=== PATIENT | male | born 1950 | race Two or more races ===

== ENCOUNTER 2024-03-27 16:28 | Inpatient (IN) | payer MEDICARE, MEDICAID, SELFPAY ==
--- NOTE | 2024-03-27 14:25 | XR_ITS ---
Examination: AP chest single view Technique one AP portable semiupright chest single view Exam date and time: March 27, 2024 1719 hrs. Comparison February 10, 2021 Indications: Status post tracheostomy tube placement Findings: Tracheostomy tube tip 5.8 cm above delmy Opacity right base consistent with pneumonia Reduced inspiratory effort Normal heart size Impression: Tracheostomy tube tip 5.8 cm above delmy Right base pneumonia, consider aspiration pneumonia
[2024-03-27 17:45] VITALS: PULSE 96; RESP 19; O2SAT 99
[2024-03-27 17:45] LABS: Basophils # (Auto) 0.1 Thou/mm3 (0.0-0.2); Basophils % (Auto) 1 % (0-2.5); Eosinophils # (Auto) 0.3 Thou/mm3 (0.0-0.5); Eosinophils % (Auto) 3 % (0-10); Hematocrit 31.6 % (41.0-53.0); Immature Granulocytes % (Auto) 0 % (0-0); Immature Granulocytes Auto 0.04 Thou/mm3 (0.00-0.00); Lymphocytes # (Auto) 1.8 Thou/mm3 (1.0-4.8); Lymphocytes % (Auto) 20 % (10-50); Mean Corpuscular HGB Conc 31.6 g/dl (31.0-37.0); Mean Corpuscular Hemoglobin 30.7 pg (25.0-35.0); Mean Corpuscular Volume 97 fL (80-100); Monocytes # (Auto) 0.7 Thou/mm3 (0.0-0.8); Monocytes % (Auto) 8 % (0-12); Neutrophils # (Auto) 6.2 Thou/mm3 (1.8-7.7); Neutrophils % (Auto) 68 % (37-80); Nucleated Red Blood Cell % 0 /100 WBC (0); Platelet Count 248 Thou/mm3 (140-440); RDW Standard Deviation 51.3 fL (35.1-43.9); Red Blood Count 3.26 Miln/mm3 (4.50-5.90)
--- NOTE | 2024-03-27 17:49 | PC.RT ---
per Dr Rolle the ABG should be drawn when the patient settles.
[2024-03-27 18:00] VITALS: BP 106/59; PULSE 88; RESP 20; TEMP 36.1; O2SAT 99
[2024-03-27 18:06] LABS: Alanine Aminotransferase 80 U/L (10-49); Albumin/Globulin Ratio 1.3 (1.2-2.2); Alkaline Phosphatase 214 U/L (46-116); Anion Gap 11 (7-16); Aspartate Amino Transferase 35 U/L (0-34); BUN/Creatinine Ratio 23 Ratio (12-20); Bilirubin,Total 0.3 mg/dL (0.3-1.2); Blood Urea Nitrogen 14 mg/dL (9-23); Calcium 9.6 mg/dL (8.3-10.6); Calcium (Corrected) 9.6 mg/dL (8.5-10.1); Carbon Dioxide 26.7 mMol/L (20.0-31.0); Chloride 102 mMol/L (98-107); Creatinine (Component) 0.6 mg/dL (0.6-1.3); Estimated Creatinine Clearance 80.9 mL/min (>60); Globulin 3.2 gm/dL (2.3-3.5); Glucose 100 mg/dL (74-106); Osmolality,Calculated 279 (275-295); Sodium 140 mMol/L (136-145); Total Protein 7.2 gm/dL (5.7-8.2); eGFR > 60 See Note
[2024-03-27 18:28] VITALS: PULSE 69; RESP 10; O2SAT 100
--- NOTE | 2024-03-27 18:34 | PC.NURSE ---
73 y/o male admit from [facility] at 1613. Arrived on gurney accompanied by 2 cardiovascular operating room nurse. Placed on Vent by RT with settings as follows :AC 10, PC 16, FIO2 99%. V/S 97.0, 88, 20, 106/59. GCS 10. Vietnamese speaking. Oriented to unit, room and admit procedures. Hx of CVA, Dementia, PNA. Recent trach insertion, reddened but no discharge noted. Scabs/abrasions noted to right ear, left and right neck. Rhonchi noted to lungs. Active bowel sounds. GT site noted to have Hypergranulation and drainage. Bruise to right hand. No dermatitis noted. No redness noted to heels or bony prominences. Combative when attempting to reposition resident. Tube feeding started, Jevity 1.2 @ 55ml/hr.
--- NOTE | 2024-03-27 19:25 | PC.NURSE ---
Received resident from [facility] at around 1630. Resident awake and agitated. striking at nursing staff, pulling at life sustaining tubes. resident unable to follow commands. (HX Dementia). assisted resident to bed. on mechanical ventilator, no respiratory distress noted upon arrival vital signs within normal limits. Complete assessment done. No major skin issues noted. Notified MD. order to place mitten to rt hand. carried out most orders. hand off report given to Susannah AMES NOC. family at bedside able to sign consents for medication (seroquel) and application of restrain as needed.
--- NOTE | 2024-03-27 22:11 | ESHP_ITS ---
Physical exam Physical Exam Vital signs: Temp Pulse Resp BP Pulse Ox O2 Del Method FiO2 97.0 F 88 20 106/59 L 99 Mechanical Ventilation 30 03/27/24 18:00 03/27/24 18:00 03/27/24 18:00 03/27/24 18:00 03/27/24 18:00 03/27/24 18:00 03/27/24 17:53 Narrative: VSS Constitutional Comments: VSS HEENT Exam Head: Present normocephalic Eye: Present PERRL ENT: Present mucous membranes moist Neck Exam Neck: Present supple Chest/Breast/Axilla Exam Comments: NAD Respiratory Exam Respiratory: Present chest non-tender, lungs clear, normal breath sounds, no resp distress and patient mechanically ventilated Comments: pr very stable on Ventilator AC mode pressure control of 16 cms H2O generating a minute ventilation of 6L a minute maintaining saturations greater than 95% and in no distress. Cardiovascular Exam Cardiovascular: Present RRR, S1 and S2 Comments: occasional multifocal atrial tachycardia responding well to Ca++ channel blocke rs Abdominal Exam Abdominal: Present soft, normoactive bowel sounds and ostomy Rectal Exam Comments: deferred Exam Comments: NAD Extremities Exam Comments: no edema Back/Spine/Pelvis Exam Comments: NAD Neurological Exam Comments: mostly sleepy, occasionally agitated but controlled on Seroquil. Overtly having Dementia and hence dioriented in person and overtly forgetful Rehabilitation potential Diagnosis (1) CVA, old, aphasia: Status: Chronic (2) Jejunostomy tube present: Status: Chronic (3) Chronic respiratory failure: Status: Chronic (4) Tracheostomy in place: Status: Chronic (5) Ventilator dependent: Status: Chronic (6) Diabetes mellitus type 2 in nonobese: Status: Chronic (7) Dementia: Status: Chronic (8) Hyperlipidemia associated with type 2 diabetes mellitus: Status: Chronic Assessment & Plan Assessment: Pt has multiple organ compromise and remains ventilator dependent for now with G tube feeding and severely handicapped with progressive Dementia and reddering him dependent for all care and bed bound and occasionally in some restraints resultant of agitated behavioral episodes Plan: Current treatment reviewed and continued Prognosis Prognosis: poor for any independent living Goals Nutrional and nursing support to achieve objective of comfort HPI History of Present Illness HPI: pt is a 73 yrs of age male being 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 Pt is on active treatment for DM-II, and on Seroquil for significant agitation with good effect.
[2024-03-28] VITALS (8 sets, daily range): BP systolic 122–155; BP diastolic 62–88; PULSE 84–103; RESP 10–20; TEMP 36.1–36.5; O2SAT 98–100
--- NOTE | 2024-03-28 02:50 | PC.NURSE ---
Resident noted to swing both arms and legs, 5 staff were needed to reposition and change brief, seraquel was not available in the cubix, resident made a hole in the mitten on the mesh side and cause self inflicted scratches to left kulkarni and lateral thigh, new order placed and carried out, resident in room resting with eyes open, HOB elevated, no s/s of distress noted.
--- NOTE | 2024-03-28 04:52 | PC.RT ---
Pt would not allow trach care to be performed, pt is combative and pushed me away and tried to hit me multiple times.
[2024-03-28] MEDS: IPRATROPIUM/ALBUTEROL 3 ML AMPUL.NEB INH ×3 (06:45→19:18)
[2024-03-28] MEDS: QUETIAPINE FUMARATE 100 MG TABLET GT ×2 (10:00→20:49)
[2024-03-28] MEDS: CALCIUM GT (10:00)
[2024-03-28] MEDS: VIT D3 GT (10:00)
[2024-03-28] MEDS: ASPIRIN 81 MG TAB.CHEW GT (10:00)
[2024-03-28] MEDS: PIOGLITAZONE 15 MG TABLET GT (10:00)
--- NOTE | 2024-03-28 10:56 | PC.PT ---
PT eval completed. No RNA/SLAGGER program due to patient is combative and is uncooperative.
[2024-03-28 11:09] LABS: Base Excess 5 (-3-3); HCO3 30 mEq/L (20-26); Inspired Oxygen, FIO2 21 %; O2 Saturation 80 % (91-98); PCO2 47 mmHg (32.0-48.0); pH, Arterial 7.41 (7.35-7.45)
[2024-03-28 11:12] LABS: PO2 46 mmHg (83-108)
[2024-03-28 11:13] LABS: Allen Test Performed/OK; Puncture Site Site Not Noted
--- NOTE | 2024-03-28 12:21 | PC.SS ---
Resident admitted from [facility] for subacute care on ventilator and GT in place for medication and nutrition. Resident is samaritan bahai, no speech unable to make needs known or make any decisions for self. RP is his Meli. Resident does not have POA in place, services offered to RP for Advance Directive resident unable to participate due to diagnosis of dementia. RP does not feel it is necessary and has declined services of POA and conservatorship. Resident currently taking medication for behaviors of being combative to staff related to kicking, biting and hitting. SSD will make daily contact with resident and monitor for changes in mood and behavior, and transitioning to new environment. Resident will have optometry, dental and podiatry consultations.
[2024-03-28] MEDS: DEX/HYPRO/GLY ARTIFICAL TEARS 225 DROP/15 ML BTL BOTH EYES ×2 (13:30→20:50)
--- NOTE | 2024-03-28 13:53 | PC.NURSE ---
Blood gas drawn this morning with critical value, RT mad aware of it.
--- NOTE | 2024-03-28 16:20 | PC.SS ---
This SSD faxed urology consult order and history to urology clinic, clerk Looney called this SSD and said Dr. Acevedo would be here on Sunday or Sunday for bedside consult. Charge nurse made aware.
--- NOTE | 2024-03-28 16:53 | PC.NURSE ---
Resident on tube feeding to run for 24 hours and requiring to hold tube feeding when doing the ADLS to prevent aspiration. Called Cristofer GRECO, tube feeding to run x 22 hours and Gale will evaluate it on Sunday.
[2024-03-29] VITALS (8 sets, daily range): BP systolic 119–141; BP diastolic 56–72; PULSE 73–93; RESP 10–18; TEMP 36.1–36.5; O2SAT 97–100
[2024-03-29] MEDS: DEX/HYPRO/GLY ARTIFICAL TEARS 225 DROP/15 ML BTL BOTH EYES ×3 (05:45→21:53)
[2024-03-29] MEDS: IPRATROPIUM/ALBUTEROL 3 ML AMPUL.NEB INH ×3 (06:30→19:29)
[2024-03-29] MEDS: PIOGLITAZONE 15 MG TABLET GT (08:39)
[2024-03-29] MEDS: ASPIRIN 81 MG TAB.CHEW GT (08:39)
[2024-03-29] MEDS: QUETIAPINE FUMARATE 100 MG TABLET GT ×2 (08:39→20:55)
[2024-03-29] MEDS: CALCIUM GT (08:39)
[2024-03-29] MEDS: VIT D3 GT (08:39)
--- NOTE | 2024-03-29 11:15 | PD.SAPROG ---
Progress Note - SubAcute DIAGNOSIS (1) CVA, old, aphasia: Status: Chronic (2) Jejunostomy tube present: Status: Chronic (3) Chronic respiratory failure: Status: Chronic (4) Tracheostomy in place: Status: Chronic (5) Ventilator dependent: Status: Chronic (6) Diabetes mellitus type 2 in nonobese: Status: Chronic (7) Dementia: Status: Chronic (8) Hyperlipidemia associated with type 2 diabetes mellitus: Status: Chronic OBJECTIVE Most recent vital signs: Last Vital Signs Temp 97.3 F 03/30/24 06:00 Pulse 94 03/30/24 06:30 Resp 14 03/30/24 06:30 BP 129/61 03/30/24 06:00 Pulse Ox 100 03/30/24 06:30 O2 Del Method Mechanical Ventilation 03/29/24 17:43 FiO2 21 03/30/24 06:30 Neurological:: semi-alert (very forgetful because of Dementia, disoriented mostly in place and person and time and resultant agitation well managed on meds) Speech:: grunts Answers questions:: sometimes ( by gesture) Respiratory:: shallow breathing (ventilator dependent) Cardiovascular: RRR Abdomen: soft and nontender Tracheostomy:: to ventilator Feeding per:: G tube Complaints:: none Reviewed Medical Record:: reviewed labs ASSESSMENT & PLAN Assessment: Pt has multiple organ compromise and remains ventilator dependent for now with G tube feeding and severely handicapped with progressive Dementia and rendering him dependent for all care and bed bound and occasionally in some restraints resultant of agitated behavioral episodes Plan: Current treatment reviewed and continued
[2024-03-30] VITALS (8 sets, daily range): BP systolic 122–164; BP diastolic 60–81; PULSE 76–102; RESP 10–18; TEMP 36.2–36.6; O2SAT 97–100
[2024-03-30] MEDS: IPRATROPIUM/ALBUTEROL 3 ML AMPUL.NEB INH ×4 (00:05→18:20)
[2024-03-30] MEDS: DEX/HYPRO/GLY ARTIFICAL TEARS 225 DROP/15 ML BTL BOTH EYES ×3 (05:30→21:11)
[2024-03-30] MEDS: VIT D3 GT (09:42)
[2024-03-30] MEDS: ASPIRIN 81 MG TAB.CHEW GT (09:42)
[2024-03-30] MEDS: CALCIUM GT (09:42)
[2024-03-30] MEDS: QUETIAPINE FUMARATE 100 MG TABLET GT ×2 (09:44→20:20)
[2024-03-30] MEDS: PIOGLITAZONE 15 MG TABLET GT (09:44)
[2024-03-31] VITALS (7 sets, daily range): BP systolic 128–140; BP diastolic 73–77; PULSE 82–97; RESP 11–19; TEMP 36.1; O2SAT 98–100
[2024-03-31] MEDS: IPRATROPIUM/ALBUTEROL 3 ML AMPUL.NEB INH ×4 (00:35→19:48)
[2024-03-31] MEDS: DEX/HYPRO/GLY ARTIFICAL TEARS 225 DROP/15 ML BTL BOTH EYES ×2 (05:59→21:18)
[2024-03-31] MEDS: QUETIAPINE FUMARATE 100 MG TABLET GT ×2 (08:33→20:39)
[2024-03-31] MEDS: ASPIRIN 81 MG TAB.CHEW GT (08:34)
[2024-03-31] MEDS: PIOGLITAZONE 15 MG TABLET GT (08:34)
[2024-03-31] MEDS: CALCIUM GT (08:34)
[2024-03-31] MEDS: VIT D3 GT (08:34)
--- NOTE | 2024-03-31 10:30 | PC.NURSE ---
Band Reamer Machine Operator came in and accidentally elda right great toe. No active bleeding noted at this time.
[2024-04-01] VITALS (9 sets, daily range): BP systolic 108–141; BP diastolic 74–88; PULSE 96–116; RESP 13–31; TEMP 36.5–37.2; O2SAT 95–100
[2024-04-01] MEDS: IPRATROPIUM/ALBUTEROL 3 ML AMPUL.NEB INH ×3 (01:13→11:55)
[2024-04-01] MEDS: DEX/HYPRO/GLY ARTIFICAL TEARS 225 DROP/15 ML BTL BOTH EYES ×2 (06:00→21:04)
[2024-04-01] MEDS: ASPIRIN 81 MG TAB.CHEW GT (08:58)
[2024-04-01] MEDS: PIOGLITAZONE 15 MG TABLET GT (09:03)
[2024-04-01] MEDS: CALCIUM GT (09:03)
[2024-04-01] MEDS: VIT D3 GT (09:03)
[2024-04-01] MEDS: MAGNESIUM HYDROXIDE 30 ML ORAL SUSP ML GT (09:50)
--- NOTE | 2024-04-01 13:58 | PC.NURSE ---
Dr. Acevedo came to check the resident for his bulbar urethral stricture, . said as long as resident dont have any problem from voiding everything is ok, no new recommendation at this time.
--- NOTE | 2024-04-01 15:35 | PC.RT ---
per idt meeting svn changed to prn
[2024-04-01] MEDS: ACETAMINOPHEN 325 MG TABLET 650 MG GT (22:05)
[2024-04-02] VITALS (8 sets, daily range): BP systolic 108–149; BP diastolic 65–86; PULSE 81–98; RESP 11–19; TEMP 36.1–36.7; O2SAT 96–98
[2024-04-02] MEDS: DEX/HYPRO/GLY ARTIFICAL TEARS 225 DROP/15 ML BTL BOTH EYES ×2 (05:45→21:13)
--- NOTE | 2024-04-02 08:52 | URONOTEN_ITS ---
RE: MARTHA ANDUJAR : 1950 DATE: 04/01/2024 The patient is seen, chart is reviewed. Consult is dictated. I was unable to get any information from the patient all the information I obtained is by reviewing the patient's chart ESTABLISHED DIAGNOSES: 1. Dementia. 2. Status post cerebrovascular accident, status post G-tube dependent. 3. Multiple organ compromise remains ventilator dependent. HISTORY OF PRESENT ILLNESS: This is a 73-year-old gentleman. He is admitted to [facility] for long-term care with the issue of chronic respiratory failure, on ventilator support with a tracheostomy and feeding GI tube, with a progressively worsening advanced dementia, status post CVA in 2012. The patient was admitted in the hospital in [place] and had a placement of catheter. The patient was found to have a stricture of bulbous urethra and it was dilated. Subsequently, catheter has been removed and the patient is urinating without a catheter. Past medical history, family history, review of systems, personal history, please refer to patient's history form dated, 03/27/2024, it is in HPI, in EMR. PHYSICAL EXAMINATION: The patient is lying comfortably, not in acute distress. He is on ventilator. The patient has body contractures. RECOMMENDATIONS: From urology point of view, assessment is from the history I reviewed from the patient's chart that he had a stricture of bulbous urethra. He had dilation and placement of catheter, which was subsequently removed. At this time, the patient is urinating without any problem for his bulbous urethra. If he gets recurrence of the stricture, then, he may need to have a dilation and placement of Godinez catheter. I discussed my finding with the RN who is taking care of this patient. DT: 16:44:03 TT: 21:09:00 Ref: [id number] - TID: [id number] JESSY
[2024-04-02] MEDS: PIOGLITAZONE 15 MG TABLET GT (09:01)
[2024-04-02] MEDS: QUETIAPINE FUMARATE 100 MG TABLET GT ×2 (09:01→20:45)
[2024-04-02] MEDS: CALCIUM GT (09:01)
[2024-04-02] MEDS: ASPIRIN 81 MG TAB.CHEW GT (09:01)
[2024-04-02] MEDS: VIT D3 GT (09:01)
[2024-04-02] MEDS: ACETAMINOPHEN 325 MG TABLET 650 MG GT (10:00)
--- NOTE | 2024-04-02 12:01 | PC.NURSE ---
Per spouse resident has received current influenza vaccine; no notations in case record; no [facility] report. Has received Covid MRNA on 10/22/23 amd 04/18/23; this per medical record. Will offer Pneumococcal vaccine and seek consent from daughter, Kim.
--- NOTE | 2024-04-02 22:24 | PD.SAPROG ---
Progress Note - SubAcute DIAGNOSIS (1) CVA, old, aphasia: Status: Chronic (2) Jejunostomy tube present: Status: Chronic (3) Chronic respiratory failure: Status: Chronic (4) Tracheostomy in place: Status: Chronic (5) Ventilator dependent: Status: Chronic (6) Diabetes mellitus type 2 in nonobese: Status: Chronic (7) Dementia: Status: Chronic (8) Hyperlipidemia associated with type 2 diabetes mellitus: Status: Chronic OBJECTIVE Most recent vital signs: Last Vital Signs Temp 97 F 04/02/24 17:33 Pulse 89 04/02/24 17:33 Resp 14 04/02/24 17:33 BP 135/86 H 04/02/24 17:33 Pulse Ox 97 04/02/24 17:33 O2 Del Method Mechanical Ventilation 04/02/24 17:33 FiO2 21 04/02/24 12:05 Neurological:: semi-alert (very forgetful because of Dementia, disoriented mostly in place and person and time and resultant agitation well managed on meds) Speech:: grunts Answers questions:: sometimes ( by gesture) Respiratory:: shallow breathing (ventilator dependent) Cardiovascular: RRR Abdomen: soft and nontender Tracheostomy:: to ventilator Feeding per:: G tube Complaints:: none Reviewed Medical Record:: reviewed labs ASSESSMENT & PLAN Assessment: Pt has multiple organ compromise and remains ventilator dependent for now with G tube feeding and severely handicapped with progressive Dementia and rendering him dependent for all care and bed bound and occasionally in some restraints resultant of agitated behavioral episodes Plan: Current treatment reviewed and continued
[2024-04-03] VITALS (9 sets, daily range): BP systolic 120–127; BP diastolic 46–78; PULSE 77–96; RESP 11–20; TEMP 36.1–36.4; O2SAT 96–98
--- NOTE | 2024-04-03 07:46 | PC.SS ---
Resident is seen laying in bed with head of the bed elevated with call light properly placed with no signs of distress. Resident mood and behavior is adequate, he appears to be adjusting well to new environment. Resident is not showing any signs of target behavior, this SSD followed up with staff who stated he is informed of all task being performed he settles and relaxes allowing staff to complete ADL care on him. Resident will continue medication regimen as ordered by MD, this SSD will continue to make contact with resident and monitor for changes in mood and behavior.
[2024-04-03] MEDS: ASPIRIN 81 MG TAB.CHEW GT (08:42)
[2024-04-03] MEDS: VIT D3 GT (08:43)
[2024-04-03] MEDS: QUETIAPINE FUMARATE 100 MG TABLET GT ×2 (08:43→20:40)
[2024-04-03] MEDS: PIOGLITAZONE 15 MG TABLET GT (08:43)
[2024-04-03] MEDS: CALCIUM GT (08:43)
--- NOTE | 2024-04-03 09:56 | PC.IP ---
IP note: Call to daughter regarding resident's possible current Influenza vaccine and offered pneumonia vaccine. Voice mail message left with request for return call to consent or decline. Spouse declares consent was signed for current Influenza vaccine at another facility; no notation in chart received from [facility] with exception to Covid vaccine received. No CAIR registry report shown in Summary of EMR when entering Covid vaccine notation.
--- NOTE | 2024-04-03 13:38 | PC.NURSE ---
Second call to daughter, Kim regarding vaccine status. Voice mail message to please return call to clarify current vaccine for Influenza and to offer Pneumococcal 20 vaccine. No record in [facility]IR registry.
[2024-04-03] MEDS: DEX/HYPRO/GLY ARTIFICAL TEARS 225 DROP/15 ML BTL BOTH EYES ×2 (14:16→21:26)
[2024-04-03] MEDS: FLU VACC TS 2024-25 (6 MOS UP) 45 MCG/0.5 ML VIAL IMi (15:45)
--- NOTE | 2024-04-03 15:49 | PC.IP ---
After consent received from Kim Rivera RP, administered 0.5ml Afluria 24-25 Trivalent vaccine to left deltoid. Resident tolerated well and was calm, awake. Nakita VEGA informed for VS to be taken every 4 hours.
[2024-04-03] MEDS: ACETAMINOPHEN 325 MG TABLET 650 MG GT (20:40)
[2024-04-04] VITALS (8 sets, daily range): BP systolic 129–140; BP diastolic 60–83; PULSE 62–98; RESP 10–21; TEMP 36.2–36.6; O2SAT 96–100
[2024-04-04] MEDS: DEX/HYPRO/GLY ARTIFICAL TEARS 225 DROP/15 ML BTL BOTH EYES ×3 (05:33→21:19)
[2024-04-04] MEDS: QUETIAPINE FUMARATE 100 MG TABLET GT ×2 (08:38→20:23)
[2024-04-04] MEDS: CALCIUM GT (08:38)
[2024-04-04] MEDS: VIT D3 GT (08:38)
[2024-04-04] MEDS: ASPIRIN 81 MG TAB.CHEW GT (08:38)
[2024-04-04] MEDS: PIOGLITAZONE 15 MG TABLET GT (08:38)
--- NOTE | 2024-04-04 15:43 | PC.SS ---
Room visit: Resident is laying in bed with head of the bed elevated with call light properly placed with no signs of distress. Resident remains on ventilator with trach in place and GT for medication and nutrition. Resident is unable to make needs known his daughter is his decision maker. He will remain in current care as he has no changes in care or condition. This SSD will continue to make contact with resident and monitor for changes in mood and behavior.
[2024-04-04] MEDS: MAGNESIUM HYDROXIDE 30 ML ORAL SUSP ML GT (21:30)
[2024-04-05] VITALS (8 sets, daily range): BP systolic 119–155; BP diastolic 62–81; PULSE 69–111; RESP 12–20; TEMP 36.3–36.4; O2SAT 98–100
[2024-04-05] MEDS: DEX/HYPRO/GLY ARTIFICAL TEARS 225 DROP/15 ML BTL BOTH EYES ×3 (05:30→20:40)
[2024-04-05] MEDS: ASPIRIN 81 MG TAB.CHEW GT (08:56)
[2024-04-05] MEDS: CALCIUM GT (08:57)
[2024-04-05] MEDS: VIT D3 GT (08:57)
[2024-04-05] MEDS: PIOGLITAZONE 15 MG TABLET GT (08:57)
[2024-04-05] MEDS: QUETIAPINE FUMARATE 100 MG TABLET GT ×2 (08:57→20:40)
[2024-04-05] MEDS: BISACODYL 10 MG SUPP.RECT PR (14:00)
[2024-04-05] MEDS: ACETAMINOPHEN 325 MG TABLET 650 MG GT (20:40)
[2024-04-06] VITALS: BP 113/76; PULSE 102; RESP 13; TEMP 36.3
[2024-04-06 00:06] VITALS: PULSE 71; RESP 18; O2SAT 99
[2024-04-06] MEDS: DEX/HYPRO/GLY ARTIFICAL TEARS 225 DROP/15 ML BTL BOTH EYES ×3 (05:18→22:00)
[2024-04-06 05:31] VITALS: BP 122/78; PULSE 99; RESP 15; TEMP 36.3; O2SAT 100
[2024-04-06 06:20] VITALS: PULSE 83; RESP 18; O2SAT 99
[2024-04-06] MEDS: CALCIUM GT (08:25)
[2024-04-06] MEDS: VIT D3 GT (08:25)
[2024-04-06] MEDS: PIOGLITAZONE 15 MG TABLET GT (08:25)
[2024-04-06] MEDS: ASPIRIN 81 MG TAB.CHEW GT (08:25)
[2024-04-06] MEDS: QUETIAPINE FUMARATE 100 MG TABLET GT ×2 (08:28→20:41)
[2024-04-06 12:05] VITALS: PULSE 87; RESP 20; O2SAT 99
--- NOTE | 2024-04-06 16:10 | PD.SAPROG ---
Progress Note - SubAcute DIAGNOSIS (1) CVA, old, aphasia: Status: Chronic (2) Jejunostomy tube present: Status: Chronic (3) Chronic respiratory failure: Status: Chronic (4) Tracheostomy in place: Status: Chronic (5) Ventilator dependent: Status: Chronic (6) Diabetes mellitus type 2 in nonobese: Status: Chronic (7) Dementia: Status: Chronic (8) Hyperlipidemia associated with type 2 diabetes mellitus: Status: Chronic OBJECTIVE Most recent vital signs: Last Vital Signs Temp 97.3 F 04/06/24 05:31 Pulse 87 04/06/24 12:05 Resp 18 04/06/24 06:20 BP 122/78 04/06/24 05:31 Pulse Ox 99 04/06/24 12:05 O2 Del Method Mechanical Ventilation 04/04/24 17:37 FiO2 21 04/06/24 12:05 Neurological:: semi-alert (very forgetful because of Dementia, disoriented mostly in place and person and time and resultant agitation well managed on meds) Speech:: grunts Answers questions:: sometimes ( by gesture) Respiratory:: shallow breathing (ventilator dependent) Cardiovascular: RRR Abdomen: soft and nontender Tracheostomy:: to ventilator Feeding per:: G tube Complaints:: none Reviewed Medical Record:: reviewed labs ASSESSMENT & PLAN Assessment: Pt has multiple organ compromise and remains ventilator dependent for now with G tube feeding and severely handicapped with progressive Dementia and rendering him dependent for all care and bed bound and occasionally in some restraints resultant of agitated behavioral episodes. Hemodynamically stable. Prognosis poor. Plan: Current treatment reviewed and continued
[2024-04-06 18:12] VITALS: PULSE 88; RESP 20; O2SAT 99
[2024-04-06] MEDS: ACETAMINOPHEN 325 MG TABLET 650 MG GT (22:30)
[2024-04-07] VITALS (8 sets, daily range): BP systolic 131–160; BP diastolic 66–84; PULSE 74–100; RESP 12–26; TEMP 36.1–36.3; O2SAT 98–100
[2024-04-07] MEDS: DEX/HYPRO/GLY ARTIFICAL TEARS 225 DROP/15 ML BTL BOTH EYES ×2 (06:44→14:20)
[2024-04-07] MEDS: CALCIUM GT (08:49)
[2024-04-07] MEDS: PIOGLITAZONE 15 MG TABLET GT (08:49)
[2024-04-07] MEDS: QUETIAPINE FUMARATE 100 MG TABLET GT ×2 (08:49→20:44)
[2024-04-07] MEDS: VIT D3 GT (08:49)
[2024-04-07] MEDS: ASPIRIN 81 MG TAB.CHEW GT (08:49)
[2024-04-07] MEDS: ACETAMINOPHEN 325 MG TABLET 650 MG GT ×2 (08:50→20:44)
--- NOTE | 2024-04-07 15:36 | PC.SS ---
Resident seen by engagement liaison/Dr. He for routine toe nail trim, no new orders or recommendation to continue current care.
[2024-04-08] VITALS (9 sets, daily range): BP systolic 112–134; BP diastolic 66–76; PULSE 72–94; RESP 11–20; TEMP 36.1–36.2; O2SAT 97–99
[2024-04-08] MEDS: DEX/HYPRO/GLY ARTIFICAL TEARS 225 DROP/15 ML BTL BOTH EYES ×3 (05:17→21:12)
[2024-04-08] MEDS: PIOGLITAZONE 15 MG TABLET GT (08:50)
[2024-04-08] MEDS: ASPIRIN 81 MG TAB.CHEW GT (08:50)
[2024-04-08] MEDS: CALCIUM GT (08:50)
[2024-04-08] MEDS: VIT D3 GT (08:50)
[2024-04-08] MEDS: QUETIAPINE FUMARATE 100 MG TABLET GT ×2 (08:51→20:50)
[2024-04-09] VITALS (8 sets, daily range): BP systolic 121–142; BP diastolic 57–78; PULSE 79–95; RESP 10–25; TEMP 36–36.4; O2SAT 94–99
[2024-04-09] MEDS: DEX/HYPRO/GLY ARTIFICAL TEARS 225 DROP/15 ML BTL BOTH EYES ×3 (06:04→21:02)
[2024-04-09] MEDS: ASPIRIN 81 MG TAB.CHEW GT (09:06)
[2024-04-09] MEDS: VIT D3 GT (09:07)
[2024-04-09] MEDS: PIOGLITAZONE 15 MG TABLET GT (09:07)
[2024-04-09] MEDS: CALCIUM GT (09:07)
[2024-04-09] MEDS: QUETIAPINE FUMARATE 100 MG TABLET GT ×2 (09:07→20:55)
[2024-04-09] MEDS: MAGNESIUM HYDROXIDE 30 ML ORAL SUSP ML GT (09:12)
[2024-04-10] VITALS (7 sets, daily range): BP systolic 113–153; BP diastolic 67–91; PULSE 73–106; RESP 12–18; TEMP 36.3–36.9; O2SAT 98–99
[2024-04-10] MEDS: VIT D3 GT (09:54)
[2024-04-10] MEDS: PIOGLITAZONE 15 MG TABLET GT (09:54)
[2024-04-10] MEDS: QUETIAPINE FUMARATE 100 MG TABLET GT ×2 (09:54→20:34)
[2024-04-10] MEDS: ASPIRIN 81 MG TAB.CHEW GT (09:54)
[2024-04-10] MEDS: CALCIUM GT (09:54)
[2024-04-10] MEDS: DEX/HYPRO/GLY ARTIFICAL TEARS 225 DROP/15 ML BTL BOTH EYES (13:04)
[2024-04-10 15:52] LABS: Alanine Aminotransferase 48 U/L (10-49); Albumin, Serum 3.9 gm/dL (3.4-4.8); Alkaline Phosphatase 191 U/L (46-116); Aspartate Amino Transferase 24 U/L (0-34); Bilirubin,Direct < 0.1 mg/dL (0.0-0.3); Bilirubin,Total 0.2 mg/dL (0.3-1.2); Total Protein 7.5 gm/dL (5.7-8.2)
--- NOTE | 2024-04-10 17:21 | PD.SAPROG ---
Progress Note - SubAcute DIAGNOSIS (1) CVA, old, aphasia: Status: Chronic (2) Jejunostomy tube present: Status: Chronic (3) Chronic respiratory failure: Status: Chronic (4) Tracheostomy in place: Status: Chronic (5) Ventilator dependent: Status: Chronic (6) Diabetes mellitus type 2 in nonobese: Status: Chronic (7) Dementia: Status: Chronic (8) Hyperlipidemia associated with type 2 diabetes mellitus: Status: Chronic OBJECTIVE Most recent vital signs: Last Vital Signs Temp 98 F 04/10/24 12:00 Pulse 81 04/10/24 13:06 Resp 18 04/10/24 12:00 BP 114/73 04/10/24 12:00 Pulse Ox 98 04/10/24 13:06 O2 Del Method Mechanical Ventilation 04/10/24 06:00 FiO2 21 04/10/24 13:06 Neurological:: semi-alert (very forgetful because of Dementia, disoriented mostly in place and person and time and resultant agitation well managed on meds) Speech:: grunts Answers questions:: sometimes ( by gesture) Respiratory:: shallow breathing (ventilator dependent) Cardiovascular: RRR Abdomen: soft and nontender Tracheostomy:: to ventilator Feeding per:: G tube Complaints:: none Reviewed Medical Record:: reviewed labs ASSESSMENT & PLAN Assessment: Pt has multiple organ compromise and remains ventilator dependent for now with G tube feeding and severely handicapped with progressive Dementia and rendering him dependent for all care and bed bound and occasionally in some restraints resultant of agitated behavioral episodes. Hemodynamically stable. Prognosis poor. Pt on Seroquil and closely monitored with intent to titrate to least effective dose Plan: Current treatment reviewed and continued
[2024-04-11] VITALS (7 sets, daily range): BP systolic 112–118; BP diastolic 74–76; PULSE 68–88; RESP 11–23; TEMP 36.2–36.4; O2SAT 97–98
[2024-04-11] MEDS: CALCIUM GT (09:02)
[2024-04-11] MEDS: ASPIRIN 81 MG TAB.CHEW GT (09:02)
[2024-04-11] MEDS: VIT D3 GT (09:02)
[2024-04-11] MEDS: PIOGLITAZONE 15 MG TABLET GT (09:03)
[2024-04-11] MEDS: QUETIAPINE FUMARATE 100 MG TABLET GT ×2 (09:03→20:52)
[2024-04-12] VITALS (9 sets, daily range): BP systolic 126–132; BP diastolic 64–82; PULSE 74–97; RESP 13–24; TEMP 36.1–36.6; O2SAT 98–99
[2024-04-12] MEDS: ASPIRIN 81 MG TAB.CHEW GT (08:47)
[2024-04-12] MEDS: QUETIAPINE FUMARATE 100 MG TABLET GT ×2 (08:47→21:21)
[2024-04-12] MEDS: PIOGLITAZONE 15 MG TABLET GT (08:47)
[2024-04-12] MEDS: CALCIUM GT (08:47)
[2024-04-12] MEDS: VIT D3 GT (08:47)
[2024-04-12] MEDS: ACETAMINOPHEN 325 MG TABLET 650 MG GT (08:48)
--- NOTE | 2024-04-12 17:26 | PC.NURSE ---
Resident's GT site leaks with coffee ground . GTube needs 7-10 ml of balloon but noted with 12 ml. No coffee ground noted in the residual. No s/s of pain or discomfort. Called Dr Rolle and made aware, with new orders received
--- NOTE | 2024-04-12 17:58 | PC.NURSE ---
Unable to fax new order of Omeprazole due to line is down . Phone in new order of Omeprazole to [facility], spoke with the pharmacist Ella.
--- NOTE | 2024-04-12 18:35 | PC.NURSE ---
During dressing change treatment resident noted to have coffee ground fluid noted to gtube site and on gtube dressing. No coffee ground color found during residual check. Catheter balloon to gtube found to have 12cc while it meant for 7cc-10cc. 5cc was removed and it is now 7cc. Charge nurse was made aware and Dr Rolle was notified. H/H to be drawn as well as new order for omeprazole to start 04/13/24 day shift. Gtube site was cleaned and new dressing placed. Resident resting comfortably.
[2024-04-12 18:39] LABS: Hematocrit 35.5 % (41.0-53.0); Hemoglobin 11.1 g/dL (13.5-16.0)
--- NOTE | 2024-04-12 21:33 | PC.NURSE ---
Resident aggressive towards staff kicking and hitting . 3 staff members present during care.
[2024-04-13] VITALS (8 sets, daily range): BP systolic 131–158; BP diastolic 76–92; PULSE 79–97; RESP 18–26; TEMP 36.1–36.5; O2SAT 98–99
[2024-04-13] MEDS: DEX/HYPRO/GLY ARTIFICAL TEARS 225 DROP/15 ML BTL BOTH EYES ×3 (05:56→21:33)
[2024-04-13] MEDS: CALCIUM GT (08:54)
[2024-04-13] MEDS: VIT D3 GT (08:54)
[2024-04-13] MEDS: PIOGLITAZONE 15 MG TABLET GT (08:56)
[2024-04-13] MEDS: QUETIAPINE FUMARATE 100 MG TABLET GT ×2 (08:57→21:33)
[2024-04-13] MEDS: NON-FORMULARY *SEE COMMENTS* 1 EA EA GT (08:58)
--- NOTE | 2024-04-13 09:12 | PC.NURSE ---
Resident's hemoglobin 11.1 and hematocrit 35.5, GT site leaks leaks with minimal coffee ground, nothing noted in the residual. Called Dr Rolle and made aware of it, order received to hold the ASA for one week and update MD as needed.
[2024-04-14] VITALS (7 sets, daily range): BP systolic 122–154; BP diastolic 76–91; PULSE 62–98; RESP 20–28; TEMP 36–36.7; O2SAT 92–99
[2024-04-14] MEDS: DEX/HYPRO/GLY ARTIFICAL TEARS 225 DROP/15 ML BTL BOTH EYES ×2 (05:50→21:12)
[2024-04-14] MEDS: CALCIUM GT (08:37)
[2024-04-14] MEDS: VIT D3 GT (08:37)
[2024-04-14] MEDS: NON-FORMULARY *SEE COMMENTS* 1 EA EA GT (08:39)
[2024-04-14] MEDS: PIOGLITAZONE 15 MG TABLET GT (08:39)
[2024-04-14] MEDS: QUETIAPINE FUMARATE 100 MG TABLET GT ×2 (08:39→21:06)
--- NOTE | 2024-04-14 21:41 | PD.SAPROG ---
Progress Note - SubAcute DIAGNOSIS (1) CVA, old, aphasia: Status: Chronic (2) Jejunostomy tube present: Status: Chronic (3) Chronic respiratory failure: Status: Chronic (4) Tracheostomy in place: Status: Chronic (5) Ventilator dependent: Status: Chronic (6) Diabetes mellitus type 2 in nonobese: Status: Chronic (7) Dementia: Status: Chronic (8) Hyperlipidemia associated with type 2 diabetes mellitus: Status: Chronic OBJECTIVE Most recent vital signs: Last Vital Signs Temp 96.8 F 04/14/24 17:27 Pulse 62 04/14/24 18:23 Resp 26 H 04/14/24 18:23 BP 122/91 H 04/14/24 17:27 Pulse Ox 98 04/14/24 18:23 O2 Del Method Mechanical Ventilation 04/14/24 17:27 FiO2 21 04/14/24 18:23 Neurological:: semi-alert (very forgetful because of Dementia, disoriented mostly in place and person and time and resultant agitation well managed on meds) Speech:: grunts Answers questions:: sometimes ( by gesture) Respiratory:: shallow breathing (ventilator dependent) Cardiovascular: RRR Abdomen: soft and nontender Tracheostomy:: to ventilator Feeding per:: G tube Complaints:: none Reviewed Medical Record:: reviewed labs ASSESSMENT & PLAN Assessment: Pt has multiple organ compromise and remains ventilator dependent for now with G tube feeding and severely handicapped with progressive Dementia and rendering him dependent for all care and bed bound and occasionally in some restraints resultant of agitated behavioral episodes. Hemodynamically stable. Prognosis poor. Pt on Seroquil and closely monitored with intent to titrate to least effective dose. So far well tolerated. Plan: Current treatment reviewed and continued
[2024-04-15] VITALS (8 sets, daily range): BP systolic 104–139; BP diastolic 65–82; PULSE 74–98; RESP 19–27; TEMP 36.1–36.6; O2SAT 95–98
[2024-04-15] MEDS: PIOGLITAZONE 15 MG TABLET GT (08:53)
[2024-04-15] MEDS: VIT D3 GT (08:53)
[2024-04-15] MEDS: QUETIAPINE FUMARATE 100 MG TABLET GT ×2 (08:53→20:21)
[2024-04-15] MEDS: NON-FORMULARY *SEE COMMENTS* 1 EA EA GT (08:53)
[2024-04-15] MEDS: CALCIUM GT (08:53)
[2024-04-15] MEDS: DEX/HYPRO/GLY ARTIFICAL TEARS 225 DROP/15 ML BTL BOTH EYES ×2 (13:02→21:15)
[2024-04-15] MEDS: MAGNESIUM HYDROXIDE 30 ML ORAL SUSP ML GT (21:15)
[2024-04-16] VITALS: BP 135/69; PULSE 95; RESP 24; TEMP 36.2
[2024-04-16 01:25] VITALS: PULSE 85; RESP 22; O2SAT 98
[2024-04-16 06:00] VITALS: BP 114/65; PULSE 91; RESP 23; TEMP 36.5; O2SAT 98
[2024-04-16 07:15] VITALS: PULSE 79; RESP 24; O2SAT 98
[2024-04-16] MEDS: VIT D3 GT (08:48)
[2024-04-16] MEDS: PIOGLITAZONE 15 MG TABLET GT (08:48)
[2024-04-16] MEDS: NON-FORMULARY *SEE COMMENTS* 1 EA EA GT (08:48)
[2024-04-16] MEDS: CALCIUM GT (08:48)
[2024-04-16] MEDS: QUETIAPINE FUMARATE 100 MG TABLET GT ×2 (08:49→20:34)
--- NOTE | 2024-04-16 12:25 | PD.SAPROG ---
Progress Note - SubAcute DIAGNOSIS (1) CVA, old, aphasia: Status: Chronic (2) Jejunostomy tube present: Status: Chronic (3) Chronic respiratory failure: Status: Chronic (4) Tracheostomy in place: Status: Chronic (5) Ventilator dependent: Status: Chronic (6) Diabetes mellitus type 2 in nonobese: Status: Chronic (7) Dementia: Status: Chronic (8) Hyperlipidemia associated with type 2 diabetes mellitus: Status: Chronic OBJECTIVE Most recent vital signs: Last Vital Signs Temp 97.1 F 04/19/24 06:00 Pulse 78 04/19/24 18:55 Resp 21 H 04/19/24 18:55 BP 155/81 H 04/19/24 06:00 Pulse Ox 96 04/19/24 18:55 O2 Del Method Mechanical Ventilation 04/18/24 18:00 FiO2 21 04/19/24 22:00 Neurological:: semi-alert (very forgetful because of Dementia, disoriented mostly in place and person and time and resultant agitation well managed on meds) Speech:: grunts Answers questions:: sometimes ( by gesture) Respiratory:: shallow breathing (ventilator dependent) Cardiovascular: RRR Abdomen: soft and nontender Tracheostomy:: to ventilator Feeding per:: G tube Complaints:: none Reviewed Medical Record:: reviewed labs ASSESSMENT & PLAN Assessment: Pt has multiple organ compromise and remains ventilator dependent for now with G tube feeding and severely handicapped with progressive Dementia and rendering him dependent for all care and bed bound and occasionally in some restraints resultant of agitated behavioral episodes. Hemodynamically stable. Prognosis poor. Pt on Seroquil and closely monitored with intent to titrate to least effective dose. So far well tolerated with infrequent agitation. Plan: Current treatment reviewed and continued
[2024-04-16 12:53] VITALS: PULSE 73; RESP 24; O2SAT 98
[2024-04-16] MEDS: BISACODYL 10 MG SUPP.RECT PR (14:03)
[2024-04-16] MEDS: DEX/HYPRO/GLY ARTIFICAL TEARS 225 DROP/15 ML BTL BOTH EYES ×2 (14:12→21:30)
[2024-04-16 18:56] VITALS: PULSE 84; RESP 22; O2SAT 99
[2024-04-17] VITALS: BP 134/77; PULSE 87; RESP 21; TEMP 36.1
[2024-04-17 01:11] VITALS: PULSE 71; RESP 26; O2SAT 98
[2024-04-17 05:44] VITALS: BP 145/84; PULSE 80; RESP 23; TEMP 36.1; O2SAT 96
[2024-04-17 07:19] VITALS: PULSE 74; RESP 22; O2SAT 98
[2024-04-17] MEDS: QUETIAPINE FUMARATE 100 MG TABLET GT ×2 (08:48→21:04)
[2024-04-17] MEDS: VIT D3 GT (08:49)
[2024-04-17] MEDS: NON-FORMULARY *SEE COMMENTS* 1 EA EA GT (08:49)
[2024-04-17] MEDS: PIOGLITAZONE 15 MG TABLET GT (08:49)
[2024-04-17] MEDS: CALCIUM GT (08:49)
[2024-04-17 12:28] VITALS: PULSE 77; RESP 19; O2SAT 98
[2024-04-17] MEDS: DEX/HYPRO/GLY ARTIFICAL TEARS 225 DROP/15 ML BTL BOTH EYES ×2 (14:25→21:05)
--- NOTE | 2024-04-17 15:59 | PC.SS ---
Resident was seen in activity room via Ana chair, his mood is stable and adequate. Resident remains on blow by with trach in place and GT for medication and nutrition. He will remain in current care and will continue to have all subacute care needs met by staff. This SSD will continue to make daily contact with resident and monitor for changes in mood and behavior.
[2024-04-17 16:45] VITALS: PULSE 76; RESP 29; O2SAT 98
[2024-04-18] VITALS (8 sets, daily range): BP systolic 123–150; BP diastolic 66–80; PULSE 60–90; RESP 20–26; TEMP 36.1–36.6; O2SAT 94–99
[2024-04-18] MEDS: DEX/HYPRO/GLY ARTIFICAL TEARS 225 DROP/15 ML BTL BOTH EYES (05:17)
[2024-04-18 07:04] LABS: Basophils % (Auto) 1 % (0-2.5); Eosinophils # (Auto) 0.2 Thou/mm3 (0.0-0.5); Eosinophils % (Auto) 3 % (0-10); Hematocrit 35.5 % (41.0-53.0); Hemoglobin 11.3 g/dL (13.5-16.0); Immature Granulocytes % (Auto) 0 % (0-0); Immature Granulocytes Auto 0.02 Thou/mm3 (0.00-0.00); Lymphocytes # (Auto) 1.2 Thou/mm3 (1.0-4.8); Lymphocytes % (Auto) 20 % (10-50); Mean Corpuscular HGB Conc 31.8 g/dl (31.0-37.0); Mean Corpuscular Volume 94 fL (80-100); Monocytes # (Auto) 0.5 Thou/mm3 (0.0-0.8); Monocytes % (Auto) 9 % (0-12); Neutrophils # (Auto) 4.1 Thou/mm3 (1.8-7.7); Neutrophils % (Auto) 68 % (37-80); Nucleated Red Blood Cell % 0 /100 WBC (0); Platelet Count 145 Thou/mm3 (140-440); RDW Standard Deviation 51.6 fL (35.1-43.9); Red Blood Count 3.77 Miln/mm3 (4.50-5.90)
[2024-04-18 07:18] LABS: Glucose Estimated Average 111 mg/dL (80-131); Hemoglobin A1C 5.5 % Hgb (4.8-6.0)
[2024-04-18 07:22] LABS: Alanine Aminotransferase 48 U/L (10-49); Albumin, Serum 4.3 gm/dL (3.4-4.8); Albumin/Globulin Ratio 1.4 (1.2-2.2); Alkaline Phosphatase 175 U/L (46-116); Anion Gap 4 (7-16); Aspartate Amino Transferase 44 U/L (0-34); BUN/Creatinine Ratio 43 Ratio (12-20); Bilirubin,Total 0.3 mg/dL (0.3-1.2); Blood Urea Nitrogen 17 mg/dL (9-23); Calcium 9.6 mg/dL (8.3-10.6); Calcium (Corrected) 9.6 mg/dL (8.5-10.1); Carbon Dioxide 32.5 mMol/L (20.0-31.0); Chloride 99 mMol/L (98-107); Creatinine (Component) 0.4 mg/dL (0.6-1.3); Estimated Creatinine Clearance 121.5 mL/min (>60); Globulin 3.1 gm/dL (2.3-3.5); Glucose 76 mg/dL (74-106); Glucose,Fasting 76 mg/dL (74-106); Osmolality,Calculated 270 (275-295); Potassium 4.1 mMol/L (3.4-5.1); Sodium 135 mMol/L (136-145); Total Protein 7.4 gm/dL (5.7-8.2); eGFR > 60 See Note
[2024-04-18] MEDS: QUETIAPINE FUMARATE 100 MG TABLET GT ×2 (08:35→21:36)
[2024-04-18] MEDS: VIT D3 GT (08:36)
[2024-04-18] MEDS: NON-FORMULARY *SEE COMMENTS* 1 EA EA GT (08:36)
[2024-04-18] MEDS: PIOGLITAZONE 15 MG TABLET GT (08:36)
[2024-04-18] MEDS: CALCIUM GT (08:36)
--- NOTE | 2024-04-18 17:20 | PC.NURSE ---
Routine lab draw done today, called Dr Rolle and verbally reported results, no new orders made
--- NOTE | 2024-04-18 22:20 | PC.NURSE ---
Psychosocial monitoring ongoing. Resident in good spirits, conversing with staff with excitement regarding upcoming discharge to home.
--- NOTE | 2024-04-18 22:31 | PC.NURSE ---
Psychosocial monitoring ongoing. No change in resident noted. Continues to be resistive to care at times with staff providing reassurance.
[2024-04-19] VITALS: BP 142/77; PULSE 78; RESP 20; TEMP 36.1
[2024-04-19 00:43] VITALS: PULSE 86; RESP 21; O2SAT 95
[2024-04-19 06:00] VITALS: BP 155/81; PULSE 85; RESP 20; TEMP 36.2; O2SAT 99
[2024-04-19 07:36] VITALS: PULSE 80; RESP 22; O2SAT 100
[2024-04-19] MEDS: QUETIAPINE FUMARATE 100 MG TABLET GT ×2 (08:44→20:47)
[2024-04-19] MEDS: NON-FORMULARY *SEE COMMENTS* 1 EA EA GT (08:45)
[2024-04-19] MEDS: PIOGLITAZONE 15 MG TABLET GT (08:45)
[2024-04-19] MEDS: CALCIUM GT (08:45)
[2024-04-19] MEDS: VIT D3 GT (08:45)
[2024-04-19 11:44] VITALS: PULSE 72; RESP 14; O2SAT 97
--- NOTE | 2024-04-19 15:31 | PC.NURSE ---
Psychosocial monitoring ongoing with resident in good spirits.
[2024-04-19 18:55] VITALS: PULSE 78; RESP 21; O2SAT 96
[2024-04-20] VITALS (7 sets, daily range): BP systolic 143–185; BP diastolic 64–84; PULSE 65–98; RESP 19–26; TEMP 35.8–36.4; O2SAT 96–98
[2024-04-20] MEDS: CALCIUM GT (08:34)
[2024-04-20] MEDS: VIT D3 GT (08:34)
[2024-04-20] MEDS: NON-FORMULARY *SEE COMMENTS* 1 EA EA GT (08:37)
[2024-04-20] MEDS: PIOGLITAZONE 15 MG TABLET GT (08:37)
[2024-04-20] MEDS: ASPIRIN 81 MG TAB.CHEW GT (08:48)
[2024-04-20] MEDS: QUETIAPINE FUMARATE 100 MG TABLET GT ×2 (08:48→20:22)
[2024-04-20] MEDS: DEX/HYPRO/GLY ARTIFICAL TEARS 225 DROP/15 ML BTL BOTH EYES ×2 (14:02→21:00)
[2024-04-21] VITALS (9 sets, daily range): BP systolic 121–154; BP diastolic 78–85; PULSE 70–108; RESP 10–25; TEMP 35.7–36.3; O2SAT 95–98
--- NOTE | 2024-04-21 06:30 | PC.NURSE ---
RESIDENT ATTEMPTS TO HIT STAFF WHEN PROVIDING CARE. RESIDENT DID NOT PULL ON TUBES TONIGHT.
[2024-04-21] MEDS: VIT D3 GT (08:24)
[2024-04-21] MEDS: CALCIUM GT (08:24)
[2024-04-21] MEDS: ASPIRIN 81 MG TAB.CHEW GT (08:24)
[2024-04-21] MEDS: NON-FORMULARY *SEE COMMENTS* 1 EA EA GT (08:25)
[2024-04-21] MEDS: QUETIAPINE FUMARATE 100 MG TABLET GT ×2 (08:25→20:25)
[2024-04-21] MEDS: PIOGLITAZONE 15 MG TABLET GT (08:25)
--- NOTE | 2024-04-21 12:20 | PD.SAPROG ---
Progress Note - SubAcute DIAGNOSIS (1) CVA, old, aphasia: Status: Chronic (2) Jejunostomy tube present: Status: Chronic (3) Chronic respiratory failure: Status: Chronic (4) Tracheostomy in place: Status: Chronic (5) Ventilator dependent: Status: Chronic (6) Diabetes mellitus type 2 in nonobese: Status: Chronic (7) Dementia: Status: Chronic (8) Hyperlipidemia associated with type 2 diabetes mellitus: Status: Chronic OBJECTIVE Most recent vital signs: Last Vital Signs Temp 97.7 F 04/25/24 18:00 Pulse 81 04/25/24 18:42 Resp 19 04/25/24 18:42 BP 134/75 H 04/25/24 18:00 Pulse Ox 97 04/25/24 18:42 O2 Del Method Mechanical Ventilation 04/25/24 18:00 FiO2 21 04/25/24 18:42 Neurological:: semi-alert (very forgetful because of Dementia, disoriented mostly in place and person and time and resultant agitation well managed on meds) Speech:: grunts Answers questions:: sometimes ( by gesture) Respiratory:: shallow breathing (ventilator dependent) Cardiovascular: RRR Abdomen: soft and nontender Tracheostomy:: to ventilator Feeding per:: G tube Complaints:: none Reviewed Medical Record:: reviewed labs ASSESSMENT & PLAN Assessment: Pt has multiple organ compromise and remains ventilator dependent for now with G tube feeding and severely handicapped with progressive Dementia and rendering him dependent for all care and bed bound and occasionally in some restraints resultant of agitated behavioral episodes. Hemodynamically stable. Prognosis poor. Pt on Seroquil and closely monitored with intent to titrate to least effective dose. So far well tolerated with infrequent agitation. Tolerating feedings Plan: Current treatment reviewed and continued
--- NOTE | 2024-04-21 13:14 | PC.NURSE ---
Resident received bed bath today. Tolerated well. All treatments were done. Resident resting comfortably in bed.
[2024-04-21] MEDS: DEX/HYPRO/GLY ARTIFICAL TEARS 225 DROP/15 ML BTL BOTH EYES ×2 (14:00→21:55)
--- NOTE | 2024-04-21 18:34 | PC.NURSE ---
Resident was stable, combative at times, bed bath was done, and then resident went to sleep and calm down.
[2024-04-22] VITALS (9 sets, daily range): BP systolic 137–146; BP diastolic 73–87; PULSE 71–101; RESP 17–22; TEMP 36.2–36.3; O2SAT 98–100
[2024-04-22] MEDS: DEX/HYPRO/GLY ARTIFICAL TEARS 225 DROP/15 ML BTL BOTH EYES ×2 (05:39→13:50)
--- NOTE | 2024-04-22 06:44 | PC.NURSE ---
Resident was stable, was calm and slept most of the night, no behaviors noted. will continue to monitor.
[2024-04-22] MEDS: ASPIRIN 81 MG TAB.CHEW GT (08:38)
[2024-04-22] MEDS: CALCIUM GT (08:38)
[2024-04-22] MEDS: VIT D3 GT (08:38)
[2024-04-22] MEDS: NON-FORMULARY *SEE COMMENTS* 1 EA EA GT (08:39)
[2024-04-22] MEDS: PIOGLITAZONE 15 MG TABLET GT (08:40)
[2024-04-22] MEDS: QUETIAPINE FUMARATE 100 MG TABLET GT ×2 (08:41→20:51)
[2024-04-23] VITALS (8 sets, daily range): BP systolic 102–150; BP diastolic 62–90; PULSE 71–84; RESP 16–27; TEMP 36.1–36.2; O2SAT 95–99
[2024-04-23] MEDS: DEX/HYPRO/GLY ARTIFICAL TEARS 225 DROP/15 ML BTL BOTH EYES ×3 (05:30→21:15)
[2024-04-23] MEDS: CALCIUM GT (08:31)
[2024-04-23] MEDS: VIT D3 GT (08:31)
[2024-04-23] MEDS: ASPIRIN 81 MG TAB.CHEW GT (08:31)
[2024-04-23] MEDS: QUETIAPINE FUMARATE 100 MG TABLET GT ×2 (08:34→20:32)
[2024-04-23] MEDS: NON-FORMULARY *SEE COMMENTS* 1 EA EA GT (08:34)
[2024-04-23] MEDS: PIOGLITAZONE 15 MG TABLET GT (08:34)
[2024-04-24] VITALS (8 sets, daily range): BP systolic 106–158; BP diastolic 54–84; PULSE 72–86; RESP 19–27; TEMP 36.2–36.4; O2SAT 95–98
[2024-04-24] MEDS: DEX/HYPRO/GLY ARTIFICAL TEARS 225 DROP/15 ML BTL BOTH EYES ×3 (05:10→22:28)
[2024-04-24] MEDS: ASPIRIN 81 MG TAB.CHEW GT (08:50)
[2024-04-24] MEDS: VIT D3 GT (08:51)
[2024-04-24] MEDS: QUETIAPINE FUMARATE 100 MG TABLET GT ×2 (08:51→20:20)
[2024-04-24] MEDS: PIOGLITAZONE 15 MG TABLET GT (08:51)
[2024-04-24] MEDS: CALCIUM GT (08:51)
[2024-04-24] MEDS: NON-FORMULARY *SEE COMMENTS* 1 EA EA GT (08:52)
[2024-04-24] MEDS: MAGNESIUM HYDROXIDE 30 ML ORAL SUSP ML GT (08:53)
[2024-04-24] MEDS: BISACODYL 10 MG SUPP.RECT PR (22:08)
[2024-04-25] VITALS (8 sets, daily range): BP systolic 113–152; BP diastolic 68–83; PULSE 79–97; RESP 19–27; TEMP 36.1–36.6; O2SAT 95–98
[2024-04-25] MEDS: DEX/HYPRO/GLY ARTIFICAL TEARS 225 DROP/15 ML BTL BOTH EYES ×3 (05:50→21:43)
[2024-04-25] MEDS: ASPIRIN 81 MG TAB.CHEW GT (08:19)
[2024-04-25] MEDS: NON-FORMULARY *SEE COMMENTS* 1 EA EA GT (08:19)
[2024-04-25] MEDS: VIT D3 GT (08:19)
[2024-04-25] MEDS: CALCIUM GT (08:19)
[2024-04-25] MEDS: QUETIAPINE FUMARATE 100 MG TABLET GT ×2 (08:20→20:10)
[2024-04-25] MEDS: PIOGLITAZONE 15 MG TABLET GT (08:20)
[2024-04-25] MEDS: ACETAMINOPHEN 325 MG TABLET 650 MG GT (22:30)
[2024-04-26] VITALS (8 sets, daily range): BP systolic 109–133; BP diastolic 57–72; PULSE 71–99; RESP 15–29; TEMP 36.2–36.6; O2SAT 97–98
[2024-04-26] MEDS: DEX/HYPRO/GLY ARTIFICAL TEARS 225 DROP/15 ML BTL BOTH EYES ×3 (05:26→21:10)
[2024-04-26] MEDS: CALCIUM GT (08:35)
[2024-04-26] MEDS: ASPIRIN 81 MG TAB.CHEW GT (08:35)
[2024-04-26] MEDS: VIT D3 GT (08:35)
[2024-04-26] MEDS: QUETIAPINE FUMARATE 100 MG TABLET GT ×2 (08:36→20:25)
[2024-04-26] MEDS: PIOGLITAZONE 15 MG TABLET GT (08:36)
[2024-04-26] MEDS: ACETAMINOPHEN 325 MG TABLET 650 MG GT ×2 (08:37→17:54)
[2024-04-26] MEDS: NON-FORMULARY *SEE COMMENTS* 1 EA EA GT (08:42)
[2024-04-27] VITALS (8 sets, daily range): BP systolic 118–145; BP diastolic 64–83; PULSE 84–99; RESP 16–24; TEMP 36.3–36.7; O2SAT 95–98
[2024-04-27] MEDS: DEX/HYPRO/GLY ARTIFICAL TEARS 225 DROP/15 ML BTL BOTH EYES ×3 (05:10→21:31)
[2024-04-27] MEDS: ASPIRIN 81 MG TAB.CHEW GT (08:21)
[2024-04-27] MEDS: CALCIUM GT (08:22)
[2024-04-27] MEDS: VIT D3 GT (08:22)
[2024-04-27] MEDS: NON-FORMULARY *SEE COMMENTS* 1 EA EA GT (08:24)
[2024-04-27] MEDS: PIOGLITAZONE 15 MG TABLET GT (08:40)
[2024-04-27] MEDS: QUETIAPINE FUMARATE 100 MG TABLET GT ×2 (08:40→20:37)
[2024-04-28] VITALS (8 sets, daily range): BP systolic 135–146; BP diastolic 80–89; PULSE 72–91; RESP 18–26; TEMP 36.2–36.7; O2SAT 96–100
[2024-04-28] MEDS: DEX/HYPRO/GLY ARTIFICAL TEARS 225 DROP/15 ML BTL BOTH EYES ×3 (05:38→22:05)
[2024-04-28] MEDS: VIT D3 GT (08:59)
[2024-04-28] MEDS: NON-FORMULARY *SEE COMMENTS* 1 EA EA GT (08:59)
[2024-04-28] MEDS: CALCIUM GT (08:59)
[2024-04-28] MEDS: ASPIRIN 81 MG TAB.CHEW GT (08:59)
[2024-04-28] MEDS: PIOGLITAZONE 15 MG TABLET GT (08:59)
[2024-04-28] MEDS: QUETIAPINE FUMARATE 100 MG TABLET GT ×2 (09:00→21:05)
[2024-04-29] VITALS (8 sets, daily range): BP systolic 124–142; BP diastolic 68–70; PULSE 78–90; RESP 21–31; TEMP 36.1–36.6; O2SAT 97–99
[2024-04-29] MEDS: DEX/HYPRO/GLY ARTIFICAL TEARS 225 DROP/15 ML BTL BOTH EYES ×3 (05:20→21:02)
[2024-04-29] MEDS: QUETIAPINE FUMARATE 100 MG TABLET GT ×2 (08:47→21:02)
[2024-04-29] MEDS: ASPIRIN 81 MG TAB.CHEW GT (08:56)
[2024-04-29] MEDS: VIT D3 GT (08:56)
[2024-04-29] MEDS: CALCIUM GT (08:56)
[2024-04-29] MEDS: PIOGLITAZONE 15 MG TABLET GT (08:56)
[2024-04-29] MEDS: NON-FORMULARY *SEE COMMENTS* 1 EA EA GT (08:57)
[2024-04-29] MEDS: ACETAMINOPHEN 325 MG TABLET 650 MG GT (21:04)
--- NOTE | 2024-04-29 21:28 | PD.SAPROG ---
Progress Note - SubAcute DIAGNOSIS (1) CVA, old, aphasia: Status: Chronic (2) Jejunostomy tube present: Status: Chronic (3) Chronic respiratory failure: Status: Chronic (4) Tracheostomy in place: Status: Chronic (5) Ventilator dependent: Status: Chronic (6) Diabetes mellitus type 2 in nonobese: Status: Chronic (7) Dementia: Status: Chronic (8) Hyperlipidemia associated with type 2 diabetes mellitus: Status: Chronic OBJECTIVE Most recent vital signs: Last Vital Signs Temp 97.4 F 04/29/24 17:47 Pulse 84 04/29/24 17:47 Resp 24 H 04/29/24 17:47 BP 142/68 H 04/29/24 17:47 Pulse Ox 98 04/29/24 17:47 O2 Del Method Mechanical Ventilation 04/29/24 17:47 FiO2 21 04/29/24 12:58 Neurological:: semi-alert (very forgetful because of Dementia, disoriented mostly in place and person and time and resultant agitation well managed on meds) Speech:: grunts Answers questions:: sometimes ( by gesture) Respiratory:: shallow breathing (ventilator dependent) Cardiovascular: RRR Abdomen: soft and nontender Tracheostomy:: to ventilator Feeding per:: G tube Complaints:: none Reviewed Medical Record:: reviewed labs ASSESSMENT & PLAN Assessment: Pt has multiple organ compromise and remains ventilator dependent for now with G tube feeding and severely handicapped with progressive Dementia and rendering him dependent for all care and bed bound and occasionally in some restraints resultant of agitated behavioral episodes. Hemodynamically stable. Prognosis poor. Pt on Seroquil and closely monitored with intent to titrate to least effective dose. So far well tolerated with infrequent agitation. Tolerating feedings. no pain Plan: Current treatment reviewed and continued
[2024-04-30] VITALS (8 sets, daily range): BP systolic 112–158; BP diastolic 51–76; PULSE 65–90; RESP 24–31; TEMP 36.2–36.6; O2SAT 97–99
[2024-04-30] MEDS: ASPIRIN 81 MG TAB.CHEW GT (08:48)
[2024-04-30] MEDS: CALCIUM GT (08:50)
[2024-04-30] MEDS: VIT D3 GT (08:50)
[2024-04-30] MEDS: PIOGLITAZONE 15 MG TABLET GT (08:51)
[2024-04-30] MEDS: NON-FORMULARY *SEE COMMENTS* 1 EA EA GT (08:51)
[2024-04-30] MEDS: QUETIAPINE FUMARATE 100 MG TABLET GT ×2 (08:52→21:03)
--- NOTE | 2024-04-30 12:55 | PC.NURSE ---
Seen by Dr Rolle, no new orders made.
[2024-04-30] MEDS: DEX/HYPRO/GLY ARTIFICAL TEARS 225 DROP/15 ML BTL BOTH EYES (14:20)
[2024-05-01] VITALS (8 sets, daily range): BP systolic 116–158; BP diastolic 59–85; PULSE 72–97; RESP 21–28; TEMP 36.2–36.5; O2SAT 95–99
[2024-05-01] MEDS: QUETIAPINE FUMARATE 100 MG TABLET GT ×2 (09:00→20:32)
[2024-05-01] MEDS: VIT D3 GT (09:00)
[2024-05-01] MEDS: CALCIUM GT (09:00)
[2024-05-01] MEDS: NON-FORMULARY *SEE COMMENTS* 1 EA EA GT (09:00)
[2024-05-01] MEDS: ASPIRIN 81 MG TAB.CHEW GT (09:00)
[2024-05-01] MEDS: PIOGLITAZONE 15 MG TABLET GT (09:00)
[2024-05-01] MEDS: DEX/HYPRO/GLY ARTIFICAL TEARS 225 DROP/15 ML BTL BOTH EYES ×2 (14:00→21:50)
[2024-05-02] VITALS (8 sets, daily range): BP systolic 114–131; BP diastolic 66–72; PULSE 76–88; RESP 16–22; TEMP 36.1–36.7; O2SAT 97–98
[2024-05-02] MEDS: DEX/HYPRO/GLY ARTIFICAL TEARS 225 DROP/15 ML BTL BOTH EYES ×3 (06:00→21:55)
[2024-05-02] MEDS: ASPIRIN 81 MG TAB.CHEW GT (08:24)
[2024-05-02] MEDS: CALCIUM GT (08:24)
[2024-05-02] MEDS: VIT D3 GT (08:24)
[2024-05-02] MEDS: PIOGLITAZONE 15 MG TABLET GT (08:25)
[2024-05-02] MEDS: QUETIAPINE FUMARATE 100 MG TABLET GT ×2 (08:25→20:26)
[2024-05-02] MEDS: NON-FORMULARY *SEE COMMENTS* 1 EA EA GT (08:25)
[2024-05-03] VITALS (8 sets, daily range): BP systolic 129–140; BP diastolic 59–68; PULSE 73–88; RESP 17–27; TEMP 36.3–37; O2SAT 97–99
[2024-05-03] MEDS: DEX/HYPRO/GLY ARTIFICAL TEARS 225 DROP/15 ML BTL BOTH EYES ×3 (05:32→21:50)
[2024-05-03] MEDS: QUETIAPINE FUMARATE 100 MG TABLET GT ×2 (08:28→20:51)
[2024-05-03] MEDS: NON-FORMULARY *SEE COMMENTS* 1 EA EA GT (08:29)
[2024-05-03] MEDS: VIT D3 GT (08:29)
[2024-05-03] MEDS: CALCIUM GT (08:29)
[2024-05-03] MEDS: PIOGLITAZONE 15 MG TABLET GT (08:29)
[2024-05-03] MEDS: ASPIRIN 81 MG TAB.CHEW GT (08:29)
[2024-05-04] VITALS (9 sets, daily range): BP systolic 113–140; BP diastolic 62–75; PULSE 72–99; RESP 10–32; TEMP 36.8–38.3; O2SAT 96–99
[2024-05-04] MEDS: DEX/HYPRO/GLY ARTIFICAL TEARS 225 DROP/15 ML BTL BOTH EYES ×3 (05:15→22:00)
[2024-05-04] MEDS: ASPIRIN 81 MG TAB.CHEW GT (08:25)
[2024-05-04] MEDS: VIT D3 GT (08:26)
[2024-05-04] MEDS: CALCIUM GT (08:26)
[2024-05-04] MEDS: NON-FORMULARY *SEE COMMENTS* 1 EA EA GT (08:27)
[2024-05-04] MEDS: QUETIAPINE FUMARATE 100 MG TABLET GT ×2 (08:27→20:33)
[2024-05-04] MEDS: PIOGLITAZONE 15 MG TABLET GT (08:27)
--- NOTE | 2024-05-04 11:24 | PD.SAPROG ---
Progress Note - SubAcute DIAGNOSIS (1) CVA, old, aphasia: Status: Chronic (2) Jejunostomy tube present: Status: Chronic (3) Chronic respiratory failure: Status: Chronic (4) Tracheostomy in place: Status: Chronic (5) Ventilator dependent: Status: Chronic (6) Diabetes mellitus type 2 in nonobese: Status: Chronic (7) Dementia: Status: Chronic (8) Hyperlipidemia associated with type 2 diabetes mellitus: Status: Chronic OBJECTIVE Most recent vital signs: Last Vital Signs Temp 98.5 F 05/04/24 06:00 Pulse 91 05/04/24 06:20 Resp 28 H 05/04/24 06:20 BP 134/75 H 05/04/24 06:00 Pulse Ox 97 05/04/24 06:20 O2 Del Method Mechanical Ventilation 05/03/24 17:20 FiO2 21 05/04/24 06:20 Neurological:: semi-alert (very forgetful because of Dementia, disoriented mostly in place and person and time and resultant agitation well managed on meds) Speech:: grunts Answers questions:: sometimes ( by gesture) Respiratory:: shallow breathing (ventilator dependent) Cardiovascular: RRR Abdomen: soft and nontender Tracheostomy:: to ventilator Feeding per:: G tube Complaints:: none Reviewed Medical Record:: reviewed labs ASSESSMENT & PLAN Assessment: Pt has multiple organ compromise and remains ventilator dependent for now with G tube feeding and severely handicapped with progressive Dementia and rendering him dependent for all care and bed bound and occasionally in some restraints resultant of agitated behavioral episodes. Hemodynamically stable. Prognosis poor. Pt on Seroquil and closely monitored with intent to titrate to least effective dose. So far well tolerated with infrequent agitation. Tolerating feedings. no pain . Prognostic outlook very limited. Plan: Current treatment reviewed and continued
[2024-05-04] MEDS: ACETAMINOPHEN 325 MG TABLET 650 MG GT (17:00)
[2024-05-05] VITALS (8 sets, daily range): BP systolic 106–132; BP diastolic 63–68; PULSE 77–97; RESP 21–29; TEMP 36.3–36.6; O2SAT 97–99
[2024-05-05] MEDS: DEX/HYPRO/GLY ARTIFICAL TEARS 225 DROP/15 ML BTL BOTH EYES ×3 (05:26→21:55)
[2024-05-05] MEDS: ASPIRIN 81 MG TAB.CHEW GT (09:40)
[2024-05-05] MEDS: VIT D3 GT (09:40)
[2024-05-05] MEDS: QUETIAPINE FUMARATE 100 MG TABLET GT ×2 (09:40→20:54)
[2024-05-05] MEDS: PIOGLITAZONE 15 MG TABLET GT (09:40)
[2024-05-05] MEDS: NON-FORMULARY *SEE COMMENTS* 1 EA EA GT (09:40)
[2024-05-05] MEDS: CALCIUM GT (09:40)
[2024-05-06] VITALS (8 sets, daily range): BP systolic 124–144; BP diastolic 52–85; PULSE 74–93; RESP 20–32; TEMP 36.6–36.7; O2SAT 96–99
[2024-05-06] MEDS: DEX/HYPRO/GLY ARTIFICAL TEARS 225 DROP/15 ML BTL BOTH EYES ×3 (05:15→22:40)
[2024-05-06] MEDS: ASPIRIN 81 MG TAB.CHEW GT (08:42)
[2024-05-06] MEDS: CALCIUM GT (08:42)
[2024-05-06] MEDS: VIT D3 GT (08:42)
[2024-05-06] MEDS: NON-FORMULARY *SEE COMMENTS* 1 EA EA GT (08:43)
[2024-05-06] MEDS: PIOGLITAZONE 15 MG TABLET GT (08:43)
[2024-05-06] MEDS: QUETIAPINE FUMARATE 100 MG TABLET GT ×2 (08:44→20:25)
[2024-05-07] VITALS (8 sets, daily range): BP systolic 134–140; BP diastolic 69–83; PULSE 69–97; RESP 20–28; TEMP 36.6–36.8; O2SAT 96–98; BMI 21.5
[2024-05-07] MEDS: DEX/HYPRO/GLY ARTIFICAL TEARS 225 DROP/15 ML BTL BOTH EYES ×3 (06:03→21:03)
--- NOTE | 2024-05-07 07:45 | PD.SAPROG ---
Progress Note - SubAcute DIAGNOSIS (1) CVA, old, aphasia: Status: Chronic (2) Jejunostomy tube present: Status: Chronic (3) Chronic respiratory failure: Status: Chronic (4) Tracheostomy in place: Status: Chronic (5) Ventilator dependent: Status: Chronic (6) Diabetes mellitus type 2 in nonobese: Status: Chronic (7) Dementia: Status: Chronic (8) Hyperlipidemia associated with type 2 diabetes mellitus: Status: Chronic OBJECTIVE Most recent vital signs: Last Vital Signs Temp 97.8 F 05/07/24 05:54 Pulse 97 05/07/24 05:54 Resp 27 H 05/07/24 05:54 BP 140/83 H 05/07/24 05:54 Pulse Ox 97 05/07/24 05:54 O2 Del Method Mechanical Ventilation 05/07/24 05:54 FiO2 21 05/07/24 00:52 Neurological:: semi-alert (very forgetful because of Dementia, disoriented mostly in place and person and time and resultant agitation well managed on meds) Speech:: grunts Answers questions:: sometimes ( by gesture) Respiratory:: shallow breathing (ventilator dependent) Cardiovascular: RRR Abdomen: soft and nontender Tracheostomy:: to ventilator Feeding per:: G tube Complaints:: none Reviewed Medical Record:: reviewed labs ASSESSMENT & PLAN Assessment: Pt has multiple organ compromise and remains ventilator dependent for now with G tube feeding and severely handicapped with progressive Dementia and rendering him dependent for all care and bed bound and occasionally in some restraints resultant of agitated behavioral episodes. Hemodynamically stable. Prognosis poor. Pt on Seroquil and closely monitored with intent to titrate to least effective dose. So far well tolerated with infrequent agitation. Tolerating feedings. no pain . Prognostic outlook very limited. Plan: Current treatment reviewed and continued
[2024-05-07] MEDS: ASPIRIN 81 MG TAB.CHEW GT (08:34)
[2024-05-07] MEDS: VIT D3 GT (08:35)
[2024-05-07] MEDS: CALCIUM GT (08:35)
[2024-05-07] MEDS: CARBAMIDE PEROXIDE OTIC SOL 15 ML BTL 5 DROP BOTH EARS ×2 (08:36→21:03)
[2024-05-07] MEDS: NON-FORMULARY *SEE COMMENTS* 1 EA EA GT (08:37)
[2024-05-07] MEDS: QUETIAPINE FUMARATE 100 MG TABLET GT ×2 (08:37→20:57)
[2024-05-07] MEDS: PIOGLITAZONE 15 MG TABLET GT (08:37)
--- NOTE | 2024-05-07 11:22 | PC.SS ---
Resident seen by Dr. Scott/JEMIMA for oral exam. Resident tolerated treatment will with no new recommendations. Resident to continue current care and will be seen by YURIYS annually and PRN.
[2024-05-08] VITALS (8 sets, daily range): BP systolic 116–150; BP diastolic 67–76; PULSE 70–93; RESP 10–28; TEMP 36.5–37; O2SAT 98–99
[2024-05-08] MEDS: DEX/HYPRO/GLY ARTIFICAL TEARS 225 DROP/15 ML BTL BOTH EYES ×2 (05:35→13:51)
[2024-05-08] MEDS: VIT D3 GT (08:29)
[2024-05-08] MEDS: CALCIUM GT (08:29)
[2024-05-08] MEDS: ASPIRIN 81 MG TAB.CHEW GT (08:29)
[2024-05-08] MEDS: CARBAMIDE PEROXIDE OTIC SOL 15 ML BTL 5 DROP BOTH EARS (08:30)
[2024-05-08] MEDS: NON-FORMULARY *SEE COMMENTS* 1 EA EA GT (08:31)
[2024-05-08] MEDS: QUETIAPINE FUMARATE 100 MG TABLET GT ×2 (08:31→21:08)
[2024-05-08] MEDS: PIOGLITAZONE 15 MG TABLET GT (08:31)
[2024-05-09] VITALS (8 sets, daily range): BP systolic 127–145; BP diastolic 57–78; PULSE 70–99; RESP 10–24; TEMP 36.4–36.7; O2SAT 97–99
[2024-05-09] MEDS: CALCIUM GT (08:36)
[2024-05-09] MEDS: NON-FORMULARY *SEE COMMENTS* 1 EA EA GT (08:36)
[2024-05-09] MEDS: VIT D3 GT (08:36)
[2024-05-09] MEDS: ASPIRIN 81 MG TAB.CHEW GT (08:36)
[2024-05-09] MEDS: QUETIAPINE FUMARATE 100 MG TABLET GT ×2 (08:37→20:57)
[2024-05-09] MEDS: PIOGLITAZONE 15 MG TABLET GT (08:37)
[2024-05-09] MEDS: DEX/HYPRO/GLY ARTIFICAL TEARS 225 DROP/15 ML BTL BOTH EYES ×2 (13:41→21:55)
--- NOTE | 2024-05-09 14:11 | PC.SS ---
Room visit: resident is laying in bed with head of the bed elevated with call light properly placed with no signs of distress. Resident is unable to make needs known, due to absence of speech. His daughter Kim is his decision maker. Resident remains on ventilator with trach in place and GT for medication and nutrition. Resident will remain in current care and will have all subacute care needs met by staff. This SSD will continue to make daily contact with resident and monitor for changes in mood and behavior.
[2024-05-09] MEDS: CARBAMIDE PEROXIDE OTIC SOL 15 ML BTL 5 DROP BOTH EARS (20:38)
[2024-05-10] VITALS (8 sets, daily range): BP systolic 117–140; BP diastolic 52–83; PULSE 82–102; RESP 16–26; TEMP 36.4–36.6; O2SAT 92–98
[2024-05-10] MEDS: DEX/HYPRO/GLY ARTIFICAL TEARS 225 DROP/15 ML BTL BOTH EYES ×3 (06:00→21:40)
[2024-05-10] MEDS: ASPIRIN 81 MG TAB.CHEW GT (08:42)
[2024-05-10] MEDS: CALCIUM GT (08:42)
[2024-05-10] MEDS: VIT D3 GT (08:42)
[2024-05-10] MEDS: NON-FORMULARY *SEE COMMENTS* 1 EA EA GT (08:43)
[2024-05-10] MEDS: PIOGLITAZONE 15 MG TABLET GT (08:43)
[2024-05-10] MEDS: QUETIAPINE FUMARATE 100 MG TABLET GT ×2 (08:43→20:56)
[2024-05-10] MEDS: ACETAMINOPHEN 325 MG TABLET 650 MG GT (11:44)
[2024-05-10] MEDS: CARBAMIDE PEROXIDE OTIC SOL 15 ML BTL 5 DROP BOTH EARS (20:55)
[2024-05-11] VITALS (7 sets, daily range): BP systolic 129–154; BP diastolic 68–82; PULSE 85–105; RESP 24–29; TEMP 36.6–36.8; O2SAT 97–98
[2024-05-11] MEDS: DEX/HYPRO/GLY ARTIFICAL TEARS 225 DROP/15 ML BTL BOTH EYES ×3 (05:30→21:23)
[2024-05-11] MEDS: VIT D3 GT (08:51)
[2024-05-11] MEDS: NON-FORMULARY *SEE COMMENTS* 1 EA EA GT (08:51)
[2024-05-11] MEDS: CALCIUM GT (08:51)
[2024-05-11] MEDS: ASPIRIN 81 MG TAB.CHEW GT (08:51)
[2024-05-11] MEDS: PIOGLITAZONE 15 MG TABLET GT (08:51)
[2024-05-11] MEDS: QUETIAPINE FUMARATE 100 MG TABLET GT ×2 (08:51→20:52)
--- NOTE | 2024-05-11 21:29 | PD.SAPROG ---
Progress Note - SubAcute DIAGNOSIS (1) CVA, old, aphasia: Status: Chronic (2) Jejunostomy tube present: Status: Chronic (3) Chronic respiratory failure: Status: Chronic (4) Tracheostomy in place: Status: Chronic (5) Ventilator dependent: Status: Chronic (6) Diabetes mellitus type 2 in nonobese: Status: Chronic (7) Dementia: Status: Chronic (8) Hyperlipidemia associated with type 2 diabetes mellitus: Status: Chronic OBJECTIVE Most recent vital signs: Last Vital Signs Temp 97.8 F 05/11/24 17:13 Pulse 99 05/11/24 17:13 Resp 29 H 05/11/24 17:13 BP 154/71 H 05/11/24 17:13 Pulse Ox 98 05/11/24 17:13 O2 Del Method Mechanical Ventilation 05/11/24 17:13 FiO2 21 05/11/24 11:00 Neurological:: semi-alert (very forgetful because of Dementia, disoriented mostly in place and person and time and resultant agitation well managed on meds) Speech:: grunts Answers questions:: sometimes ( by gesture) Respiratory:: shallow breathing (ventilator dependent) Cardiovascular: RRR Abdomen: soft and nontender Tracheostomy:: to ventilator Feeding per:: G tube Complaints:: none Reviewed Medical Record:: reviewed labs ASSESSMENT & PLAN Assessment: Pt has multiple organ compromise and remains ventilator dependent for now with G tube feeding and severely handicapped with progressive Dementia and rendering him dependent for all care and bed bound and occasionally in some restraints resultant of agitated behavioral episodes. Hemodynamically stable. Prognosis poor. Pt on Seroquil and closely monitored with intent to titrate to least effective dose. So far well tolerated with infrequent agitation. Tolerating feedings. no pain . Prognostic outlook very limited. Plan: Current treatment reviewed and continued
[2024-05-12] VITALS (8 sets, daily range): BP systolic 122–136; BP diastolic 70–87; PULSE 79–103; RESP 10–26; TEMP 36.4–36.7; O2SAT 96–99
[2024-05-12] MEDS: DEX/HYPRO/GLY ARTIFICAL TEARS 225 DROP/15 ML BTL BOTH EYES ×3 (05:27→21:21)
[2024-05-12] MEDS: ASPIRIN 81 MG TAB.CHEW GT (08:27)
[2024-05-12] MEDS: VIT D3 GT (08:27)
[2024-05-12] MEDS: CALCIUM GT (08:27)
[2024-05-12] MEDS: QUETIAPINE FUMARATE 100 MG TABLET GT ×2 (08:27→21:06)
[2024-05-12] MEDS: NON-FORMULARY *SEE COMMENTS* 1 EA EA GT (08:27)
[2024-05-12] MEDS: PIOGLITAZONE 15 MG TABLET GT (08:27)
[2024-05-13] VITALS (8 sets, daily range): BP systolic 119–140; BP diastolic 54–80; PULSE 78–98; RESP 20–27; TEMP 36.4–36.7; O2SAT 25–98
[2024-05-13] MEDS: DEX/HYPRO/GLY ARTIFICAL TEARS 225 DROP/15 ML BTL BOTH EYES ×2 (05:17→21:02)
[2024-05-13] MEDS: ASPIRIN 81 MG TAB.CHEW GT (08:38)
[2024-05-13] MEDS: PIOGLITAZONE 15 MG TABLET GT (08:39)
[2024-05-13] MEDS: VIT D3 GT (08:39)
[2024-05-13] MEDS: QUETIAPINE FUMARATE 100 MG TABLET GT ×2 (08:39→21:01)
[2024-05-13] MEDS: NON-FORMULARY *SEE COMMENTS* 1 EA EA GT (08:39)
[2024-05-13] MEDS: CALCIUM GT (08:39)
[2024-05-14] VITALS (8 sets, daily range): BP systolic 137–155; BP diastolic 58–91; PULSE 64–91; RESP 18–30; TEMP 35.9–36.7; O2SAT 20–99
[2024-05-14] MEDS: DEX/HYPRO/GLY ARTIFICAL TEARS 225 DROP/15 ML BTL BOTH EYES ×3 (06:08→21:22)
[2024-05-14] MEDS: QUETIAPINE FUMARATE 100 MG TABLET GT ×2 (08:36→21:22)
[2024-05-14] MEDS: CALCIUM GT (08:37)
[2024-05-14] MEDS: NON-FORMULARY *SEE COMMENTS* 1 EA EA GT (08:37)
[2024-05-14] MEDS: VIT D3 GT (08:37)
[2024-05-14] MEDS: ASPIRIN 81 MG TAB.CHEW GT (08:37)
[2024-05-14] MEDS: PIOGLITAZONE 15 MG TABLET GT (08:38)
--- NOTE | 2024-05-14 13:41 | PC.SS ---
Room visit: Resident is laying in bed with head of the bed elevated with call ight properply placed with no signs of distress. Resident remains on ventilator with trach in place and GT for medication and nutrition. Resident is non verbal unable to make needs known, his decision maker is his daughter Kim Sosa. Resident will remain in current care and will continue to have all subacute care needs met by staff. This SSD will continue to make daily room visits.
[2024-05-15] VITALS (8 sets, daily range): BP systolic 124–130; BP diastolic 69–80; PULSE 81–109; RESP 14–29; TEMP 36.4–36.7; O2SAT 97–98
[2024-05-15] MEDS: DEX/HYPRO/GLY ARTIFICAL TEARS 225 DROP/15 ML BTL BOTH EYES ×3 (05:19→21:06)
[2024-05-15] MEDS: ASPIRIN 81 MG TAB.CHEW GT (08:08)
[2024-05-15] MEDS: CALCIUM GT (08:08)
[2024-05-15] MEDS: VIT D3 GT (08:08)
[2024-05-15] MEDS: NON-FORMULARY *SEE COMMENTS* 1 EA EA GT (08:09)
[2024-05-15] MEDS: QUETIAPINE FUMARATE 100 MG TABLET GT ×2 (08:09→21:06)
[2024-05-15] MEDS: PIOGLITAZONE 15 MG TABLET GT (08:09)
[2024-05-15] MEDS: ACETAMINOPHEN 325 MG TABLET 650 MG GT (21:07)
--- NOTE | 2024-05-15 22:04 | PD.SAPROG ---
Progress Note - SubAcute DIAGNOSIS (1) CVA, old, aphasia: Status: Chronic (2) Jejunostomy tube present: Status: Chronic (3) Chronic respiratory failure: Status: Chronic (4) Tracheostomy in place: Status: Chronic (5) Ventilator dependent: Status: Chronic (6) Diabetes mellitus type 2 in nonobese: Status: Chronic (7) Dementia: Status: Chronic (8) Hyperlipidemia associated with type 2 diabetes mellitus: Status: Chronic OBJECTIVE Most recent vital signs: Last Vital Signs Temp 98.0 F 05/15/24 17:39 Pulse 90 05/15/24 17:39 Resp 14 05/15/24 17:39 BP 124/69 05/15/24 17:39 Pulse Ox 98 05/15/24 17:39 O2 Del Method Mechanical Ventilation 05/15/24 17:39 FiO2 21 05/15/24 13:12 Neurological:: semi-alert (very forgetful because of Dementia, disoriented mostly in place and person and time and resultant agitation well managed on meds) Speech:: grunts Answers questions:: sometimes ( by gesture) Respiratory:: shallow breathing (ventilator dependent) Cardiovascular: RRR Abdomen: soft and nontender Tracheostomy:: to ventilator Feeding per:: G tube Complaints:: none Reviewed Medical Record:: reviewed labs ASSESSMENT & PLAN Assessment: Pt has multiple organ compromise and remains ventilator dependent for now with G tube feeding and severely handicapped with progressive Dementia and rendering him dependent for all care and bed bound and occasionally in some restraints resultant of agitated behavioral episodes. Hemodynamically stable. Prognosis poor. Pt on Seroquil and closely monitored with intent to titrate to least effective dose. So far well tolerated with infrequent agitation. Tolerating feedings. no pain . Prognostic outlook very limited. Plan: Current treatment reviewed and continued
[2024-05-16] VITALS (8 sets, daily range): BP systolic 121–134; BP diastolic 54–78; PULSE 79–97; RESP 10–25; TEMP 36.1–36.4; O2SAT 95–100
[2024-05-16] MEDS: DEX/HYPRO/GLY ARTIFICAL TEARS 225 DROP/15 ML BTL BOTH EYES ×3 (05:27→22:26)
[2024-05-16] MEDS: QUETIAPINE FUMARATE 100 MG TABLET GT ×2 (08:59→20:35)
[2024-05-16] MEDS: NON-FORMULARY *SEE COMMENTS* 1 EA EA GT (09:00)
[2024-05-16] MEDS: VIT D3 GT (09:00)
[2024-05-16] MEDS: CALCIUM GT (09:00)
[2024-05-16] MEDS: ASPIRIN 81 MG TAB.CHEW GT (09:00)
[2024-05-16] MEDS: PIOGLITAZONE 15 MG TABLET GT (09:04)
[2024-05-16] MEDS: ACETAMINOPHEN 325 MG TABLET 650 MG GT (20:35)
[2024-05-17] VITALS (9 sets, daily range): BP systolic 115–151; BP diastolic 67–82; PULSE 78–94; RESP 20–33; TEMP 36.2–36.7; O2SAT 96–99
[2024-05-17] MEDS: DEX/HYPRO/GLY ARTIFICAL TEARS 225 DROP/15 ML BTL BOTH EYES ×2 (05:39→21:15)
--- NOTE | 2024-05-17 08:27 | PC.NURSE ---
When HOUSEKEEPING ASSOCIATE doing morning care, resident noted with discoloration to right forearm and skin tear below left knee. No bleeding noted. With treatment order received from .
[2024-05-17] MEDS: QUETIAPINE FUMARATE 100 MG TABLET GT ×2 (09:22→21:15)
[2024-05-17] MEDS: NON-FORMULARY *SEE COMMENTS* 1 EA EA GT (09:22)
[2024-05-17] MEDS: CALCIUM GT (09:22)
[2024-05-17] MEDS: VIT D3 GT (09:22)
[2024-05-17] MEDS: ASPIRIN 81 MG TAB.CHEW GT (09:22)
[2024-05-17] MEDS: ACETAMINOPHEN 325 MG TABLET 650 MG GT (09:23)
[2024-05-17] MEDS: PIOGLITAZONE 15 MG TABLET GT (09:23)
--- NOTE | 2024-05-17 18:31 | PD.SAPROG ---
Progress Note - SubAcute DIAGNOSIS (1) CVA, old, aphasia: Status: Chronic (2) Jejunostomy tube present: Status: Chronic (3) Chronic respiratory failure: Status: Chronic (4) Tracheostomy in place: Status: Chronic (5) Ventilator dependent: Status: Chronic (6) Diabetes mellitus type 2 in nonobese: Status: Chronic (7) Dementia: Status: Chronic (8) Hyperlipidemia associated with type 2 diabetes mellitus: Status: Chronic OBJECTIVE Most recent vital signs: Last Vital Signs Temp 97.2 F 05/17/24 17:35 Pulse 85 05/17/24 17:35 Resp 26 H 05/17/24 17:35 BP 151/82 H 05/17/24 17:35 Pulse Ox 99 05/17/24 17:35 O2 Del Method Mechanical Ventilation 05/17/24 17:35 FiO2 21 05/17/24 12:26 Neurological:: semi-alert (very forgetful because of Dementia, disoriented mostly in place and person and time and resultant agitation well managed on meds) Speech:: grunts Answers questions:: sometimes ( by gesture) Respiratory:: shallow breathing (ventilator dependent) Cardiovascular: RRR Abdomen: soft and nontender Tracheostomy:: to ventilator Feeding per:: G tube Complaints:: none Reviewed Medical Record:: reviewed labs ASSESSMENT & PLAN Assessment: Pt has multiple organ compromise and remains ventilator dependent for now with G tube feeding and severely handicapped with progressive Dementia and rendering him dependent for all care and bed bound and occasionally in some restraints resultant of agitated behavioral episodes. Hemodynamically stable. Prognosis poor. Pt on Seroquil and closely monitored with intent to titrate to least effective dose. So far well tolerated with infrequent agitation. Tolerating feedings. no pain . Prognostic outlook very limited. Plan: Current treatment reviewed and continued
[2024-05-17] MEDS: MAGNESIUM HYDROXIDE 30 ML ORAL SUSP ML GT (21:15)
[2024-05-18] VITALS (7 sets, daily range): BP systolic 121–142; BP diastolic 72–80; PULSE 81–100; RESP 20–29; TEMP 36.7–37.1; O2SAT 98–99
[2024-05-18] MEDS: DEX/HYPRO/GLY ARTIFICAL TEARS 225 DROP/15 ML BTL BOTH EYES ×2 (05:17→21:21)
[2024-05-18 07:51] LABS: Basophils % (Auto) 0 % (0-2.5); Eosinophils # (Auto) 0.3 Thou/mm3 (0.0-0.5); Eosinophils % (Auto) 4 % (0-10); Hematocrit 34.5 % (41.0-53.0); Immature Granulocytes % (Auto) 0 % (0-0); Immature Granulocytes Auto 0.02 Thou/mm3 (0.00-0.00); Lymphocytes # (Auto) 1.2 Thou/mm3 (1.0-4.8); Lymphocytes % (Auto) 15 % (10-50); Mean Corpuscular HGB Conc 31.9 g/dl (31.0-37.0); Mean Corpuscular Volume 91 fL (80-100); Monocytes # (Auto) 0.7 Thou/mm3 (0.0-0.8); Monocytes % (Auto) 9 % (0-12); Neutrophils # (Auto) 5.6 Thou/mm3 (1.8-7.7); Neutrophils % (Auto) 72 % (37-80); Nucleated Red Blood Cell % 0 /100 WBC (0); Platelet Count 235 Thou/mm3 (140-440); RDW Standard Deviation 51.8 fL (35.1-43.9); Red Blood Count 3.79 Miln/mm3 (4.50-5.90); White Blood Count 7.7 Thou/mm3 (3.8-10.6)
[2024-05-18] MEDS: NON-FORMULARY *SEE COMMENTS* 1 EA EA GT (08:11)
[2024-05-18] MEDS: ASPIRIN 81 MG TAB.CHEW GT (08:11)
[2024-05-18] MEDS: PIOGLITAZONE 15 MG TABLET GT (08:11)
[2024-05-18] MEDS: QUETIAPINE FUMARATE 100 MG TABLET GT ×2 (08:11→20:37)
[2024-05-18] MEDS: VIT D3 GT (08:11)
[2024-05-18] MEDS: CALCIUM GT (08:11)
[2024-05-18] MEDS: ACETAMINOPHEN 325 MG TABLET 650 MG GT ×2 (08:12→20:37)
[2024-05-18 08:16] LABS: Alanine Aminotransferase 40 U/L (10-49); Albumin, Serum 4.1 gm/dL (3.4-4.8); Albumin/Globulin Ratio 1.5 (1.2-2.2); Alkaline Phosphatase 179 U/L (46-116); Anion Gap 7 (7-16); Aspartate Amino Transferase 39 U/L (0-34); BUN/Creatinine Ratio 30 Ratio (12-20); Bilirubin,Total 0.3 mg/dL (0.3-1.2); Blood Urea Nitrogen 18 mg/dL (9-23); Calcium 9.2 mg/dL (8.3-10.6); Calcium (Corrected) 9.2 mg/dL (8.5-10.1); Carbon Dioxide 31.6 mMol/L (20.0-31.0); Chloride 99 mMol/L (98-107); Creatinine (Component) 0.6 mg/dL (0.6-1.3); Estimated Creatinine Clearance 81.1 mL/min (>60); Globulin 2.7 gm/dL (2.3-3.5); Glucose 78 mg/dL (74-106); Glucose,Fasting 78 mg/dL (74-106); Osmolality,Calculated 276 (275-295); Potassium 4.4 mMol/L (3.4-5.1); Sodium 138 mMol/L (136-145); Total Protein 6.8 gm/dL (5.7-8.2); eGFR > 60 See Note
[2024-05-19] VITALS (8 sets, daily range): BP systolic 126–151; BP diastolic 82–89; PULSE 81–97; RESP 20–28; TEMP 35.9–36.3; O2SAT 97–98
[2024-05-19] MEDS: DEX/HYPRO/GLY ARTIFICAL TEARS 225 DROP/15 ML BTL BOTH EYES ×3 (05:32→22:00)
[2024-05-19] MEDS: ASPIRIN 81 MG TAB.CHEW GT (08:24)
[2024-05-19] MEDS: CALCIUM GT (08:24)
[2024-05-19] MEDS: VIT D3 GT (08:24)
[2024-05-19] MEDS: NON-FORMULARY *SEE COMMENTS* 1 EA EA GT (08:25)
[2024-05-19] MEDS: PIOGLITAZONE 15 MG TABLET GT (08:25)
[2024-05-19] MEDS: ACETAMINOPHEN 325 MG TABLET 650 MG GT (08:25)
[2024-05-19] MEDS: QUETIAPINE FUMARATE 100 MG TABLET GT ×2 (08:25→20:40)
[2024-05-20] VITALS (8 sets, daily range): BP systolic 137–152; BP diastolic 74–91; PULSE 78–96; RESP 20–28; TEMP 36.3–36.6; O2SAT 98–99
[2024-05-20] MEDS: DEX/HYPRO/GLY ARTIFICAL TEARS 225 DROP/15 ML BTL BOTH EYES ×3 (06:07→21:16)
[2024-05-20] MEDS: ASPIRIN 81 MG TAB.CHEW GT (08:39)
[2024-05-20] MEDS: VIT D3 GT (08:39)
[2024-05-20] MEDS: CALCIUM GT (08:39)
[2024-05-20] MEDS: NON-FORMULARY *SEE COMMENTS* 1 EA EA GT (08:40)
[2024-05-20] MEDS: QUETIAPINE FUMARATE 100 MG TABLET GT ×2 (08:41→21:16)
[2024-05-20] MEDS: PIOGLITAZONE 15 MG TABLET GT (08:41)
[2024-05-20] MEDS: BISACODYL 10 MG SUPP.RECT PR (21:16)
[2024-05-20] MEDS: ACETAMINOPHEN 325 MG TABLET 650 MG GT (21:16)
[2024-05-21] VITALS (8 sets, daily range): BP systolic 136–159; BP diastolic 72–80; PULSE 65–97; RESP 18–30; TEMP 36.4–37; O2SAT 98–99
[2024-05-21] MEDS: DEX/HYPRO/GLY ARTIFICAL TEARS 225 DROP/15 ML BTL BOTH EYES ×2 (05:31→21:14)
[2024-05-21] MEDS: ASPIRIN 81 MG TAB.CHEW GT (08:22)
[2024-05-21] MEDS: CALCIUM GT (08:23)
[2024-05-21] MEDS: VIT D3 GT (08:23)
[2024-05-21] MEDS: PIOGLITAZONE 15 MG TABLET GT (08:23)
[2024-05-21] MEDS: QUETIAPINE FUMARATE 100 MG TABLET GT ×2 (08:23→20:37)
[2024-05-21] MEDS: NON-FORMULARY *SEE COMMENTS* 1 EA EA GT (08:23)
--- NOTE | 2024-05-21 12:25 | PD.SAPROG ---
Progress Note - SubAcute DIAGNOSIS (1) CVA, old, aphasia: Status: Chronic (2) Jejunostomy tube present: Status: Chronic (3) Chronic respiratory failure: Status: Chronic (4) Tracheostomy in place: Status: Chronic (5) Ventilator dependent: Status: Chronic (6) Diabetes mellitus type 2 in nonobese: Status: Chronic (7) Dementia: Status: Chronic (8) Hyperlipidemia associated with type 2 diabetes mellitus: Status: Chronic OBJECTIVE Most recent vital signs: Last Vital Signs Temp 98.6 F 05/23/24 17:20 Pulse 102 H 05/23/24 18:25 Resp 24 H 05/23/24 18:25 BP 142/60 H 05/23/24 17:20 Pulse Ox 95 05/23/24 18:25 O2 Del Method Mechanical Ventilation 05/23/24 17:20 FiO2 21 05/23/24 18:25 Neurological:: semi-alert (very forgetful because of Dementia, disoriented mostly in place and person and time and resultant agitation well managed on meds) Speech:: grunts Answers questions:: sometimes ( by gesture) Respiratory:: shallow breathing (ventilator dependent) Cardiovascular: RRR Abdomen: soft and nontender Tracheostomy:: to ventilator Feeding per:: G tube Complaints:: none Reviewed Medical Record:: reviewed labs ASSESSMENT & PLAN Assessment: Pt has multiple organ compromise and remains ventilator dependent for now with G tube feeding and severely handicapped with progressive Dementia and rendering him dependent for all care and bed bound and occasionally in some restraints resultant of agitated behavioral episodes. Hemodynamically stable. Prognosis poor. Pt on Seroquil and closely monitored with intent to titrate to least effective dose. So far well tolerated with infrequent agitation. Tolerating feedings. no pain . Prognostic outlook very limited. Having constipation issues which are being addressed Plan: Current treatment reviewed and continued
[2024-05-21] MEDS: ACETAMINOPHEN 325 MG TABLET 650 MG GT (20:38)
[2024-05-21] MEDS: SENNOSIDES 8.6 MG TABLET GT (22:30)
[2024-05-22] VITALS (8 sets, daily range): BP systolic 125–139; BP diastolic 72–82; PULSE 86–95; RESP 18–27; TEMP 36.5–36.7; O2SAT 96–100
[2024-05-22] MEDS: DEX/HYPRO/GLY ARTIFICAL TEARS 225 DROP/15 ML BTL BOTH EYES ×3 (05:26→21:10)
--- NOTE | 2024-05-22 05:59 | XR_ITS ---
Examination: Abdomen AP single view Technique: AP portable supine abdomen, single view Exam date and time: May 22, 2024 at 0650 hrs. Comparison 02/17/2021 Indications: Abdominal pain and constipation today Findings: Large amounts of stool throughout the entire colon No free air Surgical clips upper right abdomen Gastrostomy tube left abdomen Impression: Very large amounts of stool throughout the entire colon
--- NOTE | 2024-05-22 06:00 | PC.NURSE ---
SNOUT PULLER summoned this nurse to resident room, maroon color blood noted on resident brief, no blood clots noted, abd. soft non-distended, resident has been passing gas, active bowel sounds auscultated to all 4 abd. quad, VS:125/75,97.7,87,22, resident had a medium soft bowel movement earlier in the shift, resident received an enema in day shift for bowel management due to no bowel movement in 3 days, made aware, new order for occult stool test, CBC stat, and abd. x-ray stat to rule out constipation/bowel obstruction, resident in room resting with eyes open, respirations even and unlabored, HOB elevated, no s/s of distress at this time.
[2024-05-22 06:22] LABS: Basophils % (Auto) 1 % (0-2.5); Eosinophils # (Auto) 0.3 Thou/mm3 (0.0-0.5); Eosinophils % (Auto) 4 % (0-10); Hematocrit 32.1 % (41.0-53.0); Hemoglobin 10.2 g/dL (13.5-16.0); Immature Granulocytes % (Auto) 0 % (0-0); Immature Granulocytes Auto 0.02 Thou/mm3 (0.00-0.00); Lymphocytes # (Auto) 1.1 Thou/mm3 (1.0-4.8); Lymphocytes % (Auto) 20 % (10-50); Mean Corpuscular HGB Conc 31.8 g/dl (31.0-37.0); Mean Corpuscular Hemoglobin 29.3 pg (25.0-35.0); Mean Corpuscular Volume 92 fL (80-100); Monocytes # (Auto) 0.6 Thou/mm3 (0.0-0.8); Monocytes % (Auto) 10 % (0-12); Neutrophils # (Auto) 3.7 Thou/mm3 (1.8-7.7); Neutrophils % (Auto) 65 % (37-80); Nucleated Red Blood Cell % 0 /100 WBC (0); Platelet Count 227 Thou/mm3 (140-440); RDW Standard Deviation 51.2 fL (35.1-43.9); Red Blood Count 3.48 Miln/mm3 (4.50-5.90); White Blood Count 5.7 Thou/mm3 (3.8-10.6)
[2024-05-22] MEDS: ASPIRIN 81 MG TAB.CHEW GT (08:10)
[2024-05-22] MEDS: CALCIUM GT (08:11)
[2024-05-22] MEDS: NON-FORMULARY *SEE COMMENTS* 1 EA EA GT (08:11)
[2024-05-22] MEDS: VIT D3 GT (08:11)
[2024-05-22] MEDS: PIOGLITAZONE 15 MG TABLET GT (08:14)
[2024-05-22] MEDS: QUETIAPINE FUMARATE 100 MG TABLET GT ×2 (08:14→20:10)
[2024-05-22] MEDS: SENNOSIDES 8.6 MG TABLET GT ×2 (08:15→20:10)
[2024-05-22] MEDS: BISACODYL 10 MG SUPP.RECT PR ×2 (10:45→20:00)
--- NOTE | 2024-05-22 19:49 | PC.NURSE ---
Report received from charge nurse, order lactulose BID x3 days, re-eval and Bicasodyl supp. Qshift for AM and NOC, RP made aware, resident in room resting with eyes open respirations even and unlabored, call light within reach, HOB elevated no s/s of distress noted at this time.
[2024-05-22] MEDS: LACTULOSE 10 GM/15 ML SOLUTION GT (21:10)
[2024-05-23] VITALS (8 sets, daily range): BP systolic 124–152; BP diastolic 60–82; PULSE 84–102; RESP 10–28; TEMP 36.4–37; O2SAT 95–100
[2024-05-23] MEDS: DEX/HYPRO/GLY ARTIFICAL TEARS 225 DROP/15 ML BTL BOTH EYES ×2 (05:22→21:27)
[2024-05-23] MEDS: QUETIAPINE FUMARATE 100 MG TABLET GT ×2 (08:44→20:41)
[2024-05-23] MEDS: VIT D3 GT (08:45)
[2024-05-23] MEDS: LACTULOSE 10 GM/15 ML SOLUTION GT ×2 (08:45→20:58)
[2024-05-23] MEDS: SENNOSIDES 8.6 MG TABLET GT ×2 (08:45→20:42)
[2024-05-23] MEDS: CALCIUM GT (08:45)
[2024-05-23] MEDS: ASPIRIN 81 MG TAB.CHEW GT (08:45)
[2024-05-23] MEDS: PIOGLITAZONE 15 MG TABLET GT (08:45)
[2024-05-23] MEDS: NON-FORMULARY *SEE COMMENTS* 1 EA EA GT (08:45)
--- NOTE | 2024-05-23 10:36 | PC.SS ---
Room visit: During morning room visit this SSD greeted resident at which time resident raised his right arm. This SSD was talking to resident attempting to relax him, resident continued to throw around his arm like he wanted to strike. Resident finally seemed to settle and relaxed his arm. This SSD spoke with BLACKJACK SUPERVISOR caring for him, she stated she was unable to dress him due to him being combative towards staff during care. This SSD will continue to make contact with resident and will monitor for changes in mood and behavior.
[2024-05-24] VITALS: BP 130/71; PULSE 87; PULSE 88; RESP 20; RESP 24; TEMP 36.9; O2SAT 96
[2024-05-24] MEDS: DEX/HYPRO/GLY ARTIFICAL TEARS 225 DROP/15 ML BTL BOTH EYES (05:04)
[2024-05-24 05:44] VITALS: BP 131/83; PULSE 90; RESP 28; TEMP 37.3; O2SAT 95
[2024-05-24 06:30] VITALS: PULSE 77; RESP 26; O2SAT 99
[2024-05-24] MEDS: ASPIRIN 81 MG TAB.CHEW GT (08:19)
[2024-05-24] MEDS: VIT D3 GT (08:19)
[2024-05-24] MEDS: CALCIUM GT (08:19)
[2024-05-24] MEDS: LACTULOSE 10 GM/15 ML SOLUTION GT (08:20)
[2024-05-24] MEDS: NON-FORMULARY *SEE COMMENTS* 1 EA EA GT (08:20)
[2024-05-24] MEDS: SENNOSIDES 8.6 MG TABLET GT (08:21)
[2024-05-24] MEDS: PIOGLITAZONE 15 MG TABLET GT (08:21)
[2024-05-24] MEDS: QUETIAPINE FUMARATE 100 MG TABLET GT (08:22)
--- NOTE | 2024-05-24 09:28 | PC.NURSE ---
DR MANJARREZ CALLED AND INFORMED PATIENT HAS NOT HAD A BM SINCE 05/21. ABD IS DISTENDED AND FIRM. PATIENT NODS TO BE IN PAIN. REQUESTED LEATHA LIU, GRANTED. IF NOT EFFECTIVE SEND TO ER.
[2024-05-24 12:00] VITALS: BP 154/85; PULSE 76; PULSE 95; RESP 23; RESP 30; TEMP 36.3; O2SAT 99
--- NOTE | 2024-05-24 14:24 | PC.NURSE ---
NO CHANGE IN PATIENTS CONDITION. NO BM. ABD REMAINS DISTENTED AND FIRM. PATIENT GRIMACES IF ABD TOUCHED. PATIENT WILL BE TRANSFERRED TO ER PER DR MANJARREZ'S ORDER.
[2024-05-25] VITALS (8 sets, daily range): BP systolic 127–161; BP diastolic 53–80; PULSE 78–94; RESP 1–26; TEMP 36.2–36.9; O2SAT 95–99
--- NOTE | 2024-05-25 04:31 | PC.NURSE ---
Resident back from ER at 0100 via rodolforcecilia, Vancomycin and Zosyn IV given in ER, with no side effects noted. Resident was given fleets enema in ER with positive results. New order for Augmentin PGT for UTI, orders faxed to [facility]. Transferred to bed, no signs of distress noted, IV to left hand was dc'd, resident denies pain at this time, vitals WNL, call light is within reach.
[2024-05-25] MEDS: DEX/HYPRO/GLY ARTIFICAL TEARS 225 DROP/15 ML BTL BOTH EYES ×3 (06:06→21:23)
--- NOTE | 2024-05-25 06:08 | PC.NURSE ---
Resident back from ER at 0100 via gurney. Resident was given fleets enema in ER with positive results. no c/o pain at this time. vitals within normal limit, call light is within reach.
[2024-05-25] MEDS: ASPIRIN 81 MG TAB.CHEW GT (08:47)
[2024-05-25] MEDS: QUETIAPINE FUMARATE 100 MG TABLET GT ×2 (08:47→21:23)
[2024-05-25] MEDS: SODIUM PHOSPHATE,MONO-DIBASIC 133 ML ENEMA PR (08:48)
[2024-05-25] MEDS: LACTULOSE 10 GM/15 ML SOLUTION GT (08:48)
[2024-05-25] MEDS: CALCIUM GT (08:48)
[2024-05-25] MEDS: VIT D3 GT (08:48)
[2024-05-25] MEDS: SENNOSIDES 8.6 MG TABLET GT ×2 (08:49→21:25)
[2024-05-25] MEDS: NON-FORMULARY *SEE COMMENTS* 1 EA EA GT (08:49)
[2024-05-25] MEDS: PIOGLITAZONE 15 MG TABLET GT (08:49)
--- NOTE | 2024-05-25 13:01 | PC.NURSE ---
Called pharmacy to follow up on resident's antibiotic, medicine will be delivered today at 13:00 run and will be delivered as the priority per [facility].
[2024-05-25] MEDS: polyethylene glycoL PKT 17 GM POWD.PACK GT ×2 (13:39→21:25)
--- NOTE | 2024-05-25 15:45 | PC.NURSE ---
Addendum entered by Millie Mares RN 05/25/24 17:40: Resident's son was here earlier and made aware of the new order. Original Note: Resident's abdomen noted to be more distended compared this morning. Abdominal percussion noted to have full of air. No bowel movement at this time after fleet and miralax were given. No s/s of pain or discomfort noted. Called Dr Rolle and made aware, aware the discharge orders from ER. As per MD , the ER doctor called him around 02:00 this morning and resident had a BM after enema was given. With order received from MD to insert rectal tube and leave it on for 4 hours . [facility]OP COOPER in charge made aware.
[2024-05-25] MEDS: POTASSIUM CLAV GT (15:49)
[2024-05-25] MEDS: AMOXICILLIN GT (15:49)
--- NOTE | 2024-05-25 17:45 | PD.SAPROG ---
Progress Note - SubAcute DIAGNOSIS (1) CVA, old, aphasia: Status: Chronic (2) Jejunostomy tube present: Status: Chronic (3) Chronic respiratory failure: Status: Chronic (4) Tracheostomy in place: Status: Chronic (5) Ventilator dependent: Status: Chronic (6) Diabetes mellitus type 2 in nonobese: Status: Chronic (7) Dementia: Status: Chronic (8) Hyperlipidemia associated with type 2 diabetes mellitus: Status: Chronic OBJECTIVE Most recent vital signs: Last Vital Signs Temp 97.1 F 05/25/24 17:29 Pulse 89 05/25/24 17:29 Resp 24 H 05/25/24 17:29 BP 138/80 H 05/25/24 17:29 Pulse Ox 99 05/25/24 12:50 O2 Del Method Mechanical Ventilation 05/25/24 17:29 FiO2 21 05/25/24 12:50 Neurological:: semi-alert (very forgetful because of Dementia, disoriented mostly in place and person and time and resultant agitation well managed on meds) Speech:: grunts Answers questions:: sometimes ( by gesture) Respiratory:: shallow breathing (ventilator dependent) Cardiovascular: RRR Abdomen: soft and nontender Tracheostomy:: to ventilator Feeding per:: G tube Complaints:: none Reviewed Medical Record:: reviewed labs ASSESSMENT & PLAN Assessment: Pt has multiple organ compromise and remains ventilator dependent for now with G tube feeding and severely handicapped with progressive Dementia and rendering him dependent for all care and bed bound and occasionally in some restraints resultant of agitated behavioral episodes. Hemodynamically stable. Prognosis poor. Pt on Seroquil and closely monitored with intent to titrate to least effective dose. So far well tolerated with infrequent agitation. Tolerating feedings. no pain . Prognostic outlook very limited. Having constipation issues which are being addressed. Sent to ER for abdominal distension from loaded colon. In ER given enema with better results and had a bowel movement and workup also revealed UTI and started on antibiotics and returned back to [facility] and monitored. Plan: Current treatment reviewed and continued
--- NOTE | 2024-05-25 19:09 | PC.NURSE ---
Resident passed gas just once after rectal tube was inserted and didn't help him with the distention.Called Dr hill and made aware with order received to give golytely 200 ml BID x 3 days. Endorse to update MD once golytely received and if bowel movement noted to continue the fleet and miralax
[2024-05-26] VITALS (8 sets, daily range): BP systolic 118–149; BP diastolic 55–86; PULSE 74–113; RESP 23–31; TEMP 36.6–36.9; O2SAT 97–99
[2024-05-26] MEDS: GOLYTELY 200 ML GT ×2 (03:30→08:52)
[2024-05-26] MEDS: AMOXICILLIN GT ×2 (04:35→16:14)
[2024-05-26] MEDS: POTASSIUM CLAV GT ×2 (04:35→16:14)
[2024-05-26] MEDS: DEX/HYPRO/GLY ARTIFICAL TEARS 225 DROP/15 ML BTL BOTH EYES ×3 (05:13→21:01)
[2024-05-26] MEDS: QUETIAPINE FUMARATE 100 MG TABLET GT ×2 (08:51→20:59)
[2024-05-26] MEDS: ASPIRIN 81 MG TAB.CHEW GT (08:52)
[2024-05-26] MEDS: PIOGLITAZONE 15 MG TABLET GT (08:52)
[2024-05-26] MEDS: polyethylene glycoL PKT 17 GM POWD.PACK GT ×2 (08:52→21:00)
[2024-05-26] MEDS: NON-FORMULARY *SEE COMMENTS* 1 EA EA GT (08:52)
[2024-05-26] MEDS: SENNOSIDES 8.6 MG TABLET GT ×2 (08:52→21:00)
[2024-05-26] MEDS: VIT D3 GT (08:52)
[2024-05-26] MEDS: CALCIUM GT (08:52)
[2024-05-26] MEDS: SODIUM PHOSPHATE,MONO-DIBASIC 133 ML ENEMA PR (09:00)
[2024-05-26] MEDS: ACETAMINOPHEN 325 MG TABLET 650 MG GT (17:07)
--- NOTE | 2024-05-26 17:41 | PC.NURSE ---
Called MD regarding resident's abd distention and unable to pass stool. new orders have been followed. Checked resident for impaction none noted. Auscultated bowel sounds all 3 quadrants noted active bowel sound. lleft lower quadrant diminished bowel sounf. zno further orders given MD stated to continue monitoring.
[2024-05-27] VITALS (8 sets, daily range): BP systolic 132–142; BP diastolic 77–89; PULSE 75–108; RESP 23–29; TEMP 36.7–38.2; O2SAT 96–99
[2024-05-27] MEDS: POTASSIUM CLAV GT ×2 (04:00→15:40)
[2024-05-27] MEDS: AMOXICILLIN GT ×2 (04:00→15:40)
[2024-05-27] MEDS: ACETAMINOPHEN 325 MG TABLET 650 MG GT (05:54)
[2024-05-27] MEDS: VIT D3 GT (08:53)
[2024-05-27] MEDS: CALCIUM GT (08:53)
[2024-05-27] MEDS: ASPIRIN 81 MG TAB.CHEW GT (08:53)
[2024-05-27] MEDS: GOLYTELY 200 ML GT ×2 (08:54→21:14)
[2024-05-27] MEDS: SODIUM PHOSPHATE,MONO-DIBASIC 133 ML ENEMA PR (08:54)
[2024-05-27] MEDS: NON-FORMULARY *SEE COMMENTS* 1 EA EA GT (08:55)
[2024-05-27] MEDS: polyethylene glycoL PKT 17 GM POWD.PACK GT ×2 (08:55→21:19)
[2024-05-27] MEDS: PIOGLITAZONE 15 MG TABLET GT (08:55)
[2024-05-27] MEDS: SENNOSIDES 8.6 MG TABLET GT ×2 (08:56→21:20)
[2024-05-27] MEDS: QUETIAPINE FUMARATE 100 MG TABLET GT ×2 (08:56→21:20)
[2024-05-27] MEDS: DEX/HYPRO/GLY ARTIFICAL TEARS 225 DROP/15 ML BTL BOTH EYES ×2 (14:32→21:09)
--- NOTE | 2024-05-27 16:43 | PC.NURSE ---
order to consult Dr. isaac order was carried out, and Dr. isaac made aware and he will come tonight.
--- NOTE | 2024-05-27 21:02 | PD.IMCONS ---
HPI Data of Consult Requesting Physician: Juan Rolle MD Primary Care Provider: Juan Rolle MD Consult Narrative Reason for consult: Abdominal distention, abnormal CTAP History of present illness: 73 years old male who has chronic respiratory failure status post tracheostomy and ventilator dependent who is also status postplacement of a PEG tube/jejunostomy tube I been consulted for abdominal distention CT scan of the chest abdomen pelvis done in the emergency room on 05/24/2024 showed moderate stool burden throughout the colon Patient had been getting 200 cc of GoLytely every shift He did have a large bowel movement in the ER I been consulted He has a history of dementia essential hypertension cc:: cc: Juan Rolle MD Review of Systems Review of Systems ROS Unobtainable: unobtainable due to medical condition Past Medical History Surgical History OTHER SURGICAL HX: As in the history of present illness Meds Home Medications and Allergies Home Medications ?Medication ?Instructions ?Recorded ?Confirmed ?Type labetalol 100 mg tablet 100 mg feeding tube BID 11/06/19 02/22/21 History Allergies Allergy/AdvReac Type Severity Reaction Status Date / Time No Known Allergies Allergy Verified 02/05/20 14:36 Exam Vital Signs Temp Pulse Resp BP Pulse Ox O2 Del Method FiO2 98.6 F 98 23 H 140/83 H 97 Mechanical Ventilation 05/27/24 17:13 05/27/24 17:13 05/27/24 17:13 05/27/24 17:13 05/27/24 17:13 05/27/24 17:13 05/27/24 13:02 Constitutional Comments: Chronically ill-appearing Routine Respiratory Exam Comments: Ventilator through tracheostomy Routine Abdominal Exam Comments: Distended abdomen with positive bowel sounds Results Labs 05/22/24 06:11 05/18/24 06:35 ABG Interpretation ABG results: 03/28/24 10:58 ABG pH 7.41 ABG pCO2 47 ABG pO2 46 L* ABG HCO3 30 H ABG O2 Saturation 80 L ABG Base Excess 5 H Assessment and Plan Additional Assessment & Plan Additional Plan: # Stool impaction leading to abdominal distention Suggestions Hold the PEG feeding GoLytely at 200 cc an hour If the abdominal distention gets too much hold of the GoLytely at that time and then started back again Continue Fleet enemas Will follow the patient Thank you very much for the opportunity to participate in the care of this patient Other medical problems include # Chronic respiratory failure status post tracheostomy and ventilator dependent # Essential hypertension # Dementia
--- NOTE | 2024-05-27 21:37 | PC.NURSE ---
Dr Durant here to see resident regarding resident being constipated. New order to hold tube feeding until resident has BM, may restart once BM has returned to normal or if resident's abdomen becomes distended. New order to change Golytely to 200ml every hour until resident has BM.
[2024-05-28] VITALS (8 sets, daily range): BP systolic 117–143; BP diastolic 60–92; PULSE 82–101; RESP 21–32; TEMP 36.4–36.9; O2SAT 97–99
[2024-05-28] MEDS: POTASSIUM CLAV GT ×2 (04:12→16:30)
[2024-05-28] MEDS: AMOXICILLIN GT ×2 (04:12→16:30)
[2024-05-28] MEDS: DEX/HYPRO/GLY ARTIFICAL TEARS 225 DROP/15 ML BTL BOTH EYES ×3 (05:18→21:13)
[2024-05-28] MEDS: CALCIUM GT (08:18)
[2024-05-28] MEDS: VIT D3 GT (08:18)
[2024-05-28] MEDS: ASPIRIN 81 MG TAB.CHEW GT (08:18)
[2024-05-28] MEDS: NON-FORMULARY *SEE COMMENTS* 1 EA EA GT (08:19)
[2024-05-28] MEDS: polyethylene glycoL PKT 17 GM POWD.PACK GT ×2 (08:19→20:49)
[2024-05-28] MEDS: SENNOSIDES 8.6 MG TABLET GT ×2 (08:20→20:49)
[2024-05-28] MEDS: PIOGLITAZONE 15 MG TABLET GT (08:20)
[2024-05-28] MEDS: QUETIAPINE FUMARATE 100 MG TABLET GT ×2 (08:20→20:49)
[2024-05-28] MEDS: SODIUM PHOSPHATE,MONO-DIBASIC 133 ML ENEMA PR (10:30)
--- NOTE | 2024-05-28 17:42 | PC.NURSE ---
Around 9am called Dr. Isaac noticed resident abdomen was more distended, and swelling to the lower extremities was noted and scrotum, Dr. isaac order to hold the golytely and give fleet enema x1, then called Dr. isaac after 4 hrs resident didnt have BM yet, and Dr. Isaac order to resume the golytely 100ml every hr x 6 hrs, around 4;30 pm, called Dr. Isaac and made aware resident still didnt go, and Dr. isaac said just continue to hold the feeding continue the golytely and he will come tonight to check the resident, resident v/s stable we will continue to monitor.
[2024-05-29] VITALS: BP 147/72; PULSE 102; RESP 31; TEMP 37
[2024-05-29 00:18] VITALS: PULSE 79; RESP 30; O2SAT 99
--- NOTE | 2024-05-29 02:50 | PC.NURSE ---
Dr Durant here to see resident, rectal exam performed with digital stimulation, orders to continue with Golytely 200 ml every hour and continue holding tube feeding at this time, update MD in the morning if no BM.
[2024-05-29] MEDS: POTASSIUM CLAV GT (04:15)
[2024-05-29] MEDS: AMOXICILLIN GT (04:15)
--- NOTE | 2024-05-29 05:23 | PC.NURSE ---
Resident sent to ER at 0450 via bed accompanied by RT, charge nurse and [employer]. Resident seen by Dr Durant last night with instructions to continue Golytely 200ml every hour for constipation. Resident's abdomen continued to increase in distention, firm to touch, unable to remove air from GT or aspirate contents, minimal bowel sounds noted, during turning resident's face purple, difficulty breathing noted, returned to sitting position, maintains adequate ventilation and saturation on ventilator. Scrotum and penis edema has increased throughout the night, edema noted to bilateral upper thighs, mottling noted to bilateral lower extremities. BP 137/68, HR 107, T 98.7, 96% on ventilator and BS 130. Resident nods head yes when asked if he was in pain. Attempted to call Dr Durant for further instructions with no answer, decision to send resident to ER for further evaluation.
--- NOTE | 2024-05-29 09:14 | PD.SAPROG ---
Progress Note - SubAcute DIAGNOSIS (1) CVA, old, aphasia: Status: Chronic (2) Jejunostomy tube present: Status: Chronic (3) Chronic respiratory failure: Status: Chronic (4) Tracheostomy in place: Status: Chronic (5) Ventilator dependent: Status: Chronic (6) Diabetes mellitus type 2 in nonobese: Status: Chronic (7) Dementia: Status: Chronic (8) Hyperlipidemia associated with type 2 diabetes mellitus: Status: Chronic OBJECTIVE Most recent vital signs: Last Vital Signs Temp 98.6 F 05/29/24 00:00 Pulse 79 05/29/24 00:18 Resp 31 H 05/29/24 00:00 BP 147/72 H 05/29/24 00:00 Pulse Ox 99 05/29/24 00:18 O2 Del Method Mechanical Ventilation 05/28/24 17:46 FiO2 21 05/29/24 00:18 Neurological:: semi-alert (very forgetful because of Dementia, disoriented mostly in place and person and time and resultant agitation well managed on meds) Speech:: grunts Answers questions:: sometimes ( by gesture) Respiratory:: shallow breathing (ventilator dependent) Cardiovascular: RRR Abdomen: soft and nontender Tracheostomy:: to ventilator Feeding per:: G tube Complaints:: none Reviewed Medical Record:: reviewed labs ASSESSMENT & PLAN Assessment: Pt has multiple organ compromise and remains ventilator dependent for now with G tube feeding and severely handicapped with progressive Dementia and rendering him dependent for all care and bed bound and occasionally in some restraints resultant of agitated behavioral episodes. Hemodynamically stable. Prognosis poor. Pt on Seroquil and closely monitored with intent to titrate to least effective dose. So far well tolerated with infrequent agitation. Tolerating feedings. no pain . Prognostic outlook very limited. Having constipation issues which are being addressed. Sent to ER for abdominal distension from loaded colon. In ER given enema with better results and had a bowel movement and workup also revealed UTI and started on antibiotics and returned back to [facility] and monitored. Constipation issues persist and G I consult addressing the issue . Plan: Current treatment reviewed and continued
--- NOTE | 2024-06-02 20:02 | PD.IMPROG ---
Documentation for date of: 06/02/24 Subjective Subjective Interval history: Colon is quite clear from the stool burden Patient in atrial fibrillation with RVR Internal medicine team is managing it No need for any invasive GI workup Exam Vital Signs Temp Pulse Resp BP Pulse Ox O2 Del Method FiO2 98.6 F 79 31 H 147/72 H 99 Mechanical Ventilation 21 05/29/24 00:00 05/29/24 00:18 05/29/24 00:00 05/29/24 00:00 05/29/24 00:18 05/28/24 17:46 05/29/24 00:18 Objective Labs 05/22/24 06:11 05/18/24 06:35 Impressions Impression: # Stool impaction Patient has done very well with GoLytely through the PEG tube No need for any colonoscopy ABG Interpretation ABG results: 03/28/24 10:58 ABG pH 7.41 ABG pCO2 47 ABG pO2 46 L* ABG HCO3 30 H ABG O2 Saturation 80 L ABG Base Excess 5 H Assessment & Plan A&P Narrative # Stool impaction leading to abdominal distention Suggestions Hold the PEG feeding GoLytely at 200 cc an hour If the abdominal distention gets too much hold of the GoLytely at that time and then started back again Continue Fleet enemas Will follow the patient Thank you very much for the opportunity to participate in the care of this patient Other medical problems include # Chronic respiratory failure status post tracheostomy and ventilator dependent # Essential hypertension # Dementia Time Spent With Patient Time: Total time spent is greater than 50% in coordination of care (as documented) at patient's floor/unit and/or counseling patient:
--- NOTE | 2024-06-03 21:36 | PD.IMPROG ---
Documentation for date of: 06/03/24 Subjective Subjective Interval history: Patient on vasopressors Long meeting by the internal medicine team with the family and then agreed for comfort care pending some family members resting the patient Exam Vital Signs Temp Pulse Resp BP Pulse Ox O2 Del Method FiO2 98.6 F 79 31 H 147/72 H 99 Mechanical Ventilation 21 05/29/24 00:00 05/29/24 00:18 05/29/24 00:00 05/29/24 00:00 05/29/24 00:18 05/28/24 17:46 05/29/24 00:18 Objective Labs 05/22/24 06:11 05/18/24 06:35 Impressions Impression: # Resolved stool impaction and colonic obstruction # Multiple critical other medical problems with new onset atrial fibrillation # Hypotension on pressors Continue supportive care ABG Interpretation ABG results: 03/28/24 10:58 ABG pH 7.41 ABG pCO2 47 ABG pO2 46 L* ABG HCO3 30 H ABG O2 Saturation 80 L ABG Base Excess 5 H Assessment & Plan A&P Narrative # Stool impaction leading to abdominal distention Suggestions Hold the PEG feeding GoLytely at 200 cc an hour If the abdominal distention gets too much hold of the GoLytely at that time and then started back again Continue Fleet enemas Will follow the patient Thank you very much for the opportunity to participate in the care of this patient Other medical problems include # Chronic respiratory failure status post tracheostomy and ventilator dependent # Essential hypertension # Dementia Time Spent With Patient Time: Total time spent is greater than 50% in coordination of care (as documented) at patient's floor/unit and/or counseling patient:
--- NOTE | 2024-06-04 15:21 | PC.SS ---
Patient came in to speak to this SSD and YURIY, she was seen shaking and emotional. She stated patient has been upstairs and was asked to stay the night with him last night because he was not expected to make it through the night. She stated she has not had good rest as she has been nervous and sad to be told he is not getting any better. She stated she and her children are feeling pressured to make a decision for end of life. She was tearful saying she could not allow anyone to take him off the ventilator, she feels his heart will stop when god is ready to take him She is asking to be given more time with her and not be bothered to make decisions she and her children do not agree with. YURIY spoke with her about the possibility of bringing resident down on comfort measures, she said she would agree to it as he has his room here and might be more comfortable for them to be with him. She was informed about comfort care and being only treated in [facility] and not being transferred out. She was told there would be no CPR if his heart stops as she agreed yes to no CPR if he comes back to [facility]. She asked if he would still be seen by a doctor, she was told yes. She said she would agree with that plan, she asked if she could bring her grown children in to speak more about this plan. YURIY informed her her children could come in if they wanted more information. YURIY stated she would call patient experience to inform of technical service representative coming down and her current feelings.
== END 2024-06-05 00:01 | disposition admitted as inpatient to this hospital (09) | DRG 207 ==
PROVIDERS: Admitting Provider Specialist; PCP Specialist; Visit Provider Specialist
DX: J96.10 Chronic respiratory failure, unspecified whether with hypoxia or hypercapnia (principal); Z99.11 Dependence on respirator [ventilator] status; F03.911 Unspecified dementia, unspecified severity, with agitation; N39.0 Urinary tract infection, site not specified; I69.320 Aphasia following cerebral infarction; E11.69 Type 2 diabetes mellitus with other specified complication; E78.5 Hyperlipidemia, unspecified; Z86.718 Personal history of other venous thrombosis and embolism; Z93.0 Tracheostomy status; Z93.4 Other artificial openings of gastrointestinal tract status; Z78.1 Physical restraint status; I48.91 Unspecified atrial fibrillation; K56.41 Fecal impaction
CPT/HCPCS: 36415; 36600; 74018; 80053; 80076; 82803; 82947; 83036; 85014; 85018; 85025; 87077; 87186; 87205; 92523; 94002; 94004; 94640; 94762

== ENCOUNTER 2024-05-24 15:07 | Emergency (ER) | payer MEDICARE, MEDICAID, SELFPAY ==
[2024-05-24] VITALS (9 sets, daily range): BP systolic 122–147; BP diastolic 66–91; PULSE 89–110; RESP 15–99; TEMP 37–38.1; O2SAT 9–100
[2024-05-24 16:10] LABS: Basophils % (Auto) 0 % (0-2.5); Eosinophils % (Auto) 0 % (0-10); Hematocrit 36.1 % (41.0-53.0); Hemoglobin 11.5 g/dL (13.5-16.0); Immature Granulocytes % (Auto) 0 % (0-0); Immature Granulocytes Auto 0.05 Thou/mm3 (0.00-0.00); Lymphocytes # (Auto) 1.2 Thou/mm3 (1.0-4.8); Lymphocytes % (Auto) 10 % (10-50); Mean Corpuscular HGB Conc 31.9 g/dl (31.0-37.0); Mean Corpuscular Hemoglobin 29.2 pg (25.0-35.0); Mean Corpuscular Volume 92 fL (80-100); Monocytes # (Auto) 1.2 Thou/mm3 (0.0-0.8); Monocytes % (Auto) 10 % (0-12); Neutrophils # (Auto) 9.5 Thou/mm3 (1.8-7.7); Neutrophils % (Auto) 79 % (37-80); Nucleated Red Blood Cell % 0 /100 WBC (0); Platelet Count 241 Thou/mm3 (140-440); RDW Standard Deviation 53.4 fL (35.1-43.9); Red Blood Count 3.94 Miln/mm3 (4.50-5.90); White Blood Count 12.1 Thou/mm3 (3.8-10.6)
--- NOTE | 2024-05-24 16:14 | EDNOTE_ITS ---
ED Abdominal Pain RME/HPI General Chief Complaint: Abdominal Pain Stated complaint: ABDOMINAL PAIN Time seen by provider: 05/24/24 15:16 Arrival date/time: 05/24/24 15:07 Limitations: no limitations RME / HPI RME / HPI narrative: 73 year old male with history of CVA, dementia, chronic respiratory failure, s/p tracheostomy with ventilator dependance, s/p G-tube placement, diabetes, hyperlipidemia presents to the ED brought in from the subacute unit within this facility for concerns of abdominal distention and rigidity. Reportedly nursing staff at subacute report patient last had a bowel movement ~ 4 days ago and concerned there may be an obstruction. No further history obtainable due to medical condition. Related Data Home Medications ?Medication ?Instructions ?Recorded ?Confirmed labetalol 100 mg tablet 100 mg feeding tube BID 11/06/19 02/22/21 Previous Rx's ?Medication ?Instructions ?Recorded acetaminophen 325 mg/10.15 mL oral 650 mg (20.3 mL) PO Q6HR PRN Fever 03/09/21 solution >101 #0 mL albuterol sulfate 2.5 mg/0.5 mL 2.5 mg (0.5 mL) INH Q4HRRT PRN 03/09/21 solution for nebulization Wheezing #0 ea apixaban 2.5 mg tablet (Eliquis) 5 mg (2 x 2.5 mg) PO BID #0 tabs 03/09/21 diltiazem HCl 120 mg 120 mg PO QDAY #0 caps 03/09/21 capsule,extended release 24 hr guaifenesin 100 mg/5 mL oral liquid 200 mg (10 mL) G-tube QID PRN 03/09/21 Cough #0 mL hydralazine 10 mg tablet 10 mg G-tube Q6HR PRN HYPERTENSION 03/09/21 #0 tabs insulin glargine 100 unit/mL 6 unit (0.06 mL) subcut BID #0 mL 03/09/21 subcutaneous solution (Lantus U-100 Insulin) insulin lispro 100 unit/mL 0 unit (0 mL) subcut Q6HR #0 mL 03/09/21 subcutaneous solution (Humalog U-100 Insulin) lansoprazole 30 mg delayed 30 mg PO QDAY #0 tabs 03/09/21 release,disintegrating tablet (Prevacid SoluTab) quetiapine 25 mg tablet 50 mg (2 x 25 mg) PO BID #0 tabs 03/09/21 amoxicillin 400 mg-potassium 10 ml feeding tube BID 10 days 05/25/24 clavulanate 57 mg/5 mL oral #200 mL suspension Allergies Allergy/AdvReac Type Severity Reaction Status Date / Time No Known Allergies Allergy Verified 02/05/20 14:36 Review of Systems Review of Systems ROS Unobtainable: unobtainable due to medical condition Past Medical History Past Medical History NEUROLOGIC: Positive Neurological Disorders, Cerebrovascular Accident and D ementia CARDIAC: Positive Hypercholesterolemia and Hypertension RESPIRATORY: Positive Pneumonia GENITOURINARY: Positive Benign Prostatic Hyperplasia MUSCULOSKELETAL: Positive Musculoskeletal Disorders ENDOCRINE: Positive Endocrine Disorders PSYCHO/SOCIAL: Positive Behavior Problems Surgical History SURGICAL: Positive Abdominal Surgery and Gastrostomy Social History SMOKING STATUS: Unknown if ever smoked SECOND HAND EXPOSURE: No SUBSTANCE USE: does not use ED Exam General Limitations: Present no limitations General appearance: Present other (Contracted, nonverbal ) Head Head exam: Present atraumatic Eye Eye exam: Present other (Left eye damon out ) ENT ENT exam: Present normal exam and normal oropharynx Neck Neck exam: Present trachea midline and other (tracheostomy noted) Chest Chest inspection: Present normal inspection and symmetric chest wall rise Respiratory Respiratory exam: Present other (Rales and rhonchi in bilateral lung ansari ) Cardiovascular Cardiovascular exam: Present tachycardia and normal heart sounds Abdominal Exam Abdominal exam: Present other (Abdominal distention with abdominal tympany in all quadrants) Extremities Exam Extremities exam: Present other (Left hemiparalysis, contracted ) Neurological Exam Neurological exam: Present other (Responds to touch only with random purposeless movements) Psychiatric Psychiatric exam: Present normal affect and normal mood Skin Skin exam: Present warm, dry, intact and normal color Course Course Course Narrative: 1800: Care signed out to Dr. Grigsby. Results and treatment plan discussed. They will assume the care of the patient at this time, pending UA and final disposition. Quality Measures Current suspected stage: sepsis Possible source: unknown Blood cultures ordered: completed in ED Antibiotic ordered: Yes Pertinent labs: 05/24/24 05/24/24 16:00 17:10 Lactic Acid 0.7 mMol/L (0.4-2.0) Procalcitonin 0.09 ng/ml (0.0-0.49) sepsis Orders Category Date Time Status Bladder Scan NEEDED Care 05/24/24 19:[address] Screening NOW Care 05/24/24 18:14 Completed Flatwork Washer STAT Care 05/24/24 15:36 Completed Continuous Pulse Oximetry STAT Care 05/24/24 15:37 Completed EKG (ED ONLY) *Do not use* NOW Care 05/24/24 16:42 Completed Enema Administration NOW Care 05/24/24 15:36 Completed Fleet [Enema Administration] NOW Care 05/24/24 15:38 Completed Insert IV STAT Care 05/24/24 15:36 Completed NPO STAT Care 05/24/24 15:36 Completed Strict Intake and Output Routine Care 05/24/24 16:[address] chest abdomen pelvis w Stat Exams 05/24/24 18:13 Completed EKG (ED Only) Stat Exams 05/24/24 16:42 Draft XR chest 1V portable Stat Exams 05/24/24 16:45 Completed Blood Culture (Lab) Stat Lab 05/24/24 17:10 Received CBC Stat Lab 05/24/24 16:00 Completed Comprehensive Metabolic Panel Stat Lab 05/24/24 16:00 Completed LDH (Lactate Dehydrogenase) Stat Lab 05/24/24 16:00 Completed Lactate (Lactic Acid) Stat Lab 05/24/24 17:10 Completed Magnesium Stat Lab 05/24/24 16:00 Completed Phosphorous Stat Lab 05/24/24 16:00 Completed Procalcitonin Stat Lab 05/24/24 16:00 Completed Urinalysis Stat Lab 05/24/24 21:23 Completed Urine Culture Stat Lab 05/24/24 21:23 Received Piper/Tazo Inj [Zosyn Inj] 3.375 gm Med 05/24/24 16:46 Discontinued Sodium Chloride 0.9% (P) [Ns 0.9% (P)] 50 ml IV X1 Sodium Chloride 0.9% 1000 ml [Ns] 1,000 ml Med 05/24/24 15:35 Discontinued IV 999 mls/hr Vancomycin Pharmacy to Dose Med 05/24/24 17:00 Discontinued 1 each IV QDAY PRN Vancomycin/Ns 1 gm Ivpb 200 ml Med 05/24/24 17:00 Discontinued IV X1 Oxygen Delivery NOW RT 05/24/24 16:42 Completed Vital Signs Vital signs: Vital Signs Temperature 98.7 F 05/24/24 15:09 Pulse Rate 95 05/24/24 15:09 Respiratory Rate 26 H 05/24/24 15:09 Blood Pressure 133/76 H 05/24/24 15:09 Pulse Oximetry (%) 97 05/24/24 15:09 Oxygen Delivery Method Mechanical Ventilation 05/24/24 15:09 Pulse ox is 97% on mechanical ventillator which is adequate. Abdominal Pain MDM MDM Narrative MDM Narrative:: Piper Haas am scribing for and in the presence of Dr. Nicholas. Patient data External records reviewed:: [facility] previous records (I reviewed Dr. Rolle's progress note from 05/21/2024) Clinical information provided by:: other (specify) (RN ) Social determinants that could affect healthcare access:: housing (Subacute resident ) Patient has the following chronic illnesses:: CVA, dementia, chronic respiratory failure, s/p tracheostomy with ventilator dependance, s/p G-tube placement, diabetes, hyperlipidemia How is presenting disease/condition affected by chronic disease/condition?: exacerbated by Evaluation data The following diagnostics were reviewed and interpreted by me:: lab results and EKG tracing(s) (Sinus tachycardia, rate 105, left axis deviation ) Lab and/or radiology exams considered but not ordered:: None Interpretation Summary: Ordering Physician: Jose Nicholas MD Date of Service: 05/24/24 Procedure(s): XR chest 1V portable Accession Number(s): [id number] cc: Roberth Banks MD; Jose Nicholas MD~ Examination: AP chest Technique: AP portable semiupright chest single view Exam date and time: May 24, 2024 1727 hrs. Comparison 02/24/2021 Indications: Onset shortness of breath today. Findings: Normal heart size Mild to moderate right hemidiaphragm Subsegmental atelectasis right base Tracheostomy tube tip 6.4 cm above delmy Mild vascular congestion No lobar pneumonia Impression: Mild vascular congestion No lobar pneumonia Dictated By: Roberth Banks MD Signed By: <Electronically signed by Roberth Banks MD in OV> 05/24/24 1756 Medications / Prescriptions Medications or Prescriptions considered but not ordered:: None Medication administrations:: Medication Administration History Discontinued Medications Sodium Chloride (Ns) 1,000 mls @ 999 mls/hr IV .Q1H1M ONE Stop: 05/24/24 16:35 Last Infusion: 05/24/24 18:21 Dose: Infused Documented By: Admin: 05/24/24 16:36 Dose: 999 mls/hr Documented By: TM Piperacillin Sod/Tazobactam (Sod 3.375 gm/ Sodium Chloride) 50 mls @ 100 mls/hr IV X1 ONE Stop: 05/24/24 17:15 Last Infusion: 05/24/24 18:21 Dose: Infused Documented By: Admin: 05/24/24 17:45 Dose: 100 mls/hr Documented By: ED Vancomycin/Sodium Chloride (Vancomycin/Ns 1 Gm Ivpb) 200 mls @ 120 mls/hr IV X1 ONE Stop: 05/24/24 18:39 Last Infusion: 05/24/24 23:04 Dose: Infused Documented By: Admin: 05/24/24 21:06 Dose: 120 mls/hr Documented By: TC Pharmacy Consult (Vancomycin Pharmacy To Dose 1 Each Each) 1 each IV QDAY PRN PRN Reason: PROTOCOL Stop: 06/23/24 16:59 See above Consultations Consultation(s) initiated? (list below): No Diagnosis Differential diagnosis abdominal pain: abdominal pain, constipation, diverticulitis, gastroenteritis and small bowel obstruction Most likely diagnosis given after review of the tests above:: Abdominal distention Admission Indicated Admission indicated?: not indicated Explain why admission is indicated or not indicated:: Patient signed out pending remainder of labs and final disposition. Admission Request Was there a request for admission?: No Disposition Plan Disposition Plan: other (specify) (Signed out to Dr. Grigsby ) Discharge Plan Plan Patient Disposition: Xfer [facility] Acute w/in Hosp Patient condition on transfer: Stable Prescriptions/Referrals Prescriptions/Med Rec: New amoxicillin-pot clavulanate 400-57 mg/5 mL suspension for reconstitution 10 ml feeding tube BID 10 Days Qty: 200 0RF No Action labetalol 100 mg Tablet 100 mg feeding tube BID Rx Instructions: hold if SBP <120 or DBP <60 or pulse <60 Eliquis 2.5 mg Tablet 5 mg PO BID Qty: 0 0RF Lantus U-100 Insulin 100 unit/mL Solution 6 unit subcut BID Qty: 0 0RF diltiazem HCl 120 mg Capsule,Extended Release 24hr 120 mg PO QDAY Qty: 0 0RF hydralazine 10 mg Tablet 10 mg G-tube Q6HR PRN (Reason: HYPERTENSION) Qty: 0 0RF guaifenesin 100 mg/5 mL Liquid 200 mg G-tube QID PRN (Reason: Cough) Qty: 0 0RF lansoprazole [Prevacid SoluTab] 30 mg Tablet,Disintegrat, Delay Rel 30 mg PO QDAY Qty: 0 0RF insulin lispro [Humalog U-100 Insulin] 100 unit/mL Solution 0 unit subcut Q6HR Qty: 0 0RF quetiapine 25 mg Tablet 50 mg PO BID Qty: 0 0RF albuterol sulfate 2.5 mg/0.5 mL Solution For Nebulization 2.5 mg INH Q4HRRT PRN (Reason: Wheezing) Qty: 0 0RF acetaminophen 325 mg/10.15 mL Solution 650 mg PO Q6HR PRN (Reason: Fever >101) Qty: 0 0RF Referrals: No Primary/Family,Physician [Primary Care Provider] - In 1 week Problem List Clinical Impression: Acute UTI, Constipation Patient/Caregiver Discharge Instructions Education Materials: Urinary Tract Infections in Men, ED Constipation (Adult) Additional Instructions: The patient had a large bowel movement here after he had a fleets enema. Please continue the Fleet enema once a day for the next 2 to 3 days to help with his bowel movement. Start MiraLAX 17 g in 8 ounces of water via G-tube twice a day for the next 1 week and then once a day for 1 week to help with bowel movements. Print Language: Czech
[2024-05-24 16:28] LABS: Alanine Aminotransferase 30 U/L (10-49); Albumin, Serum 4.8 gm/dL (3.4-4.8); Albumin/Globulin Ratio 1.4 (1.2-2.2); Alkaline Phosphatase 186 U/L (46-116); Anion Gap 8 (7-16); Aspartate Amino Transferase 35 U/L (0-34); BUN/Creatinine Ratio 24 Ratio (12-20); Bilirubin,Total 0.3 mg/dL (0.3-1.2); Blood Urea Nitrogen 19 mg/dL (9-23); Calcium 10.2 mg/dL (8.3-10.6); Calcium (Corrected) 10.2 mg/dL (8.5-10.1); Carbon Dioxide 34.6 mMol/L (20.0-31.0); Chloride 94 mMol/L (98-107); Creatinine (Component) 0.8 mg/dL (0.6-1.3); Globulin 3.4 gm/dL (2.3-3.5); Glucose 112 mg/dL (74-106); Magnesium 2.3 mg/dL (1.6-2.6); Osmolality,Calculated 277 (275-295); Potassium 3.8 mMol/L (3.4-5.1); Sodium 137 mMol/L (136-145); Total Protein 8.2 gm/dL (5.7-8.2); eGFR > 60 See Note
[2024-05-24] MEDS: SODIUM CHLORIDE 0.9% 1000 ML 1,000 ML 999 ML IV (16:36)
--- NOTE | 2024-05-24 16:39 | PC.NURSE ---
small amount of soft stool in brief when rolled over for enema. sepsis alert called due to pts temp, HR and BP at this time
--- NOTE | 2024-05-24 16:42 | EKG_ITS ---
[facility] Test Date: 2024-05-24 Pat Name: MARTHA ANDUJAR Department: Room: - Gender: Male [employer]: : 1950 Requested By: Jose Summers Order Number: [id number] Reading MD: Jose Summers Measurements Intervals [place] Rate: 105 P: 21 AK: 160 QRS: -23 QRSD: 89 T: 32 QT: 317 QTc: 420 Interpretive Statements SINUS TACHYCARDIA BORDERLINE LEFT AXIS DEVIATION [QRS AXIS < -20] NONSPECIFIC T-WAVE ABNORMALITY ABNORMAL RHYTHM ECG No previous ECG available for comparison /[id number]/[email or web address]/[id number].pdf
--- NOTE | 2024-05-24 16:45 | XR_ITS ---
Examination: AP chest Technique: AP portable semiupright chest single view Exam date and time: May 24, 2024 1727 hrs. Comparison 02/24/2021 Indications: Onset shortness of breath today. Findings: Normal heart size Mild to moderate right hemidiaphragm Subsegmental atelectasis right base Tracheostomy tube tip 6.4 cm above delmy Mild vascular congestion No lobar pneumonia Impression: Mild vascular congestion No lobar pneumonia
[2024-05-24 17:15] LABS: Lactate (Lactic Acid) 0.7 mMol/L (0.4-2.0)
[2024-05-24 17:22] LABS: LDH (Lactate Dehydrogenase) 182 U/L (120-246); Phosphorous 3.1 mg/dL (2.4-5.1); Procalcitonin 0.09 ng/ml (0.0-0.49)
[2024-05-24] MEDS: PIPER/TAZO INJ 3.375 GM in SODIUM CHLORIDE 0.9% (P) 50 ML IV (17:45)
--- NOTE | 2024-05-24 18:13 | XR_ITS ---
Examination: CT chest with intravenous contrast CT abdomen with intravenous contrast CT pelvis with intravenous contrast 2-D coronal and sagittal reconstructions Time of exam: June 03, 2024 1916 hrs. Indications: Sepsis abdominal distention abdominal pain today CTDI: vol (mGy) : 17.2 DLP: (mGycm): 1301 Technique: Multiple axial images of the chest, abdomen and pelvis with intravenous contrast, 3.0 mm slice thickness. Images obtained post intravenous injection Isovue 370 60 cc. 2-D sagittal and coronal reconstructions. Low dose protocols were performed. One or more of the following dose reduction techniques were used; automated exposure control, adjustment of the mA and/or KV according to patient size, use of iterative reconstruction technique. Findings: Tracheal tube tip 6 cm above delmy No thoracic aortic aneurysm dilatation Pulmonary artery segments are not enlarged Mild right hilar lymphadenopathy Mild vascular congestion Pneumonia right base Mild bilateral pleural fluid No visualized liver or splenic lesion Absent gallbladder Atrophic pancreas Normal adrenal glands Mild right hydronephrosis Aorta normal size Very large amounts of stool in the descending colon and rectosigmoid with thickening of the rectal wall Right inguinal hernia containing a portion of the bladder Fat-containing left inguinal hernia Prominent osteopenia Impression: Right base pneumonia Mild right hydronephrosis, no ureteral calculi Very large amounts of stool in the descending colon and rectosigmoid with proctitis pattern Right inguinal hernia containing a portion of the urinary bladder
--- NOTE | 2024-05-24 18:17 | PC.NURSE ---
pt does not have iv access, previous line infiltrated.
--- NOTE | 2024-05-24 18:29 | PD.EDADDENDU ---
Emergency Room Addendum <Naz Arreola - Last Filed: 05/24/24 22:16> Addendum Narrative: 1800: Care assumed from Dr. Nicholas, the previous shift emergency physician. Past medical, surgical, social and family history reviewed. Vitals and home medications reviewed. I will assume the care of the patient at this time, pending remainder of diagnostic tests and final disposition. Please refer to the emergency department record for history and examination from initial visit.? Physical exam by me shows patient under no acute distress at this time. Patient resting comfortably, O2 sat is 98% on trach. Abdomen is soft and mildly distended. Per the nurse the patient was given an enema here and had a very soft stool. No rectal impaction at this time. CT scan is pending but suspect the patient may be in urinary retention secondary to the amount of abdominal stool. Bladder scan is pending. RADIOLOGY Procedure(s): CT chest abdomen pelvis w Accession Number(s): [id number] cc: Roberth Banks MD; NO PRIMARY/FAMILY,PHYSICIAN; Meli Grigsby MD~ Examination: CT chest with intravenous contrast CT abdomen with intravenous contrast CT pelvis with intravenous contrast 2-D coronal and sagittal reconstructions Time of exam: June 03, 2024 1916 hrs. Indications: Sepsis abdominal distention abdominal pain today CTDI: vol (mGy) : 17.2 DLP: (mGycm): 1301 Technique: Multiple axial images of the chest, abdomen and pelvis with intravenous contrast, 3.0 mm slice thickness. Images obtained post intravenous injection Isovue 370 60 cc. 2-D sagittal and coronal reconstructions. Low dose protocols were performed. One or more of the following dose reduction techniques were used; automated exposure control, adjustment of the mA and/or KV according to patient size, use of iterative reconstruction technique. Findings: Tracheal tube tip 6 cm above delmy No thoracic aortic aneurysm dilatation Pulmonary artery segments are not enlarged Mild right hilar lymphadenopathy Mild vascular congestion Pneumonia right base Mild bilateral pleural fluid No visualized liver or splenic lesion Absent gallbladder Atrophic pancreas Normal adrenal glands Mild right hydronephrosis Aorta normal size Very large amounts of stool in the descending colon and rectosigmoid with thickening of the rectal wall Right inguinal hernia containing a portion of the bladder Fat-containing left inguinal hernia Prominent osteopenia Impression: Right base pneumonia Mild right hydronephrosis, no ureteral calculi Very large amounts of stool in the descending colon and rectosigmoid with proctitis pattern Right inguinal hernia containing a portion of the urinary bladder Dictated By: Roberth Banks MD <Meli Grigsby MD - Last Filed: 05/24/24 19:10> Addendum Narrative: 1800: Care assumed from Dr. Nicholas, the previous shift emergency physician. Past medical, surgical, social and family history reviewed. Vitals and home medications reviewed. I will assume the care of the patient at this time, pending remainder of diagnostic tests and final disposition. Please refer to the emergency department record for history and examination from initial visit.? Physical exam by me shows patient under no acute distress at this time. Patient resting comfortably, O2 sat is 98% on trach. Abdomen is soft and mildly distended. Per the nurse the patient was given an enema here and had a very soft stool. No rectal impaction at this time. CT scan is pending but suspect the patient may be in urinary retention secondary to the amount of abdominal stool. Bladder scan is pending. <Alesia Pelaez - Last Filed: 05/25/24 00:06> Addendum Narrative: 1800: Care assumed from Dr. Nicholas, the previous shift emergency physician. Past medical, surgical, social and family history reviewed. Vitals and home medications reviewed. I will assume the care of the patient at this time, pending remainder of diagnostic tests and final disposition. Please refer to the emergency department record for history and examination from initial visit.? Physical exam by me shows patient under no acute distress at this time. Patient resting comfortably, O2 sat is 98% on trach. Abdomen is soft and mildly distended. Per the nurse the patient was given an enema here and had a very soft stool. No rectal impaction at this time. CT scan is pending but suspect the patient may be in urinary retention secondary to the amount of abdominal stool. Bladder scan is pending. 0000: Discussed results with Dr. Rolle, who states he feels comfortable accepting the patient back to subacute. RADIOLOGY Procedure(s): CT chest abdomen pelvis w Accession Number(s): [id number] cc: Roberth Banks MD; NO PRIMARY/FAMILY,PHYSICIAN; Meli Grigsby MD~ Examination: CT chest with intravenous contrast CT abdomen with intravenous contrast CT pelvis with intravenous contrast 2-D coronal and sagittal reconstructions Time of exam: June 03, 2024 1916 hrs. Indications: Sepsis abdominal distention abdominal pain today CTDI: vol (mGy) : 17.2 DLP: (mGycm): 1301 Technique: Multiple axial images of the chest, abdomen and pelvis with intravenous contrast, 3.0 mm slice thickness. Images obtained post intravenous injection Isovue 370 60 cc. 2-D sagittal and coronal reconstructions. Low dose protocols were performed. One or more of the following dose reduction techniques were used; automated exposure control, adjustment of the mA and/or KV according to patient size, use of iterative reconstruction technique. Findings: Tracheal tube tip 6 cm above delmy No thoracic aortic aneurysm dilatation Pulmonary artery segments are not enlarged Mild right hilar lymphadenopathy Mild vascular congestion Pneumonia right base Mild bilateral pleural fluid No visualized liver or splenic lesion Absent gallbladder Atrophic pancreas Normal adrenal glands Mild right hydronephrosis Aorta normal size Very large amounts of stool in the descending colon and rectosigmoid with thickening of the rectal wall Right inguinal hernia containing a portion of the bladder Fat-containing left inguinal hernia Prominent osteopenia Impression: Right base pneumonia Mild right hydronephrosis, no ureteral calculi Very large amounts of stool in the descending colon and rectosigmoid with proctitis pattern Right inguinal hernia containing a portion of the urinary bladder Dictated By: Roberth Banks MD
[2024-05-24] MEDS: VANCOMYCIN/NS 1 GM IVPB 200 ML IV (21:06)
[2024-05-24 21:30] LABS: Collection Type, Urine Catheter
[2024-05-24 21:55] LABS: Bilirubin,Urine Negative (Negative); Blood,Urine 3+ (Negative); Clarity,Urine Clear (Clear/Hazy); Glucose, Urine Negative (Negative); Ketones,Urine Negative (Negative); Leukocyte Esterase,Urine Positive (Negative); Nitrite,Urine Negative (Negative); PH,Urine 6.5 (5.0-7.0); Protein,Urine 1+ (Neg - Trace); RBC,Urine 418 /hpf (0-3); Squamous Epithelial Cell,Urine 1 /hpf (0-5); Urobilinogen,Urine Negative mg/dL (0.0-1.0); WBC,Urine 271 /hpf (0-5)
[2024-05-24 21:56] LABS: Color,Urine Yellow (Lt Yel-Yel); Specific Gravity,Urine 1.035 (1.001-1.035)
[2024-05-25 00:50] VITALS: BP 131/75; PULSE 87; RESP 20; O2SAT 99
== END 2024-05-25 01:02 | disposition skilled nursing facility (03) ==
PROVIDERS: Emergency Medicine; Emergency Provider Emergency Medicine
DX: N39.0 Urinary tract infection, site not specified (principal); K59.00 Constipation, unspecified; J18.9 Pneumonia, unspecified organism; N13.30 Unspecified hydronephrosis; K40.90 Unilateral inguinal hernia, without obstruction or gangrene, not specified as recurrent
CPT/HCPCS: 36415; 71045; 71260; 74177; 80053; 81001; 83605; 83615; 83735; 84100; 84145; 85025; 87040; 87086; 93005; 96365; 96366; 99285; A4649; J2543; J3370; J7030; J7050; Q9967

== ENCOUNTER 2024-05-29 04:52 | Inpatient (IN) | payer MEDICARE, MEDICAID, SELFPAY ==
[2024-05-29] VITALS (17 sets, daily range): BP systolic 115–143; BP diastolic 72–116; PULSE 93–116; RESP 10–31; TEMP 36.5–37.8; O2SAT 87–100
--- NOTE | 2024-05-29 04:55 | PC.NURSE ---
PT FROM [facility] PRESENTS TO ER WITH C/O CONSTIPATION AND ABD DISTENTION. PER [facility] HUI BRANTLEY STATES PT HAS NOT HAD BM FOR 5 DAYS. HUI BRANTLEY STATES PT HAD SMUG OF STOOL IN BRIEF BUT THAT ABD DISTENTION SEEMS TO BE WORSENING. [facility] RN DENIES ANY N/V. PT IS NONVERBAL, TRACH AND MECHANICALLY VENTILATED. PT PLACED ON [facility] AND [facility]. IV STARTED, DR NGUYEN AT BEDSIDE. NEW ORDERS GIVEN.
--- NOTE | 2024-05-29 04:58 | PD.EDABDPN ---
ED Abdominal Pain RME/HPI General Chief Complaint: Abdominal Pain Stated complaint: ABD DISTENTION Time seen by provider: 05/29/24 04:58 Arrival date/time: 05/29/24 04:52 RME / HPI RME / HPI narrative: Dr. Streeter?s Main ED Evaluation: 73yo male brought in from subacute presents to the ED for a chief complaint of abdominal distention. Per subacute nursing staff, patient has not had a bowel movement for the last 5 days. Nursing staff state that Dr. Durant tried to digitally disimpact him today without any success. Nursing staff notes the patient passed one [id number] sized bowel movement, but has had severe abdominal distention, so he was sent over for evaluation. Denies any vomiting. Full ROS is unobtainable due to the patient being nonverbal. PMHx: CVA, dementia, chronic respiratory failure, s/p tracheostomy with ventilator dependance, s/p G-tube placement, diabetes, hyperlipidemia Related Data Home Medications ?Medication ?Instructions ?Recorded ?Confirmed acetaminophen 325 mg/10.15 mL oral 650 mg feeding tube Q6HR PRN Fever 05/30/24 05/30/24 solution >101 amoxicillin 400 mg-potassium 5 ml feeding tube BID 05/30/24 05/30/24 clavulanate 57 mg/5 mL oral suspension aspirin 81 mg tablet,delayed 81 mg feeding tube QDAY 05/30/24 05/30/24 release calcium 500 mg (as 1 tab feeding tube QDAY 05/30/24 05/30/24 carbonate)-vitamin D3 5 mcg (200 unit) tablet ipratropium 0.5 mg-albuterol 3 mg 3 ml inhalation Q6H PRN Shortness 05/30/24 05/30/24 (2.5 mg base)/3 mL nebulization Of Breath Or Wheezing soln magnesium hydroxide 400 mg/5 mL 30 ml feeding tube Q72H PRN 05/30/24 05/30/24 oral suspension (Milk of Magnesia) Constipation polyethylene glycol 3350 17 gram 17 g feeding tube QDAY PRN 05/30/24 05/30/24 oral powder packet (Miralax) Constipation quetiapine 25 mg tablet 100 mg feeding tube BID 05/30/24 05/30/24 sennosides 8.6 mg tablet (senna) 8.6 mg feeding tube BID 05/30/24 05/30/24 Allergies Allergy/AdvReac Type Severity Reaction Status Date / Time No Known Allergies Allergy Verified 02/05/20 14:36 Review of Systems Review of Systems ROS Unobtainable: other (unobtainable due to the patient being nonverbal) ED Exam Narrative Physical exam: GENERAL APPEARANCE: alert and oriented x 4, well-developed, well-nourished, appears uncomfortable, no acute distress HEENT: Normocephalic, atraumatic; pupils equal, round, reactive to light; EOMI; mucous membranes pink, dry; oropharynx clear NECK: Supple; trach in place LUNGS: CTABL; no wheezes, no rales, no rhonchi HEART: Regular rate, regular rhythm; normal S1, S2; no murmurs ABDOMEN: very distended; normal BS; soft, no tenderness, no guarding, no rebound; no masses, no organomegaly, no hernia BACK: no CVA tenderness EXTREMITIES: atraumatic; no edema NEUROLOGIC: awake; alert and oriented x4; cranial nerves II-XII grossly intact; no focal sensory or motor deficits PSYCHIATRIC: appropriate mood and affect SKIN: warm, dry, normal color; no rashes Course Course Course Narrative: CXR is ordered to confirm NG tube placement. 0600: Care signed out to Dr. Gallegos (emergency physician). Past medical, surgical, social and family history reviewed. Vitals and home medications reviewed. Results and treatment plan discussed. They will assume the care of the patient at this time and will follow the patient, pending CT, remainder of labs, and final disposition. Quality Measures none Orders Category Date Time Status Bedside COVID-19 Antigen Test NOW Care 05/29/24 06:55 Completed Bedside Influenza A&B Antigen Test NOW Care 05/29/24 06:55 Completed COVID-19 Screening Questionnaire NOW Care 05/29/24 07:[address] Screening NOW Care 05/29/24 04:59 Completed Decision to Admit X1 Care 05/29/24 07:22 Completed Saline [Insert IV] NOW Care 05/29/24 06:56 Completed Consult to General Surgery Stat Cons 05/29/24 07:[address] abdomen pelvis w con Stat Exams 05/29/24 04:59 Completed KUB [XR abdomen 1V] Stat Exams 05/29/24 05:08 Completed XR chest 1V post procedure Stat Exams 05/29/24 05:01 Completed Blood Culture (Lab) Stat Lab 05/29/24 05:00 Completed CBC Stat Lab 05/29/24 05:00 Completed Comprehensive Metabolic Panel Stat Lab 05/29/24 05:00 Completed Lactate (Lactic Acid) Stat Lab 05/29/24 05:00 Completed Lactic Acid, 3 HR Stat Lab 05/29/24 08:34 Completed Lipase Stat Lab 05/29/24 05:00 Completed Magnesium Stat Lab 05/29/24 05:00 Completed Procalcitonin Stat Lab 05/29/24 05:00 Completed Acetaminophen Ivpb [Ofirmev Inj] Med 05/29/24 06:56 Discontinued 1,000 mg in 100 ml IV NOW Cefepime Inj [Maxipime Inj] 2 gm Med 05/29/24 06:56 Discontinued Sodium Chloride 0.9% (P) [Ns 0.9% (P)] 50 ml IV X1 POTASSIUM CHL 10 mEq IVPB [Kcl Ivpb] Med 05/29/24 06:19 Discontinued 10 meq in 100 ml IV X1 Sodium Chloride 0.9% 1000 ml [Ns] 1,000 ml Med 05/29/24 06:56 Discontinued IV 999 mls/hr Vancomycin Inj 2,000 mg Med 05/29/24 06:57 Discontinued Sodium Chloride 0.9% 500 ml [Ns] 500 ml IV X1 Vital Signs Vital signs: Vital Signs Pulse Rate 101 H 05/29/24 04:55 Blood Pressure 140/84 H 05/29/24 04:55 Pulse Oximetry (%) 98 05/29/24 04:55 Fraction of Inspired Oxygen 21 05/29/24 04:55 Abdominal Pain MDM MDM Narrative MDM Narrative:: Scribe Attestation: 05/29/24 Alesia Arizmendi am scribing for and in the presence of Dr. Streeter. 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 Social determinants that could affect healthcare access:: housing (Pt resides in subacute.) Patient has the following chronic illnesses:: CVA, dementia, chronic respiratory failure, s/p tracheostomy with ventilator dependance, s/p G-tube placement, diabetes, hyperlipidemia How is presenting disease/condition affected by chronic disease/condition?: uneffected by Evaluation data The following diagnostics were reviewed and interpreted by me:: lab results and radiology exam(s) Lab and/or radiology exams considered but not ordered:: none Interpretation Summary: WBC count is normal, HnH is stable, Lactate is slightly elevated at 2.1, according to my interpretation. KUB shows greatly distended bowel and large fecal burden, according to my interpretation. CXR shows an elevated right hemidiaphragm, distended bowel, and mild vascular markings, according to my interpretation. Medications / Prescriptions Medications or Prescriptions considered but not ordered:: none Medication administrations:: Medication Administration History Acetaminophen (Acetaminophen Lindsey 325 Mg/10 Ml Udc) 650 mg GT Q6HR PRN PRN Reason: Pain Or Fever > 100.4 Stop: 07/04/24 15:08 Last Admin: 06/04/24 16:40 Dose: 650 mg Documented By: MGSarah Albuterol/Ipratropium (Albuterol/Ipratropium (Duoneb) Rt Lindsey 3 Ml Nebu) 3 ml INH Q2HR PRN PRN Reason: SHORTNESS OF BREATH OR WHEEZE Stop: 07/04/24 15:32 Amiodarone HCl (Amiodarone Hcl 200 Mg Tablet) 200 mg GT BID XOCHITL Stop: 07/05/24 20:59 Last Admin: 06/11/24 08:30 Dose: 200 mg Documented By: Admin: 06/10/24 21:50 Dose: 200 mg Documented By: Admin: 06/10/24 08:33 Dose: 200 mg Documented By: Admin: 06/09/24 20:58 Dose: 200 mg Documented By: Admin: 06/09/24 08:55 Dose: 200 mg Documented By: Admin: 06/08/24 20:25 Dose: 200 mg Documented By: Admin: 06/08/24 08:24 Dose: 200 mg Documented By: Admin: 06/07/24 21:12 Dose: 200 mg Documented By: Admin: 06/07/24 08:34 Dose: 200 mg Documented By: Admin: 06/06/24 20:56 Dose: 200 mg Documented By: Admin: 06/06/24 08:23 Dose: 200 mg Documented By: Admin: 06/05/24 21:46 Dose: 200 mg Documented By: RH Artificial Tears (Artificial Tears 225 Drop/15 Ml Btl) 0 drop BOTH EYES PRN PRN PRN Reason: TO KEEP EYES MOIST Stop: 07/08/24 19:43 Last Admin: 06/08/24 20:14 Dose: 1 drop Documented By: SHAHBAZ Calcium Acetate (Calcium Acetate 667 Mg Tablet) 667 mg GT TIDWM [facility]1983 Stop: 07/04/24 18:44 Last Admin: 06/11/24 13:01 Dose: 667 mg Documented By: MGSarah Admin: 06/11/24 08:30 Dose: 667 mg Documented By: MGSarah Admin: 06/10/24 17:50 Dose: 667 mg Documented By: Admin: 06/10/24 12:05 Dose: 667 mg Documented By: Admin: 06/10/24 08:33 Dose: 667 mg Documented By: JRNicole Admin: 06/09/24 19:08 Dose: 667 mg Documented By: MGSarah Admin: 06/09/24 12:48 Dose: 667 mg Documented By: MGSarah Admin: 06/09/24 08:55 Dose: 667 mg Documented By: MGSarah Admin: 06/08/24 18:06 Dose: 667 mg Documented By: Admin: 06/08/24 11:25 Dose: 667 mg Documented By: Admin: 06/08/24 08:38 Dose: 667 mg Documented By: KENNY Dextrose (Dextrose 50%-Water Inj 50 Ml Syringe) 25 ml IV Q15MIN PRN PRN Reason: BG 50-70 responsive npo pt Stop: 07/04/24 15:31 Dextrose (Dextrose 50%-Water Inj 50 Ml Syringe) 50 ml IV Q15MIN PRN PRN Reason: BG <50 OR BG <70 & pt unresponsive Stop: 07/04/24 15:31 Heparin Sodium (Porcine) (Heparin Sod Inj 5000 Unit/Ml Vial) 5,000 unit SC Q8HR [facility] Stop: 06/18/24 21:59 Last Admin: 06/06/24 06:18 Dose: 5,000 unit Documented By: ELIF Co-signed By: ZP Admin: 06/05/24 21:47 Dose: 5,000 unit Documented By: ELIF Co-signed By: CLT Admin: 06/05/24 15:55 Dose: Not Given Documented By: ER Non-Admin Reason: Contraindicated Admin: 06/05/24 06:09 Dose: Not Given Documented By: CMN Non-Admin Reason: Contraindicated Admin: 06/04/24 21:23 Dose: 5,000 unit Documented By: CMN Co-signed By: Heparin Sodium (Porcine) (Heparin Sod Inj 1000 Unit/Ml Vial 10 Ml) 2,200 unit INDWELLCAT PRN PRN PRN Reason: DIALYSIS Stop: 06/19/24 17:02 Last Admin: 06/07/24 08:55 Dose: 2,200 unit Documented By: CR Co-signed By: AT Admin: 06/06/24 11:19 Dose: 2,200 unit Documented By: ED Co-signed By: MGD(2) Norepinephrine/Dextrose (Levophed In D5w 8mg/250ml) 8 mg in 250 mls @ 6.572 mls/hr IV .Q24H PRN; Protocol PRN Reason: PER PROTOCOL Stop: 07/03/24 11:36 Last Titration: 06/11/24 10:19 Dose: 0.15 mcg/kg/min, 19.716 mls/hr Documented By: Titration: 06/11/24 10:00 Dose: 0.17 mcg/kg/min, 22.344 mls/hr Documented By: Titration: 06/11/24 09:00 Dose: 0.17 mcg/kg/min, 22.344 mls/hr Documented By: Titration: 06/11/24 08:53 Dose: 0.17 mcg/kg/min, 22.344 mls/hr Documented By: Titration: 06/11/24 08:34 Dose: 0.19 mcg/kg/min, 24.973 mls/hr Documented By: Titration: 06/11/24 08:14 Dose: 0.21 mcg/kg/min, 27.602 mls/hr Documented By: Titration: 06/11/24 08:00 Dose: 0.23 mcg/kg/min, 30.231 mls/hr Documented By: Titration: 06/11/24 07:00 Dose: 0.23 mcg/kg/min, 30.231 mls/hr Documented By: Titration: 06/11/24 06:00 Dose: 0.23 mcg/kg/min, 30.231 mls/hr Documented By: Titration: 06/11/24 05:00 Dose: 0.23 mcg/kg/min, 30.231 mls/hr Documented By: Admin: 06/11/24 04:07 Dose: 0.23 mcg/kg/min, 30.231 mls/hr Documented By: Titration: 06/11/24 04:07 Dose: Infused Documented By: Titration: 06/11/24 03:00 Dose: 0.23 mcg/kg/min, 30.231 mls/hr Documented By: Titration: 06/11/24 02:00 Dose: 0.23 mcg/kg/min, 30.231 mls/hr Documented By: Titration: 06/11/24 01:00 Dose: 0.23 mcg/kg/min, 30.231 mls/hr Documented By: Titration: 06/11/24 00:00 Dose: 0.23 mcg/kg/min, 30.231 mls/hr Documented By: Titration: 06/10/24 23:00 Dose: 0.23 mcg/kg/min, 30.231 mls/hr Documented By: Titration: 06/10/24 22:00 Dose: 0.23 mcg/kg/min, 30.231 mls/hr Documented By: Titration: 06/10/24 21:00 Dose: 0.23 mcg/kg/min, 30.231 mls/hr Documented By: Titration: 06/10/24 20:00 Dose: 0.23 mcg/kg/min, 30.231 mls/hr Documented By: Admin: 06/10/24 19:50 Dose: 0.23 mcg/kg/min, 30.231 mls/hr Documented By: Titration: 06/10/24 19:14 Dose: Infused Documented By: Titration: 06/10/24 19:00 Dose: Infused Documented By: Titration: 06/10/24 18:00 Dose: 0.23 mcg/kg/min, 30.231 mls/hr Documented By: Titration: 06/10/24 17:00 Dose: 0.21 mcg/kg/min, 27.602 mls/hr Documented By: Titration: 06/10/24 16:00 Dose: 0.21 mcg/kg/min, 27.602 mls/hr Documented By: Titration: 06/10/24 15:34 Dose: 0.21 mcg/kg/min, 27.602 mls/hr Documented By: Titration: 06/10/24 15:00 Dose: 0.21 mcg/kg/min, 27.602 mls/hr Documented By: Titration: 06/10/24 14:00 Dose: 0.21 mcg/kg/min, 27.602 mls/hr Documented By: Titration: 06/10/24 13:00 Dose: 0.21 mcg/kg/min, 27.602 mls/hr Documented By: Titration: 06/10/24 12:00 Dose: 0.21 mcg/kg/min, 27.602 mls/hr Documented By: Titration: 06/10/24 11:07 Dose: 0.21 mcg/kg/min, 27.602 mls/hr Documented By: Titration: 06/10/24 11:00 Dose: 0.21 mcg/kg/min, 27.602 mls/hr Documented By: Titration: 06/10/24 10:55 Dose: 0.19 mcg/kg/min, 24.973 mls/hr Documented By: Titration: 06/10/24 10:32 Dose: 0.19 mcg/kg/min, 24.973 mls/hr Documented By: Titration: 06/10/24 10:00 Dose: 0.17 mcg/kg/min, 22.344 mls/hr Documented By: Admin: 06/10/24 09:36 Dose: 0.17 mcg/kg/min, 22.344 mls/hr Documented By: Titration: 06/10/24 09:34 Dose: Infused Documented By: Titration: 06/10/24 09:00 Dose: Infused Documented By: Titration: 06/10/24 09:00 Dose: Infused Documented By: Titration: 06/10/24 08:00 Dose: 0.17 mcg/kg/min, 22.344 mls/hr Documented By: Titration: 06/10/24 07:00 Dose: 0.17 mcg/kg/min, 22.344 mls/hr Documented By: Titration: 06/10/24 06:00 Dose: 0.17 mcg/kg/min, 22.344 mls/hr Documented By: Titration: 06/10/24 05:00 Dose: 0.17 mcg/kg/min, 22.344 mls/hr Documented By: Titration: 06/10/24 04:00 Dose: 0.17 mcg/kg/min, 22.344 mls/hr Documented By: Titration: 06/10/24 03:00 Dose: 0.17 mcg/kg/min, 22.344 mls/hr Documented By: Titration: 06/10/24 02:00 Dose: 0.17 mcg/kg/min, 22.344 mls/hr Documented By: Titration: 06/10/24 01:00 Dose: 0.19 mcg/kg/min, 24.973 mls/hr Documented By: Titration: 06/10/24 00:00 Dose: 0.19 mcg/kg/min, 24.973 mls/hr Documented By: Titration: 06/09/24 23:00 Dose: 0.21 mcg/kg/min, 27.602 mls/hr Documented By: Titration: 06/09/24 22:00 Dose: 0.21 mcg/kg/min, 27.602 mls/hr Documented By: Admin: 06/09/24 21:47 Dose: 0.21 mcg/kg/min, 27.602 mls/hr Documented By: Titration: 06/09/24 21:47 Dose: Infused Documented By: Titration: 06/09/24 21:00 Dose: 0.21 mcg/kg/min, 27.602 mls/hr Documented By: Titration: 06/09/24 20:00 Dose: 0.23 mcg/kg/min, 30.231 mls/hr Documented By: Titration: 06/09/24 19:00 Dose: 0.25 mcg/kg/min, 32.859 mls/hr Documented By: Titration: 06/09/24 18:00 Dose: 0.27 mcg/kg/min, 35.488 mls/hr Documented By: Titration: 06/09/24 17:00 Dose: 0.27 mcg/kg/min, 35.488 mls/hr Documented By: Titration: 06/09/24 16:00 Dose: 0.29 mcg/kg/min, 38.117 mls/hr Documented By: Titration: 06/09/24 15:00 Dose: 0.29 mcg/kg/min, 38.117 mls/hr Documented By: Admin: 06/09/24 14:31 Dose: 0.29 mcg/kg/min, 38.117 mls/hr Documented By: Titration: 06/09/24 14:00 Dose: Infused Documented By: Titration: 06/09/24 13:00 Dose: 0.29 mcg/kg/min, 38.117 mls/hr Documented By: Titration: 06/09/24 12:09 Dose: 0.29 mcg/kg/min, 38.117 mls/hr Documented By: Titration: 06/09/24 11:24 Dose: 0.31 mcg/kg/min, 40.746 mls/hr Documented By: Titration: 06/09/24 11:05 Dose: 0.31 mcg/kg/min, 40.746 mls/hr Documented By: Titration: 06/09/24 09:41 Dose: 0.33 mcg/kg/min, 43.374 mls/hr Documented By: Titration: 06/09/24 09:21 Dose: 0.35 mcg/kg/min, 46.003 mls/hr Documented By: Titration: 06/09/24 09:00 Dose: 0.37 mcg/kg/min, 48.632 mls/hr Documented By: Titration: 06/09/24 08:00 Dose: 0.37 mcg/kg/min, 48.632 mls/hr Documented By: Admin: 06/09/24 07:24 Dose: 0.37 mcg/kg/min, 48.632 mls/hr Documented By: Titration: 06/09/24 07:24 Dose: Infused Documented By: Titration: 06/09/24 07:00 Dose: 0.37 mcg/kg/min, 48.632 mls/hr Documented By: Titration: 06/09/24 06:36 Dose: 0.37 mcg/kg/min, 48.632 mls/hr Documented By: Titration: 06/09/24 06:00 Dose: 0.39 mcg/kg/min, 51.261 mls/hr Documented By: Titration: 06/09/24 05:00 Dose: 0.39 mcg/kg/min, 51.261 mls/hr Documented By: Titration: 06/09/24 04:00 Dose: 0.39 mcg/kg/min, 51.261 mls/hr Documented By: Titration: 06/09/24 03:00 Dose: 0.39 mcg/kg/min, 51.261 mls/hr Documented By: Admin: 06/09/24 02:15 Dose: 0.39 mcg/kg/min, 51.261 mls/hr Documented By: Titration: 06/09/24 02:15 Dose: Infused Documented By: Titration: 06/09/24 02:00 Dose: 0.39 mcg/kg/min, 51.261 mls/hr Documented By: Titration: 06/09/24 01:00 Dose: 0.39 mcg/kg/min, 51.261 mls/hr Documented By: Titration: 06/09/24 00:00 Dose: 0.39 mcg/kg/min, 51.261 mls/hr Documented By: Titration: 06/08/24 23:00 Dose: 0.39 mcg/kg/min, 51.261 mls/hr Documented By: Titration: 06/08/24 22:00 Dose: 0.39 mcg/kg/min, 51.261 mls/hr Documented By: Titration: 06/08/24 21:41 Dose: 0.39 mcg/kg/min, 51.261 mls/hr Documented By: Admin: 06/08/24 21:07 Dose: 0.41 mcg/kg/min, 53.889 mls/hr Documented By: Titration: 06/08/24 21:00 Dose: Infused Documented By: Titration: 06/08/24 20:00 Dose: 0.41 mcg/kg/min, 53.889 mls/hr Documented By: Titration: 06/08/24 19:10 Dose: 0.41 mcg/kg/min, 53.889 mls/hr Documented By: Titration: 06/08/24 19:00 Dose: 0.39 mcg/kg/min, 51.261 mls/hr Documented By: Titration: 06/08/24 16:21 Dose: 0.39 mcg/kg/min, 51.261 mls/hr Documented By: Titration: 06/08/24 16:00 Dose: 0.39 mcg/kg/min, 51.261 mls/hr Documented By: Admin: 06/08/24 15:53 Dose: 0.39 mcg/kg/min, 51.261 mls/hr Documented By: Titration: 06/08/24 15:53 Dose: Infused Documented By: Titration: 06/08/24 14:46 Dose: 0.41 mcg/kg/min, 53.889 mls/hr Documented By: Titration: 06/08/24 14:41 Dose: 0.39 mcg/kg/min, 51.261 mls/hr Documented By: Titration: 06/08/24 14:32 Dose: 0.37 mcg/kg/min, 48.632 mls/hr Documented By: Titration: 06/08/24 14:21 Dose: 0.35 mcg/kg/min, 46.003 mls/hr Documented By: Titration: 06/08/24 14:16 Dose: 0.33 mcg/kg/min, 43.374 mls/hr Documented By: Titration: 06/08/24 14:00 Dose: 0.31 mcg/kg/min, 40.746 mls/hr Documented By: Titration: 06/08/24 13:30 Dose: 0.29 mcg/kg/min, 38.117 mls/hr Documented By: Titration: 06/08/24 13:00 Dose: 0.29 mcg/kg/min, 38.117 mls/hr Documented By: Titration: 06/08/24 12:15 Dose: 0.29 mcg/kg/min, 38.117 mls/hr Documented By: Titration: 06/08/24 12:00 Dose: 0.29 mcg/kg/min, 38.117 mls/hr Documented By: Titration: 06/08/24 11:00 Dose: 0.29 mcg/kg/min, 38.117 mls/hr Documented By: Titration: 06/08/24 10:00 Dose: 0.29 mcg/kg/min, 38.117 mls/hr Documented By: Admin: 06/08/24 09:55 Dose: 0.29 mcg/kg/min, 38.117 mls/hr Documented By: Titration: 06/08/24 09:34 Dose: Infused Documented By: Titration: 06/08/24 09:30 Dose: Infused Documented By: Titration: 06/08/24 09:15 Dose: Infused Documented By: Titration: 06/08/24 09:02 Dose: 0.23 mcg/kg/min, 30.231 mls/hr Documented By: Titration: 06/08/24 09:00 Dose: 0.23 mcg/kg/min, 30.231 mls/hr Documented By: Titration: 06/08/24 08:00 Dose: 0.23 mcg/kg/min, 30.231 mls/hr Documented By: Titration: 06/08/24 07:00 Dose: 0.23 mcg/kg/min, 30.231 mls/hr Documented By: Titration: 06/08/24 06:00 Dose: 0.23 mcg/kg/min, 30.231 mls/hr Documented By: Titration: 06/08/24 05:00 Dose: 0.23 mcg/kg/min, 30.231 mls/hr Documented By: Titration: 06/08/24 05:00 Dose: 0.21 mcg/kg/min, 27.602 mls/hr Documented By: Titration: 06/08/24 04:00 Dose: 0.21 mcg/kg/min, 27.602 mls/hr Documented By: Titration: 06/08/24 03:00 Dose: 0.21 mcg/kg/min, 27.602 mls/hr Documented By: Titration: 06/08/24 02:33 Dose: 0.21 mcg/kg/min, 27.602 mls/hr Documented By: Titration: 06/08/24 02:00 Dose: 0.19 mcg/kg/min, 24.973 mls/hr Documented By: Titration: 06/08/24 01:00 Dose: 0.19 mcg/kg/min, 24.973 mls/hr Documented By: Admin: 06/08/24 00:21 Dose: 0.19 mcg/kg/min, 24.973 mls/hr Documented By: Titration: 06/08/24 00:21 Dose: Infused Documented By: Titration: 06/08/24 00:00 Dose: Infused Documented By: Titration: 06/07/24 23:00 Dose: 0.19 mcg/kg/min, 24.973 mls/hr Documented By: Titration: 06/07/24 22:00 Dose: 0.19 mcg/kg/min, 24.973 mls/hr Documented By: Titration: 06/07/24 21:00 Dose: 0.19 mcg/kg/min, 24.973 mls/hr Documented By: Titration: 06/07/24 20:00 Dose: 0.19 mcg/kg/min, 24.973 mls/hr Documented By: Titration: 06/07/24 19:00 Dose: 0.19 mcg/kg/min, 24.973 mls/hr Documented By: Titration: 06/07/24 18:00 Dose: 0.17 mcg/kg/min, 22.344 mls/hr Documented By: Titration: 06/07/24 17:00 Dose: 0.17 mcg/kg/min, 22.344 mls/hr Documented By: Titration: 06/07/24 16:00 Dose: 0.17 mcg/kg/min, 22.344 mls/hr Documented By: Titration: 06/07/24 15:00 Dose: 0.17 mcg/kg/min, 22.344 mls/hr Documented By: Titration: 06/07/24 14:00 Dose: 0.17 mcg/kg/min, 22.344 mls/hr Documented By: Titration: 06/07/24 13:00 Dose: 0.17 mcg/kg/min, 22.344 mls/hr Documented By: Admin: 06/07/24 12:52 Dose: 0.17 mcg/kg/min, 22.344 mls/hr Documented By: Titration: 06/07/24 12:49 Dose: Infused Documented By: Titration: 06/07/24 12:00 Dose: 0.15 mcg/kg/min, 19.716 mls/hr Documented By: Titration: 06/07/24 11:00 Dose: 0.17 mcg/kg/min, 22.344 mls/hr Documented By: Titration: 06/07/24 10:18 Dose: 0.15 mcg/kg/min, 19.716 mls/hr Documented By: Titration: 06/07/24 10:00 Dose: 0.17 mcg/kg/min, 22.344 mls/hr Documented By: Titration: 06/07/24 09:00 Dose: 0.17 mcg/kg/min, 22.344 mls/hr Documented By: Titration: 06/07/24 08:45 Dose: 0.17 mcg/kg/min, 22.344 mls/hr Documented By: Titration: 06/07/24 08:17 Dose: 0.19 mcg/kg/min, 24.973 mls/hr Documented By: Titration: 06/07/24 08:00 Dose: 0.17 mcg/kg/min, 22.344 mls/hr Documented By: Titration: 06/07/24 07:59 Dose: 0.17 mcg/kg/min, 22.344 mls/hr Documented By: Titration: 06/07/24 07:33 Dose: 0.15 mcg/kg/min, 19.716 mls/hr Documented By: Titration: 06/07/24 07:00 Dose: 0.13 mcg/kg/min, 17.087 mls/hr Documented By: Titration: 06/07/24 06:00 Dose: 0.13 mcg/kg/min, 17.087 mls/hr Documented By: Titration: 06/07/24 05:00 Dose: 0.13 mcg/kg/min, 17.087 mls/hr Documented By: Titration: 06/07/24 04:00 Dose: 0.13 mcg/kg/min, 17.087 mls/hr Documented By: Titration: 06/07/24 03:00 Dose: 0.13 mcg/kg/min, 17.087 mls/hr Documented By: Titration: 06/07/24 02:00 Dose: 0.13 mcg/kg/min, 17.087 mls/hr Documented By: Titration: 06/07/24 01:00 Dose: 0.13 mcg/kg/min, 17.087 mls/hr Documented By: Titration: 06/07/24 00:00 Dose: 0.13 mcg/kg/min, 17.087 mls/hr Documented By: Titration: 06/06/24 23:00 Dose: 0.13 mcg/kg/min, 17.087 mls/hr Documented By: Admin: 06/06/24 22:52 Dose: 0.13 mcg/kg/min, 17.087 mls/hr Documented By: Titration: 06/06/24 22:52 Dose: Infused Documented By: Titration: 06/06/24 22:00 Dose: 0.13 mcg/kg/min, 17.087 mls/hr Documented By: Titration: 06/06/24 21:00 Dose: 0.13 mcg/kg/min, 17.087 mls/hr Documented By: Titration: 06/06/24 20:00 Dose: 0.13 mcg/kg/min, 17.087 mls/hr Documented By: Titration: 06/06/24 19:00 Dose: 0.13 mcg/kg/min, 17.087 mls/hr Documented By: Titration: 06/06/24 18:00 Dose: 0.13 mcg/kg/min, 17.087 mls/hr Documented By: Titration: 06/06/24 17:55 Dose: 0.13 mcg/kg/min, 17.087 mls/hr Documented By: Titration: 06/06/24 17:45 Dose: 0.11 mcg/kg/min, 14.458 mls/hr Documented By: Titration: 06/06/24 17:00 Dose: 0.09 mcg/kg/min, 11.829 mls/hr Documented By: Titration: 06/06/24 16:00 Dose: 0.09 mcg/kg/min, 11.829 mls/hr Documented By: Titration: 06/06/24 15:00 Dose: 0.09 mcg/kg/min, 11.829 mls/hr Documented By: Titration: 06/06/24 14:34 Dose: 0.09 mcg/kg/min, 11.829 mls/hr Documented By: Titration: 06/06/24 14:00 Dose: 0.11 mcg/kg/min, 14.458 mls/hr Documented By: Titration: 06/06/24 13:00 Dose: 0.13 mcg/kg/min, 17.087 mls/hr Documented By: Titration: 06/06/24 12:00 Dose: 0.13 mcg/kg/min, 17.087 mls/hr Documented By: Titration: 06/06/24 11:56 Dose: 0.13 mcg/kg/min, 17.087 mls/hr Documented By: Titration: 06/06/24 11:49 Dose: 0.15 mcg/kg/min, 19.716 mls/hr Documented By: Titration: 06/06/24 11:32 Dose: 0.17 mcg/kg/min, 22.344 mls/hr Documented By: Titration: 06/06/24 11:00 Dose: 0.19 mcg/kg/min, 24.973 mls/hr Documented By: Titration: 06/06/24 10:32 Dose: 0.19 mcg/kg/min, 24.973 mls/hr Documented By: Titration: 06/06/24 10:27 Dose: 0.17 mcg/kg/min, 22.344 mls/hr Documented By: Titration: 06/06/24 10:11 Dose: 0.15 mcg/kg/min, 19.716 mls/hr Documented By: Titration: 06/06/24 10:00 Dose: 0.13 mcg/kg/min, 17.087 mls/hr Documented By: Titration: 06/06/24 09:00 Dose: 0.13 mcg/kg/min, 17.087 mls/hr Documented By: Titration: 06/06/24 08:00 Dose: 0.11 mcg/kg/min, 14.458 mls/hr Documented By: Titration: 06/06/24 07:00 Dose: 0.11 mcg/kg/min, 14.458 mls/hr Documented By: Titration: 06/06/24 06:00 Dose: 0.11 mcg/kg/min, 14.458 mls/hr Documented By: Titration: 06/06/24 05:00 Dose: 0.11 mcg/kg/min, 14.458 mls/hr Documented By: Titration: 06/06/24 04:00 Dose: 0.11 mcg/kg/min, 14.458 mls/hr Documented By: Admin: 06/06/24 03:45 Dose: 0.11 mcg/kg/min, 14.458 mls/hr Documented By: Titration: 06/06/24 03:45 Dose: Infused Documented By: Titration: 06/06/24 03:00 Dose: 0.11 mcg/kg/min, 14.458 mls/hr Documented By: Titration: 06/06/24 02:00 Dose: 0.11 mcg/kg/min, 14.458 mls/hr Documented By: Titration: 06/06/24 01:00 Dose: 0.11 mcg/kg/min, 14.458 mls/hr Documented By: Titration: 06/06/24 00:00 Dose: 0.11 mcg/kg/min, 14.458 mls/hr Documented By: Titration: 06/05/24 23:00 Dose: 0.11 mcg/kg/min, 14.458 mls/hr Documented By: Titration: 06/05/24 22:00 Dose: 0.11 mcg/kg/min, 14.458 mls/hr Documented By: Titration: 06/05/24 21:00 Dose: 0.11 mcg/kg/min, 14.458 mls/hr Documented By: Titration: 06/05/24 20:00 Dose: 0.11 mcg/kg/min, 14.458 mls/hr Documented By: Titration: 06/05/24 19:00 Dose: 0.11 mcg/kg/min, 14.458 mls/hr Documented By: Titration: 06/05/24 18:00 Dose: 0.11 mcg/kg/min, 14.458 mls/hr Documented By: Titration: 06/05/24 17:00 Dose: 0.11 mcg/kg/min, 14.458 mls/hr Documented By: Titration: 06/05/24 16:00 Dose: 0.11 mcg/kg/min, 14.458 mls/hr Documented By: Titration: 06/05/24 15:00 Dose: 0.11 mcg/kg/min, 14.458 mls/hr Documented By: Titration: 06/05/24 14:00 Dose: 0.11 mcg/kg/min, 14.458 mls/hr Documented By: Titration: 06/05/24 13:00 Dose: 0.11 mcg/kg/min, 14.458 mls/hr Documented By: Titration: 06/05/24 12:00 Dose: 0.11 mcg/kg/min, 14.458 mls/hr Documented By: Titration: 06/05/24 10:16 Dose: 0.11 mcg/kg/min, 14.458 mls/hr Documented By: Titration: 06/05/24 09:00 Dose: 0.09 mcg/kg/min, 11.829 mls/hr Documented By: Titration: 06/05/24 08:00 Dose: 0.09 mcg/kg/min, 11.829 mls/hr Documented By: Titration: 06/05/24 07:45 Dose: 0.09 mcg/kg/min, 11.829 mls/hr Documented By: Admin: 06/05/24 07:23 Dose: 0.11 mcg/kg/min, 14.458 mls/hr Documented By: Titration: 06/05/24 06:45 Dose: Infused Documented By: Titration: 06/05/24 06:15 Dose: 0.09 mcg/kg/min, 11.829 mls/hr Documented By: Titration: 06/05/24 06:00 Dose: 0.11 mcg/kg/min, 14.458 mls/hr Documented By: Titration: 06/05/24 05:45 Dose: 0.11 mcg/kg/min, 14.458 mls/hr Documented By: Titration: 06/05/24 05:00 Dose: 0.13 mcg/kg/min, 17.087 mls/hr Documented By: Titration: 06/05/24 04:00 Dose: 0.13 mcg/kg/min, 17.087 mls/hr Documented By: Titration: 06/05/24 03:00 Dose: 0.13 mcg/kg/min, 17.087 mls/hr Documented By: Titration: 06/05/24 02:00 Dose: 0.13 mcg/kg/min, 17.087 mls/hr Documented By: Titration: 06/05/24 01:48 Dose: 0.13 mcg/kg/min, 17.087 mls/hr Documented By: Titration: 06/05/24 01:41 Dose: 0.15 mcg/kg/min, 19.716 mls/hr Documented By: Titration: 06/05/24 01:00 Dose: 0.17 mcg/kg/min, 23 mls/hr Documented By: Titration: 06/05/24 00:00 Dose: 0.17 mcg/kg/min, 23 mls/hr Documented By: Titration: 06/04/24 23:00 Dose: 0.17 mcg/kg/min, 23 mls/hr Documented By: Titration: 06/04/24 22:45 Dose: 0.18 mcg/kg/min, 24.3 mls/hr Documented By: Titration: 06/04/24 22:00 Dose: 0.19 mcg/kg/min, 25.6 mls/hr Documented By: Titration: 06/04/24 21:00 Dose: 0.2 mcg/kg/min, 26.288 mls/hr Documented By: Titration: 06/04/24 20:15 Dose: 0.2 mcg/kg/min, 26.288 mls/hr Documented By: Titration: 06/04/24 20:00 Dose: 0.2 mcg/kg/min, 26.9 mls/hr Documented By: Titration: 06/04/24 19:15 Dose: 0.22 mcg/kg/min, 28.916 mls/hr Documented By: Titration: 06/04/24 19:00 Dose: 0.22 mcg/kg/min, 28.3 mls/hr Documented By: Titration: 06/04/24 18:16 Dose: 0.43 mcg/kg/min, 56.518 mls/hr Documented By: Admin: 06/04/24 18:12 Dose: 0.43 mcg/kg/min, 56.518 mls/hr Documented By: Titration: 06/04/24 17:00 Dose: Infused Documented By: Titration: 06/04/24 16:00 Dose: Infused Documented By: Titration: 06/04/24 15:00 Dose: 0.43 mcg/kg/min, 56.518 mls/hr Documented By: Titration: 06/04/24 14:00 Dose: 0.43 mcg/kg/min, 56.518 mls/hr Documented By: Titration: 06/04/24 13:06 Dose: 0.43 mcg/kg/min, 56.518 mls/hr Documented By: Titration: 06/04/24 12:32 Dose: 0.41 mcg/kg/min, 53.889 mls/hr Documented By: Titration: 06/04/24 11:46 Dose: 0.39 mcg/kg/min, 51.261 mls/hr Documented By: Admin: 06/04/24 10:43 Dose: 0.39 mcg/kg/min, 51.261 mls/hr Documented By: Titration: 06/04/24 08:27 Dose: Infused Documented By: Titration: 06/04/24 08:00 Dose: Infused Documented By: Titration: 06/04/24 07:00 Dose: Infused Documented By: Titration: 06/04/24 05:51 Dose: Infused Documented By: Titration: 06/04/24 04:00 Dose: 0.37 mcg/kg/min, 48.632 mls/hr Documented By: Titration: 06/04/24 03:45 Dose: 0.35 mcg/kg/min, 46.003 mls/hr Documented By: Titration: 06/04/24 03:00 Dose: 0.33 mcg/kg/min, 43.374 mls/hr Documented By: Titration: 06/04/24 02:00 Dose: 0.33 mcg/kg/min, 43.374 mls/hr Documented By: Titration: 06/04/24 01:00 Dose: 0.33 mcg/kg/min, 43.374 mls/hr Documented By: Titration: 06/04/24 00:00 Dose: 0.31 mcg/kg/min, 40.746 mls/hr Documented By: Admin: 06/03/24 23:51 Dose: 0.29 mcg/kg/min, 38.117 mls/hr Documented By: Titration: 06/03/24 18:00 Dose: Infused Documented By: Titration: 06/03/24 17:00 Dose: 0.29 mcg/kg/min, 38.117 mls/hr Documented By: Titration: 06/03/24 16:00 Dose: 0.29 mcg/kg/min, 38.117 mls/hr Documented By: Titration: 06/03/24 15:00 Dose: 0.29 mcg/kg/min, 38.117 mls/hr Documented By: Titration: 06/03/24 14:00 Dose: 0.29 mcg/kg/min, 38.117 mls/hr Documented By: Titration: 06/03/24 13:25 Dose: 0.29 mcg/kg/min, 38.117 mls/hr Documented By: Titration: 06/03/24 13:00 Dose: 0.27 mcg/kg/min, 35.488 mls/hr Documented By: Titration: 06/03/24 12:55 Dose: 0.25 mcg/kg/min, 32.859 mls/hr Documented By: Titration: 06/03/24 12:25 Dose: 0.23 mcg/kg/min, 30.231 mls/hr Documented By: Titration: 06/03/24 12:20 Dose: 0.21 mcg/kg/min, 27.602 mls/hr Documented By: Titration: 06/03/24 12:00 Dose: 0.19 mcg/kg/min, 24.973 mls/hr Documented By: Titration: 06/03/24 11:00 Dose: 0.17 mcg/kg/min, 22.344 mls/hr Documented By: Titration: 06/03/24 10:40 Dose: 0.17 mcg/kg/min, 22.344 mls/hr Documented By: Titration: 06/03/24 10:30 Dose: 0.15 mcg/kg/min, 19.716 mls/hr Documented By: Titration: 06/03/24 10:15 Dose: 0.13 mcg/kg/min, 17.087 mls/hr Documented By: Titration: 06/03/24 10:00 Dose: 0.11 mcg/kg/min, 14.458 mls/hr Documented By: Titration: 06/03/24 09:55 Dose: 0.09 mcg/kg/min, 11.829 mls/hr Documented By: Titration: 06/03/24 09:45 Dose: 0.07 mcg/kg/min, 9.201 mls/hr Documented By: Admin: 06/03/24 09:40 Dose: 0.05 mcg/kg/min, 6.572 mls/hr Documented By: VL Levofloxacin/Dextrose (Levaquin Ivpb) 500 mg in 100 mls @ 100 mls/hr IV Q48H XOCHITL Stop: 06/13/24 18:29 Last Admin: 06/10/24 17:51 Dose: 100 mls/hr Documented By: Infusion: 06/08/24 20:00 Dose: Infused Documented By: Admin: 06/08/24 18:05 Dose: 100 mls/hr Documented By: Infusion: 06/06/24 19:17 Dose: Infused Documented By: Admin: 06/06/24 18:17 Dose: 100 mls/hr Documented By: RH Albumin Human (Albuminar-25 Ivpb) 25 gm in 100 mls @ 100 mls/min IV PRN PRN PRN Reason: DIALYSIS Last Infusion: 06/07/24 08:32 Dose: Infused Documented By: Admin: 06/07/24 08:27 Dose: 100 mls/min Documented By: Infusion: 06/06/24 10:14 Dose: Infused Documented By: Admin: 06/06/24 10:13 Dose: 100 mls/min Documented By: MGD(2) Propofol (Diprivan Ivpb) 1,000 mg in 100 mls @ 2.025 mls/hr IV .Q24H PRN; Protocol PRN Reason: PER PROTOCOL Stop: 07/06/24 08:54 Last Titration: 06/08/24 13:28 Dose: 0 mcg/kg/min, 0 mls/hr Documented By: Titration: 06/08/24 12:50 Dose: 0 mcg/kg/min, 0 mls/hr Documented By: Titration: 06/08/24 12:17 Dose: 25 mcg/kg/min, 10.125 mls/hr Documented By: Titration: 06/08/24 12:00 Dose: 25 mcg/kg/min, 10.125 mls/hr Documented By: Titration: 06/08/24 11:00 Dose: 25 mcg/kg/min, 10.125 mls/hr Documented By: Titration: 06/08/24 10:00 Dose: 25 mcg/kg/min, 10.125 mls/hr Documented By: Titration: 06/08/24 09:46 Dose: 25 mcg/kg/min, 10.125 mls/hr Documented By: Titration: 06/08/24 09:00 Dose: 25 mcg/kg/min, 10.125 mls/hr Documented By: Titration: 06/08/24 08:00 Dose: 25 mcg/kg/min, 10.125 mls/hr Documented By: Titration: 06/08/24 07:00 Dose: 25 mcg/kg/min, 10.125 mls/hr Documented By: Titration: 06/08/24 06:00 Dose: 25 mcg/kg/min, 10.125 mls/hr Documented By: Titration: 06/08/24 06:00 Dose: 25 mcg/kg/min, 10.125 mls/hr Documented By: Admin: 06/08/24 05:53 Dose: 25 mcg/kg/min, 10.125 mls/hr Documented By: RH Co-signed By: CMN Titration: 06/08/24 05:53 Dose: Infused Documented By: RH Co-signed By: CMN Titration: 06/08/24 05:00 Dose: 25 mcg/kg/min, 10.125 mls/hr Documented By: RH Co-signed By: CMN Titration: 06/08/24 04:00 Dose: 25 mcg/kg/min, 10.125 mls/hr Documented By: RH Co-signed By: CMN Titration: 06/08/24 03:00 Dose: 25 mcg/kg/min, 10.125 mls/hr Documented By: Titration: 06/08/24 02:00 Dose: 25 mcg/kg/min, 10.125 mls/hr Documented By: Titration: 06/08/24 01:00 Dose: 25 mcg/kg/min, 10.125 mls/hr Documented By: Titration: 06/08/24 00:00 Dose: 25 mcg/kg/min, 10.125 mls/hr Documented By: Titration: 06/07/24 23:00 Dose: 25 mcg/kg/min, 10.125 mls/hr Documented By: Titration: 06/07/24 22:00 Dose: 25 mcg/kg/min, 10.125 mls/hr Documented By: Titration: 06/07/24 21:00 Dose: 25 mcg/kg/min, 10.125 mls/hr Documented By: Admin: 06/07/24 20:09 Dose: 25 mcg/kg/min, 10.125 mls/hr Documented By: RH Co-signed By: ZP Titration: 06/07/24 20:09 Dose: Infused Documented By: RH Co-signed By: ZP Titration: 06/07/24 20:00 Dose: 25 mcg/kg/min, 10.125 mls/hr Documented By: RH Co-signed By: ZP Titration: 06/07/24 19:00 Dose: 25 mcg/kg/min, 10.125 mls/hr Documented By: Titration: 06/07/24 18:00 Dose: 25 mcg/kg/min, 10.125 mls/hr Documented By: Titration: 06/07/24 17:00 Dose: 25 mcg/kg/min, 10.125 mls/hr Documented By: Titration: 06/07/24 16:00 Dose: 25 mcg/kg/min, 10.125 mls/hr Documented By: Titration: 06/07/24 15:00 Dose: 25 mcg/kg/min, 10.125 mls/hr Documented By: Titration: 06/07/24 14:00 Dose: 25 mcg/kg/min, 10.125 mls/hr Documented By: Titration: 06/07/24 13:00 Dose: 25 mcg/kg/min, 10.125 mls/hr Documented By: Titration: 06/07/24 12:00 Dose: 25 mcg/kg/min, 10.125 mls/hr Documented By: Admin: 06/07/24 11:50 Dose: 25 mcg/kg/min, 10.125 mls/hr Documented By: AT Co-signed By: AG Titration: 06/07/24 11:50 Dose: Infused Documented By: AT Co-signed By: AG Titration: 06/07/24 11:00 Dose: 25 mcg/kg/min, 10.125 mls/hr Documented By: Titration: 06/07/24 10:00 Dose: 25 mcg/kg/min, 10.125 mls/hr Documented By: Titration: 06/07/24 09:00 Dose: 25 mcg/kg/min, 10.125 mls/hr Documented By: Titration: 06/07/24 08:00 Dose: 25 mcg/kg/min, 10.125 mls/hr Documented By: Titration: 06/07/24 07:00 Dose: 25 mcg/kg/min, 10.125 mls/hr Documented By: Titration: 06/07/24 06:00 Dose: 25 mcg/kg/min, 10.125 mls/hr Documented By: Titration: 06/07/24 05:00 Dose: 25 mcg/kg/min, 10.125 mls/hr Documented By: Admin: 06/07/24 04:25 Dose: 25 mcg/kg/min, 10.125 mls/hr Documented By: RH Co-signed By: HARTMANN Titration: 06/07/24 04:25 Dose: Infused Documented By: Titration: 06/07/24 04:00 Dose: 25 mcg/kg/min, 10.125 mls/hr Documented By: Titration: 06/07/24 03:00 Dose: 25 mcg/kg/min, 10.125 mls/hr Documented By: Titration: 06/07/24 02:00 Dose: 25 mcg/kg/min, 10.125 mls/hr Documented By: Titration: 06/07/24 01:00 Dose: 25 mcg/kg/min, 10.125 mls/hr Documented By: Titration: 06/07/24 00:00 Dose: 25 mcg/kg/min, 10.125 mls/hr Documented By: Titration: 06/06/24 23:00 Dose: 25 mcg/kg/min, 10.125 mls/hr Documented By: Titration: 06/06/24 22:00 Dose: 25 mcg/kg/min, 10.125 mls/hr Documented By: Titration: 06/06/24 21:00 Dose: 25 mcg/kg/min, 10.125 mls/hr Documented By: Titration: 06/06/24 20:00 Dose: 25 mcg/kg/min, 10.125 mls/hr Documented By: Titration: 06/06/24 19:00 Dose: 25 mcg/kg/min, 10.125 mls/hr Documented By: Admin: 06/06/24 18:18 Dose: 25 mcg/kg/min, 10.125 mls/hr Documented By: RH Co-signed By: GE Titration: 06/06/24 18:18 Dose: Infused Documented By: RH Co-signed By: GE Titration: 06/06/24 18:00 Dose: 25 mcg/kg/min, 10.125 mls/hr Documented By: RH Co-signed By: GE Titration: 06/06/24 17:00 Dose: 25 mcg/kg/min, 10.125 mls/hr Documented By: Titration: 06/06/24 16:00 Dose: 25 mcg/kg/min, 10.125 mls/hr Documented By: Titration: 06/06/24 15:00 Dose: 25 mcg/kg/min, 10.125 mls/hr Documented By: Titration: 06/06/24 14:00 Dose: 25 mcg/kg/min, 10.125 mls/hr Documented By: Titration: 06/06/24 13:00 Dose: 25 mcg/kg/min, 10.125 mls/hr Documented By: Titration: 06/06/24 12:00 Dose: 25 mcg/kg/min, 10.125 mls/hr Documented By: Titration: 06/06/24 11:00 Dose: 25 mcg/kg/min, 10.125 mls/hr Documented By: Titration: 06/06/24 10:11 Dose: 25 mcg/kg/min, 10.125 mls/hr Documented By: Titration: 06/06/24 10:00 Dose: 30 mcg/kg/min, 12.15 mls/hr Documented By: Titration: 06/06/24 09:25 Dose: 30 mcg/kg/min, 12.15 mls/hr Documented By: Titration: 06/06/24 09:20 Dose: 25 mcg/kg/min, 10.125 mls/hr Documented By: Titration: 06/06/24 09:15 Dose: 20 mcg/kg/min, 8.1 mls/hr Documented By: Titration: 06/06/24 09:10 Dose: 15 mcg/kg/min, 6.075 mls/hr Documented By: Titration: 06/06/24 09:05 Dose: 10 mcg/kg/min, 4.05 mls/hr Documented By: Admin: 06/06/24 09:00 Dose: 5 mcg/kg/min, 2.025 mls/hr Documented By: AT Co-signed By: Bumetanide 20 mg/ IV (Miscellaneous Supplies) 80 mls @ 4 mls/hr IV .Q20H XOCHITL Stop: 06/12/24 05:10 Insulin Human Regular (Insulin Hum Regular 1 Unit/0.01 Ml (Per Unit)) 0 unit SC Q6HR XOCHITL; Protocol Stop: 07/04/24 17:59 Last Admin: 06/11/24 13:01 Dose: 1 unit Documented By: YESENIA Co-signed By: HAO Admin: 06/11/24 07:00 Dose: Not Given Documented By: LEAH Non-Admin Reason: Glucose, LOW Admin: 06/11/24 00:00 Dose: Not Given Documented By: LEAH Non-Admin Reason: Glucose, LOW Admin: 06/10/24 17:47 Dose: Not Given Documented By: KENNY Non-Admin Reason: Per Protocol Admin: 06/10/24 12:05 Dose: Not Given Documented By: KENNY Non-Admin Reason: Per Protocol Admin: 06/10/24 05:54 Dose: 1 unit Documented By: ELLEN Co-signed By: ELIF Admin: 06/10/24 00:09 Dose: Not Given Documented By: ELLEN Non-Admin Reason: Per Protocol Comments: Okay to hold per 2/T no TF running at this time. Admin: 06/09/24 19:08 Dose: Not Given Documented By: MGD Non-Admin Reason: Per Protocol Admin: 06/09/24 12:39 Dose: Not Given Documented By: MGD Non-Admin Reason: Per Protocol Admin: 06/09/24 06:33 Dose: Not Given Documented By: HARTMANN Non-Admin Reason: Per Protocol Admin: 06/09/24 00:01 Dose: 1 unit Documented By: SHAHBAZ Co-signed By: VALERIE Admin: 06/08/24 18:03 Dose: Not Given Documented By: JRR Non-Admin Reason: Per Protocol Admin: 06/08/24 11:37 Dose: 1 unit Documented By: JRR Co-signed By: CRISTINA Admin: 06/08/24 05:49 Dose: 1 unit Documented By: RH Co-signed By: ELLEN Admin: 06/08/24 00:47 Dose: 1 unit Documented By: RH Co-signed By: ELLEN Admin: 06/07/24 18:16 Dose: 1 unit Documented By: RH Co-signed By: HAO Admin: 06/07/24 11:50 Dose: 1 unit Documented By: AT Co-signed By: HAO Admin: 06/07/24 06:30 Dose: 1 unit Documented By: RH Co-signed By: Admin: 06/07/24 05:09 Dose: Not Given Documented By: RH Non-Admin Reason: Per Protocol Admin: 06/06/24 18:34 Dose: Not Given Documented By: RH Non-Admin Reason: Per Protocol Admin: 06/06/24 11:08 Dose: Not Given Documented By: AT Non-Admin Reason: Per Protocol Admin: 06/06/24 06:18 Dose: Not Given Documented By: RH Non-Admin Reason: Per Protocol Admin: 06/06/24 03:56 Dose: Not Given Documented By: RH Non-Admin Reason: Per Protocol Admin: 06/05/24 18:46 Dose: Not Given Documented By: ER Non-Admin Reason: Contraindicated Admin: 06/05/24 13:48 Dose: Not Given Documented By: ER Non-Admin Reason: bs 115 Admin: 06/05/24 05:54 Dose: Not Given Documented By: CMN Non-Admin Reason: Per Protocol Admin: 06/05/24 00:35 Dose: Not Given Documented By: CMN Non-Admin Reason: NPO Admin: 06/04/24 18:20 Dose: Not Given Documented By: MGD Non-Admin Reason: Per Protocol Lactulose (Lactulose Syrup 20 Gm/30 Ml Udc) 20 gm GT QDAY [facility], 1928[facility]1983; Protocol Stop: 07/04/24 21:59 Last Admin: 06/09/24 08:54 Dose: Not Given Documented By: MGD Non-Admin Reason: diarrhea Admin: 06/08/24 11:20 Dose: Not Given Documented By: JRR Non-Admin Reason: Duplicate Medication on eMAR Midodrine (Midodrine 5 Mg Tablet) 5 mg GT TID [facility], [facility]1983 Stop: 07/09/24 13:59 Last Admin: 06/11/24 05:20 Dose: 5 mg Documented By: Admin: 06/10/24 21:50 Dose: 5 mg Documented By: Admin: 06/10/24 13:09 Dose: 5 mg Documented By: Admin: 06/10/24 05:43 Dose: 5 mg Documented By: Admin: 06/09/24 21:01 Dose: 5 mg Documented By: ELLEN Comments: Still given 2/T titrating down on Levo. Admin: 06/09/24 13:46 Dose: 5 mg Documented By: MGSarah Pantoprazole Sodium (Pantoprazole Inj 40 Mg Vial) 40 mg IVP QDAY [facility], 1928–1983 Stop: 07/04/24 15:29 Last Admin: 06/11/24 08:30 Dose: 40 mg Documented By: MGSarah Admin: 06/10/24 08:34 Dose: 40 mg Documented By: Admin: 06/09/24 08:54 Dose: 40 mg Documented By: Admin: 06/08/24 08:24 Dose: 40 mg Documented By: Admin: 06/07/24 08:34 Dose: 40 mg Documented By: Admin: 06/06/24 11:28 Dose: 40 mg Documented By: Admin: 06/05/24 08:58 Dose: 40 mg Documented By: Admin: 06/04/24 16:38 Dose: 40 mg Documented By: MGSarah Pharmacy Consult (Pharmacy Renal Dose Adjustment 1 Ea) 1 each XX PRN PRN PRN Reason: CONSULT Stop: 07/04/24 18:23 Sevelamer Carbonate (Sevelamer Carbonate 800 Mg Tablet) 800 mg PO TID [facility]1983 Stop: 07/10/24 07:44 Last Admin: 06/11/24 05:20 Dose: 800 mg Documented By: Admin: 06/10/24 21:50 Dose: 800 mg Documented By: Admin: 06/10/24 13:09 Dose: 800 mg Documented By: Admin: 06/10/24 08:33 Dose: 800 mg Documented By: JRNicole Discontinued Medications Acetaminophen (Acetaminophen 120 Mg Supp) 120 mg [place] Q6HR PRN; Protocol PRN Reason: PAIN OR FEVER > 101 Stop: 06/30/24 10:18 Last Admin: 05/31/24 10:49 Dose: 120 mg Documented By: MGD Acetaminophen (Acetaminophen 325 Mg Tablet) 650 mg PO Q6HR PRN PRN Reason: FEVER >101 Stop: 07/01/24 10:02 Acetaminophen (Acetaminophen Lindsey 325 Mg/10 Ml Udc) 650 mg GT Q6HR PRN PRN Reason: FEVER >101 Stop: 07/01/24 10:02 Last Admin: 06/01/24 10:46 Dose: 650 mg Documented By: MGD Acetylcysteine (Acetylcysteine Rt Lindsey 10% 4 Ml Nebu) 3 ml INH Q4HRRT [facility], 1928–1983 Stop: 07/02/24 10:59 Last Admin: 06/03/24 14:23 Dose: Not Given Documented By: KENDAL Non-Admin Reason: Discontinued Admin: 06/03/24 07:27 Dose: 3 ml Documented By: Admin: 06/03/24 02:41 Dose: Not Given Documented By: SRINI Non-Admin Reason: Medication Not Available Admin: 06/03/24 02:40 Dose: Not Given Documented By: SRINI Non-Admin Reason: Other, see note Admin: 06/02/24 22:22 Dose: 3 ml Documented By: Admin: 06/02/24 14:14 Dose: 3 ml Documented By: Admin: 06/02/24 11:24 Dose: 3 ml Documented By: GORDON Amiodarone HCl (Amiodarone Hcl 200 Mg Tablet) 200 mg PO BID [facility], [facility]1983 Stop: 07/03/24 14:59 Last Admin: 06/03/24 21:53 Dose: 200 mg Documented By: Admin: 06/03/24 16:36 Dose: 200 mg Documented By: LAKSHMI Amiodarone HCl (Amiodarone Hcl 200 Mg Tablet) 200 mg PO BID [facility], 1928[facility]1983 Stop: 07/05/24 20:59 Bisacodyl (Bisacodyl 10 Mg Supp) 10 mg [place] Q8H [facility], [facility]1983; Protocol Stop: 06/30/24 16:29 Last Admin: 06/02/24 07:56 Dose: Not Given Documented By: VL Non-Admin Reason: Discontinued Admin: 06/01/24 00:46 Dose: 10 mg Documented By: Admin: 05/31/24 18:02 Dose: 10 mg Documented By: RM Bisacodyl (Bisacodyl 10 Mg Supp) 10 mg KS QDAY [facility], [facility]1983; Protocol Stop: 07/02/24 08:59 Last Admin: 06/02/24 08:16 Dose: Not Given Documented By: VL Non-Admin Reason: Pt on GoLytely; x5 loose stools Bumetanide (Bumetanide Inj 0.25 Mg/Ml Vial 4 Ml) 3 mg IVP X1 ONE Stop: 06/07/24 14:03 Last Admin: 06/07/24 14:07 Dose: 3 mg Documented By: AT Bumetanide (Bumetanide Inj 0.25 Mg/Ml Vial 4 Ml) 3 mg IVP BID XOCHITL Stop: 07/09/24 13:14 Last Admin: 06/11/24 08:31 Dose: 3 mg Documented By: Admin: 06/10/24 21:50 Dose: 3 mg Documented By: Admin: 06/10/24 08:33 Dose: 3 mg Documented By: Admin: 06/09/24 20:59 Dose: 3 mg Documented By: Admin: 06/09/24 13:46 Dose: 3 mg Documented By: MGD Calcium Acetate (Calcium Acetate 667 Mg Tablet) 667 mg PO TIDWM [facility]–1983 Stop: 07/04/24 18:44 Last Admin: 06/09/24 19:38 Dose: Not Given Documented By: ZP Non-Admin Reason: Discontinued Admin: 06/07/24 18:00 Dose: 667 mg Documented By: Admin: 06/07/24 11:50 Dose: 667 mg Documented By: Admin: 06/07/24 08:34 Dose: 667 mg Documented By: Admin: 06/06/24 18:17 Dose: 667 mg Documented By: Admin: 06/06/24 11:28 Dose: 667 mg Documented By: Admin: 06/06/24 08:17 Dose: Not Given Documented By: AT Non-Admin Reason: not given pt on dialysis Admin: 06/05/24 18:45 Dose: 667 mg Documented By: Admin: 06/05/24 13:47 Dose: 667 mg Documented By: Admin: 06/05/24 08:58 Dose: 667 mg Documented By: Admin: 06/04/24 18:51 Dose: 667 mg Documented By: MGD Calcium Acetate (Calcium Acetate 667 Mg Tablet) 667 mg GT TIDWM XOCHITL Stop: 07/04/24 18:44 Citric Acid/Sodium Citrate (Citric Acid/Sodium Citr 15 Ml Udc (Bicitra)) 30 ml GT DAILY XOCHITL Stop: 07/05/24 08:59 Last Admin: 06/05/24 08:58 Dose: 30 ml Documented By: ER Alteplase, Recombinant 4 mg/ (Sterile Water 4.4 ml) 0 mg INDWELLCAT X1 ONE Stop: 06/05/24 17:49 Last Admin: 06/05/24 18:16 Dose: 4 mg Documented By: MM(2) Dextrose (Dextrose 50%-Water Inj 50 Ml Syringe) 25 ml IV Q15MIN PRN PRN Reason: BG 50-70 responsive npo pt Stop: 07/02/24 12:14 Last Admin: 06/02/24 23:41 Dose: 25 ml Documented By: Admin: 06/02/24 12:29 Dose: 25 ml Documented By: VL Dextrose (Dextrose 50%-Water Inj 50 Ml Syringe) 50 ml IV Q15MIN PRN PRN Reason: BG <50 OR BG <70 & pt unresponsive Stop: 07/02/24 12:14 Enoxaparin Sodium (Enoxaparin Sod Inj 40 Mg/0.4 Ml Syringe) 40 mg SC QDAY XOCHITL Stop: 06/15/24 08:59 Last Admin: 06/03/24 08:46 Dose: 40 mg Documented By: Admin: 06/02/24 08:13 Dose: 40 mg Documented By: Admin: 06/01/24 09:14 Dose: 40 mg Documented By: MGD Epoetin Baljinder (Epoetin Baljinder-Epbx 3,000 Unit/Ml Vial (Esrd)) 10,000 unit SC X1 ONE Stop: 06/05/24 18:01 Epoetin Baljinder (Epoetin Baljinder-Epbx Inj 10,000 Unit/Ml Vial (Esrd)) 10,000 unit SC X1 ONE Stop: 06/05/24 17:16 Last Admin: 06/05/24 18:16 Dose: 10,000 unit Documented By: MM(2) Epoetin Baljinder (Epoetin Baljinder-Epbx Inj 10,000 Unit/Ml Vial (Non-Esrd)) 10,000 unit SC X1 ONE Stop: 06/06/24 10:01 Last Admin: 06/06/24 10:51 Dose: 10,000 unit Documented By: MGD(2) Epoetin Baljinder (Epoetin Baljinder-Epbx Inj 10,000 Unit/Ml Vial (Esrd)) 10,000 unit SC X1 ONE Stop: 06/07/24 10:01 Last Admin: 06/07/24 09:29 Dose: 10,000 unit Documented By: AT Fentanyl Citrate (Fentanyl Cit Inj 50 Mcg/Ml Amp 2ml) 50 mcg IVP X1 ONE Stop: 06/06/24 08:55 Last Admin: 06/06/24 09:04 Dose: 50 mcg Documented By: AT Fentanyl Citrate (Fentanyl Cit Inj 50 Mcg/Ml Amp 2ml) Confirm Administered Dose 100 mcg .ROUTE .STK-MED ONE Stop: 06/06/24 08:58 Last Admin: 06/06/24 09:12 Dose: Not Given Documented By: AT Non-Admin Reason: Override Medication Glycerin (Glycerin, Adult 1 Ea Supp) 1 each KS X1 ONE Stop: 05/29/24 15:30 Last Admin: 05/29/24 23:24 Dose: 1 each Documented By: ELLEN Comments: Given late 2/T being ordered in ED during previous dayshift, and 2/T unavailability. Glycerin (Glycerin, Adult 1 Ea Supp) Confirm Administered Dose 1 each [place] .STK-MED ONE Stop: 05/29/24 23:08 Last Admin: 05/29/24 23:26 Dose: Not Given Documented By: ZP Non-Admin Reason: STOCK MED Heparin Sodium (Beef Lung) (Heparin Sod Lock Syr 100 Unit/Ml) 500 unit IV X1 ONE Stop: 06/05/24 15:35 Last Admin: 06/05/24 17:58 Dose: Not Given Documented By: ER Non-Admin Reason: HD in process Potassium Chloride (Kcl Ivpb) 10 meq in 100 mls @ 100 mls/hr IV X1 ONE Stop: 05/29/24 07:18 Last Infusion: 05/29/24 07:23 Dose: Infused Documented By: Admin: 05/29/24 06:23 Dose: 100 mls/hr Documented By: CB Sodium Chloride (Ns) 1,000 mls @ 999 mls/hr IV .Q1H1M ONE Stop: 05/29/24 07:56 Last Infusion: 05/29/24 08:30 Dose: Infused Documented By: Admin: 05/29/24 07:28 Dose: 999 mls/hr Documented By: EF Cefepime HCl 2 gm/ Sodium (Chloride) 50 mls @ 100 mls/hr IV X1 ONE Stop: 05/29/24 07:25 Last Infusion: 05/29/24 07:46 Dose: Infused Documented By: Admin: 05/29/24 07:16 Dose: 100 mls/hr Documented By: EF Acetaminophen (Ofirmev Inj) 1,000 mg in 100 mls @ 250 mls/hr IV NOW ONE Stop: 05/29/24 07:19 Last Infusion: 05/29/24 07:51 Dose: Infused Documented By: Admin: 05/29/24 07:27 Dose: 250 mls/hr Documented By: EF Vancomycin HCl 2,000 mg/ (Sodium Chloride) 500 mls @ 150 mls/hr IV X1 ONE Stop: 05/29/24 10:16 Last Infusion: 05/29/24 13:15 Dose: Infused Documented By: Admin: 05/29/24 09:55 Dose: 150 mls/hr Documented By: EF Sodium Chloride (Ns) 1,000 mls @ 75 mls/hr IV .[id number] XOCHITL Stop: 05/29/24 21:55 Last Admin: 05/29/24 09:24 Dose: 75 mls/hr Documented By: EF Piperacillin/Tazobactam/Dextrose (Zosyn) 50 mls @ 12.5 mls/hr IV Q8HR FORMERLY [facility], 1928–1983; Protocol Stop: 06/05/24 13:59 Last Infusion: 06/03/24 08:30 Dose: Infused Documented By: Admin: 06/02/24 05:30 Dose: 12.5 mls/hr Documented By: Infusion: 06/02/24 01:39 Dose: Infused Documented By: Admin: 06/01/24 21:39 Dose: 12.5 mls/hr Documented By: Infusion: 06/01/24 17:37 Dose: Infused Documented By: Admin: 06/01/24 13:37 Dose: 12.5 mls/hr Documented By: Infusion: 06/01/24 09:47 Dose: Infused Documented By: Admin: 06/01/24 05:47 Dose: 12.5 mls/hr Documented By: Infusion: 06/01/24 01:32 Dose: Infused Documented By: Admin: 05/31/24 21:32 Dose: 12.5 mls/hr Documented By: Infusion: 05/31/24 17:40 Dose: Infused Documented By: Admin: 05/31/24 13:40 Dose: 12.5 mls/hr Documented By: Infusion: 05/31/24 09:07 Dose: Infused Documented By: Admin: 05/31/24 05:07 Dose: 12.5 mls/hr Documented By: Infusion: 05/31/24 01:41 Dose: Infused Documented By: Admin: 05/30/24 21:20 Dose: 12.5 mls/hr Documented By: Infusion: 05/30/24 19:24 Dose: Infused Documented By: Admin: 05/30/24 14:52 Dose: 12.5 mls/hr Documented By: Infusion: 05/30/24 09:00 Dose: Infused Documented By: Admin: 05/30/24 05:00 Dose: 12.5 mls/hr Documented By: Infusion: 05/30/24 01:26 Dose: Infused Documented By: Admin: 05/29/24 21:26 Dose: 12.5 mls/hr Documented By: Infusion: 05/29/24 18:56 Dose: Infused Documented By: Admin: 05/29/24 14:56 Dose: 12.5 mls/hr Documented By: EF Piperacillin/Tazobactam/Dextrose (Zosyn) 50 mls @ 100 mls/hr IV X1 ONE Stop: 05/29/24 09:14 Last Infusion: 05/29/24 09:52 Dose: Infused Documented By: Admin: 05/29/24 09:11 Dose: 100 mls/hr Documented By: EF Potassium Chloride (Kcl Ivpb) 10 meq in 100 mls @ 100 mls/hr IV Q1H XOCHITL Stop: 05/29/24 10:37 Last Infusion: 05/29/24 11:38 Dose: Infused Documented By: Admin: 05/29/24 10:38 Dose: 100 mls/hr Documented By: Infusion: 05/29/24 10:30 Dose: Infused Documented By: Admin: 05/29/24 09:12 Dose: 100 mls/hr Documented By: EF Sodium Chloride (Ns) 1,000 mls @ 75 mls/hr IV .[id number] ONE Stop: 05/30/24 06:08 Last Infusion: 05/30/24 19:25 Dose: Infused Documented By: KAJoselo Admin: 05/29/24 20:40 Dose: 75 mls/hr Documented By: ELLEN Comments: Given late 2/T being ordered in the ED. Potassium Chloride (Kcl Ivpb) 10 meq in 100 mls @ 100 mls/hr IV Q1H XOCHITL Stop: 05/30/24 12:15 Last Admin: 05/30/24 18:17 Dose: Not Given Documented By: ER Non-Admin Reason: Cancelled by Provider Admin: 05/30/24 14:51 Dose: 50 mls/hr Documented By: Infusion: 05/30/24 14:51 Dose: Infused Documented By: Admin: 05/30/24 12:51 Dose: 50 mls/hr Documented By: Infusion: 05/30/24 10:36 Dose: Infused Documented By: Admin: 05/30/24 09:36 Dose: 100 mls/hr Documented By: ER Potassium Chloride 30 meq/ (Sodium Chloride) 1,015 mls @ 75 mls/hr IV .[id number] XOCHITL; Protocol Stop: 06/04/24 09:59 Last Admin: 05/31/24 19:46 Dose: Not Given Documented By: AD Non-Admin Reason: Discontinued Admin: 05/31/24 01:04 Dose: 75 mls/hr Documented By: Infusion: 05/31/24 00:02 Dose: Infused Documented By: Admin: 05/30/24 10:30 Dose: 75 mls/hr Documented By: ER Potassium Chloride (Kcl Ivpb) 10 meq in 100 mls @ 100 mls/hr IV Q1H XOCHITL Stop: 05/31/24 12:13 Last Admin: 05/31/24 11:39 Dose: 100 mls/hr Documented By: Infusion: 05/31/24 11:39 Dose: Infused Documented By: Admin: 05/31/24 10:41 Dose: 100 mls/hr Documented By: Infusion: 05/31/24 10:37 Dose: Infused Documented By: Admin: 05/31/24 09:37 Dose: 100 mls/hr Documented By: Infusion: 05/31/24 09:29 Dose: Infused Documented By: Admin: 05/31/24 08:29 Dose: 100 mls/hr Documented By: MGD Vancomycin/Sodium Chloride (Vancomycin/Ns 750 Mg Ivpb) 750 mg in 150 mls @ 120 mls/hr IV BID@1000,2200 XOCHITL; Protocol Stop: 06/07/24 12:14 Last Infusion: 06/02/24 09:30 Dose: Infused Documented By: Admin: 06/02/24 00:24 Dose: 120 mls/hr Documented By: WB Comments: Vanco trough 18.2. Dose is late due to just receiving the vanco trough. The machine to test the vanco trough was being maintainanced. Dr. Waller aware that medication is late due to waiting for the trough. OK to give now per physician. Infusion: 06/01/24 11:55 Dose: Infused Documented By: Admin: 06/01/24 10:40 Dose: 120 mls/hr Documented By: Infusion: 05/31/24 22:47 Dose: Infused Documented By: Admin: 05/31/24 21:32 Dose: 120 mls/hr Documented By: Infusion: 05/31/24 15:19 Dose: Infused Documented By: Admin: 05/31/24 14:04 Dose: 120 mls/hr Documented By: JOEL Sodium Chloride (Ns) 1,000 mls @ 999 mls/hr IV .Q1H1M ONE Stop: 05/31/24 13:08 Last Admin: 05/31/24 19:46 Dose: Not Given Documented By: AD Non-Admin Reason: Discontinued Sodium Chloride (Ns) 1,000 mls @ 999 mls/hr IV .Q1H1M ONE Stop: 05/31/24 13:08 Last Admin: 05/31/24 19:46 Dose: Not Given Documented By: AD Non-Admin Reason: Discontinued Lactated Ringer's (Lactated Ringers) 2,000 mls @ 999 mls/hr IV .Q2H1M ONE Stop: 05/31/24 14:56 Last Admin: 05/31/24 13:23 Dose: 999 mls/hr Documented By: RM Acetaminophen (Ofirmev Inj) 1,000 mg in 100 mls @ 250 mls/hr IV Q6HR XOCHITL Stop: 06/01/24 06:23 Acetaminophen (Ofirmev Inj) 1,000 mg in 100 mls @ 250 mls/hr IV X1 ONE Stop: 05/31/24 17:08 Last Admin: 05/31/24 16:53 Dose: 250 mls/hr Documented By: RM Potassium Phosphate (Pot Phos 15 Mmol In Ns 250 Ml) 15 mmol in 250 mls @ 62.5 mls/hr IV Q4H XOCHITL Stop: 06/01/24 15:09 Last Infusion: 06/02/24 07:56 Dose: Infused Documented By: Admin: 06/01/24 13:37 Dose: 62.5 mls/hr Documented By: Infusion: 06/01/24 11:35 Dose: Infused Documented By: Admin: 06/01/24 07:35 Dose: 62.5 mls/hr Documented By: MGD Potassium Chloride (Kcl Ivpb) 10 meq in 100 mls @ 100 mls/hr IV Q1H XOCHITL Stop: 06/01/24 12:53 Last Infusion: 06/02/24 07:56 Dose: Infused Documented By: Admin: 06/01/24 15:19 Dose: 100 mls/hr Documented By: Infusion: 06/01/24 14:39 Dose: Infused Documented By: Admin: 06/01/24 13:39 Dose: 100 mls/hr Documented By: MGD Magnesium Sulfate (Magnesium Sulfate Ivpb) 4 gm in 50 mls @ 12.5 mls/hr IV X1 ONE Stop: 06/02/24 06:20 Last Infusion: 06/02/24 07:55 Dose: Infused Documented By: Admin: 06/02/24 02:43 Dose: 12.5 mls/hr Documented By: WB Potassium Chloride (Kcl Ivpb) 10 meq in 100 mls @ 100 mls/hr IV Q1H XOCHITL Stop: 06/02/24 07:56 Last Infusion: 06/03/24 08:29 Dose: Infused Documented By: Admin: 06/02/24 09:15 Dose: 100 mls/hr Documented By: Infusion: 06/02/24 09:12 Dose: Infused Documented By: Admin: 06/02/24 08:12 Dose: 100 mls/hr Documented By: Infusion: 06/02/24 08:12 Dose: Infused Documented By: Admin: 06/02/24 06:25 Dose: 50 mls/hr Documented By: Infusion: 06/02/24 06:25 Dose: Infused Documented By: Admin: 06/02/24 04:17 Dose: 50 mls/hr Documented By: WB Potassium Phosphate (Pot Phos 15 Mmol In Ns 250 Ml) 15 mmol in 250 mls @ 62.5 mls/hr IV X1 ONE Stop: 06/02/24 08:14 Last Admin: 06/02/24 04:16 Dose: 62.5 mls/hr Documented By: WB Ampicillin Sodium/Sulbactam (Sodium 3 gm/ Sodium Chloride) 100 mls @ 200 mls/hr IV Q6HR XOCHITL Stop: 06/09/24 11:59 Last Admin: 06/03/24 05:18 Dose: 200 mls/hr Documented By: Infusion: 06/02/24 23:52 Dose: Infused Documented By: Admin: 06/02/24 23:22 Dose: 200 mls/hr Documented By: Infusion: 06/02/24 18:19 Dose: Infused Documented By: Admin: 06/02/24 17:49 Dose: 200 mls/hr Documented By: Infusion: 06/02/24 12:46 Dose: Infused Documented By: Admin: 06/02/24 12:16 Dose: 200 mls/hr Documented By: VL Potassium Phosphate (Pot Phos 15 Mmol In Ns 250 Ml) 15 mmol in 250 mls @ 62.5 mls/hr IV Q4H XOCHITL Stop: 06/02/24 17:48 Last Infusion: 06/03/24 08:30 Dose: Infused Documented By: Admin: 06/02/24 16:51 Dose: 62.5 mls/hr Documented By: Infusion: 06/02/24 14:11 Dose: Infused Documented By: Admin: 06/02/24 10:11 Dose: 62.5 mls/hr Documented By: LAKSHMI Amiodarone HCl/Dextrose (Nexterone Ivpb) 150 mg in 100 mls @ 600 mls/hr IV .Q10M ONE Stop: 06/02/24 12:24 Last Infusion: 06/03/24 08:30 Dose: Infused Documented By: Admin: 06/02/24 12:51 Dose: 600 mls/hr Documented By: LAKSHMI Amiodarone HCl/Dextrose (Nexterone Ivpb) 360 mg in 200 mls @ 33.333 mls/hr IV .Q6H ONE Stop: 06/02/24 18:24 Last Infusion: 06/03/24 08:30 Dose: Infused Documented By: Admin: 06/02/24 13:06 Dose: 33.333 mls/hr Documented By: LAKSHMI Amiodarone HCl/Dextrose (Nexterone Ivpb) 360 mg in 200 mls @ 16.667 mls/hr IV .Q12H XOCHITL Stop: 06/03/24 18:24 Last Admin: 06/02/24 19:48 Dose: Not Given Documented By: ELLEN Non-Admin Reason: Discontinued Potassium Acetate 40 meq/ (Dextrose) 520 mls @ 130 mls/hr IV X1 ONE Stop: 06/02/24 18:44 Last Infusion: 06/03/24 08:29 Dose: Infused Documented By: Admin: 06/02/24 17:35 Dose: 130 mls/hr Documented By: LAKSHMI Sodium Chloride (Ns) 1,000 mls @ 999 mls/hr IV .Q1H1M ONE Stop: 06/02/24 18:58 Last Infusion: 06/03/24 09:17 Dose: Infused Documented By: Admin: 06/02/24 18:10 Dose: 999 mls/hr Documented By: LAKSHMI Amiodarone HCl 200 mg/ (Dextrose) 104 mls @ 600 mls/hr IV X1 ONE Stop: 06/02/24 18:34 Last Admin: 06/02/24 19:47 Dose: Not Given Documented By: ZSocorro Non-Admin Reason: Duplicate order. Amio bolus given and scanned Comments: aware and okay to not give this dose. Amiodarone HCl/Dextrose (Nexterone Ivpb) 360 mg in 200 mls @ 33.333 mls/hr IV .Q6H XOCHITL Stop: 06/03/24 07:32 Last Infusion: 06/03/24 08:30 Dose: Infused Documented By: Admin: 06/03/24 02:17 Dose: 33.333 mls/hr Documented By: Infusion: 06/03/24 01:55 Dose: Infused Documented By: Admin: 06/02/24 19:54 Dose: 33.333 mls/hr Documented By: ZP Potassium Chloride (Kcl Ivpb) 10 meq in 100 mls @ 100 mls/hr IV Q1H XOCHITL Stop: 06/03/24 01:28 Last Infusion: 06/03/24 08:29 Dose: Infused Documented By: Admin: 06/03/24 00:55 Dose: 100 mls/hr Documented By: Infusion: 06/03/24 00:52 Dose: Infused Documented By: Admin: 06/02/24 23:52 Dose: 100 mls/hr Documented By: Infusion: 06/02/24 23:52 Dose: Infused Documented By: Admin: 06/02/24 22:56 Dose: 100 mls/hr Documented By: Infusion: 06/02/24 22:56 Dose: Infused Documented By: Admin: 06/02/24 21:56 Dose: 100 mls/hr Documented By: ZP Potassium Phosphate (Pot Phos 15 Mmol In Ns 250 Ml) 15 mmol in 250 mls @ 62.5 mls/hr IV X1 ONE Stop: 06/03/24 03:39 Last Infusion: 06/03/24 08:30 Dose: Infused Documented By: Admin: 06/03/24 00:32 Dose: 62.5 mls/hr Documented By: ZP Potassium Phosphate (Pot Phos 15 Mmol In Ns 250 Ml) 15 mmol in 250 mls @ 62.5 mls/hr IV Q4H XOCHITL Stop: 06/03/24 11:01 Last Admin: 06/03/24 08:43 Dose: 62.5 mls/hr Documented By: Infusion: 06/03/24 08:41 Dose: Infused Documented By: Admin: 06/03/24 04:41 Dose: 62.5 mls/hr Documented By: ELLEN Comments: Given late 2/T previous bag still running. Norepinephrine/Dextrose (Levophed In D5w 8mg/250ml) Confirm Administered Dose 8 mg in 250 mls @ ud IV .STK-MED ONE Stop: 06/03/24 09:29 Last Admin: 06/03/24 11:10 Dose: Not Given Documented By: LAKSHMI Non-Admin Reason: Override Medication Piperacillin/Tazobactam/Dextrose (Zosyn) 50 mls @ 100 mls/hr IV Q8HR XOCHITL Stop: 06/10/24 10:29 Last Admin: 06/03/24 11:41 Dose: Not Given Documented By: VL Non-Admin Reason: Discontinued Vancomycin/Sodium Chloride (Vancomycin/Ns 1 Gm Ivpb) 200 mls @ 120 mls/hr IV QDAY@1000 XOCHITL Stop: 06/10/24 10:44 Last Admin: 06/03/24 11:34 Dose: 120 mls/hr Documented By: LAKSHMI Piperacillin/Tazobactam/Dextrose (Zosyn) 50 mls @ 12.5 mls/hr IV Q8HR XOCHITL Stop: 06/10/24 10:29 Norepinephrine Bitartrate (Levophed In Ns 16mg/250ml) 16 mg in 250 mls @ 3.286 mls/hr IV .Q24H PRN; Protocol PRN Reason: PER protocol Stop: 07/03/24 11:12 Vasopressin/Sodium Chloride (Vasostrict/Ns Ivpb) 20 unit in 100 mls @ 9 mls/hr IV .Q11H7M PRN; Protocol PRN Reason: PER PROTOCOL Stop: 07/03/24 13:54 Amiodarone HCl/Dextrose (Nexterone Ivpb) 150 mg in 100 mls @ 600 mls/hr IV .Q10M ONE Stop: 06/04/24 12:46 Last Infusion: 06/04/24 20:50 Dose: Infused Documented By: Admin: 06/04/24 12:42 Dose: 600 mls/hr Documented By: YESENIA Amiodarone HCl/Dextrose (Nexterone Ivpb) 360 mg in 200 mls @ 33.333 mls/hr IV .Q6H ONE Stop: 06/04/24 18:36 Last Infusion: 06/04/24 20:50 Dose: Infused Documented By: Admin: 06/04/24 13:02 Dose: 33.333 mls/hr Documented By: MGD Amiodarone HCl/Dextrose (Nexterone Ivpb) 360 mg in 200 mls @ 16.667 mls/hr IV .Q12H XOCHITL Stop: 06/05/24 12:37 Last Admin: 06/05/24 09:00 Dose: 16.667 mls/hr Documented By: Infusion: 06/05/24 07:00 Dose: Infused Documented By: Admin: 06/04/24 19:00 Dose: 16.667 mls/hr Documented By: VALERIE Amiodarone HCl/Dextrose (Nexterone Ivpb) Confirm Administered Dose 150 mg in 100 mls @ ud IV .STK-MED ONE Stop: 06/04/24 12:36 Last Admin: 06/04/24 13:17 Dose: Not Given Documented By: MGD Non-Admin Reason: floor stock med Amiodarone HCl/Dextrose (Nexterone Ivpb) Confirm Administered Dose 360 mg in 200 mls @ ud IV .STK-MED ONE Stop: 06/04/24 12:36 Last Admin: 06/04/24 13:17 Dose: Not Given Documented By: MGD Non-Admin Reason: floor stock med Piperacillin/Tazobactam/Dextrose (Zosyn) 3.375 gm in 50 mls @ 12.5 mls/hr IV Q8HR XOCHITL; Protocol Stop: 06/11/24 15:11 Piperacillin/Tazobactam/Dextrose (Zosyn) 3.375 gm in 50 mls @ 100 mls/hr IV X1 ONE Stop: 06/04/24 15:59 Last Infusion: 06/04/24 20:49 Dose: Infused Documented By: Admin: 06/04/24 16:52 Dose: 100 mls/hr Documented By: MGD Vancomycin/Sodium Chloride (Vancomycin/Ns 1 Gm Ivpb) 200 mls @ 120 mls/hr IV QDAY@1000 XOCHITL; Protocol Stop: 06/11/24 15:44 Last Infusion: 06/04/24 20:49 Dose: Infused Documented By: Admin: 06/04/24 16:29 Dose: 120 mls/hr Documented By: MGD Potassium Chloride (Kcl Ivpb) 10 meq in 100 mls @ 100 mls/hr IV Q1H XOCHITL Stop: 06/04/24 21:06 Last Infusion: 06/04/24 20:49 Dose: Infused Documented By: Admin: 06/04/24 17:31 Dose: 100 mls/hr Documented By: MGD Levofloxacin/Dextrose (Levaquin Ivpb) 750 mg in 150 mls @ 100 mls/hr IV X1 ONE Stop: 06/04/24 19:52 Last Infusion: 06/04/24 20:50 Dose: Infused Documented By: Admin: 06/04/24 18:51 Dose: 100 mls/hr Documented By: MGD Potassium Chloride (Kcl Ivpb) 10 meq in 100 mls @ 100 mls/hr IV Q1H XOCHITL Stop: 06/05/24 12:39 Last Infusion: 06/06/24 11:00 Dose: Infused Documented By: Admin: 06/05/24 13:13 Dose: Not Given Documented By: ER Non-Admin Reason: Cancelled by Provider Admin: 06/05/24 13:13 Dose: Not Given Documented By: ER Non-Admin Reason: Cancelled by Provider Admin: 06/05/24 10:18 Dose: 100 mls/hr Documented By: Infusion: 06/05/24 09:59 Dose: Infused Documented By: Admin: 06/05/24 08:59 Dose: 100 mls/hr Documented By: ER Albumin Human (Albuminar-25 Ivpb) 25 gm in 100 mls @ 100 mls/hr IV QDAY XOCHITL Stop: 06/08/24 08:59 Albumin Human (Albuminar-25 Ivpb) 25 gm in 100 mls @ 100 mls/hr IV QDAY XOCHITL Stop: 06/08/24 08:59 Last Admin: 06/05/24 09:05 Dose: Not Given Documented By: ER Non-Admin Reason: Discontinued Albumin Human (Albuminar-25 Ivpb) 25 gm in 100 mls @ 100 mls/hr IV Q1H XOCHITL Stop: 06/05/24 11:14 Last Admin: 06/05/24 10:18 Dose: 100 mls/hr Documented By: Infusion: 06/05/24 10:05 Dose: Infused Documented By: Admin: 06/05/24 09:05 Dose: 100 mls/hr Documented By: ER Potassium Chloride (Kcl Ivpb) 10 meq in 100 mls @ 100 mls/hr IV Q1H XOCHITL Stop: 06/06/24 11:04 Last Infusion: 06/06/24 11:00 Dose: Infused Documented By: Admin: 06/06/24 10:45 Dose: Not Given Documented By: AT Non-Admin Reason: Discontinued Admin: 06/06/24 10:45 Dose: Not Given Documented By: AT Non-Admin Reason: Discontinued Admin: 06/06/24 08:19 Dose: 100 mls/hr Documented By: Infusion: 06/06/24 08:19 Dose: Infused Documented By: Admin: 06/06/24 07:27 Dose: 100 mls/hr Documented By: AT Amiodarone HCl/Dextrose (Nexterone Ivpb) 150 mg in 100 mls @ 582.524 mls/hr IV X1 ONE Stop: 06/06/24 08:58 Last Admin: 06/06/24 09:12 Dose: 582.524 mls/hr Documented By: AT Fentanyl Citrate (Sublimaze Inj 2,500 Mcg/250 Ml Bag) 2,500 mcg in 250 mls @ 2.5 mls/hr IV .Q24H PRN; Protocol PRN Reason: PER PROTOCOL Stop: 06/11/24 08:53 Last Titration: 06/08/24 16:13 Dose: 0 mcg/hr, 0 mls/hr Documented By: Titration: 06/08/24 15:35 Dose: 0 mcg/hr, 0 mls/hr Documented By: Titration: 06/08/24 15:14 Dose: 25 mcg/hr, 2.5 mls/hr Documented By: Titration: 06/08/24 15:00 Dose: 25 mcg/hr, 2.5 mls/hr Documented By: Titration: 06/08/24 14:00 Dose: 25 mcg/hr, 2.5 mls/hr Documented By: Titration: 06/08/24 13:32 Dose: 25 mcg/hr, 2.5 mls/hr Documented By: Titration: 06/08/24 13:00 Dose: 25 mcg/hr, 2.5 mls/hr Documented By: Titration: 06/08/24 12:13 Dose: 25 mcg/hr, 2.5 mls/hr Documented By: Titration: 06/08/24 12:00 Dose: 25 mcg/hr, 2.5 mls/hr Documented By: Titration: 06/08/24 11:00 Dose: 25 mcg/hr, 2.5 mls/hr Documented By: Titration: 06/08/24 10:00 Dose: 25 mcg/hr, 2.5 mls/hr Documented By: Titration: 06/08/24 09:00 Dose: 25 mcg/hr, 2.5 mls/hr Documented By: Titration: 06/08/24 08:58 Dose: 25 mcg/hr, 2.5 mls/hr Documented By: Titration: 06/08/24 08:00 Dose: 25 mcg/hr, 2.5 mls/hr Documented By: Titration: 06/08/24 07:00 Dose: 25 mcg/hr, 2.5 mls/hr Documented By: Titration: 06/08/24 06:00 Dose: 25 mcg/hr, 2.5 mls/hr Documented By: Titration: 06/08/24 05:00 Dose: 25 mcg/hr, 2.5 mls/hr Documented By: Titration: 06/08/24 04:00 Dose: 25 mcg/hr, 2.5 mls/hr Documented By: Titration: 06/08/24 03:00 Dose: 25 mcg/hr, 2.5 mls/hr Documented By: Titration: 06/08/24 02:00 Dose: 25 mcg/hr, 2.5 mls/hr Documented By: Titration: 06/08/24 01:00 Dose: 25 mcg/hr, 2.5 mls/hr Documented By: Titration: 06/08/24 00:00 Dose: 25 mcg/hr, 2.5 mls/hr Documented By: Titration: 06/07/24 23:00 Dose: 25 mcg/hr, 2.5 mls/hr Documented By: Titration: 06/07/24 22:00 Dose: 25 mcg/hr, 2.5 mls/hr Documented By: Titration: 06/07/24 21:00 Dose: 25 mcg/hr, 2.5 mls/hr Documented By: Titration: 06/07/24 20:00 Dose: 25 mcg/hr, 2.5 mls/hr Documented By: Titration: 06/07/24 19:00 Dose: 25 mcg/hr, 2.5 mls/hr Documented By: Titration: 06/07/24 18:00 Dose: 25 mcg/hr, 2.5 mls/hr Documented By: Titration: 06/07/24 17:00 Dose: 25 mcg/hr, 2.5 mls/hr Documented By: Titration: 06/07/24 16:00 Dose: 25 mcg/hr, 2.5 mls/hr Documented By: Titration: 06/07/24 15:00 Dose: 25 mcg/hr, 2.5 mls/hr Documented By: Titration: 06/07/24 14:00 Dose: 25 mcg/hr, 2.5 mls/hr Documented By: Titration: 06/07/24 13:00 Dose: 25 mcg/hr, 2.5 mls/hr Documented By: Titration: 06/07/24 12:00 Dose: 25 mcg/hr, 2.5 mls/hr Documented By: Titration: 06/07/24 11:00 Dose: 25 mcg/hr, 2.5 mls/hr Documented By: Titration: 06/07/24 10:00 Dose: 25 mcg/hr, 2.5 mls/hr Documented By: Titration: 06/07/24 09:00 Dose: 25 mcg/hr, 2.5 mls/hr Documented By: Titration: 06/07/24 08:00 Dose: 25 mcg/hr, 2.5 mls/hr Documented By: Titration: 06/07/24 07:00 Dose: 25 mcg/hr, 2.5 mls/hr Documented By: Titration: 06/07/24 06:00 Dose: 25 mcg/hr, 2.5 mls/hr Documented By: Titration: 06/07/24 05:00 Dose: 25 mcg/hr, 2.5 mls/hr Documented By: Titration: 06/07/24 04:00 Dose: 25 mcg/hr, 2.5 mls/hr Documented By: Titration: 06/07/24 03:00 Dose: 25 mcg/hr, 2.5 mls/hr Documented By: Titration: 06/07/24 02:00 Dose: 25 mcg/hr, 2.5 mls/hr Documented By: Titration: 06/07/24 01:00 Dose: 25 mcg/hr, 2.5 mls/hr Documented By: Titration: 06/07/24 00:00 Dose: 25 mcg/hr, 2.5 mls/hr Documented By: Titration: 06/06/24 23:00 Dose: 25 mcg/hr, 2.5 mls/hr Documented By: Titration: 06/06/24 22:00 Dose: 25 mcg/hr, 2.5 mls/hr Documented By: Titration: 06/06/24 21:00 Dose: 25 mcg/hr, 2.5 mls/hr Documented By: Titration: 06/06/24 20:00 Dose: 25 mcg/hr, 2.5 mls/hr Documented By: Titration: 06/06/24 19:00 Dose: 25 mcg/hr, 2.5 mls/hr Documented By: Titration: 06/06/24 18:00 Dose: 25 mcg/hr, 2.5 mls/hr Documented By: Titration: 06/06/24 17:00 Dose: 25 mcg/hr, 2.5 mls/hr Documented By: Titration: 06/06/24 16:00 Dose: 25 mcg/hr, 2.5 mls/hr Documented By: Titration: 06/06/24 15:00 Dose: 25 mcg/hr, 2.5 mls/hr Documented By: Titration: 06/06/24 14:00 Dose: 25 mcg/hr, 2.5 mls/hr Documented By: Titration: 06/06/24 13:00 Dose: 25 mcg/hr, 2.5 mls/hr Documented By: Titration: 06/06/24 12:00 Dose: 25 mcg/hr, 2.5 mls/hr Documented By: Titration: 06/06/24 11:00 Dose: 25 mcg/hr, 2.5 mls/hr Documented By: Titration: 06/06/24 10:00 Dose: 25 mcg/hr, 2.5 mls/hr Documented By: Admin: 06/06/24 09:00 Dose: 25 mcg/hr, 2.5 mls/hr Documented By: AT Co-signed By: MR Propofol (Diprivan Ivpb) Confirm Administered Dose 1,000 mg in 100 mls @ ud IV .STK-MED ONE Stop: 06/06/24 08:50 Last Admin: 06/06/24 09:06 Dose: Not Given Documented By: AT Non-Admin Reason: Override Medication Fentanyl Citrate (Sublimaze Inj 2,500 Mcg/250 Ml Bag) Confirm Administered Dose 2,500 mcg in 250 mls @ ud IV .STK-MED ONE Stop: 06/06/24 08:51 Last Admin: 06/06/24 09:06 Dose: Not Given Documented By: AT Non-Admin Reason: Override Medication Potassium Chloride (Kcl Ivpb) 10 meq in 100 mls @ 100 mls/hr IV Q1H [facility]–1983 Stop: 06/06/24 15:45 Last Admin: 06/06/24 13:55 Dose: Not Given Documented By: AT Non-Admin Reason: Discontinued Clindamycin/Sodium Chloride (Cleocin/Ns Ivpb) 600 mg in 50 mls @ 100 mls/hr IV Q6HR XOCHITL Stop: 06/14/24 17:59 Last Admin: 06/11/24 05:20 Dose: Not Given Documented By: LEAH Non-Admin Reason: no access Admin: 06/11/24 05:16 Dose: Not Given Documented By: BB Non-Admin Reason: no iv access Admin: 06/10/24 17:51 Dose: 100 mls/hr Documented By: Infusion: 06/10/24 12:35 Dose: Infused Documented By: Admin: 06/10/24 12:05 Dose: 100 mls/hr Documented By: Infusion: 06/10/24 06:12 Dose: Infused Documented By: Admin: 06/10/24 05:42 Dose: 100 mls/hr Documented By: Infusion: 06/10/24 00:37 Dose: Infused Documented By: Admin: 06/10/24 00:07 Dose: 100 mls/hr Documented By: Infusion: 06/09/24 19:38 Dose: Infused Documented By: Admin: 06/09/24 19:08 Dose: 100 mls/hr Documented By: Infusion: 06/09/24 13:14 Dose: Infused Documented By: Admin: 06/09/24 12:44 Dose: 100 mls/hr Documented By: Infusion: 06/09/24 07:10 Dose: Infused Documented By: Admin: 06/09/24 06:40 Dose: 100 mls/hr Documented By: Infusion: 06/09/24 00:31 Dose: Infused Documented By: Admin: 06/09/24 00:01 Dose: 100 mls/hr Documented By: Infusion: 06/08/24 18:35 Dose: Infused Documented By: Admin: 06/08/24 18:05 Dose: 100 mls/hr Documented By: Infusion: 06/08/24 11:55 Dose: Infused Documented By: Admin: 06/08/24 11:25 Dose: 100 mls/hr Documented By: Infusion: 06/08/24 06:19 Dose: Infused Documented By: Admin: 06/08/24 05:49 Dose: 100 mls/hr Documented By: Infusion: 06/08/24 00:51 Dose: Infused Documented By: Admin: 06/08/24 00:21 Dose: 100 mls/hr Documented By: Infusion: 06/07/24 18:30 Dose: Infused Documented By: Admin: 06/07/24 18:00 Dose: 100 mls/hr Documented By: RH Potassium Chloride (Kcl Ivpb) 100 mls @ 100 mls/hr IV Q1H XOCHITL Stop: 06/08/24 09:29 Last Admin: 06/08/24 08:38 Dose: 100 mls/hr Documented By: Infusion: 06/08/24 08:24 Dose: Infused Documented By: Admin: 06/08/24 07:24 Dose: 100 mls/hr Documented By: JRNicole Insulin Human Lispro (Insulin Lispro (Admelog) 1 Unit/0.01 Ml Unit) 4 unit SC X1 ONE Stop: 05/31/24 18:06 Last Admin: 05/31/24 19:45 Dose: Not Given Documented By: AD Non-Admin Reason: Wrong Patient Ipratropium [place] (Ipratropium Rt 0.5 Mg/ 2.5 Ml Nebu) 0.5 mg INH X1 ONE Stop: 05/31/24 12:46 Last Admin: 05/31/24 13:58 Dose: 0.5 mg Documented By: AA Lactulose (Lactulose Syrup 20 Gm/30 Ml Udc) 30 gm PO X1 ONE; Protocol Stop: 05/29/24 11:54 Last Admin: 05/29/24 13:47 Dose: Not Given Documented By: EF Non-Admin Reason: Cancelled by Provider Lactulose (Lactulose Syrup 20 Gm/30 Ml Udc) 30 gm GT X1 ONE; Protocol Stop: 05/29/24 11:54 Last Admin: 05/29/24 13:18 Dose: 30 gm Documented By: EF Lactulose (Lactulose Syrup 20 Gm/30 Ml Udc) 20 gm GT BID XOCHITL; Protocol Stop: 06/30/24 08:59 Last Admin: 06/03/24 08:46 Dose: Not Given Documented By: VL Non-Admin Reason: Contraindicated Comments: x4 BM Admin: 06/02/24 21:56 Dose: 20 gm Documented By: Admin: 06/02/24 08:14 Dose: Not Given Documented By: VL Non-Admin Reason: Pt with x5 loose stools noc shift; on GoLytel Admin: 06/01/24 20:31 Dose: Not Given Documented By: WB Non-Admin Reason: Other, see note Comments: Ok to holds tonights dose per Dr. Middleton. Pt had loose stools today x 6 Admin: 06/01/24 09:14 Dose: Not Given Documented By: MGD Non-Admin Reason: NPO Admin: 06/01/24 06:05 Dose: Not Given Documented By: AD Non-Admin Reason: instructions to not use PEG tube Admin: 05/31/24 08:29 Dose: 20 gm Documented By: MGD Lactulose (Lactulose Syrup 20 Gm/30 Ml Udc) 20 gm PO TID XOCHITL; Protocol Stop: 07/04/24 21:59 Last Admin: 06/05/24 06:10 Dose: 20 gm Documented By: Admin: 06/04/24 21:20 Dose: Not Given Documented By: CMN Non-Admin Reason: Contraindicated Lactulose (Lactulose Syrup 20 Gm/30 Ml Udc) 20 gm PO QDAY XOCHITL; Protocol Stop: 07/06/24 08:59 Last Admin: 06/07/24 08:34 Dose: 20 gm Documented By: Admin: 06/06/24 11:28 Dose: 20 gm Documented By: AT Levalbuterol HCl (Levalbuterol Rt 0.63 Mg/3 Ml Nebu) 0.63 mg INH Q4HRRT XOCHITL Stop: 06/28/24 10:59 Last Admin: 06/03/24 11:14 Dose: 0.63 mg Documented By: Admin: 06/03/24 07:27 Dose: 0.63 mg Documented By: Admin: 06/03/24 02:41 Dose: 0.63 mg Documented By: Admin: 06/02/24 22:22 Dose: 0.63 mg Documented By: Admin: 06/02/24 17:50 Dose: 0.63 mg Documented By: Admin: 06/02/24 14:14 Dose: 0.63 mg Documented By: JCarlos Admin: 06/02/24 11:24 Dose: 0.63 mg Documented By: JCarlos Admin: 06/02/24 07:20 Dose: 0.63 mg Documented By: JCarlos Admin: 06/02/24 03:30 Dose: 0.63 mg Documented By: FYRoxane Admin: 06/01/24 22:34 Dose: 0.63 mg Documented By: Admin: 06/01/24 19:20 Dose: 0.63 mg Documented By: Admin: 06/01/24 15:29 Dose: 0.63 mg Documented By: Admin: 06/01/24 10:18 Dose: 0.63 mg Documented By: Admin: 06/01/24 06:02 Dose: 0.63 mg Documented By: Admin: 06/01/24 03:24 Dose: 0.63 mg Documented By: Admin: 06/01/24 03:00 Dose: 0.63 mg Documented By: Admin: 05/31/24 18:36 Dose: 0.63 mg Documented By: Admin: 05/31/24 13:58 Dose: 0.63 mg Documented By: Admin: 05/31/24 10:05 Dose: 0.63 mg Documented By: Admin: 05/31/24 07:07 Dose: 0.63 mg Documented By: Admin: 05/31/24 03:00 Dose: 0.63 mg Documented By: Admin: 05/30/24 23:21 Dose: 0.63 mg Documented By: Admin: 05/30/24 19:24 Dose: 0.63 mg Documented By: Admin: 05/30/24 15:12 Dose: 0.63 mg Documented By: Admin: 05/30/24 10:52 Dose: 0.63 mg Documented By: Admin: 05/30/24 07:22 Dose: 0.63 mg Documented By: Admin: 05/30/24 03:07 Dose: 0.63 mg Documented By: Admin: 05/29/24 22:34 Dose: 0.63 mg Documented By: Admin: 05/29/24 19:04 Dose: 0.63 mg Documented By: Admin: 05/29/24 15:24 Dose: 0.63 mg Documented By: Admin: 05/29/24 11:45 Dose: 0.63 mg Documented By: YARITZA Lorazepam (Lorazepam 2 Mg/Ml Vial) 2 mg IVP X1 ONE Stop: 06/05/24 06:27 Last Admin: 06/05/24 06:33 Dose: 2 mg Documented By: VALERIE Metoclopramide HCl (Metoclopramide Inj 5 Mg/Ml Vial 2 Ml) 10 mg IVP Q6HR XOCHITL; Protocol Stop: 06/28/24 14:59 Last Admin: 06/02/24 12:16 Dose: 10 mg Documented By: Admin: 06/02/24 05:30 Dose: 10 mg Documented By: Admin: 06/01/24 23:55 Dose: 10 mg Documented By: Admin: 06/01/24 17:02 Dose: 10 mg Documented By: Admin: 06/01/24 13:44 Dose: 10 mg Documented By: Admin: 06/01/24 05:45 Dose: 10 mg Documented By: Admin: 06/01/24 00:45 Dose: 10 mg Documented By: Admin: 05/31/24 18:03 Dose: 10 mg Documented By: Admin: 05/31/24 13:59 Dose: 10 mg Documented By: Admin: 05/31/24 05:07 Dose: 10 mg Documented By: Admin: 05/30/24 23:48 Dose: 10 mg Documented By: Admin: 05/30/24 18:18 Dose: 10 mg Documented By: Admin: 05/30/24 11:30 Dose: 10 mg Documented By: Admin: 05/30/24 05:00 Dose: 10 mg Documented By: Admin: 05/30/24 01:44 Dose: 10 mg Documented By: Admin: 05/29/24 20:33 Dose: Not Given Documented By: ZP Non-Admin Reason: Given in the ED @16:57. Order is to give q6hr Admin: 05/29/24 16:57 Dose: 10 mg Documented By: EF Midazolam HCl (Midazolam Inj 1 Mg/Ml Vial 2 Ml) 2 mg IV X1 ONE Stop: 06/02/24 19:02 Last Admin: 06/02/24 19:48 Dose: Not Given Documented By: ZP Non-Admin Reason: Hold per MD. Morphine Sulfate (Morphine Sulf Inj 10 Mg/Ml Vial) 2 mg IVP X1 ONE Stop: 06/02/24 18:50 Last Admin: 06/02/24 19:00 Dose: 2 mg Documented By: VL Morphine Sulfate (Morphine Sulf Inj 10 Mg/Ml Vial) 1 mg IVP X1 ONE Stop: 06/06/24 02:39 Last Admin: 06/06/24 06:19 Dose: Not Given Documented By: RH Non-Admin Reason: Change of Condition Ondansetron HCl (Ondansetron Inj 2 Mg/Ml Inj 2 Ml) 4 mg IV Q6H PRN; Protocol PRN Reason: NAUSEA OR VOMITING Stop: 06/28/24 08:21 Ondansetron HCl (Ondansetron Inj 2 Mg/Ml Inj 2 Ml) 4 mg IV Q6HR PRN; Protocol PRN Reason: NAUSEA OR VOMITING Stop: 07/02/24 13:28 Pantoprazole Sodium (Pantoprazole Inj 40 Mg Vial) 40 mg IVP QDAY XOCHITL Stop: 06/28/24 08:59 Last Admin: 06/03/24 08:46 Dose: 40 mg Documented By: Admin: 06/02/24 08:14 Dose: 40 mg Documented By: Admin: 06/01/24 09:14 Dose: 40 mg Documented By: Admin: 05/31/24 08:30 Dose: 40 mg Documented By: Admin: 05/30/24 09:36 Dose: 40 mg Documented By: Admin: 05/29/24 09:11 Dose: 40 mg Documented By: EF Pharmacy Consult (Vancomycin Pharmacy To Dose 1 Each Each) 1 each IV QDAY PRN PRN Reason: PROTOCOL Stop: 06/30/24 11:59 Pharmacy Consult (Vancomycin Pharmacy To Dose 1 Each Each) 1 each IV QDAY PRN PRN Reason: RX Stop: 07/03/24 10:29 Pharmacy Consult (Pharmacy Renal Dose Adjustment 1 Ea) 1 each XX PRN PRN PRN Reason: CONSULT Stop: 07/04/24 15:22 Pharmacy Consult (Vancomycin Pharmacy To Dose 1 Each Each) 1 each IV QDAY PRN PRN Reason: PROTOCOL Stop: 07/04/24 15:44 Polyethylene Glycol/Electrolytes ([place]/Nahco3/Ed/Peg (Golytely) 4,000 Ml Btl) 4,000 ml GT X1 ONE Stop: 06/01/24 15:36 Last Admin: 06/01/24 15:46 Dose: 4,000 ml Documented By: NQ Potassium Chloride (Potassium Chloride 10% 20 Meq/15 Ml Udc) 40 meq GT X1 ONE Stop: 05/31/24 08:16 Last Admin: 05/31/24 08:31 Dose: 40 meq Documented By: MGD Potassium Chloride (Potassium Chloride 10% 20 Meq/15 Ml Udc) 40 meq GT X1 ONE Stop: 06/01/24 10:55 Last Admin: 06/01/24 13:43 Dose: 40 meq Documented By: MGD Potassium Chloride (Potassium Chloride 10% 20 Meq/15 Ml Udc) 20 meq GT X1 ONE Stop: 06/01/24 14:01 Last Admin: 06/01/24 17:02 Dose: 20 meq Documented By: NQ Potassium Chloride (Potassium Chloride 10% 20 Meq/15 Ml Udc) 40 meq GT X1 ONE Stop: 06/02/24 21:28 Last Admin: 06/02/24 21:56 Dose: 40 meq Documented By: ZP Potassium Chloride (Potassium Chloride 10% 20 Meq/15 Ml Udc) 60 meq GT X1 ONE Stop: 06/03/24 02:54 Last Admin: 06/03/24 03:50 Dose: 60 meq Documented By: ZP Potassium Chloride (Potassium Chloride 10% 20 Meq/15 Ml Udc) 40 meq GT X1 ONE Stop: 06/03/24 07:43 Last Admin: 06/03/24 08:46 Dose: 40 meq Documented By: VL Potassium Chloride (Potassium Chloride 10% 20 Meq/15 Ml Udc) 20 meq GT X1 ONE Stop: 06/03/24 10:01 Last Admin: 06/03/24 11:30 Dose: 20 meq Documented By: VL Potassium Chloride (Potassium Chloride 10% 20 Meq/15 Ml Udc) 40 meq GT X1 ONE Stop: 06/04/24 17:05 Last Admin: 06/04/24 17:30 Dose: 40 meq Documented By: MGD Potassium Chloride (Potassium Chloride 10% 20 Meq/15 Ml Udc) 20 meq GT X1 ONE Stop: 06/04/24 17:05 Last Admin: 06/04/24 17:31 Dose: 20 meq Documented By: MGD Potassium Chloride (Potassium Chloride 10% 20 Meq/15 Ml Udc) 40 meq GT X1 ONE Stop: 06/05/24 00:09 Last Admin: 06/05/24 00:37 Dose: 40 meq Documented By: CMN Potassium Chloride (Potassium Chloride 10% 20 Meq/15 Ml Udc) 40 meq GT X1 ONE Stop: 06/05/24 08:48 Last Admin: 06/05/24 08:58 Dose: 40 meq Documented By: ER Potassium Chloride (Potassium Chloride 10% 20 Meq/15 Ml Udc) 40 meq GT X1 ONE Stop: 06/08/24 07:06 Last Admin: 06/08/24 07:24 Dose: 40 meq Documented By: JRR Potassium Chloride (Potassium Chloride 10% 20 Meq/15 Ml Udc) 20 meq GT X1 ONE Stop: 06/10/24 07:33 Last Admin: 06/10/24 08:52 Dose: 20 meq Documented By: JRR Sodium Chloride (Sodium Chloride Rt 10% 15 Ml Nebu) 5 ml INH X1 ONE Stop: 05/31/24 12:50 Last Admin: 05/31/24 16:50 Dose: Not Given Documented By: RM Non-Admin Reason: RT Sodium Chloride (Sodium Chloride Rt 10% 15 Ml Nebu) 5 ml INH X1 ONE Stop: 06/06/24 08:52 Last Admin: 06/09/24 19:39 Dose: Not Given Documented By: ZP Non-Admin Reason: Discontinued see above Consultations Consultation(s) initiated? (list below): No Diagnosis Differential diagnosis abdominal pain: small bowel obstruction and other (bowel perforation, ascites, fecal impaction, sushma-colon) Most likely diagnosis given after review of the tests above:: see below Admission Indicated Admission indicated?: not indicated Admission Request Was there a request for admission?: No Disposition Plan Disposition Plan: other (specify) (Signed out to Dr. Gallegos at [address], remainder of labs, and final disposition.) Discharge Plan Plan Patient Disposition: Admit Acute Care w/in Hospital Problem List Clinical Impression: Fecal impaction, Colon obstruction, Sepsis, Stercoral colitis, Hypokalemia
--- NOTE | 2024-05-29 04:59 | XR_ITS ---
Examination: CT abdomen with intravenous contrast CT pelvis with intravenous contrast 2-D coronal reconstructions 2-D sagittal reconstructions Date and time of exam:May 29, 2024 0541 hrs. Indications: Abdominal distention and pain today. CTDI: vol (mGy) 10.71 DLP: (mGycm) 718 Technique: Multiple axial sections of the abdomen and pelvis have been obtained. 64 slice high-resolution scanner used. 3 mm axial sections have been obtained, post intravenous injection E 2-D sagittal, coronal reconstructions obtained. Low dose protocols were performed. One or more of the following dose reduction techniques were used; automated exposure control, adjustment of the mA and/or KV according to patient size, use of iterative reconstruction technique. Findings: Atelectasis versus mild pneumonia at the lung bases No focal liver or splenic lesion Orogastric tube in the stomach Marked air and stool distended colon with massive amounts of stool in the rectosigmoid region with thickening of the rectal wall The appendix is not diagnostically visualized Absent gallbladder No extrahepatic biliary tract dilatation No pancreatic mass No hydronephrosis or renal calculi Abdominal aortic calcification no aneurysmal dilatation Again a portion of the urinary bladder is in a right inguinal hernia Large fat-containing left inguinal hernia Prominent osteopenia Impression: Marked colonic distention with massive stool in the rectosigmoid region, thickening of the rectal wall, differential for the rectal wall thickening would include proctitis Right inguinal hernia again containing a portion of the right urinary bladder
--- NOTE | 2024-05-29 05:01 | XR_ITS ---
Examination: AP chest single view Technique one AP portable semiupright chest single view Exam date and time: May 29, 2024 0510 hrs. Comparison May 27, 2024 Findings: Reduced inspiratory effort Mild prominence of ventricle Atelectasis and/or pneumonia right base Elevated right hemidiaphragm again depicted Tracheostomy tube tip 6.5 cm above delmy Orogastric tube in the stomach Impression: Atelectasis and/or pneumonia right base
--- NOTE | 2024-05-29 05:08 | XR_ITS ---
Examination: Abdomen AP single view Technique: AP portable supine abdomen, single view Exam date and time: May 29, 2024 0510 hrs. Comparison May 22, 2024 Indications: Abdominal distention today post orogastric tube placement Findings: Massive stool in the rectosigmoid with marked distended colon Orogastric tube in the stomach This film does not include the hemidiaphragms Impression: Marked colonic distention with massive stool in the rectosigmoid
[2024-05-29 05:16] LABS: Lactate (Lactic Acid) 2.1 mMol/L (0.4-2.0)
[2024-05-29 05:21] LABS: Basophils % (Auto) 0 % (0-2.5); Eosinophils # (Auto) 0.1 Thou/mm3 (0.0-0.5); Eosinophils % (Auto) 1 % (0-10); Hematocrit 37.4 % (41.0-53.0); Hemoglobin 11.8 g/dL (13.5-16.0); Immature Granulocytes % (Auto) 0 % (0-0); Immature Granulocytes Auto 0.03 Thou/mm3 (0.00-0.00); Lymphocytes # (Auto) 0.6 Thou/mm3 (1.0-4.8); Lymphocytes % (Auto) 6 % (10-50); Mean Corpuscular HGB Conc 31.6 g/dl (31.0-37.0); Mean Corpuscular Hemoglobin 28.9 pg (25.0-35.0); Mean Corpuscular Volume 91 fL (80-100); Monocytes # (Auto) 0.6 Thou/mm3 (0.0-0.8); Monocytes % (Auto) 6 % (0-12); Neutrophils # (Auto) 7.8 Thou/mm3 (1.8-7.7); Neutrophils % (Auto) 86 % (37-80); Nucleated Red Blood Cell % 0 /100 WBC (0); Platelet Count 241 Thou/mm3 (140-440); RDW Standard Deviation 54.3 fL (35.1-43.9); Red Blood Count 4.09 Miln/mm3 (4.50-5.90); White Blood Count 9.1 Thou/mm3 (3.8-10.6)
[2024-05-29 06:16] LABS: Alanine Aminotransferase 23 U/L (10-49); Albumin, Serum 4.7 gm/dL (3.4-4.8); Albumin/Globulin Ratio 1.3 (1.2-2.2); Alkaline Phosphatase 189 U/L (46-116); Anion Gap 11 (7-16); Aspartate Amino Transferase 41 U/L (0-34); BUN/Creatinine Ratio 29 Ratio (12-20); Bilirubin,Total 0.5 mg/dL (0.3-1.2); Blood Urea Nitrogen 20 mg/dL (9-23); Calcium 9.7 mg/dL (8.3-10.6); Calcium (Corrected) 9.7 mg/dL (8.5-10.1); Carbon Dioxide 37.1 mMol/L (20.0-31.0); Chloride 90 mMol/L (98-107); Creatinine (Component) 0.7 mg/dL (0.6-1.3); Globulin 3.5 gm/dL (2.3-3.5); Glucose 119 mg/dL (74-106); Lipase 21 U/L (12-53); Osmolality,Calculated 279 (275-295); Potassium 3.3 mMol/L (3.4-5.1); Procalcitonin 0.07 ng/ml (0.0-0.49); Sodium 138 mMol/L (136-145); Total Protein 8.2 gm/dL (5.7-8.2); eGFR > 60 See Note
[2024-05-29] MEDS: POTASSIUM CHL 10 mEq IVPB 10 MEQ/100 ML BAG 100 MEQ IV ×3 (06:23→10:38)
--- NOTE | 2024-05-29 07:01 | PRELIM_ITS ---
CT scan of the abdomen and pelvis with intravenous contrast (axial sections with sagittal and coronal reformats) May 29, 2024 0541 hoursClinical History: Abdominal distensionComparison: May 25, 2024Findings: Bibasilar streaky atelectasis is present. The gallbladder is surgically absent. The pa ncreas is atrophic. There is no evidence of right hydronephrosis in the current images. The liver, sp libby, kidneys and adrenals are unremarkable.Again seen is marked distension of the rectosigmoid colo n with mild wall thickening of the rectum and sigmoid colon and mild pericolonic fat stranding. Moder ate amount of fecal material is present in the moderately distended colon with scattered air fluid le vels, worsening since prior. Fluid filled small bowel loops are seen. The appendix is not definitivel y visualized; however, there is no evidence of inflammatory process in the right lower quadrant to gonzales ggest appendicitis. A percutaneous gastrostomy tube is noted in place. The urinary bladder is incompl etely distended with apparent wall thickening. There is a large right inguinal hernia containing fat and part of urinary bladder. There is moderate left inguinal hernia containing fat and small segment of urinary bladder. There are bilateral large hydroceles. There is no free fluid or free air. The aor ta and its branches demonstrate atheromatous calcification without evidence of aneurysm. Degenerative changes are identified in the spine. Left pars interarticularis defect is noted at L5. There is diff use subcutaneous edema. Impression:Worsening of the prior fecal impaction and stercoral proctitis wit h evolving large bowel obstruction. Recommend clinical correlation and follow-up. Other findings as d escribed above. Discussion Details: Results verbally communicated to : Dr. Gallegos at 06:59 AM 05/29/20 24 Report Electronically Signed By: Angelina Araiza 05/29/2024 7:01:06 AM [EST]
[2024-05-29] MEDS: CEFEPIME INJ 2 GM in SODIUM CHLORIDE 0.9% (P) 50 ML IV (07:16)
--- NOTE | 2024-05-29 07:24 | EDNOTE_ITS ---
Emergency Room Addendum Addendum Narrative: I took over the care from Dr. Streeter at 6 AM on 05/29/2024, see her notes for complete H&P and ED course. Fever and tachycardia noted. I reviewed all diagnostic test results. My interpretation of the chest x-ray is equivocal infiltrates, official radi ology report is pending. My review of the abdominal CT report is fecal impaction and stercoral proctitis and large bowel obstruction. Blood tests remarkable for K 3.3 and lactic acid 2.1. At this point, diagnoses include fecal impaction and stercoral proctitis and large bowel obstruction and sepsis and hypokalemia. Treatment here included IV fluid and vancomycin and cefepime and KCl and Tylenol. No significant improvement noted subjectively and objectively. I discussed the case with our GI and our surgeon and our hospitalist. About the presentation and exam and diagnostics and treatments here. And need of further care in the hospital. Will accept the patient. Shlomo Gallegos MD
[2024-05-29] MEDS: ACETAMINOPHEN IVPB 1,000 MG/100 ML VIAL 250 MG IV (07:27)
[2024-05-29] MEDS: SODIUM CHLORIDE 0.9% 1000 ML 1,000 ML 999 ML IV (07:28)
[2024-05-29 08:14] LABS: Reflex Lactate? Y
[2024-05-29 08:41] LABS: Lactic Acid, 3 HR 1.2 mMol/L (0.4-2.0)
[2024-05-29] MEDS: PIPER/TAZO 3.375 GM 50 ML IV ×3 (09:11→21:26)
[2024-05-29] MEDS: PANTOPRAZOLE INJ 40 MG VIAL IVP (09:11)
[2024-05-29] MEDS: SODIUM CHLORIDE 0.9% 1000 ML 1,000 ML 75 ML IV ×2 (09:24→20:40)
[2024-05-29] MEDS: Vancomycin Inj 2,000 MG in SODIUM CHLORIDE 0.9% 500 ML 500 ML 150 MG IV (09:55)
--- NOTE | 2024-05-29 10:12 | PC.CC ---
Patient is a 73 year-old male who presents to the hospital for large bowle obstruction. Patient is not alert and oriented to self, location, and sitaution. ASW made telephone contact with patient's next of kin on demographics Kim Pretty; however there was no answer. ASW then made telephone contact with patient's son Flavio Pretty to complete initial assessment. Patient's son reports the patient lives at [facility] and has been there for approximately a month and a half. Patient's is Meli Sutton . Per son, the patient is not ambulatory and is not able to complete own ADLs he is max assist. Patients primary care provider is Juan Rolle. Upon discharge patient will be returning to [facility]. commissioner of relocation services to follow up with any discharge needs.
[2024-05-29] MEDS: LEVALBUTEROL RT 0.63 MG/3 ML NEBU INH ×4 (11:45→22:34)
--- NOTE | 2024-05-29 11:55 | PD.RESHP ---
Documentation for date of: 05/29/24 HPI History of Present Illness Chief complaint: constipation History of present illness: Patient is on chronic tracheostomy and chronic PEG tube, referred from subacute facility in view of constipation since 10 days. 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 Patient recently came to the ED on 05/24/2024 with similar complaints and received enema following which patient had a bowel movement and transferred back to the facility. Later patient was still found to have constipation for which Dr. Durant was consulted and patient received different bowel regimens and GoLytely with no much effect on constipation. As the patient is having progressive severe abdominal distention with constipation despite bowel regimens and GoLytely he was brought to the hospital today. No history of fever, vomitings. Dr. Durant was consulted and he tried to manually disimpact the stools but unsuccessful. Later Dr Cramer was consulted. ED Course: -Initial vitals were blood pressure 140/84 mmHg, pulse rate 101 bpm, respiratory rate 22/min, SpO2 98% on mechanical ventilator on AC/VC mode. -Labs significant for WBC 9.1, Hb 11.8, platelets 241, sodium 138, potassium 3.3, chloride 90, bicarb 37.1, lactate 1.2, AST 41, ALT 23, procalcitonin 0.07 -CT abdomen/pelvis showed markedly distended large bowel with rectal thickening, massive stool impaction in the rectosigmoid colon and right inguinal hernia with urinary bladder as content -In the ED, patient was given potassium, cefepime. -Patient was admitted for Past medical history: CVA, hypertension, hyperlipidemia, diabetes mellitus, chronic PEG, COPD Past surgical history: PEG tube placement Social history: Unknown Review of Systems Review of Systems ROS Unobtainable: unobtainable due to mental status Exam Vital Signs Temp Pulse Resp BP Pulse Ox O2 Del Method FiO2 98.9 F 101 H 20 136/79 H 96 Mechanical Ventilation 25 05/29/24 09:44 05/29/24 11:46 05/29/24 11:46 05/29/24 11:46 05/29/24 11:46 05/29/24 09:44 05/29/24 11:46 Narrative Exam General: Awake. Tracheostomy in situ and PEG tube in situ HEENT: Normocephalic, atraumatic, mucous membranes moist. Heart: Tachycardia. No murmurs noted Lungs: Transmitted breath sounds heard with occasional wheezing Abdomen: Severely distended, tense, no bowel sounds heard. Tender to touch Neurologic: patient able to move all 4 extremities. Noticed decreased movements on left side Extremities: Bilateral lower extremity pedal edema 2+ noted Skin: No rash or ecchymoses. Results: Labs 05/29/24 05:00 05/29/24 05:00 Labs: Short CBC 05/29/24 Range/Units 05:00 WBC 9.1 (3.8-10.6) Thou/mm3 Hgb 11.8 L (13.5-16.0) g/dL Hct 37.4 L (41.0-53.0) % Plt Count 241 (140-440) Thou/mm3 [facility] 05/29/24 05:00 Sodium 138 Potassium 3.3 L Chloride 90 L Carbon Dioxide 37.1 H BUN 20 Creatinine 0.7 Glucose 119 H Calcium 9.7 Liver Function 05/29/24 Range/Units 05:00 Total Bilirubin 0.5 (0.3-1.2) mg/dL AST 41 H (0-34) U/L ALT 23 (10-49) U/L Alkaline Phosphatase 189 H (46-116) U/L Albumin 4.7 (3.4-4.8) gm/dL Quality Measures Quality Measures none Advance care planning discussed with:: spouse Medications Home Medications and Allergies Home Medications ?Medication ?Instructions ?Recorded ?Confirmed ?Type labetalol 100 mg tablet 100 mg feeding tube BID 11/06/19 02/22/21 History Allergies Allergy/AdvReac Type Severity Reaction Status Date / Time No Known Allergies Allergy Verified 02/05/20 14:36 Visit Medications Sodium Chloride (Ns) 1,000 mls @ 75 mls/hr IV .[id number] XOCHITL Stop: 05/29/24 21:55 Last Admin: 05/29/24 09:24 Dose: 75 mls/hr Piperacillin/Tazobactam/Dextrose (Zosyn) 50 mls @ 12.5 mls/hr IV Q8HR XOCHITL; Protocol Stop: 06/05/24 13:59 Levalbuterol HCl (Levalbuterol Rt 0.63 Mg/3 Ml Nebu) 0.63 mg INH Q4HRRT XOCHITL Stop: 06/28/24 10:59 Last Admin: 05/29/24 11:45 Dose: 0.63 mg Ondansetron HCl (Ondansetron Inj 2 Mg/Ml Inj 2 Ml) 4 mg IV Q6H PRN; Protocol PRN Reason: NAUSEA OR VOMITING Stop: 06/28/24 08:21 Pantoprazole Sodium (Pantoprazole Inj 40 Mg Vial) 40 mg IVP QDAY [facility] Stop: 06/28/24 08:59 Last Admin: 05/29/24 09:11 Dose: 40 mg Discontinued Medications Potassium Chloride (Kcl Ivpb) 10 meq in 100 mls @ 100 mls/hr IV X1 ONE Stop: 05/29/24 07:18 Last Infusion: 05/29/24 07:23 Dose: Infused Sodium Chloride (Ns) 1,000 mls @ 999 mls/hr IV .Q1H1M ONE Stop: 05/29/24 07:56 Last Infusion: 05/29/24 08:30 Dose: Infused Cefepime HCl 2 gm/ Sodium (Chloride) 50 mls @ 100 mls/hr IV X1 ONE Stop: 05/29/24 07:25 Last Infusion: 05/29/24 07:46 Dose: Infused Acetaminophen (Ofirmev Inj) 1,000 mg in 100 mls @ 250 mls/hr IV NOW ONE Stop: 05/29/24 07:19 Last Infusion: 05/29/24 07:51 Dose: Infused Vancomycin HCl 2,000 mg/ (Sodium Chloride) 500 mls @ 150 mls/hr IV X1 ONE Stop: 05/29/24 10:16 Last Admin: 05/29/24 09:55 Dose: 150 mls/hr Piperacillin/Tazobactam/Dextrose (Zosyn) 50 mls @ 100 mls/hr IV X1 ONE Stop: 05/29/24 09:14 Last Infusion: 05/29/24 09:52 Dose: Infused Potassium Chloride (Kcl Ivpb) 10 meq in 100 mls @ 100 mls/hr IV Q1H XOCHITL Stop: 05/29/24 10:37 Last Admin: 05/29/24 10:38 Dose: 100 mls/hr Lactulose (Lactulose Syrup 20 Gm/30 Ml Udc) 30 gm PO X1 ONE; Protocol Stop: 05/29/24 11:54 Assessment & Plan Plan A 73-year-old male with past medical history of 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 Durant was following the patient and tried edema, GoLytely but patient still did not have any bowel movement since 5 days before the day of admission -On examination, patient was found to have very distended abdomen which is tense and noted absent bowel sounds -CT abdomen showed severely dilated large bowel with massive amount of stool in the rectosigmoid junction with rectal thickening. -Dr. Durant was consulted and he recommended surgical consult with no active interventions from his side -CBC showed mildly elevated WBC count 13.3, mild anemia. Potassium is 3.3 Plan -Patient is kept n.p.o. -NG tube was inserted for decompression -Started on IV fluids NS 75 mL/h -Dr Cramer was consulted and recommended soapsuds enema, lactulose through PEG tube -Started on IV Zosyn [05/29 to present] -Started on rectal suppositories, Fleet enema, metoclopramide -Dr Cramer recommended no surgery as of now -Will continue to monitor patient for bowel movements. # Hypokalemia -Patient was found to have potassium of 3.3 at the time of admission -Repleted with 30 mEq of IV potassium -Will continue to monitor electrolytes and replete accordingly # Chronic hypoxic respiratory failure, s/p tracheostomy -Patient was on mechanical ventilator -Saturations are maintained well and there is no tachypnea -Will continue mechanical ventilation # History of CVA with residual deficit # History of hyperlipidemia -Held antiplatelets for now in view of current medical condition. # History of diabetes mellitus -Patient is on insulin at the facility -HbA1c on 04/2024 is within normal limits -Glucose checks every 6 hourly as patient is kept on n.p.o. Hospital Maintenance: Dispo: Telemetry DVT ppx: Held in view of risk of perforation in the setting of large bowel obstruction GI ppx: Protonix Diet: N.p.o. IV lines: Peripheral Code status: Full code Patient plan of care was discussed with the attending physician, Dr. Deras and senior resident Dr. Jimi Shaikh, PGY1 Attending Provider Attestation/Addendum I reviewed labs, imaging, EKG, home medications and prior available records. Face to face evaluation was performed by me. I have personally examined the patient and discussed assessment and plan with the IM team. I reviewed the resident note and agree with the plan with exceptions as below. 73-year-old male with history of CVA complicated with aphasia, status post PEG tube, dementia, type 2 diabetes mellitus, insulin-dependent diabetes mellitus, who presented with a chief complaint of fecal impaction. Severe constipation with abdominal distention: GI was consulted 2 days prior to admission and tried manual disimpaction. Gave lactulose after which she had a bowel movement. Contacted GI: Recommended medical management and surgical consultation. Consulted surgery: Recommended to continue management of constipation. No indication for surgery at this time. Possible sepsis secondary to colitis: Started IV Zosyn. Continue IV fluids. Trend WBC. Tylenol as needed for fever. Follow-up blood culture.
[2024-05-29] MEDS: LACTULOSE SYRUP 20 GM/30 ML UDC 30 GM GT (13:18)
--- NOTE | 2024-05-29 14:12 | PC.NURSE ---
CALLED AND SPOKE WITH DR JOHNSON. INFORMED HER THAT THE SOAP SUDS ENEMA WAS DONE AND LACTULOSE WAS GIVEN PER DOCTORS ORDERS. INFORMED HER THAT PT'S ABD IS FIRM AND DISTENDED AND ONLY THE LIQUID FROM ENEMA IS COMING OUT. PT IS NOTED TO BE GRIMACING IN DISTRESS. PER DR JOHNSON SHE WILL CONTACT DR JAIMES AND COME DOWN TO SEE PT
--- NOTE | 2024-05-29 14:25 | PC.NURSE ---
DR JOHNSON AT BEDSIDE TO SPEAK WITH
--- NOTE | 2024-05-29 14:30 | PC.NURSE ---
DR JAIMES AT BEDSIDE TO SEE PT
--- NOTE | 2024-05-29 14:38 | XR_ITS ---
Examination: Testicular sonography complete TECHNIQUE: By resolution grayscale sonographic images testes, assessment arterial inflow venous outflow Doppler spectral analysis carful analysis Exam date and time: May 29, 2024 1553 hours INDICATIONS: Onset scrotal swelling today FINDINGS: Right testis 3.3 x 2.2 x 2.0 cm Epididymis 21 mm 12 mm right epididymal cyst Arterial flow to the testicle. No testicular mass Minimal hydrocele Scrotal wall thickness 2.8 cm Left testis 3.5 x 2.3 x 1.9 cm Epididymis 11 mm Arterial flow testicle. No testicular mass Thickened scrotal wall 3 cm IMPRESSION: No testicular torsion or testicular mass Marked infectious versus inflammatory thickening of the scrotal luna bilaterally, no scrotal abscess however
[2024-05-29] MEDS: METOCLOPRAMIDE INJ 5 MG/ML VIAL 2 ML 10 MG IVP (16:57)
--- NOTE | 2024-05-29 20:03 | PD.IMCONS ---
HPI Data of Consult Requesting Physician: Leonid Deras MD Primary Care Provider: Juan Rolle MD Consult Narrative Reason for consult: Abdominal distention History of present illness: Please refer to my previous notes from the SNF Patient was transferred from the SNF to ER because of the increasing abdominal distention I did see him yesterday under stool impaction by our previous examination in the SNF unit Patient has been on GoLytely without much results Imaging studies have shown stool impaction and colonic obstruction GoLytely is not working and the patient is not tolerating it very well The ER physician had called me I told him that at this point he might need colonoscopy recommended a surgical consultation cc:: cc: Leonid Deras MD Review of Systems Review of Systems ROS Unobtainable: unobtainable due to medical condition Past Medical History Surgical History OTHER SURGICAL HX: Well-documented previously Meds Home Medications and Allergies Home Medications ?Medication ?Instructions ?Recorded ?Confirmed ?Type labetalol 100 mg tablet 100 mg feeding tube BID 11/06/19 02/22/21 History Allergies Allergy/AdvReac Type Severity Reaction Status Date / Time No Known Allergies Allergy Verified 02/05/20 14:36 Exam Vital Signs Temp Pulse Resp BP Pulse Ox O2 Del Method FiO2 98.8 F 104 H 23 H 129/90 H 99 Trach Collar 28 05/29/24 17:02 05/29/24 19:04 05/29/24 19:04 05/29/24 17:02 05/29/24 19:04 05/29/24 17:02 05/29/24 19:04 Constitutional Comments: Chronically ill-appearing Routine Respiratory Exam Comments: Tracheostomy in place and ventilated via mechanical ventilation Routine Abdominal Exam Comments: Distended hypoactive bowel sounds Results Labs 05/29/24 05:00 05/29/24 05:00 Labs: Short CBC 05/29/24 Range/Units 05:00 WBC 9.1 (3.8-10.6) Thou/mm3 Hgb 11.8 L (13.5-16.0) g/dL Hct 37.4 L (41.0-53.0) % Plt Count 241 (140-440) Thou/mm3 BMP 05/29/24 05:00 Sodium 138 Potassium 3.3 L Chloride 90 L Carbon Dioxide 37.1 H BUN 20 Creatinine 0.7 Glucose 119 H Calcium 9.7 Liver Function 05/29/24 Range/Units 05:00 Total Bilirubin 0.5 (0.3-1.2) mg/dL AST 41 H (0-34) U/L ALT 23 (10-49) U/L Alkaline Phosphatase 189 H (46-116) U/L Albumin 4.7 (3.4-4.8) gm/dL Assessment and Plan Additional Assessment & Plan Additional Plan: # Distended abdomen due to colonic obstruction due to stool impaction GoLytely is not helpful Manual disimpaction as well as multiple Fleet enemas have not been helpful Recommend surgical consultation for a possible diverting colostomy Will follow the patient
[2024-05-29] MEDS: GLYCERIN, ADULT 1 EA SUPP 1 EACH PR (23:24)
--- NOTE | 2024-05-29 23:42 | EKG_ITS ---
[facility] Test Date: 2024-05-29 Pat Name: MARTHA ANDUJAR [facility] Gender: Male Mac Developer: RADHA : 1950 Requested By: Dominic Lawrence Order Number: [id number] Reading MD: Dominic Lawrence Measurements Intervals [place] Rate: 116 P: 107 [place]: 179 QRS: -20 QRSD: 86 T: 3 QT: 298 QTc: 414 Interpretive Statements SINUS TACHYCARDIA WITH OCCASIONAL SUPRAVENTRICULAR PREMATURE COMPLEXES INFERIOR MYOCARDIAL INFARCTION , OF INDETERMINATE AGE Compared to ECG 05/24/2024 17:04:12 Myocardial infarct finding now present T-wave abnormality no longer present /store/S0/[id number]/[id number].pdf
[2024-05-30] VITALS (12 sets, daily range): BP systolic 110–130; BP diastolic 77–86; PULSE 98–118; RESP 15–24; TEMP 36.8–37.8; O2SAT 92–100; BMI 24.6
[2024-05-30] MEDS: METOCLOPRAMIDE INJ 5 MG/ML VIAL 2 ML 10 MG IVP ×5 (01:44→23:48)
[2024-05-30] MEDS: LEVALBUTEROL RT 0.63 MG/3 ML NEBU INH ×6 (03:07→23:21)
[2024-05-30] MEDS: PIPER/TAZO 3.375 GM 50 ML IV ×3 (05:00→21:20)
[2024-05-30 05:43] LABS: Basophils % (Auto) 0 % (0-2.5); Eosinophils % (Auto) 0 % (0-10); Hematocrit 32.4 % (41.0-53.0); Hemoglobin 10.4 g/dL (13.5-16.0); Immature Granulocytes % (Auto) 0 % (0-0); Immature Granulocytes Auto 0.07 Thou/mm3 (0.00-0.00); Lymphocytes # (Auto) 0.4 Thou/mm3 (1.0-4.8); Lymphocytes % (Auto) 2 % (10-50); Mean Corpuscular HGB Conc 32.1 g/dl (31.0-37.0); Mean Corpuscular Hemoglobin 29.1 pg (25.0-35.0); Mean Corpuscular Volume 91 fL (80-100); Monocytes # (Auto) 1.4 Thou/mm3 (0.0-0.8); Monocytes % (Auto) 8 % (0-12); Neutrophils # (Auto) 15.4 Thou/mm3 (1.8-7.7); Neutrophils % (Auto) 89 % (37-80); Nucleated Red Blood Cell % 0 /100 WBC (0); Platelet Count 266 Thou/mm3 (140-440); RDW Standard Deviation 55.4 fL (35.1-43.9); Red Blood Count 3.57 Miln/mm3 (4.50-5.90); White Blood Count 17.3 Thou/mm3 (3.8-10.6)
[2024-05-30 06:49] LABS: Alanine Aminotransferase 17 U/L (10-49); Albumin, Serum 4.2 gm/dL (3.4-4.8); Albumin/Globulin Ratio 1.4 (1.2-2.2); Alkaline Phosphatase 152 U/L (46-116); Anion Gap 16 (7-16); Aspartate Amino Transferase 43 U/L (0-34); BUN/Creatinine Ratio 29 Ratio (12-20); Bilirubin,Total 0.4 mg/dL (0.3-1.2); Blood Urea Nitrogen 26 mg/dL (9-23); Calcium 8.8 mg/dL (8.3-10.6); Calcium (Corrected) 8.8 mg/dL (8.5-10.1); Carbon Dioxide 27.9 mMol/L (20.0-31.0); Chloride 98 mMol/L (98-107); Creatinine (Component) 0.9 mg/dL (0.6-1.3); Globulin 2.9 gm/dL (2.3-3.5); Glucose 105 mg/dL (74-106); Magnesium 2.1 mg/dL (1.6-2.6); Osmolality,Calculated 287 (275-295); Sodium 142 mMol/L (136-145); Total Protein 7.1 gm/dL (5.7-8.2); eGFR > 60 See Note
[2024-05-30 07:33] LABS: Potassium 2.2 mMol/L (3.4-5.1)
--- NOTE | 2024-05-30 08:22 | PD.HHPROG ---
Documentation for date of: 05/30/24 Subjective - Hospitalist Subjective Interval history: Patient was seen and examined at the bedside. 24-hour events, labs, imaging studies, and reports reviewed in details. Patient had 2 bowel movements. Potassium was 2.2 this morning. IV potassium was ordered. He has worsening leukocytosis. He is already on broad-spectrum antibiotics. Cultures are pending. He had ultrasound of the scrotum that showed significant thickening that might represent an infection versus inflammation without abscess. Patient was seen and examined at the bedside. 24-hour events, labs, imaging studies, and reports reviewed in details. Patient is unable to verbalize any complaints. He looks uncomfortable likely due to continuous constipation. Review of Systems Review of Systems Narrative Review of Systems: Review of systems: 12 point of system reviewed. All negative except as mentioned above. Exam Vital Signs Temp Pulse Resp BP Pulse Ox O2 Del Method FiO2 99.8 F 113 H 20 130/85 H 96 Trach Collar 28 05/30/24 04:00 05/30/24 07:24 05/30/24 07:24 05/30/24 04:00 05/30/24 07:24 05/30/24 04:00 05/30/24 07:24 Narrative General: Ill-appearing elderly male who is bedbound. Appears uncomfortable. Eyes: Pupils are equal and reactive to light bilaterally. HEENT: Atraumatic, normocephalic. No JVD noted. Trach in place. Cardiovascular: Normal S1 and S2. Mildly tachycardic but regular rhythm. No murmurs appreciated. No peripheral pitting edema noted. No JVD noted. Respiratory: No respiratory distress. Lungs are clear to auscultation bilaterally. No wheezing or crackles heard. Abdomen: Severely distended with decreased bowel sounds. PEG tube in place. Skin: No rash. Warm to touch. Musculoskeletal: No gross injuries. Able to move all 4 extremities. Neuro: He opens his eyes spontaneously. Left-sided deficits noted likely chronic from previous CVA. He is nonverbal. Psych: Normal affect and mood. Objective - Hospitalist Labs Diagram: 05/30/24 04:52 05/30/24 04:52 Labs: Laboratory Results - last 24 hr 05/29/24 05/30/24 08:34 04:52 WBC 17.3 H D RBC 3.57 L Hgb 10.4 L Hct 32.4 L MCV 91 MCH 29.1 MCHC 32.1 RDW Std Deviation 55.4 H Plt Count 266 Neut % (Auto) 89 H Lymph % (Auto) 2 L [place] % (Auto) 8 Eos % (Auto) 0 Baso % (Auto) 0 Neut # (Auto) 15.4 H Lymph # (Auto) 0.4 L [place] # (Auto) 1.4 H Eos # (Auto) 0.0 Baso # (Auto) 0.0 Immature Gran # (Auto) 0.07 H Absolute Nucleated RBC 0.00 Immature Gran % 0 Nucleated RBC % 0 Sodium 142 Potassium 2.2 L* D Chloride 98 Carbon Dioxide 27.9 Anion Gap 16 BUN 26 H Creatinine 0.9 Estim Creat Clear Calc Not Performed. 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 Durant was following the patient and tried edema, GoLytely but patient still did not have any bowel movement since 5 days before the day of admission -On examination, patient was found to have very distended abdomen which is tense and noted absent bowel sounds -CT abdomen showed severely dilated large bowel with massive amount of stool in the rectosigmoid junction with rectal thickening. -Dr. Durant was consulted and he recommended surgical consult with no active interventions from his side -CBC showed mildly elevated WBC count 13.3, mild anemia. Potassium is 3.3 Plan -Patient is kept n.p.o. -NG tube was inserted for decompression -Started on IV fluids NS 75 mL/h -Dr Cramer was consulted and recommended soapsuds enema, lactulose through PEG tube. Discussed with Dr. Wolf on 05/30: Recommended to continue enemas. No concern for rectal mass at this time. No indication for surgery at this time. -Started on IV Zosyn [05/29 to present] -Started on rectal suppositories, Fleet enema, metoclopramide -Will continue to monitor patient for bowel movements. # Hypokalemia -He is still hypokalemic. -Potassium was repleted. Follow-up BMP. -Will continue to monitor electrolytes and replete accordingly # Scrotal swelling Ordered testicular ultrasound that showed no torsion but significant swelling which could be consistent with inflammatory versus infectious process. No abscess found. Likely dependent edema and venous stasis. He is already on broad-spectrum antibiotics IV Zosyn. Discussed with nurse: Elevation of scrotum. # Chronic hypoxic respiratory failure, s/p tracheostomy -Patient was on mechanical ventilator -Saturations are maintained well and there is no tachypnea -Will continue mechanical ventilation # History of CVA with residual deficit # History of hyperlipidemia -Held antiplatelets for now as he is n.p.o. # History of diabetes mellitus -Patient is on insulin at the facility -HbA1c on 04/2024 is within normal limits -Glucose checks every 6 hourly as patient is kept on n.p.o. Hospital Maintenance: Dispo: Telemetry DVT ppx: Held in view of risk of perforation in the setting of large bowel obstruction GI ppx: Protonix Diet: N.p.o. IV lines: Peripheral Code status: Full code Time Spent with Patient Time: Total time spent is greater than 50% in coordination of care (as documented) at patient's floor/unit and/or counseling patient: Time with patient: 25 - 35 minutes Reason for Continued Stay Reason for continued stay: further monitoring Quality Measures Quality Measures none Advance care planning discussed with:: other
[2024-05-30] MEDS: POTASSIUM CHL 10 mEq IVPB 10 MEQ/100 ML BAG 100 MEQ IV (09:36)
[2024-05-30] MEDS: PANTOPRAZOLE INJ 40 MG VIAL IVP (09:36)
[2024-05-30] MEDS: POT CHL ADDITIVE 30 MEQ in SODIUM CHLORIDE 0.9% 1000 ML 1,000 ML 75 MEQ IV (10:30)
[2024-05-30] MEDS: POTASSIUM CHL 10 mEq IVPB 10 MEQ/100 ML BAG 50 MEQ IV ×2 (12:51→14:51)
[2024-05-30 13:34] LABS: Carcinoembryonic Antigen 4.6 ng/mL (0.0-5.0)
--- NOTE | 2024-05-30 13:46 | PD.SURCONS ---
HPI Consult details Consult date: 05/30/24 Reason for consultation narrative: Stool impaction and abdominal distention History of present illness: 73-year-old male with history of CVA resents of subacute facility status post tracheostomy and PEG tube placement. He has been noted to have abdominal distention with stool impaction. He presented to the emergency department a week ago with similar symptoms, GoLytely was given patient had multiple bowel movement and he was sent back to the group home. He was brought back yesterday with abdominal distention and constipation. I evaluated him in the emergency department yesterday after administration of enema and lactulose. During my exam patient noted to have abdominal distention however he was having bowel movements. Since then he has had 2 additional bowel movements, however he continues to have abdominal distention. Review of Systems Review of Systems ROS Unobtainable: unobtainable due to mental status Past Medical History Surgical History OTHER SURGICAL HX: Tracheostomy, PEG tube placement, cholecystectomy Meds Home Medications and Allergies Home Medications ?Medication ?Instructions ?Recorded ?Confirmed ?Type labetalol 100 mg tablet 100 mg feeding tube BID 11/06/19 02/22/21 History Allergies Allergy/AdvReac Type Severity Reaction Status Date / Time No Known Allergies Allergy Verified 02/05/20 14:36 Exam Vital Signs Temp Pulse Resp BP Pulse Ox O2 Del Method FiO2 99.3 F 110 H 20 128/77 100 Mechanical Ventilation 28 05/30/24 08:00 05/30/24 12:00 05/30/24 10:53 05/30/24 08:00 05/30/24 10:53 05/30/24 08:00 05/30/24 10:53 Constitutional Constitutional: no acute distress Routine Abdominal Exam Comments: Abdomen is soft and distended. PEG tube in place and intact Assessment & Plan Problem List (1) Fecal impaction: Status: Acute Additional Assessment Additional comments: He has significant fecal impaction and hypokalemia. Underlying problem of electrolyte imbalance and fecal impaction will not be cured with diverting colostomy Plan Manual disimpaction at bedside was performed and copious amount of soft stool was evacuated. Recommend aggressive correction of electrolytes, enema administration and lactulose to evacuate abundant amount of stool from his rectosigmoid area. Surgical intervention is not indicated at this time
--- NOTE | 2024-05-30 19:49 | PD.IMPROG ---
Documentation for date of: 05/30/24 Subjective Subjective Interval history: Surgical consult appreciated Conservative management Exam Vital Signs Temp Pulse Resp BP Pulse Ox O2 Del Method FiO2 98.5 F 102 H 20 130/85 H 99 Mechanical Ventilation 28 05/30/24 16:00 05/30/24 19:27 05/30/24 19:27 05/30/24 16:00 05/30/24 19:27 05/30/24 16:00 05/30/24 19:27 Constitutional Comments: Chronically ill Routine Abdominal Exam Comments: Distended abdomen positive bowel sounds Objective Labs 05/30/24 04:52 05/30/24 04:52 Labs: Laboratory Results - last 24 hr 05/30/24 05/30/24 04:52 12:41 WBC 17.3 H D RBC 3.57 L Hgb 10.4 L Hct 32.4 L MCV 91 MCH 29.1 MCHC 32.1 RDW Std Deviation 55.4 H Plt Count 266 Neut % (Auto) 89 H Lymph % (Auto) 2 L [place] % (Auto) 8 Eos % (Auto) 0 Baso % (Auto) 0 Neut # (Auto) 15.4 H Lymph # (Auto) 0.4 L [place] # (Auto) 1.4 H Eos # (Auto) 0.0 Baso # (Auto) 0.0 Immature Gran # (Auto) 0.07 H Absolute Nucleated RBC 0.00 Immature Gran % 0 Nucleated RBC % 0 Sodium 142 Potassium 2.2 L* D Chloride 98 Carbon Dioxide 27.9 Anion Gap 16 BUN 26 H Creatinine 0.9 Estim Creat Clear Calc Not Performed. eGFR > 60 BUN/Creatinine Ratio 29 H Glucose 105 Calculated Osmolality 287 Calcium 8.8 Corrected Calcium 8.8 Magnesium 2.1 Total Bilirubin 0.4 AST 43 H ALT 17 Alkaline Phosphatase 152 H D Total Protein 7.1 Albumin 4.2 D Globulin 2.9 Albumin/Globulin Ratio 1.4 Carcinoembryonic Ag 4.6 Impressions Impression: # Stool impaction leading to colonic obstruction Continue stool softeners and laxatives and see if the infection can be dislodged I have done a stool [facility]impaction at the [facility] So far this has not been helpful Assessment & Plan A&P Narrative # Distended abdomen due to colonic obstruction due to stool impaction GoLytely is not helpful Manual disimpaction as well as multiple Fleet enemas have not been helpful Recommend surgical consultation for a possible diverting colostomy Will follow the patient Time Spent With Patient Time: Total time spent is greater than 50% in coordination of care (as documented) at patient's floor/unit and/or counseling patient:
[2024-05-31] VITALS (35 sets, daily range): BP systolic 96–144; BP diastolic 60–98; PULSE 76–110; RESP 17–33; TEMP 37.1–39.7; O2SAT 89–100; BMI 24.6
[2024-05-31] MEDS: POT CHL ADDITIVE 30 MEQ in SODIUM CHLORIDE 0.9% 1000 ML 1,000 ML 75 MEQ IV (01:04)
[2024-05-31] MEDS: LEVALBUTEROL RT 0.63 MG/3 ML NEBU INH ×5 (03:00→18:36)
[2024-05-31] MEDS: PIPER/TAZO 3.375 GM 50 ML IV ×3 (05:07→21:32)
[2024-05-31] MEDS: METOCLOPRAMIDE INJ 5 MG/ML VIAL 2 ML 10 MG IVP ×3 (05:07→18:03)
[2024-05-31 06:47] LABS: Basophils # (Auto) 0.1 Thou/mm3 (0.0-0.2); Basophils % (Auto) 0 % (0-2.5); Eosinophils % (Auto) 0 % (0-10); Hematocrit 32.4 % (41.0-53.0); Immature Granulocytes % (Auto) 1 % (0-0); Immature Granulocytes Auto 0.19 Thou/mm3 (0.00-0.00); Lymphocytes # (Auto) 0.7 Thou/mm3 (1.0-4.8); Lymphocytes % (Auto) 3 % (10-50); Mean Corpuscular HGB Conc 30.9 g/dl (31.0-37.0); Mean Corpuscular Hemoglobin 29.1 pg (25.0-35.0); Mean Corpuscular Volume 94 fL (80-100); Monocytes # (Auto) 1.6 Thou/mm3 (0.0-0.8); Monocytes % (Auto) 7 % (0-12); Neutrophils # (Auto) 20.5 Thou/mm3 (1.8-7.7); Neutrophils % (Auto) 89 % (37-80); Nucleated Red Blood Cell % 0 /100 WBC (0); Platelet Count 247 Thou/mm3 (140-440); RDW Standard Deviation 56.8 fL (35.1-43.9); Red Blood Count 3.44 Miln/mm3 (4.50-5.90)
[2024-05-31 07:15] LABS: Magnesium 2.2 mg/dL (1.6-2.6)
[2024-05-31 08:12] LABS: Alanine Aminotransferase 19 U/L (10-49); Albumin, Serum 3.9 gm/dL (3.4-4.8); Albumin/Globulin Ratio 1.3 (1.2-2.2); Alkaline Phosphatase 133 U/L (46-116); Anion Gap 13 (7-16); Aspartate Amino Transferase 52 U/L (0-34); BUN/Creatinine Ratio 30 Ratio (12-20); Bilirubin,Total 0.4 mg/dL (0.3-1.2); Blood Urea Nitrogen 27 mg/dL (9-23); Calcium (Corrected) 9.1 mg/dL (8.5-10.1); Carbon Dioxide 27.3 mMol/L (20.0-31.0); Chloride 103 mMol/L (98-107); Creatinine (Component) 0.9 mg/dL (0.6-1.3); Estimated Creatinine Clearance 61.2 mL/min (>60); Glucose 95 mg/dL (74-106); Osmolality,Calculated 290 (275-295); Sodium 143 mMol/L (136-145); Total Protein 6.9 gm/dL (5.7-8.2); eGFR > 60 See Note
[2024-05-31 08:13] LABS: Potassium 2.3 mMol/L (3.4-5.1)
[2024-05-31] MEDS: POTASSIUM CHL 10 mEq IVPB 10 MEQ/100 ML BAG 100 MEQ IV ×4 (08:29→11:39)
[2024-05-31] MEDS: LACTULOSE SYRUP 20 GM/30 ML UDC GT (08:29)
[2024-05-31] MEDS: PANTOPRAZOLE INJ 40 MG VIAL IVP (08:30)
[2024-05-31] MEDS: POTASSIUM CHLORIDE 10% 20 MEQ/15 ML UDC 40 MEQ GT (08:31)
--- NOTE | 2024-05-31 09:13 | XR_ITS ---
Examination: AP chest single view Technique: Semiupright AP portable chest single view Exam date and time: 12/30/2023 0939 hrs. Comparison May 24, 2024 Indications: Low O2 saturation Findings: Interval extensive bilateral pneumonia, severe and diffuse in the left lung Tracheostomy tube tip 6 cm above delmy Air distended colon Impression: Interval extensive bilateral pneumonia
[2024-05-31 09:36] LABS: Base Excess 2 (-3-3); HCO3 30 mEq/L (20-26); Inspired Oxygen, FIO2 60 %; O2 Saturation 96 % (91-98); PCO2 68 mmHg (32.0-48.0); PO2 88 mmHg (83-108); pH, Arterial 7.25 (7.35-7.45)
[2024-05-31 09:37] LABS: Allen Test Performed/OK; Puncture Site Right Brachial
[2024-05-31 09:45] LABS: Lactate (Lactic Acid) 2.7 mMol/L (0.4-2.0)
--- NOTE | 2024-05-31 10:27 | EKG_ITS ---
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
[2024-05-31] MEDS: ACETAMINOPHEN 120 MG SUPP PR (10:49)
--- NOTE | 2024-05-31 11:04 | PD.ADDPROG ---
Addendum Progress Note Addendum Date of report being addended: 05/31/24 Narrative: Attending's attestation: I reviewed labs, imaging, EKG, home medications and prior available records. Face to face evaluation was performed by me. I have personally examined the patient and discussed assessment and plan with the IM team. I reviewed the resident note and agree with the plan with exceptions as below. History of CVA with left-sided deficits and aphasia Status post trach and PEG Chronic hypoxic respiratory failure Large bowel obstruction secondary to severe constipation Severe hypokalemia Leukocytosis, nonspecific Rapid response was called on 05/31 morning for worsening hypoxia. Patient was suctioned. FiO2 was increased. ABG and chest x-ray were ordered. Status post manual disimpaction by general surgery with large amount of stool. Will repeat manual disimpaction. Continue lactulose and enemas. Surgery and GI are following. Continue aggressive potassium repletion and monitor BMP. Trend WBC: Uptrending. Continue IV Zosyn. Follow-up cultures. Update: PEG tube was dislodged. Patient is already NPO. Will follow-up with GI. Medications to IV. Discussed with GI: Recommended to try to insert Godinez catheter at the PEG tube site. Chest x-ray showed worsening infiltrates on both lungs more on the left. Started IV vancomycin. Sent MRSA screening test. Continue IV Zosyn. A second rapid response was called for acute hypotension and respiratory distress. He had agonal breathing. Started bagging. Upgraded to ICU. Started IV fluids and IV vasopressors. Will discuss prognosis and goals of care with the family. He remains full code.
--- NOTE | 2024-05-31 12:41 | PC.NURSE ---
patient oxygen saturation 70, patient mottled , rapid response was called at this time.
[2024-05-31 12:42] LABS: Reflex Lactate? Y
--- NOTE | 2024-05-31 12:43 | PC.NURSE ---
1202- patient's blood pressure 58/33, patient still mottled ,agonal respiration, dry kiln burner called , dr. betancur and dr. dowling here order to transfer patient to icu .
[2024-05-31 12:48] LABS: Lactate (Lactic Acid) 1.4 mMol/L (0.4-2.0)
--- NOTE | 2024-05-31 12:48 | XR_ITS ---
Examination: AP chest single view Technique: AP portable supine chest single view Exam date and time: May 31, 2024 1326 hrs. Comparison May 31, 2024 Indications: Shortness of breath this week Findings: Again noted significant bilateral pneumonia Air distended colon Normal heart size Tracheostomy tube tip 6.2 cm above delmy Impression: Again noted extensive bilateral pneumonia
--- NOTE | 2024-05-31 12:49 | PC.NURSE ---
1130- patient has bloody secretion coming out from his mouth, dr. hawkins is aware.
[2024-05-31 12:51] LABS: Basophils # (Auto) 0.1 Thou/mm3 (0.0-0.2); Basophils % (Auto) 0 % (0-2.5); Eosinophils % (Auto) 0 % (0-10); Hematocrit 31.2 % (41.0-53.0); Hemoglobin 9.5 g/dL (13.5-16.0); Immature Granulocytes % (Auto) 1 % (0-0); Immature Granulocytes Auto 0.28 Thou/mm3 (0.00-0.00); Lymphocytes # (Auto) 0.7 Thou/mm3 (1.0-4.8); Lymphocytes % (Auto) 3 % (10-50); Mean Corpuscular HGB Conc 30.4 g/dl (31.0-37.0); Mean Corpuscular Hemoglobin 29.5 pg (25.0-35.0); Mean Corpuscular Volume 97 fL (80-100); Monocytes # (Auto) 1.1 Thou/mm3 (0.0-0.8); Monocytes % (Auto) 5 % (0-12); Neutrophils # (Auto) 20.1 Thou/mm3 (1.8-7.7); Neutrophils % (Auto) 90 % (37-80); Nucleated Red Blood Cell # 0.02 Thou/mm3 (0.00-0.00); Nucleated Red Blood Cell % 0 /100 WBC (0); Platelet Count 251 Thou/mm3 (140-440); RDW Standard Deviation 57.7 fL (35.1-43.9); Red Blood Count 3.22 Miln/mm3 (4.50-5.90); White Blood Count 22.3 Thou/mm3 (3.8-10.6)
[2024-05-31 13:16] LABS: Alanine Aminotransferase 15 U/L (10-49); Albumin, Serum 3.6 gm/dL (3.4-4.8); Albumin/Globulin Ratio 1.3 (1.2-2.2); Alkaline Phosphatase 131 U/L (46-116); Anion Gap 5 (7-16); Aspartate Amino Transferase 57 U/L (0-34); BUN/Creatinine Ratio 24 Ratio (12-20); Bilirubin,Total 0.2 mg/dL (0.3-1.2); Blood Urea Nitrogen 31 mg/dL (9-23); Calcium 8.4 mg/dL (8.3-10.6); Calcium (Corrected) 8.7 mg/dL (8.5-10.1); Carbon Dioxide 33.8 mMol/L (20.0-31.0); Chloride 106 mMol/L (98-107); Creatinine (Component) 1.3 mg/dL (0.6-1.3); Estimated Creatinine Clearance 42.4 mL/min (>60); Globulin 2.7 gm/dL (2.3-3.5); Glucose 101 mg/dL (74-106); Magnesium 2.4 mg/dL (1.6-2.6); Osmolality,Calculated 295 (275-295); Phosphorous 3.9 mg/dL (2.4-5.1); Potassium 3.5 mMol/L (3.4-5.1); Procalcitonin 0.34 ng/ml (0.0-0.49); Sodium 145 mMol/L (136-145); Total Protein 6.3 gm/dL (5.7-8.2); eGFR 58 See Note
[2024-05-31] MEDS: RINGERS LACTATED 1000 ML 2,000 ML 999 ML IV (13:23)
[2024-05-31] MEDS: IPRATROPIUM RT 0.5 MG/ 2.5 ML NEBU INH (13:58)
--- NOTE | 2024-05-31 14:00 | PD.RESEVENT ---
Documentation for date of: 05/31/24 Event Note Event Note: There was a rapid response this morning around 8 AM as patient is noted to have low saturations and breathing abnormally. Patient was found to have a temperature of 101 ?F, blood pressure 158/73 mmHg, pulse rate 98/min. FiO2 is increased to 100%. Stat ABG, chest x-ray, lactate was ordered. Chest x-ray showed severe bilateral pneumonia, lactate was 2.7, ABG showed mild respiratory acidosis for which respiratory rate was increased. Vancomycin was ordered in view of worsening bilateral pneumonia. Tylenol was given. Around 9 AM patient was noted to have peg tube displacement. Dr. Durant was called on phone and inserted Godinez catheter in the G-tube stoma as recommended by him. Family [son] was called and informed about patient current condition. Agreed to have goals of care discussion at 12 PM There was another rapid response around 12:30 PM, as patient is having low blood pressures with MAP 42 mmHg and abnormal breathing pattern on ventilator. Blood sugar was within normal limits. Dr. Stokes was consulted and patient was given 2 L of NS bolus following which patient was upgraded to ICU for further care. Family was informed about the condition and had a goals of care discussion with the entire family later. Patient plan of care was discussed with the attending physician, Dr. Deras
[2024-05-31] MEDS: VANCOMYCIN/NS 750 MG IVPB 750 MG/150 ML BAG 120 MG IV ×2 (14:04→21:32)
--- NOTE | 2024-05-31 14:14 | PD.RESPRO ---
Documentation for date of: 05/31/24 Subjective Subjective Interval history: Patient was seen and examined bedside. Per chart review, patient was noted to have 2 bowel movements since yesterday 1 PM. Abdomen was still tense and grossly distended. Patient was found to have hypokalemia and started on IV potassium replacement. There was a rapid response this morning around 8 AM as patient is noted to have low saturations and breathing abnormally. Patient was found to have a temperature of 101 ?F, blood pressure 158/73 mmHg, pulse rate 98/min. FiO2 is increased to 100%. Stat ABG, chest x-ray, lactate was ordered. Chest x-ray showed severe bilateral pneumonia, lactate was 2.7, ABG showed mild respiratory acidosis for which respiratory rate was increased. Vancomycin was ordered in view of worsening bilateral pneumonia. Tylenol was given. Around 9 AM patient was noted to have peg tube displacement. Dr. Durant was called on phone and inserted Godinez catheter in the G-tube stoma as recommended by him. Family [son] was called and informed about patient current condition. Agreed to have goals of care discussion at 12 PM There was another rapid response around 12:30 PM, as patient is having low blood pressures with MAP 42 mmHg and abnormal breathing pattern on ventilator. Blood sugar was within normal limits. Dr. Stokes was consulted and patient was given 2 L of NS bolus following which patient was upgraded to ICU for further care. Exam Vital Signs Temp Pulse Resp BP Pulse Ox O2 Del Method FiO2 99.9 F 101 H 31 H 110/66 100 Mechanical Ventilation 90 05/31/24 11:49 05/31/24 14:05 05/31/24 14:05 05/31/24 14:05 05/31/24 14:05 05/31/24 08:00 05/31/24 14:05 Narrative Exam General: Awake. Tracheostomy in situ HEENT: Normocephalic, atraumatic, mucous membranes moist. Heart: Tachycardia. No murmurs noted Lungs: Transmitted breath sounds heard with occasional wheezing Abdomen: Severely distended, tense, no bowel sounds heard. Tender to touch. Godinez catheter in the G-tube site. Neurologic: patient able to move all 4 extremities. Noticed decreased movements on left side Extremities: Bilateral lower extremity pedal edema 2+ noted. Mottling is noted Skin: No rash or ecchymoses. Objective Labs 06/02/24 02:40 06/02/24 02:40 Labs: Laboratory Results - last 24 hr 05/31/24 05/31/24 05/31/24 06:13 09:33 09:38 WBC 23.0 H D RBC 3.44 L Hgb 10.0 L Hct 32.4 L MCV 94 MCH 29.1 MCHC 30.9 L RDW Std Deviation 56.8 H Plt Count 247 Neut % (Auto) 89 H Lymph % (Auto) 3 L [place] % (Auto) 7 Eos % (Auto) 0 Baso % (Auto) 0 Neut # (Auto) 20.5 H Lymph # (Auto) 0.7 L [place] # (Auto) 1.6 H Eos # (Auto) 0.0 Baso # (Auto) 0.1 Immature Gran # (Auto) 0.19 H Absolute Nucleated RBC 0.00 Immature Gran % 1 H Nucleated RBC % 0 Puncture Site Right Brachial ABG pH 7.25 L ABG pCO2 68 H ABG pO2 88 ABG HCO3 30 H ABG O2 Saturation 96 ABG Base Excess 2 FiO2 60 Sodium 143 Potassium 2.3 L* Chloride 103 Carbon Dioxide 27.3 Anion Gap 13 BUN 27 H Creatinine 0.9 Estim Creat Clear Calc 61.2 eGFR > 60 BUN/Creatinine Ratio 30 H Glucose 95 Calculated Osmolality 290 Lactic Acid 2.7 H Calcium 9.0 Corrected Calcium 9.1 Phosphorus Magnesium 2.2 Total Bilirubin 0.4 AST 52 H ALT 19 Alkaline Phosphatase 133 H Total Protein 6.9 Albumin 3.9 Globulin 3.0 Albumin/Globulin Ratio 1.3 Procalcitonin 05/31/24 12:30 WBC 22.3 H RBC 3.22 L Hgb 9.5 L Hct 31.2 L MCV 97 MCH 29.5 MCHC 30.4 L RDW Std Deviation 57.7 H Plt Count 251 Neut % (Auto) 90 H Lymph % (Auto) 3 L [place] % (Auto) 5 Eos % (Auto) 0 Baso % (Auto) 0 Neut # (Auto) 20.1 H Lymph # (Auto) 0.7 L [place] # (Auto) 1.1 H Eos # (Auto) 0.0 Baso # (Auto) 0.1 Immature Gran # (Auto) 0.28 H Absolute Nucleated RBC 0.02 H Immature Gran % 1 H Nucleated RBC % 0 Puncture Site ABG pH ABG pCO2 ABG pO2 ABG HCO3 ABG O2 Saturation ABG Base Excess FiO2 Sodium 145 Potassium 3.5 D Chloride 106 Carbon Dioxide 33.8 H Anion Gap 5 L BUN 31 H Creatinine 1.3 Estim Creat Clear Calc 42.4 L eGFR 58 L BUN/Creatinine Ratio 24 H Glucose 101 Calculated Osmolality 295 Lactic Acid 1.4 Calcium 8.4 Corrected Calcium 8.7 Phosphorus 3.9 Magnesium 2.4 Total Bilirubin 0.2 L AST 57 H ALT 15 Alkaline Phosphatase 131 H Total Protein 6.3 Albumin 3.6 Globulin 2.7 Albumin/Globulin Ratio 1.3 Procalcitonin 0.34 ABG Interpretation ABG results: 05/31/24 09:33 ABG pH 7.25 L ABG pCO2 68 H ABG pO2 88 ABG HCO3 30 H ABG O2 Saturation 96 ABG Base Excess 2 Quality Measures Quality Measures none Advance care planning discussed with:: spouse and child Assessment & Plan Assessment Current Active Medications: Generic Name Dose Route Start Last Admin Trade Name Freq PRN Reason Stop Dose Admin Acetaminophen 120 mg 05/31/24 10:19 05/31/24 10:49 Acetaminophen 120 Mg Supp [place] 06/30/24 10:18 120 mg Q6HR PRN Administration PAIN OR FEVER > 101 Piperacillin/Tazobactam/Dextrose 50 mls @ 12.5 mls/hr 05/29/24 14:00 05/31/24 13:40 Zosyn IV 06/05/24 13:59 12.5 mls/hr Q8HR XOCHITL Administration Protocol Potassium Chloride 30 meq/ 1,015 mls @ 75 mls/hr 05/30/24 10:00 05/31/24 01:04 Sodium Chloride IV 06/04/24 09:59 75 mls/hr .[id number] XOCHITL Administration Protocol Vancomycin/Sodium Chloride 750 mg in 150 mls @ 120 mls/hr 05/31/24 12:15 05/31/24 14:04 Vancomycin/Ns 750 Mg Ivpb IV 06/07/24 12:14 120 mls/hr BID@1000,2200 XOCHITL Administration Protocol Lactated Ringer's 2,000 mls @ 999 mls/hr 05/31/24 12:56 05/31/24 13:23 Lactated Ringers IV 05/31/24 14:56 999 mls/hr .Q2H1M ONE Administration Lactulose 20 gm 05/31/24 09:00 05/31/24 08:29 Lactulose Syrup 20 Gm/30 Ml Udc GT 06/30/24 08:59 20 gm BID XOCHITL Administration Protocol Levalbuterol HCl 0.63 mg 05/29/24 11:00 05/31/24 13:58 Levalbuterol Rt 0.63 Mg/3 Ml Nebu INH 06/28/24 10:59 0.63 mg Q4HRRT XOCHITL Administration Metoclopramide HCl 10 mg 05/29/24 15:00 05/31/24 13:59 Metoclopramide Inj 5 Mg/Ml Vial 2 Ml IVP 06/28/24 14:59 10 mg Q6HR XOCHITL Administration Protocol Pantoprazole Sodium 40 mg 05/29/24 09:00 05/31/24 08:30 Pantoprazole Inj 40 Mg Vial IVP 06/28/24 08:59 40 mg QDAY XOCHITL Administration Pharmacy Consult 1 each 05/31/24 12:00 Vancomycin Pharmacy To Dose 1 Each Each IV 06/30/24 11:59 QDAY PRN PROTOCOL Plan A 73-year-old male with past medical history of CVA [nonverbal at baseline], chronic peg tube, chronic tracheostomy, hyperlipidemia, diabetes mellitus, recurrent UTIs with resistant organisms, depression, anxiety, history of upper extremity bilateral DVT was brought to the hospital from subacute facility with the complaints of constipation and abdominal distention since 5 days and diagnosed to have large bowel obstruction # Large bowel obstruction # Likely due to fecal impaction # S/p PEG tube # Right inguinal hernia, urine bladder as content -Patient is having constipation for almost 10 days from now -Patient had a bowel movement on 05/25/2024 following enema -Dr. Durant was following the patient and tried edema, GoLytely but patient still did not have any bowel movement since 5 days before the day of admission -On examination, patient was found to have very distended abdomen which is tense and noted absent bowel sounds -CT abdomen showed severely dilated large bowel with massive amount of stool in the rectosigmoid junction with rectal thickening. -Dr. Durant was consulted and he recommended surgical consult with no active interventions from his side -CBC at the time of admission showed mildly elevated WBC count 13.3, mild anemia. Potassium is 3.3 Plan -Patient is kept n.p.o. -Dr Cramer was consulted and recommended soapsuds enema, lactulose through PEG tube on the day of admission -Started on IV Zosyn [05/29 to present] -Started on metoclopramide -Dr Cramer recommended no surgery as of now and as per chart review, Dr. Cramer did manual disimpaction and extracted large amounts of stool on 05/30/2024 -Will continue to monitor patient for bowel movements. # Bilateral pneumonia Likely due to aspiration versus ventilator associated pneumonia -Chest x-ray done this morning secondary to worsening shortness of breath showed bilateral new onset infiltrates -Started vancomycin -Will continue mechanical ventilation. # Hypokalemia, resolved -Patient was found to have potassium of 3.3 at the time of admission -Potassium on 05/31/2024 is 2.3 for which 40 mEq of IV potassium is given. -Repeat potassium at 12:30 is 3.5 -Will continue to monitor electrolytes and replete accordingly # Chronic hypoxic respiratory failure, s/p tracheostomy -Patient was on mechanical ventilator -Saturations are maintained well and there is no tachypnea -Will continue mechanical ventilation # History of CVA with residual deficit # History of hyperlipidemia -Held antiplatelets for now in view of current medical condition. # History of diabetes mellitus -Patient is on insulin at the facility -HbA1c on 04/2024 is within normal limits -Glucose checks every 6 hourly as patient is kept on n.p.o. Hospital Maintenance: Dispo: Telemetry DVT ppx: SCD GI ppx: Protonix Diet: N.p.o. IV lines: Peripheral Code status: Full code Patient plan of care was discussed with the attending physician, Dr. Braeden Shaikh, PGY1 Attending Provider Attestation/Addendum I reviewed labs, imaging, EKG, home medications and prior available records. Face to face evaluation was performed by me. I have personally examined the patient and discussed assessment and plan with the IM team. I reviewed the resident note and agree with the plan with exceptions as below. See my addendum in a separate note for the same date.
[2024-05-31 14:46] LABS: Base Excess -1 (-3-3); HCO3 29 mEq/L (20-26); O2 Saturation 99 % (91-98); PCO2 78 mmHg (32.0-48.0); PO2 124 mmHg (83-108)
[2024-05-31 14:52] LABS: pH, Arterial 7.18 (7.35-7.45)
[2024-05-31 14:53] LABS: Allen Test Not Performed; Inspired Oxygen, FIO2 90 %; Puncture Site Right Brachial
--- NOTE | 2024-05-31 15:28 | PC.NURSE ---
1330- patient,s peg tube came out, water balloon was deflated , called uriel solo and made aware. dr. trevino called dr. isaac who order to replace gt with rodríguez catheter, dr. trevino reinserted rodríguez cath to peg.
--- NOTE | 2024-05-31 16:23 | PD.RESPRO ---
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 Patient recently came to the ED on 05/24/2024 with similar complaints and received enema following which patient had a bowel movement and transferred back to the facility. Later patient was still found to have constipation for which Dr. Durant was consulted and patient received different bowel regimens and GoLytely with no much effect on constipation. As the patient is having progressive severe abdominal distention with constipation despite bowel regimens and GoLytely he was brought to the hospital today. No history of fever, vomitings. Dr. Durant was consulted and he tried to manually disimpact the stools but unsuccessful. Later Dr Cramer was consulted. ED Course: -Initial vitals were blood pressure 140/84 mmHg, pulse rate 101 bpm, respiratory rate 22/min, SpO2 98% on mechanical ventilator on AC/VC mode. -Labs significant for WBC 9.1, Hb 11.8, platelets 241, sodium 138, potassium 3.3, chloride 90, bicarb 37.1, lactate 1.2, AST 41, ALT 23, procalcitonin 0.07 -CT abdomen/pelvis showed markedly distended large bowel with rectal thickening, massive stool impaction in the rectosigmoid colon and right inguinal hernia with urinary bladder as content -In the ED, patient was given potassium, cefepime. -Patient was admitted for Past medical history: CVA, hypertension, hyperlipidemia, diabetes mellitus, chronic PEG, COPD Past surgical history: PEG tube placement Social history: Unknown Patient developed worsening labs, respiratory distress with hypoxia, fever, and hypotension on the floors prompting rapid response. At bedside patient had MAP 41, with weak and slow peripheral pulse. Patient had clear mottling of feet, knees, hands. Chest x-ray showed worsening infiltrates of both lungs, especially prominent in left lung. Patient upgraded to ICU for worsening acute hypoxic respiratory failure, hypotension with weak peripheral pulses. Patient did not require pressors, received 2 L bolus lactated Ringer's with significant improvement in blood pressure. Peripheral pulse improved as well, heart rate WNL. Goals of care discussion held with family, who wishes to continue pursuing full treatment at this time. Exam Vital Signs Temp Pulse Resp BP Pulse Ox O2 Del Method FiO2 99.5 F 97 28 H 104/64 100 Mechanical Ventilation 90 05/31/24 12:30 05/31/24 14:45 05/31/24 14:45 05/31/24 14:45 05/31/24 14:45 05/31/24 14:45 05/31/24 14:58 Narrative Exam PE: Gen: Alert, poorly responsive. Tracheostomy. HEENT: NCAT, PERRLA, EOMI, anicteric conjunctivae. Dry mucous membranes. CVS: normal S1 and S2. RRR. No M/R/G. Resp: Poor lung sounds. Abd: Abdomen tense, severely distended. PEG tube displaced, Godinez cath in ostomy site temporarily, with suction. MSK: Good ROM in BUE & BLE. Bilateral lower extremity edema. Edematous scrotum. Mottling of hands, knees, feet. Neuro: CN II-XII grossly intact. Baseline nonverbal. Minimally responsive. Objective Labs 05/31/24 12:30 05/31/24 12:30 Labs: Laboratory Results - last 24 hr 05/31/24 05/31/24 05/31/24 06:13 09:33 09:38 WBC 23.0 H D RBC 3.44 L Hgb 10.0 L Hct 32.4 L MCV 94 MCH 29.1 MCHC 30.9 L RDW Std Deviation 56.8 H Plt Count 247 Neut % (Auto) 89 H Lymph % (Auto) 3 L Prentiss % (Auto) 7 Eos % (Auto) 0 Baso % (Auto) 0 Neut # (Auto) 20.5 H Lymph # (Auto) 0.7 L Prentiss # (Auto) 1.6 H Eos # (Auto) 0.0 Baso # (Auto) 0.1 Immature Gran # (Auto) 0.19 H Absolute Nucleated RBC 0.00 Immature Gran % 1 H Nucleated RBC % 0 Puncture Site Right Brachial ABG pH 7.25 L ABG pCO2 68 H ABG pO2 88 ABG HCO3 30 H ABG O2 Saturation 96 ABG Base Excess 2 FiO2 60 Sodium 143 Potassium 2.3 L* Chloride 103 Carbon Dioxide 27.3 Anion Gap 13 BUN 27 H Creatinine 0.9 Estim Creat Clear Calc 61.2 eGFR > 60 BUN/Creatinine Ratio 30 H Glucose 95 Calculated Osmolality 290 Lactic Acid 2.7 H Calcium 9.0 Corrected Calcium 9.1 Phosphorus Magnesium 2.2 Total Bilirubin 0.4 AST 52 H ALT 19 Alkaline Phosphatase 133 H Total Protein 6.9 Albumin 3.9 Globulin 3.0 Albumin/Globulin Ratio 1.3 Procalcitonin 05/31/24 05/31/24 12:30 14:33 WBC 22.3 H RBC 3.22 L Hgb 9.5 L Hct 31.2 L MCV 97 MCH 29.5 MCHC 30.4 L RDW Std Deviation 57.7 H Plt Count 251 Neut % (Auto) 90 H Lymph % (Auto) 3 L Prentiss % (Auto) 5 Eos % (Auto) 0 Baso % (Auto) 0 Neut # (Auto) 20.1 H Lymph # (Auto) 0.7 L Prentiss # (Auto) 1.1 H Eos # (Auto) 0.0 Baso # (Auto) 0.1 Immature Gran # (Auto) 0.28 H Absolute Nucleated RBC 0.02 H Immature Gran % 1 H Nucleated RBC % 0 Puncture Site Right Brachial ABG pH 7.18 L* ABG pCO2 78 H* D ABG pO2 124 H D ABG HCO3 29 H ABG O2 Saturation 99 H ABG Base Excess -1 FiO2 90 Sodium 145 Potassium 3.5 D Chloride 106 Carbon Dioxide 33.8 H Anion Gap 5 L BUN 31 H Creatinine 1.3 Estim Creat Clear Calc 42.4 L eGFR 58 L BUN/Creatinine Ratio 24 H Glucose 101 Calculated Osmolality 295 Lactic Acid 1.4 Calcium 8.4 Corrected Calcium 8.7 Phosphorus 3.9 Magnesium 2.4 Total Bilirubin 0.2 L AST 57 H ALT 15 Alkaline Phosphatase 131 H Total Protein 6.3 Albumin 3.6 Globulin 2.7 Albumin/Globulin Ratio 1.3 Procalcitonin 0.34 ABG Interpretation ABG results: 05/31/24 05/31/24 09:33 14:33 ABG pH 7.25 L 7.18 L* ABG pCO2 68 H 78 H* D ABG pO2 88 124 H D ABG HCO3 30 H 29 H ABG O2 Saturation 96 99 H ABG Base Excess 2 -1 Quality Measures Quality Measures VTE prophylaxis Advance care planning discussed with:: spouse and child Assessment & Plan Assessment Current Active Medications: Generic Name Dose Route Start Last Admin Trade Name Freq PRN Reason Stop Dose Admin Acetaminophen 120 mg 05/31/24 10:19 05/31/24 10:49 Acetaminophen 120 Mg Supp AL 06/30/24 10:18 120 mg Q6HR PRN Administration PAIN OR FEVER > 101 Piperacillin/Tazobactam/Dextrose 50 mls @ 12.5 mls/hr 05/29/24 14:00 05/31/24 13:40 Zosyn IV 06/05/24 13:59 12.5 mls/hr Q8HR XOCHITL Administration Protocol Potassium Chloride 30 meq/ 1,015 mls @ 75 mls/hr 05/30/24 10:00 05/31/24 01:04 Sodium Chloride IV 06/04/24 09:59 75 mls/hr .[id number] XOCHITL Administration Protocol Vancomycin/Sodium Chloride 750 mg in 150 mls @ 120 mls/hr 05/31/24 12:15 05/31/24 14:04 Vancomycin/Ns 750 Mg Ivpb IV 06/07/24 12:14 120 mls/hr BID@1000,2200 XOCHITL Administration Protocol Lactulose 20 gm 05/31/24 09:00 05/31/24 08:29 Lactulose Syrup 20 Gm/30 Ml Udc GT 06/30/24 08:59 20 gm BID XOCHITL Administration Protocol Levalbuterol HCl 0.63 mg 05/29/24 11:00 05/31/24 13:58 Levalbuterol Rt 0.63 Mg/3 Ml Nebu INH 06/28/24 10:59 0.63 mg Q4HRRT XOCHITL Administration Metoclopramide HCl 10 mg 05/29/24 15:00 05/31/24 13:59 Metoclopramide Inj 5 Mg/Ml Vial 2 Ml IVP 06/28/24 14:59 10 mg Q6HR XOCHITL Administration Protocol Pantoprazole Sodium 40 mg 05/29/24 09:00 05/31/24 08:30 Pantoprazole Inj 40 Mg Vial IVP 06/28/24 08:59 40 mg QDAY XOCHITL Administration Pharmacy Consult 1 each 05/31/24 12:00 Vancomycin Pharmacy To Dose 1 Each Each IV 06/30/24 11:59 QDAY PRN PROTOCOL Plan 73-year-old male with 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 Neuro: #Acute encephalopathy #CVA with residual deficits Metabolic encephalopathy due to severe constipation, hypoxia, metabolic disturbances. Patient is nonverbal at baseline, per family at bedside he is normally somewhat interactive. Currently patient is responsive only to pain, does not open eyes or track sounds. -Treat underlying conditions -Monitor Cardio: #Septic shock-improving Patient developed severe hypotension causing rapid response to be called, MAP 41. Patient had notable mottling of hands, knees, feet. Patient has had fevers, leukocytosis. Patient showed significant improvement after 2 L bolus lactated Ringer's, hypotension resolved. Patient remains mottled. -Close monitoring -Continue antibiotics: Vancomycin and Zosyn -Follow-up blood and sputum cultures Pulm: #Acute hypoxic respiratory failure #Pneumonia Patient developed worsening hypoxia despite increasing FiO2 on the floors. Chest x-ray shows significant bilateral pneumonia, more severe on the left side. Patient has significantly distended abdomen, present on lungs. ABG showed pH 7.18, pCO2 70, pO2 124. Vent settings changed to increase tidal volume and respiratory rate, repeat ABG showed pH 7.3, pCO2 57, pO2 69. -Maintain vent settings, wean down FiO2 as tolerated -Levalbuterol as needed -Antibiotics as above GI: #Large bowel obstruction DDx: [place] versus fecal impaction Patient has significant stool burden confirmed by CT imaging. Patient has had significant constipation for 15 days despite receiving multiple rounds of laxatives, enemas, GoLytely, digital disimpaction. Abdomen is significantly distended, tense. Surgery is on board. -Dulcolax suppository every 8 hours as needed -Lactulose syrup twice daily -Reglan every 6 hours -PEG tube to suction -Correct underlying metabolic abnormalities -Surgery consulted, appreciate recommendations #Displaced PEG tube PEG tube was displaced, unclear how. Godinez cath inserted into stoma temporarily, hooked up to suction. -PEG tube replacement tonight by Dr. Durant Renal: #Hypokalemia Patient has had severely low potassium, down to 2.2. Patient was given multiple doses of potassium chloride, potassium improved to 3.5. -Monitor -Replete as needed Endo: #No active issues Heme: #Leukocytosis Likely due to infection and reactive to severe abdominal distention. -Monitor #Normocytic anemia Patient has chronic normocytic anemia, slightly worse than normal currently. -Monitor ID: #Pneumonia Patient has severe bilateral pneumonia, worsened by abdominal distention compressing lungs. -Vancomycin pharmacy dosing (started 03/31) -Zosyn 3.375 g IV every 8 hour (started 03/29) -Tylenol as needed for fevers Skin/MSK: #No active issues ICU Health maintenance: Mechanical ventilation: Yes Sedation: No Diet: None DVT ppx: Lovenox GI ppx: Protonix Godinez: Yes IV lines: Peripheral IV Central line: No Arterial line: No Code status: Full code Plan of care discussed with attending Dr. Stokes. Jayjay Malagon MD PGY-1
[2024-05-31 16:30] LABS: Base Excess 1 (-3-3); HCO3 28 mEq/L (20-26); O2 Saturation 94 % (91-98); PCO2 57 mmHg (32.0-48.0); PO2 69 mmHg (83-108)
[2024-05-31 16:31] LABS: Allen Test Performed/OK; Inspired Oxygen, FIO2 50 %; Puncture Site Right Radial
--- NOTE | 2024-05-31 16:46 | PC.RT ---
Dr Stokes aware of ABG-no changes at this time.
[2024-05-31] MEDS: ACETAMINOPHEN IVPB 1,000 MG/100 ML VIAL 250 MG IV (16:53)
--- NOTE | 2024-05-31 17:15 | ESPR_ITS ---
Documentation for date of: 05/31/24 Subjective Subjective Interval history: This is a 73-year-old male who was admitted to the hospital on 29 May for large bowel obstruction. The bowel obstruction was secondary to fecal impaction with stercoral colitis. The patient has been seen by GI with multiple enemas, suppositories, stool softeners and laxatives given. Per records it appears the patient has not had a bowel movement in over 2 weeks. He has a very distended abdomen. On the floor a rapid response was called for hypotension and hypoxia. Of note the patient is status post trach and PEG secondary to a CVA. During the rapid obtaining a peripheral line was extremely difficult and the patient was quite hypertensive with a systolic blood pressure in the 50s therefore the decision was made to bring patient to the ICU. In the ICU additional IV access was obtained and the patient was given total of 2 L of IV fluids with improvement in his blood pressure. During the rapid the patient was also noted to be mottled. He had a fever of 101 and currently he has a temperature of 103. Family is currently at bedside with multiple questions. During the rapid the patient was also quite hypoxic. Repeat labs and chest x-ray were performed. Several vent changes were made and patient was also switched from pressure control to volume control. It was noted during the rapid that the patient was pulling tidal volumes of 100-150. Critical Care Note Critical care time (min.): 80 Exam Vital Signs Temp Pulse Resp BP Pulse Ox O2 Del Method FiO2 99.5 F 97 28 H 104/64 100 Mechanical Ventilation 90 05/31/24 12:30 05/31/24 14:45 05/31/24 14:45 05/31/24 14:45 05/31/24 14:45 05/31/24 14:45 05/31/24 14:58 Narrative Exam [id number], frail, elderly, nonverbal, the patient's eyes are open however he does not respond to questions HEENT-oral mucosa is dry, poor dentition, sclera icteric, temporal muscle wasting, tracheostomy is in place with some secretions from the trach site Chest-coarse breath sounds bilaterally, no active wheezing, no crackles heard at this time, tachypneic Abdomen-very distended, tense, hard, absent bowel sounds Extremities-edema throughout, pulses weak, mottling of bilateral feet as well as knees, mottling of bilateral hands, hands and lower extremities are contracted Vent AC/VC Physical Exam Completion Physical Exam Complete?: Yes Objective - Equipment Tech Labs 06/01/24 05:15 06/01/24 05:15 Labs: Laboratory Results - last 24 hr 05/31/24 05/31/24 05/31/24 06:13 09:33 09:38 WBC 23.0 H D RBC 3.44 L Hgb 10.0 L Hct 32.4 L MCV 94 MCH 29.1 MCHC 30.9 L RDW Std Deviation 56.8 H Plt Count 247 Neut % (Auto) 89 H Lymph % (Auto) 3 L Bertie % (Auto) 7 Eos % (Auto) 0 Baso % (Auto) 0 Neut # (Auto) 20.5 H Lymph # (Auto) 0.7 L Bertie # (Auto) 1.6 H Eos # (Auto) 0.0 Baso # (Auto) 0.1 Immature Gran # (Auto) 0.19 H Absolute Nucleated RBC 0.00 Immature Gran % 1 H Nucleated RBC % 0 Puncture Site Right Brachial ABG pH 7.25 L ABG pCO2 68 H ABG pO2 88 ABG HCO3 30 H ABG O2 Saturation 96 ABG Base Excess 2 FiO2 60 Sodium 143 Potassium 2.3 L* Chloride 103 Carbon Dioxide 27.3 Anion Gap 13 BUN 27 H Creatinine 0.9 Estim Creat Clear Calc 61.2 eGFR > 60 BUN/Creatinine Ratio 30 H Glucose 95 Calculated Osmolality 290 Lactic Acid 2.7 H Calcium 9.0 Corrected Calcium 9.1 Phosphorus Magnesium 2.2 Total Bilirubin 0.4 AST 52 H ALT 19 Alkaline Phosphatase 133 H Total Protein 6.9 Albumin 3.9 Globulin 3.0 Albumin/Globulin Ratio 1.3 Procalcitonin 05/31/24 05/31/24 05/31/24 12:30 14:33 16:21 WBC 22.3 H RBC 3.22 L Hgb 9.5 L Hct 31.2 L MCV 97 MCH 29.5 MCHC 30.4 L RDW Std Deviation 57.7 H Plt Count 251 Neut % (Auto) 90 H Lymph % (Auto) 3 L Bertie % (Auto) 5 Eos % (Auto) 0 Baso % (Auto) 0 Neut # (Auto) 20.1 H Lymph # (Auto) 0.7 L Bertie # (Auto) 1.1 H Eos # (Auto) 0.0 Baso # (Auto) 0.1 Immature Gran # (Auto) 0.28 H Absolute Nucleated RBC 0.02 H Immature Gran % 1 H Nucleated RBC % 0 Puncture Site Right Brachial Right Radial ABG pH 7.18 L* 7.30 L D ABG pCO2 78 H* D 57 H D ABG pO2 124 H D 69 L D ABG HCO3 29 H 28 H ABG O2 Saturation 99 H 94 ABG Base Excess -1 1 FiO2 90 50 Sodium 145 Potassium 3.5 D Chloride 106 Carbon Dioxide 33.8 H Anion Gap 5 L BUN 31 H Creatinine 1.3 Estim Creat Clear Calc 42.4 L eGFR 58 L BUN/Creatinine Ratio 24 H Glucose 101 Calculated Osmolality 295 Lactic Acid 1.4 Calcium 8.4 Corrected Calcium 8.7 Phosphorus 3.9 Magnesium 2.4 Total Bilirubin 0.2 L AST 57 H ALT 15 Alkaline Phosphatase 131 H Total Protein 6.3 Albumin 3.6 Globulin 2.7 Albumin/Globulin Ratio 1.3 Procalcitonin 0.34 Assessment & Plan Problem List (1) Fecal impaction: Status: Acute Additional Assessment Additional Assessment: In summary this is a 73-year-old male admitted to the ICU with acute on chronic hypoxic respiratory failure and hypotension a/p [employer] h/o Dementia h/o CVA CV Hypotension- resolved after 2 lts of IVF, his mottling is improved from prior however still present Resp Acute on chronic respiratory failure-patient status post tracheostomy, and ABG obtained at the [facility] earlier today showed a pH 7.25 with pCO2 68. The patient has been on pressure control with very small tidal volumes of 100 150 therefore he was switched to volume control. Several adjustments were made in the most recent ABG showed pH 7.3 with a pCO2 57. The patient's respiratory status is compromised due to his immense abdominal distention. Pneumonia-on antibiotics, follow-up with cultures Renal Hypokalemia-repleted IV Acute kidney injury-patient's creatinine bumped from 0.9-1.3 today. His ZACH is due to his hypotension during [facility]. Will monitor I's and O's, avoid nephrotoxins as able Lactic acidosis-currently resolved ID Severe Sepsis -blood cultures have been obtained, patient is on broad-spectrum antibiotics. Sources are either lungs or pneumonia or gut translocation GI Large bowel obstruction-secondary to fecal impaction Stercoral colitis-has had manual disimpaction along with several enemas and laxatives with minimal results as far. Will schedule suppository laxative and patient to be given an enema at this moment in time. Surgery was already consulted and is following. Endo Stable Heme Leukocytosis-secondary to sepsis Anemia-mild to near baseline continue to monitor DVT prophylaxis-Lovenox Case discussed with ICU team Discussed with family bedside Labs, imaging and records reviewed Approximately 80 critical care minutes required for evaluation, exam, review, intervention, discussion and formulation of plan of care for this critically ill patient with acute on chronic hypoxic respiratory failure and severe sepsis Provider Notation Provider Notation: Although this document has been carefully reviewed, there may still be some phonetic and other typographical errors. These errors are purely grammatical due to imperfections in the software program and should not be construed in any way to compromise the substance of the patient's medical care during this visit. Thank you for the opportunity and privilege in assisting you with this patient's care and management.
[2024-05-31] MEDS: bisacodyL 10 MG SUPP PR (18:02)
--- NOTE | 2024-05-31 19:00 | PD.IMOPNOTE ---
Date of Procedure 05/31/24 Pre Op Diagnosis Malfunctioning PEG tube Post Op Diagnosis Replacement of the PEG tube Procedure Replacement of the PEG tube with MIS Welsh 22 Findings As above Procedure Description Patient evaluated in the ICU The existing tube which was a Godinez catheter was deflated and pulled out In its place Welsh 20 MIS gastrostomy tube was placed in position and the balloon was inflated with a 10 cc sterile water And the tube secured in position Anesthesia none Pathology / specimen None Pathology comment: None Estimated Blood Loss 0 Surgeon Krishna Durant MD Diagnosis Problem List Completed Was Problem List Reviewed/Reconciled?: Yes
--- NOTE | 2024-05-31 20:52 | EVENTNT_ITS ---
Documentation for date of: 05/31/24 Event Note Event Note: Had a goals of care discussion with patient's and son, as patient had 2 rapid responses today and was transferred to ICU for severe hypotension during second rapid response. Discussed current bowel obstruction with minimal improvement with laxatives, enemas and manual disimpaction. Discussed conservative management as recommended by general surgery and GI. Discussed possible complications related to bowel obstruction, including but not limited to arrhythmias associated with electrolyte abnormalities (potassium 2.3 this morning, 2.5 after 80 mEq replaced); hypoxia from restrictive nature secondary to constipation; aspiration events/pneumonia; barotrauma due to peak pressures in 50s on MV; decreased perfusion to vital organs/BLE (patient with no urine output noted, and legs mottled with absent pulses in BLE). At this time, family wished for records to be obtained from OSH ([facility] as patient was previously treated there for similar complaints. As for CODE STATUS, son stated that they would need to discuss with other family members. translator interpreter was present at bedside. Family had the opportunity to ask questions, which were answered to their satisfaction. Patient seen and care discussed with my attending Dr. Deras. Yahaira Coombs MD PGY-3
[2024-06-01] VITALS (39 sets, daily range): BP systolic 96–148; BP diastolic 45–73; PULSE 88–118; RESP 20–39; TEMP 36.7–38.6; O2SAT 86–100; BMI 25.7
[2024-06-01] MEDS: METOCLOPRAMIDE INJ 5 MG/ML VIAL 2 ML 10 MG IVP ×5 (00:45→23:55)
[2024-06-01] MEDS: bisacodyL 10 MG SUPP PR (00:46)
[2024-06-01] MEDS: LEVALBUTEROL RT 0.63 MG/3 ML NEBU INH ×7 (03:00→22:34)
[2024-06-01] MEDS: PIPER/TAZO 3.375 GM 50 ML IV ×3 (05:47→21:39)
[2024-06-01 06:15] LABS: Basophils % (Auto) 0 % (0-2.5); Eosinophils % (Auto) 0 % (0-10); Hematocrit 33.2 % (41.0-53.0); Hemoglobin 10.3 g/dL (13.5-16.0); Immature Granulocytes % (Auto) 1 % (0-0); Immature Granulocytes Auto 0.08 Thou/mm3 (0.00-0.00); Lymphocytes # (Auto) 0.5 Thou/mm3 (1.0-4.8); Lymphocytes % (Auto) 3 % (10-50); Mean Corpuscular Hemoglobin 29.1 pg (25.0-35.0); Mean Corpuscular Volume 94 fL (80-100); Monocytes # (Auto) 0.7 Thou/mm3 (0.0-0.8); Monocytes % (Auto) 4 % (0-12); Neutrophils # (Auto) 14.6 Thou/mm3 (1.8-7.7); Neutrophils % (Auto) 92 % (37-80); Nucleated Red Blood Cell % 0 /100 WBC (0); Platelet Count 186 Thou/mm3 (140-440); RDW Standard Deviation 57.4 fL (35.1-43.9); Red Blood Count 3.54 Miln/mm3 (4.50-5.90); White Blood Count 15.8 Thou/mm3 (3.8-10.6)
--- NOTE | 2024-06-01 06:46 | XR_ITS ---
Examination: AP chest single view Technique one AP portable semiupright chest single view Exam date and time: June 01, 2024 0717 hrs. Comparison May 31, 2024 Indications: Extensive pneumonia on chest imaging this week Findings: Bilateral extensive pneumonia Tracheostomy tube tip 6.2 cm above delmy Mild enlargement cardiac contour ectatic thoracic aorta Impression: No improvement in extensive bilateral pneumonia
[2024-06-01 06:53] LABS: Alanine Aminotransferase 55 U/L (10-49); Albumin, Serum 3.6 gm/dL (3.4-4.8); Albumin/Globulin Ratio 1.4 (1.2-2.2); Alkaline Phosphatase 112 U/L (46-116); Anion Gap 17 (7-16); Aspartate Amino Transferase 225 U/L (0-34); BUN/Creatinine Ratio 29 Ratio (12-20); Bilirubin,Total 0.5 mg/dL (0.3-1.2); Blood Urea Nitrogen 35 mg/dL (9-23); Calcium 9.1 mg/dL (8.3-10.6); Calcium (Corrected) 9.4 mg/dL (8.5-10.1); Carbon Dioxide 26.2 mMol/L (20.0-31.0); Chloride 104 mMol/L (98-107); Creatinine (Component) 1.2 mg/dL (0.6-1.3); Estimated Creatinine Clearance 45.9 mL/min (>60); Globulin 2.6 gm/dL (2.3-3.5); Glucose 98 mg/dL (74-106); Magnesium 2.5 mg/dL (1.6-2.6); Osmolality,Calculated 300 (275-295); Sodium 147 mMol/L (136-145); Total Protein 6.2 gm/dL (5.7-8.2); eGFR > 60 See Note
[2024-06-01 07:03] LABS: Phosphorous 0.9 mg/dL (2.4-5.1); Potassium 2.7 mMol/L (3.4-5.1)
[2024-06-01] MEDS: POT PHOS 15 mMol in NS 250 ML 15 MMOL/250 ML BAG 62.5 MMOL IV ×2 (07:35→13:37)
[2024-06-01 07:59] LABS: Base Excess 5 (-3-3); HCO3 28 mEq/L (20-26); Inspired Oxygen, FIO2 21 %; O2 Saturation 89 % (91-98); PCO2 37 mmHg (32.0-48.0); pH, Arterial 7.49 (7.35-7.45)
[2024-06-01 08:04] LABS: Allen Test Performed/OK; PO2 49 mmHg (83-108); Puncture Site Right Brachial
[2024-06-01] MEDS: PANTOPRAZOLE INJ 40 MG VIAL IVP (09:14)
[2024-06-01] MEDS: ENOXAPARIN SOD INJ 40 MG/0.4 ML SYRINGE SC (09:14)
[2024-06-01] MEDS: VANCOMYCIN/NS 750 MG IVPB 750 MG/150 ML BAG 120 MG IV (10:40)
[2024-06-01] MEDS: ACETAMINOPHEN SOL 325 MG/10 ML UDC 650 MG GT (10:46)
--- NOTE | 2024-06-01 11:30 | PD.RESPRO ---
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 Patient recently came to the ED on 05/24/2024 with similar complaints and received enema following which patient had a bowel movement and transferred back to the facility. Later patient was still found to have constipation for which Dr. Durant was consulted and patient received different bowel regimens and GoLytely with no much effect on constipation. As the patient is having progressive severe abdominal distention with constipation despite bowel regimens and GoLytely he was brought to the hospital today. No history of fever, vomitings. Dr. Durant was consulted and he tried to manually disimpact the stools but unsuccessful. Later Dr Cramer was consulted. ED Course: -Initial vitals were blood pressure 140/84 mmHg, pulse rate 101 bpm, respiratory rate 22/min, SpO2 98% on mechanical ventilator on AC/VC mode. -Labs significant for WBC 9.1, Hb 11.8, platelets 241, sodium 138, potassium 3.3, chloride 90, bicarb 37.1, lactate 1.2, AST 41, ALT 23, procalcitonin 0.07 -CT abdomen/pelvis showed markedly distended large bowel with rectal thickening, massive stool impaction in the rectosigmoid colon and right inguinal hernia with urinary bladder as content -In the ED, patient was given potassium, cefepime. -Patient was admitted for Past medical history: CVA, hypertension, hyperlipidemia, diabetes mellitus, chronic PEG, COPD Past surgical history: PEG tube placement Social history: Unknown Patient developed worsening labs, respiratory distress with hypoxia, fever, and hypotension on the floors prompting rapid response. At bedside patient had MAP 41, with weak and slow peripheral pulse. Patient had clear mottling of feet, knees, hands. Chest x-ray showed worsening infiltrates of both lungs, especially prominent in left lung. Patient upgraded to ICU for worsening acute hypoxic respiratory failure, hypotension with weak peripheral pulses. Patient did not require pressors, received 2 L bolus lactated Ringer's with significant improvement in blood pressure. Peripheral pulse improved as well, heart rate WNL. Goals of care discussion held with family, who wishes to continue pursuing full treatment at this time. 06/01/2024: Patient seen and examined at bedside. Patient alert, occasionally tracked sounds, poorly responsive. Abdomen distended, significantly improved from yesterday. Multiple large bowel movements. Patient had PEG tube replaced overnight without issues. Patient had low potassium and phosphate, repleated. Patient stable for downgrade to telemetry. Exam Vital Signs Temp Pulse Resp BP Pulse Ox O2 Del Method FiO2 101.5 F H 103 H 22 H 112/53 L 94 L Mechanical Ventilation 35 06/01/24 10:46 06/01/24 10:19 06/01/24 10:19 06/01/24 10:16 06/01/24 10:19 06/01/24 06:00 06/01/24 10:19 Narrative Exam PE: Gen: Alert, poorly responsive. Tracheostomy. HEENT: NCAT, PERRLA, EOMI, anicteric conjunctivae. Dry mucous membranes. CVS: normal S1 and S2. Regular rhythm. No M/R/G. Tachycardia. Resp: Coarse lung sounds. Abd: Abdomen distended, improved. PEG tube with suction. MSK: Good ROM in BUE & BLE. Bilateral lower and upper extremity edema. Edematous scrotum. Neuro: CN II-XII grossly intact. Baseline nonverbal. Sometimes tracks sounds. Objective Labs 06/01/24 05:15 06/01/24 05:15 Labs: Laboratory Results - last 24 hr 05/31/24 05/31/24 05/31/24 12:30 14:33 16:21 WBC 22.3 H RBC 3.22 L Hgb 9.5 L Hct 31.2 L MCV 97 MCH 29.5 MCHC 30.4 L RDW Std Deviation 57.7 H Plt Count 251 Neut % (Auto) 90 H Lymph % (Auto) 3 L [place] % (Auto) 5 Eos % (Auto) 0 Baso % (Auto) 0 Neut # (Auto) 20.1 H Lymph # (Auto) 0.7 L [place] # (Auto) 1.1 H Eos # (Auto) 0.0 Baso # (Auto) 0.1 Immature Gran # (Auto) 0.28 H Absolute Nucleated RBC 0.02 H Immature Gran % 1 H Nucleated RBC % 0 Puncture Site Right Brachial Right Radial ABG pH 7.18 L* 7.30 L D ABG pCO2 78 H* D 57 H D ABG pO2 124 H D 69 L D ABG HCO3 29 H 28 H ABG O2 Saturation 99 H 94 ABG Base Excess -1 1 FiO2 90 50 Sodium 145 Potassium 3.5 D Chloride 106 Carbon Dioxide 33.8 H Anion Gap 5 L BUN 31 H Creatinine 1.3 Estim Creat Clear Calc 42.4 L eGFR 58 L BUN/Creatinine Ratio 24 H Glucose 101 Calculated Osmolality 295 Lactic Acid 1.4 Calcium 8.4 Corrected Calcium 8.7 Phosphorus 3.9 Magnesium 2.4 Total Bilirubin 0.2 L AST 57 H ALT 15 Alkaline Phosphatase 131 H Total Protein 6.3 Albumin 3.6 Globulin 2.7 Albumin/Globulin Ratio 1.3 Procalcitonin 0.34 06/01/24 06/01/24 05:15 07:51 WBC 15.8 H D RBC 3.54 L Hgb 10.3 L Hct 33.2 L MCV 94 MCH 29.1 MCHC 31.0 RDW Std Deviation 57.4 H Plt Count 186 D Neut % (Auto) 92 H Lymph % (Auto) 3 L [place] % (Auto) 4 Eos % (Auto) 0 Baso % (Auto) 0 Neut # (Auto) 14.6 H Lymph # (Auto) 0.5 L [place] # (Auto) 0.7 Eos # (Auto) 0.0 Baso # (Auto) 0.0 Immature Gran # (Auto) 0.08 H Absolute Nucleated RBC 0.00 Immature Gran % 1 H Nucleated RBC % 0 Puncture Site Right Brachial ABG pH 7.49 H D ABG pCO2 37 D ABG pO2 49 L* D ABG HCO3 28 H ABG O2 Saturation 89 L ABG Base Excess 5 H FiO2 21 Sodium 147 H Potassium 2.7 L* D Chloride 104 Carbon Dioxide 26.2 Anion Gap 17 H BUN 35 H Creatinine 1.2 Estim Creat Clear Calc 45.9 L eGFR > 60 BUN/Creatinine Ratio 29 H Glucose 98 Calculated Osmolality 300 H Lactic Acid Calcium 9.1 Corrected Calcium 9.4 Phosphorus 0.9 L* Magnesium 2.5 Total Bilirubin 0.5 AST 225 H ALT 55 H Alkaline Phosphatase 112 Total Protein 6.2 Albumin 3.6 Globulin 2.6 Albumin/Globulin Ratio 1.4 Procalcitonin ABG Interpretation ABG results: 12/05/31/24 05/31/24 09:33 14:33 16:21 ABG pH 7.25 L 7.18 L* 7.30 L D ABG pCO2 68 H 78 H* D 57 H D ABG pO2 88 124 H D 69 L D ABG HCO3 30 H 29 H 28 H ABG O2 Saturation 96 99 H 94 ABG Base Excess 2 -1 1 06/01/24 07:51 ABG pH 7.49 H D ABG pCO2 37 D ABG pO2 49 L* D ABG HCO3 28 H ABG O2 Saturation 89 L ABG Base Excess 5 H Quality Measures Quality Measures VTE prophylaxis Advance care planning discussed with:: spouse and child Assessment & Plan Assessment Current Active Medications: Generic Name Dose Route Start Last Admin Trade Name Freq PRN Reason Stop Dose Admin Acetaminophen 120 mg 05/31/24 10:19 05/31/24 10:49 Acetaminophen [address] 06/30/24 10:18 120 mg Q6HR PRN Administration PAIN OR FEVER > 101 Acetaminophen 650 mg 06/01/24 10:44 06/01/24 10:46 Acetaminophen Lindsey 325 Mg/10 Ml Udc GT 07/01/24 10:02 650 mg Q6HR PRN Administration FEVER >101 Bisacodyl 10 mg 06/02/24 09:00 Bisacod[address] 07/02/24 08:59 QDAY [facility] Protocol Enoxaparin Sodium 40 mg 06/01/24 09:00 06/01/24 09:14 Enoxaparin Sod Inj 40 Mg/0.4 Ml Syringe SC 06/15/24 08:59 40 mg QDAY XOCHITL Administration Piperacillin/Tazobactam/Dextrose 50 mls @ 12.5 mls/hr 05/29/24 14:00 06/01/24 05:47 Zosyn IV 06/05/24 13:59 12.5 mls/hr Q8HR XOCHITL Administration Protocol Vancomycin/Sodium Chloride 750 mg in 150 mls @ 120 mls/hr 05/31/24 12:15 06/01/24 10:40 Vancomycin/Ns 750 Mg Ivpb IV 06/07/24 12:14 120 mls/hr BID@1000,2200 XOCHITL Administration Protocol Potassium Phosphate 15 mmol in 250 mls @ 62.5 mls/hr 06/01/24 07:10 06/01/24 07:35 Pot Phos 15 Mmol In Ns 250 Ml IV 06/01/24 15:09 62.5 mls/hr Q4H XOCHITL Administration Potassium Chloride 10 meq in 100 mls @ 100 mls/hr 06/01/24 10:54 Kcl Ivpb IV 06/01/24 12:53 Q1H XOCHITL Lactulose 20 gm 05/31/24 09:00 06/01/24 09:14 Lactulose Syrup 20 Gm/30 Ml Udc GT 06/30/24 08:59 Not Given BID XOCHITL Protocol Levalbuterol HCl 0.63 mg 05/29/24 11:00 06/01/24 10:18 Levalbuterol Rt 0.63 Mg/3 Ml Nebu INH 06/28/24 10:59 0.63 mg Q4HRRT XOCHITL Administration Metoclopramide HCl 10 mg 05/29/24 15:00 06/01/24 05:45 Metoclopramide Inj 5 Mg/Ml Vial 2 Ml IVP 06/28/24 14:59 10 mg Q6HR XOCHITL Administration Protocol Pantoprazole Sodium 40 mg 05/29/24 09:00 06/01/24 09:14 Pantoprazole Inj 40 Mg Vial IVP 06/28/24 08:59 40 mg QDAY XOCHITL Administration Pharmacy Consult 1 each 05/31/24 12:00 Vancomycin Pharmacy To Dose 1 Each Each IV 06/30/24 11:59 QDAY PRN PROTOCOL Potassium Chloride 20 meq 06/01/24 14:00 Potassium Chloride 10% 20 Meq/15 Ml Udc GT 06/01/24 14:01 X1 ONE Plan 73-year-old male with 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 Neuro: #Acute encephalopathy-improving #CVA with residual deficits Metabolic encephalopathy due to severe constipation, hypoxia, metabolic disturbances. Patient is nonverbal at baseline, per family at bedside he is normally somewhat interactive. Currently patient is responsive only to pain, does not open eyes or track sounds. -Treat underlying conditions -Monitor Cardio: #Septic shock-resolved Patient developed severe hypotension causing rapid response to be called, MAP 41. Patient had notable mottling of hands, knees, feet. Patient has had fevers, leukocytosis. Patient showed significant improvement after 2 L bolus lactated Ringer's, hypotension resolved. Patient mottling improved, BP stable. -Close monitoring -Continue antibiotics: Vancomycin and Zosyn -Follow-up blood and sputum cultures Pulm: #Acute on chronic hypoxic respiratory failure #Pneumonia Patient developed worsening hypoxia despite increasing FiO2 on the floors. Chest x-ray shows significant bilateral pneumonia, more severe on the left side. Patient has significantly distended abdomen, present on lungs. ABG showed pH 7.18, pCO2 70, pO2 124. Vent settings changed to increase tidal volume and respiratory rate, repeat ABG showed pH 7.3, pCO2 57, pO2 69. Patient continues to improve, ABG shows pH 7.43, pCO2 58, pO2 100. -Maintain vent settings, wean down FiO2 as tolerated -Levalbuterol as needed -Antibiotics as above -Treat underlying bowel condition GI: #Large bowel obstruction DDx: [place]'s versus fecal impaction with stercoral colitis Patient has significant stool burden confirmed by CT imaging. Patient has had significant constipation for 15 days despite receiving multiple rounds of laxatives, enemas, GoLytely, digital disimpaction. Abdomen is significantly distended, tense. Surgery is on board. Patient showed significant improvement in abdominal distention after multiple bowel movements. -Dulcolax suppository daily -Lactulose syrup twice daily -Reglan every 6 hours -Correct underlying metabolic abnormalities -Surgery consulted, appreciate recommendations #Displaced PEG tube-resolved PEG tube was displaced, unclear how. Godinez cath inserted into stoma temporarily, hooked up to suction. PEG tube replacement by Dr. Durant without incident. Renal: #Hypokalemia Patient has had severely low potassium, down to 2.2. Patient was given multiple doses of potassium chloride, potassium improved to 3.5. -Monitor -Replete as needed Endo: #No active issues Heme: #Leukocytosis Likely due to infection and reactive to severe abdominal distention. -Monitor #Normocytic anemia Patient has chronic normocytic anemia, slightly worse than normal currently. -Monitor ID: #Pneumonia Patient has severe bilateral pneumonia, worsened by abdominal distention compressing lungs. -Vancomycin pharmacy dosing (started 03/31) -Zosyn 3.375 g IV every 8 hour (started 03/29) -Tylenol as needed for fevers Skin/MSK: #No active issues ICU Health maintenance: Mechanical ventilation: Yes Sedation: No Diet: None DVT ppx: Lovenox GI ppx: Protonix Godinez: Yes IV lines: Peripheral IV Central line: No Arterial line: No Code status: Full code Plan of care discussed with attending Dr. Stokes. Jayjay Malagon MD PGY-1 Attending Provider Attestation/Addendum Patient seen and examined residents agree with above. In brief this is a 73-year-old male who was admitted to the ICU with acute on chronic hypoxic respiratory failure along with large bowel obstruction. Yesterday the patient was hypotensive however responded well to 2 L of IV fluid. He was hypoxic and vent changes were made. It is felt that the majority of his respiratory distress came from the increase in his intra-abdominal pressures from the abdominal distention from his bowel obstruction. His PEG had been to low intermittent suction. He was noted to have fecal impaction. On physical exam today his overall condition is much improved. He does have coarse breath sounds bilaterally with some expiratory wheeze. His abdomen is much less distended than yesterday and no longer hard and firm. PEG tube is in place. Patient does have edema throughout. Today the patient is stable to return to telemetry. He has had several large bowel movements on the regimen in the ICU. His abdominal distention is relieved as this is bowel obstruction. His respiratory status has improved. He is on antibiotics for his pneumonia. His potassium was noted to be low at 2.7 this morning and replacement has been ordered. Will continue him on an aggressive bowel regimen. The mottling that he presented with initially has completely resolved. He continues to spike a fever however not as high as yesterday evening which was 103. He did meet criteria for severe sepsis and was treated as such. Discussion was held with his family at bedside. Again his overall condition is much improved and he would return to telemetry. Case discussed with ICU team Labs, imaging and records reviewed Approximately 38 minutes required for evaluation, exam, review, intervention, discussion formulation of plan of care for this unfortunate gentleman.
[2024-06-01] MEDS: POTASSIUM CHL 10 mEq IVPB 10 MEQ/100 ML BAG 100 MEQ IV ×2 (13:39→15:19)
[2024-06-01] MEDS: POTASSIUM CHLORIDE 10% 20 MEQ/15 ML UDC 40 MEQ GT (13:43)
--- NOTE | 2024-06-01 14:29 | EVENTNT_ITS ---
Documentation for date of: 06/01/24 Event Note Event Note: Mr. Rivera is a 73-year-old male who was recently admitted to medical floors for acute abdomen in the setting of severe constipation. Imaging confirmed stool impaction at the rectosigmoid area. General surgery Dr. Cramer was consulted, GI Dr. Durant was consulted, despite attempts at manual disimpaction, patient had unsuccessful output. He was transferred to ICU for close monitoring given the acute abdomen. Patient had successful stool output in the ICU with rectal Dulcolax and scheduled Reglan. Patient to be downgraded back to medical floors on 06/02/2024 for continued management. Severe hypokalemia was also no jian on lab work today, potassium 2.7, ICU team repleted with 95 mmol of potassium. NG suction discontinued at this time. We will continue to monitor closely and replete electrolytes as needed. Plan of care discussed with attending Juancho Bose MD, PGY 2
[2024-06-01] MEDS: NA SU/NAHCO3/KC/PEG (Golytely) 4,000 ML BTL 4000 ML GT (15:46)
--- NOTE | 2024-06-01 15:59 | PD.IMPROG ---
Documentation for date of: 06/01/24 Subjective Subjective Interval history: 3 large bowel movements Additional GoLytely through the newly placed PEG tube at 20 cc an hour so the rest of the stool can come out of the medical start feeding him through the PEG tube Exam Vital Signs Temp Pulse Resp BP Pulse Ox O2 Del Method FiO2 100.3 F 112 H 21 H 127/61 96 Mechanical Ventilation 50 06/01/24 13:56 06/01/24 15:29 06/01/24 15:29 06/01/24 14:28 06/01/24 15:29 06/01/24 06:00 06/01/24 15:29 Routine Respiratory Exam Comments: Scattered rhonchi Routine Abdominal Exam Comments: Positive bowel sounds and less distended nontender Objective Labs 06/01/24 05:15 06/01/24 05:15 Labs: Laboratory Results - last 24 hr 05/31/24 06/01/24 06/01/24 16:21 05:15 07:51 WBC 15.8 H D RBC 3.54 L Hgb 10.3 L Hct 33.2 L MCV 94 MCH 29.1 MCHC 31.0 RDW Std Deviation 57.4 H Plt Count 186 D Neut % (Auto) 92 H Lymph % (Auto) 3 L [place] % (Auto) 4 Eos % (Auto) 0 Baso % (Auto) 0 Neut # (Auto) 14.6 H Lymph # (Auto) 0.5 L [place] # (Auto) 0.7 Eos # (Auto) 0.0 Baso # (Auto) 0.0 Immature Gran # (Auto) 0.08 H Absolute Nucleated RBC 0.00 Immature Gran % 1 H Nucleated RBC % 0 Puncture Site Right Radial Right Brachial ABG pH 7.30 L D 7.49 H D ABG pCO2 57 H D 37 D ABG pO2 69 L D 49 L* D ABG HCO3 28 H 28 H ABG O2 Saturation 94 89 L ABG Base Excess 1 5 H FiO2 50 21 Sodium 147 H Potassium 2.7 L* D Chloride 104 Carbon Dioxide 26.2 Anion Gap 17 H BUN 35 H Creatinine 1.2 Estim Creat Clear Calc 45.9 L eGFR > 60 BUN/Creatinine Ratio 29 H Glucose 98 Calculated Osmolality 300 H Calcium 9.1 Corrected Calcium 9.4 Phosphorus 0.9 L* Magnesium 2.5 Total Bilirubin 0.5 AST 225 H ALT 55 H Alkaline Phosphatase 112 Total Protein 6.2 Albumin 3.6 Globulin 2.6 Albumin/Globulin Ratio 1.4 Impressions Impression: # Stool impaction More GoLytely via the PEG tube at 200 cc an hour Good results so far with 3 large bowel movements GoLytely to be given at 200 cc an hour ABG Interpretation ABG results: 05/31/24 05/31/24 05/31/24 09:33 14:33 16:21 ABG pH 7.25 L 7.18 L* 7.30 L D ABG pCO2 68 H 78 H* D 57 H D ABG pO2 88 124 H D 69 L D ABG HCO3 30 H 29 H 28 H ABG O2 Saturation 96 99 H 94 ABG Base Excess 2 -1 1 06/01/24 07:51 ABG pH 7.49 H D ABG pCO2 37 D ABG pO2 49 L* D ABG HCO3 28 H ABG O2 Saturation 89 L ABG Base Excess 5 H Assessment & Plan A&P Narrative # Distended abdomen due to colonic obstruction due to stool impaction GoLytely is not helpful Manual disimpaction as well as multiple Fleet enemas have not been helpful Recommend surgical consultation for a possible diverting colostomy Will follow the patient Time Spent With Patient Time: Total time spent is greater than 50% in coordination of care (as documented) at patient's floor/unit and/or counseling patient:
[2024-06-01] MEDS: POTASSIUM CHLORIDE 10% 20 MEQ/15 ML UDC GT (17:02)
[2024-06-02] VITALS (35 sets, daily range): BP systolic 95–132; BP diastolic 48–83; PULSE 94–174; RESP 2–34; TEMP 36.4–37.7; O2SAT 80–100; BMI 25.7
[2024-06-02 00:21] LABS: Vancomycin,Trough 18.2 mcg/mL (5.0-10.0)
[2024-06-02] MEDS: VANCOMYCIN/NS 750 MG IVPB 750 MG/150 ML BAG 120 MG IV (00:24)
[2024-06-02] MEDS: Magnesium Sulfate 4 GM Ivpb 4 GM/50 ML BAG IV (02:43)
[2024-06-02 02:48] LABS: Basophils % (Auto) 0 % (0-2.5); Eosinophils % (Auto) 0 % (0-10); Hematocrit 29.5 % (41.0-53.0); Hemoglobin 9.5 g/dL (13.5-16.0); Immature Granulocytes % (Auto) 1 % (0-0); Immature Granulocytes Auto 0.06 Thou/mm3 (0.00-0.00); Lymphocytes # (Auto) 0.4 Thou/mm3 (1.0-4.8); Lymphocytes % (Auto) 4 % (10-50); Mean Corpuscular HGB Conc 32.2 g/dl (31.0-37.0); Mean Corpuscular Hemoglobin 29.1 pg (25.0-35.0); Mean Corpuscular Volume 91 fL (80-100); Monocytes # (Auto) 0.4 Thou/mm3 (0.0-0.8); Monocytes % (Auto) 3 % (0-12); Neutrophils # (Auto) 10.9 Thou/mm3 (1.8-7.7); Neutrophils % (Auto) 92 % (37-80); Nucleated Red Blood Cell % 0 /100 WBC (0); Platelet Count 176 Thou/mm3 (140-440); RDW Standard Deviation 54.6 fL (35.1-43.9); Red Blood Count 3.26 Miln/mm3 (4.50-5.90); White Blood Count 11.7 Thou/mm3 (3.8-10.6)
[2024-06-02] MEDS: LEVALBUTEROL RT 0.63 MG/3 ML NEBU INH ×6 (03:30→22:22)
[2024-06-02 03:42] LABS: Alanine Aminotransferase 50 U/L (10-49); Albumin, Serum 2.7 gm/dL (3.4-4.8); Albumin/Globulin Ratio 1.1 (1.2-2.2); Alkaline Phosphatase 73 U/L (46-116); Anion Gap 12 (7-16); Aspartate Amino Transferase 159 U/L (0-34); BUN/Creatinine Ratio 30 Ratio (12-20); Bilirubin,Total 0.4 mg/dL (0.3-1.2); Blood Urea Nitrogen 24 mg/dL (9-23); Calcium 8.6 mg/dL (8.3-10.6); Calcium (Corrected) 9.6 mg/dL (8.5-10.1); Carbon Dioxide 30.3 mMol/L (20.0-31.0); Chloride 111 mMol/L (98-107); Creatinine (Component) 0.8 mg/dL (0.6-1.3); Estimated Creatinine Clearance 68.9 mL/min (>60); Globulin 2.4 gm/dL (2.3-3.5); Glucose 70 mg/dL (74-106); Magnesium 2.2 mg/dL (1.6-2.6); Osmolality,Calculated 305 (275-295); Phosphorous 1.7 mg/dL (2.4-5.1); Sodium 153 mMol/L (136-145); Total Protein 5.1 gm/dL (5.7-8.2); eGFR > 60 See Note
[2024-06-02 03:46] LABS: Potassium 2.1 mMol/L (3.4-5.1)
--- NOTE | 2024-06-02 03:47 | PD.DPN ---
Documentation for date of: 06/02/24 Pronouncement Note Date and Time of Date of : 06/02/24 Time of : 03:23 PCOD Preliminary cause of : Cardiopulmonary arrest Contributing Factors (1) Fecal impaction: Additional Data Attending physician: Ady Martínez MD Was code activated?: No
[2024-06-02] MEDS: POT PHOS 15 mMol in NS 250 ML 15 MMOL/250 ML BAG 62.5 MMOL IV ×3 (04:16→16:51)
[2024-06-02] MEDS: POTASSIUM CHL 10 mEq IVPB 10 MEQ/100 ML BAG 50 MEQ IV ×2 (04:17→06:25)
[2024-06-02] MEDS: PIPER/TAZO 3.375 GM 50 ML IV (05:30)
[2024-06-02] MEDS: METOCLOPRAMIDE INJ 5 MG/ML VIAL 2 ML 10 MG IVP ×2 (05:30→12:16)
--- NOTE | 2024-06-02 06:30 | PD.RESEVENT ---
Documentation for date of: 06/03/24 Event Note Event Note: Rapid response was called around 6 PM in view of low saturation despite being on mechanical ventilator on tracheostomy. Immediately went to see the patient. Patient is awake, unresponsive to commands which is his normal baseline since the time of admission. Respiratory therapy was present at the bedside and started doing bag mask ventilation in view of low saturations around 80s and breathing treatment is also given. On examination, there are bilateral decreased breath sounds. Also noted low blood pressure of 66-86/45 to 55 mmHg, heart rate around 150s, atrial fibrillation. Immediately ordered chest x-ray, ABG, CBC CMP, lactate. As patient blood pressure is as low as 60/45 mmHg patient was given a bolus of 500 mL NS. ICU doctor, Dr. Avila was consulted in view of atrial fibrillation with rapid ventricular rate, hypotension and low saturations despite being on bag mask ventilation. Cardiology Dr. Ho was consulted for further recommendations and he suggested no cardioversion in view of current condition. Patient was given a 200 Mg bolus of amiodarone. Later after doing bag and mask ventilation for almost 30 to 45 minutes, saturations are maintained at 90% and patient was reconnected to mechanical ventilator on VC/AC mode with FiO2 100%, PEEP 8. Blood pressures also stabilized to 100-110/60-70 mmHg. Goals of care discussion done with the family and explained about the prognosis of the patient's condition and answered their questions appropriately. Later the family opted for DNR. Patient plan of care was discussed with the attending physician, Dr. Braeden Shaikh, PGY1
[2024-06-02] MEDS: POTASSIUM CHL 10 mEq IVPB 10 MEQ/100 ML BAG 100 MEQ IV ×5 (08:12→23:52)
[2024-06-02] MEDS: ENOXAPARIN SOD INJ 40 MG/0.4 ML SYRINGE SC (08:13)
[2024-06-02] MEDS: PANTOPRAZOLE INJ 40 MG VIAL IVP (08:14)
--- NOTE | 2024-06-02 08:17 | PD.SURPROG ---
Documentation for date of: 06/02/24 Subjective Subjective Narrative: Patient is seen and examined. He has had multiple bowel movements Exam Vital Signs Temp Pulse Resp BP Pulse Ox O2 Del Method FiO2 97.6 F 117 H 20 110/61 92 L Mechanical Ventilation 50 06/02/24 04:00 06/02/24 07:20 06/02/24 07:20 06/02/24 04:00 06/02/24 07:20 06/02/24 04:00 06/02/24 07:20 Constitutional Constitutional: no acute distress Routine Abdominal Exam Comments: Abdomen is soft significantly less distended Assessment & Plan Assessment Additional comments: Stool impaction improving. Patient has still hypokalemia and significant bilateral pneumonia that are the underlying causes of his stool impaction. Unless treated he will have recurrent impaction of the stool Plan He is on antibiotic for pneumonia and his hypokalemia is being corrected. There are no surgical issues. I will be away for a week until 06/11, if there are any questions please call the on-call surgeon Procedures Procedures Replacement of the PEG tube with MIS Syriac 22
--- NOTE | 2024-06-02 08:31 | PC.SS ---
Addendum entered by ELTON Hudson 06/02/24 15:11: Rounding note: GI has recommended tube feeding for the patient. Original Note: Per email from Yeni mancilla at [facility], the patient is on a 7-day bed hold. Patient's bed hold is up on SundayJune 04 at midnight. PASRR will be needed if he does not return before then.
--- NOTE | 2024-06-02 10:00 | EKG_ITS ---
[facility] Test Date: 2024-06-02 Pat Name: MARTHA ANDUJAR [facility] Station Manager: RTSTUDENTCMH : 1950 Requested By: Eddie Shaikh Order Number: [id number] Reading MD: Eddie Shaikh Measurements Intervals [place] Rate: 80 P: [place]: QRS: 8 QRSD: 98 T: -36 QT: 371 QTc: 430 Interpretive Statements ATRIAL FIBRILLATION MODERATE ST DEPRESSION WARNING: DATA QUALITY MAY AFFECT INTERPRETATION Compared to ECG 05/31/2024 11:03:15 ST (T wave) deviation now present Sinus rhythm no longer present Myocardial infarct finding no longer present /store/S0/[id number].pdf
--- NOTE | 2024-06-02 11:00 | PC.NURSE ---
made aware of HR elevation 150-170 bpm; new order for EKG STAT
--- NOTE | 2024-06-02 11:17 | PC.NURSE ---
Pt with HR 150-170 bpm and sustaining this range. Dr. Deras made aware and NEW order for x1 EKG STAT. [place] YEN at bedside made aware.
[2024-06-02] MEDS: ACETYLCYSTEINE RT SOL 10% 4 ML NEBU 3 ML INH ×3 (11:24→22:22)
--- NOTE | 2024-06-02 12:00 | PC.NURSE ---
Pt all AM with intermittent HR accelerations of 150-170 bpm, would not sustain. At this time pt HR sustaining 150-170 bpm. Pt continues to be on GoLytely; x3 loose stools with K+ replacement in progress. Pt not tolerating Q2HR turns, oxygen drops to 70's. FiO2 requirements have increased with each turn and is currently on 80% FiO2. made aware; New order for Amiodarone gtt.
[2024-06-02 12:02] LABS: Anion Gap 15 (7-16); BUN/Creatinine Ratio 24 Ratio (12-20); Blood Urea Nitrogen 19 mg/dL (9-23); Calcium 8.7 mg/dL (8.3-10.6); Carbon Dioxide 26.8 mMol/L (20.0-31.0); Chloride 112 mMol/L (98-107); Creatinine (Component) 0.8 mg/dL (0.6-1.3); Estimated Creatinine Clearance 68.9 mL/min (>60); Glucose 63 mg/dL (74-106); Osmolality,Calculated 305 (275-295); Sodium 154 mMol/L (136-145); eGFR > 60 See Note
[2024-06-02 12:05] LABS: Potassium 2.2 mMol/L (3.4-5.1)
[2024-06-02] MEDS: AMPICILLIN/SULBAC INJ 3 GM in SODIUM CHLORIDE 0.9% (P) 100 ML IV ×3 (12:16→23:22)
[2024-06-02] MEDS: DEXTROSE 50%-WATER INJ 50 ML SYRINGE 25 ML IV ×2 (12:29→23:41)
[2024-06-02] MEDS: AMIODARONE 150 MG IVPB 150 MG/100 ML BAG 600 MG IV (12:51)
[2024-06-02] MEDS: AMIODARONE 360 MG IVPB 360 MG/200 ML BAG 33.333 MG IV ×2 (13:06→19:54)
--- NOTE | 2024-06-02 13:56 | ESPR_ITS ---
<Statement entered by Yahaira Coombs MD - 06/02/24 20:03> Patient was seen and examined by me personally. I agree with most of the assessment and plan as discussed with the qa intern physician, and my attending, Dr. Deras. Patient with multiple BMs and improvement of abd distention. Started on free water flushes for hypernatremia. Repleting potassium and monitor renal panel. Found to be in AFRVR, started on amiodarone drip. Updated at bedside with interpretive services. Yahaira Coombs MD, PGY-3 Documentation for date of: 06/02/24 Subjective Subjective Interval history: Patient is seen and examined bedside. PEG tube was reinserted by Dr. Durant. Patient had multiple bowel movements overnight. Abdomen became soft but mill tender warm up to touch. Patient found to be having tachycardia with heart rate around 150s for which EKG was done and showed atrial fibrillation with rapid ventricular rate and started on amiodarone drip. Labs this morning showed hypernatremia, hypokalemia. IV potassium replacement was done. Calculated free water deficit is 3.2 L and patient was started on 125 mL free water flushes every hourly. Will check sodium levels and renal functions every fourth hourly and correct accordingly. Exam Vital Signs Temp Pulse Resp BP Pulse Ox O2 Del Method FiO2 98.8 F 135 H 27 H 95/61 91 L Mechanical Ventilation 50 06/02/24 12:00 06/02/24 13:06 06/02/24 12:00 06/02/24 13:06 06/02/24 12:00 06/02/24 12:00 06/02/24 12:00 Narrative Exam General: Awake. Tachypneic and audible secretions are heard from the lungs. HEENT: Normocephalic, atraumatic, mucous membranes moist. Heart: Regular rate and rhythm, no murmurs. Lungs: Clear to auscultation with no wheezing or crackles. Abdomen: Soft, nondistended, tender to touch, positive bowel sounds. ?No guarding or rebound tenderness. Neurologic: Patient had history of CVA and decreased movements on left side are noted, and patient able to move all 4 extremities. Extremities: No edema. Contractures are noted in hands Skin: No rash. Multiple ecchymotic patches are noted secondary to IV catheterization Objective Labs 06/02/24 18:59 06/03/24 05:46 Labs: Laboratory Results - last 24 hr 06/01/24 06/02/24 06/02/24 21:08 02:40 10:31 WBC 11.7 H RBC 3.26 L Hgb 9.5 L Hct 29.5 L MCV 91 MCH 29.1 MCHC 32.2 RDW Std Deviation 54.6 H Plt Count 176 Neut % (Auto) 92 H Lymph % (Auto) [address] [place] % (Auto) 3 Eos % (Auto) 0 Baso % (Auto) 0 Neut # (Auto) 10.9 H Lymph # (Auto) 0.[address] [place] # (Auto) 0.4 Eos # (Auto) 0.0 Baso # (Auto) 0.0 Immature Gran # (Auto) 0.06 H Absolute Nucleated RBC 0.00 Immature Gran % 1 H Nucleated RBC % 0 Sodium 153 H 154 H Potassium 2.1 L* D 2.2 L* Chloride 111 H 112 H Carbon Dioxide 30.3 26.8 Anion Gap 12 15 BUN 24 H 19 Creatinine 0.8 0.8 Estim Creat Clear Calc 68.9 68.9 eGFR > 60 > 60 BUN/Creatinine Ratio 30 H 24 H Glucose 70 L 63 L Calculated Osmolality 305 H 305 H Calcium 8.6 8.7 Corrected Calcium 9.6 Phosphorus 1.7 L Magnesium 2.2 Total Bilirubin 0.4 AST 159 H ALT 50 H Alkaline Phosphatase 73 D Total Protein 5.1 L Albumin 2.7 L D Globulin 2.4 Albumin/Globulin Ratio 1.1 L Vancomycin Trough 18.2 H ABG Interpretation ABG results: 05/31/24 05/31/24 05/31/24 09:33 14:33 16:21 ABG pH 7.25 L 7.18 L* 7.30 L D ABG pCO2 68 H 78 H* D 57 H D ABG pO2 88 124 H D 69 L D ABG HCO3 30 H 29 H 28 H ABG O2 Saturation 96 99 H 94 ABG Base Excess 2 -1 1 06/01/24 07:51 ABG pH 7.49 H D ABG pCO2 37 D ABG pO2 49 L* D ABG HCO3 28 H ABG O2 Saturation 89 L ABG Base Excess 5 H Quality Measures Quality Measures VTE prophylaxis Advance care planning discussed with:: significant other Assessment & Plan Assessment Current Active Medications: Generic Name Dose Route Start Last Admin Trade Name Freq PRN Reason Stop Dose Admin Acetaminophen 120 mg 05/31/24 10:19 05/31/24 10:49 Acetaminophen 120 Mg Supp ME 06/30/24 10:18 120 mg Q6HR PRN Administration PAIN OR FEVER > 101 Acetaminophen 650 mg 06/01/24 10:44 06/01/24 10:46 Acetaminophen Lindsey 325 Mg/10 Ml Udc GT 07/01/24 10:02 650 mg Q6HR PRN Administration FEVER >101 Acetylcysteine 3 ml 06/02/24 11:00 06/02/24 11:24 Acetylcysteine Rt Lindsey 10% 4 Ml Nebu INH 07/02/24 10:59 3 ml Q4HRRT XOCHITL Administration Bisacodyl 10 mg 06/02/24 09:00 06/02/24 08:16 Bisacodyl 10 Mg Supp ME 07/02/24 08:59 Not Given QDAY XOCHITL Protocol Dextrose 25 ml 06/02/24 12:15 06/02/24 12:29 Dextrose 50%-Water Inj 50 Ml Syringe IV 07/02/24 12:14 25 ml Q15MIN PRN Administration BG 50-70 responsive npo pt Dextrose 50 ml 06/02/24 12:15 Dextrose 50%-Water Inj 50 Ml Syringe IV 07/02/24 12:14 Q15MIN PRN BG <50 OR BG <70 & pt unresponsive Enoxaparin Sodium 40 mg 06/01/24 09:00 06/02/24 08:13 Enoxaparin Sod Inj 40 Mg/0.4 Ml Syringe SC 06/15/24 08:59 40 mg QDAY XOCHITL Administration Ampicillin Sodium/Sulbactam 100 mls @ 200 mls/hr 06/02/24 12:00 06/02/24 12:16 Sodium 3 gm/ Sodium Chloride IV 06/09/24 11:59 200 mls/hr Q6HR XOCHITL Administration Potassium Phosphate 15 mmol in 250 mls @ 62.5 mls/hr 06/02/24 09:49 06/02/24 10:11 Pot Phos 15 Mmol In Ns 250 Ml IV 06/02/24 17:48 62.5 mls/hr Q4H XOCHITL Administration Amiodarone HCl/Dextrose 360 mg in 200 mls @ 33.333 mls/hr 06/02/24 12:25 06/02/24 13:06 Nexterone Ivpb IV 06/02/24 18:24 33.333 mls/hr .Q6H ONE Administration Amiodarone HCl/Dextrose 360 mg in 200 mls @ 16.667 mls/hr 06/02/24 18:25 Nexterone Ivpb IV 06/03/24 18:24 .Q12H XOCHITL Lactulose 20 gm 05/31/24 09:00 06/02/24 08:14 Lactulose Syrup 20 Gm/30 Ml Udc GT 06/30/24 08:59 Not Given BID XOCHITL Protocol Levalbuterol HCl 0.63 mg 05/29/24 11:00 06/02/24 11:24 Levalbuterol Rt 0.63 Mg/3 Ml Nebu INH 06/28/24 10:59 0.63 mg Q4HRRT XOCHITL Administration Ondansetron HCl 4 mg 06/02/24 13:29 Ondansetron Inj 2 Mg/Ml Inj 2 Ml IV 07/02/24 13:28 Q6HR PRN NAUSEA OR VOMITING Protocol Pantoprazole Sodium 40 mg 05/29/24 09:00 06/02/24 08:14 Pantoprazole Inj 40 Mg Vial IVP 06/28/24 08:59 40 mg QDAY XOCHITL Administration Plan A 73-year-old male with past medical history of CVA [nonverbal at baseline], chronic peg tube, chronic tracheostomy, hyperlipidemia, diabetes mellitus, recurrent UTIs with resistant organisms, depression, anxiety, history of upper extremity bilateral DVT was brought to the hospital from subacute facility with the complaints of constipation and abdominal distention since 5 days and diagnosed to have large bowel obstruction # Hypernatremia #Hyperchloremia likely from dehydration due to decreased intake combined with GI water losses secondary to diarrhea from laxatives. -Sodium on 06/02/2024 is noted to be 153 and repeat sodium at 10:31 is 154. Chloride is 112 -Calculated free water deficit is 3.2 L -Started on free water flushes 125 mL every hourly Plan -Will continue to monitor sodium levels every fourth hourly and correct accordingly # Hypokalemia Likely due to poor oral intake and from GI losses -Potassium is 2.2 as of 06/02/2024 -Supplemented with IV potassium phosphate and potassium acetate Plan -Will continue to monitor potassium levels every fourth hourly and correct accordingly. -Resumed G tube feeds # New onset atrial fibrillation with rapid ventricular rate Likely due to underlying acute on chronic illness -Patient is found to have tachycardia with heart rate around 150s on 06/02/2024 -EKG ordered this morning showed atrial fibrillation with rapid ventricular rate -[id number] score is 3, age, male sex, previous history of stroke Plan -Started on amiodarone drip # Large bowel obstruction, resolving # Likely due to fecal impaction # S/p PEG tube # Right inguinal hernia, urine bladder as content -Patient is having constipation for almost 10 days from now -Patient had a bowel movement on 05/25/2024 following enema -Dr. Durant was following the patient and tried edema, GoLytely but patient still did not have any bowel movement since 5 days before the day of admission -On examination, patient was found to have very distended abdomen which is tense and noted absent bowel sounds -CT abdomen showed severely dilated large bowel with massive amount of stool in the rectosigmoid junction with rectal thickening. -Dr. Durant was consulted and he recommended surgical consult with no active interventions from his side -CBC at the time of admission showed mildly elevated WBC count 13.3, mild anemia. Potassium is 3.3 Plan -Dr Cramer recommended no surgery as of now and as per chart review, Dr. Cramer did manual disimpaction and extracted large amounts of stool on 05/30/2024 -Started on IV Zosyn and changed to Unasyn (06/02- -as patient is having multiple bowel movements and abdomen is soft, restarted his G-tube feeds # Acute on chronic hypoxic respiratory failure, s/p tracheostomy # Bilateral pneumonia -Patient was on mechanical ventilator Likely due to aspiration versus ventilator associated pneumonia -Chest x-ray done on 05/31 due to worsening shortness of breath showed bilateral new onset infiltrates -Started on Unasyn(06/02 - -Will continue mechanical ventilation. # History of CVA with residual deficit # History of hyperlipidemia -Held antiplatelets for now in view of current medical condition. # History of diabetes mellitus -Patient is on insulin at the facility -HbA1c on 04/2024 is within normal limits -Glucose checks every 6 hourly # Anemia Hemoglobin at the admission is 10.2, likely due to anemia of chronic illness Will continue to monitor CBC and transfuse if needed Hospital Maintenance: Dispo: Telemetry DVT ppx: SCD GI ppx: Protonix Diet: G tube feeds IV lines: Peripheral Code status: Full code Patient plan of care was discussed with the attending physician, Dr. Deras and senior resident Dr. Corin Shaikh, PGY1 Attending Provider Attestation/Addendum I reviewed labs, imaging, EKG, home medications and prior available records. Face to face evaluation was performed by me. I have personally examined the patient and discussed assessment and plan with the IM team. I reviewed the resident note and agree with the plan with exceptions as below. New onset A-fib with RVR Shock Aspiration pneumonia Hypokalemia Hypernatremia Large bowel obstruction Severe constipation Chronic hypoxic respiratory failure History of CVA S/p tracheostomy and PEG tube placement New complication of A-fib with RVR. Started amiodarone drip. BP is stable. He is now downgraded from ICU Aspiration precautions IV Unasyn Aggressive repletion of potassium, monitor potassium level Started water flushes for the hypernatremia, monitor sodium level Status post 2 manual disimpaction's. Had several bowel movements after
--- NOTE | 2024-06-02 15:54 | PC.DIETICIAN ---
Nutrition prescription Jevity 1.2 at 30 ml/hr via PEG tube by pump. Advance 10 ml every 8 hrs to goal rate of 50 ml/hr x 24 hrs. If no IV fluids, water flushes of 125 ml/hr (per MD).
[2024-06-02 15:56] LABS: Anion Gap 15 (7-16); BUN/Creatinine Ratio 18 Ratio (12-20); Blood Urea Nitrogen 16 mg/dL (9-23); Calcium 8.5 mg/dL (8.3-10.6); Calcium (Corrected) 9.3 mg/dL (8.5-10.1); Carbon Dioxide 25.9 mMol/L (20.0-31.0); Chloride 113 mMol/L (98-107); Creatinine (Component) 0.9 mg/dL (0.6-1.3); Estimated Creatinine Clearance 61.2 mL/min (>60); Glucose 118 mg/dL (74-106); Osmolality,Calculated 307 (275-295); Phosphorous 2.5 mg/dL (2.4-5.1); Potassium 2.9 mMol/L (3.4-5.1); Sodium 154 mMol/L (136-145); eGFR > 60 See Note
[2024-06-02] MEDS: DEXTROSE 5% IV (17:35)
[2024-06-02] MEDS: POTASSIUM ACET IV (17:35)
[2024-06-02] MEDS: WATER IV (17:35)
--- NOTE | 2024-06-02 17:50 | PC.RT ---
RT called to room due to desaturations in spo2 while being mechanically ventilated. Fio2 increased from 80% to 100% without improvement. Pt was removed from ventilator and manually ventilated using bag. Pt suctioned without improvement. SOFTWARE CONFIGURATION SPECIALIST called by RN. Bilateral auscultation of lung ansari revealed very little air movement. Levalbuterol breathing treatment given without improvement. Pt was bagged until spo2 increased to 90%, pt was placed back on ventilator. ABG and EKG obtained.
--- NOTE | 2024-06-02 17:54 | XR_ITS ---
Examination: AP chest single view Technique: AP portable supine chest single view Exam date and time: June 02, 2024 1801 hrs. Comparison June 01, 2024 Indications: Low O2 saturation today hypoxia Findings: Marked worsening of the patient's bilateral pneumonia Tracheostomy tube tip 7.3 cm above delmy Normal heart size The osseous structures are intact Impression: Marked worsening of the patient's bilateral pneumonia
[2024-06-02] MEDS: SODIUM CHLORIDE 0.9% 1000 ML 1,000 ML 999 ML IV (18:10)
[2024-06-02 18:28] LABS: Inspired Oxygen, FIO2 21 %
[2024-06-02 18:29] LABS: Base Excess 7 (-3-3); HCO3 32 mEq/L (20-26); O2 Saturation 86 % (91-98); PCO2 44 mmHg (32.0-48.0); pH, Arterial 7.47 (7.35-7.45)
[2024-06-02 18:30] LABS: Allen Test Performed/OK; Puncture Site Right Radial
[2024-06-02 18:33] LABS: PO2 48 mmHg (83-108)
[2024-06-02] MEDS: MORPHINE SULF INJ 10 MG/ML VIAL 2 MG IVP (19:00)
--- NOTE | 2024-06-02 19:00 | PC.NURSE ---
@1750- ELECTRIC LOCOMOTIVE CRANE OPERATOR initiated. Pt soiled and after being cleaned and repositioned O2 dropped to 76% and in respiratory distress. After suctioning pt with minimal secretions, oxygen was sustaining 82%. RT notified and performed a lavage x2 with no ET secretions and oxygen only coming up to 82-85%. RT began bagging pt and ELECTRIC LOCOMOTIVE CRANE OPERATOR was called. MD ordered: updgrade to ICU; Labs (ABG, CMP, CBC, Lactate, Mag, K+); CXR; 1L NS bolus, 2 mg Morphine Pt O2 sats with intermittent drops 79% with FiO2 @100%; intermittent bagging. MD talking with family regarding goals of care and current code status. Current O2 sats 85% Ongoing care at bedside; care endorsed to Vinayak AMES of ICU
[2024-06-02 19:08] LABS: Lactate (Lactic Acid) 3.9 mMol/L (0.4-2.0)
[2024-06-02 19:12] LABS: Basophils % (Auto) 0 % (0-2.5); Eosinophils % (Auto) 0 % (0-10); Hematocrit 36.3 % (41.0-53.0); Hemoglobin 11.7 g/dL (13.5-16.0); Immature Granulocytes % (Auto) 0 % (0-0); Immature Granulocytes Auto 0.03 Thou/mm3 (0.00-0.00); Lymphocytes # (Auto) 0.4 Thou/mm3 (1.0-4.8); Lymphocytes % (Auto) 5 % (10-50); Mean Corpuscular HGB Conc 32.2 g/dl (31.0-37.0); Mean Corpuscular Volume 90 fL (80-100); Monocytes # (Auto) 0.2 Thou/mm3 (0.0-0.8); Monocytes % (Auto) 3 % (0-12); Neutrophils # (Auto) 6.4 Thou/mm3 (1.8-7.7); Neutrophils % (Auto) 92 % (37-80); Nucleated Red Blood Cell # 0.02 Thou/mm3 (0.00-0.00); Nucleated Red Blood Cell % 0 /100 WBC (0); Platelet Count 160 Thou/mm3 (140-440); RDW Standard Deviation 55.5 fL (35.1-43.9); Red Blood Count 4.03 Miln/mm3 (4.50-5.90)
--- NOTE | 2024-06-02 19:46 | PD.RESEVENT ---
Documentation for date of: 06/02/24 Event Note Event Note: Primary team and ICU to had goals of care discussion with patient family members son and daughter and decision-maker patient . We spoke about overall prognosis and patient critical condition family member understood, and they stated that they want to make the patient DNR, we spoke as well about possibility of cardioversion in the setting of A-fib and family member decide they do not want to cardiovert the patient or shocks. Will respect family wishes and POLST was signed. Patient discussed with my attending Dr Tanya Mark MD PGY-3 Disclaimer: Despite multiple revisions, due to the dictation software being used, the document bellow may not be free of grammatical errors including phonetic/typographic errors. However, this does not deter from our commitment to providing health care in the patient's best interest in mind.
--- NOTE | 2024-06-02 20:30 | PD.RESCONSUL ---
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 Today rapid response was called new onset of A-fib with RVR, cardiology was consulted who recommended start amiodarone gtt. and replete electrolytes as necessary keep K+ above >4 and Mg+2 initially, as well another rapid response was called for hypoxia to the low 70s with an FiO2 of 100% for which patient was need to be bagged and ICU team was consulted. We spoke with the family about possibility of cardioversion if patient became unstable about risks of cardioversion including, embolic stroke and even . Primary team and ICU team had a goals of care discussion with patient and family member daughter, son and patient decision maker about patient overall prognosis and current clinical condition and they understood patient overall condition for which they decide to switch CODE STATUS to DNR. cc:: cc: Betty Stokes MD Review of Systems Review of Systems ROS Unobtainable: unobtainable due to mental status and unobtainable due to medical condition Past Medical History Past Medical History NEUROLOGIC: Positive Neurological Disorders, Cerebrovascular Accident and Dementia CARDIAC: Positive Hypercholesterolemia and Hypertension RESPIRATORY: Positive Pneumonia GENITOURINARY: Positive Benign Prostatic Hyperplasia MUSCULOSKELETAL: Positive Musculoskeletal Disorders ENDOCRINE: Positive Endocrine Disorders PSYCHO/SOCIAL: Positive Behavior Problems Surgical History SURGICAL: Positive Abdominal Surgery and Gastrostomy Social History SMOKING STATUS: Unknown if ever smoked SECOND HAND EXPOSURE: No SUBSTANCE USE: does not use Exam Vital Signs Temp Pulse Resp BP Pulse Ox O2 Del Method FiO2 99.9 F 127 H 34 H 96/56 L 95 Mechanical Ventilation 80 06/02/24 16:00 06/02/24 19:54 06/02/24 16:00 06/02/24 19:54 06/02/24 16:00 06/02/24 16:00 06/02/24 16:00 Narrative Exam General: In acute distress, anxious, frail, SpO2 76% on Ambu bag FiO2 100% HEENT: NC/AT, PERRL, EOMI, dry mucous membranes, oropharynx clear. Neck: Supple, No masses, No adenopathy, carotid pulse 2+ bilaterally without bruits, No JVD, normal range of motion. Chest: Symmetrical, atraumatic and with equal expansion , Nontender on palpation no deformity and no crepitus. CVS: Irregular, tachycardic, no murmurs, rubs or gallops perceived during auscultation. Lungs: Increased work of breathing tachypneic, distant breath sounds on bilateral lung ansari Abdomen : Soft, no tenderness to palpation, no guarding ,no rebound, decreased bowel sounds Extremities: No edema, warm well perfused, cap refill less than 2, +2 dp equal bilaterally Skin: Multiple skin ecchymosis Neuro: Difficult to assess due to patient is nonverbal at baseline Psych: Difficult to assess due to patient nonverbal at baseline Results Labs 06/02/24 18:59 06/03/24 02:09 Labs: Short CBC 06/02/24 06/02/24 Range/Units 02:40 18:59 WBC 11.7 H 7.0 D (3.8-10.6) Thou/mm3 Hgb 9.5 L 11.7 L D (13.5-16.0) g/dL Hct 29.5 L 36.3 L (41.0-53.0) % Plt Count 176 160 (140-440) Thou/mm3 [facility] 06/02/24 06/02/24 06/02/24 02:40 10:31 15:30 Sodium 153 H 154 H 154 H Potassium 2.1 L* D 2.2 L* 2.9 L D Chloride 111 H 112 H 113 H Carbon Dioxide 30.3 26.8 25.9 BUN 24 H 19 16 Creatinine 0.8 0.8 0.9 Glucose 70 L 63 L 118 H D Calcium 8.6 8.7 8.5 Liver Function 06/02/24 06/02/24 Range/Units 02:40 15:30 Total Bilirubin 0.4 (0.3-1.2) mg/dL AST 159 H (0-34) U/L ALT 50 H (10-49) U/L Alkaline Phosphatase 73 D (46-116) U/L Albumin 2.7 L D 3.0 L (3.4-4.8) gm/dL ABG Interpretation ABG results: 05/31/24 05/31/24 05/31/24 09:33 14:33 16:21 ABG pH 7.25 L 7.18 L* 7.30 L D ABG pCO2 68 H 78 H* D 57 H D ABG pO2 88 124 H D 69 L D ABG HCO3 30 H 29 H 28 H ABG O2 Saturation 96 99 H 94 ABG Base Excess 2 -1 1 06/01/24 06/02/24 07:51 18:15 ABG pH 7.49 H D 7.47 H ABG pCO2 37 D 44 ABG pO2 49 L* D 48 L* ABG HCO3 28 H 32 H ABG O2 Saturation 89 L 86 L ABG Base Excess 5 H 7 H Quality Measures Quality Measures VTE prophylaxis Advance care planning discussed with:: spouse and child Medications Home Medications and Allergies Home Medications ?Medication ?Instructions ?Recorded ?Confirmed ?Type acetaminophen 325 mg/10.15 mL oral 650 mg feeding tube Q6HR PRN Fever 05/30/24 05/30/24 History solution >101 amoxicillin 400 mg-potassium 5 ml feeding tube BID 05/30/24 05/30/24 History clavulanate 57 mg/5 mL oral suspension aspirin 81 mg tablet,delayed 81 mg feeding tube QDAY 05/30/24 05/30/24 History release calcium 500 mg (as 1 tab feeding tube QDAY 05/30/24 05/30/24 History carbonate)-vitamin D3 5 mcg (200 unit) tablet ipratropium 0.5 mg-albuterol 3 mg 3 ml inhalation Q6H PRN Shortness 05/30/24 05/30/24 History (2.5 mg base)/3 mL nebulization Of Breath Or Wheezing soln magnesium hydroxide 400 mg/5 mL 30 ml feeding tube Q72H PRN 05/30/24 05/30/24 History oral suspension (Milk of Magnesia) Constipation polyethylene glycol 3350 17 gram 17 g feeding tube QDAY PRN 05/30/24 05/30/24 History oral powder packet (Miralax) Constipation quetiapine 25 mg tablet 100 mg feeding tube BID 05/30/24 05/30/24 History sennosides 8.6 mg tablet (senna) 8.6 mg feeding tube BID 05/30/24 05/30/24 History Allergies Allergy/AdvReac Type Severity Reaction Status Date / Time No Known Allergies Allergy Verified 02/05/20 14:36 Visit Medications Acetaminophen (Acetaminophen 120 Mg Supp) 120 mg IN Q6HR PRN PRN Reason: PAIN OR FEVER > 101 Stop: 06/30/24 10:18 Last Admin: 05/31/24 10:49 Dose: 120 mg Acetaminophen (Acetaminophen Lindsey 325 Mg/10 Ml Udc) 650 mg GT Q6HR PRN PRN Reason: FEVER >101 Stop: 07/01/24 10:02 Last Admin: 06/01/24 10:46 Dose: 650 mg Acetylcysteine (Acetylcysteine Rt Lindsey 10% 4 Ml Nebu) 3 ml INH Q4HRRT [facility] Stop: 07/02/24 10:59 Last Admin: 06/02/24 14:14 Dose: 3 ml Dextrose (Dextrose 50%-Water Inj 50 Ml Syringe) 25 ml IV Q15MIN PRN PRN Reason: BG 50-70 responsive npo pt Stop: 07/02/24 12:14 Last Admin: 06/02/24 12:29 Dose: 25 ml Dextrose (Dextrose 50%-Water Inj 50 Ml Syringe) 50 ml IV Q15MIN PRN PRN Reason: BG <50 OR BG <70 & pt unresponsive Stop: 07/02/24 12:14 Enoxaparin Sodium (Enoxaparin Sod Inj 40 Mg/0.4 Ml Syringe) 40 mg SC QDAY [facility] Stop: 06/15/24 08:59 Last Admin: 06/02/24 08:13 Dose: 40 mg Ampicillin Sodium/Sulbactam (Sodium 3 gm/ Sodium Chloride) 100 mls @ 200 mls/hr IV Q6HR [facility] Stop: 06/09/24 11:59 Last Admin: 06/02/24 17:49 Dose: 200 mls/hr Amiodarone HCl/Dextrose (Nexterone Ivpb) 360 mg in 200 mls @ 33.333 mls/hr IV .Q6H [facility] Stop: 06/03/24 07:32 Last Admin: 06/02/24 19:54 Dose: 33.333 mls/hr Lactulose (Lactulose Syrup 20 Gm/30 Ml Udc) 20 gm GT BID [facility]; Protocol Stop: 06/30/24 08:59 Last Admin: 06/02/24 08:14 Dose: Not Given Levalbuterol HCl (Levalbuterol Rt 0.63 Mg/3 Ml Nebu) 0.63 mg INH Q4HRRT [facility] Stop: 06/28/24 10:59 Last Admin: 06/02/24 14:14 Dose: 0.63 mg Ondansetron HCl (Ondansetron Inj 2 Mg/Ml Inj 2 Ml) 4 mg IV Q6HR PRN; Protocol PRN Reason: NAUSEA OR VOMITING Stop: 07/02/24 13:28 Pantoprazole Sodium (Pantoprazole Inj 40 Mg Vial) 40 mg IVP QDAY [facility] Stop: 06/28/24 08:59 Last Admin: 06/02/24 08:14 Dose: 40 mg Discontinued Medications Acetaminophen (Acetaminophen 325 Mg Tablet) 650 mg PO Q6HR PRN PRN Reason: FEVER >101 Stop: 07/01/24 10:02 Bisacodyl (Bisacodyl 10 Mg Supp) 10 mg IN Q8H [facility]; Protocol Stop: 06/30/24 16:29 Last Admin: 06/02/24 07:56 Dose: Not Given Bisacodyl (Bisacodyl 10 Mg Supp) 10 mg IN QDAY [facility]; Protocol Stop: 07/02/24 08:59 Last Admin: 06/02/24 08:16 Dose: Not Given Glycerin (Glycerin, Adult 1 Ea Supp) 1 each IN X1 ONE Stop: 05/29/24 15:30 Last Admin: 05/29/24 23:24 Dose: 1 each Potassium Chloride (Kcl Ivpb) 10 meq in 100 mls @ 100 mls/hr IV X1 ONE Stop: 05/29/24 07:18 Last Infusion: 05/29/24 07:23 Dose: Infused Sodium Chloride (Ns) 1,000 mls @ 999 mls/hr IV .Q1H1M ONE Stop: 05/29/24 07:56 Last Infusion: 05/29/24 08:30 Dose: Infused Cefepime HCl 2 gm/ Sodium (Chloride) 50 mls @ 100 mls/hr IV X1 ONE Stop: 05/29/24 07:25 Last Infusion: 05/29/24 07:46 Dose: Infused Acetaminophen (Ofirmev Inj) 1,000 mg in 100 mls @ 250 mls/hr IV NOW ONE Stop: 05/29/24 07:19 Last Infusion: 05/29/24 07:51 Dose: Infused Vancomycin HCl 2,000 mg/ (Sodium Chloride) 500 mls @ 150 mls/hr IV X1 ONE Stop: 05/29/24 10:16 Last Infusion: 05/29/24 13:15 Dose: Infused Sodium Chloride (Ns) 1,000 mls @ 75 mls/hr IV .[id number] [facility] Stop: 05/29/24 21:55 Last Admin: 05/29/24 09:24 Dose: 75 mls/hr Piperacillin/Tazobactam/Dextrose (Zosyn) 50 mls @ 12.5 mls/hr IV Q8HR [facility]; Protocol Stop: 06/05/24 13:59 Last Admin: 06/02/24 05:30 Dose: 12.5 mls/hr Piperacillin/Tazobactam/Dextrose (Zosyn) 50 mls @ 100 mls/hr IV X1 ONE Stop: 05/29/24 09:14 Last Infusion: 05/29/24 09:52 Dose: Infused Potassium Chloride (Kcl Ivpb) 10 meq in 100 mls @ 100 mls/hr IV Q1H [facility] Stop: 05/29/24 10:37 Last Infusion: 05/29/24 11:38 Dose: Infused Sodium Chloride (Ns) 1,000 mls @ 75 mls/hr IV .[id number] ONE Stop: 05/30/24 06:08 Last Infusion: 05/30/24 19:25 Dose: Infused Potassium Chloride (Kcl Ivpb) 10 meq in 100 mls @ 100 mls/hr IV Q1H [facility] Stop: 05/30/24 12:15 Last Admin: 05/30/24 18:17 Dose: Not Given Potassium Chloride 30 meq/ (Sodium Chloride) 1,015 mls @ 75 mls/hr IV .[id number] [facility]; Protocol Stop: 06/04/24 09:59 Last Admin: 05/31/24 19:46 Dose: Not Given Potassium Chloride (Kcl Ivpb) 10 meq in 100 mls @ 100 mls/hr IV Q1H [facility] Stop: 05/31/24 12:13 Last Admin: 05/31/24 11:39 Dose: 100 mls/hr Vancomycin/Sodium Chloride (Vancomycin/Ns 750 Mg Ivpb) 750 mg in 150 mls @ 120 mls/hr IV BID@1000,2200 [facility]; Protocol Stop: 06/07/24 12:14 Last Infusion: 06/02/24 09:30 Dose: Infused Sodium Chloride (Ns) 1,000 mls @ 999 mls/hr IV .Q1H1M ONE Stop: 05/31/24 13:08 Last Admin: 05/31/24 19:46 Dose: Not Given Sodium Chloride (Ns) 1,000 mls @ 999 mls/hr IV .Q1H1M ONE Stop: 05/31/24 13:08 Last Admin: 05/31/24 19:46 Dose: Not Given Lactated Ringer's (Lactated Ringers) 2,000 mls @ 999 mls/hr IV .Q2H1M ONE Stop: 05/31/24 14:56 Last Admin: 05/31/24 13:23 Dose: 999 mls/hr Acetaminophen (Ofirmev Inj) 1,000 mg in 100 mls @ 250 mls/hr IV Q6HR [facility] Stop: 06/01/24 06:23 Acetaminophen (Ofirmev Inj) 1,000 mg in 100 mls @ 250 mls/hr IV X1 ONE Stop: 05/31/24 17:08 Last Admin: 05/31/24 16:53 Dose: 250 mls/hr Potassium Phosphate (Pot Phos 15 Mmol In Ns 250 Ml) 15 mmol in 250 mls @ 62.5 mls/hr IV Q4H [facility] Stop: 06/01/24 15:09 Last Infusion: 06/02/24 07:56 Dose: Infused Potassium Chloride (Kcl Ivpb) 10 meq in 100 mls @ 100 mls/hr IV Q1H [facility] Stop: 06/01/24 12:53 Last Infusion: 06/02/24 07:56 Dose: Infused Magnesium Sulfate (Magnesium Sulfate Ivpb) 4 gm in 50 mls @ 12.5 mls/hr IV X1 ONE Stop: 06/02/24 06:20 Last Infusion: 06/02/24 07:55 Dose: Infused Potassium Chloride (Kcl Ivpb) 10 meq in 100 mls @ 100 mls/hr IV Q1H [facility] Stop: 06/02/24 07:56 Last Admin: 06/02/24 09:15 Dose: 100 mls/hr Potassium Phosphate (Pot Phos 15 Mmol In Ns 250 Ml) 15 mmol in 250 mls @ 62.5 mls/hr IV X1 ONE Stop: 06/02/24 08:14 Last Admin: 06/02/24 04:16 Dose: 62.5 mls/hr Potassium Phosphate (Pot Phos 15 Mmol In Ns 250 Ml) 15 mmol in 250 mls @ 62.5 mls/hr IV Q4H [facility] Stop: 06/02/24 17:48 Last Admin: 06/02/24 16:51 Dose: 62.5 mls/hr Amiodarone HCl/Dextrose (Nexterone Ivpb) 150 mg in 100 mls @ 600 mls/hr IV .Q10M ONE Stop: 06/02/24 12:24 Last Admin: 06/02/24 12:51 Dose: 600 mls/hr Amiodarone HCl/Dextrose (Nexterone Ivpb) 360 mg in 200 mls @ 33.333 mls/hr IV .Q6H ONE Stop: 06/02/24 18:24 Last Admin: 06/02/24 13:06 Dose: 33.333 mls/hr Amiodarone HCl/Dextrose (Nexterone Ivpb) 360 mg in 200 mls @ 16.667 mls/hr IV .Q12H [facility] Stop: 06/03/24 18:24 Last Admin: 06/02/24 19:48 Dose: Not Given Potassium Acetate 40 meq/ (Dextrose) 520 mls @ 130 mls/hr IV X1 ONE Stop: 06/02/24 18:44 Last Admin: 06/02/24 17:35 Dose: 130 mls/hr Sodium Chloride (Ns) 1,000 mls @ 999 mls/hr IV .Q1H1M ONE Stop: 06/02/24 18:58 Last Admin: 06/02/24 18:10 Dose: 999 mls/hr Amiodarone HCl 200 mg/ (Dextrose) 104 mls @ 600 mls/hr IV X1 ONE Stop: 06/02/24 18:34 Last Admin: 06/02/24 19:47 Dose: Not Given Insulin Human Lispro (Insulin Lispro (Admelog) 1 Unit/0.01 Ml Unit) 4 unit SC X1 ONE Stop: 05/31/24 18:06 Last Admin: 05/31/24 19:45 Dose: Not Given Ipratropium [place] (Ipratropium Rt 0.5 Mg/ 2.5 Ml Nebu) 0.5 mg INH X1 ONE Stop: 05/31/24 12:46 Last Admin: 05/31/24 13:58 Dose: 0.5 mg Lactulose (Lactulose Syrup 20 Gm/30 Ml Udc) 30 gm PO X1 ONE; Protocol Stop: 05/29/24 11:54 Last Admin: 05/29/24 13:47 Dose: Not Given Lactulose (Lactulose Syrup 20 Gm/30 Ml Udc) 30 gm GT X1 ONE; Protocol Stop: 05/29/24 11:54 Last Admin: 05/29/24 13:18 Dose: 30 gm Metoclopramide HCl (Metoclopramide Inj 5 Mg/Ml Vial 2 Ml) 10 mg IVP Q6HR [facility]; Protocol Stop: 06/28/24 14:59 Last Admin: 06/02/24 12:16 Dose: 10 mg Midazolam HCl (Midazolam Inj 1 Mg/Ml Vial 2 Ml) 2 mg IV X1 ONE Stop: 06/02/24 19:02 Last Admin: 06/02/24 19:48 Dose: Not Given Morphine Sulfate (Morphine Sulf Inj 10 Mg/Ml Vial) 2 mg IVP X1 ONE Stop: 06/02/24 18:50 Last Admin: 06/02/24 19:00 Dose: 2 mg Ondansetron HCl (Ondansetron Inj 2 Mg/Ml Inj 2 Ml) 4 mg IV Q6H PRN; Protocol PRN Reason: NAUSEA OR VOMITING Stop: 06/28/24 08:21 Pharmacy Consult (Vancomycin Pharmacy To Dose 1 Each Each) 1 each IV QDAY PRN PRN Reason: PROTOCOL Stop: 06/30/24 11:59 Polyethylene Glycol/Electrolytes ([place]/Nahco3/Ed/Peg (Golytely) 4,000 Ml Btl) 4,000 ml GT X1 ONE Stop: 06/01/24 15:36 Last Admin: 06/01/24 15:46 Dose: 4,000 ml Potassium Chloride (Potassium Chloride 10% 20 Meq/15 Ml Udc) 40 meq GT X1 ONE Stop: 05/31/24 08:16 Last Admin: 05/31/24 08:31 Dose: 40 meq Potassium Chloride (Potassium Chloride 10% 20 Meq/15 Ml Udc) 40 meq GT X1 ONE Stop: 06/01/24 10:55 Last Admin: 06/01/24 13:43 Dose: 40 meq Potassium Chloride (Potassium Chloride 10% 20 Meq/15 Ml Udc) 20 meq GT X1 ONE Stop: 06/01/24 14:01 Last Admin: 06/01/24 17:02 Dose: 20 meq Sodium Chloride (Sodium Chloride Rt 10% 15 Ml Nebu) 5 ml INH X1 ONE Stop: 05/31/24 12:50 Last Admin: 05/31/24 16:50 Dose: Not Given Assessment & Plan Plan 73-year-old male with past medical history of CVA [nonverbal at baseline], chronic peg tube, chronic tracheostomy, hyperlipidemia, diabetes mellitus, recurrent UTIs with resistant organisms, depression, anxiety, history of upper extremity bilateral DVT was brought who was transfer from telemetry floors to ICU due to A-fib with RVR and hypoxia. Neuro: #Acute encephalopathy #CVA with residual deficits Metabolic encephalopathy due to severe constipation, hypoxia, metabolic disturbances. Patient is nonverbal at baseline, per family at bedside he is normally somewhat interactive. Currently patient is responsive only to pain, does not open eyes or track sounds. Cardio: #New onset of A-fib In the setting of acute on chronic hypoxic respiratory failure Patient is found to have tachycardia with heart rate around 150s on 06/02/2024 EKG ordered this morning showed atrial fibrillation with rapid ventricular rate, [id number] score is 3 Cardiology was consulted who recommended to start amiodarone drip ? Amiodarone gtt. per protocol ? Keep potassium above 4 and magnesium above 2 Pulm: #Acute on chronic hypoxic respiratory failure #ARDS #Severe bilateral pneumonia Patient developed worsening hypoxia despite increasing FiO2 on the floors, SpO2 was in the low 70s ,RT start to back the patient with the sats went up to 80% Chest x-ray shows significant worsening bilateral pneumonia -Follow-up ABGs GI: #Large bowel obstruction improving DDx: Nahid's versus fecal impaction with stercoral colitis Patient is having constipation for almost 10 days from now Patient had a bowel movement on 05/25/2024 following enema Gastroenterology was following the patient and tried edema, GoLytely but patient still did not have any bowel movement since 5 days before the day of admission -CT abdomen showed severely dilated large bowel with massive amount of stool in the rectosigmoid junction with rectal thickening. -Dr. Durant was consulted and he recommended surgical consult with no active interventions from his side -Dr Cramer recommended no surgery as of now and as per chart review, Dr. Cramer did manual disimpaction and extracted large amounts of stool on 05/30/2024 -Started on IV Zosyn and changed to Unasyn (06/02- -continue G-tube feeds Renal: #Hypokalemia ? Follow-up electrolytes and replete as necessary Endo: Stable Heme: #Leukocytosis Likely due to infection and reactive to severe abdominal distention. -Follow-up CBC #Normocytic anemia Patient has chronic normocytic anemia, slightly worse than normal currently. -Follow-up CBC ID: #Bacterial pneumonia Patient has severe bilateral pneumonia, worsened by abdominal distention compressing lungs -Vancomycin pharmacy dosing (started 03/31) -Zosyn 3.375 g IV every 8 hour (started 03/29) -Tylenol as needed ? Follow-up CBC Skin/MSK: #Muscle atrophy Secondary to CVA with residual deficit Diet: N.p.o. DVT ppx: Lovenox GI ppx: Protonix Godinez: Yes IV lines: Peripheral IV Code status: DNR Patient discussed with my attending Dr Tanya Mark MD PGY-3 Disclaimer: Despite multiple revisions, due to the dictation software being used, the document bellow may not be free of grammatical errors including phonetic/typographic errors. However, this does not deter from our commitment to providing health care in the patient's best interest in mind. Attending Provider Attestation/Addendum I discussed with and supervised the resident physician who took care of this patient. I agree with the assessment and plan as above. This is a 73-year-old male patient with history of CVA, bedbound, on MV trach FiO2 100%. Patient has a PEG tube. He is on Jevity. The patient had a rapid response secondary to A-fib with RVR currently on amiodarone drip. He is receiving phosphorus replacement IV.
[2024-06-02 21:22] LABS: Alanine Aminotransferase 43 U/L (10-49); Albumin, Serum 2.5 gm/dL (3.4-4.8); Albumin/Globulin Ratio 1.2 (1.2-2.2); Alkaline Phosphatase 67 U/L (46-116); Anion Gap 12 (7-16); Aspartate Amino Transferase 101 U/L (0-34); BUN/Creatinine Ratio 22 Ratio (12-20); Bilirubin,Total 0.2 mg/dL (0.3-1.2); Blood Urea Nitrogen 22 mg/dL (9-23); Calcium 7.3 mg/dL (8.3-10.6); Calcium (Corrected) 8.5 mg/dL (8.5-10.1); Carbon Dioxide 28.9 mMol/L (20.0-31.0); Chloride 113 mMol/L (98-107); Estimated Creatinine Clearance 55.1 mL/min (>60); Globulin 2.1 gm/dL (2.3-3.5); Glucose 76 mg/dL (74-106); Magnesium 2.1 mg/dL (1.6-2.6); Osmolality,Calculated 307 (275-295); Phosphorous 1.3 mg/dL (2.4-5.1); Sodium 154 mMol/L (136-145); Total Protein 4.6 gm/dL (5.7-8.2); eGFR > 60 See Note
[2024-06-02 21:25] LABS: Potassium 1.7 mMol/L (3.4-5.1)
[2024-06-02] MEDS: POTASSIUM CHLORIDE 10% 20 MEQ/15 ML UDC 40 MEQ GT (21:56)
[2024-06-02] MEDS: LACTULOSE SYRUP 20 GM/30 ML UDC GT (21:56)
[2024-06-02 22:06] LABS: Reflex Lactate? Y
[2024-06-02 23:12] LABS: Lactic Acid, 3 HR 3.8 mMol/L (0.4-2.0)
[2024-06-03] VITALS (78 sets, daily range): BP systolic 72–114; BP diastolic 39–82; PULSE 81–122; RESP 20–321; TEMP 36.1–37.8; O2SAT 9–102
[2024-06-03] MEDS: POT PHOS 15 mMol in NS 250 ML 15 MMOL/250 ML BAG 62.5 MMOL IV ×3 (00:32→08:43)
[2024-06-03] MEDS: POTASSIUM CHL 10 mEq IVPB 10 MEQ/100 ML BAG 100 MEQ IV (00:55)
[2024-06-03] MEDS: AMIODARONE 360 MG IVPB 360 MG/200 ML BAG 33.333 MG IV (02:17)
[2024-06-03] MEDS: LEVALBUTEROL RT 0.63 MG/3 ML NEBU INH ×3 (02:41→11:14)
[2024-06-03 02:43] LABS: Alanine Aminotransferase 42 U/L (10-49); Albumin, Serum 2.4 gm/dL (3.4-4.8); Albumin/Globulin Ratio 1.1 (1.2-2.2); Alkaline Phosphatase 59 U/L (46-116); Anion Gap 15 (7-16); Aspartate Amino Transferase 112 U/L (0-34); BUN/Creatinine Ratio 16 Ratio (12-20); Bilirubin,Total 0.2 mg/dL (0.3-1.2); Blood Urea Nitrogen 23 mg/dL (9-23); Calcium 7.9 mg/dL (8.3-10.6); Calcium (Corrected) 9.2 mg/dL (8.5-10.1); Carbon Dioxide 26.4 mMol/L (20.0-31.0); Chloride 115 mMol/L (98-107); Creatinine (Component) 1.4 mg/dL (0.6-1.3); Estimated Creatinine Clearance 39.3 mL/min (>60); Globulin 2.1 gm/dL (2.3-3.5); Glucose 106 mg/dL (74-106); Osmolality,Calculated 312 (275-295); Sodium 156 mMol/L (136-145); Total Protein 4.5 gm/dL (5.7-8.2); eGFR 53 See Note
[2024-06-03 02:46] LABS: Phosphorous 0.9 mg/dL (2.4-5.1); Potassium 1.9 mMol/L (3.4-5.1)
[2024-06-03] MEDS: POTASSIUM CHLORIDE 10% 20 MEQ/15 ML UDC 60 MEQ GT (03:50)
[2024-06-03] MEDS: AMPICILLIN/SULBAC INJ 3 GM in SODIUM CHLORIDE 0.9% (P) 100 ML IV (05:18)
[2024-06-03 07:26] LABS: Albumin, Serum 2.7 gm/dL (3.4-4.8); Anion Gap 14 (7-16); BUN/Creatinine Ratio 16 Ratio (12-20); Blood Urea Nitrogen 27 mg/dL (9-23); Calcium 7.5 mg/dL (8.3-10.6); Calcium (Corrected) 8.5 mg/dL (8.5-10.1); Carbon Dioxide 26.1 mMol/L (20.0-31.0); Chloride 114 mMol/L (98-107); Creatinine (Component) 1.7 mg/dL (0.6-1.3); Estimated Creatinine Clearance 32.4 mL/min (>60); Glucose 113 mg/dL (74-106); Magnesium 2.2 mg/dL (1.6-2.6); Osmolality,Calculated 311 (275-295); Phosphorous 1.6 mg/dL (2.4-5.1); Sodium 154 mMol/L (136-145); eGFR 42 See Note
[2024-06-03] MEDS: ACETYLCYSTEINE RT SOL 10% 4 ML NEBU 3 ML INH (07:27)
[2024-06-03 07:37] LABS: Basophils % (Auto) 1 % (0-2.5); Eosinophils % (Auto) 0 % (0-10); Hematocrit 29.1 % (41.0-53.0); Hemoglobin 9.4 g/dL (13.5-16.0); Immature Granulocytes % (Auto) 1 % (0-0); Immature Granulocytes Auto 0.05 Thou/mm3 (0.00-0.00); Lymphocytes # (Auto) 0.5 Thou/mm3 (1.0-4.8); Lymphocytes % (Auto) 6 % (10-50); Mean Corpuscular HGB Conc 32.3 g/dl (31.0-37.0); Mean Corpuscular Hemoglobin 28.8 pg (25.0-35.0); Mean Corpuscular Volume 89 fL (80-100); Monocytes # (Auto) 0.4 Thou/mm3 (0.0-0.8); Monocytes % (Auto) 5 % (0-12); Neutrophils # (Auto) 7.2 Thou/mm3 (1.8-7.7); Neutrophils % (Auto) 88 % (37-80); Nucleated Red Blood Cell # 0.02 Thou/mm3 (0.00-0.00); Nucleated Red Blood Cell % 0 /100 WBC (0); Platelet Count 125 Thou/mm3 (140-440); RDW Standard Deviation 54.4 fL (35.1-43.9); Red Blood Count 3.26 Miln/mm3 (4.50-5.90); White Blood Count 8.3 Thou/mm3 (3.8-10.6)
[2024-06-03] MEDS: POTASSIUM CHLORIDE 10% 20 MEQ/15 ML UDC 40 MEQ GT (08:46)
[2024-06-03] MEDS: PANTOPRAZOLE INJ 40 MG VIAL IVP (08:46)
[2024-06-03] MEDS: ENOXAPARIN SOD INJ 40 MG/0.4 ML SYRINGE SC (08:46)
--- NOTE | 2024-06-03 09:16 | PC.SS ---
Update: Patient has been upgraded to ICU. Code status is DNR.
[2024-06-03] MEDS: Norepinephrine/D5W 8mg/250ml 8 MG/250 ML BAG 6.572 MG IV (09:40)
--- NOTE | 2024-06-03 09:41 | XR_ITS ---
Examination: AP chest single view TECHNIQUE: AP portable semiupright chest single view Exam date and time: June 03, 2024 0954 hours Comparison June 02, 2024 INDICATIONS: Hypoxic respiratory failure this week FINDINGS: Severe bilateral lung opacity Tracheostomy tube tip 7.5 cm above delmy Normal heart size IMPRESSION: Severe bilateral pneumonia ARDS
--- NOTE | 2024-06-03 09:58 | ESCONSULT_ITS ---
HPI Data of Consult Requesting Physician: Ady Martínez MD Admitting Provider: Leonid Deras MD Attending Provider: Ady Martínez MD Primary Care Provider: Juan Rolle MD Consult Narrative Reason for consult: A-Fib RVR History of present illness: 73-year-old male with past medical history of 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 In the ED patient came in from subacute due to abdominal distention and constipation for the last 5 days prior to admission with no bowel movement in these days. Initially patient was tachycardic, tachypneic, hypertensive, and afebrile. Initial labs showed WBC 17.3, Hgb 10.4, sodium 142, potassium 2.2, bicarb 27.9, BUN 26, creatinine 0.9, magnesium 2.1, AST 43, and alkaline phosphatase 152. Initial imaging included abdomen/pelvis CT which showed thickening of the rectal wall as well as stool in the rectosigmoid region, chest x-ray which showed some pneumonia of right base, abdomen x-ray which showed colonic distention, scrotal ultrasound shows some thickening of the scrotal luna bilaterally, but no mass. Initial EKG shows sinus tachycardia. Repeat EKG on 05/31/2024 that showed sinus rhythm EKG on 06/02/2024 showed A-fib with RVR and at this time patient's potassium was 2.9. Most of the history was taken per chart review as patient is nonverbal at baseline and there was no family at bedside during my assessment. Throughout the hospital course patient had GI consulted due to constipation and abdominal distention, but Fleet enemas as well as manual disimpaction were unsuccessful. Patient then had general surgery consulted due to this, but recommended no surgery at this time. Throughout the hospital stay patient had a rapid response on 05/31/2024 called due to desaturation and abnormal breathing. During this rapid it was found that the patient had a temperature of 101, chest x-ray showed bilateral pneumonia, and. ABG showed mild respiratory acidosis. On the same day patient had another rapid response called later in the afternoon due to hypotension and he was given 2 L of normal saline boluses and patient was upgraded to the ICU shortly. Patient had multiple bowel movements throughout his hospital stay. He was upgraded again to the medical floors on 06/02/2024. Patient went into A-fib with RVR on 06/02/2024, but at this time family decided to switch patient from full code to DNR/DNI and they did not want to proceed with cardioversion at this time. Patient was again upgraded to the ICU and placed on amiodarone drip. Cardiology was consulted due to A-fib with RVR. PMH:CVA (nonverbal at baseline), hyperlipidemia, DM 2, depression, anxiety, chronic PEG tube and tracheostomy, recurrent UTIs, and bilateral upper extremity DVT cc:: cc: Ady Martínez MD Review of Systems Review of Systems ROS Unobtainable: unobtainable due to medical condition Past Medical History Past Medical History Comments PMH COMMENT: PMH:CVA (nonverbal at baseline), hyperlipidemia, DM 2, depression, anxiety, chronic PEG tube and tracheostomy, recurrent UTIs, and bilateral upper extremity DVT Exam Vital Signs Temp Pulse Resp BP Pulse Ox O2 Del Method O2 Flow Rate 100.0 F 88 28 H 113/82 96 Trach Collar 15 06/03/24 04:00 06/03/24 07:27 06/03/24 07:27 06/03/24 07:00 06/03/24 07:27 06/02/24 20:00 06/02/24 17:50 FiO2 100 06/03/24 07:27 Narrative Exam General: Nonverbal and unresponsive. Eyes: Pupils were difficult to assess due to cataracts Ears: No visible ear discharge Nose: No visible nasal discharge. Mouth/Throat: Dry mucous membranes, no redness, no lesions. Neck: Neck supple, no cervical lymphadenopathy. Lungs: Bronchial breath sounds bilateral Cardio: Normal S1/S2, irregular rhythm, no murmurs, no JVD Abdomen: Soft no palpable masses, peristalsis present, no guarding or rebound, PEG tube in place, 2 small 1 to 2 cm dry near the umbilicus wounds Extremities: Symmetrical, no significant deformities, 2+ peripheral edema and 1+ bilateral upper extremity swelling peripheral pulses presents. Skin: No rashes, no lesions, warm to touch. Neuro: Cannot be assessed due to patient's medical condition Psych: Flat affect Results Labs 06/03/24 05:46 06/03/24 05:46 Labs: Short CBC 06/02/24 06/03/24 Range/Units 18:59 05:46 WBC 7.0 D 8.3 (3.8-10.6) Thou/mm3 Hgb 11.7 L D 9.4 L D (13.5-16.0) g/dL Hct 36.3 L 29.1 L (41.0-53.0) % Plt Count 160 125 L D (140-440) Thou/mm3 BMP 06/02/24 06/02/24 06/02/24 10:31 15:30 20:37 Sodium 154 H 154 H 154 H Potassium 2.2 L* 2.9 L D 1.7 L* D Chloride 112 H 113 H 113 H Carbon Dioxide 26.8 25.9 28.9 BUN 19 16 22 Creatinine 0.8 0.9 1.0 Glucose 63 L 118 H D 76 Calcium 8.7 8.5 7.3 L 06/03/24 06/03/24 02:09 05:46 Sodium 156 H 154 H Potassium 1.9 L* 2.0 L* Chloride 115 H 114 H Carbon Dioxide 26.4 26.1 BUN 23 27 H Creatinine 1.4 H 1.7 H Glucose 106 113 H Calcium 7.9 L 7.5 L Liver Function 06/02/24 06/02/24 06/03/24 Range/Units 15:30 20:37 02:09 Total Bilirubin 0.2 L 0.2 L (0.3-1.2) mg/dL AST 101 H 112 H (0-34) U/L ALT 43 42 (10-49) U/L Alkaline Phosphatase 67 59 (46-116) U/L Albumin 3.0 L 2.5 L D 2.4 L (3.4-4.8) gm/dL 06/03/24 Range/Units 05:46 Total Bilirubin (0.3-1.2) mg/dL AST (0-34) U/L ALT (10-49) U/L Alkaline Phosphatase (46-116) U/L Albumin 2.7 L (3.4-4.8) gm/dL ABG Interpretation ABG results: 05/31/24 05/31/24 05/31/24 09:33 14:33 16:21 ABG pH 7.25 L 7.18 L* 7.30 L D ABG pCO2 68 H 78 H* D 57 H D ABG pO2 88 124 H D 69 L D ABG HCO3 30 H 29 H 28 H ABG O2 Saturation 96 99 H 94 ABG Base Excess 2 -1 1 06/01/24 06/02/24 07:51 18:15 ABG pH 7.49 H D 7.47 H ABG pCO2 37 D 44 ABG pO2 49 L* D 48 L* ABG HCO3 28 H 32 H ABG O2 Saturation 89 L 86 L ABG Base Excess 5 H 7 H Quality Measures Quality Measures VTE prophylaxis Advance care planning discussed with:: patient Medications Home Medications and Allergies Home Medications ?Medication ?Instructions ?Recorded ?Confirmed ?Type acetaminophen 325 mg/10.15 mL oral 650 mg feeding tube Q6HR PRN Fever 05/30/24 05/30/24 History solution >101 amoxicillin 400 mg-potassium 5 ml feeding tube BID 05/30/24 05/30/24 History clavulanate 57 mg/5 mL oral suspension aspirin 81 mg tablet,delayed 81 mg feeding tube QDAY 05/30/24 05/30/24 History release calcium 500 mg (as 1 tab feeding tube QDAY 05/30/24 05/30/24 History carbonate)-vitamin D3 5 mcg (200 unit) tablet ipratropium 0.5 mg-albuterol 3 mg 3 ml inhalation Q6H PRN Shortness 05/30/24 05/30/24 History (2.5 mg base)/3 mL nebulization Of Breath Or Wheezing soln magnesium hydroxide 400 mg/5 mL 30 ml feeding tube Q72H PRN 05/30/24 05/30/24 History oral suspension (Milk of Magnesia) Constipation polyethylene glycol 3350 17 gram 17 g feeding tube QDAY PRN 05/30/24 05/30/24 History oral powder packet (Miralax) Constipation quetiapine 25 mg tablet 100 mg feeding tube BID 05/30/24 05/30/24 History sennosides 8.6 mg tablet (senna) 8.6 mg feeding tube BID 05/30/24 05/30/24 History Allergies Allergy/AdvReac Type Severity Reaction Status Date / Time No Known Allergies Allergy Verified 08/20/20 14:36 Visit Medications Acetaminophen (Acetaminophen 120 Mg Supp) 120 mg NC Q6HR PRN; Protocol PRN Reason: PAIN OR FEVER > 101 Stop: 06/30/24 10:18 Last Admin: 05/31/24 10:49 Dose: 120 mg Acetaminophen (Acetaminophen Lindsey 325 Mg/10 Ml Udc) 650 mg GT Q6HR PRN PRN Reason: FEVER >101 Stop: 07/01/24 10:02 Last Admin: 06/01/24 10:46 Dose: 650 mg Acetylcysteine (Acetylcysteine Rt Lindsey 10% 4 Ml Nebu) 3 ml INH Q4HRRT [facility] Stop: 07/02/24 10:59 Last Admin: 06/03/24 07:27 Dose: 3 ml Dextrose (Dextrose 50%-Water Inj 50 Ml Syringe) 25 ml IV Q15MIN PRN PRN Reason: BG 50-70 responsive npo pt Stop: 07/02/24 12:14 Last Admin: 06/02/24 23:41 Dose: 25 ml Dextrose (Dextrose 50%-Water Inj 50 Ml Syringe) 50 ml IV Q15MIN PRN PRN Reason: BG <50 OR BG <70 & pt unresponsive Stop: 07/02/24 12:14 Enoxaparin Sodium (Enoxaparin Sod Inj 40 Mg/0.4 Ml Syringe) 40 mg SC QDAY [facility] Stop: 06/15/24 08:59 Last Admin: 06/03/24 08:46 Dose: 40 mg Ampicillin Sodium/Sulbactam (Sodium 3 gm/ Sodium Chloride) 100 mls @ 200 mls/hr IV Q6HR [facility] Stop: 06/09/24 11:59 Last Admin: 06/03/24 05:18 Dose: 200 mls/hr Potassium Phosphate (Pot Phos 15 Mmol In Ns 250 Ml) 15 mmol in 250 mls @ 62.5 mls/hr IV Q4H [facility] Stop: 06/03/24 11:01 Last Admin: 06/03/24 08:43 Dose: 62.5 mls/hr Lactulose (Lactulose Syrup 20 Gm/30 Ml Udc) 20 gm GT BID [facility]; Protocol Stop: 06/30/24 08:59 Last Admin: 06/03/24 08:46 Dose: Not Given Levalbuterol HCl (Levalbuterol Rt 0.63 Mg/3 Ml Nebu) 0.63 mg INH Q4HRRT [facility] Stop: 06/28/24 10:59 Last Admin: 06/03/24 07:27 Dose: 0.63 mg Ondansetron HCl (Ondansetron Inj 2 Mg/Ml Inj 2 Ml) 4 mg IV Q6HR PRN; Protocol PRN Reason: NAUSEA OR VOMITING Stop: 07/02/24 13:28 Pantoprazole Sodium (Pantoprazole Inj 40 Mg Vial) 40 mg IVP QDAY [facility] Stop: 06/28/24 08:59 Last Admin: 06/03/24 08:46 Dose: 40 mg Potassium Chloride (Potassium Chloride 10% 20 Meq/15 Ml Udc) 20 meq GT X1 ONE Stop: 06/03/24 10:01 Discontinued Medications Acetaminophen (Acetaminophen 325 Mg Tablet) 650 mg PO Q6HR PRN PRN Reason: FEVER >101 Stop: 07/01/24 10:02 Bisacodyl (Bisacodyl 10 Mg Supp) 10 mg NC Q8H [facility]; Protocol Stop: 06/30/24 16:29 Last Admin: 06/02/24 07:56 Dose: Not Given Bisacodyl (Bisacodyl 10 Mg Supp) 10 mg NC QDAY [facility]; Protocol Stop: 07/02/24 08:59 Last Admin: 06/02/24 08:16 Dose: Not Given Glycerin (Glycerin, Adult 1 Ea Supp) 1 each NC X1 ONE Stop: 05/29/24 15:30 Last Admin: 05/29/24 23:24 Dose: 1 each Potassium Chloride (Kcl Ivpb) 10 meq in 100 mls @ 100 mls/hr IV X1 ONE Stop: 05/29/24 07:18 Last Infusion: 05/29/24 07:23 Dose: Infused Sodium Chloride (Ns) 1,000 mls @ 999 mls/hr IV .Q1H1M ONE Stop: 05/29/24 07:56 Last Infusion: 05/29/24 08:30 Dose: Infused Cefepime HCl 2 gm/ Sodium (Chloride) 50 mls @ 100 mls/hr IV X1 ONE Stop: 05/29/24 07:25 Last Infusion: 05/29/24 07:46 Dose: Infused Acetaminophen (Ofirmev Inj) 1,000 mg in 100 mls @ 250 mls/hr IV NOW ONE Stop: 05/29/24 07:19 Last Infusion: 05/29/24 07:51 Dose: Infused Vancomycin HCl 2,000 mg/ (Sodium Chloride) 500 mls @ 150 mls/hr IV X1 ONE Stop: 05/29/24 10:16 Last Infusion: 05/29/24 13:15 Dose: Infused Sodium Chloride (Ns) 1,000 mls @ 75 mls/hr IV .[id number] [facility] Stop: 05/29/24 21:55 Last Admin: 05/29/24 09:24 Dose: 75 mls/hr Piperacillin/Tazobactam/Dextrose (Zosyn) 50 mls @ 12.5 mls/hr IV Q8HR [facility]; Protocol Stop: 06/05/24 13:59 Last Infusion: 06/03/24 08:30 Dose: Infused Piperacillin/Tazobactam/Dextrose (Zosyn) 50 mls @ 100 mls/hr IV X1 ONE Stop: 05/29/24 09:14 Last Infusion: 05/29/24 09:52 Dose: Infused Potassium Chloride (Kcl Ivpb) 10 meq in 100 mls @ 100 mls/hr IV Q1H [facility] Stop: 05/29/24 10:37 Last Infusion: 05/29/24 11:38 Dose: Infused Sodium Chloride (Ns) 1,000 mls @ 75 mls/hr IV .[id number] ONE Stop: 05/30/24 06:08 Last Infusion: 05/30/24 19:25 Dose: Infused Potassium Chloride (Kcl Ivpb) 10 meq in 100 mls @ 100 mls/hr IV Q1H [facility] Stop: 05/30/24 12:15 Last Admin: 05/30/24 18:17 Dose: Not Given Potassium Chloride 30 meq/ (Sodium Chloride) 1,015 mls @ 75 mls/hr IV .[id number] [facility]; Protocol Stop: 06/04/24 09:59 Last Admin: 05/31/24 19:46 Dose: Not Given Potassium Chloride (Kcl Ivpb) 10 meq in 100 mls @ 100 mls/hr IV Q1H [facility] Stop: 05/31/24 12:13 Last Admin: 05/31/24 11:39 Dose: 100 mls/hr Vancomycin/Sodium Chloride (Vancomycin/Ns 750 Mg Ivpb) 750 mg in 150 mls @ 120 mls/hr IV BID@1000,2200 [facility]; Protocol Stop: 06/07/24 12:14 Last Infusion: 06/02/24 09:30 Dose: Infused Sodium Chloride (Ns) 1,000 mls @ 999 mls/hr IV .Q1H1M ONE Stop: 05/31/24 13:08 Last Admin: 05/31/24 19:46 Dose: Not Given Sodium Chloride (Ns) 1,000 mls @ 999 mls/hr IV .Q1H1M ONE Stop: 05/31/24 13:08 Last Admin: 05/31/24 19:46 Dose: Not Given Lactated Ringer's (Lactated Ringers) 2,000 mls @ 999 mls/hr IV .Q2H1M ONE Stop: 05/31/24 14:56 Last Admin: 05/31/24 13:23 Dose: 999 mls/hr Acetaminophen (Ofirmev Inj) 1,000 mg in 100 mls @ 250 mls/hr IV Q6HR [facility] Stop: 06/01/24 06:23 Acetaminophen (Ofirmev Inj) 1,000 mg in 100 mls @ 250 mls/hr IV X1 ONE Stop: 05/31/24 17:08 Last Admin: 05/31/24 16:53 Dose: 250 mls/hr Potassium Phosphate (Pot Phos 15 Mmol In Ns 250 Ml) 15 mmol in 250 mls @ 62.5 mls/hr IV Q4H [facility] Stop: 06/01/24 15:09 Last Infusion: 06/02/24 07:56 Dose: Infused Potassium Chloride (Kcl Ivpb) 10 meq in 100 mls @ 100 mls/hr IV Q1H [facility] Stop: 06/01/24 12:53 Last Infusion: 06/02/24 07:56 Dose: Infused Magnesium Sulfate (Magnesium Sulfate Ivpb) 4 gm in 50 mls @ 12.5 mls/hr IV X1 ONE Stop: 06/02/24 06:20 Last Infusion: 06/02/24 07:55 Dose: Infused Potassium Chloride (Kcl Ivpb) 10 meq in 100 mls @ 100 mls/hr IV Q1H [facility] Stop: 06/02/24 07:56 Last Infusion: 06/03/24 08:29 Dose: Infused Potassium Phosphate (Pot Phos 15 Mmol In Ns 250 Ml) 15 mmol in 250 mls @ 62.5 mls/hr IV X1 ONE Stop: 06/02/24 08:14 Last Admin: 06/02/24 04:16 Dose: 62.5 mls/hr Potassium Phosphate (Pot Phos 15 Mmol In Ns 250 Ml) 15 mmol in 250 mls @ 62.5 mls/hr IV Q4H [facility] Stop: 06/02/24 17:48 Last Infusion: 06/03/24 08:30 Dose: Infused Amiodarone HCl/Dextrose (Nexterone Ivpb) 150 mg in 100 mls @ 600 mls/hr IV .Q10M ONE Stop: 06/02/24 12:24 Last Infusion: 06/03/24 08:30 Dose: Infused Amiodarone HCl/Dextrose (Nexterone Ivpb) 360 mg in 200 mls @ 33.333 mls/hr IV .Q6H ONE Stop: 06/02/24 18:24 Last Infusion: 06/03/24 08:30 Dose: Infused Amiodarone HCl/Dextrose (Nexterone Ivpb) 360 mg in 200 mls @ 16.667 mls/hr IV .Q12H [facility] Stop: 06/03/24 18:24 Last Admin: 06/02/24 19:48 Dose: Not Given Potassium Acetate 40 meq/ (Dextrose) 520 mls @ 130 mls/hr IV X1 ONE Stop: 06/02/24 18:44 Last Infusion: 06/03/24 08:29 Dose: Infused Sodium Chloride (Ns) 1,000 mls @ 999 mls/hr IV .Q1H1M ONE Stop: 06/02/24 18:58 Last Infusion: 06/03/24 09:17 Dose: Infused Amiodarone HCl 200 mg/ (Dextrose) 104 mls @ 600 mls/hr IV X1 ONE Stop: 06/02/24 18:34 Last Admin: 06/02/24 19:47 Dose: Not Given Amiodarone HCl/Dextrose (Nexterone Ivpb) 360 mg in 200 mls @ 33.333 mls/hr IV .Q6H [facility] Stop: 06/03/24 07:32 Last Infusion: 06/03/24 08:30 Dose: Infused Potassium Chloride (Kcl Ivpb) 10 meq in 100 mls @ 100 mls/hr IV Q1H [facility] Stop: 06/03/24 01:28 Last Infusion: 06/03/24 08:29 Dose: Infused Potassium Phosphate (Pot Phos 15 Mmol In Ns 250 Ml) 15 mmol in 250 mls @ 62.5 mls/hr IV X1 ONE Stop: 06/03/24 03:39 Last Infusion: 06/03/24 08:30 Dose: Infused Insulin Human Lispro (Insulin Lispro (Admelog) 1 Unit/0.01 Ml Unit) 4 unit SC X1 ONE Stop: 05/31/24 18:06 Last Admin: 05/31/24 19:45 Dose: Not Given Ipratropium [place] (Ipratropium Rt 0.5 Mg/ 2.5 Ml Nebu) 0.5 mg INH X1 ONE Stop: 05/31/24 12:46 Last Admin: 05/31/24 13:58 Dose: 0.5 mg Lactulose (Lactulose Syrup 20 Gm/30 Ml Udc) 30 gm PO X1 ONE; Protocol Stop: 05/29/24 11:54 Last Admin: 05/29/24 13:47 Dose: Not Given Lactulose (Lactulose Syrup 20 Gm/30 Ml Udc) 30 gm GT X1 ONE; Protocol Stop: 05/29/24 11:54 Last Admin: 05/29/24 13:18 Dose: 30 gm Metoclopramide HCl (Metoclopramide Inj 5 Mg/Ml Vial 2 Ml) 10 mg IVP Q6HR [facility]; Protocol Stop: 06/28/24 14:59 Last Admin: 06/02/24 12:16 Dose: 10 mg Midazolam HCl (Midazolam Inj 1 Mg/Ml Vial 2 Ml) 2 mg IV X1 ONE Stop: 06/02/24 19:02 Last Admin: 06/02/24 19:48 Dose: Not Given Morphine Sulfate (Morphine Sulf Inj 10 Mg/Ml Vial) 2 mg IVP X1 ONE Stop: 06/02/24 18:50 Last Admin: 06/02/24 19:00 Dose: 2 mg Ondansetron HCl (Ondansetron Inj 2 Mg/Ml Inj 2 Ml) 4 mg IV Q6H PRN; Protocol PRN Reason: NAUSEA OR VOMITING Stop: 06/28/24 08:21 Pharmacy Consult (Vancomycin Pharmacy To Dose 1 Each Each) 1 each IV QDAY PRN PRN Reason: PROTOCOL Stop: 06/30/24 11:59 Polyethylene Glycol/Electrolytes ([place]/Nahco3/Ed/Peg (Golytely) 4,000 Ml Btl) 4,000 ml GT X1 ONE Stop: 06/01/24 15:36 Last Admin: 06/01/24 15:46 Dose: 4,000 ml Potassium Chloride (Potassium Chloride 10% 20 Meq/15 Ml Udc) 40 meq GT X1 ONE Stop: 05/31/24 08:16 Last Admin: 05/31/24 08:31 Dose: 40 meq Potassium Chloride (Potassium Chloride 10% 20 Meq/15 Ml Udc) 40 meq GT X1 ONE Stop: 06/01/24 10:55 Last Admin: 06/01/24 13:43 Dose: 40 meq Potassium Chloride (Potassium Chloride 10% 20 Meq/15 Ml Udc) 20 meq GT X1 ONE Stop: 06/01/24 14:01 Last Admin: 06/01/24 17:02 Dose: 20 meq Potassium Chloride (Potassium Chloride 10% 20 Meq/15 Ml Udc) 40 meq GT X1 ONE Stop: 06/02/24 21:28 Last Admin: 06/02/24 21:56 Dose: 40 meq Potassium Chloride (Potassium Chloride 10% 20 Meq/15 Ml Udc) 60 meq GT X1 ONE Stop: 06/03/24 02:54 Last Admin: 06/03/24 03:50 Dose: 60 meq Potassium Chloride (Potassium Chloride 10% 20 Meq/15 Ml Udc) 40 meq GT X1 ONE Stop: 06/03/24 07:43 Last Admin: 06/03/24 08:46 Dose: 40 meq Sodium Chloride (Sodium Chloride Rt 10% 15 Ml Nebu) 5 ml INH X1 ONE Stop: 05/31/24 12:50 Last Admin: 05/31/24 16:50 Dose: Not Given Assessment & Plan Plan 73-year-old male with past medical history of 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 1. A-fib with RVR, new onset 2. Hypokalemia ?Patient developed A-fib with RVR on 06/02/2024 ?Initial EKG showed on admission sinus tachycardia. ?Repeat EKG on 05/31/2024 that showed sinus rhythm ?EKG on 06/02/2024 showed A-fib with RVR and at this time patient's potassium was 2.9. ?Patient is currently DNR/DNI as per family's wishes ? Patient' family did not want any cardioversion at this time. Plan: ?Continue amiodarone drip for now and add amiodarone 200 p.o BID ?Recommend start patient on Eliquis 5 mg twice daily ? Recommend to keep potassium magnesium above 4 and 2 respectively to avoid any further arrhythmias ?Recommend primary care team to have goals of care discussion 3. Acute on chronic hypoxic respiratory failure 4. Bilateral community-acquired pneumonia versus hospital-acquired pneumonia ? Continue management as per primary care team 5. Large bowel obstruction ?Continue management as per primary care team 6. CVA with residual deficits 7. Chronic PEG tube and tracheostomy ?Continue current management per primary care team 8. DM2 ? Continue current management as per primary care team 9. Bilateral upper extremity DVTs ? Continue current management as per primary care team 10. Anxiety 11. Depression ? Continue current management as per primary care team 12. Recurrent UTIs ? Continue current management as per primary care team Continue rest of management as per primary team. We are grateful to be able to participate in Mr. Sosa' care. Thank you for the consult Plan of care discussed with attending Perfect Binder Feeder Offbearer, Dr. Georgia Mcmahan MD PGY-1 Attending Provider Attestation/Addendum I have personally seen and examined the patient separately on the yesterday and discussed the plan of care with the resident. I reviewed the resident Dr. Allen consultation progress note and agree with the resident findings and plan in the note above and have also edited the documentation to reflect my findings and plan. A 73-year-old male with multiple comorbidities including CVA nonverbal at baseline, tracheostomy as well as PEG tube for feeding along with this is a function of diabetes mellitus, depression, anxiety, recurrent UTIs, bilateral upper extremity DVT and CVA was admitted to the hospital for a large bowel obstruction secondary to fecal impaction. Cardiology was consulted for the atrial fibrillation with RVR and uncontrolled heart rate and patient was hypotensive. Requested further evaluation for cardioversion for the patient. Patient was already on amiodarone drip but rate appeared to be uncontrolled and patient was severely hypokalemic secondary to?severe diarrhea. Evaluated the patient at the bedside and patient appeared to be in some respiratory distress but his heart rate has been well-controlled around 110-130 bpm and blood pressure is on the lower side with systolics of around the in the 80 mmHg range. Primary team and ICU team already spoke to the family about the cardioversion and family had multiple questions regarding the same. Answered the questions in detail with the family including all the risk benefits and alternatives. Family was considering CODE STATUS change and speaking to each other for now. They did not want to do cardioversion at the present point of time and recommend to continue medical management for now. Recommended to start the patient on amiodarone 400 mg twice daily for tonight orally as outpatient QTc appeared to be normal and recommend to check the EKG tomorrow morning. Recommended to continue amiodarone drip at 1 Mg per for now as this may need higher doses to load the amiodarone. Currently digoxin now given the severe hypokalemia. Recommend to aggressively replace the potassium and chloride every 2 hours with the G-tube and check BMP every 4-6 hours and the patient can be given additional dose of digoxin if needed. Diltiazem and beta- blockers are contraindicated because of the low blood pressure and can be started at a later date when patient is Continue heparin drip for now for anticoagulation and can change to Eliquis 5 mg twice daily. Keep potassium greater than 4 magnesium greater than 2.0 at all times. If the patient was DNR/DNI but family did not want the cardioversion and recommended to continue medical treatment for now. There is a high probability of sudden, clinically significant or life threatening deterioration in the patient condition which required the highest level of physician preparedness to intervene urgently. I have personally spent total of 65 minutes of critical care time yesterday, exclusive of time spent on any procedures, in evaluation and management of this critically ill patient. Kit Ho M.D. Interventional Cardiology
[2024-06-03] MEDS: POTASSIUM CHLORIDE 10% 20 MEQ/15 ML UDC GT (11:30)
[2024-06-03] MEDS: VANCOMYCIN/NS 1 GM IVPB 200 ML IV (11:34)
--- NOTE | 2024-06-03 12:41 | EVENTNT_ITS ---
Documentation for date of: 06/03/24 Event Note Event Note: GOC discussion was held this morning with patient's and son, after his blood pressure dropped with MAP <65, requiring the use of IV levophed. Imaging Engineer, hospitalist team, and RN were at bedside. Interpretive services we re utilized. and son were updated with the critical nature of patient's condition, including shock, severe respiratory distress with hypoxia while on 100% FiO2, severe hypokalemia, hypernatremia, atrial fibrillation with rapid ventricular response, organ dysfunction/lactic acidosis (worsening ZACH without urine output, likely secondary to shock) in addition to chronic conditions (h/o CVA leaving patient bedbound and fully dependent, chronic respiratory failure, chronic PEG). Family understood the poor prognosis for the patient, and requested to speak with patient's other children. Later, family made a decision and would like to initiate comfort measures once the youngest son is at bedside, likely early childhood education coordinator on 06/04. Plan is to discontinue all medications and lab draws at this time, other than levophed via peripheral IV, until patient's son arrives on 06/04. Once son arrives, hospitalist team will discontinue levophed and start comfort measures. Family is aware that PIV may fail, and patient may possibly pass overnight. Patient seen and care discussed with my attending Dr. Deras. Yahaira Coombs MD PGY-3
--- NOTE | 2024-06-03 12:42 | PC.SS ---
Update: FLOOR FINISHER HELPER confirmed with resident plan is to transition patient to comfort care tomorrow (1218-24) following the arrival of the patient's son.
--- NOTE | 2024-06-03 13:06 | CHAP ---
09:30 AM Visited by spiritual care volunteer Provided prayer for Patient.
--- NOTE | 2024-06-03 14:58 | PC.SS ---
Rounding Note: Patient remains on pressors. Plan remains for patient to transition to comfort care on 06-04-24.
--- NOTE | 2024-06-03 15:26 | ESCONSULT_ITS ---
<Statement entered by Sai Avila MD - 06/04/24 08:36> TOTAL CC TIME: 60 MIN I saw and evaluated the patient. I reviewed the resident?s note and agree with findings and plan as documented in the resident?s note. Upon my evaluation, this patient had a high probability of imminent or life- threatening deterioration due to severe acute on chronic hypoxic respiratory failure with ARDS and septic shock which required my direct attention, intervention, and personal management. This time is exclusive of time spent on procedures, which are documented separately if performed. Acute hypoxic respiratory failure septic shock likely secondary to massive aspiration due to severe constipation and dilated bowel loops. I met with the family to discuss the patient's intensive care requirements. They are aware the patient has severe acute hypoxic respiratory failure. Imaging was reviewed further benefit. There is very severe bilateral infiltrates identified on chest x-ray that are progressively worsened over the last few days. Mean arterial pressure has been declining despite vasopressor support and IV fluids. The patient is chronically bedbound after a CVA. We discussed additional support including transfer to the intensive care unit, central line placement, and possibly hemodialysis requirements. The family met together and collectively decided it was in the patient's best interest to pursue comfort care starting tomorrow morning when they are son would be present. In the meantime they have elected to not escalate care and CODE STATUS is DNR/DNI. 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 Patient recently came to the ED on 05/24/2024 with similar complaints and received enema following which patient had a bowel movement and transferred back to the facility. Later patient was still found to have constipation for which Dr. Durant was consulted and patient received different bowel regimens and GoLytely with no much effect on constipation. As the patient is having progressive severe abdominal distention with constipation despite bowel regimens and GoLytely he was brought to the hospital today. No history of fever, vomiting. Dr. Durant was consulted and he tried to manually disimpact the stools but unsuccessful. Later Dr Cramer was consulted. ED Course: -Initial vitals were blood pressure 140/84 mmHg, pulse rate 101 bpm, respiratory rate 22/min, SpO2 98% on mechanical ventilator on AC/VC mode. -Labs significant for WBC 9.1, Hb 11.8, platelets 241, sodium 138, potassium 3.3, chloride 90, bicarb 37.1, lactate 1.2, AST 41, ALT 23, procalcitonin 0.07 -CT abdomen/pelvis showed markedly distended large bowel with rectal thickening, massive stool impaction in the rectosigmoid colon and right inguinal hernia with urinary bladder as content -In the ED, patient was given potassium, cefepime. -Patient was admitted for Past medical history: CVA, hypertension, hyperlipidemia, diabetes mellitus, chronic PEG, COPD Past surgical history: PEG tube placement Social history: Unknown Patient developed worsening labs, respiratory distress with hypoxia, fever, and hypotension on the floors prompting rapid response. At bedside patient had MAP 41, with weak and slow peripheral pulse. Patient had clear mottling of feet, knees, hands. Chest x-ray showed worsening infiltrates of both lungs, especially prominent in left lung. Patient upgraded to ICU for worsening acute hypoxic respiratory failure, hypotension with weak peripheral pulses. Patient did not require pressors, received 2 L bolus lactated Ringer's with significant improvement in blood pressure. Peripheral pulse improved as well, heart rate WNL. Patient had multiple bowel movements with stabilizing of respiratory function, downgraded to telemetry. ICU consulted due to afib with RVR, worsening hypotension, requiring pressers to maintain MAP >65, and worsening respiratory distress requiring bagging for 1 hour. GOC discussion was held this morning with patient's and son. Auto Repair Technician, hospitalist team, and RN were at bedside. Interpretive services were utilized. and son were updated with the critical nature of patient's condition, including shock, severe respiratory distress with hypoxia while on 100% FiO2, severe hypokalemia, hypernatremia, atrial fibrillation with rapid ventricular response, organ dysfunction/lactic acidosis (worsening ZACH without urine output, likely secondary to shock) in addition to chronic conditions (h/o CVA leaving patient bedbound and fully dependent, chronic respiratory failure, chronic PEG). Family understood the poor prognosis for the patient, and requested to speak with patient's other children. Later, family made a decision and would like to initiate comfort measures once the youngest son is at bedside, likely web communications specialist on 06/04. Plan is to discontinue all medications and lab draws at this time, other than levophed via peripheral IV, until patient's son arrives on 06/04. Once son arrives, hospitalist team will discontinue levophed and start comfort measures. Family is aware that PIV may fail, and patient may possibly pass overnight. cc:: cc: Ady Martínez MD Review of Systems Review of Systems ROS Unobtainable: unobtainable due to medical condition Exam Vital Signs Temp Pulse Resp BP Pulse Ox O2 Del Method O2 Flow Rate 99.7 F 88 28 H 86/49 L 87 L Mechanical Ventilation 15 06/03/24 08:50 06/03/24 12:02 06/03/24 11:14 06/03/24 10:40 06/03/24 12:02 06/03/24 09:20 06/02/24 17:50 FiO2 100 06/03/24 12:02 Narrative Exam PE: Gen: Alert, poorly responsive. Tracheostomy. HEENT: NCAT, PERRLA, EOMI, anicteric conjunctivae. Dry mucous membranes. CVS: normal S1 and S2. Regular rhythm. No M/R/G. Resp: Coarse lung sounds. Rhonchi and wheezing all lung ansari. Abd: Abdomen distended, soft. PEG tube. MSK: Good ROM in BUE & BLE. Bilateral lower and upper extremity edema. Edematous scrotum. Mottling of lower extremities, worse on RLE. Neuro: CN II-XII grossly intact. Baseline nonverbal. Sometimes tracks sounds. Results Labs 06/03/24 05:46 06/03/24 05:46 Labs: Short CBC 06/02/24 06/03/24 Range/Units 18:59 05:46 WBC 7.0 D 8.3 (3.8-10.6) Thou/mm3 Hgb 11.7 L D 9.4 L D (13.5-16.0) g/dL Hct 36.3 L 29.1 L (41.0-53.0) % Plt Count 160 125 L D (140-440) Thou/mm3 BMP 06/02/24 06/02/24 06/03/24 15:30 20:37 02:09 Sodium 154 H 154 H 156 H Potassium 2.9 L D 1.7 L* D 1.9 L* Chloride 113 H 113 H 115 H Carbon Dioxide 25.9 28.9 26.4 BUN 16 22 23 Creatinine 0.9 1.0 1.4 H Glucose 118 H D 76 106 Calcium 8.5 7.3 L 7.9 L 06/03/24 05:46 Sodium 154 H Potassium 2.0 L* Chloride 114 H Carbon Dioxide 26.1 BUN 27 H Creatinine 1.7 H Glucose 113 H Calcium 7.5 L Liver Function 06/02/24 06/02/24 06/03/24 Range/Units 15:30 20:37 02:09 Total Bilirubin 0.2 L 0.2 L (0.3-1.2) mg/dL AST 101 H 112 H (0-34) U/L ALT 43 42 (10-49) U/L Alkaline Phosphatase 67 59 (46-116) U/L Albumin 3.0 L 2.5 L D 2.4 L (3.4-4.8) gm/dL 06/03/24 Range/Units 05:46 Total Bilirubin (0.3-1.2) mg/dL AST (0-34) U/L ALT (10-49) U/L Alkaline Phosphatase (46-116) U/L Albumin 2.7 L (3.4-4.8) gm/dL ABG Interpretation ABG results: 05/31/24 05/31/24 05/31/24 09:33 14:33 16:21 ABG pH 7.25 L 7.18 L* 7.30 L D ABG pCO2 68 H 78 H* D 57 H D ABG pO2 88 124 H D 69 L D ABG HCO3 30 H 29 H 28 H ABG O2 Saturation 96 99 H 94 ABG Base Excess 2 -1 1 06/01/24 06/02/24 07:51 18:15 ABG pH 7.49 H D 7.47 H ABG pCO2 37 D 44 ABG pO2 49 L* D 48 L* ABG HCO3 28 H 32 H ABG O2 Saturation 89 L 86 L ABG Base Excess 5 H 7 H Quality Measures Quality Measures VTE prophylaxis Advance care planning discussed with:: spouse and child Medications Home Medications and Allergies Home Medications ?Medication ?Instructions ?Recorded ?Confirmed ?Type acetaminophen 325 mg/10.15 mL oral 650 mg feeding tube Q6HR PRN Fever 05/30/24 05/30/24 History solution >101 amoxicillin 400 mg-potassium 5 ml feeding tube BID 05/30/24 05/30/24 History clavulanate 57 mg/5 mL oral suspension aspirin 81 mg tablet,delayed 81 mg feeding tube QDAY 05/30/24 05/30/24 History release calcium 500 mg (as 1 tab feeding tube QDAY 05/30/24 05/30/24 History carbonate)-vitamin D3 5 mcg (200 unit) tablet ipratropium 0.5 mg-albuterol 3 mg 3 ml inhalation Q6H PRN Shortness 05/30/24 05/30/24 History (2.5 mg base)/3 mL nebulization Of Breath Or Wheezing soln magnesium hydroxide 400 mg/5 mL 30 ml feeding tube Q72H PRN 05/30/24 05/30/24 History oral suspension (Milk of Magnesia) Constipation polyethylene glycol 3350 17 gram 17 g feeding tube QDAY PRN 05/30/24 05/30/24 History oral powder packet (Miralax) Constipation quetiapine 25 mg tablet 100 mg feeding tube BID 05/30/24 05/30/24 History sennosides 8.6 mg tablet (senna) 8.6 mg feeding tube BID 05/30/24 05/30/24 History Allergies Allergy/AdvReac Type Severity Reaction Status Date / Time No Known Allergies Allergy Verified 02/05/20 14:36 Visit Medications Amiodarone HCl (Amiodarone Hcl 200 Mg Tablet) 200 mg PO BID [facility] Stop: 07/03/24 14:59 Norepinephrine/Dextrose (Levophed In D5w 8mg/250ml) 8 mg in 250 mls @ 6.572 mls/hr IV .Q24H PRN; Protocol PRN Reason: PER PROTOCOL Stop: 07/03/24 11:36 Last Titration: 06/03/24 14:00 Dose: 0.29 mcg/kg/min, 38.117 mls/hr Discontinued Medications Acetaminophen (Acetaminophen 120 Mg Supp) 120 mg OH Q6HR PRN; Protocol PRN Reason: PAIN OR FEVER > 101 Stop: 06/30/24 10:18 Last Admin: 05/31/24 10:49 Dose: 120 mg Acetaminophen (Acetaminophen 325 Mg Tablet) 650 mg PO Q6HR PRN PRN Reason: FEVER >101 Stop: 07/01/24 10:02 Acetaminophen (Acetaminophen [place] 325 Mg/10 Ml Udc) 650 mg GT Q6HR PRN PRN Reason: FEVER >101 Stop: 07/01/24 10:02 Last Admin: 06/01/24 10:46 Dose: 650 mg Acetylcysteine (Acetylcysteine Rt [place] 10% 4 Ml Nebu) 3 ml INH Q4HRRT [facility] Stop: 07/02/24 10:59 Last Admin: 06/03/24 14:23 Dose: Not Given Bisacodyl (Bisacodyl 10 Mg Supp) 10 mg OH Q8H XOCHITL; Protocol Stop: 06/30/24 16:29 Last Admin: 06/02/24 07:56 Dose: Not Given Bisacodyl (Bisacodyl 10 Mg Supp) 10 mg OH QDAY XOCHITL; Protocol Stop: 07/02/24 08:59 Last Admin: 06/02/24 08:16 Dose: Not Given Dextrose (Dextrose 50%-Water Inj 50 Ml Syringe) 25 ml IV Q15MIN PRN PRN Reason: BG 50-70 responsive npo pt Stop: 07/02/24 12:14 Last Admin: 06/02/24 23:41 Dose: 25 ml Dextrose (Dextrose 50%-Water Inj 50 Ml Syringe) 50 ml IV Q15MIN PRN PRN Reason: BG <50 OR BG <70 & pt unresponsive Stop: 07/02/24 12:14 Enoxaparin Sodium (Enoxaparin Sod Inj 40 Mg/0.4 Ml Syringe) 40 mg SC QDAY [facility]L Stop: 06/15/24 08:59 Last Admin: 06/03/24 08:46 Dose: 40 mg Glycerin (Glycerin, Adult 1 Ea Supp) 1 each OH X1 ONE Stop: 05/29/24 15:30 Last Admin: 05/29/24 23:24 Dose: 1 each Potassium Chloride (Kcl Ivpb) 10 meq in 100 mls @ 100 mls/hr IV X1 ONE Stop: 05/29/24 07:18 Last Infusion: 05/29/24 07:23 Dose: Infused Sodium Chloride (Ns) 1,000 mls @ 999 mls/hr IV .Q1H1M ONE Stop: 05/29/24 07:56 Last Infusion: 05/29/24 08:30 Dose: Infused Cefepime HCl 2 gm/ Sodium (Chloride) 50 mls @ 100 mls/hr IV X1 ONE Stop: 05/29/24 07:25 Last Infusion: 05/29/24 07:46 Dose: Infused Acetaminophen (Ofirmev Inj) 1,000 mg in 100 mls @ 250 mls/hr IV NOW ONE Stop: 05/29/24 07:19 Last Infusion: 05/29/24 07:51 Dose: Infused Vancomycin HCl 2,000 mg/ (Sodium Chloride) 500 mls @ 150 mls/hr IV X1 ONE Stop: 05/29/24 10:16 Last Infusion: 05/29/24 13:15 Dose: Infused Sodium Chloride (Ns) 1,000 mls @ 75 mls/hr IV .[id number] [facility] Stop: 05/29/24 21:55 Last Admin: 05/29/24 09:24 Dose: 75 mls/hr Piperacillin/Tazobactam/Dextrose (Zosyn) 50 mls @ 12.5 mls/hr IV Q8HR XOCHITL; Protocol Stop: 06/05/24 13:59 Last Infusion: 06/03/24 08:30 Dose: Infused Piperacillin/Tazobactam/Dextrose (Zosyn) 50 mls @ 100 mls/hr IV X1 ONE Stop: 05/29/24 09:14 Last Infusion: 05/29/24 09:52 Dose: Infused Potassium Chloride (Kcl Ivpb) 10 meq in 100 mls @ 100 mls/hr IV Q1H [facility] Stop: 05/29/24 10:37 Last Infusion: 05/29/24 11:38 Dose: Infused Sodium Chloride (Ns) 1,000 mls @ 75 mls/hr IV .[id number] ONE Stop: 05/30/24 06:08 Last Infusion: 05/30/24 19:25 Dose: Infused Potassium Chloride (Kcl Ivpb) 10 meq in 100 mls @ 100 mls/hr IV Q1H [facility] Stop: 05/30/24 12:15 Last Admin: 05/30/24 18:17 Dose: Not Given Potassium Chloride 30 meq/ (Sodium Chloride) 1,015 mls @ 75 mls/hr IV .[id number] XOCHITL; Protocol Stop: 06/04/24 09:59 Last Admin: 05/31/24 19:46 Dose: Not Given Potassium Chloride (Kcl Ivpb) 10 meq in 100 mls @ 100 mls/hr IV Q1H [facility] Stop: 05/31/24 12:13 Last Admin: 05/31/24 11:39 Dose: 100 mls/hr Vancomycin/Sodium Chloride (Vancomycin/Ns 750 Mg Ivpb) 750 mg in 150 mls @ 120 mls/hr IV BID@1000,2200 XOCHITL; Protocol Stop: 06/07/24 12:14 Last Infusion: 06/02/24 09:30 Dose: Infused Sodium Chloride (Ns) 1,000 mls @ 999 mls/hr IV .Q1H1M ONE Stop: 05/31/24 13:08 Last Admin: 05/31/24 19:46 Dose: Not Given Sodium Chloride (Ns) 1,000 mls @ 999 mls/hr IV .Q1H1M ONE Stop: 05/31/24 13:08 Last Admin: 05/31/24 19:46 Dose: Not Given Lactated Ringer's (Lactated Ringers) 2,000 mls @ 999 mls/hr IV .Q2H1M ONE Stop: 05/31/24 14:56 Last Admin: 05/31/24 13:23 Dose: 999 mls/hr Acetaminophen (Ofirmev Inj) 1,000 mg in 100 mls @ 250 mls/hr IV Q6HR [facility] Stop: 06/01/24 06:23 Acetaminophen (Ofirmev Inj) 1,000 mg in 100 mls @ 250 mls/hr IV X1 ONE Stop: 05/31/24 17:08 Last Admin: 05/31/24 16:53 Dose: 250 mls/hr Potassium Phosphate (Pot Phos 15 Mmol In Ns 250 Ml) 15 mmol in 250 mls @ 62.5 mls/hr IV Q4H [facility] Stop: 06/01/24 15:09 Last Infusion: 06/02/24 07:56 Dose: Infused Potassium Chloride (Kcl Ivpb) 10 meq in 100 mls @ 100 mls/hr IV Q1H [facility] Stop: 06/01/24 12:53 Last Infusion: 06/02/24 07:56 Dose: Infused Magnesium Sulfate (Magnesium Sulfate Ivpb) 4 gm in 50 mls @ 12.5 mls/hr IV X1 ONE Stop: 06/02/24 06:20 Last Infusion: 06/02/24 07:55 Dose: Infused Potassium Chloride (Kcl Ivpb) 10 meq in 100 mls @ 100 mls/hr IV Q1H [facility] Stop: 06/02/24 07:56 Last Infusion: 06/03/24 08:29 Dose: Infused Potassium Phosphate (Pot Phos 15 Mmol In Ns 250 Ml) 15 mmol in 250 mls @ 62.5 mls/hr IV X1 ONE Stop: 06/02/24 08:14 Last Admin: 06/02/24 04:16 Dose: 62.5 mls/hr Ampicillin Sodium/Sulbactam (Sodium 3 gm/ Sodium Chloride) 100 mls @ 200 mls/hr IV Q6HR [facility] Stop: 06/09/24 11:59 Last Admin: 06/03/24 05:18 Dose: 200 mls/hr Potassium Phosphate (Pot Phos 15 Mmol In Ns 250 Ml) 15 mmol in 250 mls @ 62.5 mls/hr IV Q4H [facility] Stop: 06/02/24 17:48 Last Infusion: 06/03/24 08:30 Dose: Infused Amiodarone HCl/Dextrose (Nexterone Ivpb) 150 mg in 100 mls @ 600 mls/hr IV .Q10M ONE Stop: 06/02/24 12:24 Last Infusion: 06/03/24 08:30 Dose: Infused Amiodarone HCl/Dextrose (Nexterone Ivpb) 360 mg in 200 mls @ 33.333 mls/hr IV .Q6H ONE Stop: 06/02/24 18:24 Last Infusion: 06/03/24 08:30 Dose: Infused Amiodarone HCl/Dextrose (Nexterone Ivpb) 360 mg in 200 mls @ 16.667 mls/hr IV .Q12H [facility] Stop: 06/03/24 18:24 Last Admin: 06/02/24 19:48 Dose: Not Given Potassium Acetate 40 meq/ (Dextrose) 520 mls @ 130 mls/hr IV X1 ONE Stop: 06/02/24 18:44 Last Infusion: 06/03/24 08:29 Dose: Infused Sodium Chloride (Ns) 1,000 mls @ 999 mls/hr IV .Q1H1M ONE Stop: 06/02/24 18:58 Last Infusion: 06/03/24 09:17 Dose: Infused Amiodarone HCl 200 mg/ (Dextrose) 104 mls @ 600 mls/hr IV X1 ONE Stop: 06/02/24 18:34 Last Admin: 06/02/24 19:47 Dose: Not Given Amiodarone HCl/Dextrose (Nexterone Ivpb) 360 mg in 200 mls @ 33.333 mls/hr IV .Q6H [facility] Stop: 06/03/24 07:32 Last Infusion: 06/03/24 08:30 Dose: Infused Potassium Chloride (Kcl Ivpb) 10 meq in 100 mls @ 100 mls/hr IV Q1H [facility] Stop: 06/03/24 01:28 Last Infusion: 06/03/24 08:29 Dose: Infused Potassium Phosphate (Pot Phos 15 Mmol In Ns 250 Ml) 15 mmol in 250 mls @ 62.5 mls/hr IV X1 ONE Stop: 06/03/24 03:39 Last Infusion: 06/03/24 08:30 Dose: Infused Potassium Phosphate (Pot Phos 15 Mmol In Ns 250 Ml) 15 mmol in 250 mls @ 62.5 mls/hr IV Q4H [facility] Stop: 06/03/24 11:01 Last Admin: 06/03/24 08:43 Dose: 62.5 mls/hr Piperacillin/Tazobactam/Dextrose (Zosyn) 50 mls @ 100 mls/hr IV Q8HR [facility] Stop: 06/10/24 10:29 Last Admin: 06/03/24 11:41 Dose: Not Given Vancomycin/Sodium Chloride (Vancomycin/Ns 1 Gm Ivpb) 200 mls @ 120 mls/hr IV QDAY@1000 [facility] Stop: 06/10/24 10:44 Last Admin: 06/03/24 11:34 Dose: 120 mls/hr Piperacillin/Tazobactam/Dextrose (Zosyn) 50 mls @ 12.5 mls/hr IV Q8HR [facility] Stop: 06/10/24 10:29 Norepinephrine Bitartrate (Levophed In Ns 16mg/250ml) 16 mg in 250 mls @ 3.286 mls/hr IV .Q24H PRN; Protocol PRN Reason: PER protocol Stop: 07/03/24 11:12 Vasopressin/Sodium Chloride (Vasostrict/Ns Ivpb) 20 unit in 100 mls @ 9 mls/hr IV .Q11H7M PRN; Protocol PRN Reason: PER PROTOCOL Stop: 07/03/24 13:54 Insulin Human Lispro (Insulin Lispro (Admelog) 1 Unit/0.01 Ml Unit) 4 unit SC X1 ONE Stop: 05/31/24 18:06 Last Admin: 05/31/24 19:45 Dose: Not Given Ipratropium [place] (Ipratropium Rt 0.5 Mg/ 2.5 Ml Nebu) 0.5 mg INH X1 ONE Stop: 05/31/24 12:46 Last Admin: 05/31/24 13:58 Dose: 0.5 mg Lactulose (Lactulose Syrup 20 Gm/30 Ml Udc) 30 gm PO X1 ONE; Protocol Stop: 05/29/24 11:54 Last Admin: 05/29/24 13:47 Dose: Not Given Lactulose (Lactulose Syrup 20 Gm/30 Ml Udc) 30 gm GT X1 ONE; Protocol Stop: 05/29/24 11:54 Last Admin: 05/29/24 13:18 Dose: 30 gm Lactulose (Lactulose Syrup 20 Gm/30 Ml Udc) 20 gm GT BID XO[facility]L; Protocol Stop: 06/30/24 08:59 Last Admin: 06/03/24 08:46 Dose: Not Given Levalbuterol HCl (Levalbuterol Rt 0.63 Mg/3 Ml Nebu) 0.63 mg INH Q4HRRT [facility] Stop: 06/28/24 10:59 Last Admin: 06/03/24 11:14 Dose: 0.63 mg Metoclopramide HCl (Metoclopramide Inj 5 Mg/Ml Vial 2 Ml) 10 mg IVP Q6HR [facility]; Protocol Stop: 06/28/24 14:59 Last Admin: 06/02/24 12:16 Dose: 10 mg Midazolam HCl (Midazolam Inj 1 Mg/Ml Vial 2 Ml) 2 mg IV X1 ONE Stop: 06/02/24 19:02 Last Admin: 06/02/24 19:48 Dose: Not Given Morphine Sulfate (Morphine Sulf Inj 10 Mg/Ml Vial) 2 mg IVP X1 ONE Stop: 06/02/24 18:50 Last Admin: 06/02/24 19:00 Dose: 2 mg Ondansetron HCl (Ondansetron Inj 2 Mg/Ml Inj 2 Ml) 4 mg IV Q6H PRN; Protocol PRN Reason: NAUSEA OR VOMITING Stop: 06/28/24 08:21 Ondansetron HCl (Ondansetron Inj 2 Mg/Ml Inj 2 Ml) 4 mg IV Q6HR PRN; Protocol PRN Reason: NAUSEA OR VOMITING Stop: 07/02/24 13:28 Pantoprazole Sodium (Pantoprazole Inj 40 Mg Vial) 40 mg IVP QDAY [facility] Stop: 06/28/24 08:59 Last Admin: 06/03/24 08:46 Dose: 40 mg Pharmacy Consult (Vancomycin Pharmacy To Dose 1 Each Each) 1 each IV QDAY PRN PRN Reason: PROTOCOL Stop: 06/30/24 11:59 Pharmacy Consult (Vancomycin Pharmacy To Dose 1 Each Each) 1 each IV QDAY PRN PRN Reason: RX Stop: 07/03/24 10:29 Polyethylene Glycol/Electrolytes ([place]/Nahco3/Ed/Peg (Golytely) 4,000 Ml Btl) 4,000 ml GT X1 ONE Stop: 06/01/24 15:36 Last Admin: 06/01/24 15:46 Dose: 4,000 ml Potassium Chloride (Potassium Chloride 10% 20 Meq/15 Ml Udc) 40 meq GT X1 ONE Stop: 05/31/24 08:16 Last Admin: 05/31/24 08:31 Dose: 40 meq Potassium Chloride (Potassium Chloride 10% 20 Meq/15 Ml Udc) 40 meq GT X1 ONE Stop: 06/01/24 10:55 Last Admin: 06/01/24 13:43 Dose: 40 meq Potassium Chloride (Potassium Chloride 10% 20 Meq/15 Ml Udc) 20 meq GT X1 ONE Stop: 06/01/24 14:01 Last Admin: 06/01/24 17:02 Dose: 20 meq Potassium Chloride (Potassium Chloride 10% 20 Meq/15 Ml Udc) 40 meq GT X1 ONE Stop: 06/02/24 21:28 Last Admin: 06/02/24 21:56 Dose: 40 meq Potassium Chloride (Potassium Chloride 10% 20 Meq/15 Ml Udc) 60 meq GT X1 ONE Stop: 06/03/24 02:54 Last Admin: 06/03/24 03:50 Dose: 60 meq Potassium Chloride (Potassium Chloride 10% 20 Meq/15 Ml Udc) 40 meq GT X1 ONE Stop: 06/03/24 07:43 Last Admin: 06/03/24 08:46 Dose: 40 meq Potassium Chloride (Potassium Chloride 10% 20 Meq/15 Ml Udc) 20 meq GT X1 ONE Stop: 06/03/24 10:01 Last Admin: 06/03/24 11:30 Dose: 20 meq Sodium Chloride (Sodium Chloride Rt 10% 15 Ml Nebu) 5 ml INH X1 ONE Stop: 05/31/24 12:50 Last Admin: 05/31/24 16:50 Dose: Not Given Assessment & Plan Plan 73-year-old male with past medical history of CVA [nonverbal at baseline], chronic peg tube, chronic tracheostomy, hyperlipidemia, diabetes mellitus, recurrent UTIs with resistant organisms, depression, anxiety, history of upper extremity bilateral DVT was brought who was transfer from telemetry floors to ICU due to A-fib with RVR and hypoxia. Neuro: #Acute encephalopathy #CVA with residual deficits Metabolic encephalopathy due to severe constipation, hypoxia, metabolic disturbances. Patient is nonverbal at baseline, per family at bedside he is normally somewhat interactive. Currently patient is responsive only to pain, does not open eyes or track sounds. Patient's family has decided not to pursue further treatment at this time. In accordance with patient's values and wishes, patient will be mde comfort care. -Hold labs and meds, except levophed pending final family member's arrival Cardio: #New onset of A-fib In the setting of acute on chronic hypoxic respiratory failure Patient is found to have tachycardia with heart rate around 150s on 06/02/2024 EKG ordered this morning showed atrial fibrillation with rapid ventricular rate, [id number] score is 3 Cardiology was consulted who recommended to start amiodarone drip ?Hold meds and labs #Shock DDx: Cardiogenic vs. hypovolemic Patient developed worsening hypotension, requiring pressor support. Patient started on levophed to maintain MAP >65. Patient has had multiple watery bowel movements following resolution of fecal impaction. Patient also developed new onset afib with RVR, for which cardiology was consulted. Patient's family does not want further treatment, only wants to maintain BP until patient's son arrives tomorrow. Otherwise patient is comfort care. -Levophed, titrate as needed -Will d/c tomorrow once family is in attendance Pulm: #Acute on chronic hypoxic respiratory failure #ARDS #Severe bilateral pneumonia Patient developed worsening hypoxia despite increasing FiO2 on the floors, SpO2 was in the low 70s ,RT start to back the patient with the sats went up to 80% Chest x-ray shows significant worsening bilateral pneumonia -Hold lab draws and further treatment GI: #Large bowel obstruction improving DDx: [place] versus fecal impaction with stercoral colitis Patient is having constipation for almost 10 days from now Patient had a bowel movement on 05/25/2024 following enema Gastroenterology was following the patient and tried edema, GoLytely but patient still did not have any bowel movement since 5 days before the day of admission -Hold further treatment Renal: #Hypokalemia ?Hold lab draws Endo: Stable Heme: #Leukocytosis Likely due to infection and reactive to severe abdominal distention. -Hold lab draws #Normocytic anemia Patient has chronic normocytic anemia, slightly worse than normal currently. -Hold lab draws ID: #Bacterial pneumonia Patient has severe bilateral pneumonia, worsened by abdominal distention compressing lungs -Hold meds and lab draws Skin/MSK: #Muscle atrophy Secondary to CVA with residual deficit Diet: N.p.o. DVT ppx: None GI ppx: None [place]: Yes IV lines: Peripheral IV Code status: DNR-Comfort Care Patient discussed with my attending Dr Avila. Jayjay Malagon MD PGY-1 Attending Provider Attestation/Addendum I discussed with and supervised the resident physician who took care of this patient. I agree with the assessment and plan as above. This is a 73-year-old male patient with history of CVA, bedbound, on MV trach FiO2 100%. Patient has a PEG tube. He is on Jevity. The patient had a rapid response secondary to A-fib with RVR currently on amiodarone drip. He is receiving phosphorus replacement IV.
[2024-06-03] MEDS: AMIODARONE HCL 200 MG TABLET PO ×2 (16:36→21:53)
--- NOTE | 2024-06-03 18:37 | ESPR_ITS ---
Documentation for date of: 06/03/24 Subjective Subjective Interval history: Patient had a rapid response yesterday around 6 PM in view of low oxygen saturations and low blood pressure. After doing bag and mask ventilation, giving 500 mL of NS bolus, 200 Mg of amiodarone bolus for atrial fibrillation with rapid ventricular rate, vitals are stabilized with blood pressure of 100-110/60-70 mmHg. Overnight, patient was started on vasopressors. Patient is awake, not responding to commands, tachypneic and gross mottling noted on the lower extremities. Continued to be on Levophed to maintain blood pressures. Goals of care discussion done with the family on the presence of a survey questionnaire designer, Dr. Avila, primary team. After extensive discussion family opted for comfort care from tomorrow as they are waiting for son of the patient. For now, we will continue vasopressors and will stop rest of the medications. The family denied central line placement. Exam Vital Signs Temp Pulse Resp BP Pulse Ox O2 Del Method O2 Flow Rate 99.1 F 117 H 30 H 94/55 L 100 Mechanical Ventilation 15 06/03/24 16:24 06/03/24 18:31 06/03/24 18:31 06/03/24 18:31 06/03/24 18:31 06/03/24 18:31 06/02/24 17:50 FiO2 100 06/03/24 18:31 Narrative Exam General: Awake. Not responding to commands HEENT: Normocephalic, atraumatic, mucous membranes dry. Heart: Irregular rate and rhythm. Lungs: Decreased breath sounds noted bilaterally. Abdomen: Soft, nondistended, tender to touch, positive bowel sounds. ?No guarding or rebound tenderness. Neurologic: Decreased movements noted on left side in view of his previous history of CVA. Extremities: Bilateral pitting 3+ pedal edema extending up to the thighs and severe mottling is noted on bilateral extremities. Skin: No rash . Multiple ecchymotic patches are noted secondary to IV catheterizations Objective Labs 06/03/24 05:46 06/03/24 05:46 Labs: Laboratory Results - last 24 hr 06/02/24 06/02/24 06/02/24 18:59 20:37 23:06 WBC 7.0 D RBC 4.03 L Hgb 11.7 L D Hct 36.3 L MCV 90 MCH 29.0 MCHC 32.2 RDW Std Deviation 55.5 H Plt Count 160 Neut % (Auto) 92 H Lymph % (Auto) 5 L Morgan % (Auto) 3 Eos % (Auto) 0 Baso % (Auto) 0 Neut # (Auto) 6.4 Lymph # (Auto) 0.4 L Morgan # (Auto) 0.2 Eos # (Auto) 0.0 Baso # (Auto) 0.0 Immature Gran # (Auto) 0.03 H Absolute Nucleated RBC 0.02 H Immature Gran % 0 Nucleated RBC % 0 Sodium 154 H Potassium 1.7 L* D Chloride 113 H Carbon Dioxide 28.9 Anion Gap 12 BUN 22 Creatinine 1.0 Estim Creat Clear Calc 55.1 L eGFR > 60 BUN/Creatinine Ratio 22 H Glucose 76 Calculated Osmolality 307 H Lactic Acid 3.9 H 3.8 H Calcium 7.3 L Corrected Calcium 8.5 Phosphorus 1.3 L Magnesium 2.1 Total Bilirubin 0.2 L AST 101 H ALT 43 Alkaline Phosphatase 67 Total Protein 4.6 L Albumin 2.5 L D Globulin 2.1 L Albumin/Globulin Ratio 1.2 06/03/24 06/03/24 02:09 05:46 WBC 8.3 RBC 3.26 L Hgb 9.4 L D Hct 29.1 L MCV 89 MCH 28.8 MCHC 32.3 RDW Std Deviation 54.4 H Plt Count 125 L D Neut % (Auto) 88 H Lymph % (Auto) 6 L Morgan % (Auto) 5 Eos % (Auto) 0 Baso % (Auto) 1 Neut # (Auto) 7.2 Lymph # (Auto) 0.5 L Morgan # (Auto) 0.4 Eos # (Auto) 0.0 Baso # (Auto) 0.0 Immature Gran # (Auto) 0.05 H Absolute Nucleated RBC 0.02 H Immature Gran % 1 H Nucleated RBC % 0 Sodium 156 H 154 H Potassium 1.9 L* 2.0 L* Chloride 115 H 114 H Carbon Dioxide 26.4 26.1 Anion Gap 15 14 BUN 23 27 H Creatinine 1.4 H 1.7 H Estim Creat Clear Calc 39.3 L 32.4 L eGFR 53 L 42 L BUN/Creatinine Ratio 16 16 Glucose 106 113 H Calculated Osmolality 312 H 311 H Lactic Acid Calcium 7.9 L 7.5 L Corrected Calcium 9.2 8.5 Phosphorus 0.9 L* 1.6 L Magnesium 2.2 Total Bilirubin 0.2 L AST 112 H ALT 42 Alkaline Phosphatase 59 Total Protein 4.5 L Albumin 2.4 L 2.7 L Globulin 2.1 L Albumin/Globulin Ratio 1.1 L ABG Interpretation ABG results: 05/31/24 05/31/24 05/31/24 09:33 14:33 16:21 ABG pH 7.25 L 7.18 L* 7.30 L D ABG pCO2 68 H 78 H* D 57 H D ABG pO2 88 124 H D 69 L D ABG HCO3 30 H 29 H 28 H ABG O2 Saturation 96 99 H 94 ABG Base Excess 2 -1 1 06/01/24 06/02/24 07:51 18:15 ABG pH 7.49 H D 7.47 H ABG pCO2 37 D 44 ABG pO2 49 L* D 48 L* ABG HCO3 28 H 32 H ABG O2 Saturation 89 L 86 L ABG Base Excess 5 H 7 H Quality Measures Quality Measures VTE prophylaxis Advance care planning discussed with:: spouse and child Assessment & Plan Assessment Current Active Medications: Generic Name Dose Route Start Last Admin Trade Name Freq PRN Reason Stop Dose Admin Amiodarone HCl 200 mg 06/03/24 15:00 06/03/24 16:36 Amiodarone Hcl 200 Mg Tablet PO 07/03/24 14:59 200 mg BID XOCHITL Administration Norepinephrine/Dextrose 8 mg in 250 mls @ 6.572 mls/hr 06/03/24 11:37 06/03/24 18:00 Levophed In D5w 8mg/250ml IV 07/03/24 11:36 Infused .Q24H PRN Titration PER PROTOCOL Protocol 0.05 MCG/KG/MIN Plan A 73-year-old male with past medical history of CVA [nonverbal at baseline], chronic peg tube, chronic tracheostomy, hyperlipidemia, diabetes mellitus, recurrent UTIs with resistant organisms, depression, anxiety, history of upper extremity bilateral DVT was brought to the hospital from subacute facility with the complaints of constipation and abdominal distention since 5 days and diagnosed to have large bowel obstruction and ARDS 06/03/2024: After having extensive discussion with the family, all the medications are discontinued except Levophed and amiodarone as patient's family does not want central line but wants to keep him on blood pressure support medication till tomorrow until the patient's son reaches the hospital and once he comes to the hospital, planning to change patient's current DNR status to comfort care. Will continue mechanical ventilation for now. Patient's family are aware of patient passing overnight and answered other questions appropriately to the patient's family. Once patient's son arrives, planning to discontinue Levophed and amiodarone, will start comfort care and will start patient on morphine and Ativan. # Acute on chronic hypoxic respiratory failure, s/p tracheostomy # Acute respiratory distress syndrome # Bilateral pneumonia # Hypernatremia #Hyperchloremia # Hypokalemia # New onset atrial fibrillation with rapid ventricular rate # Large bowel obstruction, resolving # Likely due to fecal impaction # S/p PEG tube # Right inguinal hernia, urine bladder as content # History of CVA with residual deficit # History of hyperlipidemia # History of diabetes mellitus # Anemia Hospital Maintenance: Dispo: Telemetry DVT ppx: SCD GI ppx: none Diet: npo IV lines: Peripheral Code status: DNR Patient plan of care was discussed with the attending physician, Dr. Deras and senior resident Dr. Corin Shaikh, PGY1 Attending Provider Attestation/Addendum I reviewed labs, imaging, EKG, home medications and prior available records. Face to face evaluation was performed by me. I have personally examined the patient and discussed assessment and plan with the IM team. I reviewed the resident note and agree with the plan with exceptions as below. New onset A-fib with RVR Shock Aspiration pneumonia ARDS Hypokalemia Hypernatremia ZACH Thrombocytopenia Large bowel obstruction Severe constipation Chronic hypoxic respiratory failure History of CVA S/p tracheostomy and PEG tube placement Goals of care discussion/counseling New complication of A-fib with RVR. Started amiodarone drip. Patient is upgraded again to the ICU for acute hypotension. He is on vasopressors. He is ICU level of care. He is on mechanical ventilation. Aspiration precautions IV Zosyn Aggressive repletion of potassium, monitor potassium level Started water flushes for the hypernatremia, monitor sodium level Status post 2 manual disimpaction's. Had several bowel movements after Goals of care were discussed with the patient's family at the bedside and over the phone. See event note. Patient will be transitioned to comfort care starting from tomorrow to allow family members to be at the bedside. Will continue the vasopressors for 06/03.
[2024-06-03] MEDS: Norepinephrine/D5W 8mg/250ml 8 MG/250 ML BAG 38.117 MG IV (23:51)
[2024-06-04] VITALS (97 sets, daily range): BP systolic 75–132; BP diastolic 47–79; PULSE 101–169; RESP 8–42; TEMP 37.1–38.7; O2SAT 78–100
--- NOTE | 2024-06-04 10:01 | PD.IMPROG ---
Documentation for date of: 06/04/24 Subjective Subjective Interval history: Patient seen and examined at the bedside. Patient is on mechanical ventilation at the present point of time. Family again changed his status to limited code and wanted to Patient continues to be in atrial fibrillation with RVR and patient is still on amiodarone drip. Recommend to continue amiodarone drip at 1 mg/min as detailed yesterday. Recommend to also start oral amiodarone 400 mg twice daily for loading amiodarone completely Can give additional digoxin if needed for rate control when patient potassium and kidney function are stable. Cannot start beta-valarie or diltiazem as the patient is hypotensive and is requiring pressors. Family to meet again to discuss the goals of care and regarding the further plan of treatment. Continue heparin drip for anticoagulation and can change to Eliquis 5 mg twice daily if no further procedures planned. Keep potassium greater than 4 in addition greater than 2.0 at all times. Exam Vital Signs Temp Pulse Resp BP Pulse Ox O2 Del Method O2 Flow Rate 99.6 F 111 H 28 H 110/59 L 99 Mechanical Ventilation 15 06/04/24 08:00 06/04/24 09:34 06/04/24 09:34 06/04/24 09:34 06/04/24 09:34 06/04/24 09:34 06/02/24 17:50 FiO2 30 06/04/24 09:34 Narrative Exam General: Nonverbal and unresponsive. Eyes: Pupils were difficult to assess due to cataracts Ears: No visible ear discharge Nose: No visible nasal discharge. Mouth/Throat: Dry mucous membranes, no redness, no lesions. Neck: Neck supple, no cervical lymphadenopathy. Lungs: Bronchial breath sounds bilateral Cardio: Normal S1/S2, irregular rhythm, no murmurs, no JVD Abdomen: Soft no palpable masses, peristalsis present, no guarding or rebound, PEG tube in place, 2 small 1 to 2 cm dry near the umbilicus wounds Extremities: Symmetrical, no significant deformities, 2+ peripheral edema and 1+ bilateral upper extremity swelling peripheral pulses presents. Skin: No rashes, no lesions, warm to touch. Neuro: Cannot be assessed due to patient's medical condition Psych: Flat affect Objective Labs 06/05/24 05:07 06/05/24 05:07 ABG Interpretation ABG results: 05/31/24 05/31/2405/31/24 09:33 14:33 16:21 ABG pH 7.25 L 7.18 L* 7.30 L D ABG pCO2 68 H 78 H* D 57 H D ABG pO2 88 124 H D 69 L D ABG HCO3 30 H 29 H 28 H ABG O2 Saturation 96 99 H 94 ABG Base Excess 2 -1 1 06/01/24 06/02/24 07:51 18:15 ABG pH 7.49 H D 7.47 H ABG pCO2 37 D 44 ABG pO2 49 L* D 48 L* ABG HCO3 28 H 32 H ABG O2 Saturation 89 L 86 L ABG Base Excess 5 H 7 H Assessment & Plan A&P Narrative 73-year-old male with past medical history of 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 1. A-fib with RVR, new onset 2. Hypokalemia ?Patient developed A-fib with RVR on 06/02/2024 ?Initial EKG showed on admission sinus tachycardia. ?Repeat EKG on 05/31/2024 that showed sinus rhythm ?EKG on 06/02/2024 showed A-fib with RVR and at this time patient's potassium was 2.9. ?Patient is currently DNR/DNI as per family's wishes ? Patient' family did not want any cardioversion at this time. Plan: ?Continue amiodarone drip for now and add amiodarone 200 p.o BID ?Recommend start patient on Eliquis 5 mg twice daily ? Recommend to keep potassium magnesium above 4 and 2 respectively to avoid any further arrhythmias ?Recommend primary care team to have goals of care discussion 06/04/2024 Patient is on mechanical ventilation at the present point of time. Family again changed his status to limited code and wanted to Patient continues to be in atrial fibrillation with RVR and patient is still on amiodarone drip. Recommend to continue amiodarone drip at 1 mg/min as detailed yesterday. Recommend to also start oral amiodarone 400 mg twice daily for loading amiodarone completely Can give additional digoxin if needed for rate control when patient potassium and kidney function are stable. Cannot start beta-valarie or diltiazem as the patient is hypotensive and is requiring pressors. Family to meet again to discuss the goals of care and regarding the further plan of treatment. Continue heparin drip for anticoagulation and can change to Eliquis 5 mg twice daily if no further procedures planned. Keep potassium greater than 4 in addition greater than 2.0 at all times. 3. Acute on chronic hypoxic respiratory failure 4. Bilateral community-acquired pneumonia versus hospital-acquired pneumonia ? Continue management as per primary care team 5. Large bowel obstruction ?Continue management as per primary care team 6. CVA with residual deficits 7. Chronic PEG tube and tracheostomy ?Continue current management per primary care team 8. DM2 ? Continue current management as per primary care team 9. Bilateral upper extremity DVTs ? Continue current management as per primary care team 10. Anxiety 11. Depression ? Continue current management as per primary care team 12. Recurrent UTIs ? Continue current management as per primary care team There is a high probability of sudden, clinically significant or life threatening deterioration in the patient condition which required the highest level of physician preparedness to intervene urgently. I have personally spent total of 65 minutes of critical care time yesterday, exclusive of time spent on any procedures, in evaluation and management of this critically ill patient. Management of rest of the medical conditions as per primary team and other consultants. Thank you for the consult and allowing me to participate in the care of the patient. Cardiology will continue to follow. Kit Ho M.D. Interventional Cardiology Time Spent With Patient Time: Total time spent is greater than 50% in coordination of care (as documented) at patient's floor/unit and/or counseling patient:
--- NOTE | 2024-06-04 10:32 | CHAP ---
Patient could not communicate. I had prayer with him and his family.
[2024-06-04] MEDS: Norepinephrine/D5W 8mg/250ml 8 MG/250 ML BAG 51.261 MG IV (10:43)
--- NOTE | 2024-06-04 11:20 | PC.NURSE ---
patient'shr sustaining on 150 s- dr. aguilera is aware.continue to monitor.
--- NOTE | 2024-06-04 11:52 | PC.SS ---
JUDO INSTRUCTOR attempted phone contact with patient's spouse, Meli Ch Herman ; no response. No option to leave voicemail.
--- NOTE | 2024-06-04 11:54 | ESPR_ITS ---
<Statement entered by Yahaira Coombs MD - 06/04/24 21:54> Patient was seen and examined by me personally. I agree with most of the assessment and plan as discussed with the agronomy internship physician, and my attending, Dr. Deras. On 06/03, GOC was had with family, who opted to transition patient to comfort care. Patient was in septic shock with MAP <65. Plan was for patient to remain on levophed overnight until 06/04 morning while waiting for additional family to arrive at bedside. Once additional members present, family was to alert hospitalist team to intiate comfort measures (see event note from 06/03/2024). On 06/04, a rapid response was called as patient was in AFRVR, likely secondary to increased levophed requirement. Patient was started on amiodarone drip, as comfort measures were not initiated, and family wanted further intervention. Further GOC discussion was had with patient's , son, and daughter. It was explained that patient's condition continued to worsen, as levophed requirement had increased overnight, and there was likely further organ dysfunction, as previously discussed on 06/03. They wished to try selective treatment but keep patient DNR. Treatment including broad spectrum antibiotics was resumed. Case was discussed with ICU team, and patient was upgraded to ICU for central line placement, IV pressors and further management of acute on chronic respiratory failure, septic shock secondary to bilateral pneumonia, and ARDS. Yahaira Coombs MD, PGY-3 Documentation for date of: 06/04/24 Subjective Subjective Interval history: Patient was seen and examined with his by bedside. Due to his baseline medical condition, patient cannot communicate effectively. But patient is awake, without any distress and noticed movements on the right half of his body. Still continuing on Levophed drip at 0.39 mcg/kg/min. On mechanical ventilator, VC/AC mode with FiO2 85%, PEEP 8, tidal volume 450 mL. Heart rate is around 150 and patient is still in A-fib. Patient's condition is explained to the with the help of a operating manager on phone and answered all of her questions to the satisfaction. Patient is only on Levophed drip at this point. Held PEG tube feeds and water flushes. Exam Vital Signs Temp Pulse Resp BP Pulse Ox O2 Del Method O2 Flow Rate 99.6 F 123 H 28 H 112/59 L 98 Mechanical Ventilation 15 06/04/24 08:00 06/04/24 11:30 06/04/24 11:30 06/04/24 11:30 06/04/24 11:30 06/04/24 11:30 06/02/24 17:50 FiO2 30 06/04/24 11:30 Narrative Exam General: Awake.chr trach and chr PEG HEENT: Normocephalic, atraumatic, mucous membranes moist. Heart: Irregular rate and rhythm, no murmurs. Lungs: Bilateral bronchial breath sounds are heard. Abdomen: Soft, nondistended, mild tenderness noted on superficial palpation, positive bowel sounds. ?No guarding or rebound tenderness. PEG tube in situ Neurologic: Decreased movements on left side, awake but not able to follow or respond to commands Extremities: Bilateral lower extremity pedal edema was noted Skin: No rash. ecchymoses noted at the site of IV catheterizations. Objective Labs 06/05/24 05:07 06/05/24 05:07 ABG Interpretation ABG results: 05/31/24 05/31/24 05/31/24 09:33 14:33 16:21 ABG pH 7.25 L 7.18 L* 7.30 L D ABG pCO2 68 H 78 H* D 57 H D ABG pO2 88 124 H D 69 L D ABG HCO3 30 H 29 H 28 H ABG O2 Saturation 96 99 H 94 ABG Base Excess 2 -1 1 06/01/24 06/02/24 07:51 18:15 ABG pH 7.49 H D 7.47 H ABG pCO2 37 D 44 ABG pO2 49 L* D 48 L* ABG HCO3 28 H 32 H ABG O2 Saturation 89 L 86 L ABG Base Excess 5 H 7 H Quality Measures Quality Measures VTE prophylaxis Advance care planning discussed with:: spouse Assessment & Plan Assessment Current Active Medications: Generic Name Dose Route Start Last Admin Trade Name Freq PRN Reason Stop Dose Admin Norepinephrine/Dextrose 8 mg in 250 mls @ 6.572 mls/hr 06/03/24 11:37 06/04/24 11:46 Levophed In D5w 8mg/250ml IV 07/03/24 11:36 0.39 mcg/kg/min .Q24H PRN 51.261 mls/hr PER PROTOCOL Titration Protocol 0.05 MCG/KG/MIN Plan A 73-year-old male with past medical history of CVA [nonverbal at baseline], chronic peg tube, chronic tracheostomy, hyperlipidemia, diabetes mellitus, recurrent UTIs with resistant organisms, depression, anxiety, history of upper extremity bilateral DVT was brought to the hospital from subacute facility with the complaints of constipation and abdominal distention since 5 days and diagnosed to have large bowel obstruction and acute hypoxic respiratory failure, ARDS secondary to pneumonia likely due to aspiration versus ventilator associated pneumonia. # Acute on chronic hypoxic respiratory failure, s/p tracheostomy # Acute respiratory distress syndrome # Bilateral pneumonia # Hypernatremia #Hyperchloremia # Hypokalemia # New onset atrial fibrillation with rapid ventricular rate # Large bowel obstruction, resolving # Likely due to fecal impaction # S/p PEG tube # Right inguinal hernia, urine bladder as content # History of CVA with residual deficit # History of hyperlipidemia # History of diabetes mellitus # Anemia Currently, as the patient's family opted for vasopressor and ventilator support, continuing Levophed drip and on mechanical ventilator with FiO2 85%, PEEP 8, tidal volume 450 mL on VC/AC mode. No labs were done. Patient was noted to have tachycardia heart rate around 150s, still in atrial fibrillation. Reported that they want to have goals of care discussion after discussing with the entire family. Hospital Maintenance: Dispo: Telemetry DVT ppx: SCD GI ppx: none Diet: npo IV lines: Peripheral Code status: DNR Patient plan of care was discussed with the attending physician, Dr. Deras and senior resident Dr. Corin Shaikh, PGY1 Attending Provider Attestation/Addendum I reviewed labs, imaging, EKG, home medications and prior available records. Face to face evaluation was performed by me. I have personally examined the patient and discussed assessment and plan with the IM team. I reviewed the resident note and agree with the plan with exceptions as below. New onset A-fib with RVR Shock Aspiration pneumonia ARDS Hypokalemia Hypernatremia ZACH Thrombocytopenia Large bowel obstruction Severe constipation Chronic hypoxic respiratory failure History of CVA S/p tracheostomy and PEG tube placement Goals of care discussion/counseling Had recurrence of A-fib with RVR. Restarted amiodarone drip Discussed goals of care again with the family. Family changed their mind as the patient appears slightly improving. Labs ordered and he was moved to ICU physically. He is on mechanical ventilation. Aspiration precautions IV Zosyn Aggressive repletion of potassium, monitor potassium level Started water flushes for the hypernatremia, monitor sodium level Status post 2 manual disimpaction's. Had several bowel movements after Family wants to resume treatments. He will be limited code.
--- NOTE | 2024-06-04 12:01 | PC.SS ---
UTILITY TECHNICIAN met with patient's son, Flavio Pretty; at bedside to confirm arrival of patient's son Saji. Per son Flavio, Saji has not arrived to hospital. UTILITY TECHNICIAN informed that in addition to patient's son Saji, family awaiting arrival of daughter Kim. UTILITY TECHNICIAN informed son, Flavio; need to speak with patient's spouse, Meli Sutton; to confirm plan to transition the patient to comfort care. UTILITY TECHNICIAN updated resident.
[2024-06-04] MEDS: AMIODARONE 150 MG IVPB 150 MG/100 ML BAG 600 MG IV (12:42)
[2024-06-04] MEDS: AMIODARONE 360 MG IVPB 360 MG/200 ML BAG 33.333 MG IV (13:02)
--- NOTE | 2024-06-04 14:35 | PD.RESEVENT ---
Documentation for date of: 06/04/24 Event Note Event Note: On 06/04/2024 around 12 PM, goals of care discussion not done with the family, son and daughter by the bedside. Patient's current condition and prognosis were explained to the family. Explained about the risk of ending up in dialysis and anticipation of invasive procedures like dialysis catheter placement, central line for vasopressors. Family opted for full treatment and DNR as of now. All the questions are explained to their satisfaction. ICU Dr. Avila was informed about the patient's current condition and the family goals. Patient will be under ICU care for further management. Patient plan of care was discussed with the attending physician, Dr. Braeden Shaikh, PGY1
--- NOTE | 2024-06-04 14:52 | PC.SS ---
Addendum entered and electronically signed by ELTON Mesa 06/04/24 14:57: ELTON provided update to Sub-Acute staff. Original Note: Family conducted with patient's daughter (Kim), patient's son (Flavio Guerrero) and patient's spouse. Dr. Coombs provided family with patient's condition, prognosis and current treatment plan. Following overview, patient's spouse confirmed decision to not purse comfort care. Patient will be transitioned to ICU.
--- NOTE | 2024-06-04 15:46 | XR_ITS ---
Examination: AP chest single view Technique one AP portable semiupright chest single view Exam date and time: June 04, 2024 1604 hours Comparison June 03, 2024 INDICATIONS: Pneumonia ARDS pattern on earlier chest imaging FINDINGS: Again noted severe bilateral lung opacity Skinfold over the right hemithorax Tracheostomy tube tip 8.5 cm above delmy Normal heart size IMPRESSION: Again noted severe bilateral pneumonia ARDS pattern
--- NOTE | 2024-06-04 16:04 | ESOP_ITS ---
<Statement entered by Sai Avila MD - 06/05/24 14:21> I was present for the critical and sotomayor portions of the procedure and was immediately available to provide assistance. Unfortunately the femoral vein site was the only appropriate option. IJ not assessable due to tracheostomy collars-the patient's subclavian vein would not be appropriate for a new hemodialysis catheter due to the risk of thrombosis and losing multiple access sites at the same time should a subclavian thrombus develop. Therefore the femoral vein was used. Procedures Procedure Date / Time 06/04/24 7805 Procedural Time Out Time out performed: Yes Central Line Placement Right Femoral: Indication(s): poor, or inadequate peripheral venous access Informed consent obtained: obtained from surrogate decision maker Time out done, and the following verified: correct patient, side and site, procedure, patient position and implants and/or equipment Patient placed on monitor/pulse ox: Yes Hand Hygiene: alcohol-based hand rub Max Sterile Barrier Techniques used: cap, mask, sterile gown, sterile gloves and sterile full body drape Central line prep: Chlorhexidine scrub and sterile drapes applied Local anesthesia used: lidocaine 1% Amount of anesthesia used (mL): 5 Ultrasound used for placement: Yes Sterile Technique if Ultrasound used, including sterile gel: yes Central line lumen inserted: triple (tri-flow) Post procedure: sutured in place, good blood return, all ports aspirated, flushed, capped and sterile dressing applied Patient tolerated procedure: well and no complications EBL(ml): 10 Complications: none Procedure comment: US exam of neck was performed. Even with high IJ placement, there would not be enough room around the tracheostomy straps to ensure sterility. Subclavien vein insertion was considered, but not deemed a better choice than femoral line insertion for this patient. Procedure was performed under the supervision of Dr. Avila. Jayjay Malagon MD PGY-1
[2024-06-04 16:29] LABS: Base Excess, Venous -2 (-3-3); Lactate (Lactic Acid) 2.4 mMol/L (0.4-2.0); O2 Saturation, Venous 93 % (96-97); PCO2, Venous 31 mmHg (36-56); PO2, Venous 64 mmHg (15-58); pH, Venous 7.45 (7.33-7.66)
[2024-06-04] MEDS: VANCOMYCIN/NS 1 GM IVPB 200 ML IV (16:29)
[2024-06-04 16:31] LABS: Basophils # (Auto) 0.1 Thou/mm3 (0.0-0.2); Basophils % (Auto) 0 % (0-2.5); Eosinophils % (Auto) 0 % (0-10); Hematocrit 24.8 % (41.0-53.0); Immature Granulocytes % (Auto) 1 % (0-0); Lymphocytes # (Auto) 0.3 Thou/mm3 (1.0-4.8); Lymphocytes % (Auto) 2 % (10-50); Mean Corpuscular HGB Conc 33.5 g/dl (31.0-37.0); Mean Corpuscular Hemoglobin 28.6 pg (25.0-35.0); Mean Corpuscular Volume 86 fL (80-100); Monocytes # (Auto) 0.4 Thou/mm3 (0.0-0.8); Monocytes % (Auto) 3 % (0-12); Neutrophils # (Auto) 14.2 Thou/mm3 (1.8-7.7); Neutrophils % (Auto) 94 % (37-80); Nucleated Red Blood Cell # 0.03 Thou/mm3 (0.00-0.00); Nucleated Red Blood Cell % 0 /100 WBC (0); Platelet Count 103 Thou/mm3 (140-440); RDW Standard Deviation 51.8 fL (35.1-43.9)
[2024-06-04] MEDS: PANTOPRAZOLE INJ 40 MG VIAL IVP (16:38)
[2024-06-04] MEDS: ACETAMINOPHEN SOL 325 MG/10 ML UDC 650 MG GT (16:40)
--- NOTE | 2024-06-04 16:44 | ESPR_ITS ---
<Statement entered by Sai Avila MD - 06/05/24 15:41> TOTAL CC TIME: 45 MIN I saw and evaluated the patient. I reviewed the resident?s note and agree with findings and plan as documented in the resident?s note. Upon my evaluation, this patient had a high probability of imminent or life- threatening deterioration due to septic shock from polymicrobial pneumonia and aspiration pneumonia with acute hypoxic respiratory failure which required my direct attention, intervention, and personal management. This time is exclusive of time spent on procedures, which are documented separately if performed. The patient was transferred to the ICU after the family rescinded the DNR and comfort care plan discussed previously. Chest x-ray does demonstrate some clearing of the aspiration however patient's ventilation remains critically high and he has severe hypoxic respiratory failure. Continue levofloxacin and obtain new cultures. Hemodialysis catheter was placed due to ATN. Supervisor [employer] is following the patient and hemodialysis will be planned when deemed appropriate and if patient's hemodynamics improve to the point where he can be safely performed. 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 Patient recently came to the ED on 05/24/2024 with similar complaints and received enema following which patient had a bowel movement and transferred back to the facility. Later patient was still found to have constipation for which Dr. Durant was consulted and patient received different bowel regimens and GoLytely with no much effect on constipation. As the patient is having progressive severe abdominal distention with constipation despite bowel regimens and GoLytely he was brought to the hospital today. No history of fever, vomiting. Dr. Durant was consulted and he tried to manually disimpact the stools but unsuccessful. Later Dr Cramer was consulted. ED Course: -Initial vitals were blood pressure 140/84 mmHg, pulse rate 101 bpm, respiratory rate 22/min, SpO2 98% on mechanical ventilator on AC/VC mode. -Labs significant for WBC 9.1, Hb 11.8, platelets 241, sodium 138, potassium 3.3, chloride 90, bicarb 37.1, lactate 1.2, AST 41, ALT 23, procalcitonin 0.07 -CT abdomen/pelvis showed markedly distended large bowel with rectal thickening, massive stool impaction in the rectosigmoid colon and right inguinal hernia with urinary bladder as content -In the ED, patient was given potassium, cefepime. -Patient was admitted for Past medical history: CVA, hypertension, hyperlipidemia, diabetes mellitus, chronic PEG, COPD Past surgical history: PEG tube placement Social history: Unknown Patient developed worsening labs, respiratory distress with hypoxia, fever, and hypotension on the floors prompting rapid response. At bedside patient had MAP 41, with weak and slow peripheral pulse. Patient had clear mottling of feet, knees, hands. Chest x-ray showed worsening infiltrates of both lungs, especially prominent in left lung. Patient upgraded to ICU for worsening acute hypoxic respiratory failure, hypotension with weak peripheral pulses. Patient did not require pressors, received 2 L bolus lactated Ringer's with significant improvement in blood pressure. Peripheral pulse improved as well, heart rate WNL. Patient had multiple bowel movements with stabilizing of respiratory function, downgraded to telemetry. ICU consulted due to afib with RVR, worsening hypotension, requiring pressers to maintain MAP >65, and worsening respiratory distress requiring bagging for 1 hour. GOC discussion was held this morning with patient's and son. [employer]less Grinder, hospitalist team, and RN were at bedside. Interpretive services were utilized. and son were updated with the critical nature of patient's condition, including shock, severe respiratory distress with hypoxia while on 100% FiO2, severe hypokalemia, hypernatremia, atrial fibrillation with rapid ventricular response, organ dysfunction/lactic acidosis (worsening ZACH without urine output, likely secondary to shock) in addition to chronic conditions (h/o CVA leaving patient bedbound and fully dependent, chronic respiratory failure, chronic PEG). Family understood the poor prognosis for the patient, and requested to speak with patient's other children. Later, family made a decision and would like to initiate comfort measures once the youngest son is at bedside, likely color matcher on 06/04. Plan is to discontinue all medications and lab draws at this time, other than levophed via peripheral IV, until patient's son arrives on 06/04. Once son arrives, hospitalist team will discontinue levophed and start comfort measures. Family is aware that PIV may fail, and patient may possibly pass overnight. 06/04/2024: Rapid response was called when patient developed afib with RVR. Hospitalist team initiated amiodarone drip for patient. Family re-initiated goals of care discussion, deciding to change patient to be limited code (no compressions) and otherwise reciev full treatment, including line placements and dialysis if necessary. Patient was then transferred to ICU for intensive management. Hospitalist team resumed patients previous meds. To facilitate lab draws and dialysis if necessary, a tri-flow central line was placed. After US exam of the neck, it was determined that even with high IJ placement there was not enough room around tracheostomy strap to maintain sterility, and a femoral line was placed without incident. Blood cultures, labs, CXR ordered. CXR showed severe diffuse pneumonia. Patient receiving broad spectrum antibiotics. Patient on pressors. Exam Vital Signs Temp Pulse Resp BP Pulse Ox O2 Del Method O2 Flow Rate 101.6 F H 111 H 32 H 103/58 L 97 Mechanical Ventilation 15 06/04/24 16:40 06/04/24 16:00 06/04/24 16:00 06/04/24 16:00 06/04/24 16:00 06/04/24 15:00 06/02/24 17:50 FiO2 30 06/04/24 15:00 Narrative Exam PE: Gen: Alert, poorly responsive. Tracheostomy. HEENT: NCAT, PERRLA, EOMI, anicteric conjunctivae. Dry mucous membranes. CVS: normal S1 and S2. Regular rhythm. No M/R/G. Resp: Coarse lung sounds. Rhonchi and wheezing all lung ansari. Abd: Abdomen distended, soft. PEG tube. MSK: Good ROM in BUE & BLE. Bilateral lower and upper extremity edema. Edematous scrotum. Neuro: CN II-XII grossly intact. Baseline nonverbal. Sometimes tracks sounds. Objective Labs 06/04/24 16:07 06/04/24 16:07 Labs: Laboratory Results - last 24 hr 06/04/24 16:07 VBG pH 7.45 VBG pCO2 31 L VBG pO2 64 H VBG O2 Sat (Lo) 93 L VBG Base Excess -2 Lactic Acid 2.4 H ABG Interpretation ABG results: 05/31/24 05/31/24 05/31/24 09:33 14:33 16:21 ABG pH 7.25 L 7.18 L* 7.30 L D ABG pCO2 68 H 78 H* D 57 H D ABG pO2 88 124 H D 69 L D ABG HCO3 30 H 29 H 28 H ABG O2 Saturation 96 99 H 94 ABG Base Excess 2 -1 1 VBG pH VBG pCO2 VBG pO2 VBG Base Excess 06/01/24 06/02/24 06/04/24 07:51 18:15 16:07 ABG pH 7.49 H D 7.47 H ABG pCO2 37 D 44 ABG pO2 49 L* D 48 L* ABG HCO3 28 H 32 H ABG O2 Saturation 89 L 86 L ABG Base Excess 5 H 7 H VBG pH 7.45 VBG pCO2 31 L VBG pO2 64 H VBG Base Excess -2 Quality Measures Quality Measures VTE prophylaxis Advance care planning discussed with:: spouse and child Assessment & Plan Assessment Current Active Medications: Generic Name Dose Route Start Last Admin Trade Name Freq PRN Reason Stop Dose Admin Acetaminophen 650 mg 06/04/24 15:09 06/04/24 16:40 Acetaminophen Lindsey 325 Mg/10 Ml Udc GT 07/04/24 15:08 650 mg Q6HR PRN Administration Pain Or Fever > 100.4 Albuterol/Ipratropium 3 ml 06/04/24 15:33 Albuterol/Ipratropium (Duoneb) Rt Lindsey 3 Ml Nebu INH 07/04/24 15:32 Q2HR PRN SHORTNESS OF BREATH OR WHEEZE Dextrose 25 ml 06/04/24 15:32 Dextrose 50%-Water Inj 50 Ml Syringe IV 07/04/24 15:31 Q15MIN PRN BG 50-70 responsive npo pt Dextrose 50 ml 06/04/24 15:32 Dextrose 50%-Water Inj 50 Ml Syringe IV 07/04/24 15:31 Q15MIN PRN BG <50 OR BG <70 & pt unresponsive Norepinephrine/Dextrose 8 mg in 250 mls @ 6.572 mls/hr 06/03/24 11:37 06/04/24 13:06 Levophed In D5w 8mg/250ml IV 07/03/24 11:36 0.43 mcg/kg/min .Q24H PRN 56.518 mls/hr PER PROTOCOL Titration Protocol 0.05 MCG/KG/MIN Amiodarone HCl/Dextrose 360 mg in 200 mls @ 33.333 mls/hr 06/04/24 12:37 06/04/24 13:02 Nexterone Ivpb IV 06/04/24 18:36 33.333 mls/hr .Q6H ONE Administration Amiodarone HCl/Dextrose 360 mg in 200 mls @ 16.667 mls/hr 06/04/24 12:38 Nexterone Ivpb IV 06/05/24 12:37 .Q12H XOCHITL Piperacillin/Tazobactam/Dextrose 3.375 gm in 50 mls @ 12.5 mls/hr 06/04/24 22:00 Zosyn IV 06/11/24 15:11 Q8HR XOCHITL Protocol Vancomycin/Sodium Chloride 200 mls @ 120 mls/hr 06/04/24 15:45 06/04/24 16:29 Vancomycin/Ns 1 Gm Ivpb IV 06/11/24 15:44 120 mls/hr QDAY@1000 XOCHITL Administration Protocol Insulin Human Regular 0 unit 06/04/24 18:00 Insulin Hum Regular 1 Unit/0.01 Ml (Per Unit) SC 07/04/24 17:59 Q6HR XOCHITL Protocol Lactulose 20 gm 06/04/24 22:00 Lactulose Syrup 20 Gm/30 Ml Udc PO 07/04/24 21:59 TID XOCHITL Protocol Pantoprazole Sodium 40 mg 06/04/24 15:30 06/04/24 16:38 Pantoprazole Inj 40 Mg Vial IVP 07/04/24 15:29 40 mg QDAY XOCHITL Administration Pharmacy Consult 1 each 06/04/24 15:23 Pharmacy Renal Dose Adjustment 1 Ea XX 07/04/24 15:22 PRN PRN CONSULT Pharmacy Consult 1 each 06/04/24 15:45 Vancomycin Pharmacy To Dose 1 Each Each IV 07/04/24 15:44 QDAY PRN PROTOCOL Plan 73-year-old male with 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 Neuro: #Acute encephalopathy #CVA with residual deficits Metabolic encephalopathy due to severe constipation, hypoxia, metabolic disturbances. Patient is nonverbal at baseline, per family at bedside he is normally somewhat interactive. Currently patient is responsive only to pain, does not open eyes or track sounds. -Treat underlying conditions -Monitor Cardio: #Septic shock Patient developed severe hypotension causing rapid response to be called, MAP 41. Patient had notable mottling of hands, knees, feet. Patient has had fevers, leukocytosis. Patient showed significant improvement after 2 L bolus lactated Ringer's, hypotension resolved. Patient was downgraded, and per family wishes labs and medications other than levophed were discontinued. Patient's family later elected to resume treatment. Patient developed new fevers, increased leukocytosis. Procal 8.19. Repeat blood cultures drawn -Close monitoring -Levophed, titrate as needed -Continue antibiotics: Vancomycin and Zosyn -Follow-up blood cultures #Afib with RVR Patient developed afib with RVR prompting rapid response. Amio bolus given, drip initiated -amiodarone drip -telemonitoring Pulm: #Acute hypoxic respiratory failure #Pneumonia Patient developed worsening hypoxia despite increasing FiO2 on the floors. Chest x-ray shows significant bilateral pneumonia, more severe on the left side. Patient has significantly distended abdomen, present on lungs. ABG showed pH 7.18, pCO2 70, pO2 124. Vent settings changed to increase tidal volume and respiratory rate, repeat ABG showed pH 7.3, pCO2 57, pO2 69. -Maintain vent settings, wean down FiO2 as tolerated -Duoneb as needed -Antibiotics as above GI: #PEG tube Patient has chronic PEG tube. Feeds have been held due to large bowel obstruction, now resolved. -Consider resuming tube feeds tomorrow. Renal: #Hypokalemia Patient has had severely low potassium, down to 2.2. Patient was given multiple doses of potassium chloride, potassium improved to 3.5. After family requested treatment, repeat labs were drawn, potassium 2.2. 60mEq GT and 10 mEq IV ordered. -Monitor -Replete as needed Endo: #DM Patient history -ISS Heme: #Leukocytosis Likely due to infection -Monitor #Normocytic anemia Patient has chronic normocytic anemia, slightly worse than normal currently. No signs of bleeding. -Monitor ID: #Pneumonia Patient has severe bilateral pneumonia. Procal 8.19. Fevers. Patient received Vancomycin and Zosyn previously. Will adjust antibiotic dosage for reduced creatinine clearance -Levofloxacin 750 mg IV x1 -Levofloxacin 500 mg IV q48h (Started 06/04) -Follow up blood cultures -Tylenol as needed for fevers Skin/MSK: #No active issues ICU Health maintenance: Mechanical ventilation: Yes Sedation: No Diet: None DVT ppx: Heparin GI ppx: Protonix Godinez: No IV lines: Peripheral IVs Central line: Femoral Arterial line: No Code status: Limited Code: No compressions Plan of care discussed with attending Dr. Avila. Jayjay Malagon MD PGY-1
[2024-06-04 16:46] LABS: Hemoglobin 8.3 g/dL (13.5-16.0)
[2024-06-04] MEDS: PIPER/TAZO 3.375 GM 3.375 GM/50 ML BAG IV (16:52)
[2024-06-04 16:59] LABS: Alanine Aminotransferase 55 U/L (10-49); Albumin, Serum 2.7 gm/dL (3.4-4.8); Albumin/Globulin Ratio 1.2 (1.2-2.2); Alkaline Phosphatase 101 U/L (46-116); Anion Gap 16 (7-16); Aspartate Amino Transferase 157 U/L (0-34); BUN/Creatinine Ratio 15 Ratio (12-20); Bilirubin,Total 0.4 mg/dL (0.3-1.2); Blood Urea Nitrogen 43 mg/dL (9-23); Calcium (Corrected) 7.8 mg/dL (8.5-10.1); Carbon Dioxide 22.9 mMol/L (20.0-31.0); Chloride 111 mMol/L (98-107); Creatinine (Component) 2.9 mg/dL (0.6-1.3); Globulin 2.2 gm/dL (2.3-3.5); Glucose 98 mg/dL (74-106); Magnesium 2.2 mg/dL (1.6-2.6); Osmolality,Calculated 308 (275-295); Phosphorous 6.3 mg/dL (2.4-5.1); Procalcitonin 8.19 ng/ml (0.0-0.49); Sodium 150 mMol/L (136-145); Total Protein 4.9 gm/dL (5.7-8.2); eGFR 22 See Note
[2024-06-04 17:03] LABS: Potassium 2.2 mMol/L (3.4-5.1)
[2024-06-04 17:04] LABS: Calcium 6.8 mg/dL (8.3-10.6)
[2024-06-04] MEDS: POTASSIUM CHLORIDE 10% 20 MEQ/15 ML UDC 40 MEQ GT (17:30)
[2024-06-04] MEDS: POTASSIUM CHL 10 mEq IVPB 10 MEQ/100 ML BAG 100 MEQ IV (17:31)
[2024-06-04] MEDS: POTASSIUM CHLORIDE 10% 20 MEQ/15 ML UDC GT (17:31)
[2024-06-04] MEDS: Norepinephrine/D5W 8mg/250ml 8 MG/250 ML BAG 56.518 MG IV (18:12)
[2024-06-04] MEDS: CALCIUM ACETATE 667 MG TABLET PO (18:51)
[2024-06-04] MEDS: LEVOFLOXACIN/D5W 750MG IVPB 750 MG/150 ML BAG 100 MG IV (18:51)
[2024-06-04] MEDS: AMIODARONE 360 MG IVPB 360 MG/200 ML BAG 16.667 MG IV (19:00)
[2024-06-04 19:26] LABS: Reflex Lactate? Y
[2024-06-04 20:03] LABS: Lactic Acid, 3 HR 3.4 mMol/L (0.4-2.0)
[2024-06-04] MEDS: HEPARIN SOD INJ 5000 UNIT/ML VIAL SC (21:23)
[2024-06-04 23:55] LABS: Potassium 2.8 mMol/L (3.4-5.1)
[2024-06-05] VITALS (107 sets, daily range): BP systolic 70–126; BP diastolic 42–89; PULSE 76–141; RESP 27–40; TEMP 36.3–37.3; O2SAT 85–111
[2024-06-05] MEDS: POTASSIUM CHLORIDE 10% 20 MEQ/15 ML UDC 40 MEQ GT ×2 (00:37→08:58)
--- NOTE | 2024-06-05 01:00 | PC.NURSE ---
informed Dr Mark of sdti injuries to back/buttocks/thigh
[2024-06-05 05:44] LABS: Basophils % (Auto) 0 % (0-2.5); Eosinophils % (Auto) 0 % (0-10); Hematocrit 23.6 % (41.0-53.0); Immature Granulocytes % (Auto) 1 % (0-0); Immature Granulocytes Auto 0.07 Thou/mm3 (0.00-0.00); Lymphocytes # (Auto) 0.4 Thou/mm3 (1.0-4.8); Lymphocytes % (Auto) 3 % (10-50); Mean Corpuscular HGB Conc 33.9 g/dl (31.0-37.0); Mean Corpuscular Hemoglobin 29.1 pg (25.0-35.0); Mean Corpuscular Volume 86 fL (80-100); Monocytes # (Auto) 0.4 Thou/mm3 (0.0-0.8); Monocytes % (Auto) 3 % (0-12); Neutrophils # (Auto) 13.3 Thou/mm3 (1.8-7.7); Neutrophils % (Auto) 94 % (37-80); Nucleated Red Blood Cell # 0.02 Thou/mm3 (0.00-0.00); Nucleated Red Blood Cell % 0 /100 WBC (0); Platelet Count 78 Thou/mm3 (140-440); RDW Standard Deviation 50.7 fL (35.1-43.9); Red Blood Count 2.75 Miln/mm3 (4.50-5.90); White Blood Count 14.2 Thou/mm3 (3.8-10.6)
[2024-06-05 05:52] LABS: Slide Review Platelets confirmed
[2024-06-05] MEDS: LACTULOSE SYRUP 20 GM/30 ML UDC PO (06:10)
[2024-06-05] MEDS: LORazepam 2 MG/ML VIAL IVP (06:33)
[2024-06-05 06:35] LABS: Alanine Aminotransferase 78 U/L (10-49); Albumin, Serum 2.4 gm/dL (3.4-4.8); Alkaline Phosphatase 157 U/L (46-116); Anion Gap 17 (7-16); Aspartate Amino Transferase 209 U/L (0-34); BUN/Creatinine Ratio 16 Ratio (12-20); Bilirubin,Total 0.9 mg/dL (0.3-1.2); Blood Urea Nitrogen 52 mg/dL (9-23); Calcium 7.1 mg/dL (8.3-10.6); Calcium (Corrected) 8.4 mg/dL (8.5-10.1); Carbon Dioxide 21.3 mMol/L (20.0-31.0); Chloride 113 mMol/L (98-107); Creatinine (Component) 3.2 mg/dL (0.6-1.3); Estimated Creatinine Clearance 17.2 mL/min (>60); Globulin 2.3 gm/dL (2.3-3.5); Glucose 122 mg/dL (74-106); Osmolality,Calculated 314 (275-295); Potassium 2.9 mMol/L (3.4-5.1); Sodium 151 mMol/L (136-145); Total Protein 4.7 gm/dL (5.7-8.2); eGFR 20 See Note
--- NOTE | 2024-06-05 06:49 | PC.NURSE ---
@ 0617 pt noted to be having rhytmic up and down eye movements called Dr Mark @ 0619. Dr Mark and Dr Stevenson at bedside @ 0626 to assess pt. pt still having eye movements and rhytmic belly spasms noted unclear if seizure activity Ativan 2mg iv x1 ordered and administered and movements stopped
[2024-06-05] MEDS: Norepinephrine/D5W 8mg/250ml 8 MG/250 ML BAG 14.458 MG IV (07:23)
[2024-06-05 08:56] LABS: Hepatitis A Antibody IgM Non Reactive (Non React); Hepatitis B Core Antibody IgM Non Reactive (Non React); Hepatitis B Surface Ab NonReact(Not Immune) (Immune); Hepatitis B Surface Antigen Non Reactive (Non React); Hepatitis C Antibody Non Reactive (Non React)
[2024-06-05] MEDS: PANTOPRAZOLE INJ 40 MG VIAL IVP (08:58)
[2024-06-05] MEDS: CALCIUM ACETATE 667 MG TABLET PO ×3 (08:58→18:45)
[2024-06-05] MEDS: CITRIC ACID/SODIUM CITR 15 ML UDC (BICITRA) 30 ML GT (08:58)
[2024-06-05] MEDS: POTASSIUM CHL 10 mEq IVPB 10 MEQ/100 ML BAG 100 MEQ IV ×2 (08:59→10:18)
[2024-06-05] MEDS: AMIODARONE 360 MG IVPB 360 MG/200 ML BAG 16.667 MG IV (09:00)
[2024-06-05] MEDS: ALBUMIN HUMAN 25% IVPB 25 GM/100 ML BTL IV ×2 (09:05→10:18)
--- NOTE | 2024-06-05 09:44 | PD.RESPRO ---
Documentation for date of: 06/05/24 Subjective Subjective Interval history: Patient was seen at bedside this morning. Patient continues to be in A-fib overnight. Patient is still on amio drip Recommend to continue amiodarone drip and start oral amiodarone 400 mg twice daily for loading amiodarone completely Can give additional digoxin if needed for rate control when patient potassium and kidney function are stable. Recommend to start Eliquis 5 mg twice daily if no contraindications. Recommend ICU team to have goals of care discussion with family. Potassium 2.9 today, no magnesium today, recommend to keep potassium and magnesium above 4 and 2 respectively to avoid any further arrhythmias Kidney function continues to decline with creatinine 3.2 compared to 2.9 yesterday and BUN at 52 from 43 yesterday. Exam Vital Signs Temp Pulse Resp BP Pulse Ox O2 Del Method O2 Flow Rate 97.9 F 105 H 36 H 97/45 L 93 L Mechanical Ventilation 15 06/05/24 07:00 06/05/24 09:00 06/05/24 08:15 06/05/24 09:00 06/05/24 08:15 06/05/24 04:00 06/02/24 17:50 FiO2 70 06/05/24 07:51 Narrative Exam General: Nonverbal and unresponsive. Eyes: Pupils were difficult to assess due to cataracts Ears: No visible ear discharge Nose: No visible nasal discharge. Mouth/Throat: Dry mucous membranes, no redness, no lesions. Neck: Neck supple, no cervical lymphadenopathy. Lungs: Bronchial breath sounds bilateral Cardio: Normal S1/S2, irregular rhythm, no murmurs, no JVD Abdomen: Soft no palpable masses, peristalsis present, no guarding or rebound, PEG tube in place, 2 small 1 to 2 cm dry near the umbilicus wounds Extremities: Symmetrical, no significant deformities, 2+ peripheral edema upto thighd,peripheral pulses presents. Skin: No rashes, no lesions, warm to touch. Neuro: Cannot be assessed due to patient's medical condition Psych: Flat affect Objective Labs 06/05/24 18:08 06/05/24 13:45 Labs: Laboratory Results - last 24 hr 06/04/24 06/04/24 06/04/24 16:07 19:42 23:34 WBC 15.0 H D RBC 2.90 L Hgb 8.3 L Hct 24.8 L MCV 86 MCH 28.6 MCHC 33.5 RDW Std Deviation 51.8 H Plt Count 103 L Neut % (Auto) 94 H Lymph % (Auto) 2 L [place] % (Auto) 3 Eos % (Auto) 0 Baso % (Auto) 0 Neut # (Auto) 14.2 H Lymph # (Auto) 0.3 L [place] # (Auto) 0.4 Eos # (Auto) 0.0 Baso # (Auto) 0.1 Immature Gran # (Auto) 0.10 H Absolute Nucleated RBC 0.03 H Immature Gran % 1 H Nucleated RBC % 0 VBG pH 7.45 VBG pCO2 31 L VBG pO2 64 H VBG O2 Sat (Lo) 93 L VBG Base Excess -2 Sodium 150 H Potassium 2.2 L* 2.8 L D Chloride 111 H Carbon Dioxide 22.9 Anion Gap 16 BUN 43 H Creatinine 2.9 H D Estim Creat Clear Calc 19.0 L eGFR 22 L BUN/Creatinine Ratio 15 Glucose 98 Calculated Osmolality 308 H Lactic Acid 2.4 H 3.4 H Calcium 6.8 L* Corrected Calcium 7.8 L Phosphorus 6.3 H Magnesium 2.2 Total Bilirubin 0.4 AST 157 H ALT 55 H Alkaline Phosphatase 101 D Total Protein 4.9 L Albumin 2.7 L Globulin 2.2 L Albumin/Globulin Ratio 1.2 Procalcitonin 8.19 H Hepatitis A IgM Ab Hep Bs Antigen Hep Bs Antibody Hep B Core IgM Ab Hepatitis C Antibody [facility] [place], [place] Test Result 06/05/24 05:07 WBC 14.2 H RBC 2.75 L Hgb 8.0 L Hct 23.6 L MCV 86 MCH 29.1 MCHC 33.9 RDW Std Deviation 50.7 H Plt Count 78 L D Neut % (Auto) 94 H Lymph % (Auto) 3 L [place] % (Auto) 3 Eos % (Auto) 0 Baso % (Auto) 0 Neut # (Auto) 13.3 H Lymph # (Auto) 0.4 L [place] # (Auto) 0.4 Eos # (Auto) 0.0 Baso # (Auto) 0.0 Immature Gran # (Auto) 0.07 H Absolute Nucleated RBC 0.02 H Immature Gran % 1 H Nucleated RBC % 0 VBG pH VBG pCO2 VBG pO2 VBG O2 Sat (Lo) VBG Base Excess Sodium 151 H Potassium 2.9 L Chloride 113 H Carbon Dioxide 21.3 Anion Gap 17 H BUN 52 H Creatinine 3.2 H Estim Creat Clear Calc 17.2 L eGFR 20 L BUN/Creatinine Ratio 16 Glucose 122 H Calculated Osmolality 314 H Lactic Acid Calcium 7.1 L Corrected Calcium 8.4 L Phosphorus Magnesium Total Bilirubin 0.9 D AST 209 H ALT 78 H Alkaline Phosphatase 157 H D Total Protein 4.7 L Albumin 2.4 L Globulin 2.3 Albumin/Globulin Ratio 1.0 L Procalcitonin Hepatitis A IgM Ab Non Reactive Hep Bs Antigen Non Reactive Hep Bs Antibody NonReact(Not Immune) L Hep B Core IgM Ab Non Reactive Hepatitis C Antibody Non Reactive Misc Test Result Platelets confirmed ABG Interpretation ABG results: 05/31/24 05/31/24 05/31/24 09:33 14:33 16:21 ABG pH 7.25 L 7.18 L* 7.30 L D ABG pCO2 68 H 78 H* D 57 H D ABG pO2 88 124 H D 69 L D ABG HCO3 30 H 29 H 28 H ABG O2 Saturation 96 99 H 94 ABG Base Excess 2 -1 1 VBG pH VBG pCO2 VBG pO2 VBG Base Excess 06/01/24 06/02/24 06/04/24 07:51 18:15 16:07 ABG pH 7.49 H D 7.47 H ABG pCO2 37 D 44 ABG pO2 49 L* D 48 L* ABG HCO3 28 H 32 H ABG O2 Saturation 89 L 86 L ABG Base Excess 5 H 7 H VBG pH 7.45 VBG pCO2 31 L VBG pO2 64 H VBG Base Excess -2 Quality Measures Quality Measures VTE prophylaxis Advance care planning discussed with:: patient Assessment & Plan Assessment Current Active Medications: Generic Name Dose Route Start Last Admin Trade Name Freq PRN Reason Stop Dose Admin Acetaminophen 650 mg 06/04/24 15:09 06/04/24 16:40 Acetaminophen Lindsey 325 Mg/10 Ml Udc GT 07/04/24 15:08 650 mg Q6HR PRN Administration Pain Or Fever > 100.4 Albuterol/Ipratropium 3 ml 06/04/24 15:33 Albuterol/Ipratropium (Duoneb) Rt Lindsey 3 Ml Nebu INH 07/04/24 15:32 Q2HR PRN SHORTNESS OF BREATH OR WHEEZE Calcium Acetate 667 mg 06/04/24 18:45 06/05/24 08:58 Calcium Acetate 667 Mg Tablet PO 07/04/24 18:44 667 mg TIDWM XOCHITL Administration Citric Acid/Sodium Citrate 30 ml 06/05/24 09:00 06/05/24 08:58 Citric Acid/Sodium Citr 15 Ml Udc (Bicitra) GT 07/05/24 08:59 30 ml DAILY XOCHITL Administration Dextrose 25 ml 06/04/24 15:32 Dextrose 50%-Water Inj 50 Ml Syringe IV 07/04/24 15:31 Q15MIN PRN BG 50-70 responsive npo pt Dextrose 50 ml 06/04/24 15:32 Dextrose 50%-Water Inj 50 Ml Syringe IV 07/04/24 15:31 Q15MIN PRN BG <50 OR BG <70 & pt unresponsive Heparin Sodium (Porcine) 5,000 unit 06/04/24 22:00 06/05/24 06:09 Heparin Sod Inj 5000 Unit/Ml Vial SC 06/18/24 21:59 Not Given Q8HR XOCHITL Norepinephrine/Dextrose 8 mg in 250 mls @ 6.572 mls/hr 06/03/24 11:37 06/05/24 07:23 Levophed In D5w 8mg/250ml IV 07/03/24 11:36 0.11 mcg/kg/min .Q24H PRN 14.458 mls/hr PER PROTOCOL Administration Protocol 0.05 MCG/KG/MIN Amiodarone HCl/Dextrose 360 mg in 200 mls @ 16.667 mls/hr 06/04/24 12:38 06/05/24 09:00 Nexterone Ivpb IV 06/05/24 12:37 16.667 mls/hr .Q12H XOCHITL Administration Levofloxacin/Dextrose 500 mg in 100 mls @ 100 mls/hr 06/06/24 18:30 Levaquin Ivpb IV 06/13/24 18:29 Q48H XOCHITL Potassium Chloride 10 meq in 100 mls @ 100 mls/hr 06/05/24 08:40 06/05/24 08:59 Kcl Ivpb IV 06/05/24 12:39 100 mls/hr Q1H XOCHITL Administration Albumin Human 25 gm in 100 mls @ 100 mls/hr 06/05/24 09:15 06/05/24 09:05 Albuminar-25 Ivpb IV 06/05/24 11:14 100 mls/hr Q1H XOCHITL Administration Insulin Human Regular 0 unit 06/04/24 18:00 06/05/24 05:54 Insulin Hum Regular 1 Unit/0.01 Ml (Per Unit) SC 07/04/24 17:59 Not Given Q6HR XOCHITL Protocol Lactulose 20 gm 06/04/24 22:00 06/05/24 06:10 Lactulose Syrup 20 Gm/30 Ml Udc PO 07/04/24 21:59 20 gm TID XOCHITL Administration Protocol Pantoprazole Sodium 40 mg 06/04/24 15:30 06/05/24 08:58 Pantoprazole Inj 40 Mg Vial IVP 07/04/24 15:29 40 mg QDAY XOCHITL Administration Pharmacy Consult 1 each 06/04/24 18:24 Pharmacy Renal Dose Adjustment 1 Ea XX 07/04/24 18:23 PRN PRN CONSULT Plan 73-year-old male with past medical history of 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 1. A-fib with RVR, new onset 2. Hypokalemia ?Patient developed A-fib with RVR on 06/02/2024 ?Initial EKG showed on admission sinus tachycardia. ?Repeat EKG on 05/31/2024 that showed sinus rhythm ?EKG on 06/02/2024 showed A-fib with RVR and at this time patient's potassium was 2.9. ?Patient is currently Limited code (no chest compressions) as per family's wishes ? Patient' family did not want any cardioversion at this time. Plan: ?Continue amiodarone drip and start amiodarone 400 p.o BID ?Recommend start patient on Eliquis 5 mg twice daily -Can give additional digoxin if needed for rate control when patient potassium and kidney function are stable. -Cannot start beta-valarie or diltiazem as the patient continue to be hypotensive ? Recommend to keep potassium magnesium above 4 and 2 respectively to avoid any further arrhythmias ?Recommend primary care team to have goals of care discussion 3. Acute on chronic hypoxic respiratory failure 4. Bilateral community-acquired pneumonia versus hospital-acquired pneumonia ? Continue management as per primary care team 5. Large bowel obstruction ?Continue management as per primary care team 6. CVA with residual deficits 7. Chronic PEG tube and tracheostomy ?Continue current management per primary care team 8. DM2 ? Continue current management as per primary care team 9. Bilateral upper extremity DVTs ? Continue current management as per primary care team 10. Anxiety 11. Depression ? Continue current management as per primary care team 12. Recurrent UTIs ? Continue current management as per primary care team Continue rest of management as per primary team. We are grateful to be able to participate in Mr. Sosa' care. Thank you for the consult Plan of care discussed with attending Floor Installation Mechanic, Dr. Georgia Mcmahan MD PGY-1 Attending Provider Attestation/Addendum I have personally seen and examined the patient separately on the above date of service and discussed the plan of care with the resident. I reviewed the resident Dr. Allen consultation progress note and agree with the resident findings and plan in the note above and have also edited the documentation to reflect my findings and plan. Kit Ho M.D. Interventional Cardiology
--- NOTE | 2024-06-05 13:56 | CHAP ---
09:30 AM Visited by spiritual care volunteer Provided prayer for Patient.
[2024-06-05 14:21] LABS: Albumin, Serum 3.2 gm/dL (3.4-4.8); Anion Gap 15 (7-16); BUN/Creatinine Ratio 17 Ratio (12-20); Blood Urea Nitrogen 58 mg/dL (9-23); Calcium 7.1 mg/dL (8.3-10.6); Calcium (Corrected) 7.7 mg/dL (8.5-10.1); Carbon Dioxide 22.4 mMol/L (20.0-31.0); Chloride 113 mMol/L (98-107); Creatinine (Component) 3.4 mg/dL (0.6-1.3); Estimated Creatinine Clearance 16.2 mL/min (>60); Glucose 110 mg/dL (74-106); Osmolality,Calculated 315 (275-295); Phosphorous 5.3 mg/dL (2.4-5.1); Potassium 3.5 mMol/L (3.4-5.1); Sodium 150 mMol/L (136-145); eGFR 18 See Note
--- NOTE | 2024-06-05 14:46 | PD.RESCONSUL ---
HPI Data of Consult Consult date: 06/05/24 Requesting Physician: Ady Martínez MD Admitting Provider: Leonid Deras MD Attending Provider: Ady Martínez MD Primary Care Provider: Juan Rolle MD Consult Narrative Reason for consult: ZACH History of present illness: The patient is a 73-year-old male with previous medical history of CVA, severe cognitive deficit, chronic PEG tube and tracheostomy placement, hyperlipidemia, diabetes mellitus, recurrent UTIs, depression, anxiety, upper extremity bilateral DVT who is a subacute facility resident. He was brought to the hospital due to constipation and abdominal distention for 5 days. Earlier he had similar problems and received enema, had a bowel movement and was transferred back to the facility. He had a manual disimpaction and copious amount of soft stools was evacuated by Dr. Cramer. Rectal tube was placed. Later in admission patient had developed fever, became tachycardic, tachypneic. Imaging showed bilateral pneumonia with continued to worsen, he was started on fluids. He was not able to maintain MAP more than 65, was started on Levophed. Also, EKG showed A-fib with RVR and was started on amiodarine drip. He continued to have multiple bowel movements. His labs showed hypokalemia and hypernatremia. His labs throughout admissionshowed uptrending WBC, hypernatremia, persistent hypokalemia and rapidly declining kidney functions. ICU team had a conversation with patient's family over regarding goals of care, patient's family decided to proceed with full treatment but not to proceed with chest compressions in case of cardiac arrest, patient is limited code. [place] Dr. Reed was consulted due to ZACH and electrolyte abnormalities treaent and management. 06/05/2024: Patient was seen and examined by the bedside in the ICU. Saturating in the low 90s on FiO2 70%. Continues to require Levophed support. Labs showed sodium 151, potassium 2.9, chloride 113, bicarb 21.3, BUN 57, creatinine 3.2, EGFR 20, glucose 122, corrected calcium 8.4, AST 209, ALT 78, albumin 2.4. Due to hemodynamic instability and patient continuing to require Levophed, will hold off dialysis for today and will try to correct the electrolyte abnormalities and start free water flushes at 100 mL/h. Repeat renal panel showed sodium 150, potassium 3.5, chloride 113, BUN 58, creatinine 3.4, EGFR 18. cc:: cc: Ady Martínez MD Review of Systems Review of Systems ROS Unobtainable: unobtainable due to mental status and unobtainable due to medical condition Past Medical History Past Medical History NEUROLOGIC: Positive Neurological Disorders, Cerebrovascular Accident and Dementia CARDIAC: Positive Hypercholesterolemia and Hypertension RESPIRATORY: Positive Pneumonia GENITOURINARY: Positive Benign Prostatic Hyperplasia MUSCULOSKELETAL: Positive Musculoskeletal Disorders ENDOCRINE: Positive Endocrine Disorders PSYCHO/SOCIAL: Positive Behavior Problems Surgical History SURGICAL: Positive Abdominal Surgery and Gastrostomy Social History SMOKING STATUS: Unknown if ever smoked SECOND HAND EXPOSURE: No SUBSTANCE USE: does not use Exam Vital Signs Temp Pulse Resp BP Pulse Ox O2 Del Method O2 Flow Rate 97.7 F 103 H 35 H 92/63 95 Mechanical Ventilation 15 06/05/24 12:00 06/05/24 13:15 06/05/24 13:15 06/05/24 13:15 06/05/24 13:15 06/05/24 04:00 06/02/24 17:50 FiO2 70 06/05/24 11:36 Narrative Exam Gen: Chronically ill-appearing elderly male. HEENT: NCAT, PERRLA, anicteric conjunctivae. Left sided gaze fixation with rotatory nystagmus. CVS: normal S1 and S2. RRR. No M/R/G. Resp: CTA B/L. No rhonchi, rales, crackles or wheezing. Abd: soft, non-tender, non-distended. BS decreased. G-tube site unremarkable. MSK: 2+ lower extremity edema. Neuro: Contant right foot myoclonus. Alert and oriented x0. Left sided gaze fixation with rotatory nystagmus. Psych: impossible to assess. Results Labs 06/05/24 18:08 06/05/24 13:45 Labs: Short CBC 06/04/24 06/05/24 Range/Units 16:07 05:07 WBC 15.0 H D 14.2 H (3.8-10.6) Thou/mm3 Hgb 8.3 L 8.0 L (13.5-16.0) g/dL Hct 24.8 L 23.6 L (41.0-53.0) % Plt Count 103 L 78 L D (140-440) Thou/mm3 BMP 06/04/24 06/04/24 06/05/24 16:07 23:34 05:07 Sodium 150 H 151 H Potassium 2.2 L* 2.8 L D 2.9 L Chloride 111 H 113 H Carbon Dioxide 22.9 21.3 BUN 43 H 52 H Creatinine 2.9 H D 3.2 H Glucose 98 122 H Calcium 6.8 L* 7.1 L 06/05/24 13:45 Sodium 150 H Potassium 3.5 D Chloride 113 H Carbon Dioxide 22.4 BUN 58 H Creatinine 3.4 H Glucose 110 H Calcium 7.1 L Liver Function 06/04/24 06/05/24 06/05/24 Range/Units 16:07 05:07 13:45 Total Bilirubin 0.4 0.9 D (0.3-1.2) mg/dL AST 157 H 209 H (0-34) U/L ALT 55 H 78 H (10-49) U/L Alkaline Phosphatase 101 D 157 H D (46-116) U/L Albumin 2.7 L 2.4 L 3.2 L D (3.4-4.8) gm/dL ABG Interpretation ABG results: 05/31/24 05/31/24 05/31/24 09:33 14:33 16:21 ABG pH 7.25 L 7.18 L* 7.30 L D ABG pCO2 68 H 78 H* D 57 H D ABG pO2 88 124 H D 69 L D ABG HCO3 30 H 29 H 28 H ABG O2 Saturation 96 99 H 94 ABG Base Excess 2 -1 1 VBG pH VBG pCO2 VBG pO2 VBG Base Excess 06/01/24 06/02/24 06/04/24 07:51 18:15 16:07 ABG pH 7.49 H D 7.47 H ABG pCO2 37 D 44 ABG pO2 49 L* D 48 L* ABG HCO3 28 H 32 H ABG O2 Saturation 89 L 86 L ABG Base Excess 5 H 7 H VBG pH 7.45 VBG pCO2 31 L VBG pO2 64 H VBG Base Excess -2 Quality Measures Quality Measures VTE prophylaxis Advance care planning discussed with:: other Medications Home Medications and Allergies Home Medications ?Medication ?Instructions ?Recorded ?Confirmed ?Type acetaminophen 325 mg/10.15 mL oral 650 mg feeding tube Q6HR PRN Fever 05/30/24 05/30/24 History solution >101 amoxicillin 400 mg-potassium 5 ml feeding tube BID 05/30/24 05/30/24 History clavulanate 57 mg/5 mL oral suspension aspirin 81 mg tablet,delayed 81 mg feeding tube QDAY 05/30/24 05/30/24 History release calcium 500 mg (as 1 tab feeding tube QDAY 05/30/24 05/30/24 History carbonate)-vitamin D3 5 mcg (200 unit) tablet ipratropium 0.5 mg-albuterol 3 mg 3 ml inhalation Q6H PRN Shortness 05/30/24 05/30/24 History (2.5 mg base)/3 mL nebulization Of Breath Or Wheezing soln magnesium hydroxide 400 mg/5 mL 30 ml feeding tube Q72H PRN 05/30/24 05/30/24 History oral suspension (Milk of Magnesia) Constipation polyethylene glycol 3350 17 gram 17 g feeding tube QDAY PRN 05/30/24 05/30/24 History oral powder packet (Miralax) Constipation quetiapine 25 mg tablet 100 mg feeding tube BID 05/30/24 05/30/24 History sennosides 8.6 mg tablet (senna) 8.6 mg feeding tube BID 05/30/24 05/30/24 History Allergies Allergy/AdvReac Type Severity Reaction Status Date / Time No Known Allergies Allergy Verified 02/05/20 14:36 Visit Medications Acetaminophen (Acetaminophen Lindsey 325 Mg/10 Ml Udc) 650 mg GT Q6HR PRN PRN Reason: Pain Or Fever > 100.4 Stop: 07/04/24 15:08 Last Admin: 06/04/24 16:40 Dose: 650 mg Albuterol/Ipratropium (Albuterol/Ipratropium (Duoneb) Rt Lindsey 3 Ml Nebu) 3 ml INH Q2HR PRN PRN Reason: SHORTNESS OF BREATH OR WHEEZE Stop: 07/04/24 15:32 Calcium Acetate (Calcium Acetate 667 Mg Tablet) 667 mg PO TIDWM XOCHITL Stop: 07/04/24 18:44 Last Admin: 06/05/24 13:47 Dose: 667 mg Citric Acid/Sodium Citrate (Citric Acid/Sodium Citr 15 Ml Udc (Bicitra)) 30 ml GT DAILY XOCHITL Stop: 07/05/24 08:59 Last Admin: 06/05/24 08:58 Dose: 30 ml Dextrose (Dextrose 50%-Water Inj 50 Ml Syringe) 25 ml IV Q15MIN PRN PRN Reason: BG 50-70 responsive npo pt Stop: 07/04/24 15:31 Dextrose (Dextrose 50%-Water Inj 50 Ml Syringe) 50 ml IV Q15MIN PRN PRN Reason: BG <50 OR BG <70 & pt unresponsive Stop: 07/04/24 15:31 Heparin Sodium (Porcine) (Heparin Sod Inj 5000 Unit/Ml Vial) 5,000 unit SC Q8HR XOCHITL Stop: 06/18/24 21:59 Last Admin: 06/05/24 06:09 Dose: Not Given Norepinephrine/Dextrose (Levophed In D5w 8mg/250ml) 8 mg in 250 mls @ 6.572 mls/hr IV .Q24H PRN; Protocol PRN Reason: PER PROTOCOL Stop: 07/03/24 11:36 Last Titration: 06/05/24 10:16 Dose: 0.11 mcg/kg/min, 14.458 mls/hr Levofloxacin/Dextrose (Levaquin Ivpb) 500 mg in 100 mls @ 100 mls/hr IV Q48H [facility] Stop: 06/13/24 18:29 Insulin Human Regular (Insulin Hum Regular 1 Unit/0.01 Ml (Per Unit)) 0 unit SC Q6HR [facility]; Protocol Stop: 07/04/24 17:59 Last Admin: 06/05/24 13:48 Dose: Not Given Lactulose (Lactulose Syrup 20 Gm/30 Ml Udc) 20 gm PO QDAY XOCHITL; Protocol Stop: 07/06/24 08:59 Pantoprazole Sodium (Pantoprazole Inj 40 Mg Vial) 40 mg IVP QDAY [facility] Stop: 07/04/24 15:29 Last Admin: 06/05/24 08:58 Dose: 40 mg Pharmacy Consult (Pharmacy Renal Dose Adjustment 1 Ea) 1 each XX PRN PRN PRN Reason: CONSULT Stop: 07/04/24 18:23 Discontinued Medications Acetaminophen (Acetaminophen 120 Mg Supp) 120 mg KS Q6HR PRN; Protocol PRN Reason: PAIN OR FEVER > 101 Stop: 06/30/24 10:18 Last Admin: 05/31/24 10:49 Dose: 120 mg Acetaminophen (Acetaminophen 325 Mg Tablet) 650 mg PO Q6HR PRN PRN Reason: FEVER >101 Stop: 07/01/24 10:02 Acetaminophen (Acetaminophen Lindsey 325 Mg/10 Ml Udc) 650 mg GT Q6HR PRN PRN Reason: FEVER >101 Stop: 07/01/24 10:02 Last Admin: 06/01/24 10:46 Dose: 650 mg Acetylcysteine (Acetylcysteine Rt Lindsey 10% 4 Ml Nebu) 3 ml INH Q4HRRT XOCHITL Stop: 07/02/24 10:59 Last Admin: 06/03/24 14:23 Dose: Not Given Amiodarone HCl (Amiodarone Hcl 200 Mg Tablet) 200 mg PO BID XOCHITL Stop: 07/03/24 14:59 Last Admin: 06/03/24 21:53 Dose: 200 mg Bisacodyl (Bisacodyl 10 Mg Supp) 10 mg KS Q8H XOCHITL; Protocol Stop: 06/30/24 16:29 Last Admin: 06/02/24 07:56 Dose: Not Given Bisacodyl (Bisacodyl 10 Mg Supp) 10 mg KS QDAY XOCHITL; Protocol Stop: 07/02/24 08:59 Last Admin: 06/02/24 08:16 Dose: Not Given Dextrose (Dextrose 50%-Water Inj 50 Ml Syringe) 25 ml IV Q15MIN PRN PRN Reason: BG 50-70 responsive npo pt Stop: 07/02/24 12:14 Last Admin: 06/02/24 23:41 Dose: 25 ml Dextrose (Dextrose 50%-Water Inj 50 Ml Syringe) 50 ml IV Q15MIN PRN PRN Reason: BG <50 OR BG <70 & pt unresponsive Stop: 07/02/24 12:14 Enoxaparin Sodium (Enoxaparin Sod Inj 40 Mg/0.4 Ml Syringe) 40 mg SC QDAY XO[facility]ITL Stop: 06/15/24 08:59 Last Admin: 06/03/24 08:46 Dose: 40 mg Glycerin (Glycerin, Adult 1 Ea Supp) 1 each KS X1 ONE Stop: 05/29/24 15:30 Last Admin: 05/29/24 23:24 Dose: 1 each Potassium Chloride (Kcl Ivpb) 10 meq in 100 mls @ 100 mls/hr IV X1 ONE Stop: 05/29/24 07:18 Last Infusion: 05/29/24 07:23 Dose: Infused Sodium Chloride (Ns) 1,000 mls @ 999 mls/hr IV .Q1H1M ONE Stop: 05/29/24 07:56 Last Infusion: 05/29/24 08:30 Dose: Infused Cefepime HCl 2 gm/ Sodium (Chloride) 50 mls @ 100 mls/hr IV X1 ONE Stop: 05/29/24 07:25 Last Infusion: 05/29/24 07:46 Dose: Infused Acetaminophen (Ofirmev Inj) 1,000 mg in 100 mls @ 250 mls/hr IV NOW ONE Stop: 05/29/24 07:19 Last Infusion: 05/29/24 07:51 Dose: Infused Vancomycin HCl 2,000 mg/ (Sodium Chloride) 500 mls @ 150 mls/hr IV X1 ONE Stop: 05/29/24 10:16 Last Infusion: 05/29/24 13:15 Dose: Infused Sodium Chloride (Ns) 1,000 mls @ 75 mls/hr IV .[id number] XOCHITL Stop: 05/29/24 21:55 Last Admin: 05/29/24 09:24 Dose: 75 mls/hr Piperacillin/Tazobactam/Dextrose (Zosyn) 50 mls @ 12.5 mls/hr IV Q8HR XOCHITL; Protocol Stop: 06/05/24 13:59 Last Infusion: 06/03/24 08:30 Dose: Infused Piperacillin/Tazobactam/Dextrose (Zosyn) 50 mls @ 100 mls/hr IV X1 ONE Stop: 05/29/24 09:14 Last Infusion: 05/29/24 09:52 Dose: Infused Potassium Chloride (Kcl Ivpb) 10 meq in 100 mls @ 100 mls/hr IV Q1H XOCHITL Stop: 05/29/24 10:37 Last Infusion: 05/29/24 11:38 Dose: Infused Sodium Chloride (Ns) 1,000 mls @ 75 mls/hr IV .[id number] ONE Stop: 05/30/24 06:08 Last Infusion: 05/30/24 19:25 Dose: Infused Potassium Chloride (Kcl Ivpb) 10 meq in 100 mls @ 100 mls/hr IV Q1H [facility] Stop: 05/30/24 12:15 Last Admin: 05/30/24 18:17 Dose: Not Given Potassium Chloride 30 meq/ (Sodium Chloride) 1,015 mls @ 75 mls/hr IV .[id number] XOCHITL; Protocol Stop: 06/04/24 09:59 Last Admin: 05/31/24 19:46 Dose: Not Given Potassium Chloride (Kcl Ivpb) 10 meq in 100 mls @ 100 mls/hr IV Q1H XO[facility] Stop: 05/31/24 12:13 Last Admin: 05/31/24 11:39 Dose: 100 mls/hr Vancomycin/Sodium Chloride (Vancomycin/Ns 750 Mg Ivpb) 750 mg in 150 mls @ 120 mls/hr IV BID@1000,2200 XOCHITL; Protocol Stop: 06/07/24 12:14 Last Infusion: 06/02/24 09:30 Dose: Infused Sodium Chloride (Ns) 1,000 mls @ 999 mls/hr IV .Q1H1M ONE Stop: 05/31/24 13:08 Last Admin: 05/31/24 19:46 Dose: Not Given Sodium Chloride (Ns) 1,000 mls @ 999 mls/hr IV .Q1H1M ONE Stop: 05/31/24 13:08 Last Admin: 05/31/24 19:46 Dose: Not Given Lactated Ringer's (Lactated Ringers) 2,000 mls @ 999 mls/hr IV .Q2H1M ONE Stop: 05/31/24 14:56 Last Admin: 05/31/24 13:23 Dose: 999 mls/hr Acetaminophen (Ofirmev Inj) 1,000 mg in 100 mls @ 250 mls/hr IV Q6HR XOCHITL Stop: 06/01/24 06:23 Acetaminophen (Ofirmev Inj) 1,000 mg in 100 mls @ 250 mls/hr IV X1 ONE Stop: 05/31/24 17:08 Last Admin: 05/31/24 16:53 Dose: 250 mls/hr Potassium Phosphate (Pot Phos 15 Mmol In Ns 250 Ml) 15 mmol in 250 mls @ 62.5 mls/hr IV Q4H [facility] Stop: 06/01/24 15:09 Last Infusion: 06/02/24 07:56 Dose: Infused Potassium Chloride (Kcl Ivpb) 10 meq in 100 mls @ 100 mls/hr IV Q1H XOCHITL Stop: 06/01/24 12:53 Last Infusion: 06/02/24 07:56 Dose: Infused Magnesium Sulfate (Magnesium Sulfate Ivpb) 4 gm in 50 mls @ 12.5 mls/hr IV X1 ONE Stop: 06/02/24 06:20 Last Infusion: 06/02/24 07:55 Dose: Infused Potassium Chloride (Kcl Ivpb) 10 meq in 100 mls @ 100 mls/hr IV Q1H [facility] Stop: 06/02/24 07:56 Last Infusion: 06/03/24 08:29 Dose: Infused Potassium Phosphate (Pot Phos 15 Mmol In Ns 250 Ml) 15 mmol in 250 mls @ 62.5 mls/hr IV X1 ONE Stop: 06/02/24 08:14 Last Admin: 06/02/24 04:16 Dose: 62.5 mls/hr Ampicillin Sodium/Sulbactam (Sodium 3 gm/ Sodium Chloride) 100 mls @ 200 mls/hr IV Q6HR [facility] Stop: 06/09/24 11:59 Last Admin: 06/03/24 05:18 Dose: 200 mls/hr Potassium Phosphate (Pot Phos 15 Mmol In Ns 250 Ml) 15 mmol in 250 mls @ 62.5 mls/hr IV Q4H [facility] Stop: 06/02/24 17:48 Last Infusion: 06/03/24 08:30 Dose: Infused Amiodarone HCl/Dextrose (Nexterone Ivpb) 150 mg in 100 mls @ 600 mls/hr IV .Q10M ONE Stop: 06/02/24 12:24 Last Infusion: 06/03/24 08:30 Dose: Infused Amiodarone HCl/Dextrose (Nexterone Ivpb) 360 mg in 200 mls @ 33.333 mls/hr IV .Q6H ONE Stop: 06/02/24 18:24 Last Infusion: 06/03/24 08:30 Dose: Infused Amiodarone HCl/Dextrose (Nexterone Ivpb) 360 mg in 200 mls @ 16.667 mls/hr IV .Q12H XOCHITL Stop: 06/03/24 18:24 Last Admin: 06/02/24 19:48 Dose: Not Given Potassium Acetate 40 meq/ (Dextrose) 520 mls @ 130 mls/hr IV X1 ONE Stop: 06/02/24 18:44 Last Infusion: 06/03/24 08:29 Dose: Infused Sodium Chloride (Ns) 1,000 mls @ 999 mls/hr IV .Q1H1M ONE Stop: 06/02/24 18:58 Last Infusion: 06/03/24 09:17 Dose: Infused Amiodarone HCl 200 mg/ (Dextrose) 104 mls @ 600 mls/hr IV X1 ONE Stop: 06/02/24 18:34 Last Admin: 06/02/24 19:47 Dose: Not Given Amiodarone HCl/Dextrose (Nexterone Ivpb) 360 mg in 200 mls @ 33.333 mls/hr IV .Q6H XO[facility]ITL Stop: 06/03/24 07:32 Last Infusion: 06/03/24 08:30 Dose: Infused Potassium Chloride (Kcl Ivpb) 10 meq in 100 mls @ 100 mls/hr IV Q1H [facility] Stop: 06/03/24 01:28 Last Infusion: 06/03/24 08:29 Dose: Infused Potassium Phosphate (Pot Phos 15 Mmol In Ns 250 Ml) 15 mmol in 250 mls @ 62.5 mls/hr IV X1 ONE Stop: 06/03/24 03:39 Last Infusion: 06/03/24 08:30 Dose: Infused Potassium Phosphate (Pot Phos 15 Mmol In Ns 250 Ml) 15 mmol in 250 mls @ 62.5 mls/hr IV Q4H [facility] Stop: 06/03/24 11:01 Last Admin: 06/03/24 08:43 Dose: 62.5 mls/hr Piperacillin/Tazobactam/Dextrose (Zosyn) 50 mls @ 100 mls/hr IV Q8HR [facility] Stop: 06/10/24 10:29 Last Admin: 06/03/24 11:41 Dose: Not Given Vancomycin/Sodium Chloride (Vancomycin/Ns 1 Gm Ivpb) 200 mls @ 120 mls/hr IV QDAY@1000 [facility] Stop: 06/10/24 10:44 Last Admin: 06/03/24 11:34 Dose: 120 mls/hr Piperacillin/Tazobactam/Dextrose (Zosyn) 50 mls @ 12.5 mls/hr IV Q8HR [facility] Stop: 06/10/24 10:29 Norepinephrine Bitartrate (Levophed In Ns 16mg/250ml) 16 mg in 250 mls @ 3.286 mls/hr IV .Q24H PRN; Protocol PRN Reason: PER protocol Stop: 07/03/24 11:12 Vasopressin/Sodium Chloride (Vasostrict/Ns Ivpb) 20 unit in 100 mls @ 9 mls/hr IV .Q11H7M PRN; Protocol PRN Reason: PER PROTOCOL Stop: 07/03/24 13:54 Amiodarone HCl/Dextrose (Nexterone Ivpb) 150 mg in 100 mls @ 600 mls/hr IV .Q10M ONE Stop: 06/04/24 12:46 Last Infusion: 06/04/24 20:50 Dose: Infused Amiodarone HCl/Dextrose (Nexterone Ivpb) 360 mg in 200 mls @ 33.333 mls/hr IV .Q6H ONE Stop: 06/04/24 18:36 Last Infusion: 06/04/24 20:50 Dose: Infused Amiodarone HCl/Dextrose (Nexterone Ivpb) 360 mg in 200 mls @ 16.667 mls/hr IV .Q12H [facility] Stop: 06/05/24 12:37 Last Admin: 06/05/24 09:00 Dose: 16.667 mls/hr Piperacillin/Tazobactam/Dextrose (Zosyn) 3.375 gm in 50 mls @ 12.5 mls/hr IV Q8HR [facility]; Protocol Stop: 06/11/24 15:11 Piperacillin/Tazobactam/Dextrose (Zosyn) 3.375 gm in 50 mls @ 100 mls/hr IV X1 ONE Stop: 06/04/24 15:59 Last Infusion: 06/04/24 20:49 Dose: Infused Vancomycin/Sodium Chloride (Vancomycin/Ns 1 Gm Ivpb) 200 mls @ 120 mls/hr IV QDAY@1000 [facility]; Protocol Stop: 06/11/24 15:44 Last Infusion: 06/04/24 20:49 Dose: Infused Potassium Chloride (Kcl Ivpb) 10 meq in 100 mls @ 100 mls/hr IV Q1H [facility] Stop: 06/04/24 21:06 Last Infusion: 06/04/24 20:49 Dose: Infused Levofloxacin/Dextrose (Levaquin Ivpb) 750 mg in 150 mls @ 100 mls/hr IV X1 ONE Stop: 06/04/24 19:52 Last Infusion: 06/04/24 20:50 Dose: Infused Potassium Chloride (Kcl Ivpb) 10 meq in 100 mls @ 100 mls/hr IV Q1H [facility] Stop: 06/05/24 12:39 Last Admin: 06/05/24 13:13 Dose: Not Given Albumin Human (Albuminar-25 Ivpb) 25 gm in 100 mls @ 100 mls/hr IV QDAY [facility] Stop: 06/08/24 08:59 Albumin Human (Albuminar-25 Ivpb) 25 gm in 100 mls @ 100 mls/hr IV QDAY [facility] Stop: 06/08/24 08:59 Last Admin: 06/05/24 09:05 Dose: Not Given Albumin Human (Albuminar-25 Ivpb) 25 gm in 100 mls @ 100 mls/hr IV Q1H [facility] Stop: 06/05/24 11:14 Last Admin: 06/05/24 10:18 Dose: 100 mls/hr Insulin Human Lispro (Insulin Lispro (Admelog) 1 Unit/0.01 Ml Unit) 4 unit SC X1 ONE Stop: 05/31/24 18:06 Last Admin: 05/31/24 19:45 Dose: Not Given Ipratropium [place] (Ipratropium Rt 0.5 Mg/ 2.5 Ml Nebu) 0.5 mg INH X1 ONE Stop: 05/31/24 12:46 Last Admin: 05/31/24 13:58 Dose: 0.5 mg Lactulose (Lactulose Syrup 20 Gm/30 Ml Udc) 30 gm PO X1 ONE; Protocol Stop: 05/29/24 11:54 Last Admin: 05/29/24 13:47 Dose: Not Given Lactulose (Lactulose Syrup 20 Gm/30 Ml Udc) 30 gm GT X1 ONE; Protocol Stop: 05/29/24 11:54 Last Admin: 05/29/24 13:18 Dose: 30 gm Lactulose (Lactulose Syrup 20 Gm/30 Ml Udc) 20 gm GT BID [facility]L; Protocol Stop: 06/30/24 08:59 Last Admin: 06/03/24 08:46 Dose: Not Given Lactulose (Lactulose Syrup 20 Gm/30 Ml Udc) 20 gm PO TID XOCHITL; Protocol Stop: 07/04/24 21:59 Last Admin: 06/05/24 06:10 Dose: 20 gm Levalbuterol HCl (Levalbuterol Rt 0.63 Mg/3 Ml Nebu) 0.63 mg INH Q4HRRT [facility] Stop: 06/28/24 10:59 Last Admin: 06/03/24 11:14 Dose: 0.63 mg Lorazepam (Lorazepam 2 Mg/Ml Vial) 2 mg IVP X1 ONE Stop: 06/05/24 06:27 Last Admin: 06/05/24 06:33 Dose: 2 mg Metoclopramide HCl (Metoclopramide Inj 5 Mg/Ml Vial 2 Ml) 10 mg IVP Q6HR [facility]; Protocol Stop: 06/28/24 14:59 Last Admin: 06/02/24 12:16 Dose: 10 mg Midazolam HCl (Midazolam Inj 1 Mg/Ml Vial 2 Ml) 2 mg IV X1 ONE Stop: 06/02/24 19:02 Last Admin: 06/02/24 19:48 Dose: Not Given Morphine Sulfate (Morphine Sulf Inj 10 Mg/Ml Vial) 2 mg IVP X1 ONE Stop: 06/02/24 18:50 Last Admin: 06/02/24 19:00 Dose: 2 mg Ondansetron HCl (Ondansetron Inj 2 Mg/Ml Inj 2 Ml) 4 mg IV Q6H PRN; Protocol PRN Reason: NAUSEA OR VOMITING Stop: 06/28/24 08:21 Ondansetron HCl (Ondansetron Inj 2 Mg/Ml Inj 2 Ml) 4 mg IV Q6HR PRN; Protocol PRN Reason: NAUSEA OR VOMITING Stop: 07/02/24 13:28 Pantoprazole Sodium (Pantoprazole Inj 40 Mg Vial) 40 mg IVP QDAY [facility] Stop: 06/28/24 08:59 Last Admin: 06/03/24 08:46 Dose: 40 mg Pharmacy Consult (Vancomycin Pharmacy To Dose 1 Each Each) 1 each IV QDAY PRN PRN Reason: PROTOCOL Stop: 06/30/24 11:59 Pharmacy Consult (Vancomycin Pharmacy To Dose 1 Each Each) 1 each IV QDAY PRN PRN Reason: RX Stop: 07/03/24 10:29 Pharmacy Consult (Pharmacy Renal Dose Adjustment 1 Ea) 1 each XX PRN PRN PRN Reason: CONSULT Stop: 07/04/24 15:22 Pharmacy Consult (Vancomycin Pharmacy To Dose 1 Each Each) 1 each IV QDAY PRN PRN Reason: PROTOCOL Stop: 07/04/24 15:44 Polyethylene Glycol/Electrolytes ([place]/Nahco3/Ed/Peg (Golytely) 4,000 Ml Btl) 4,000 ml GT X1 ONE Stop: 06/01/24 15:36 Last Admin: 06/01/24 15:46 Dose: 4,000 ml Potassium Chloride (Potassium Chloride 10% 20 Meq/15 Ml Udc) 40 meq GT X1 ONE Stop: 05/31/24 08:16 Last Admin: 05/31/24 08:31 Dose: 40 meq Potassium Chloride (Potassium Chloride 10% 20 Meq/15 Ml Udc) 40 meq GT X1 ONE Stop: 06/01/24 10:55 Last Admin: 06/01/24 13:43 Dose: 40 meq Potassium Chloride (Potassium Chloride 10% 20 Meq/15 Ml Udc) 20 meq GT X1 ONE Stop: 06/01/24 14:01 Last Admin: 06/01/24 17:02 Dose: 20 meq Potassium Chloride (Potassium Chloride 10% 20 Meq/15 Ml Udc) 40 meq GT X1 ONE Stop: 06/02/24 21:28 Last Admin: 06/02/24 21:56 Dose: 40 meq Potassium Chloride (Potassium Chloride 10% 20 Meq/15 Ml Udc) 60 meq GT X1 ONE Stop: 06/03/24 02:54 Last Admin: 06/03/24 03:50 Dose: 60 meq Potassium Chloride (Potassium Chloride 10% 20 Meq/15 Ml Udc) 40 meq GT X1 ONE Stop: 06/03/24 07:43 Last Admin: 06/03/24 08:46 Dose: 40 meq Potassium Chloride (Potassium Chloride 10% 20 Meq/15 Ml Udc) 20 meq GT X1 ONE Stop: 06/03/24 10:01 Last Admin: 06/03/24 11:30 Dose: 20 meq Potassium Chloride (Potassium Chloride 10% 20 Meq/15 Ml Udc) 40 meq GT X1 ONE Stop: 06/04/24 17:05 Last Admin: 06/04/24 17:30 Dose: 40 meq Potassium Chloride (Potassium Chloride 10% 20 Meq/15 Ml Udc) 20 meq GT X1 ONE Stop: 06/04/24 17:05 Last Admin: 06/04/24 17:31 Dose: 20 meq Potassium Chloride (Potassium Chloride 10% 20 Meq/15 Ml Udc) 40 meq GT X1 ONE Stop: 06/05/24 00:09 Last Admin: 06/05/24 00:37 Dose: 40 meq Potassium Chloride (Potassium Chloride 10% 20 Meq/15 Ml Udc) 40 meq GT X1 ONE Stop: 06/05/24 08:48 Last Admin: 06/05/24 08:58 Dose: 40 meq Sodium Chloride (Sodium Chloride Rt 10% 15 Ml Nebu) 5 ml INH X1 ONE Stop: 05/31/24 12:50 Last Admin: 05/31/24 16:50 Dose: Not Given Assessment & Plan Plan The patient is a 73-year-old male with previous medical history of CVA, severe cognitive deficit, chronic PEG tube and tracheostomy placement, hyperlipidemia, diabetes mellitus, recurrent UTIs, depression, anxiety, upper extremity bilateral DVT who is a subacute facility resident. He was brought to the hospital due to constipation and abdominal distention for 5 days. He also developed pneumonia and acute on chronic respiratory failure. His labs showed hypokalemia and hypernatremia. His labs throughout admissionshowed uptrending WBC, hypernatremia, persistent hypokalemia and rapidly declining kidney functions. [place] Dr. Reed was consulted due to ZACH and electrolyte abnormalities treaent and management. #ZACH - ATN #Hypokalemia #Hypernatremia Most likely due to ATN in the setting of septic shock. At the moment, due to hemodynamic instability patient is not a candidate for dialysis. Plan: ? Potassium chloride 40 mEq p.o. once ? Potassium chloride 40 mEq IV once ? Bicitra 30 mL daily ? Albumin 25 g x 2 once ? Free water flushes at 100 mL/h ? Monitor daily CMP ? Avoid nephrotoxic agents ? Renally dose medications #Acute encephalopathy #CVA with residual deficits #New onset of A-fib #Shock #Acute on chronic hypoxic respiratory failure #ARDS #Severe bilateral pneumonia #Large bowel obstruction improving #Hypokalemia #Leukocytosis #Normocytic anemia #Bacterial pneumonia #Muscle atrophy Plan of care discussed with attending Dr. Reed. Cuca Kaplan MD, PGY 1. Attending Provider Attestation/Addendum patient seen and examined with resident physician Dr. Thurman. Note reviewed, agree with findings and recommendations. Patient currently seen in ICU. Currently on ventilator. Patient was on comfort care and family decided on full CODE STATUS. Requesting dialysis if needed. No urine output. Azotemia worsened. Electrolyte seems to be abnormal. Decided to proceed with dialysis. Vas-Cath placed by heat reader. Blood pressure still remains low. Family wants to try. On pressors. Hemodialysis for 2 hours, blood flow 200, 3K, ultrafiltration 0 L, Epogen 6000, no heparin ordered. However few minutes into dialysis patient clotted the dialyzer due to catheter related problems. Had to stop dialysis and blood return. Only was able to return half of the blood. Stat CBC ordered. Had to hold dialysis today. Will reeval again tomorrow. Overnight will place tPA in the Vas-Cath. Plan of care discussed with Dr. Avila. Thank you Dr. Avila for allowing me to participate in the care of Mr. Muniz Plan of care discussed with the dialysis nurse. Please see dialysis flowsheet for further details.
--- NOTE | 2024-06-05 15:28 | PC.SS ---
Update: Patient is Trach/PEG. Plan is attempt dialysis session tomorrow for patient. Patient receiving pressors.
--- NOTE | 2024-06-05 17:38 | ESPR_ITS ---
<Statement entered by Sai Avila MD - 06/06/24 13:50> TOTAL CC TIME: 45 MIN I saw and evaluated the patient. I reviewed the resident?s note and agree with findings and plan as documented in the resident?s note. Upon my evaluation, this patient had a high probability of imminent or life- threatening deterioration due to acute hypoxic respiratory failure, ATN, septic shock which required my direct attention, intervention, and personal management. This time is exclusive of time spent on procedures, which are documented separately if performed. Some improvement in chest x-ray. Continue antibiotics and follow-up culture results. Progressive worsening renal dysfunction and the patient will likely require hemodialysis although he was hemodynamically unstable and I spoke with Dr. Farfan. She did not feel comfortable performing hemodialysis and I agree. 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 Patient recently came to the ED on 05/24/2024 with similar complaints and received enema following which patient had a bowel movement and transferred back to the facility. Later patient was still found to have constipation for which Dr. Durant was consulted and patient received different bowel regimens and GoLytely with no much effect on constipation. As the patient is having progressive severe abdominal distention with constipation despite bowel regimens and GoLytely he was brought to the hospital today. No history of fever, vomiting. Dr. Durant was consulted and he tried to manually disimpact the stools but unsuccessful. Later Dr Cramer was consulted. ED Course: -Initial vitals were blood pressure 140/84 mmHg, pulse rate 101 bpm, respiratory rate 22/min, SpO2 98% on mechanical ventilator on AC/VC mode. -Labs significant for WBC 9.1, Hb 11.8, platelets 241, sodium 138, potassium 3.3, chloride 90, bicarb 37.1, lactate 1.2, AST 41, ALT 23, procalcitonin 0.07 -CT abdomen/pelvis showed markedly distended large bowel with rectal thickening, massive stool impaction in the rectosigmoid colon and right inguinal hernia with urinary bladder as content -In the ED, patient was given potassium, cefepime. -Patient was admitted for Past medical history: CVA, hypertension, hyperlipidemia, diabetes mellitus, chronic PEG, COPD Past surgical history: PEG tube placement Social history: Unknown Patient developed worsening labs, respiratory distress with hypoxia, fever, and hypotension on the floors prompting rapid response. At bedside patient had MAP 41, with weak and slow peripheral pulse. Patient had clear mottling of feet, knees, hands. Chest x-ray showed worsening infiltrates of both lungs, especially prominent in left lung. Patient upgraded to ICU for worsening acute hypoxic respiratory failure, hypotension with weak peripheral pulses. Patient did not require pressors, received 2 L bolus lactated Ringer's with significant improvement in blood pressure. Peripheral pulse improved as well, heart rate WNL. Patient had multiple bowel movements with stabilizing of respiratory function, downgraded to telemetry. ICU consulted due to afib with RVR, worsening hypotension, requiring pressers to maintain MAP >65, and worsening respiratory distress requiring bagging for 1 hour. GOC discussion was held this morning with patient's and son. [employer] Field Supervisor, hospitalist team, and RN were at bedside. Interpretive services were utilized. and son were updated with the critical nature of patient's condition, including shock, severe respiratory distress with hypoxia while on 100% FiO2, severe hypokalemia, hypernatremia, atrial fibrillation with rapid ventricular response, organ dysfunction/lactic acidosis (worsening ZACH without urine output, likely secondary to shock) in addition to chronic conditions (h/o CVA leaving patient bedbound and fully dependent, chronic respiratory failure, chronic PEG). Family understood the poor prognosis for the patient, and requested to speak with patient's other children. Later, family made a decision and would like to initiate comfort measures once the youngest son is at bedside, likely manager latin on 06/04. Plan is to discontinue all medications and lab draws at this time, other than levophed via peripheral IV, until patient's son arrives on 06/04. Once son arrives, hospitalist team will discontinue levophed and start comfort measures. Family is aware that PIV may fail, and patient may possibly pass overnight. 06/04/2024: Rapid response was called when patient developed afib with RVR. Hospitalist team initiated amiodarone drip for patient. Family re-initiated goals of care discussion, deciding to change patient to be limited code (no compressions) and otherwise reciev full treatment, including line placements and dialysis if necessary. Patient was then transferred to ICU for intensive management. Hospitalist team resumed patients previous meds. To facilitate lab draws and dialysis if necessary, a tri-flow central line was placed. After US exam of the neck, it was determined that even with high IJ placement there was not enough room around tracheostomy strap to maintain sterility, and a femoral line was placed without incident. Blood cultures, labs, CXR ordered. CXR showed severe diffuse pneumonia. Patient receiving broad spectrum antibiotics. Patient on pressors. 06/05/2024: Patient seen and examined at bedside. Neurologic status unchanged. Plan for dialysis today, per Dr. Reed patient was too unstable for dialysis given poor hemodynamics and respiratory status. Family was updated on patients condition and explained risks of dialysis, elected to move forward with dialysis. Dialysis planned for this evening without fluid removal. Patient continues to require pressers. Per night team, patient developed increased vertical nystagmus and belly movements, resolved with Ativan 2mg x1. Exam Vital Signs Temp Pulse Resp BP Pulse Ox O2 Del Method O2 Flow Rate 98.6 F 106 H 28 H 115/57 L 90 L Mechanical Ventilation 15 06/05/24 16:42 06/05/24 17:30 06/05/24 16:42 06/05/24 17:30 06/05/24 16:42 06/05/24 04:00 06/02/24 17:50 FiO2 70 06/05/24 16:42 Narrative Exam PE: Gen: Alert, poorly responsive. Tracheostomy. HEENT: NCAT, anicteric conjunctivae. Dry mucous membranes. Vertical nystagmus. CVS: No M/R/G. Afib with tachycardia. Resp: Coarse lung sounds. Rhonchi and wheezing all lung ansari. Abd: Abdomen distended, soft. PEG tube. MSK: Good ROM in BUE & BLE. Bilateral lower and upper extremity edema. Edematous scrotum. Neuro: CN II-XII grossly intact. Baseline nonverbal. Sometimes tracks sounds. Objective Labs 06/05/24 05:07 06/05/24 13:45 Labs: Laboratory Results - last 24 hr 06/04/24 06/04/24 06/05/24 19:42 23:34 05:07 WBC 14.2 H RBC 2.75 L Hgb 8.0 L Hct 23.6 L MCV 86 MCH 29.1 MCHC 33.9 RDW Std Deviation 50.7 H Plt Count 78 L D Neut % (Auto) 94 H Lymph % (Auto) 3 L [place] % (Auto) 3 Eos % (Auto) 0 Baso % (Auto) 0 Neut # (Auto) 13.3 H Lymph # (Auto) 0.4 L [place] # (Auto) 0.4 Eos # (Auto) 0.0 Baso # (Auto) 0.0 Immature Gran # (Auto) 0.07 H Absolute Nucleated RBC 0.02 H Immature Gran % 1 H Nucleated RBC % 0 Sodium 151 H Potassium 2.8 L D 2.9 L Chloride 113 H Carbon Dioxide 21.3 Anion Gap 17 H BUN 52 H Creatinine 3.2 H Estim Creat Clear Calc 17.2 L eGFR 20 L BUN/Creatinine Ratio 16 Glucose 122 H Calculated Osmolality 314 H Lactic Acid 3.4 H Calcium 7.1 L Corrected Calcium 8.4 L Phosphorus Total Bilirubin 0.9 D AST 209 H ALT 78 H Alkaline Phosphatase 157 H D Total Protein 4.7 L Albumin 2.4 L Globulin 2.3 Albumin/Globulin Ratio 1.0 L Hepatitis A IgM Ab Non Reactive Hep Bs Antigen Non Reactive Hep Bs Antibody NonReact(Not Immune) L Hep B Core IgM Ab Non Reactive Hepatitis C Antibody Non Reactive Misc Test Result Platelets confirmed 06/05/24 13:45 WBC RBC Hgb Hct MCV MCH MCHC RDW Std Deviation Plt Count Neut % (Auto) Lymph % (Auto) [place] % (Auto) Eos % (Auto) Baso % (Auto) Neut # (Auto) Lymph # (Auto) [place] # (Auto) Eos # (Auto) Baso # (Auto) Immature Gran # (Auto) Absolute Nucleated RBC Immature Gran % Nucleated RBC % Sodium 150 H Potassium 3.5 D Chloride 113 H Carbon Dioxide 22.4 Anion Gap 15 BUN 58 H Creatinine 3.4 H Estim Creat Clear Calc 16.2 L eGFR 18 L BUN/Creatinine Ratio 17 Glucose 110 H Calculated Osmolality 315 H Lactic Acid Calcium 7.1 L Corrected Calcium 7.7 L Phosphorus 5.3 H Total Bilirubin AST ALT Alkaline Phosphatase Total Protein Albumin 3.2 L D Globulin Albumin/Globulin Ratio Hepatitis A IgM Ab Hep Bs Antigen Hep Bs Antibody Hep B Core IgM Ab Hepatitis C Antibody Misc Test Result ABG Interpretation ABG results: 05/31/24 05/31/24 05/31/24 09:33 14:33 16:21 ABG pH 7.25 L 7.18 L* 7.30 L D ABG pCO2 68 H 78 H* D 57 H D ABG pO2 88 124 H D 69 L D ABG HCO3 30 H 29 H 28 H ABG O2 Saturation 96 99 H 94 ABG Base Excess 2 -1 1 VBG pH VBG pCO2 VBG pO2 VBG Base Excess 06/01/24 06/02/24 06/04/24 07:51 18:15 16:07 ABG pH 7.49 H D 7.47 H ABG pCO2 37 D 44 ABG pO2 49 L* D 48 L* ABG HCO3 28 H 32 H ABG O2 Saturation 89 L 86 L ABG Base Excess 5 H 7 H VBG pH 7.45 VBG pCO2 31 L VBG pO2 64 H VBG Base Excess -2 Quality Measures Quality Measures VTE prophylaxis Advance care planning discussed with:: spouse Assessment & Plan Assessment Current Active Medications: Generic Name Dose Route Start Last Admin Trade Name Freq PRN Reason Stop Dose Admin Acetaminophen 650 mg 06/04/24 15:09 06/04/24 16:40 Acetaminophen Lindsey 325 Mg/10 Ml Udc GT 07/04/24 15:08 650 mg Q6HR PRN Administration Pain Or Fever > 100.4 Albuterol/Ipratropium 3 ml 06/04/24 15:33 Albuterol/Ipratropium (Duoneb) Rt Lindsey 3 Ml Nebu INH 07/04/24 15:32 Q2HR PRN SHORTNESS OF BREATH OR WHEEZE Calcium Acetate 667 mg 06/04/24 18:45 06/05/24 13:47 Calcium Acetate 667 Mg Tablet PO 07/04/24 18:44 667 mg TIDWM XOCHITL Administration Citric Acid/Sodium Citrate 30 ml 06/05/24 09:00 06/05/24 08:58 Citric Acid/Sodium Citr 15 Ml Udc (Bicitra) GT 07/05/24 08:59 30 ml DAILY XOCHITL Administration Dextrose 25 ml 06/04/24 15:32 Dextrose 50%-Water Inj 50 Ml Syringe IV 07/04/24 15:31 Q15MIN PRN BG 50-70 responsive npo pt Dextrose 50 ml 06/04/24 15:32 Dextrose 50%-Water Inj 50 Ml Syringe IV 07/04/24 15:31 Q15MIN PRN BG <50 OR BG <70 & pt unresponsive Heparin Sodium (Porcine) 5,000 unit 06/04/24 22:00 06/05/24 15:55 Heparin Sod Inj 5000 Unit/Ml Vial SC 06/18/24 21:59 Not Given Q8HR XOCHITL Heparin Sodium (Porcine) 2,200 unit 06/05/24 17:03 Heparin Sod Inj 1000 Unit/Ml Vial 10 Ml INDWELLCAT 06/19/24 17:02 PRN PRN DIALYSIS Norepinephrine/Dextrose 8 mg in 250 mls @ 6.572 mls/hr 06/03/24 11:37 06/05/24 15:00 Levophed In D5w 8mg/250ml IV 07/03/24 11:36 0.11 mcg/kg/min .Q24H PRN 14.458 mls/hr PER PROTOCOL Titration Protocol 0.05 MCG/KG/MIN Levofloxacin/Dextrose 500 mg in 100 mls @ 100 mls/hr 06/06/24 18:30 Levaquin Ivpb IV 06/13/24 18:29 Q48H XOCHITL Albumin Human 25 gm in 100 mls @ 100 mls/min 06/05/24 17:05 Albuminar-25 Ivpb IV PRN PRN DIALYSIS Insulin Human Regular 0 unit 06/04/24 18:00 06/05/24 13:48 Insulin Hum Regular 1 Unit/0.01 Ml (Per Unit) SC 07/04/24 17:59 Not Given Q6HR [facility] Protocol Lactulose 20 gm 06/06/24 09:00 Lactulose Syrup 20 Gm/30 Ml Udc PO 07/06/24 08:59 QDAY [facility] Protocol Pantoprazole Sodium 40 mg 06/04/24 15:30 06/05/24 08:58 Pantoprazole Inj 40 Mg Vial IVP 07/04/24 15:29 40 mg QDAY XOCHITL Administration Pharmacy Consult 1 each 06/04/24 18:24 Pharmacy Renal Dose Adjustment 1 Ea XX 07/04/24 18:23 PRN PRN CONSULT Plan 73-year-old male with 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 Neuro: #Acute encephalopathy #CVA with residual deficits Metabolic encephalopathy due to severe constipation, hypoxia, metabolic disturbances. Patient is nonverbal at baseline, per family at bedside he is normally somewhat interactive. Currently patient is responsive only to pain, opens eyes, does not track sounds. -Treat underlying conditions -Monitor Cardio: #Septic shock Patient developed severe hypotension causing rapid response to be called, MAP 41. Patient had notable mottling of hands, knees, feet. Patient has had fevers, leukocytosis. Patient showed significant improvement after 2 L bolus lactated Ringer's, hypotension resolved. Patient was downgraded, and per family wishes labs and medications other than levophed were discontinued. Patient's family later elected to resume treatment. Patient developed new fevers, increased leukocytosis. Procal 8.19. Repeat blood cultures drawn. Patient started on levofloxacin based on previous cultures, dosed for acute kidney injury. -Close monitoring -Levophed, titrate as needed -Levofloxacin 750 mg IV x1, followed by Levofloxacin 500 mg IV q48h (Started 06/04) -Follow-up blood cultures #Afib with RVR Patient developed afib with RVR prompting rapid response. Amio bolus given, drip completed. -amiodarone 200mg GT BID -telemonitoring Pulm: #Acute hypoxic respiratory failure #Pneumonia Patient developed worsening hypoxia despite increasing FiO2 on the floors. Chest x-ray shows significant bilateral pneumonia, more severe on the left side. Patient has significantly distended abdomen, present on lungs. ABG showed pH 7.18, pCO2 70, pO2 124. Vent settings changed to increase tidal volume and respiratory rate, repeat ABG showed pH 7.3, pCO2 57, pO2 69. Patient continues to have high FiO2 requirements to maintain saturation. -Maintain vent settings, wean down FiO2 as tolerated -Duoneb as needed -Antibiotics as above GI: #PEG tube Patient has chronic PEG tube. Feeds have been held due to large bowel obstruction, now resolved. -Consider resuming tube feeds. Renal: #Hypokalemia Patient has had severely low potassium, down to 2.2. Patient was given multiple doses of potassium chloride, potassium improved to 3.5. After family requested treatment, repeat labs were drawn, potassium 2.2. 60mEq GT and 10 mEq IV ordered. -Monitor -Replete as needed Endo: #DM Patient history -ISS Heme: #Leukocytosis Likely due to infection -Monitor #Normocytic anemia Patient has chronic normocytic anemia, slightly worse than normal currently. No signs of bleeding. -Monitor ID: #Pneumonia Patient has severe bilateral pneumonia. Procal 8.19. Fevers. Patient received Vancomycin and Zosyn previously. Will adjust antibiotic dosage for reduced creatinine clearance -Levofloxacin 750 mg IV x1, followed by Levofloxacin 500 mg IV q48h (Started 06/04) -Follow up blood cultures -Tylenol as needed for fevers Skin/MSK: #No active issues ICU Health maintenance: Mechanical ventilation: Yes Sedation: No Diet: None DVT ppx: Heparin GI ppx: Protonix Godinez: No IV lines: Peripheral IVs Central line: Femoral Arterial line: No Code status: Limited Code: No compressions Plan of care discussed with attending Dr. Avila. Jayjay Malagon MD PGY-1
--- NOTE | 2024-06-05 17:54 | PC.NURSE ---
Tx terminated early d/t non functioning catheter despite all interventions. During tx upon attempting a power flush, both ports remained tight and sluggish. D/t cont'd. increased COMPOSITION TEACHER tx was paused and blood in arterial lines returned, blood in venous line clotted and was not able to be returned. MD Reed was notified w/ order to end tx, put in CBC order STAT and to Alteplase both ports overnight. Order carried out ICU MD and bedside nurse notified.
[2024-06-05] MEDS: CATHFLO (ALTEPLASE) INJ 4 MG, Sterile Water 4.4 ML INDWELLCAT (18:16)
[2024-06-05] MEDS: EPOETIN ALFA-EPBX INJ 10,000 UNIT/ML VIAL (ESRD) 10000 UNIT SC (18:16)
[2024-06-05 18:20] LABS: Basophils % (Auto) 0 % (0-2.5); Eosinophils # (Auto) 0.1 Thou/mm3 (0.0-0.5); Eosinophils % (Auto) 1 % (0-10); Hematocrit 21.6 % (41.0-53.0); Immature Granulocytes % (Auto) 1 % (0-0); Immature Granulocytes Auto 0.11 Thou/mm3 (0.00-0.00); Lymphocytes # (Auto) 0.4 Thou/mm3 (1.0-4.8); Lymphocytes % (Auto) 2 % (10-50); Mean Corpuscular HGB Conc 33.8 g/dl (31.0-37.0); Mean Corpuscular Hemoglobin 28.2 pg (25.0-35.0); Mean Corpuscular Volume 83 fL (80-100); Monocytes # (Auto) 0.4 Thou/mm3 (0.0-0.8); Monocytes % (Auto) 2 % (0-12); Neutrophils # (Auto) 14.9 Thou/mm3 (1.8-7.7); Neutrophils % (Auto) 94 % (37-80); Nucleated Red Blood Cell # 0.03 Thou/mm3 (0.00-0.00); Nucleated Red Blood Cell % 0 /100 WBC (0); RDW Standard Deviation 49.1 fL (35.1-43.9); Red Blood Count 2.59 Miln/mm3 (4.50-5.90); White Blood Count 15.8 Thou/mm3 (3.8-10.6)
[2024-06-05 18:23] LABS: Hemoglobin 7.3 g/dL (13.5-16.0); Platelet Count 54 Thou/mm3 (140-440)
[2024-06-05 19:18] LABS: Slide Review Platelets confirmed
--- NOTE | 2024-06-05 19:57 | PD.IMPROG ---
Documentation for date of: 06/05/24 Subjective Subjective Interval history: PEG tube in place No drainage at the PEG site Patient ventilated through the tracheostomy Exam Vital Signs Temp Pulse Resp BP Pulse Ox O2 Del Method O2 Flow Rate 97.3 F 115 H 30 H 121/67 89 L Mechanical Ventilation 15 06/05/24 18:01 06/05/24 18:30 06/05/24 18:30 06/05/24 18:30 06/05/24 18:30 06/05/24 04:00 06/02/24 17:50 FiO2 80 06/05/24 18:01 Objective Labs 06/05/24 18:08 06/05/24 13:45 Labs: Laboratory Results - last 24 hr 06/04/24 06/04/24 06/05/24 19:42 23:34 05:07 WBC 14.2 H RBC 2.75 L Hgb 8.0 L Hct 23.6 L MCV 86 MCH 29.1 MCHC 33.9 RDW Std Deviation 50.7 H Plt Count 78 L D Neut % (Auto) 94 H Lymph % (Auto) 3 L [place] % (Auto) 3 Eos % (Auto) 0 Baso % (Auto) 0 Neut # (Auto) 13.3 H Lymph # (Auto) 0.4 L [place] # (Auto) 0.4 Eos # (Auto) 0.0 Baso # (Auto) 0.0 Immature Gran # (Auto) 0.07 H Absolute Nucleated RBC 0.02 H Immature Gran % 1 H Nucleated RBC % 0 Sodium 151 H Potassium 2.8 L D 2.9 L Chloride 113 H Carbon Dioxide 21.3 Anion Gap 17 H BUN 52 H Creatinine 3.2 H Estim Creat Clear Calc 17.2 L eGFR 20 L BUN/Creatinine Ratio 16 Glucose 122 H Calculated Osmolality 314 H Lactic Acid 3.4 H Calcium 7.1 L Corrected Calcium 8.4 L Phosphorus Total Bilirubin 0.9 D AST 209 H ALT 78 H Alkaline Phosphatase 157 H D Total Protein 4.7 L Albumin 2.4 L Globulin 2.3 Albumin/Globulin Ratio 1.0 L Hepatitis A IgM Ab Non Reactive Hep Bs Antigen Non Reactive Hep Bs Antibody NonReact(Not Immune) L Hep B Core IgM Ab Non Reactive Hepatitis C Antibody Non Reactive Misc Test Result Platelets confirmed 06/05/24 06/05/24 13:45 18:08 WBC 15.8 H RBC 2.59 L Hgb 7.3 L Hct 21.6 L* MCV 83 MCH 28.2 MCHC 33.8 RDW Std Deviation 49.1 H Plt Count 54 L D Neut % (Auto) 94 H Lymph % (Auto) 2 L [place] % (Auto) 2 Eos % (Auto) 1 Baso % (Auto) 0 Neut # (Auto) 14.9 H Lymph # (Auto) 0.4 L [place] # (Auto) 0.4 Eos # (Auto) 0.1 Baso # (Auto) 0.0 Immature Gran # (Auto) 0.11 H Absolute Nucleated RBC 0.03 H Immature Gran % 1 H Nucleated RBC % 0 Sodium 150 H Potassium 3.5 D Chloride 113 H Carbon Dioxide 22.4 Anion Gap 15 BUN 58 H Creatinine 3.4 H Estim Creat Clear Calc 16.2 L eGFR 18 L BUN/Creatinine Ratio 17 Glucose 110 H Calculated Osmolality 315 H Lactic Acid Calcium 7.1 L Corrected Calcium 7.7 L Phosphorus 5.3 H Total Bilirubin AST ALT Alkaline Phosphatase Total Protein Albumin 3.2 L D Globulin Albumin/Globulin Ratio Hepatitis A IgM Ab Hep Bs Antigen Hep Bs Antibody Hep B Core IgM Ab Hepatitis C Antibody Misc Test Result Platelets confirmed Impressions Impression: # No issues at the moment with a PEG tube # Abdominal distention resolved # Mechanically ventilated through the PEG tube Continue current management ABG Interpretation ABG results: 05/31/24 05/31/24 05/31/24 09:33 14:33 16:21 ABG pH 7.25 L 7.18 L* 7.30 L D ABG pCO2 68 H 78 H* D 57 H D ABG pO2 88 124 H D 69 L D ABG HCO3 30 H 29 H 28 H ABG O2 Saturation 96 99 H 94 ABG Base Excess 2 -1 1 VBG pH VBG pCO2 VBG pO2 VBG Base Excess 06/01/24 06/02/24 06/04/24 07:51 18:15 16:07 ABG pH 7.49 H D 7.47 H ABG pCO2 37 D 44 ABG pO2 49 L* D 48 L* ABG HCO3 28 H 32 H ABG O2 Saturation 89 L 86 L ABG Base Excess 5 H 7 H VBG pH 7.45 VBG pCO2 31 L VBG pO2 64 H VBG Base Excess -2 Assessment & Plan A&P Narrative 73-year-old male with past medical history of 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 1. A-fib with RVR, new onset 2. Hypokalemia ?Patient developed A-fib with RVR on 06/02/2024 ?Initial EKG showed on admission sinus tachycardia. ?Repeat EKG on 05/31/2024 that showed sinus rhythm ?EKG on 06/02/2024 showed A-fib with RVR and at this time patient's potassium was 2.9. ?Patient is currently DNR/DNI as per family's wishes ? Patient' family did not want any cardioversion at this time. Plan: ?Continue amiodarone drip for now and add amiodarone 200 p.o BID ?Recommend start patient on Eliquis 5 mg twice daily ? Recommend to keep potassium magnesium above 4 and 2 respectively to avoid any further arrhythmias ?Recommend primary care team to have goals of care discussion 06/04/2024 Patient is on mechanical ventilation at the present point of time. Family again changed his status to limited code and wanted to Patient continues to be in atrial fibrillation with RVR and patient is still on amiodarone drip. Recommend to continue amiodarone drip at 1 mg/min as detailed yesterday. Recommend to also start oral amiodarone 400 mg twice daily for loading amiodarone completely Can give additional digoxin if needed for rate control when patient potassium and kidney function are stable. Cannot start beta-valarie or diltiazem as the patient is hypotensive and is requiring pressors. Family to meet again to discuss the goals of care and regarding the further plan of treatment. Continue heparin drip for anticoagulation and can change to Eliquis 5 mg twice daily if no further procedures planned. Keep potassium greater than 4 in addition greater than 2.0 at all times. 3. Acute on chronic hypoxic respiratory failure 4. Bilateral community-acquired pneumonia versus hospital-acquired pneumonia ? Continue management as per primary care team 5. Large bowel obstruction ?Continue management as per primary care team 6. CVA with residual deficits 7. Chronic PEG tube and tracheostomy ?Continue current management per primary care team 8. DM2 ? Continue current management as per primary care team 9. Bilateral upper extremity DVTs ? Continue current management as per primary care team 10. Anxiety 11. Depression ? Continue current management as per primary care team 12. Recurrent UTIs ? Continue current management as per primary care team There is a high probability of sudden, clinically significant or life threatening deterioration in the patient condition which required the highest level of physician preparedness to intervene urgently. I have personally spent total of 65 minutes of critical care time yesterday, exclusive of time spent on any procedures, in evaluation and management of this critically ill patient. Management of rest of the medical conditions as per primary team and other consultants. Thank you for the consult and allowing me to participate in the care of the patient. Cardiology will continue to follow. Kit Ho M.D. Interventional Cardiology Time Spent With Patient Time: Total time spent is greater than 50% in coordination of care (as documented) at patient's floor/unit and/or counseling patient:
[2024-06-05] MEDS: AMIODARONE HCL 200 MG TABLET GT (21:46)
[2024-06-05] MEDS: HEPARIN SOD INJ 5000 UNIT/ML VIAL SC (21:47)
[2024-06-06] VITALS (124 sets, daily range): BP systolic 69–166; BP diastolic 43–103; PULSE 91–156; RESP 18–38; TEMP 36.5–37.5; O2SAT 80–100; BMI 24.7
[2024-06-06] MEDS: Norepinephrine/D5W 8mg/250ml 8 MG/250 ML BAG 14.458 MG IV (03:45)
[2024-06-06 05:59] LABS: Basophils % (Auto) 0 % (0-2.5); Eosinophils # (Auto) 0.1 Thou/mm3 (0.0-0.5); Eosinophils % (Auto) 0 % (0-10); Hematocrit 21.2 % (41.0-53.0); Immature Granulocytes % (Auto) 1 % (0-0); Immature Granulocytes Auto 0.12 Thou/mm3 (0.00-0.00); Lymphocytes # (Auto) 0.4 Thou/mm3 (1.0-4.8); Lymphocytes % (Auto) 3 % (10-50); Mean Corpuscular HGB Conc 34.9 g/dl (31.0-37.0); Mean Corpuscular Hemoglobin 28.8 pg (25.0-35.0); Mean Corpuscular Volume 83 fL (80-100); Monocytes # (Auto) 0.4 Thou/mm3 (0.0-0.8); Monocytes % (Auto) 3 % (0-12); Neutrophils # (Auto) 13.9 Thou/mm3 (1.8-7.7); Neutrophils % (Auto) 93 % (37-80); Nucleated Red Blood Cell # 0.03 Thou/mm3 (0.00-0.00); Nucleated Red Blood Cell % 0 /100 WBC (0); RDW Standard Deviation 47.7 fL (35.1-43.9); Red Blood Count 2.57 Miln/mm3 (4.50-5.90); White Blood Count 14.9 Thou/mm3 (3.8-10.6)
[2024-06-06 06:02] LABS: Hemoglobin 7.4 g/dL (13.5-16.0); Platelet Count 45 Thou/mm3 (140-440)
[2024-06-06 06:13] LABS: Slide Review Platelets confirmed
[2024-06-06] MEDS: HEPARIN SOD INJ 5000 UNIT/ML VIAL SC (06:18)
[2024-06-06 06:50] LABS: Alanine Aminotransferase 120 U/L (10-49); Albumin, Serum 2.8 gm/dL (3.4-4.8); Albumin/Globulin Ratio 1.6 (1.2-2.2); Alkaline Phosphatase 213 U/L (46-116); Anion Gap 16 (7-16); Aspartate Amino Transferase 303 U/L (0-34); BUN/Creatinine Ratio 18 Ratio (12-20); Bilirubin,Total 1.5 mg/dL (0.3-1.2); Blood Urea Nitrogen 68 mg/dL (9-23); Calcium 7.3 mg/dL (8.3-10.6); Calcium (Corrected) 8.3 mg/dL (8.5-10.1); Carbon Dioxide 21.3 mMol/L (20.0-31.0); Chloride 110 mMol/L (98-107); Creatinine (Component) 3.7 mg/dL (0.6-1.3); Estimated Creatinine Clearance 14.9 mL/min (>60); Globulin 1.8 gm/dL (2.3-3.5); Glucose 84 mg/dL (74-106); Magnesium 2.2 mg/dL (1.6-2.6); Osmolality,Calculated 311 (275-295); Phosphorous 5.7 mg/dL (2.4-5.1); Sodium 147 mMol/L (136-145); Total Protein 4.6 gm/dL (5.7-8.2); eGFR 17 See Note
[2024-06-06 07:02] LABS: Potassium 2.6 mMol/L (3.4-5.1)
[2024-06-06] MEDS: POTASSIUM CHL 10 mEq IVPB 10 MEQ/100 ML BAG 100 MEQ IV ×2 (07:27→08:19)
[2024-06-06] MEDS: AMIODARONE HCL 200 MG TABLET GT ×2 (08:23→20:56)
--- NOTE | 2024-06-06 08:26 | PC.NURSE ---
Pt recieving K+ IV, Amiodorone - Will inform Dr Reed - On 4K+ Bath
--- NOTE | 2024-06-06 08:38 | PC.NURSE ---
Pt Tachy, recieving Amiodorone IV, monitor closely, uneventful start
--- NOTE | 2024-06-06 08:39 | PC.SS ---
Update: Patient participating with dialysis today.
[2024-06-06 08:40] LABS: D-Dimer > 3820 ng/mL (<600)
[2024-06-06] MEDS: PROPOFOL 1,000 MG IVPB 1,000 MG/100 ML VIAL 2.025 MG IV (09:00)
[2024-06-06] MEDS: fentaNYL 2,500 MCG/250 ML BAG 2,500 MCG/250 ML BAG IV (09:00)
[2024-06-06] MEDS: fentaNYL CIT INJ 50 mCg/ML AMP 2ML IVP (09:04)
--- NOTE | 2024-06-06 09:04 | PC.NURSE ---
Pt in Distress, O2 Sat dumped to 78, lungs large amount mucous noted, Plan to sedate and attempt to clear airpath, Dr Avila on site, ordering sedation--Fentanyl and propofol, PCN and RT and PCP onsite awaiting sedation to work then will attempt to remove mucous
[2024-06-06 09:11] LABS: INR 1.4 (0.9-1.3); Prothrombin Time 14.5 Seconds (9.0-12.2)
[2024-06-06] MEDS: AMIODARONE 150 MG IVPB 150 MG/100 ML BAG 582.524 MG IV (09:12)
--- NOTE | 2024-06-06 09:23 | PC.NURSE ---
Pt recieving sedative meds yet fighting falling asleep, O2 sats at 85% and able to see patient resisting relaxing/allowing sedation to work, PCN at bedside--aware of situation
--- NOTE | 2024-06-06 09:33 | PC.NURSE ---
Sedation Working, UF OFF , 50 ml NS, PCN-Katlyn notified, sedation decreased, retake BP, O2 Sats 91%
--- NOTE | 2024-06-06 09:35 | PC.NURSE ---
UF to remain OFF till next reading, act accordingly
[2024-06-06 09:36] LABS: Fibrinogen 515 mg/dL (175-375)
--- NOTE | 2024-06-06 09:49 | PC.NURSE ---
O2 Sat 94%, UF On, monitor closely
[2024-06-06 09:50] LABS: Thyroid Stimulating Hormone 3.37 uIU/mL (0.55-4.78)
--- NOTE | 2024-06-06 10:07 | PC.NURSE ---
BP Drop, Albumin 25 g, (100 ml, 25%), monitor closely, PCN-Katlyn notified
[2024-06-06] MEDS: ALBUMIN HUMAN 25% IVPB 25 GM/100 ML BTL IV (10:13)
--- NOTE | 2024-06-06 10:28 | PC.NURSE ---
BP Drop, UF OFF, 50 ml NS, PCN-Katlyn Notified--increase of NorEpi, monitor Closely
[2024-06-06 10:34] LABS: Base Excess, Venous 0 (-3-3); O2 Saturation, Venous 82 % (96-97); PCO2, Venous 46 mmHg (36-56); PO2, Venous 52 mmHg (15-58); pH, Venous 7.35 (7.33-7.66)
--- NOTE | 2024-06-06 10:34 | PC.NURSE ---
PCP and PCN in, Nor-epi increased, just hope to get through treatment w/o adding vasopressors
[2024-06-06] MEDS: EPOETIN ALFA-EPBX INJ 10,000 UNIT/ML VIAL (NON-ESRD) 10000 UNIT SC (10:51)
--- NOTE | 2024-06-06 11:00 | CHAP ---
Patient was visited by the Spiritual Care Volunteer who prayed for them. (Volunteer was in the hospital from 09:45-11:00)
--- NOTE | 2024-06-06 11:03 | ESPR_ITS ---
Documentation for date of: 06/06/24 Subjective Subjective Interval history: No drainage at the PEG site Patient mechanically ventilated Exam Vital Signs Temp Pulse Resp BP Pulse Ox O2 Del Method O2 Flow Rate 99.2 F 128 H 28 H 93/71 99 Mechanical Ventilation 15 06/06/24 08:11 06/06/24 11:00 06/06/24 10:01 06/06/24 11:00 06/06/24 10:45 06/06/24 10:01 06/02/24 17:50 FiO2 90 06/06/24 10:45 Objective Labs 06/06/24 05:15 06/06/24 10:24 Labs: Laboratory Results - last 24 hr 06/05/24 06/05/24 06/06/24 13:45 18:08 05:15 WBC 15.8 H 14.9 H RBC 2.59 L 2.57 L Hgb 7.3 L 7.4 L Hct 21.6 L* 21.2 L* MCV 83 83 MCH 28.2 28.8 MCHC 33.8 34.9 RDW Std Deviation 49.1 H 47.7 H Plt Count 54 L D 45 L Neut % (Auto) 94 H 93 H Lymph % (Auto) 2 L 3 L [place] % (Auto) 2 3 Eos % (Auto) 1 0 Baso % (Auto) 0 0 Neut # (Auto) 14.9 H 13.9 H Lymph # (Auto) 0.4 L 0.4 L [place] # (Auto) 0.4 0.4 Eos # (Auto) 0.1 0.1 Baso # (Auto) 0.0 0.0 Immature Gran # (Auto) 0.11 H 0.12 H Absolute Nucleated RBC 0.03 H 0.03 H Immature Gran % 1 H 1 H Nucleated RBC % 0 0 PT 14.5 H INR 1.4 H APTT 49.0 H Fibrinogen 515 H D-Dimer > 3820 H Sodium 150 H 147 H Potassium 3.5 D 2.6 L* D Chloride 113 H 110 H Carbon Dioxide 22.4 21.3 Anion Gap 15 16 BUN 58 H 68 H Creatinine 3.4 H 3.7 H Estim Creat Clear Calc 16.2 L 14.9 L eGFR 18 L 17 L BUN/Creatinine Ratio 17 18 Glucose 110 H 84 Calculated Osmolality 315 H 311 H Calcium 7.1 L 7.3 L Corrected Calcium 7.7 L 8.3 L Phosphorus 5.3 H 5.7 H Magnesium 2.2 Total Bilirubin 1.5 H D AST 303 H ALT 120 H Alkaline Phosphatase 213 H D Total Protein 4.6 L Albumin 3.2 L D 2.8 L Globulin 1.8 L Albumin/Globulin Ratio 1.6 TSH 3.37 Misc Test Result Platelets confirmed Platelets confirmed Impressions Impression: # Failure to thrive # Status post placement of a new PEG tube Stool impaction resolved# Continue current management ABG Interpretation ABG results: 05/31/24 05/31/24 05/31/24 09:33 14:33 16:21 ABG pH 7.25 L 7.18 L* 7.30 L D ABG pCO2 68 H 78 H* D 57 H D ABG pO2 88 124 H D 69 L D ABG HCO3 30 H 29 H 28 H ABG O2 Saturation 96 99 H 94 ABG Base Excess 2 -1 1 VBG pH VBG pCO2 VBG pO2 VBG Base Excess 06/01/24 06/02/24 06/04/24 07:51 18:15 16:07 ABG pH 7.49 H D 7.47 H ABG pCO2 37 D 44 ABG pO2 49 L* D 48 L* ABG HCO3 28 H 32 H ABG O2 Saturation 89 L 86 L ABG Base Excess 5 H 7 H VBG pH 7.45 VBG pCO2 31 L VBG pO2 64 H VBG Base Excess -2 Assessment & Plan A&P Narrative 73-year-old male with past medical history of 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 1. A-fib with RVR, new onset 2. Hypokalemia ?Patient developed A-fib with RVR on 06/02/2024 ?Initial EKG showed on admission sinus tachycardia. ?Repeat EKG on 05/31/2024 that showed sinus rhythm ?EKG on 06/02/2024 showed A-fib with RVR and at this time patient's potassium was 2.9. ?Patient is currently DNR/DNI as per family's wishes ? Patient' family did not want any cardioversion at this time. Plan: ?Continue amiodarone drip for now and add amiodarone 200 p.o BID ?Recommend start patient on Eliquis 5 mg twice daily ? Recommend to keep potassium magnesium above 4 and 2 respectively to avoid any further arrhythmias ?Recommend primary care team to have goals of care discussion 06/04/2024 Patient is on mechanical ventilation at the present point of time. Family again changed his status to limited code and wanted to Patient continues to be in atrial fibrillation with RVR and patient is still on amiodarone drip. Recommend to continue amiodarone drip at 1 mg/min as detailed yesterday. Recommend to also start oral amiodarone 400 mg twice daily for loading amiodarone completely Can give additional digoxin if needed for rate control when patient potassium and kidney function are stable. Cannot start beta-valarie or diltiazem as the patient is hypotensive and is requiring pressors. Family to meet again to discuss the goals of care and regarding the further plan of treatment. Continue heparin drip for anticoagulation and can change to Eliquis 5 mg twice daily if no further procedures planned. Keep potassium greater than 4 in addition greater than 2.0 at all times. 3. Acute on chronic hypoxic respiratory failure 4. Bilateral community-acquired pneumonia versus hospital-acquired pneumonia ? Continue management as per primary care team 5. Large bowel obstruction ?Continue management as per primary care team 6. CVA with residual deficits 7. Chronic PEG tube and tracheostomy ?Continue current management per primary care team 8. DM2 ? Continue current management as per primary care team 9. Bilateral upper extremity DVTs ? Continue current management as per primary care team 10. Anxiety 11. Depression ? Continue current management as per primary care team 12. Recurrent UTIs ? Continue current management as per primary care team There is a high probability of sudden, clinically significant or life threatening deterioration in the patient condition which required the highest level of physician preparedness to intervene urgently. I have personally spent total of 65 minutes of critical care time yesterday, exclusive of time spent on any procedures, in evaluation and management of this critically ill patient. Management of rest of the medical conditions as per primary team and other consultants. Thank you for the consult and allowing me to participate in the care of the patient. Cardiology will continue to follow. Kit Ho M.D. Interventional Cardiology Time Spent With Patient Time: Total time spent is greater than 50% in coordination of care (as documented) at patient's floor/unit and/or counseling patient:
--- NOTE | 2024-06-06 11:14 | PC.NURSE ---
Treatment ended, Pt stable, Pt loss 804 ml, Rec'd one unit Albumin, Report to PCN-Katlyn
[2024-06-06] MEDS: HEPARIN SOD INJ 1000 UNIT/ML VIAL 10 ML 2200 UNIT INDWELLCAT (11:19)
[2024-06-06] MEDS: CALCIUM ACETATE 667 MG TABLET PO ×2 (11:28→18:17)
[2024-06-06] MEDS: LACTULOSE SYRUP 20 GM/30 ML UDC PO (11:28)
[2024-06-06] MEDS: PANTOPRAZOLE INJ 40 MG VIAL IVP (11:28)
--- NOTE | 2024-06-06 11:31 | PD.RESPRO ---
Documentation for date of: 06/06/24 Subjective Subjective Interval history: Patient was seen at bedside this morning. Clinically unchanged. Patient continues to be in A-fib overnight and still not rate control on linen sorter reviewed Recommend to continue amiodarone 200 mg twice daily. Recommend to start Eliquis 5 mg twice daily if no contraindications. Recommend ICU team to have goals of care discussion with family. Potassium 2.6 today, magnesium 2.8 today, recommend to keep potassium and magnesium above 4 and 2 respectively to avoid any further arrhythmias Kidney function continues to decline with creatinine 3.7 and BUN 68, patient is currently receiving hemodialysis. Patient is on Levophed Exam Vital Signs Temp Pulse Resp BP Pulse Ox O2 Del Method O2 Flow Rate 98.2 F 128 H 28 H 113/72 99 Mechanical Ventilation 15 06/06/24 11:25 06/06/24 11:25 06/06/24 11:25 06/06/24 11:25 06/06/24 11:25 06/06/24 11:01 06/02/24 17:50 FiO2 100 06/06/24 11:25 Narrative Exam General: Nonverbal and unresponsive. Eyes: Pupils were difficult to assess due to cataracts Ears: No visible ear discharge Nose: No visible nasal discharge. Mouth/Throat: Dry mucous membranes, no redness, no lesions. Neck: Neck supple, no cervical lymphadenopathy. Lungs: Bronchial breath sounds bilateral Cardio: Normal S1/S2, irregular rhythm, no murmurs, no JVD Abdomen: Soft no palpable masses, peristalsis present, no guarding or rebound, PEG tube in place, 2 small 1 to 2 cm dry near the umbilicus wounds Extremities: Symmetrical, no significant deformities, 2+ peripheral edema upto thighd,peripheral pulses presents. Skin: No rashes, no lesions, warm to touch. Neuro: Cannot be assessed due to patient's medical condition Psych: Flat affect Objective Labs 06/06/24 05:15 06/06/24 10:24 Labs: Laboratory Results - last 24 hr 06/05/24 06/05/24 06/06/24 13:45 18:08 05:15 WBC 15.8 H 14.9 H RBC 2.59 L 2.57 L Hgb 7.3 L 7.4 L Hct 21.6 L* 21.2 L* MCV 83 83 MCH 28.2 28.8 MCHC 33.8 34.9 RDW Std Deviation 49.1 H 47.7 H Plt Count 54 L D 45 L Neut % (Auto) 94 H 93 H Lymph % (Auto) 2 L 3 L [place] % (Auto) 2 3 Eos % (Auto) 1 0 Baso % (Auto) 0 0 Neut # (Auto) 14.9 H 13.9 H Lymph # (Auto) 0.4 L 0.4 L [place] # (Auto) 0.4 0.4 Eos # (Auto) 0.1 0.1 Baso # (Auto) 0.0 0.0 Immature Gran # (Auto) 0.11 H 0.12 H Absolute Nucleated RBC 0.03 H 0.03 H Immature Gran % 1 H 1 H Nucleated RBC % 0 0 PT 14.5 H INR 1.4 H APTT 49.0 H Fibrinogen 515 H D-Dimer > 3820 H VBG pH VBG pCO2 VBG pO2 VBG O2 Sat (Lo) VBG Base Excess Sodium 150 H 147 H Potassium 3.5 D 2.6 L* D Chloride 113 H 110 H Carbon Dioxide 22.4 21.3 Anion Gap 15 16 BUN 58 H 68 H Creatinine 3.4 H 3.7 H Estim Creat Clear Calc 16.2 L 14.9 L eGFR 18 L 17 L BUN/Creatinine Ratio 17 18 Glucose 110 H 84 Calculated Osmolality 315 H 311 H Calcium 7.1 L 7.3 L Corrected Calcium 7.7 L 8.3 L Phosphorus 5.3 H 5.7 H Magnesium 2.2 Total Bilirubin 1.5 H D AST 303 H ALT 120 H Alkaline Phosphatase 213 H D Total Protein 4.6 L Albumin 3.2 L D 2.8 L Globulin 1.8 L Albumin/Globulin Ratio 1.6 TSH 3.37 Misc Test Result Platelets confirmed Platelets confirmed 06/06/24 10:24 WBC RBC Hgb Hct MCV MCH MCHC RDW Std Deviation Plt Count Neut % (Auto) Lymph % (Auto) [place] % (Auto) Eos % (Auto) Baso % (Auto) Neut # (Auto) Lymph # (Auto) [place] # (Auto) Eos # (Auto) Baso # (Auto) Immature Gran # (Auto) Absolute Nucleated RBC Immature Gran % Nucleated RBC % PT INR APTT Fibrinogen D-Dimer VBG pH 7.35 VBG pCO2 46 D VBG pO2 52 VBG O2 Sat (Lo) 82 L D VBG Base Excess 0 Sodium Potassium Chloride Carbon Dioxide Anion Gap BUN Creatinine Estim Creat Clear Calc eGFR BUN/Creatinine Ratio Glucose Calculated Osmolality Calcium Corrected Calcium Phosphorus Magnesium Total Bilirubin AST ALT Alkaline Phosphatase Total Protein Albumin Globulin Albumin/Globulin Ratio TSH Misc Test Result ABG Interpretation ABG results: 05/31/24 05/31/24 05/31/24 09:33 14:33 16:21 ABG pH 7.25 L 7.18 L* 7.30 L D ABG pCO2 68 H 78 H* D 57 H D ABG pO2 88 124 H D 69 L D ABG HCO3 30 H 29 H 28 H ABG O2 Saturation 96 99 H 94 ABG Base Excess 2 -1 1 VBG pH VBG pCO2 VBG pO2 VBG Base Excess 06/01/24 06/02/24 06/04/24 07:51 18:15 16:07 ABG pH 7.49 H D 7.47 H ABG pCO2 37 D 44 ABG pO2 49 L* D 48 L* ABG HCO3 28 H 32 H ABG O2 Saturation 89 L 86 L ABG Base Excess 5 H 7 H VBG pH 7.45 VBG pCO2 31 L VBG pO2 64 H VBG Base Excess -2 06/06/24 10:24 ABG pH ABG pCO2 ABG pO2 ABG HCO3 ABG O2 Saturation ABG Base Excess VBG pH 7.35 VBG pCO2 46 D VBG pO2 52 VBG Base Excess 0 Quality Measures Quality Measures VTE prophylaxis Advance care planning discussed with:: patient Assessment & Plan Assessment Current Active Medications: Generic Name Dose Route Start Last Admin Trade Name Freq PRN Reason Stop Dose Admin Acetaminophen 650 mg 06/04/24 15:09 06/04/24 16:40 Acetaminophen Lindsey 325 Mg/10 Ml Udc GT 07/04/24 15:08 650 mg Q6HR PRN Administration Pain Or Fever > 100.4 Albuterol/Ipratropium 3 ml 06/04/24 15:33 Albuterol/Ipratropium (Duoneb) Rt Lindsey 3 Ml Nebu INH 07/04/24 15:32 Q2HR PRN SHORTNESS OF BREATH OR WHEEZE Amiodarone HCl 200 mg 06/05/24 21:00 06/06/24 08:23 Amiodarone Hcl 200 Mg Tablet GT 07/05/24 20:59 200 mg BID XOCHITL Administration Calcium Acetate 667 mg 06/04/24 18:45 06/06/24 11:28 Calcium Acetate 667 Mg Tablet PO 07/04/24 18:44 667 mg TIDWM XOCHITL Administration Dextrose 25 ml 06/04/24 15:32 Dextrose 50%-Water Inj 50 Ml Syringe IV 07/04/24 15:31 Q15MIN PRN BG 50-70 responsive npo pt Dextrose 50 ml 06/04/24 15:32 Dextrose 50%-Water Inj 50 Ml Syringe IV 07/04/24 15:31 Q15MIN PRN BG <50 OR BG <70 & pt unresponsive Heparin Sodium (Porcine) 5,000 unit 06/04/24 22:00 06/06/24 06:18 Heparin Sod Inj 5000 Unit/Ml Vial SC 06/18/24 21:59 5,000 unit Q8HR XOCHITL Administration Heparin Sodium (Porcine) 2,200 unit 06/05/24 17:03 06/06/24 11:19 Heparin Sod Inj 1000 Unit/Ml Vial 10 Ml INDWELLCAT 06/19/24 17:02 2,200 unit PRN PRN Administration DIALYSIS Norepinephrine/Dextrose 8 mg in 250 mls @ 6.572 mls/hr 06/03/24 11:37 06/06/24 11:00 Levophed In D5w 8mg/250ml IV 07/03/24 11:36 0.19 mcg/kg/min .Q24H PRN 24.973 mls/hr PER PROTOCOL Titration Protocol 0.05 MCG/KG/MIN Levofloxacin/Dextrose 500 mg in 100 mls @ 100 mls/hr 06/06/24 18:30 Levaquin Ivpb IV 06/13/24 18:29 Q48H [facility] Albumin Human 25 gm in 100 mls @ 100 mls/min 06/05/24 17:05 06/06/24 10:13 Albuminar-25 Ivpb IV 100 mls/min PRN PRN Administration DIALYSIS Fentanyl Citrate 2,500 mcg in 250 mls @ 2.5 mls/hr 06/06/24 08:54 06/06/24 11:00 Sublimaze Inj 2,500 Mcg/250 Ml Bag IV 06/11/24 08:53 25 mcg/hr .Q24H PRN 2.5 mls/hr PER PROTOCOL Titration Protocol 25 MCG/HR Propofol 1,000 mg in 100 mls @ 2.025 mls/hr 06/06/24 08:55 06/06/24 11:00 Diprivan Ivpb IV 07/06/24 08:54 25 mcg/kg/min .Q24H PRN 10.125 mls/hr PER PROTOCOL Titration Protocol 5 MCG/KG/MIN Insulin Human Regular 0 unit 06/04/24 18:00 06/06/24 11:08 Insulin Hum Regular 1 Unit/0.01 Ml (Per Unit) SC 07/04/24 17:59 Not Given Q6HR XOCHITL Protocol Lactulose 20 gm 06/06/24 09:00 06/06/24 11:28 Lactulose Syrup 20 Gm/30 Ml Udc PO 07/06/24 08:59 20 gm QDAY XOCHITL Administration Protocol Pantoprazole Sodium 40 mg 06/04/24 15:30 06/06/24 11:28 Pantoprazole Inj 40 Mg Vial IVP 07/04/24 15:29 40 mg QDAY XOCHITL Administration Pharmacy Consult 1 each 06/04/24 18:24 Pharmacy Renal Dose Adjustment 1 Ea XX 07/04/24 18:23 PRN PRN CONSULT Plan 73-year-old male with past medical history of 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 1. A-fib with RVR, new onset 2. Hypokalemia ?Patient developed A-fib with RVR on 06/02/2024 ?Initial EKG showed on admission sinus tachycardia. ?Repeat EKG on 05/31/2024 that showed sinus rhythm ?EKG on 06/02/2024 showed A-fib with RVR and at this time patient's potassium was 2.9. ?Patient is currently Limited code (no chest compressions) as per family's wishes ? Patient' family did not want any cardioversion at this time. Plan: -Recommend to continue amiodarone 200 mg twice daily. ?Recommend start patient on Eliquis 5 mg twice daily -Can give additional digoxin if needed for rate control when patient potassium and kidney function are stable. -Cannot start beta-valarie or diltiazem as the patient continue to be hypotensive ? Recommend to keep potassium magnesium above 4 and 2 respectively to avoid any further arrhythmias ?Recommend primary care team to have goals of care discussion 3. Acute on chronic hypoxic respiratory failure 4. Bilateral community-acquired pneumonia versus hospital-acquired pneumonia ? Continue management as per primary care team 5. Large bowel obstruction ?Continue management as per primary care team 6. CVA with residual deficits 7. Chronic PEG tube and tracheostomy ?Continue current management per primary care team 8. DM2 ? Continue current management as per primary care team 9. Bilateral upper extremity DVTs ? Continue current management as per primary care team 10. Anxiety 11. Depression ? Continue current management as per primary care team 12. Recurrent UTIs ? Continue current management as per primary care team Continue rest of management as per primary team. We are grateful to be able to participate in Mr. Sosa' care. Thank you for the consult Plan of care discussed with attending Liquor Bridge Operator Helper, Dr. Georgia Mcmahan MD PGY-1 Attending Provider Attestation/Addendum I have personally seen and examined the patient separately on the above date of service and discussed the plan of care with the resident. I reviewed the resident Dr. Allen consultation progress note and agree with the resident findings and plan in the note above and have also edited the documentation to reflect my findings and plan. Kit Ho M.D. Interventional Cardiology
[2024-06-06 12:30] LABS: Anion Gap 11 (7-16); BUN/Creatinine Ratio 19 Ratio (12-20); Blood Urea Nitrogen 39 mg/dL (9-23); Calcium 8.8 mg/dL (8.3-10.6); Carbon Dioxide 25.1 mMol/L (20.0-31.0); Chloride 107 mMol/L (98-107); Creatinine (Component) 2.1 mg/dL (0.6-1.3); Estimated Creatinine Clearance 25.9 mL/min (>60); Glucose 88 mg/dL (74-106); Osmolality,Calculated 293 (275-295); Sodium 143 mMol/L (136-145); eGFR 33 See Note
--- NOTE | 2024-06-06 13:47 | ESPR_ITS ---
<Statement entered by Sai Avila MD - 06/07/24 20:43> TOTAL CC TIME: 45 MIN I saw and evaluated the patient. I reviewed the resident?s note and agree with findings and plan as documented in the resident?s note. Upon my evaluation, this patient had a high probability of imminent or life- threatening deterioration due to ARDS, which required my direct attention, intervention, and personal management. This time is exclusive of time spent on procedures, which are documented separately if performed. 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 Patient recently came to the ED on 05/24/2024 with similar complaints and received enema following which patient had a bowel movement and transferred back to the facility. Later patient was still found to have constipation for which Dr. Durant was consulted and patient received different bowel regimens and GoLytely with no much effect on constipation. As the patient is having progressive severe abdominal distention with constipation despite bowel regimens and GoLytely he was brought to the hospital today. No history of fever, vomiting. Dr. Durant was consulted and he tried to manually disimpact the stools but unsuccessful. Later Dr Cramer was consulted. ED Course: -Initial vitals were blood pressure 140/84 mmHg, pulse rate 101 bpm, respiratory rate 22/min, SpO2 98% on mechanical ventilator on AC/VC mode. -Labs significant for WBC 9.1, Hb 11.8, platelets 241, sodium 138, potassium 3.3, chloride 90, bicarb 37.1, lactate 1.2, AST 41, ALT 23, procalcitonin 0.07 -CT abdomen/pelvis showed markedly distended large bowel with rectal thickening, massive stool impaction in the rectosigmoid colon and right inguinal hernia with urinary bladder as content -In the ED, patient was given potassium, cefepime. -Patient was admitted for Past medical history: CVA, hypertension, hyperlipidemia, diabetes mellitus, chronic PEG, COPD Past surgical history: PEG tube placement Social history: Unknown Patient developed worsening labs, respiratory distress with hypoxia, fever, and hypotension on the floors prompting rapid response. At bedside patient had MAP 41, with weak and slow peripheral pulse. Patient had clear mottling of feet, knees, hands. Chest x-ray showed worsening infiltrates of both lungs, especially prominent in left lung. Patient upgraded to ICU for worsening acute hypoxic respiratory failure, hypotension with weak peripheral pulses. Patient did not require pressors, received 2 L bolus lactated Ringer's with significant improvement in blood pressure. Peripheral pulse improved as well, heart rate WNL. Patient had multiple bowel movements with stabilizing of respiratory function, downgraded to telemetry. ICU consulted due to afib with RVR, worsening hypotension, requiring pressers to maintain MAP >65, and worsening respiratory distress requiring bagging for 1 hour. GOC discussion was held this morning with patient's and son. Snuff Box Finisher, hospitalist team, and RN were at bedside. Interpretive services were utilized. and son were updated with the critical nature of patient's condition, including shock, severe respiratory distress with hypoxia while on 100% FiO2, severe hypokalemia, hypernatremia, atrial fibrillation with rapid ventricular response, organ dysfunction/lactic acidosis (worsening ZACH without urine output, likely secondary to shock) in addition to chronic conditions (h/o CVA leaving patient bedbound and fully dependent, chronic respiratory failure, chronic PEG). Family understood the poor prognosis for the patient, and requested to speak with patient's other children. Later, family made a decision and would like to initiate comfort measures once the youngest son is at bedside, likely wire welder on 06/04. Plan is to discontinue all medications and lab draws at this time, other than levophed via peripheral IV, until patient's son arrives on 06/04. Once son arrives, hospitalist team will discontinue levophed and start comfort measures. Family is aware that PIV may fail, and patient may possibly pass overnight. 06/04/2024: Rapid response was called when patient developed afib with RVR. Hospitalist team initiated amiodarone drip for patient. Family re-initiated goals of care discussion, deciding to change patient to be limited code (no compressions) and otherwise reciev full treatment, including line placements and dialysis if necessary. Patient was then transferred to ICU for intensive management. Hospitalist team resumed patients previous meds. To facilitate lab draws and dialysis if necessary, a tri-flow central line was placed. After US exam of the neck, it was determined that even with high IJ placement there was not enough room around tracheostomy strap to maintain sterility, and a femoral line was placed without incident. Blood cultures, labs, CXR ordered. CXR showed severe diffuse pneumonia. Patient receiving broad spectrum antibiotics. Patient on pressors. 06/05/2024: Patient seen and examined at bedside. Neurologic status unchanged. Plan for dialysis today, per Dr. Reed patient was too unstable for dialysis given poor hemodynamics and respiratory status. Family was updated on patients condition and explained risks of dialysis, elected to move forward with dialysis. Dialysis planned for this evening without fluid removal. Patient continues to require pressers. Per night team, patient developed increased vertical nystagmus and belly movements, resolved with Ativan 2mg x1. 06/06/2024: Patient seen and examined at bedside. Patient received dialysis today. Developed worsening afib with tachycardia on dialysis, patient became agitated and asynchronous with vent. Propofol and fentanyl were initiated to maintain vent synchronicity, amiodrone 150mg bolus x1 given. Patient was able to complete dialysis with 800ml fluid removal. Tidal volume decreased from 450 to 380 for lung protective strategy in setting of ARDS. Plan to initiate tube feeds today. Patient has worsening thrombocytopenia, no evidence of hemorrhaging. Exam Vital Signs Temp Pulse Resp BP Pulse Ox O2 Del Method O2 Flow Rate 98.2 F 120 H 28 H 120/66 96 Mechanical Ventilation 15 06/06/24 11:45 06/06/24 13:30 06/06/24 13:30 06/06/24 13:30 06/06/24 13:30 06/06/24 13:00 06/02/24 17:50 FiO2 100 06/06/24 13:00 Narrative Exam PE: Gen: Alert, poorly responsive. Tracheostomy. HEENT: NCAT, anicteric conjunctivae. Dry mucous membranes. Vertical nystagmus. CVS: No M/R/G. Afib with tachycardia. Resp: Coarse lung sounds. Rhonchi and wheezing all lung ansari. Abd: Abdomen distended, soft. PEG tube. MSK: Good ROM in BUE & BLE. Bilateral lower and upper extremity edema. Edematous scrotum. Right femoral tri-flow catheter. Neuro: CN II-XII grossly intact. Baseline nonverbal. Sometimes tracks sounds. Objective Labs 06/06/24 05:15 06/06/24 10:24 Labs: Laboratory Results - last 24 hr 06/05/24 06/05/24 06/06/24 13:45 18:08 05:15 WBC 15.8 H 14.9 H RBC 2.59 L 2.57 L Hgb 7.3 L 7.4 L Hct 21.6 L* 21.2 L* MCV 83 83 MCH 28.2 28.8 MCHC 33.8 34.9 RDW Std Deviation 49.1 H 47.7 H Plt Count 54 L D 45 L Neut % (Auto) 94 H 93 H Lymph % (Auto) 2 L 3 L [place] % (Auto) 2 3 Eos % (Auto) 1 0 Baso % (Auto) 0 0 Neut # (Auto) 14.9 H 13.9 H Lymph # (Auto) 0.4 L 0.4 L [place] # (Auto) 0.4 0.4 Eos # (Auto) 0.1 0.1 Baso # (Auto) 0.0 0.0 Immature Gran # (Auto) 0.11 H 0.12 H Absolute Nucleated RBC 0.03 H 0.03 H Immature Gran % 1 H 1 H Nucleated RBC % 0 0 PT 14.5 H INR 1.4 H APTT 49.0 H Fibrinogen 515 H D-Dimer > 3820 H VBG pH VBG pCO2 VBG pO2 VBG O2 Sat (Lo) VBG Base Excess Sodium 150 H 147 H Potassium 3.5 D 2.6 L* D Chloride 113 H 110 H Carbon Dioxide 22.4 21.3 Anion Gap 15 16 BUN 58 H 68 H Creatinine 3.4 H 3.7 H Estim Creat Clear Calc 16.2 L 14.9 L eGFR 18 L 17 L BUN/Creatinine Ratio 17 18 Glucose 110 H 84 Calculated Osmolality 315 H 311 H Calcium 7.1 L 7.3 L Corrected Calcium 7.7 L 8.3 L Phosphorus 5.3 H 5.7 H Magnesium 2.2 Total Bilirubin 1.5 H D AST 303 H ALT 120 H Alkaline Phosphatase 213 H D Total Protein 4.6 L Albumin 3.2 L D 2.8 L Globulin 1.8 L Albumin/Globulin Ratio 1.6 TSH 3.37 Misc Test Result Platelets confirmed Platelets confirmed 06/06/24 10:24 WBC RBC Hgb Hct MCV MCH MCHC RDW Std Deviation Plt Count Neut % (Auto) Lymph % (Auto) [place] % (Auto) Eos % (Auto) Baso % (Auto) Neut # (Auto) Lymph # (Auto) [place] # (Auto) Eos # (Auto) Baso # (Auto) Immature Gran # (Auto) Absolute Nucleated RBC Immature Gran % Nucleated RBC % PT INR APTT Fibrinogen D-Dimer VBG pH 7.35 VBG pCO2 46 D VBG pO2 52 VBG O2 Sat (Lo) 82 L D VBG Base Excess 0 Sodium 143 Potassium 3.0 L Chloride 107 Carbon Dioxide 25.1 Anion Gap 11 BUN 39 H Creatinine 2.1 H D Estim Creat Clear Calc 25.9 L eGFR 33 L BUN/Creatinine Ratio 19 Glucose 88 Calculated Osmolality 293 Calcium 8.8 D Corrected Calcium Phosphorus Magnesium Total Bilirubin AST ALT Alkaline Phosphatase Total Protein Albumin Globulin Albumin/Globulin Ratio TSH Misc Test Result ABG Interpretation ABG results: 05/31/24 05/31/24 05/31/24 09:33 14:33 16:21 ABG pH 7.25 L 7.18 L* 7.30 L D ABG pCO2 68 H 78 H* D 57 H D ABG pO2 88 124 H D 69 L D ABG HCO3 30 H 29 H 28 H ABG O2 Saturation 96 99 H 94 ABG Base Excess 2 -1 1 VBG pH VBG pCO2 VBG pO2 VBG Base Excess 06/01/24 06/02/24 06/04/24 07:51 18:15 16:07 ABG pH 7.49 H D 7.47 H ABG pCO2 37 D 44 ABG pO2 49 L* D 48 L* ABG HCO3 28 H 32 H ABG O2 Saturation 89 L 86 L ABG Base Excess 5 H 7 H VBG pH 7.45 VBG pCO2 31 L VBG pO2 64 H VBG Base Excess -2 06/06/24 10:24 ABG pH ABG pCO2 ABG pO2 ABG HCO3 ABG O2 Saturation ABG Base Excess VBG pH 7.35 VBG pCO2 46 D VBG pO2 52 VBG Base Excess 0 Quality Measures Quality Measures VTE prophylaxis Advance care planning discussed with:: spouse Assessment & Plan Assessment Current Active Medications: Generic Name Dose Route Start Last Admin Trade Name Freq PRN Reason Stop Dose Admin Acetaminophen 650 mg 06/04/24 15:09 06/04/24 16:40 Acetaminophen Lindsey 325 Mg/10 Ml Udc GT 07/04/24 15:08 650 mg Q6HR PRN Administration Pain Or Fever > 100.4 Albuterol/Ipratropium 3 ml 06/04/24 15:33 Albuterol/Ipratropium (Duoneb) Rt Lindsey 3 Ml Nebu INH 07/04/24 15:32 Q2HR PRN SHORTNESS OF BREATH OR WHEEZE Amiodarone HCl 200 mg 06/05/24 21:00 06/06/24 08:23 Amiodarone Hcl 200 Mg Tablet GT 07/05/24 20:59 200 mg BID XOCHITL Administration Calcium Acetate 667 mg 06/04/24 18:45 06/06/24 11:28 Calcium Acetate 667 Mg Tablet PO 07/04/24 18:44 667 mg TIDWM XOCHITL Administration Dextrose 25 ml 06/04/24 15:32 Dextrose 50%-Water Inj 50 Ml Syringe IV 07/04/24 15:31 Q15MIN PRN BG 50-70 responsive npo pt Dextrose 50 ml 06/04/24 15:32 Dextrose 50%-Water Inj 50 Ml Syringe IV 07/04/24 15:31 Q15MIN PRN BG <50 OR BG <70 & pt unresponsive Heparin Sodium (Porcine) 5,000 unit 06/04/24 22:00 06/06/24 06:18 Heparin Sod Inj 5000 Unit/Ml Vial SC 06/18/24 21:59 5,000 unit Q8HR XOCHITL Administration Heparin Sodium (Porcine) 2,200 unit 06/05/24 17:03 06/06/24 11:19 Heparin Sod Inj 1000 Unit/Ml Vial 10 Ml INDWELLCAT 06/19/24 17:02 2,200 unit PRN PRN Administration DIALYSIS Norepinephrine/Dextrose 8 mg in 250 mls @ 6.572 mls/hr 06/03/24 11:37 06/06/24 13:00 Levophed In D5w 8mg/250ml IV 07/03/24 11:36 0.13 mcg/kg/min .Q24H PRN 17.087 mls/hr PER PROTOCOL Titration Protocol 0.05 MCG/KG/MIN Levofloxacin/Dextrose 500 mg in 100 mls @ 100 mls/hr 06/06/24 18:30 Levaquin Ivpb IV 06/13/24 18:29 Q48H XOCHITL Albumin Human 25 gm in 100 mls @ 100 mls/min 06/05/24 17:05 06/06/24 10:13 Albuminar-25 Ivpb IV 100 mls/min PRN PRN Administration DIALYSIS Fentanyl Citrate 2,500 mcg in 250 mls @ 2.5 mls/hr 06/06/24 08:54 06/06/24 13:00 Sublimaze Inj 2,500 Mcg/250 Ml Bag IV 06/11/24 08:53 25 mcg/hr .Q24H PRN 2.5 mls/hr PER PROTOCOL Titration Protocol 25 MCG/HR Propofol 1,000 mg in 100 mls @ 2.025 mls/hr 06/06/24 08:55 06/06/24 13:00 Diprivan Ivpb IV 07/06/24 08:54 25 mcg/kg/min .Q24H PRN 10.125 mls/hr PER PROTOCOL Titration Protocol 5 MCG/KG/MIN Potassium Chloride 10 meq in 100 mls @ 100 mls/hr 06/06/24 13:46 Kcl Ivpb IV 06/06/24 15:45 Q1H XOCHITL Insulin Human Regular 0 unit 06/04/24 18:00 06/06/24 11:08 Insulin Hum Regular 1 Unit/0.01 Ml (Per Unit) SC 07/04/24 17:59 Not Given Q6HR XOCHITL Protocol Lactulose 20 gm 06/06/24 09:00 06/06/24 11:28 Lactulose Syrup 20 Gm/30 Ml Udc PO 07/06/24 08:59 20 gm QDAY XOCHITL Administration Protocol Pantoprazole Sodium 40 mg 06/04/24 15:30 06/06/24 11:28 Pantoprazole Inj 40 Mg Vial IVP 07/04/24 15:29 40 mg QDAY XOCHITL Administration Pharmacy Consult 1 each 06/04/24 18:24 Pharmacy Renal Dose Adjustment 1 Ea XX 07/04/24 18:23 PRN PRN CONSULT Plan 73-year-old male with 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 Neuro: #Acute encephalopathy #CVA with residual deficits Metabolic encephalopathy due to severe constipation, hypoxia, metabolic disturbances. Patient is nonverbal at baseline, per family at bedside he is normally somewhat interactive. Currently patient is responsive only to pain, opens eyes, does not track sounds. Patient became agitated during dialysis, sedated to maintain vent synchronicity. -Treat underlying conditions -Monitor Cardio: #Septic shock Patient developed severe hypotension causing rapid response to be called, MAP 41. Patient had notable mottling of hands, knees, feet. Patient has had fevers, leukocytosis. Patient showed significant improvement after 2 L bolus lactated Ringer's, hypotension resolved. Patient was downgraded, and per family wishes labs and medications other than levophed were discontinued. Patient's family later elected to resume treatment. Patient developed new fevers, increased leukocytosis. Procal 8.19. Repeat blood cultures drawn. Patient started on levofloxacin based on previous cultures, dosed for acute kidney injury. -Close monitoring -Levophed, titrate as needed -Levofloxacin 750 mg IV x1, followed by Levofloxacin 500 mg IV q48h (Started 06/04) -Follow-up blood cultures #Afib with RVR Patient developed afib with RVR prompting rapid response. Amio bolus given, drip completed. Worsening tachycardia during dialysis, resolved with 150mg bolus amiodorone x1. -amiodarone 200mg GT BID -telemonitoring Pulm: #Acute hypoxic respiratory failure #Pneumonia #ARDS Patient developed worsening hypoxia despite increasing FiO2 on the floors following massive aspiration. Chest x-ray shows significant bilateral pneumonia, more severe on the left side. Patient has significantly distended abdomen, present on lungs. ABG showed pH 7.18, pCO2 70, pO2 124. Vent settings changed to increase tidal volume and respiratory rate, repeat ABG showed pH 7.3, pCO2 57, pO2 69. Patient improved enough for downgrade to telemetry, was later upgraded back to ICU for worsening hypoxia, hypotension, afib with RVR. Patient continues to have high FiO2 requirements to maintain saturation. Tidal volume decreased from 450 to 380. -Maintain vent settings, wean down FiO2 as tolerated -Duoneb as needed -Antibiotics as above -Levofloxacin GI: #Transaminitis DDx Medication effect vs. severe acute illness Patient has had mild transaminitis during hospital stay. Slightly uptrending, patient on levaquin and amiodarone. Timing does not match rise in LFTs, could be contributing factor. -monitor #PEG tube Patient has chronic PEG tube. Feeds have been held due to large bowel obstruction, now resolved. -Tube feeds, will advance Renal: #Hypokalemia Patient has had severely low potassium, down to 2.2. Patient was given multiple doses of potassium chloride, potassium improved to 3.5. After family requested treatment, repeat labs were drawn, potassium 2.2. 60mEq GT and 10 mEq IV ordered. Patient receiving dialysis with potassium repletion. -Monitor -Replete as needed Endo: #DM Patient history -ISS Heme: #Thrombocytopenia DDx: REaction to severe illness vs. DIC Patient has had mild thrombocytopenia, steadily worsening for several days. Recently downtrended to 47. No signs of thrombosis or hemorrhaging. DIC panel: PT 14.5, PTT 49, Fibrinogen 515, D-Dimer >3820. -Monitor -Treat underlying conditions -Replace platelets if <20k #Leukocytosis Likely due to infection -Monitor #Normocytic anemia Patient has chronic normocytic anemia, slightly worse than normal currently. No signs of bleeding. -Monitor ID: #Pneumonia Patient has severe bilateral pneumonia. Procal 8.19. Fevers. Patient received Vancomycin and Zosyn previously. Will adjust antibiotic dosage for reduced creatinine clearance -Levofloxacin 750 mg IV x1, followed by Levofloxacin 500 mg IV q48h (Started 06/04) -Follow up blood cultures -Tylenol as needed for fevers Skin/MSK: #Deep tissue injury Patient has deep tissue injury to right upper back. -bandaged #Stage two pressure ulcer Patient has stage 2 pressure ulcer to right buttock. -bandaged ICU Health maintenance: Mechanical ventilation: Yes Sedation:Yes Diet: Tube feeds via PEG DVT ppx: Heparin GI ppx: Protonix Godinez: No IV lines: Peripheral IVs Central line: Femoral tri-flow Arterial line: No Code status: Limited Code: No compressions Plan of care discussed with attending Dr. Avila. Jayjay Malagon MD PGY-1
--- NOTE | 2024-06-06 14:46 | PD.RESPRO ---
Documentation for date of: 06/06/24 Subjective Subjective Interval history: The patient is a 73-year-old male with previous medical history of CVA, severe cognitive deficit, chronic PEG tube and tracheostomy placement, hyperlipidemia, diabetes mellitus, recurrent UTIs, depression, anxiety, upper extremity bilateral DVT who is a subacute facility resident. He was brought to the hospital due to constipation and abdominal distention for 5 days. Earlier he had similar problems and received enema, had a bowel movement and was transferred back to the facility. He had a manual disimpaction and copious amount of soft stools was evacuated by Dr. Cramer. Rectal tube was placed. Later in admission patient had developed fever, became tachycardic, tachypneic. Imaging showed bilateral pneumonia with continued to worsen, he was started on fluids. He was not able to maintain MAP more than 65, was started on Levophed. Also, EKG showed A-fib with RVR and was started on amiodarine drip. He continued to have multiple bowel movements. His labs showed hypokalemia and hypernatremia. His labs throughout admissionshowed uptrending WBC, hypernatremia, persistent hypokalemia and rapidly declining kidney functions. ICU team had a conversation with patient's family over regarding goals of care, patient's family decided to proceed with full treatment but not to proceed with chest compressions in case of cardiac arrest, patient is limited code. Data Conversion Developer Dr. Reed was consulted due to ZACH and electrolyte abnormalities treaent and management. 06/05/2024: Patient was seen and examined by the bedside in the ICU. Saturating in the low 90s on FiO2 70%. Continues to require Levophed support. Labs showed sodium 151, potassium 2.9, chloride 113, bicarb 21.3, BUN 57, creatinine 3.2, EGFR 20, glucose 122, corrected calcium 8.4, AST 209, ALT 78, albumin 2.4. Due to hemodynamic instability and patient continuing to require Levophed, will hold off dialysis for today and will try to correct the electrolyte abnormalities and start free water flushes at 100 mL/h. Repeat renal panel showed sodium 150, potassium 3.5, chloride 113, BUN 58, creatinine 3.4, EGFR 18. 06/06/2024: Patient seen and examined at the bedside in the ICU. Today patient opens eyes to the verbal stimulation, but does not follow the objects or follow commands, continues to have rotatory nystagmus and left-sided gaze fixation. Yesterday patient's family decided to proceed with dialysis, dialysis treatment was ended early due to catheter not functioning, after attempting a bowel flush both ports remains sluggish. Dialysis session was stopped. Blood in the arterial line returned but blood and the venous line clotted was unable to return. CBC stat showed hemoglobin 7.3, hemoglobin earlier this day was 8.0. Today patient had a repeat dialysis session, 1 L of fluid was removed. A.m. labs showed hemoglobin 7.4, hematocrit 21.2, platelets 45, INR 1.4, fibrinogen 515, D-dimer more than 3820. Sodium 143, potassium 3.0, BUN 39, creatinine 2.1, lactic acid 3.4. Exam Vital Signs Temp Pulse Resp BP Pulse Ox O2 Del Method O2 Flow Rate 98.2 F 123 H 28 H 102/65 95 Mechanical Ventilation 2 06/06/24 11:45 06/06/24 14:30 06/06/24 14:30 06/06/24 14:30 06/06/24 14:30 06/06/24 14:30 06/06/24 14:00 FiO2 90 06/06/24 14:30 Narrative Exam Gen: Chronically ill-appearing elderly male. HEENT: NCAT, PERRLA, anicteric conjunctivae. Left sided gaze fixation with rotatory nystagmus. CVS: normal S1 and S2. RRR. No M/R/G. Resp: CTA B/L. No rhonchi, rales, crackles or wheezing. Abd: soft, non-tender, non-distended. BS decreased. G-tube site unremarkable. MSK: 2+ lower extremity edema. Neuro: Constant right foot myoclonus. Alert and oriented x0. Left sided gaze fixation with rotatory nystagmus. Psych: impossible to assess. Objective Labs 06/06/24 05:15 06/06/24 10:24 Labs: Laboratory Results - last 24 hr 06/05/24 06/06/24 06/06/24 18:08 05:15 10:24 WBC 15.8 H 14.9 H RBC 2.59 L 2.57 L Hgb 7.3 L 7.4 L Hct 21.6 L* 21.2 L* MCV 83 83 MCH 28.2 28.8 MCHC 33.8 34.9 RDW Std Deviation 49.1 H 47.7 H Plt Count 54 L D 45 L Neut % (Auto) 94 H 93 H Lymph % (Auto) 2 L 3 L [place] % (Auto) 2 3 Eos % (Auto) 1 0 Baso % (Auto) 0 0 Neut # (Auto) 14.9 H 13.9 H Lymph # (Auto) 0.4 L 0.4 L [place] # (Auto) 0.4 0.4 Eos # (Auto) 0.1 0.1 Baso # (Auto) 0.0 0.0 Immature Gran # (Auto) 0.11 H 0.12 H Absolute Nucleated RBC 0.03 H 0.03 H Immature Gran % 1 H 1 H Nucleated RBC % 0 0 PT 14.5 H INR 1.4 H APTT 49.0 H Fibrinogen 515 H D-Dimer > 3820 H VBG pH 7.35 VBG pCO2 46 D VBG pO2 52 VBG O2 Sat (Lo) 82 L D VBG Base Excess 0 Sodium 147 H 143 Potassium 2.6 L* D 3.0 L Chloride 110 H 107 Carbon Dioxide 21.3 25.1 Anion Gap 16 11 BUN 68 H 39 H Creatinine 3.7 H 2.1 H D Estim Creat Clear Calc 14.9 L 25.9 L eGFR 17 L 33 L BUN/Creatinine Ratio 18 19 Glucose 84 88 Calculated Osmolality 311 H 293 Calcium 7.3 L 8.8 D Corrected Calcium 8.3 L Phosphorus 5.7 H Magnesium 2.2 Total Bilirubin 1.5 H D AST 303 H ALT 120 H Alkaline Phosphatase 213 H D Total Protein 4.6 L Albumin 2.8 L Globulin 1.8 L Albumin/Globulin Ratio 1.6 TSH 3.37 Misc Test Result Platelets confirmed Platelets confirmed ABG Interpretation ABG results: 05/31/24 05/31/24 05/31/24 09:33 14:33 16:21 ABG pH 7.25 L 7.18 L* 7.30 L D ABG pCO2 68 H 78 H* D 57 H D ABG pO2 88 124 H D 69 L D ABG HCO3 30 H 29 H 28 H ABG O2 Saturation 96 99 H 94 ABG Base Excess 2 -1 1 VBG pH VBG pCO2 VBG pO2 VBG Base Excess 06/01/24 06/02/24 06/04/24 07:51 18:15 16:07 ABG pH 7.49 H D 7.47 H ABG pCO2 37 D 44 ABG pO2 49 L* D 48 L* ABG HCO3 28 H 32 H ABG O2 Saturation 89 L 86 L ABG Base Excess 5 H 7 H VBG pH 7.45 VBG pCO2 31 L VBG pO2 64 H VBG Base Excess -2 06/06/24 10:24 ABG pH ABG pCO2 ABG pO2 ABG HCO3 ABG O2 Saturation ABG Base Excess VBG pH 7.35 VBG pCO2 46 D VBG pO2 52 VBG Base Excess 0 Quality Measures Quality Measures VTE prophylaxis Advance care planning discussed with:: other Assessment & Plan Assessment Current Active Medications: Generic Name Dose Route Start Last Admin Trade Name Freq PRN Reason Stop Dose Admin Acetaminophen 650 mg 06/04/24 15:09 06/04/24 16:40 Acetaminophen Lindsey 325 Mg/10 Ml Udc GT 07/04/24 15:08 650 mg Q6HR PRN Administration Pain Or Fever > 100.4 Albuterol/Ipratropium 3 ml 06/04/24 15:33 Albuterol/Ipratropium (Duoneb) Rt Lindsey 3 Ml Nebu INH 07/04/24 15:32 Q2HR PRN SHORTNESS OF BREATH OR WHEEZE Amiodarone HCl 200 mg 06/05/24 21:00 06/06/24 08:23 Amiodarone Hcl 200 Mg Tablet GT 07/05/24 20:59 200 mg BID XOCHITL Administration Calcium Acetate 667 mg 06/04/24 18:45 06/06/24 11:28 Calcium Acetate 667 Mg Tablet PO 07/04/24 18:44 667 mg TIDWM XOCHITL Administration Dextrose 25 ml 06/04/24 15:32 Dextrose 50%-Water Inj 50 Ml Syringe IV 07/04/24 15:31 Q15MIN PRN BG 50-70 responsive npo pt Dextrose 50 ml 06/04/24 15:32 Dextrose 50%-Water Inj 50 Ml Syringe IV 07/04/24 15:31 Q15MIN PRN BG <50 OR BG <70 & pt unresponsive Heparin Sodium (Porcine) 5,000 unit 06/04/24 22:00 06/06/24 06:18 Heparin Sod Inj 5000 Unit/Ml Vial SC 06/18/24 21:59 5,000 unit Q8HR XOCHITL Administration Heparin Sodium (Porcine) 2,200 unit 06/05/24 17:03 06/06/24 11:19 Heparin Sod Inj 1000 Unit/Ml Vial 10 Ml INDWELLCAT 06/19/24 17:02 2,200 unit PRN PRN Administration DIALYSIS Norepinephrine/Dextrose 8 mg in 250 mls @ 6.572 mls/hr 06/03/24 11:37 06/06/24 14:34 Levophed In D5w 8mg/250ml IV 07/03/24 11:36 0.09 mcg/kg/min .Q24H PRN 11.829 mls/hr PER PROTOCOL Titration Protocol 0.05 MCG/KG/MIN Levofloxacin/Dextrose 500 mg in 100 mls @ 100 mls/hr 06/06/24 18:30 Levaquin Ivpb IV 06/13/24 18:29 Q48H XOCHITL Albumin Human 25 gm in 100 mls @ 100 mls/min 06/05/24 17:05 06/06/24 10:13 Albuminar-25 Ivpb IV 100 mls/min PRN PRN Administration DIALYSIS Fentanyl Citrate 2,500 mcg in 250 mls @ 2.5 mls/hr 06/06/24 08:54 06/06/24 14:00 Sublimaze Inj 2,500 Mcg/250 Ml Bag IV 06/11/24 08:53 25 mcg/hr .Q24H PRN 2.5 mls/hr PER PROTOCOL Titration Protocol 25 MCG/HR Propofol 1,000 mg in 100 mls @ 2.025 mls/hr 06/06/24 08:55 06/06/24 14:00 Diprivan Ivpb IV 07/06/24 08:54 25 mcg/kg/min .Q24H PRN 10.125 mls/hr PER PROTOCOL Titration Protocol 5 MCG/KG/MIN Insulin Human Regular 0 unit 06/04/24 18:00 06/06/24 11:08 Insulin Hum Regular 1 Unit/0.01 Ml (Per Unit) SC 07/04/24 17:59 Not Given Q6HR XOCHITL Protocol Lactulose 20 gm 06/06/24 09:00 06/06/24 11:28 Lactulose Syrup 20 Gm/30 Ml Udc PO 07/06/24 08:59 20 gm QDAY XOCHITL Administration Protocol Pantoprazole Sodium 40 mg 06/04/24 15:30 06/06/24 11:28 Pantoprazole Inj 40 Mg Vial IVP 07/04/24 15:29 40 mg QDAY XOCHITL Administration Pharmacy Consult 1 each 06/04/24 18:24 Pharmacy Renal Dose Adjustment 1 Ea XX 07/04/24 18:23 PRN PRN CONSULT Plan The patient is a 73-year-old male with previous medical history of CVA, severe cognitive deficit, chronic PEG tube and tracheostomy placement, hyperlipidemia, diabetes mellitus, recurrent UTIs, depression, anxiety, upper extremity bilateral DVT who is a subacute facility resident. He was brought to the hospital due to constipation and abdominal distention for 5 days. He also developed pneumonia and acute on chronic respiratory failure. His labs showed hypokalemia and hypernatremia. His labs throughout admissionshowed uptrending WBC, hypernatremia, persistent hypokalemia and rapidly declining kidney functions. Data Conversion Developer Dr. Reed was consulted due to ZACH and electrolyte abnormalities treaent and management. #ZACH - ATN #Hypokalemia #Hypernatremia, resolved Most likely due to ATN in the setting of septic shock. At the moment, due to hemodynamic instability patient is not a candidate for dialysis. Plan: ?Replete electrolytes as necessary ? Monitor daily CMP ? Avoid nephrotoxic agents ? Renally dose medications - Continue with hemodialysis as needed #Acute encephalopathy #CVA with residual deficits #New onset of A-fib #Shock #Acute on chronic hypoxic respiratory failure #ARDS #Severe bilateral pneumonia #Large bowel obstruction improving #Hypokalemia #Leukocytosis #Normocytic anemia #Bacterial pneumonia #Muscle atrophy - management as per primary Plan of care discussed with attending Dr. Reed. Cuca Kaplan MD, PGY 1. Attending Provider Attestation/Addendum patient seen and examined with resident physician Dr. Thurman. Note reviewed, agree with findings and recommendations. Patient currently seen in ICU. Currently on ventilator. Patient was on comfort care and family decided on full CODE STATUS. Requesting dialysis if needed. No urine output. Azotemia worsened. Electrolyte seems to be abnormal. Decided to proceed with dialysis. Vas-Cath placed by underground conduit installer. Blood pressure still remains low. Family wants to try. On pressors. 06/06/2024 overnight catheter was flushed with tPA. This morning patient urine output is minimal. Decided to proceed with dialysis Patient remains in ICU. On ventilator. On pressors. Hemodialysis for 2.5 hours, blood flow 200, 3K, ultrafiltration 1 L, Epogen 6000, no heparin ordered. Prognosis remains guarded. Plan of care discussed with ICU team
[2024-06-06] MEDS: LEVOFLOXACIN/D5W 500 MG IVPB 500 MG/100 ML BAG 100 MG IV (18:17)
[2024-06-06] MEDS: PROPOFOL 1,000 MG IVPB 1,000 MG/100 ML VIAL 10.125 MG IV (18:18)
[2024-06-06] MEDS: Norepinephrine/D5W 8mg/250ml 8 MG/250 ML BAG 17.087 MG IV (22:52)
[2024-06-07] VITALS (116 sets, daily range): BP systolic 70–133; BP diastolic 39–69; PULSE 74–140; RESP 18–30; TEMP 35.9–37.1; O2SAT 83–100; BMI 29.7
[2024-06-07] MEDS: PROPOFOL 1,000 MG IVPB 1,000 MG/100 ML VIAL 10.125 MG IV ×3 (04:25→20:09)
[2024-06-07 05:28] LABS: Base Excess -3 (-3-3); HCO3 23 mEq/L (20-26); Inspired Oxygen, FIO2 85 %; O2 Saturation 83 % (91-98); PCO2 47 mmHg (32.0-48.0)
[2024-06-07 05:33] LABS: Allen Test Performed/OK; Puncture Site Right Radial
[2024-06-07 05:34] LABS: PO2 56 mmHg (83-108)
--- NOTE | 2024-06-07 06:00 | XR_ITS ---
Examination: AP chest single view Technique one AP portable upright chest single view Exam date and time: June 07, 2024 0501 hrs. Comparison June 04, 2024 Indications: Hypoxic respiratory failure, pneumonia ARDS on earlier chest imaging Findings: Severe bilateral lung opacity, worse compared to prior study Tracheostomy tube tip 6.3 cm above delmy Mild enlargement cardiac contour No pneumothorax Impression: Worsening severe bilateral pneumonia ARDS pattern
[2024-06-07] MEDS: INSULIN HUM REGULAR 1 UNIT/0.01 ML (PER UNIT) SC ×3 (06:30→18:16)
[2024-06-07 06:39] LABS: Alanine Aminotransferase 99 U/L (10-49); Albumin, Serum 2.6 gm/dL (3.4-4.8); Albumin/Globulin Ratio 1.5 (1.2-2.2); Alkaline Phosphatase 188 U/L (46-116); Anion Gap 15 (7-16); Aspartate Amino Transferase 167 U/L (0-34); BUN/Creatinine Ratio 17 Ratio (12-20); Bilirubin,Total 1.7 mg/dL (0.3-1.2); Blood Urea Nitrogen 54 mg/dL (9-23); Calcium 7.5 mg/dL (8.3-10.6); Calcium (Corrected) 8.6 mg/dL (8.5-10.1); Carbon Dioxide 19.7 mMol/L (20.0-31.0); Chloride 106 mMol/L (98-107); Creatinine (Component) 3.2 mg/dL (0.6-1.3); Globulin 1.7 gm/dL (2.3-3.5); Glucose 124 mg/dL (74-106); Magnesium 2.1 mg/dL (1.6-2.6); Osmolality,Calculated 296 (275-295); Phosphorous 4.6 mg/dL (2.4-5.1); Potassium 3.5 mMol/L (3.4-5.1); Sodium 141 mMol/L (136-145); Thyroid Stimulating Hormone 5.87 uIU/mL (0.55-4.78); Total Protein 4.3 gm/dL (5.7-8.2); eGFR 20 See Note
--- NOTE | 2024-06-07 08:12 | PC.NURSE ---
[employer] Director at bedside, updated current vital signs, per MD, still wants HD stating to use Levo drip for BP.
[2024-06-07 08:20] LABS: Basophils % (Auto) 0 % (0-2.5); Eosinophils # (Auto) 0.3 Thou/mm3 (0.0-0.5); Eosinophils % (Auto) 2 % (0-10); Immature Granulocytes % (Auto) 1 % (0-0); Immature Granulocytes Auto 0.12 Thou/mm3 (0.00-0.00); Lymphocytes # (Auto) 0.5 Thou/mm3 (1.0-4.8); Lymphocytes % (Auto) 4 % (10-50); Mean Corpuscular HGB Conc 35.3 g/dl (31.0-37.0); Mean Corpuscular Hemoglobin 29.1 pg (25.0-35.0); Mean Corpuscular Volume 82 fL (80-100); Monocytes # (Auto) 0.4 Thou/mm3 (0.0-0.8); Monocytes % (Auto) 3 % (0-12); Neutrophils # (Auto) 12.9 Thou/mm3 (1.8-7.7); Neutrophils % (Auto) 91 % (37-80); Nucleated Red Blood Cell # 0.06 Thou/mm3 (0.00-0.00); Nucleated Red Blood Cell % 0 /100 WBC (0); RDW Standard Deviation 49.1 fL (35.1-43.9); Red Blood Count 2.27 Miln/mm3 (4.50-5.90); White Blood Count 14.2 Thou/mm3 (3.8-10.6)
[2024-06-07] MEDS: ALBUMIN HUMAN 25% IVPB 25 GM/100 ML BTL IV (08:27)
--- NOTE | 2024-06-07 08:33 | PC.NURSE ---
SPB dropped to 70's, arterial pressure unstable, lowered BFR to 100, flushed circuit and dialysis catheter with NS without success. Blood clot noted to both dialysis lines and venous chamber. MD Reed at bedside, updated, per MD Reed terminate treatment.
[2024-06-07] MEDS: CALCIUM ACETATE 667 MG TABLET PO ×3 (08:34→18:00)
[2024-06-07] MEDS: AMIODARONE HCL 200 MG TABLET GT ×2 (08:34→21:12)
[2024-06-07] MEDS: LACTULOSE SYRUP 20 GM/30 ML UDC PO (08:34)
[2024-06-07] MEDS: PANTOPRAZOLE INJ 40 MG VIAL IVP (08:34)
[2024-06-07 08:41] LABS: Hematocrit 18.7 % (41.0-53.0); Hemoglobin 6.6 g/dL (13.5-16.0)
[2024-06-07] MEDS: HEPARIN SOD INJ 1000 UNIT/ML VIAL 10 ML 2200 UNIT INDWELLCAT (08:55)
[2024-06-07 09:27] LABS: Basophils % (Auto) 0 % (0-2.5); Eosinophils # (Auto) 0.4 Thou/mm3 (0.0-0.5); Eosinophils % (Auto) 2 % (0-10); Immature Granulocytes % (Auto) 1 % (0-0); Immature Granulocytes Auto 0.11 Thou/mm3 (0.00-0.00); Lymphocytes # (Auto) 0.6 Thou/mm3 (1.0-4.8); Lymphocytes % (Auto) 4 % (10-50); Mean Corpuscular HGB Conc 34.8 g/dl (31.0-37.0); Mean Corpuscular Hemoglobin 28.8 pg (25.0-35.0); Mean Corpuscular Volume 83 fL (80-100); Monocytes # (Auto) 0.4 Thou/mm3 (0.0-0.8); Monocytes % (Auto) 3 % (0-12); Neutrophils # (Auto) 13.5 Thou/mm3 (1.8-7.7); Neutrophils % (Auto) 90 % (37-80); Nucleated Red Blood Cell # 0.04 Thou/mm3 (0.00-0.00); Nucleated Red Blood Cell % 0 /100 WBC (0); RDW Standard Deviation 49.9 fL (35.1-43.9); Red Blood Count 2.26 Miln/mm3 (4.50-5.90)
[2024-06-07] MEDS: EPOETIN ALFA-EPBX INJ 10,000 UNIT/ML VIAL (ESRD) 10000 UNIT SC (09:29)
[2024-06-07 09:40] LABS: Hematocrit 18.7 % (41.0-53.0)
--- NOTE | 2024-06-07 09:40 | PD.RESPRO ---
Documentation for date of: 06/07/24 Subjective Subjective Interval history: The patient is a 73-year-old male with previous medical history of CVA, severe cognitive deficit, chronic PEG tube and tracheostomy placement, hyperlipidemia, diabetes mellitus, recurrent UTIs, depression, anxiety, upper extremity bilateral DVT who is a subacute facility resident. He was brought to the hospital due to constipation and abdominal distention for 5 days. Earlier he had similar problems and received enema, had a bowel movement and was transferred back to the facility. He had a manual disimpaction and copious amount of soft stools was evacuated by Dr. Cramer. Rectal tube was placed. Later in admission patient had developed fever, became tachycardic, tachypneic. Imaging showed bilateral pneumonia with continued to worsen, he was started on fluids. He was not able to maintain MAP more than 65, was started on Levophed. Also, EKG showed A-fib with RVR and was started on amiodarine drip. He continued to have multiple bowel movements. His labs showed hypokalemia and hypernatremia. His labs throughout admissionshowed uptrending WBC, hypernatremia, persistent hypokalemia and rapidly declining kidney functions. ICU team had a conversation with patient's family over regarding goals of care, patient's family decided to proceed with full treatment but not to proceed with chest compressions in case of cardiac arrest, patient is limited code. Tool Room Attendant Dr. Reed was consulted due to ZACH and electrolyte abnormalities treaent and management. 06/05/2024: Patient was seen and examined by the bedside in the ICU. Saturating in the low 90s on FiO2 70%. Continues to require Levophed support. Labs showed sodium 151, potassium 2.9, chloride 113, bicarb 21.3, BUN 57, creatinine 3.2, EGFR 20, glucose 122, corrected calcium 8.4, AST 209, ALT 78, albumin 2.4. Due to hemodynamic instability and patient continuing to require Levophed, will hold off dialysis for today and will try to correct the electrolyte abnormalities and start free water flushes at 100 mL/h. Repeat renal panel showed sodium 150, potassium 3.5, chloride 113, BUN 58, creatinine 3.4, EGFR 18. 06/06/2024: Patient seen and examined at the bedside in the ICU. Today patient opens eyes to the verbal stimulation, but does not follow the objects or follow commands, continues to have rotatory nystagmus and left-sided gaze fixation. Yesterday patient's family decided to proceed with dialysis, dialysis treatment was ended early due to catheter not functioning, after attempting a bowel flush both ports remains sluggish. Dialysis session was stopped. Blood in the arterial line returned but blood and the venous line clotted was unable to return. CBC stat showed hemoglobin 7.3, hemoglobin earlier this day was 8.0. Today patient had a repeat dialysis session, 1 L of fluid was removed. A.m. labs showed hemoglobin 7.4, hematocrit 21.2, platelets 45, INR 1.4, fibrinogen 515, D-dimer more than 3820. Sodium 143, potassium 3.0, BUN 39, creatinine 2.1, lactic acid 3.4. 06/07/2024: Patient seen and examined at bedside in ICU, unable to tolerate dialysis, patient was given IV albumin, blood pressure does not tolerate dialysis treatment. Patient was able to complete dialysis yesterday, had about 804 mL removed, was given 1 unit of IV albumin. Patient's labs reviewed, show WBC 14.2, RBC 2.27, hemoglobin 6.6, hematocrit 18.7, platelet count 20,000, sodium 141, potassium 3.5, bicarb 19.7, BUN 54, creatinine 3.2, GFR 20, total bilirubin 1.7 AST 167 ALT 99, alk phos 188. Patient has poor prognosis, is unable to tolerate dialysis, recommended ICU team to discuss goals of care with family. Exam Vital Signs Temp Pulse Resp BP Pulse Ox O2 Del Method O2 Flow Rate 97.7 F 87 28 H 88/39 L 92 L Mechanical Ventilation 2 06/07/24 08:00 06/07/24 09:00 06/07/24 09:00 06/07/24 09:00 06/07/24 09:00 06/07/24 09:00 06/06/24 14:00 FiO2 85 06/07/24 09:00 Narrative Exam Gen: Chronically ill-appearing elderly male. HEENT: NCAT, PERRLA, anicteric conjunctivae. Left sided gaze fixation with rotatory nystagmus. CVS: normal S1 and S2. RRR. No M/R/G. Resp: CTA B/L. No rhonchi, rales, crackles or wheezing. Abd: soft, non-tender, non-distended. BS decreased. G-tube site unremarkable. MSK: 2+ lower extremity edema. Neuro: Constant right foot myoclonus. Alert and oriented x0. Left sided gaze fixation with rotatory nystagmus. Psych: impossible to assess. Objective Labs 06/07/24 09:00 06/07/24 05:17 Labs: Laboratory Results - last 24 hr 06/06/24 06/06/24 06/07/24 05:15 10:24 05:12 WBC RBC Hgb Hct MCV MCH MCHC RDW Std Deviation Neut % (Auto) Lymph % (Auto) [place] % (Auto) Eos % (Auto) Baso % (Auto) Neut # (Auto) Lymph # (Auto) [place] # (Auto) Eos # (Auto) Baso # (Auto) Immature Gran # (Auto) Absolute Nucleated RBC Immature Gran % Nucleated RBC % Fibrinogen 515 H Puncture Site Right Radial ABG pH 7.30 L ABG pCO2 47 ABG pO2 56 L* ABG HCO3 23 ABG O2 Saturation 83 L ABG Base Excess -3 VBG pH 7.35 VBG pCO2 46 D VBG pO2 52 VBG O2 Sat (Lo) 82 L D VBG Base Excess 0 FiO2 85 Sodium 143 Potassium 3.0 L Chloride 107 Carbon Dioxide 25.1 Anion Gap 11 BUN 39 H Creatinine 2.1 H D Estim Creat Clear Calc 25.9 L eGFR 33 L BUN/Creatinine Ratio 19 Glucose 88 Calculated Osmolality 293 Calcium 8.8 D Corrected Calcium Phosphorus Magnesium Total Bilirubin AST ALT Alkaline Phosphatase Total Protein Albumin Globulin Albumin/Globulin Ratio TSH 3.37 06/07/24 06/07/24 05:17 08:07 WBC 14.2 H RBC 2.27 L Hgb 6.6 L* Hct 18.7 L* MCV 82 MCH 29.1 MCHC 35.3 RDW Std Deviation 49.1 H Neut % (Auto) 91 H Lymph % (Auto) 4 L [place] % (Auto) 3 Eos % (Auto) 2 Baso % (Auto) 0 Neut # (Auto) 12.9 H Lymph # (Auto) 0.5 L [place] # (Auto) 0.4 Eos # (Auto) 0.3 Baso # (Auto) 0.0 Immature Gran # (Auto) 0.12 H Absolute Nucleated RBC 0.06 H Immature Gran % 1 H Nucleated RBC % 0 Fibrinogen Puncture Site ABG pH ABG pCO2 ABG pO2 ABG HCO3 ABG O2 Saturation ABG Base Excess VBG pH VBG pCO2 VBG pO2 VBG O2 Sat (Lo) VBG Base Excess FiO2 Sodium 141 Potassium 3.5 D Chloride 106 Carbon Dioxide 19.7 L Anion Gap 15 BUN 54 H Creatinine 3.2 H D Estim Creat Clear Calc 17.0 L eGFR 20 L BUN/Creatinine Ratio 17 Glucose 124 H Calculated Osmolality 296 H Calcium 7.5 L Corrected Calcium 8.6 Phosphorus 4.6 Magnesium 2.1 Total Bilirubin 1.7 H AST 167 H ALT 99 H Alkaline Phosphatase 188 H D Total Protein 4.3 L Albumin 2.6 L Globulin 1.7 L Albumin/Globulin Ratio 1.5 TSH 5.87 H D ABG Interpretation ABG results: 05/31/24 05/31/24 05/31/24 09:33 14:33 16:21 ABG pH 7.25 L 7.18 L* 7.30 L D ABG pCO2 68 H 78 H* D 57 H D ABG pO2 88 124 H D 69 L D ABG HCO3 30 H 29 H 28 H ABG O2 Saturation 96 99 H 94 ABG Base Excess 2 -1 1 VBG pH VBG pCO2 VBG pO2 VBG Base Excess 06/01/24 06/02/24 06/04/24 07:51 18:15 16:07 ABG pH 7.49 H D 7.47 H ABG pCO2 37 D 44 ABG pO2 49 L* D 48 L* ABG HCO3 28 H 32 H ABG O2 Saturation 89 L 86 L ABG Base Excess 5 H 7 H VBG pH 7.45 VBG pCO2 31 L VBG pO2 64 H VBG Base Excess -2 06/06/24 06/07/24 10:24 05:12 ABG pH 7.30 L ABG pCO2 47 ABG pO2 56 L* ABG HCO3 23 ABG O2 Saturation 83 L ABG Base Excess -3 VBG pH 7.35 VBG pCO2 46 D VBG pO2 52 VBG Base Excess 0 Quality Measures Quality Measures VTE prophylaxis Advance care planning discussed with:: patient Assessment & Plan Assessment Current Active Medications: Generic Name Dose Route Start Last Admin Trade Name Freq PRN Reason Stop Dose Admin Acetaminophen 650 mg 06/04/24 15:09 06/04/24 16:40 Acetaminophen Lindsey 325 Mg/10 Ml Udc GT 07/04/24 15:08 650 mg Q6HR PRN Administration Pain Or Fever > 100.4 Albuterol/Ipratropium 3 ml 06/04/24 15:33 Albuterol/Ipratropium (Duoneb) Rt Lindsey 3 Ml Nebu INH 07/04/24 15:32 Q2HR PRN SHORTNESS OF BREATH OR WHEEZE Amiodarone HCl 200 mg 06/05/24 21:00 06/07/24 08:34 Amiodarone Hcl 200 Mg Tablet GT 07/05/24 20:59 200 mg BID XOCHITL Administration Calcium Acetate 667 mg 06/04/24 18:45 06/07/24 08:34 Calcium Acetate 667 Mg Tablet PO 07/04/24 18:44 667 mg TIDWM XOCHITL Administration Dextrose 25 ml 06/04/24 15:32 Dextrose 50%-Water Inj 50 Ml Syringe IV 07/04/24 15:31 Q15MIN PRN BG 50-70 responsive npo pt Dextrose 50 ml 06/04/24 15:32 Dextrose 50%-Water Inj 50 Ml Syringe IV 07/04/24 15:31 Q15MIN PRN BG <50 OR BG <70 & pt unresponsive Epoetin Baljinder 10,000 unit 06/07/24 10:00 06/07/24 09:29 Epoetin Baljinder-Epbx Inj 10,000 Unit/Ml Vial (Esrd) [place] 06/07/24 10:01 10,000 unit X1 ONE Administration Heparin Sodium (Porcine) 5,000 unit 06/04/24 22:00 06/06/24 06:18 Heparin Sod Inj 5000 Unit/Ml Vial SC 06/18/24 21:59 5,000 unit Q8HR XOCHITL Administration Heparin Sodium (Porcine) 2,200 unit 06/05/24 17:03 06/07/24 08:55 Heparin Sod Inj 1000 Unit/Ml Vial 10 Ml INDWELLCAT 06/19/24 17:02 2,200 unit PRN PRN Administration DIALYSIS Norepinephrine/Dextrose 8 mg in 250 mls @ 6.572 mls/hr 06/03/24 11:37 06/07/24 08:45 Levophed In D5w 8mg/250ml IV 07/03/24 11:36 0.17 mcg/kg/min .Q24H PRN 22.344 mls/hr PER PROTOCOL Titration Protocol 0.05 MCG/KG/MIN Levofloxacin/Dextrose 500 mg in 100 mls @ 100 mls/hr 06/06/24 18:30 06/06/24 18:17 Levaquin Ivpb IV 06/13/24 18:29 100 mls/hr Q48H XOCHITL Administration Albumin Human 25 gm in 100 mls @ 100 mls/min 06/05/24 17:05 06/07/24 08:32 Albuminar-25 Ivpb IV Infused PRN PRN Infusion DIALYSIS Fentanyl Citrate 2,500 mcg in 250 mls @ 2.5 mls/hr 06/06/24 08:54 06/07/24 08:00 Sublimaze Inj 2,500 Mcg/250 Ml Bag IV 06/11/24 08:53 25 mcg/hr .Q24H PRN 2.5 mls/hr PER PROTOCOL Titration Protocol 25 MCG/HR Propofol 1,000 mg in 100 mls @ 2.025 mls/hr 06/06/24 08:55 06/07/24 08:00 Diprivan Ivpb IV 07/06/24 08:54 25 mcg/kg/min .Q24H PRN 10.125 mls/hr PER PROTOCOL Titration Protocol 5 MCG/KG/MIN Insulin Human Regular 0 unit 06/04/24 18:00 06/07/24 06:30 Insulin Hum Regular 1 Unit/0.01 Ml (Per Unit) SC 07/04/24 17:59 1 unit Q6HR XOCHITL Administration Protocol Lactulose 20 gm 06/06/24 09:00 06/07/24 08:34 Lactulose Syrup 20 Gm/30 Ml Udc PO 07/06/24 08:59 20 gm QDAY XOCHITL Administration Protocol Pantoprazole Sodium 40 mg 06/04/24 15:30 06/07/24 08:34 Pantoprazole Inj 40 Mg Vial IVP 07/04/24 15:29 40 mg QDAY XOCHITL Administration Pharmacy Consult 1 each 06/04/24 18:24 Pharmacy Renal Dose Adjustment 1 Ea XX 07/04/24 18:23 PRN PRN CONSULT Plan The patient is a 73-year-old male with previous medical history of CVA, severe cognitive deficit, chronic PEG tube and tracheostomy placement, hyperlipidemia, diabetes mellitus, recurrent UTIs, depression, anxiety, upper extremity bilateral DVT who is a subacute facility resident. He was brought to the hospital due to constipation and abdominal distention for 5 days. He also developed pneumonia and acute on chronic respiratory failure. His labs showed hypokalemia and hypernatremia. His labs throughout admissionshowed uptrending WBC, hypernatremia, persistent hypokalemia and rapidly declining kidney functions. Tool Room Attendant Dr. Reed was consulted due to ZACH and electrolyte abnormalities treaent and management. #ZACH - ATN #Hypokalemia #Hypernatremia, resolved Most likely due to ATN in the setting of septic shock. Patient unable to tolerate dialysis, hypotensive during treatment. Plan: -Patient unable to tolerate dialysis today, patient's blood pressure drops during treatment. -Recommended ICU team to discuss goals of care with family due to worsening patient's condition and inability to tolerate dialysis. ?Replete electrolytes as necessary ?Monitor daily CMP ?Avoid nephrotoxic agents ?Renally dose medications #Acute encephalopathy #CVA with residual deficits #New onset of A-fib #Shock #Acute on chronic hypoxic respiratory failure #ARDS #Severe bilateral pneumonia #Large bowel obstruction improving #Hypokalemia #Leukocytosis #Normocytic anemia #Bacterial pneumonia #Muscle atrophy - management as per primary Plan of care discussed with attending Dr. Reed. Tex Taylor, PGY 1. Attending Provider Attestation/Addendum patient seen and examined with resident physician Dr. Thurman. Note reviewed, agree with findings and recommendations. Patient currently seen in ICU. Currently on ventilator. Patient was on comfort care and family decided on full CODE STATUS. Requesting dialysis if needed. No urine output. Azotemia worsened. Electrolyte seems to be abnormal. Decided to proceed with dialysis. Vas-Cath placed by client program manager. Blood pressure still remains low. Family wants to try. On pressors. 06/07/2024 patient still remains azotemic with significantly decreased urine output. Try to attempt at dialysis. Patient remains in ICU. On ventilator. On pressors. Hemodialysis for 2.5 hours, blood flow 200, 3K, ultrafiltration 1 L, Epogen 6000, no heparin ordered. However within 10 minutes into dialysis patient's blood pressure dropped, heart rate increased. Despite giving albumin and sodium modeling unable to proceed with dialysis. Dialysis stopped. Patient not able to tolerate dialysis. Prognosis remains guarded. Plan of care discussed with ICU team-to discuss goals of care with family.-
[2024-06-07 09:41] LABS: Hemoglobin 6.5 g/dL (13.5-16.0); Platelet Count 21 Thou/mm3 (140-440)
[2024-06-07 09:42] LABS: Platelet Count 20 Thou/mm3 (140-440); Slide Review Platelets confirmed
[2024-06-07 09:43] LABS: Path Review Blood Smear Sent to Pathologist
[2024-06-07 09:45] LABS: Slide Review Platelets confirmed
--- NOTE | 2024-06-07 10:56 | PD.RESPRO ---
Documentation for date of: 06/07/24 Subjective Subjective Interval history: Patient was seen at bedside this morning. Clinically unchanged. Patient continues to be in A-fib overnight Patient was given a bolus of amiodarone. Recommend to continue amiodarone 200 mg twice daily. Recommend to start Eliquis 5 mg twice daily if no contraindications. Recommend ICU team to have goals of care discussion with family. Potassium 3.2 today, magnesium 2.1 today, recommend to keep potassium and magnesium above 4 and 2 respectively to avoid any further arrhythmias Kidney function continues to decline with creatinine 3.2 and BUN 54, patient is currently receiving hemodialysis. Patient is on pressors and sedation Platelets dropped to 21. Exam Vital Signs Temp Pulse Resp BP Pulse Ox O2 Del Method O2 Flow Rate 97.7 F 86 28 H 118/60 95 Mechanical Ventilation 2 06/07/24 08:00 06/07/24 09:48 06/07/24 09:45 06/07/24 09:48 06/07/24 09:48 06/07/24 09:45 06/06/24 14:00 FiO2 85 06/07/24 09:48 Narrative Exam General: Nonverbal and unresponsive. Eyes: Pupils were difficult to assess due to cataracts Ears: No visible ear discharge Nose: No visible nasal discharge. Mouth/Throat: Dry mucous membranes, no redness, no lesions. Neck: Neck supple, no cervical lymphadenopathy. Lungs: Bronchial breath sounds bilateral Cardio: Normal S1/S2, irregular rhythm, no murmurs, no JVD Abdomen: Soft no palpable masses, peristalsis present, no guarding or rebound, PEG tube in place, 2 small 1 to 2 cm dry near the umbilicus wounds Extremities: Symmetrical, no significant deformities, 2+ peripheral edema upto thighd,peripheral pulses presents. Skin: No rashes, no lesions, warm to touch. Neuro: Cannot be assessed due to patient's medical condition Psych: Flat affect Objective Labs 06/08/24 04:58 06/08/24 04:58 Labs: Laboratory Results - last 24 hr 06/06/24 06/07/24 06/07/24 10:24 05:12 05:17 WBC RBC Hgb Hct MCV MCH MCHC RDW Std Deviation Plt Count Neut % (Auto) Lymph % (Auto) [place] % (Auto) Eos % (Auto) Baso % (Auto) Neut # (Auto) Lymph # (Auto) [place] # (Auto) Eos # (Auto) Baso # (Auto) Immature Gran # (Auto) Absolute Nucleated RBC Immature Gran % Nucleated RBC % Smear Path Review Puncture Site Right Radial ABG pH 7.30 L ABG pCO2 47 ABG pO2 56 L* ABG HCO3 23 ABG O2 Saturation 83 L ABG Base Excess -3 VBG pH 7.35 VBG pCO2 46 D VBG pO2 52 VBG O2 Sat (Lo) 82 L D VBG Base Excess 0 FiO2 85 Sodium 143 141 Potassium 3.0 L 3.5 D Chloride 107 106 Carbon Dioxide 25.1 19.7 L Anion Gap 11 15 BUN 39 H 54 H Creatinine 2.1 H D 3.2 H D Estim Creat Clear Calc 25.9 L 17.0 L eGFR 33 L 20 L BUN/Creatinine Ratio 19 17 Glucose 88 124 H Calculated Osmolality 293 296 H Calcium 8.8 D 7.5 L Corrected Calcium 8.6 Phosphorus 4.6 Magnesium 2.1 Total Bilirubin 1.7 H AST 167 H ALT 99 H Alkaline Phosphatase 188 H D Total Protein 4.3 L Albumin 2.6 L Globulin 1.7 L Albumin/Globulin Ratio 1.5 TSH 5.87 H D Misc Test Result Blood Type Antibody Screen Blood Bank Wristband ID 06/07/24 06/07/24 08:07 09:00 WBC 14.2 H 15.0 H RBC 2.27 L 2.26 L Hgb 6.6 L* 6.5 L* Hct 18.7 L* 18.7 L* MCV 82 83 MCH 29.1 28.8 MCHC 35.3 34.8 RDW Std Deviation 49.1 H 49.9 H Plt Count 20 L* D 21 L* Neut % (Auto) 91 H 90 H Lymph % (Auto) 4 L 4 L [place] % (Auto) 3 3 Eos % (Auto) 2 2 Baso % (Auto) 0 0 Neut # (Auto) 12.9 H 13.5 H Lymph # (Auto) 0.5 L 0.6 L [place] # (Auto) 0.4 0.4 Eos # (Auto) 0.3 0.4 Baso # (Auto) 0.0 0.0 Immature Gran # (Auto) 0.12 H 0.11 H Absolute Nucleated RBC 0.06 H 0.04 H Immature Gran % 1 H 1 H Nucleated RBC % 0 0 Smear Path Review Sent to Pathologist Puncture Site ABG pH ABG pCO2 ABG pO2 ABG HCO3 ABG O2 Saturation ABG Base Excess VBG pH VBG pCO2 VBG pO2 VBG O2 Sat (Lo) VBG Base Excess FiO2 Sodium Potassium Chloride Carbon Dioxide Anion Gap BUN Creatinine Estim Creat Clear Calc eGFR BUN/Creatinine Ratio Glucose Calculated Osmolality Calcium Corrected Calcium Phosphorus Magnesium Total Bilirubin AST ALT Alkaline Phosphatase Total Protein Albumin Globulin Albumin/Globulin Ratio TSH Misc Test Result Platelets confirmed Platelets confirmed Blood Type O Positive Antibody Screen NEGATIVE Blood Bank Wristband ID Yes ABG Interpretation ABG results: 05/31/24 05/31/24 05/31/24 09:33 14:33 16:21 ABG pH 7.25 L 7.18 L* 7.30 L D ABG pCO2 68 H 78 H* D 57 H D ABG pO2 88 124 H D 69 L D ABG HCO3 30 H 29 H 28 H ABG O2 Saturation 96 99 H 94 ABG Base Excess 2 -1 1 VBG pH VBG pCO2 VBG pO2 VBG Base Excess 06/01/24 06/02/24 06/04/24 07:51 18:15 16:07 ABG pH 7.49 H D 7.47 H ABG pCO2 37 D 44 ABG pO2 49 L* D 48 L* ABG HCO3 28 H 32 H ABG O2 Saturation 89 L 86 L ABG Base Excess 5 H 7 H VBG pH 7.45 VBG pCO2 31 L VBG pO2 64 H VBG Base Excess -2 06/06/24 06/07/24 10:24 05:12 ABG pH 7.30 L ABG pCO2 47 ABG pO2 56 L* ABG HCO3 23 ABG O2 Saturation 83 L ABG Base Excess -3 VBG pH 7.35 VBG pCO2 46 D VBG pO2 52 VBG Base Excess 0 Quality Measures Quality Measures VTE prophylaxis Advance care planning discussed with:: patient Assessment & Plan Assessment Current Active Medications: Generic Name Dose Route Start Last Admin Trade Name Freq PRN Reason Stop Dose Admin Acetaminophen 650 mg 06/04/24 15:09 06/04/24 16:40 Acetaminophen Lindsey 325 Mg/10 Ml Udc GT 07/04/24 15:08 650 mg Q6HR PRN Administration Pain Or Fever > 100.4 Albuterol/Ipratropium 3 ml 06/04/24 15:33 Albuterol/Ipratropium (Duoneb) Rt Lindsey 3 Ml Nebu INH 07/04/24 15:32 Q2HR PRN SHORTNESS OF BREATH OR WHEEZE Amiodarone HCl 200 mg 06/05/24 21:00 06/07/24 08:34 Amiodarone Hcl 200 Mg Tablet GT 07/05/24 20:59 200 mg BID XOCHITL Administration Calcium Acetate 667 mg 06/04/24 18:45 06/07/24 08:34 Calcium Acetate 667 Mg Tablet PO 07/04/24 18:44 667 mg TIDWM XOCHITL Administration Dextrose 25 ml 06/04/24 15:32 Dextrose 50%-Water Inj 50 Ml Syringe IV 07/04/24 15:31 Q15MIN PRN BG 50-70 responsive npo pt Dextrose 50 ml 06/04/24 15:32 Dextrose 50%-Water Inj 50 Ml Syringe IV 07/04/24 15:31 Q15MIN PRN BG <50 OR BG <70 & pt unresponsive Heparin Sodium (Porcine) 5,000 unit 06/04/24 22:00 06/06/24 06:18 Heparin Sod Inj 5000 Unit/Ml Vial SC 06/18/24 21:59 5,000 unit Q8HR XOCHITL Administration Heparin Sodium (Porcine) 2,200 unit 06/05/24 17:03 06/07/24 08:55 Heparin Sod Inj 1000 Unit/Ml Vial 10 Ml INDWELLCAT 06/19/24 17:02 2,200 unit PRN PRN Administration DIALYSIS Norepinephrine/Dextrose 8 mg in 250 mls @ 6.572 mls/hr 06/03/24 11:37 06/07/24 10:18 Levophed In D5w 8mg/250ml IV 07/03/24 11:36 0.15 mcg/kg/min .Q24H PRN 19.716 mls/hr PER PROTOCOL Titration Protocol 0.05 MCG/KG/MIN Levofloxacin/Dextrose 500 mg in 100 mls @ 100 mls/hr 06/06/24 18:30 06/06/24 18:17 Levaquin Ivpb IV 06/13/24 18:29 100 mls/hr Q48H XOCHITL Administration Albumin Human 25 gm in 100 mls @ 100 mls/min 06/05/24 17:05 06/07/24 08:32 Albuminar-25 Ivpb IV Infused PRN PRN Infusion DIALYSIS Fentanyl Citrate 2,500 mcg in 250 mls @ 2.5 mls/hr 06/06/24 08:54 06/07/24 10:00 Sublimaze Inj 2,500 Mcg/250 Ml Bag IV 06/11/24 08:53 25 mcg/hr .Q24H PRN 2.5 mls/hr PER PROTOCOL Titration Protocol 25 MCG/HR Propofol 1,000 mg in 100 mls @ 2.025 mls/hr 06/06/24 08:55 06/07/24 10:00 Diprivan Ivpb IV 07/06/24 08:54 25 mcg/kg/min .Q24H PRN 10.125 mls/hr PER PROTOCOL Titration Protocol 5 MCG/KG/MIN Insulin Human Regular 0 unit 06/04/24 18:00 06/07/24 06:30 Insulin Hum Regular 1 Unit/0.01 Ml (Per Unit) SC 07/04/24 17:59 1 unit Q6HR XOCHITL Administration Protocol Lactulose 20 gm 06/06/24 09:00 06/07/24 08:34 Lactulose Syrup 20 Gm/30 Ml Udc PO 07/06/24 08:59 20 gm QDAY XOCHITL Administration Protocol Pantoprazole Sodium 40 mg 06/04/24 15:30 06/07/24 08:34 Pantoprazole Inj 40 Mg Vial IVP 07/04/24 15:29 40 mg QDAY XOCHITL Administration Pharmacy Consult 1 each 06/04/24 18:24 Pharmacy Renal Dose Adjustment 1 Ea XX 07/04/24 18:23 PRN PRN CONSULT Plan 73-year-old male with past medical history of 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 1. A-fib with RVR, new onset 2. Hypokalemia ?Patient developed A-fib with RVR on 06/02/2024 ?Initial EKG showed on admission sinus tachycardia. ?Repeat EKG on 05/31/2024 that showed sinus rhythm ?EKG on 06/02/2024 showed A-fib with RVR and at this time patient's potassium was 2.9. ?Patient is currently Limited code (no chest compressions) as per family's wishes ? Patient' family did not want any cardioversion at this time. Plan: -Recommend to continue amiodarone 200 mg twice daily. ?Recommend start patient on Eliquis 5 mg twice daily -Can give additional digoxin if needed for rate control when patient potassium and kidney function are stable. -Cannot start beta-valarie or diltiazem as the patient continue to be hypotensive ? Recommend to keep potassium magnesium above 4 and 2 respectively to avoid any further arrhythmias ?Recommend primary care team to have goals of care discussion 3. Acute on chronic hypoxic respiratory failure 4. Bilateral community-acquired pneumonia versus hospital-acquired pneumonia ? Continue management as per primary care team 5. Large bowel obstruction ?Continue management as per primary care team 6. CVA with residual deficits 7. Chronic PEG tube and tracheostomy ?Continue current management per primary care team 8. DM2 ? Continue current management as per primary care team 9. Bilateral upper extremity DVTs ? Continue current management as per primary care team 10. Anxiety 11. Depression ? Continue current management as per primary care team 12. Recurrent UTIs ? Continue current management as per primary care team Continue rest of management as per primary team. We are grateful to be able to participate in Mr. Sosa' care. Thank you for the consult Plan of care discussed with attending Sex Crimes Detective, Dr. Georgia Mcmahan MD PGY-1 Attending Provider Attestation/Addendum I have personally seen and examined the patient separately on the above date of service and discussed the plan of care with the resident. I reviewed the resident Dr. Allen consultation progress note and agree with the resident findings and plan in the note above and have also edited the documentation to reflect my findings and plan. Kit Ho M.D. Interventional Cardiology
--- NOTE | 2024-06-07 12:46 | PD.IMPROG ---
Documentation for date of: 06/07/24 Subjective Subjective Interval history: PEG site checked no drainage Good results with the GoLytely No plans for any colonoscopy Mechanically ventilated through tracheostomy Exam Vital Signs Temp Pulse Resp BP Pulse Ox O2 Del Method O2 Flow Rate 97.4 F 86 30 H 103/50 L 91 L Mechanical Ventilation 1 06/07/24 11:45 06/07/24 11:45 06/07/24 11:45 06/07/24 11:45 06/07/24 11:45 06/07/24 11:45 06/07/24 10:30 FiO2 85 06/07/24 12:00 Objective Labs 06/07/24 09:00 06/07/24 05:17 Labs: Laboratory Results - last 24 hr 06/07/24 06/07/24 06/07/24 05:12 05:17 08:07 WBC 14.2 H RBC 2.27 L Hgb 6.6 L* Hct 18.7 L* MCV 82 MCH 29.1 MCHC 35.3 RDW Std Deviation 49.1 H Plt Count 20 L* D Neut % (Auto) 91 H Lymph % (Auto) 4 L [place] % (Auto) 3 Eos % (Auto) 2 Baso % (Auto) 0 Neut # (Auto) 12.9 H Lymph # (Auto) 0.5 L [place] # (Auto) 0.4 Eos # (Auto) 0.3 Baso # (Auto) 0.0 Immature Gran # (Auto) 0.12 H Absolute Nucleated RBC 0.06 H Immature Gran % 1 H Nucleated RBC % 0 Smear Path Review Sent to Pathologist Puncture Site Right Radial ABG pH 7.30 L ABG pCO2 47 ABG pO2 56 L* ABG HCO3 23 ABG O2 Saturation 83 L ABG Base Excess -3 FiO2 85 Sodium 141 Potassium 3.5 D Chloride 106 Carbon Dioxide 19.7 L Anion Gap 15 BUN 54 H Creatinine 3.2 H D Estim Creat Clear Calc 17.0 L eGFR 20 L BUN/Creatinine Ratio 17 Glucose 124 H Calculated Osmolality 296 H Calcium 7.5 L Corrected Calcium 8.6 Phosphorus 4.6 Magnesium 2.1 Total Bilirubin 1.7 H AST 167 H ALT 99 H Alkaline Phosphatase 188 H D Total Protein 4.3 L Albumin 2.6 L Globulin 1.7 L Albumin/Globulin Ratio 1.5 TSH 5.87 H D Misc Test Result Platelets confirmed Blood Type Antibody Screen Crossmatch Blood Bank Wristband ID Blood Bank Comment 06/07/24 09:00 WBC 15.0 H RBC 2.26 L Hgb 6.5 L* Hct 18.7 L* MCV 83 MCH 28.8 MCHC 34.8 RDW Std Deviation 49.9 H Plt Count 21 L* Neut % (Auto) 90 H Lymph % (Auto) 4 L [place] % (Auto) 3 Eos % (Auto) 2 Baso % (Auto) 0 Neut # (Auto) 13.5 H Lymph # (Auto) 0.6 L [place] # (Auto) 0.4 Eos # (Auto) 0.4 Baso # (Auto) 0.0 Immature Gran # (Auto) 0.11 H Absolute Nucleated RBC 0.04 H Immature Gran % 1 H Nucleated RBC % 0 Smear Path Review Puncture Site ABG pH ABG pCO2 ABG pO2 ABG HCO3 ABG O2 Saturation ABG Base Excess FiO2 Sodium Potassium Chloride Carbon Dioxide Anion Gap BUN Creatinine Estim Creat Clear Calc eGFR BUN/Creatinine Ratio Glucose Calculated Osmolality Calcium Corrected Calcium Phosphorus Magnesium Total Bilirubin AST ALT Alkaline Phosphatase Total Protein Albumin Globulin Albumin/Globulin Ratio TSH Misc Test Result Platelets confirmed Blood Type O Positive Antibody Screen NEGATIVE Crossmatch See Detail Blood Bank Wristband ID Yes Blood Bank Comment PLATP Ready Impressions Impression: # Stool impaction status post GoLytely flush doing well # Placement of a new gastrostomy tube can be used for enteral hyperalimentation and meds ABG Interpretation ABG results: 05/31/24 05/31/24 05/31/24 09:33 14:33 16:21 ABG pH 7.25 L 7.18 L* 7.30 L D ABG pCO2 68 H 78 H* D 57 H D ABG pO2 88 124 H D 69 L D ABG HCO3 30 H 29 H 28 H ABG O2 Saturation 96 99 H 94 ABG Base Excess 2 -1 1 VBG pH VBG pCO2 VBG pO2 VBG Base Excess 06/01/24 06/02/24 06/04/24 07:51 18:15 16:07 ABG pH 7.49 H D 7.47 H ABG pCO2 37 D 44 ABG pO2 49 L* D 48 L* ABG HCO3 28 H 32 H ABG O2 Saturation 89 L 86 L ABG Base Excess 5 H 7 H VBG pH 7.45 VBG pCO2 31 L VBG pO2 64 H VBG Base Excess -2 06/06/24 06/07/24 10:24 05:12 ABG pH 7.30 L ABG pCO2 47 ABG pO2 56 L* ABG HCO3 23 ABG O2 Saturation 83 L ABG Base Excess -3 VBG pH 7.35 VBG pCO2 46 D VBG pO2 52 VBG Base Excess 0 Assessment & Plan A&P Narrative 73-year-old male with past medical history of 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 1. A-fib with RVR, new onset 2. Hypokalemia ?Patient developed A-fib with RVR on 06/02/2024 ?Initial EKG showed on admission sinus tachycardia. ?Repeat EKG on 05/31/2024 that showed sinus rhythm ?EKG on 06/02/2024 showed A-fib with RVR and at this time patient's potassium was 2.9. ?Patient is currently DNR/DNI as per family's wishes ? Patient' family did not want any cardioversion at this time. Plan: ?Continue amiodarone drip for now and add amiodarone 200 p.o BID ?Recommend start patient on Eliquis 5 mg twice daily ? Recommend to keep potassium magnesium above 4 and 2 respectively to avoid any further arrhythmias ?Recommend primary care team to have goals of care discussion 06/04/2024 Patient is on mechanical ventilation at the present point of time. Family again changed his status to limited code and wanted to Patient continues to be in atrial fibrillation with RVR and patient is still on amiodarone drip. Recommend to continue amiodarone drip at 1 mg/min as detailed yesterday. Recommend to also start oral amiodarone 400 mg twice daily for loading amiodarone completely Can give additional digoxin if needed for rate control when patient potassium and kidney function are stable. Cannot start beta-valarie or diltiazem as the patient is hypotensive and is requiring pressors. Family to meet again to discuss the goals of care and regarding the further plan of treatment. Continue heparin drip for anticoagulation and can change to Eliquis 5 mg twice daily if no further procedures planned. Keep potassium greater than 4 in addition greater than 2.0 at all times. 3. Acute on chronic hypoxic respiratory failure 4. Bilateral community-acquired pneumonia versus hospital-acquired pneumonia ? Continue management as per primary care team 5. Large bowel obstruction ?Continue management as per primary care team 6. CVA with residual deficits 7. Chronic PEG tube and tracheostomy ?Continue current management per primary care team 8. DM2 ? Continue current management as per primary care team 9. Bilateral upper extremity DVTs ? Continue current management as per primary care team 10. Anxiety 11. Depression ? Continue current management as per primary care team 12. Recurrent UTIs ? Continue current management as per primary care team There is a high probability of sudden, clinically significant or life threatening deterioration in the patient condition which required the highest level of physician preparedness to intervene urgently. I have personally spent total of 65 minutes of critical care time yesterday, exclusive of time spent on any procedures, in evaluation and management of this critically ill patient. Management of rest of the medical conditions as per primary team and other consultants. Thank you for the consult and allowing me to participate in the care of the patient. Cardiology will continue to follow. Kit Ho M.D. Interventional Cardiology Time Spent With Patient Time: Total time spent is greater than 50% in coordination of care (as documented) at patient's floor/unit and/or counseling patient:
[2024-06-07] MEDS: Norepinephrine/D5W 8mg/250ml 8 MG/250 ML BAG 22.344 MG IV (12:52)
[2024-06-07 12:53] LABS: LDH (Lactate Dehydrogenase) 458 U/L (120-246)
[2024-06-07] MEDS: BUMETANIDE INJ 0.25 MG/ML VIAL 4 ML 3 MG IVP (14:07)
--- NOTE | 2024-06-07 16:35 | ESPR_ITS ---
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 Patient recently came to the ED on 05/24/2024 with similar complaints and received enema following which patient had a bowel movement and transferred back to the facility. Later patient was still found to have constipation for which Dr. Durant was consulted and patient received different bowel regimens and GoLytely with no much effect on constipation. As the patient is having progressive severe abdominal distention with constipation despite bowel regimens and GoLytely he was brought to the hospital today. No history of fever, vomiting. Dr. Durant was consulted and he tried to manually disimpact the stools but unsuccessful. Later Dr Cramer was consulted. ED Course: -Initial vitals were blood pressure 140/84 mmHg, pulse rate 101 bpm, respiratory rate 22/min, SpO2 98% on mechanical ventilator on AC/VC mode. -Labs significant for WBC 9.1, Hb 11.8, platelets 241, sodium 138, potassium 3.3, chloride 90, bicarb 37.1, lactate 1.2, AST 41, ALT 23, procalcitonin 0.07 -CT abdomen/pelvis showed markedly distended large bowel with rectal thickening, massive stool impaction in the rectosigmoid colon and right inguinal hernia with urinary bladder as content -In the ED, patient was given potassium, cefepime. -Patient was admitted for Past medical history: CVA, hypertension, hyperlipidemia, diabetes mellitus, chronic PEG, COPD Past surgical history: PEG tube placement Social history: Unknown Patient developed worsening labs, respiratory distress with hypoxia, fever, and hypotension on the floors prompting rapid response. At bedside patient had MAP 41, with weak and slow peripheral pulse. Patient had clear mottling of feet, knees, hands. Chest x-ray showed worsening infiltrates of both lungs, especially prominent in left lung. Patient upgraded to ICU for worsening acute hypoxic respiratory failure, hypotension with weak peripheral pulses. Patient did not require pressors, received 2 L bolus lactated Ringer's with significant improvement in blood pressure. Peripheral pulse improved as well, heart rate WNL. Patient had multiple bowel movements with stabilizing of respiratory function, downgraded to telemetry. ICU consulted due to afib with RVR, worsening hypotension, requiring pressers to maintain MAP >65, and worsening respiratory distress requiring bagging for 1 hour. GOC discussion was held this morning with patient's and son. Principal Network Engineer, hospitalist team, and RN were at bedside. Interpretive services were utilized. and son were updated with the critical nature of patient's condition, including shock, severe respiratory distress with hypoxia while on 100% FiO2, severe hypokalemia, hypernatremia, atrial fibrillation with rapid ventricular response, organ dysfunction/lactic acidosis (worsening ZACH without urine output, likely secondary to shock) in addition to chronic conditions (h/o CVA leaving patient bedbound and fully dependent, chronic respiratory failure, chronic PEG). Family understood the poor prognosis for the patient, and requested to speak with patient's other children. Later, family made a decision and would like to initiate comfort measures once the youngest son is at bedside, likely facilities operations technician on 06/04. Plan is to discontinue all medications and lab draws at this time, other than levophed via peripheral IV, until patient's son arrives on 06/04. Once son arrives, hospitalist team will discontinue levophed and start comfort measures. Family is aware that PIV may fail, and patient may possibly pass overnight. 06/04/2024: Rapid response was called when patient developed afib with RVR. Hospitalist team initiated amiodarone drip for patient. Family re-initiated goals of care discussion, deciding to change patient to be limited code (no compressions) and otherwise reciev full treatment, including line placements and dialysis if necessary. Patient was then transferred to ICU for intensive management. Hospitalist team resumed patients previous meds. To facilitate lab draws and dialysis if necessary, a tri-flow central line was placed. After US exam of the neck, it was determined that even with high IJ placement there was not enough room around tracheostomy strap to maintain sterility, and a femoral line was placed without incident. Blood cultures, labs, CXR ordered. CXR showed severe diffuse pneumonia. Patient receiving broad spectrum antibiotics. Patient on pressors. 06/05/2024: Patient seen and examined at bedside. Neurologic status unchanged. Plan for dialysis today, per Dr. Reed patient was too unstable for dialysis given poor hemodynamics and respiratory status. Family was updated on patients condition and explained risks of dialysis, elected to move forward with dialysis. Dialysis planned for this evening without fluid removal. Patient continues to require pressers. Per night team, patient developed increased vertical nystagmus and belly movements, resolved with Ativan 2mg x1. 06/06/2024: Patient seen and examined at bedside. Patient received dialysis today. Developed worsening afib with tachycardia on dialysis, patient became agitated and asynchronous with vent. Propofol and fentanyl were initiated to maintain vent synchronicity, amiodrone 150mg bolus x1 given. Patient was able to complete dialysis with 800ml fluid removal. Tidal volume decreased from 450 to 380 for lung protective strategy in setting of ARDS. Plan to initiate tube feeds today. Patient has worsening thrombocytopenia, no evidence of hemorrhaging. 06/07/2024: Patient seen and examined at bedside. Dialysis attempted, however patient's blood ws too thick to be properly dialyzed. In addition, patient developed tachycardia and hypotension. Per nephrology, patient is not a candidate for further dialysis sessions. Patient remains sedated and ventilated. Hemoglobin and platelets dropped, 1 unit PRBC and 1 unit platelets ordered. Patient developed sinus tachycardia during PRBC transfusion, rate slowed from 125 ml/hr to 75 ml/hr with improvement in tachycardia. Bumex 3mg IV x1 given without any urinary output. Contact precautions initiated due to Acinetobacter baumannii/haemol infection. Family updated regarding patient's condition and poor prognosis. Exam Vital Signs Temp Pulse Resp BP Pulse Ox O2 Del Method O2 Flow Rate 98.2 F 121 H 28 H 108/63 97 Mechanical Ventilation 1 06/07/24 13:29 06/07/24 15:45 06/07/24 15:45 06/07/24 15:45 06/07/24 15:45 06/07/24 15:45 06/07/24 10:30 FiO2 90 06/07/24 15:49 Narrative Exam PE: Gen: Alert, poorly responsive. Tracheostomy. HEENT: NCAT, anicteric conjunctivae. Dry mucous membranes. Vertical nystagmus. CVS: No M/R/G. Afib with tachycardia. Resp: Coarse lung sounds. Rhonchi and wheezing all lung ansari. Abd: Abdomen distended, soft. PEG tube. MSK: Good ROM in BUE & BLE. Bilateral lower and upper extremity edema. Edematous scrotum. Right femoral tri-flow catheter. Left toes darkening. Neuro: CN II-XII grossly intact. Baseline nonverbal. Sometimes tracks sounds. Objective Labs 06/13/24 05:15 06/14/24 05:50 Labs: Laboratory Results - last 24 hr 06/07/24 06/07/24 06/07/24 05:12 05:17 08:07 WBC 14.2 H RBC 2.27 L Hgb 6.6 L* Hct 18.7 L* MCV 82 MCH 29.1 MCHC 35.3 RDW Std Deviation 49.1 H Plt Count 20 L* D Neut % (Auto) 91 H Lymph % (Auto) 4 L [place] % (Auto) 3 Eos % (Auto) 2 Baso % (Auto) 0 Neut # (Auto) 12.9 H Lymph # (Auto) 0.5 L [place] # (Auto) 0.4 Eos # (Auto) 0.3 Baso # (Auto) 0.0 Immature Gran # (Auto) 0.12 H Absolute Nucleated RBC 0.06 H Immature Gran % 1 H Nucleated RBC % 0 Smear Path Review Sent to Pathologist Puncture Site Right Radial ABG pH 7.30 L ABG pCO2 47 ABG pO2 56 L* ABG HCO3 23 ABG O2 Saturation 83 L ABG Base Excess -3 FiO2 85 Sodium 141 Potassium 3.5 D Chloride 106 Carbon Dioxide 19.7 L Anion Gap 15 BUN 54 H Creatinine 3.2 H D Estim Creat Clear Calc 17.0 L eGFR 20 L BUN/Creatinine Ratio 17 Glucose 124 H Calculated Osmolality 296 H Calcium 7.5 L Corrected Calcium 8.6 Phosphorus 4.6 Magnesium 2.1 Total Bilirubin 1.7 H AST 167 H ALT 99 H Alkaline Phosphatase 188 H D Lactate Dehydrogenase 458 H Total Protein 4.3 L Albumin 2.6 L Globulin 1.7 L Albumin/Globulin Ratio 1.5 TSH 5.87 H D Misc Test Result Platelets confirmed Blood Type Antibody Screen Crossmatch Blood Bank Wristband ID Blood Bank Comment 06/07/24 09:00 WBC 15.0 H RBC 2.26 L Hgb 6.5 L* Hct 18.7 L* MCV 83 MCH 28.8 MCHC 34.8 RDW Std Deviation 49.9 H Plt Count 21 L* Neut % (Auto) 90 H Lymph % (Auto) 4 L [place] % (Auto) 3 Eos % (Auto) 2 Baso % (Auto) 0 Neut # (Auto) 13.5 H Lymph # (Auto) 0.6 L [place] # (Auto) 0.4 Eos # (Auto) 0.4 Baso # (Auto) 0.0 Immature Gran # (Auto) 0.11 H Absolute Nucleated RBC 0.04 H Immature Gran % 1 H Nucleated RBC % 0 Smear Path Review Cancelled Puncture Site ABG pH ABG pCO2 ABG pO2 ABG HCO3 ABG O2 Saturation ABG Base Excess FiO2 Sodium Potassium Chloride Carbon Dioxide Anion Gap BUN Creatinine Estim Creat Clear Calc eGFR BUN/Creatinine Ratio Glucose Calculated Osmolality Calcium Corrected Calcium Phosphorus Magnesium Total Bilirubin AST ALT Alkaline Phosphatase Lactate Dehydrogenase Total Protein Albumin Globulin Albumin/Globulin Ratio TSH Misc Test Result Platelets confirmed Blood Type O Positive Antibody Screen NEGATIVE Crossmatch See Detail Blood Bank Wristband ID Yes Blood Bank Comment PLATP Ready ABG Interpretation ABG results: 05/31/24 05/31/24 05/31/24 09:33 14:33 16:21 ABG pH 7.25 L 7.18 L* 7.30 L D ABG pCO2 68 H 78 H* D 57 H D ABG pO2 88 124 H D 69 L D ABG HCO3 30 H 29 H 28 H ABG O2 Saturation 96 99 H 94 ABG Base Excess 2 -1 1 VBG pH VBG pCO2 VBG pO2 VBG Base Excess 06/01/24 06/02/24 06/04/24 07:51 18:15 16:07 ABG pH 7.49 H D 7.47 H ABG pCO2 37 D 44 ABG pO2 49 L* D 48 L* ABG HCO3 28 H 32 H ABG O2 Saturation 89 L 86 L ABG Base Excess 5 H 7 H VBG pH 7.45 VBG pCO2 31 L VBG pO2 64 H VBG Base Excess -2 06/06/24 06/07/24 10:24 05:12 ABG pH 7.30 L ABG pCO2 47 ABG pO2 56 L* ABG HCO3 23 ABG O2 Saturation 83 L ABG Base Excess -3 VBG pH 7.35 VBG pCO2 46 D VBG pO2 52 VBG Base Excess 0 Quality Measures Quality Measures VTE prophylaxis Advance care planning discussed with:: spouse and child Assessment & Plan Assessment Current Active Medications: Generic Name Dose Route Start Last Admin Trade Name Freq PRN Reason Stop Dose Admin Acetaminophen 650 mg 12/18/24 15:09 06/04/24 16:40 Acetaminophen Lindsey 325 Mg/10 Ml Udc GT 07/04/24 15:08 650 mg Q6HR PRN Administration Pain Or Fever > 100.4 Albuterol/Ipratropium 3 ml 06/04/24 15:33 Albuterol/Ipratropium (Duoneb) Rt Lindsey 3 Ml Nebu INH 07/04/24 15:32 Q2HR PRN SHORTNESS OF BREATH OR WHEEZE Amiodarone HCl 200 mg 06/05/24 21:00 06/07/24 08:34 Amiodarone Hcl 200 Mg Tablet GT 07/05/24 20:59 200 mg BID XOCHITL Administration Calcium Acetate 667 mg 06/04/24 18:45 06/07/24 11:50 Calcium Acetate 667 Mg Tablet PO 07/04/24 18:44 667 mg TIDWM XOCHITL Administration Dextrose 25 ml 06/04/24 15:32 Dextrose 50%-Water Inj 50 Ml Syringe IV 07/04/24 15:31 Q15MIN PRN BG 50-70 responsive npo pt Dextrose 50 ml 06/04/24 15:32 Dextrose 50%-Water Inj 50 Ml Syringe IV 07/04/24 15:31 Q15MIN PRN BG <50 OR BG <70 & pt unresponsive Heparin Sodium (Porcine) 5,000 unit 06/04/24 22:00 06/06/24 06:18 Heparin Sod Inj 5000 Unit/Ml Vial SC 06/18/24 21:59 5,000 unit Q8HR XOCHITL Administration Heparin Sodium (Porcine) 2,200 unit 06/05/24 17:03 06/07/24 08:55 Heparin Sod Inj 1000 Unit/Ml Vial 10 Ml INDWELLCAT 06/19/24 17:02 2,200 unit PRN PRN Administration DIALYSIS Norepinephrine/Dextrose 8 mg in 250 mls @ 6.572 mls/hr 06/03/24 11:37 06/07/24 16:00 Levophed In D5w 8mg/250ml IV 07/03/24 11:36 0.17 mcg/kg/min .Q24H PRN 22.344 mls/hr PER PROTOCOL Titration Protocol 0.05 MCG/KG/MIN Levofloxacin/Dextrose 500 mg in 100 mls @ 100 mls/hr 06/06/24 18:30 12/20/24 18:17 Levaquin Ivpb IV 06/13/24 18:29 100 mls/hr Q48H XOCHITL Administration Albumin Human 25 gm in 100 mls @ 100 mls/min 06/05/24 17:05 06/07/24 08:32 Albuminar-25 Ivpb IV Infused PRN PRN Infusion DIALYSIS Fentanyl Citrate 2,500 mcg in 250 mls @ 2.5 mls/hr 06/06/24 08:54 06/07/24 16:00 Sublimaze Inj 2,500 Mcg/250 Ml Bag IV 06/11/24 08:53 25 mcg/hr .Q24H PRN 2.5 mls/hr PER PROTOCOL Titration Protocol 25 MCG/HR Propofol 1,000 mg in 100 mls @ 2.025 mls/hr 06/06/24 08:55 06/07/24 16:00 Diprivan Ivpb IV 07/06/24 08:54 25 mcg/kg/min .Q24H PRN 10.125 mls/hr PER PROTOCOL Titration Protocol 5 MCG/KG/MIN Clindamycin/Sodium Chloride 600 mg in 50 mls @ 100 mls/hr 06/07/24 18:00 Cleocin/Ns Ivpb IV 06/14/24 17:59 Q6HR XOCHITL Insulin Human Regular 0 unit 06/04/24 18:00 06/07/24 11:50 Insulin Hum Regular 1 Unit/0.01 Ml (Per Unit) SC 07/04/24 17:59 1 unit Q6HR XOCHITL Administration Protocol Lactulose 20 gm 06/06/24 09:00 06/07/24 08:34 Lactulose Syrup 20 Gm/30 Ml Udc PO 07/06/24 08:59 20 gm QDAY XOCHITL Administration Protocol Pantoprazole Sodium 40 mg 06/04/24 15:30 06/07/24 08:34 Pantoprazole Inj 40 Mg Vial IVP 07/04/24 15:29 40 mg QDAY XOCHITL Administration Pharmacy Consult 1 each 06/04/24 18:24 Pharmacy Renal Dose Adjustment 1 Ea XX 07/04/24 18:23 PRN PRN CONSULT Plan 73-year-old male with 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 Neuro: #Acute encephalopathy #CVA with residual deficits Metabolic encephalopathy due to severe constipation, hypoxia, metabolic disturbances. Patient is nonverbal at baseline, per family at bedside he is normally somewhat interactive. Currently patient is responsive only to pain, opens eyes, does not track sounds. Patient became agitated during dialysis, sedated to maintain vent synchronicity. -Treat underlying conditions -Monitor Cardio: #Septic shock Patient developed severe hypotension causing rapid response to be called, MAP 41. Patient had notable mottling of hands, knees, feet. Patient has had fevers, leukocytosis. Patient showed significant improvement after 2 L bolus lactated Ringer's, hypotension resolved. Patient was downgraded, and per family wishes labs and medications other than levophed were discontinued. Patient's family later elected to resume treatment. Patient developed new fevers, increased leukocytosis. Procal 8.19. Repeat blood cultures drawn. Patient started on levofloxacin based on previous cultures, dosed for acute kidney injury. -Close monitoring -Levophed, titrate as needed -Levofloxacin 750 mg IV x1, followed by Levofloxacin 500 mg IV q48h (Started 06/04) -Clindamycin 600mg IV q6h (started 06/07) -Follow-up blood cultures #Afib with RVR Patient developed afib with RVR prompting rapid response. Amio bolus given, drip completed. Worsening tachycardia during dialysis, resolved with 150mg bolus amiodorone x1. -amiodarone 200mg GT BID -telemonitoring Pulm: #Acute hypoxic respiratory failure #Aspiration pneumonia #ARDS Patient developed worsening hypoxia despite increasing FiO2 on the floors following massive aspiration. Chest x-ray shows significant bilateral pneumonia, more severe on the left side. Patient has significantly distended abdomen, present on lungs. ABG showed pH 7.18, pCO2 70, pO2 124. Vent settings changed to increase tidal volume and respiratory rate, repeat ABG showed pH 7.3, pCO2 57, pO2 69. Patient improved enough for downgrade to telemetry, was later upgraded back to ICU for worsening hypoxia, hypotension, afib with RVR. Patient continues to have high FiO2 requirements to maintain saturation. Tidal volume decreased from 450 to 380. -Maintain vent settings, wean down FiO2 as tolerated -Lung protective vent strategies -Duoneb as needed -Antibiotics as above GI: #Transaminitis DDx Medication effect vs. severe acute illness Patient has had mild transaminitis during hospital stay. Slightly uptrending, patient on levaquin and amiodarone. Timing does not match rise in LFTs, could be contributing factor. Downtrending -monitor #PEG tube Patient has chronic PEG tube. Feeds have been held due to large bowel obstruction, now resolved. -Tube feeds, 20ml/hr with 25ml/hr water flushes Renal: #ATN Patient developed ATN due to ischemia in setting of hypotension. Patient had left femoral tri-flow cath placed for dialysis. Patient had difficulty with dialysis. On third day, blood was too thick to properly dialyze. Patient deemed to unstable for furhter dialysis by planner chief. Family updated on patient status. Patient anuric. Bumex 3mg IV given x1 without urine output. Patient remains severely fluid overloaded. -Not suitable candidate for dialysis #Hypokalemia Patient has had severely low potassium, down to 2.2. Patient was given multiple doses of potassium chloride, potassium improved to 3.5. After family requested treatment, repeat labs were drawn, potassium 2.2. 60mEq GT and 10 mEq IV ordered. Patient receiving dialysis with potassium repletion. -Monitor -Replete as needed Endo: #DM Patient history -ISS Heme: #Thrombocytopenia due to DIC Patient has had mild thrombocytopenia, steadily worsening for several days. Recently downtrended to 47. No signs of thrombosis or hemorrhaging. DIC panel: PT 14.5, PTT 49, Fibrinogen 515, D-Dimer >3820. LDH elevated. Platelets dropped to 20, transfusing 1 unit -Monitor -Treat underlying conditions -Replace platelets if <20k #Leukocytosis Likely due to infection -Monitor #Normocytic anemia Patient has chronic normocytic anemia, slightly worse than normal currently. No signs of bleeding. Dropped to 6.5 after attempted dialysis, 1 unit PRBC given -Monitor ID: #Sepsis Procal 8.. Fevers. Patient received Vancomycin and Zosyn previously. Blood cultures grew MRSA, sputum cultures grew Acinetobacter baumannii/haemol. Will adjust antibiotic dosage for reduced creatinine clearance -Levofloxacin 750 mg IV x1, followed by Levofloxacin 500 mg IV q48h (Started 06/04) -Clindamycin 600mg IV q6h (started 06/07) -Tylenol as needed for fevers -contact precautions Skin/MSK: #Deep tissue injury Patient has deep tissue injury to right upper back. -bandaged #Stage two pressure ulcer Patient has stage 2 pressure ulcer to right buttock. -bandaged ICU Health maintenance: Mechanical ventilation: Yes Sedation:Yes Diet: Tube feeds via PEG DVT ppx: None GI ppx: Protonix Godinez: No IV lines: Peripheral IVs Central line: Femoral tri-flow Arterial line: No Code status: Limited Code: No compressions Plan of care discussed with attending Dr. Garland. Jayjay Malagon MD PGY-1 Attending Provider Attestation/Addendum Patient seen and examined with above resident, Jayjay Malagon MD. I agree with the findings, assessment, and plan of care as document except for any differences below. Patient's hospitalization complicated by acute renal failure requiring hemodialysis. Patient underwent dialysis sessions with inability to run circuit adequately for greater than 1 hour with clotting of tubing and loss of significant blood. Patient requiring replacement with PRBCs and platelets at this point. Continues to have low platelet count for which we will evaluate alternate etiologies apart from consumption by circuit. In interim patient continues to have significant volume overload for which we will try to attempt Bumex despite his severe renal dysfunction. Patient on appropriate antibiotics for growth of Acinetobacter baumannii. Patient's family has been made aware of poor prognosis but remain hopeful continue to pursue all aggressive means. Patient remains on vasopressor support with additional difficulty weaning this despite adequate coverage for bacterial infection. Total critical care time: I personally spent 45 minutes for review of physiologic parameters, directing plan of care throughout the day, and coordination of care with other specialties. This is exclusive of time spent teaching housestaff or performing separate billable procedures. Patient continues require critical care services for acute on chronic hypoxic respiratory failure and septic shock in the setting of ventilator associated pneumonia/HCAP secondary to Acinetobacter baumannii.
--- NOTE | 2024-06-07 16:45 | PC.NURSE ---
Dr Malagon explained to the family regarding the patients condition and that the patient is not tolerating dialysis. Comfort care was explained to the and son. and son wants to discuss it as a family before making the decision.
[2024-06-07] MEDS: CLINDAMYCIN/NS 600 MG IVPB 600 MG/50 ML BAG 100 MG IV (18:00)
[2024-06-08] VITALS (110 sets, daily range): BP systolic 70–123; BP diastolic 33–82; PULSE 76–129; RESP 21–29; TEMP 36.4–38.1; O2SAT 73–99; BMI 29.7
[2024-06-08] MEDS: CLINDAMYCIN/NS 600 MG IVPB 600 MG/50 ML BAG 100 MG IV ×4 (00:21→18:05)
[2024-06-08] MEDS: Norepinephrine/D5W 8mg/250ml 8 MG/250 ML BAG 24.973 MG IV (00:21)
[2024-06-08] MEDS: INSULIN HUM REGULAR 1 UNIT/0.01 ML (PER UNIT) SC ×3 (00:47→11:37)
[2024-06-08 00:54] LABS: Hematocrit 25.6 % (41.0-53.0); Hemoglobin 8.8 g/dL (13.5-16.0)
[2024-06-08] MEDS: PROPOFOL 1,000 MG IVPB 1,000 MG/100 ML VIAL 10.125 MG IV (05:53)
[2024-06-08 06:48] LABS: Basophils # (Auto) 0.1 Thou/mm3 (0.0-0.2); Basophils % (Auto) 0 % (0-2.5); Eosinophils # (Auto) 0.5 Thou/mm3 (0.0-0.5); Eosinophils % (Auto) 3 % (0-10); Hematocrit 23.3 % (41.0-53.0); Immature Granulocytes % (Auto) 1 % (0-0); Immature Granulocytes Auto 0.19 Thou/mm3 (0.00-0.00); Lymphocytes # (Auto) 0.6 Thou/mm3 (1.0-4.8); Lymphocytes % (Auto) 4 % (10-50); Mean Corpuscular HGB Conc 36.1 g/dl (31.0-37.0); Mean Corpuscular Hemoglobin 29.3 pg (25.0-35.0); Mean Corpuscular Volume 81 fL (80-100); Monocytes # (Auto) 0.7 Thou/mm3 (0.0-0.8); Monocytes % (Auto) 4 % (0-12); Neutrophils # (Auto) 15.8 Thou/mm3 (1.8-7.7); Neutrophils % (Auto) 88 % (37-80); Nucleated Red Blood Cell # 0.27 Thou/mm3 (0.00-0.00); Nucleated Red Blood Cell % 2 /100 WBC (0); RDW Standard Deviation 47.8 fL (35.1-43.9); Red Blood Count 2.87 Miln/mm3 (4.50-5.90); White Blood Count 17.9 Thou/mm3 (3.8-10.6)
[2024-06-08 06:53] LABS: Alanine Aminotransferase 71 U/L (10-49); Albumin, Serum 2.5 gm/dL (3.4-4.8); Albumin/Globulin Ratio 1.7 (1.2-2.2); Alkaline Phosphatase 171 U/L (46-116); Anion Gap 14 (7-16); Aspartate Amino Transferase 75 U/L (0-34); BUN/Creatinine Ratio 19 Ratio (12-20); Bilirubin,Total 1.4 mg/dL (0.3-1.2); Blood Urea Nitrogen 66 mg/dL (9-23); Calcium 7.6 mg/dL (8.3-10.6); Calcium (Corrected) 8.8 mg/dL (8.5-10.1); Carbon Dioxide 21.9 mMol/L (20.0-31.0); Chloride 102 mMol/L (98-107); Creatinine (Component) 3.4 mg/dL (0.6-1.3); Estimated Creatinine Clearance 16.4 mL/min (>60); Globulin 1.5 gm/dL (2.3-3.5); Glucose 134 mg/dL (74-106); Magnesium 1.9 mg/dL (1.6-2.6); Osmolality,Calculated 296 (275-295); Phosphorous 3.7 mg/dL (2.4-5.1); Sodium 138 mMol/L (136-145); eGFR 18 See Note
[2024-06-08 06:56] LABS: Potassium 2.2 mMol/L (3.4-5.1)
[2024-06-08 07:03] LABS: Hemoglobin 8.4 g/dL (13.5-16.0); Platelet Count 17 Thou/mm3 (140-440)
[2024-06-08] MEDS: POTASSIUM CHL 10 mEq IVPB 100 ML 100 MEQ IV ×2 (07:24→08:38)
[2024-06-08] MEDS: POTASSIUM CHLORIDE 10% 20 MEQ/15 ML UDC 40 MEQ GT (07:24)
[2024-06-08 07:25] LABS: Slide Review Platelets confirmed
[2024-06-08] MEDS: PANTOPRAZOLE INJ 40 MG VIAL IVP (08:24)
[2024-06-08] MEDS: AMIODARONE HCL 200 MG TABLET GT ×2 (08:24→20:25)
[2024-06-08] MEDS: CALCIUM ACETATE 667 MG TABLET GT ×3 (08:38→18:06)
--- NOTE | 2024-06-08 09:04 | ESPR_ITS ---
Documentation for date of: 06/08/24 Subjective Subjective Interval history: Patient was seen at bedside this morning. Clinically unchanged. Patient continues to be in/out of A-fib overnight Recommend to continue amiodarone 200 mg twice daily. Recommend to start Eliquis 5 mg twice daily if no contraindications. Patient appears to be swollen upto upper back. Recommend ICU team to have goals of care discussion with family. Potassium 3.2 today, magnesium 2.1 today, recommend to keep potassium and magnesium above 4 and 2 respectively to avoid any further arrhythmias Kidney function continues to decline with creatinine 3.4 and BUN 66, patient did not get hemodialysis yesterday due to thick blood. Patient is on pressors Platelets continue to drop, 17 today. Exam Vital Signs Temp Pulse Resp BP Pulse Ox O2 Del Method O2 Flow Rate 98.2 F 88 28 H 113/61 91 L Mechanical Ventilation 90 06/08/24 00:00 06/08/24 08:24 06/08/24 06:45 06/08/24 08:24 06/08/24 06:45 06/07/24 17:00 06/07/24 17:00 FiO2 75 06/08/24 06:19 Narrative Exam General: Nonverbal and unresponsive. Eyes: Pupils were difficult to assess due to cataracts Ears: No visible ear discharge Nose: No visible nasal discharge. Mouth/Throat: Dry mucous membranes, no redness, no lesions. Neck: Neck supple, no cervical lymphadenopathy. Lungs: Bronchial breath sounds bilateral Cardio: Normal S1/S2, irregular rhythm, no murmurs, no JVD Abdomen: Soft no palpable masses, peristalsis present, no guarding or rebound, PEG tube in place, 2 small 1 to 2 cm dry near the umbilicus wounds Extremities: Symmetrical, no significant deformities, 2+ peripheral edema upto thighs and upper back noted to be swollen,peripheral pulses presents. Skin: No rashes, no lesions, warm to touch. Neuro: Cannot be assessed due to patient's medical condition Psych: Flat affect Objective Labs 06/08/24 04:58 06/08/24 04:58 Labs: Laboratory Results - last 24 hr 06/07/24 06/07/24 06/08/24 08:07 09:00 00:06 WBC 15.0 H RBC 2.26 L Hgb 6.5 L* 8.8 L D Hct 18.7 L* 25.6 L MCV 83 MCH 28.8 MCHC 34.8 RDW Std Deviation 49.9 H Plt Count 20 L* D 21 L* Neut % (Auto) 90 H Lymph % (Auto) 4 L [place] % (Auto) 3 Eos % (Auto) 2 Baso % (Auto) 0 Neut # (Auto) 13.5 H Lymph # (Auto) 0.6 L [place] # (Auto) 0.4 Eos # (Auto) 0.4 Baso # (Auto) 0.0 Immature Gran # (Auto) 0.11 H Absolute Nucleated RBC 0.04 H Immature Gran % 1 H Nucleated RBC % 0 Smear Path Review Sent to Pathologist Cancelled Sodium Potassium Chloride Carbon Dioxide Anion Gap BUN Creatinine Estim Creat Clear Calc eGFR BUN/Creatinine Ratio Glucose Calculated Osmolality Calcium Corrected Calcium Phosphorus Magnesium Total Bilirubin AST ALT Alkaline Phosphatase Lactate Dehydrogenase 458 H Total Protein Albumin Globulin Albumin/Globulin Ratio Misc Test Result Platelets confirmed Platelets confirmed Blood Type O Positive Antibody Screen NEGATIVE Crossmatch See Detail Blood Bank Wristband ID Yes Blood Bank Comment PLATP Ready 06/08/24 04:58 WBC 17.9 H RBC 2.87 L Hgb 8.4 L Hct 23.3 L MCV 81 MCH 29.3 MCHC 36.1 RDW Std Deviation 47.8 H Plt Count 17 L* Neut % (Auto) 88 H Lymph % (Auto) 4 L [place] % (Auto) 4 Eos % (Auto) 3 Baso % (Auto) 0 Neut # (Auto) 15.8 H Lymph # (Auto) 0.6 L [place] # (Auto) 0.7 Eos # (Auto) 0.5 Baso # (Auto) 0.1 Immature Gran # (Auto) 0.19 H Absolute Nucleated RBC 0.27 H Immature Gran % 1 H Nucleated RBC % 2 H Smear Path Review Sodium 138 Potassium 2.2 L* D Chloride 102 Carbon Dioxide 21.9 Anion Gap 14 BUN 66 H Creatinine 3.4 H Estim Creat Clear Calc 16.4 L eGFR 18 L BUN/Creatinine Ratio 19 Glucose 134 H Calculated Osmolality 296 H Calcium 7.6 L Corrected Calcium 8.8 Phosphorus 3.7 Magnesium 1.9 Total Bilirubin 1.4 H AST 75 H ALT 71 H Alkaline Phosphatase 171 H Lactate Dehydrogenase Total Protein 4.0 L Albumin 2.5 L Globulin 1.5 L Albumin/Globulin Ratio 1.7 Misc Test Result Platelets confirmed Blood Type Antibody Screen Crossmatch Blood Bank Wristband ID Blood Bank Comment ABG Interpretation ABG results: 05/31/24 05/31/24 05/31/24 09:33 14:33 16:21 ABG pH 7.25 L 7.18 L* 7.30 L D ABG pCO2 68 H 78 H* D 57 H D ABG pO2 88 124 H D 69 L D ABG HCO3 30 H 29 H 28 H ABG O2 Saturation 96 99 H 94 ABG Base Excess 2 -1 1 VBG pH VBG pCO2 VBG pO2 VBG Base Excess 06/01/24 06/02/24 06/04/24 07:51 18:15 16:07 ABG pH 7.49 H D 7.47 H ABG pCO2 37 D 44 ABG pO2 49 L* D 48 L* ABG HCO3 28 H 32 H ABG O2 Saturation 89 L 86 L ABG Base Excess 5 H 7 H VBG pH 7.45 VBG pCO2 31 L VBG pO2 64 H VBG Base Excess -2 06/06/24 06/07/24 10:24 05:12 ABG pH 7.30 L ABG pCO2 47 ABG pO2 56 L* ABG HCO3 23 ABG O2 Saturation 83 L ABG Base Excess -3 VBG pH 7.35 VBG pCO2 46 D VBG pO2 52 VBG Base Excess 0 Quality Measures Quality Measures VTE prophylaxis Advance care planning discussed with:: patient Assessment & Plan Assessment Current Active Medications: Generic Name Dose Route Start Last Admin Trade Name Freq PRN Reason Stop Dose Admin Acetaminophen 650 mg 06/04/24 15:09 06/04/24 16:40 Acetaminophen Lindsey 325 Mg/10 Ml Udc GT 07/04/24 15:08 650 mg Q6HR PRN Administration Pain Or Fever > 100.4 Albuterol/Ipratropium 3 ml 06/04/24 15:33 Albuterol/Ipratropium (Duoneb) Rt Lindsey 3 Ml Nebu INH 07/04/24 15:32 Q2HR PRN SHORTNESS OF BREATH OR WHEEZE Amiodarone HCl 200 mg 06/05/24 21:00 06/08/24 08:24 Amiodarone Hcl 200 Mg Tablet GT 07/05/24 20:59 200 mg BID XOCHITL Administration Calcium Acetate 667 mg 06/08/24 08:45 06/08/24 08:38 Calcium Acetate 667 Mg Tablet GT 07/04/24 18:44 667 mg TIDWM XOCHITL Administration Dextrose 25 ml 06/04/24 15:32 Dextrose 50%-Water Inj 50 Ml Syringe IV 07/04/24 15:31 Q15MIN PRN BG 50-70 responsive npo pt Dextrose 50 ml 06/04/24 15:32 Dextrose 50%-Water Inj 50 Ml Syringe IV 07/04/24 15:31 Q15MIN PRN BG <50 OR BG <70 & pt unresponsive Heparin Sodium (Porcine) 5,000 unit 06/04/24 22:00 06/06/24 06:18 Heparin Sod Inj 5000 Unit/Ml Vial SC 06/18/24 21:59 5,000 unit Q8HR XOCHITL Administration Heparin Sodium (Porcine) 2,200 unit 06/05/24 17:03 06/07/24 08:55 Heparin Sod Inj 1000 Unit/Ml Vial 10 Ml INDWELLCAT 06/19/24 17:02 2,200 unit PRN PRN Administration DIALYSIS Norepinephrine/Dextrose 8 mg in 250 mls @ 6.572 mls/hr 06/03/24 11:37 06/08/24 09:02 Levophed In D5w 8mg/250ml IV 07/03/24 11:36 0.23 mcg/kg/min .Q24H PRN 30.231 mls/hr PER PROTOCOL Titration Protocol 0.05 MCG/KG/MIN Levofloxacin/Dextrose 500 mg in 100 mls @ 100 mls/hr 06/06/24 18:30 06/06/24 18:17 Levaquin Ivpb IV 06/13/24 18:29 100 mls/hr Q48H XOCHITL Administration Albumin Human 25 gm in 100 mls @ 100 mls/min 06/05/24 17:05 06/07/24 08:32 Albuminar-25 Ivpb IV Infused PRN PRN Infusion DIALYSIS Fentanyl Citrate 2,500 mcg in 250 mls @ 2.5 mls/hr 06/06/24 08:54 06/08/24 09:00 Sublimaze Inj 2,500 Mcg/250 Ml Bag IV 06/11/24 08:53 25 mcg/hr .Q24H PRN 2.5 mls/hr PER PROTOCOL Titration Protocol 25 MCG/HR Propofol 1,000 mg in 100 mls @ 2.025 mls/hr 06/06/24 08:55 12/22/24 06:00 Diprivan Ivpb IV 07/06/24 08:54 25 mcg/kg/min .Q24H PRN 10.125 mls/hr PER PROTOCOL Titration Protocol 5 MCG/KG/MIN Clindamycin/Sodium Chloride 600 mg in 50 mls @ 100 mls/hr 06/07/24 18:00 06/08/24 05:49 Cleocin/Ns Ivpb IV 06/14/24 17:59 100 mls/hr Q6HR XOCHITL Administration Potassium Chloride 100 mls @ 100 mls/hr 06/08/24 07:30 06/08/24 08:38 Kcl Ivpb IV 06/08/24 09:29 100 mls/hr Q1H XOCHITL Administration Insulin Human Regular 0 unit 06/04/24 18:00 06/08/24 05:49 Insulin Hum Regular 1 Unit/0.01 Ml (Per Unit) SC 07/04/24 17:59 1 unit Q6HR XOCHITL Administration Protocol Lactulose 20 gm 06/08/24 09:00 Lactulose Syrup 20 Gm/30 Ml Udc GT 07/04/24 21:59 QDAY XOCHITL Protocol Pantoprazole Sodium 40 mg 06/04/24 15:30 06/08/24 08:24 Pantoprazole Inj 40 Mg Vial IVP 07/04/24 15:29 40 mg QDAY XOCHITL Administration Pharmacy Consult 1 each 06/04/24 18:24 Pharmacy Renal Dose Adjustment 1 Ea XX 07/04/24 18:23 PRN PRN CONSULT Plan 73-year-old male with past medical history of 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 1. A-fib with RVR, new onset 2. Hypokalemia ?Patient developed A-fib with RVR on 06/02/2024 ?Initial EKG showed on admission sinus tachycardia. ?Repeat EKG on 05/31/2024 that showed sinus rhythm ?EKG on 06/02/2024 showed A-fib with RVR and at this time patient's potassium was 2.9. ?Patient is currently Limited code (no chest compressions) as per family's wishes ? Patient' family did not want any cardioversion at this time. Plan: -Recommend to continue amiodarone 200 mg twice daily. ?Recommend start patient on Eliquis 5 mg twice daily -Can give additional digoxin if needed for rate control when patient potassium and kidney function are stable. -Cannot start beta-valarie or diltiazem as the patient continue to be hypotensive ? Recommend to keep potassium magnesium above 4 and 2 respectively to avoid any further arrhythmias ?Recommend primary care team to have goals of care discussion 3. Acute on chronic hypoxic respiratory failure 4. Bilateral community-acquired pneumonia versus hospital-acquired pneumonia ? Continue management as per primary care team 5. Large bowel obstruction ?Continue management as per primary care team 6. CVA with residual deficits 7. Chronic PEG tube and tracheostomy ?Continue current management per primary care team 8. DM2 ? Continue current management as per primary care team 9. Bilateral upper extremity DVTs ? Continue current management as per primary care team 10. Anxiety 11. Depression ? Continue current management as per primary care team 12. Recurrent UTIs ? Continue current management as per primary care team Continue rest of management as per primary team. We are grateful to be able to participate in Mr. Sosa' care. Thank you for the consult Plan of care discussed with attending Civil Rights Attorney, Dr. Georgia Mcmaahn MD PGY-1 Attending Provider Attestation/Addendum I have personally seen and examined the patient separately on the above date of service and discussed the plan of care with the resident. I reviewed the resident Dr. Allen consultation progress note and agree with the resident findings and plan in the note above and have also edited the documentation to reflect my findings and plan. Kit Ho M.D. Interventional Cardiology
[2024-06-08] MEDS: Norepinephrine/D5W 8mg/250ml 8 MG/250 ML BAG 38.117 MG IV (09:55)
--- NOTE | 2024-06-08 11:05 | ESPR_ITS ---
Documentation for date of: 06/08/24 Subjective Subjective Interval history: The patient is a 73-year-old male with previous medical history of CVA, severe cognitive deficit, chronic PEG tube and tracheostomy placement, hyperlipidemia, diabetes mellitus, recurrent UTIs, depression, anxiety, upper extremity bilateral DVT who is a subacute facility resident. He was brought to the hospital due to constipation and abdominal distention for 5 days. Earlier he had similar problems and received enema, had a bowel movement and was transferred back to the facility. He had a manual disimpaction and copious amount of soft stools was evacuated by Dr. Cramer. Rectal tube was placed. Later in admission patient had developed fever, became tachycardic, tachypneic. Imaging showed bilateral pneumonia with continued to worsen, he was started on fluids. He was not able to maintain MAP more than 65, was started on Levophed. Also, EKG showed A-fib with RVR and was started on amiodarine drip. He continued to have multiple bowel movements. His labs showed hypokalemia and hypernatremia. His labs throughout admissionshowed uptrending WBC, hypernatremia, persistent hypokalemia and rapidly declining kidney functions. ICU team had a conversation with patient's family over regarding goals of care, patient's family decided to proceed with full treatment but not to proceed with chest compressions in case of cardiac arrest, patient is limited code. Bank Accountant Dr. Reed was consulted due to ZACH and electrolyte abnormalities treaent and management. 06/05/2024: Patient was seen and examined by the bedside in the ICU. Saturating in the low 90s on FiO2 70%. Continues to require Levophed support. Labs showed sodium 151, potassium 2.9, chloride 113, bicarb 21.3, BUN 57, creatinine 3.2, EGFR 20, glucose 122, corrected calcium 8.4, AST 209, ALT 78, albumin 2.4. Due to hemodynamic instability and patient continuing to require Levophed, will hold off dialysis for today and will try to correct the electrolyte abnormalities and start free water flushes at 100 mL/h. Repeat renal panel showed sodium 150, potassium 3.5, chloride 113, BUN 58, creatinine 3.4, EGFR 18. 06/06/2024: Patient seen and examined at the bedside in the ICU. Today patient opens eyes to the verbal stimulation, but does not follow the objects or follow commands, continues to have rotatory nystagmus and left-sided gaze fixation. Yesterday patient's family decided to proceed with dialysis, dialysis treatment was ended early due to catheter not functioning, after attempting a bowel flush both ports remains sluggish. Dialysis session was stopped. Blood in the arterial line returned but blood and the venous line clotted was unable to return. CBC stat showed hemoglobin 7.3, hemoglobin earlier this day was 8.0. Today patient had a repeat dialysis session, 1 L of fluid was removed. A.m. labs showed hemoglobin 7.4, hematocrit 21.2, platelets 45, INR 1.4, fibrinogen 515, D-dimer more than 3820. Sodium 143, potassium 3.0, BUN 39, creatinine 2.1, lactic acid 3.4. 06/07/2024: Patient seen and examined at bedside in ICU, unable to tolerate dialysis, patient was given IV albumin, blood pressure does not tolerate dialysis treatment. Patient was able to complete dialysis yesterday, had about 804 mL removed, was given 1 unit of IV albumin. Patient's labs reviewed, show WBC 14.2, RBC 2.27, hemoglobin 6.6, hematocrit 18.7, platelet count 20,000, sodium 141, potassium 3.5, bicarb 19.7, BUN 54, creatinine 3.2, GFR 20, total bilirubin 1.7 AST 167 ALT 99, alk phos 188. Patient has poor prognosis, is unable to tolerate dialysis, recommended ICU team to discuss goals of care with family. 06/08/2024: Patient seen and examined at bedside in ICU. Yesterday was not able to unable to tolerate dialysis. Labs show WBC 17.9, hemoglobin 8.4, platelets 17, sodium 138, potassium 2.2, BUN 66, creatinine 3.4, EGFR 18. Patient is not a candidate for a dialysis due hemodynamic instability and developing DIC. Will continue to monitor, patient's prognosis remains poor. Exam Vital Signs Temp Pulse Resp BP Pulse Ox O2 Del Method O2 Flow Rate 97.5 F 92 28 H 92/45 L 97 Mechanical Ventilation 90 06/08/24 08:00 06/08/24 10:45 06/08/24 10:45 06/08/24 10:45 06/08/24 10:45 06/07/24 17:00 06/07/24 17:00 FiO2 75 06/08/24 10:26 Narrative Exam Gen: Chronically ill-appearing elderly male. HEENT: NCAT, PERRLA, anicteric conjunctivae. Left sided gaze fixation with rotatory nystagmus. CVS: normal S1 and S2. RRR. No M/R/G. Resp: CTA B/L. No rhonchi, rales, crackles or wheezing. Abd: soft, non-tender, non-distended. BS decreased. G-tube site unremarkable. MSK: 2+ lower extremity edema. Scrotal anasarca. Left foot cyanotic, poor circulation. Neuro: Alert and oriented x0. Psych: impossible to assess. Objective Labs 06/10/24 05:48 06/10/24 05:48 Labs: Laboratory Results - last 24 hr 06/07/24 06/07/24 06/08/24 08:07 09:00 00:06 WBC RBC Hgb 8.8 L D Hct 25.6 L MCV MCH MCHC RDW Std Deviation Plt Count Neut % (Auto) Lymph % (Auto) [place] % (Auto) Eos % (Auto) Baso % (Auto) Neut # (Auto) Lymph # (Auto) [place] # (Auto) Eos # (Auto) Baso # (Auto) Immature Gran # (Auto) Absolute Nucleated RBC Immature Gran % Nucleated RBC % Smear Path Review Cancelled Sodium Potassium Chloride Carbon Dioxide Anion Gap BUN Creatinine Estim Creat Clear Calc eGFR BUN/Creatinine Ratio Glucose Calculated Osmolality Calcium Corrected Calcium Phosphorus Magnesium Total Bilirubin AST ALT Alkaline Phosphatase Lactate Dehydrogenase 458 H Total Protein Albumin Globulin Albumin/Globulin Ratio Misc Test Result Blood Type O Positive Antibody Screen NEGATIVE Crossmatch See Detail Blood Bank Wristband ID Yes Blood Bank Comment PLATP Ready 06/08/24 04:58 WBC 17.9 H RBC 2.87 L Hgb 8.4 L Hct 23.3 L MCV 81 MCH 29.3 MCHC 36.1 RDW Std Deviation 47.8 H Plt Count 17 L* Neut % (Auto) 88 H Lymph % (Auto) 4 L [place] % (Auto) 4 Eos % (Auto) 3 Baso % (Auto) 0 Neut # (Auto) 15.8 H Lymph # (Auto) 0.6 L [place] # (Auto) 0.7 Eos # (Auto) 0.5 Baso # (Auto) 0.1 Immature Gran # (Auto) 0.19 H Absolute Nucleated RBC 0.27 H Immature Gran % 1 H Nucleated RBC % 2 H Smear Path Review Sodium 138 Potassium 2.2 L* D Chloride 102 Carbon Dioxide 21.9 Anion Gap 14 BUN 66 H Creatinine 3.4 H Estim Creat Clear Calc 16.4 L eGFR 18 L BUN/Creatinine Ratio 19 Glucose 134 H Calculated Osmolality 296 H Calcium 7.6 L Corrected Calcium 8.8 Phosphorus 3.7 Magnesium 1.9 Total Bilirubin 1.4 H AST 75 H ALT 71 H Alkaline Phosphatase 171 H Lactate Dehydrogenase Total Protein 4.0 L Albumin 2.5 L Globulin 1.5 L Albumin/Globulin Ratio 1.7 Misc Test Result Platelets confirmed Blood Type Antibody Screen Crossmatch Blood Bank Wristband ID Blood Bank Comment ABG Interpretation ABG results: 05/31/24 05/31/24 05/31/24 09:33 14:33 16:21 ABG pH 7.25 L 7.18 L* 7.30 L D ABG pCO2 68 H 78 H* D 57 H D ABG pO2 88 124 H D 69 L D ABG HCO3 30 H 29 H 28 H ABG O2 Saturation 96 99 H 94 ABG Base Excess 2 -1 1 VBG pH VBG pCO2 VBG pO2 VBG Base Excess 06/01/24 06/02/24 06/04/24 07:51 18:15 16:07 ABG pH 7.49 H D 7.47 H ABG pCO2 37 D 44 ABG pO2 49 L* D 48 L* ABG HCO3 28 H 32 H ABG O2 Saturation 89 L 86 L ABG Base Excess 5 H 7 H VBG pH 7.45 VBG pCO2 31 L VBG pO2 64 H VBG Base Excess -2 06/06/24 06/07/24 10:24 05:12 ABG pH 7.30 L ABG pCO2 47 ABG pO2 56 L* ABG HCO3 23 ABG O2 Saturation 83 L ABG Base Excess -3 VBG pH 7.35 VBG pCO2 46 D VBG pO2 52 VBG Base Excess 0 Quality Measures Quality Measures VTE prophylaxis Advance care planning discussed with:: other Assessment & Plan Assessment Current Active Medications: Generic Name Dose Route Start Last Admin Trade Name Freq PRN Reason Stop Dose Admin Acetaminophen 650 mg 06/04/24 15:09 06/04/24 16:40 Acetaminophen Lindsey 325 Mg/10 Ml Udc GT 07/04/24 15:08 650 mg Q6HR PRN Administration Pain Or Fever > 100.4 Albuterol/Ipratropium 3 ml 06/04/24 15:33 Albuterol/Ipratropium (Duoneb) Rt [place] 3 Ml Nebu INH 07/04/24 15:32 Q2HR PRN SHORTNESS OF BREATH OR WHEEZE Amiodarone HCl 200 mg 06/05/24 21:00 06/08/24 08:24 Amiodarone Hcl 200 Mg Tablet GT 07/05/24 20:59 200 mg BID XOCHITL Administration Calcium Acetate 667 mg 06/08/24 08:45 06/08/24 08:38 Calcium Acetate 667 Mg Tablet GT 07/04/24 18:44 667 mg TIDWM XOCHITL Administration Dextrose 25 ml 06/04/24 15:32 Dextrose 50%-Water Inj 50 Ml Syringe IV 07/04/24 15:31 Q15MIN PRN BG 50-70 responsive npo pt Dextrose 50 ml 06/04/24 15:32 Dextrose 50%-Water Inj 50 Ml Syringe IV 07/04/24 15:31 Q15MIN PRN BG <50 OR BG <70 & pt unresponsive Heparin Sodium (Porcine) 5,000 unit 06/04/24 22:00 06/06/24 06:18 Heparin Sod Inj 5000 Unit/Ml Vial SC 06/18/24 21:59 5,000 unit Q8HR XOCHITL Administration Heparin Sodium (Porcine) 2,200 unit 06/05/24 17:03 06/07/24 08:55 Heparin Sod Inj 1000 Unit/Ml Vial 10 Ml INDWELLCAT 06/19/24 17:02 2,200 unit PRN PRN Administration DIALYSIS Norepinephrine/Dextrose 8 mg in 250 mls @ 6.572 mls/hr 06/03/24 11:37 06/08/24 09:55 Levophed In D5w 8mg/250ml IV 07/03/24 11:36 0.29 mcg/kg/min .Q24H PRN 38.117 mls/hr PER PROTOCOL Administration Protocol 0.05 MCG/KG/MIN Levofloxacin/Dextrose 500 mg in 100 mls @ 100 mls/hr 06/06/24 18:30 06/06/24 18:17 Levaquin Ivpb IV 06/13/24 18:29 100 mls/hr Q48H XOCHITL Administration Albumin Human 25 gm in 100 mls @ 100 mls/min 06/05/24 17:05 06/07/24 08:32 Albuminar-25 Ivpb IV Infused PRN PRN Infusion DIALYSIS Fentanyl Citrate 2,500 mcg in 250 mls @ 2.5 mls/hr 06/06/24 08:54 06/08/24 09:00 Sublimaze Inj 2,500 Mcg/250 Ml Bag IV 06/11/24 08:53 25 mcg/hr .Q24H PRN 2.5 mls/hr PER PROTOCOL Titration Protocol 25 MCG/HR Propofol 1,000 mg in 100 mls @ 2.025 mls/hr 06/06/24 08:55 06/08/24 09:46 Diprivan Ivpb IV 07/06/24 08:54 25 mcg/kg/min .Q24H PRN 10.125 mls/hr PER PROTOCOL Titration Protocol 5 MCG/KG/MIN Clindamycin/Sodium Chloride 600 mg in 50 mls @ 100 mls/hr 06/07/24 18:00 06/08/24 05:49 Cleocin/Ns Ivpb IV 06/14/24 17:59 100 mls/hr Q6HR XOCHITL Administration Insulin Human Regular 0 unit 06/04/24 18:00 06/08/24 05:49 Insulin Hum Regular 1 Unit/0.01 Ml (Per Unit) SC 07/04/24 17:59 1 unit Q6HR XOCHITL Administration Protocol Lactulose 20 gm 06/08/24 09:00 Lactulose Syrup 20 Gm/30 Ml Udc GT 07/04/24 21:59 QDAY XOCHITL Protocol Pantoprazole Sodium 40 mg 06/04/24 15:30 06/08/24 08:24 Pantoprazole Inj 40 Mg Vial IVP 07/04/24 15:29 40 mg QDAY XOCHITL Administration Pharmacy Consult 1 each 06/04/24 18:24 Pharmacy Renal Dose Adjustment 1 Ea XX 07/04/24 18:23 PRN PRN CONSULT Plan The patient is a 73-year-old male with previous medical history of CVA, severe cognitive deficit, chronic PEG tube and tracheostomy placement, hyperlipidemia, diabetes mellitus, recurrent UTIs, depression, anxiety, upper extremity bilateral DVT who is a subacute facility resident. He was brought to the hospital due to constipation and abdominal distention for 5 days. He also developed pneumonia and acute on chronic respiratory failure. His labs showed hypokalemia and hypernatremia. His labs throughout admissionshowed uptrending WBC, hypernatremia, persistent hypokalemia and rapidly declining kidney functions. Bank Accountant Dr. Reed was consulted due to ZACH and electrolyte abnormalities treaent and management. #ZACH - ATN #Hypokalemia #Hypernatremia, resolved Most likely due to ATN in the setting of septic shock. Patient unable to tolerate dialysis, hypotensive during treatment. Plan: -Patient unable to tolerate dialysis today, patient's blood pressure drops during treatment and lines get clotted. -Recommended ICU team to discuss goals of care with family due to worsening patient's condition and inability to tolerate dialysis. ?Replete electrolytes as necessary ?Monitor daily CMP ?Avoid nephrotoxic agents ?Renally dose medications #Acute encephalopathy #CVA with residual deficits #New onset of A-fib #Shock #Acute on chronic hypoxic respiratory failure #ARDS #Severe bilateral pneumonia #Large bowel obstruction improving #Hypokalemia #Leukocytosis #Normocytic anemia #Bacterial pneumonia #Muscle atrophy - management as per primary Plan of care discussed with attending Dr. Reed. Cuca Kaplan MD, PGY 1. Attending Provider Attestation/Addendum Patient seen and examined with resident physician Dr. Thurman. Note reviewed, agree with findings and recommendations. Patient remains in ICU. On pressors. wanting all aggressive measures. However due to hemodynamic instability unable to do dialysis. Patient clotting off the dialyzer. Cannot give heparin drip due to thrombocytopenia. Suspect patient in DIC. Spoke to primary team.
--- NOTE | 2024-06-08 14:31 | XR_ITS ---
Examination: AP chest single view Technique: AP portable semiupright chest single view Exam date and time: June 08, 2024 1444 hrs. Indications: Pneumonia ARDS hypoxic respiratory failure this week Findings: Severe bilateral lung opacity No major cardiac enlargement Tracheostomy tube tip 6.5 cm above delmy Moderate osteopenia Impression: Severe bilateral pneumonia ARDS pattern again noted
--- NOTE | 2024-06-08 15:11 | PD.IMPROG ---
Documentation for date of: 06/08/24 Subjective Subjective Interval history: Patient evaluated Critically sick Acute hypoxic respiratory failure requiring different vent settings Exam Vital Signs Temp Pulse Resp BP Pulse Ox O2 Del Method O2 Flow Rate 97.8 F 127 H 28 H 103/59 L 97 Mechanical Ventilation 90 06/08/24 12:00 06/08/24 13:15 06/08/24 13:15 06/08/24 13:15 06/08/24 13:15 06/07/24 17:00 06/07/24 17:00 FiO2 80 06/08/24 11:59 Objective Labs 06/09/24 16:49 06/09/24 16:49 Labs: Laboratory Results - last 24 hr 06/07/24 06/08/24 06/08/24 09:00 00:06 04:58 WBC 17.9 H RBC 2.87 L Hgb 8.8 L D 8.4 L Hct 25.6 L 23.3 L MCV 81 MCH 29.3 MCHC 36.1 RDW Std Deviation 47.8 H Plt Count 17 L* Neut % (Auto) 88 H Lymph % (Auto) 4 L [place] % (Auto) 4 Eos % (Auto) 3 Baso % (Auto) 0 Neut # (Auto) 15.8 H Lymph # (Auto) 0.6 L [place] # (Auto) 0.7 Eos # (Auto) 0.5 Baso # (Auto) 0.1 Immature Gran # (Auto) 0.19 H Absolute Nucleated RBC 0.27 H Immature Gran % 1 H Nucleated RBC % 2 H Smear Path Review Cancelled Sodium 138 Potassium 2.2 L* D Chloride 102 Carbon Dioxide 21.9 Anion Gap 14 BUN 66 H Creatinine 3.4 H Estim Creat Clear Calc 16.4 L eGFR 18 L BUN/Creatinine Ratio 19 Glucose 134 H Calculated Osmolality 296 H Calcium 7.6 L Corrected Calcium 8.8 Phosphorus 3.7 Magnesium 1.9 Total Bilirubin 1.4 H AST 75 H ALT 71 H Alkaline Phosphatase 171 H Total Protein 4.0 L Albumin 2.5 L Globulin 1.5 L Albumin/Globulin Ratio 1.7 Misc Test Result Platelets confirmed Blood Type O Positive Antibody Screen NEGATIVE Crossmatch See Detail Blood Bank Wristband ID Yes Blood Bank Comment PLATP Ready Impressions Impression: # Metabolic encephalopathy with residual effect of CVA # Acute hypoxic respiratory failure # Septic shock # Enteral feeding via PEG tube ABG Interpretation ABG results: 05/31/24 05/31/24 05/31/24 09:33 14:33 16:21 ABG pH 7.25 L 7.18 L* 7.30 L D ABG pCO2 68 H 78 H* D 57 H D ABG pO2 88 124 H D 69 L D ABG HCO3 30 H 29 H 28 H ABG O2 Saturation 96 99 H 94 ABG Base Excess 2 -1 1 VBG pH VBG pCO2 VBG pO2 VBG Base Excess 06/01/24 06/02/24 06/04/24 07:51 18:15 16:07 ABG pH 7.49 H D 7.47 H ABG pCO2 37 D 44 ABG pO2 49 L* D 48 L* ABG HCO3 28 H 32 H ABG O2 Saturation 89 L 86 L ABG Base Excess 5 H 7 H VBG pH 7.45 VBG pCO2 31 L VBG pO2 64 H VBG Base Excess -2 06/06/24 06/07/24 10:24 05:12 ABG pH 7.30 L ABG pCO2 47 ABG pO2 56 L* ABG HCO3 23 ABG O2 Saturation 83 L ABG Base Excess -3 VBG pH 7.35 VBG pCO2 46 D VBG pO2 52 VBG Base Excess 0 Assessment & Plan A&P Narrative 73-year-old male with past medical history of 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 1. A-fib with RVR, new onset 2. Hypokalemia ?Patient developed A-fib with RVR on 06/02/2024 ?Initial EKG showed on admission sinus tachycardia. ?Repeat EKG on 05/31/2024 that showed sinus rhythm ?EKG on 06/02/2024 showed A-fib with RVR and at this time patient's potassium was 2.9. ?Patient is currently DNR/DNI as per family's wishes ? Patient' family did not want any cardioversion at this time. Plan: ?Continue amiodarone drip for now and add amiodarone 200 p.o BID ?Recommend start patient on Eliquis 5 mg twice daily ? Recommend to keep potassium magnesium above 4 and 2 respectively to avoid any further arrhythmias ?Recommend primary care team to have goals of care discussion 06/04/2024 Patient is on mechanical ventilation at the present point of time. Family again changed his status to limited code and wanted to Patient continues to be in atrial fibrillation with RVR and patient is still on amiodarone drip. Recommend to continue amiodarone drip at 1 mg/min as detailed yesterday. Recommend to also start oral amiodarone 400 mg twice daily for loading amiodarone completely Can give additional digoxin if needed for rate control when patient potassium and kidney function are stable. Cannot start beta-valarie or diltiazem as the patient is hypotensive and is requiring pressors. Family to meet again to discuss the goals of care and regarding the further plan of treatment. Continue heparin drip for anticoagulation and can change to Eliquis 5 mg twice daily if no further procedures planned. Keep potassium greater than 4 in addition greater than 2.0 at all times. 3. Acute on chronic hypoxic respiratory failure 4. Bilateral community-acquired pneumonia versus hospital-acquired pneumonia ? Continue management as per primary care team 5. Large bowel obstruction ?Continue management as per primary care team 6. CVA with residual deficits 7. Chronic PEG tube and tracheostomy ?Continue current management per primary care team 8. DM2 ? Continue current management as per primary care team 9. Bilateral upper extremity DVTs ? Continue current management as per primary care team 10. Anxiety 11. Depression ? Continue current management as per primary care team 12. Recurrent UTIs ? Continue current management as per primary care team There is a high probability of sudden, clinically significant or life threatening deterioration in the patient condition which required the highest level of physician preparedness to intervene urgently. I have personally spent total of 65 minutes of critical care time yesterday, exclusive of time spent on any procedures, in evaluation and management of this critically ill patient. Management of rest of the medical conditions as per primary team and other consultants. Thank you for the consult and allowing me to participate in the care of the patient. Cardiology will continue to follow. Kit Ho M.D. Interventional Cardiology Time Spent With Patient Time: Total time spent is greater than 50% in coordination of care (as documented) at patient's floor/unit and/or counseling patient:
[2024-06-08] MEDS: Norepinephrine/D5W 8mg/250ml 8 MG/250 ML BAG 51.261 MG IV (15:53)
--- NOTE | 2024-06-08 16:38 | ESPR_ITS ---
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 Patient recently came to the ED on 05/24/2024 with similar complaints and received enema following which patient had a bowel movement and transferred back to the facility. Later patient was still found to have constipation for which Dr. Durant was consulted and patient received different bowel regimens and GoLytely with no much effect on constipation. As the patient is having progressive severe abdominal distention with constipation despite bowel regimens and GoLytely he was brought to the hospital today. No history of fever, vomiting. Dr. Durant was consulted and he tried to manually disimpact the stools but unsuccessful. Later Dr Cramer was consulted. ED Course: -Initial vitals were blood pressure 140/84 mmHg, pulse rate 101 bpm, respiratory rate 22/min, SpO2 98% on mechanical ventilator on AC/VC mode. -Labs significant for WBC 9.1, Hb 11.8, platelets 241, sodium 138, potassium 3.3, chloride 90, bicarb 37.1, lactate 1.2, AST 41, ALT 23, procalcitonin 0.07 -CT abdomen/pelvis showed markedly distended large bowel with rectal thickening, massive stool impaction in the rectosigmoid colon and right inguinal hernia with urinary bladder as content -In the ED, patient was given potassium, cefepime. -Patient was admitted for Past medical history: CVA, hypertension, hyperlipidemia, diabetes mellitus, chronic PEG, COPD Past surgical history: PEG tube placement Social history: Unknown Patient developed worsening labs, respiratory distress with hypoxia, fever, and hypotension on the floors prompting rapid response. At bedside patient had MAP 41, with weak and slow peripheral pulse. Patient had clear mottling of feet, knees, hands. Chest x-ray showed worsening infiltrates of both lungs, especially prominent in left lung. Patient upgraded to ICU for worsening acute hypoxic respiratory failure, hypotension with weak peripheral pulses. Patient did not require pressors, received 2 L bolus lactated Ringer's with significant improvement in blood pressure. Peripheral pulse improved as well, heart rate WNL. Patient had multiple bowel movements with stabilizing of respiratory function, downgraded to telemetry. ICU consulted due to afib with RVR, worsening hypotension, requiring pressers to maintain MAP >65, and worsening respiratory distress requiring bagging for 1 hour. GOC discussion was held this morning with patient's and son. Landing [place], hospitalist team, and RN were at bedside. Interpretive services were utilized. and son were updated with the critical nature of patient's condition, including shock, severe respiratory distress with hypoxia while on 100% FiO2, severe hypokalemia, hypernatremia, atrial fibrillation with rapid ventricular response, organ dysfunction/lactic acidosis (worsening ZACH without urine output, likely secondary to shock) in addition to chronic conditions (h/o CVA leaving patient bedbound and fully dependent, chronic respiratory failure, chronic PEG). Family understood the poor prognosis for the patient, and requested to speak with patient's other children. Later, family made a decision and would like to initiate comfort measures once the youngest son is at bedside, likely early childhood education coordinator on 06/04. Plan is to discontinue all medications and lab draws at this time, other than levophed via peripheral IV, until patient's son arrives on 06/04. Once son arrives, hospitalist team will discontinue levophed and start comfort measures. Family is aware that PIV may fail, and patient may possibly pass overnight. 06/04/2024: Rapid response was called when patient developed afib with RVR. Hospitalist team initiated amiodarone drip for patient. Family re-initiated goals of care discussion, deciding to change patient to be limited code (no compressions) and otherwise reciev full treatment, including line placements and dialysis if necessary. Patient was then transferred to ICU for intensive management. Hospitalist team resumed patients previous meds. To facilitate lab draws and dialysis if necessary, a tri-flow central line was placed. After US exam of the neck, it was determined that even with high IJ placement there was not enough room around tracheostomy strap to maintain sterility, and a femoral line was placed without incident. Blood cultures, labs, CXR ordered. CXR showed severe diffuse pneumonia. Patient receiving broad spectrum antibiotics. Patient on pressors. 06/05/2024: Patient seen and examined at bedside. Neurologic status unchanged. Plan for dialysis today, per Dr. Reed patient was too unstable for dialysis given poor hemodynamics and respiratory status. Family was updated on patients condition and explained risks of dialysis, elected to move forward with dialysis. Dialysis planned for this evening without fluid removal. Patient continues to require pressers. Per night team, patient developed increased vertical nystagmus and belly movements, resolved with Ativan 2mg x1. 06/06/2024: Patient seen and examined at bedside. Patient received dialysis today. Developed worsening afib with tachycardia on dialysis, patient became agitated and asynchronous with vent. Propofol and fentanyl were initiated to maintain vent synchronicity, amiodrone 150mg bolus x1 given. Patient was able to complete dialysis with 800ml fluid removal. Tidal volume decreased from 450 to 380 for lung protective strategy in setting of ARDS. Plan to initiate tube feeds today. Patient has worsening thrombocytopenia, no evidence of hemorrhaging. 06/07/2024: Patient seen and examined at bedside. Dialysis attempted, however patient's blood was too thick to be properly dialyzed. In addition, patient developed tachycardia and hypotension. Per nephrology, patient is not a candidate for further dialysis sessions. Patient remains sedated and ventilated. Hemoglobin and platelets dropped, 1 unit PRBC and 1 unit platelets ordered. Patient developed sinus tachycardia during PRBC transfusion, rate slowed from 125 ml/hr to 75 ml/hr with improvement in tachycardia. Bumex 3mg IV x1 given without any urinary output. Contact precautions initiated due to Acinetobacter baumannii/haemol infection. Family updated regarding patient's condition and poor prognosis. 06/08/2024: Patient seen and examined at bedside. Spoke with blueprint developer who reiterated patient is not to a candidate for dialysis. Sedation tapered off. Patient had episode of hypotension and respiratory distress with hypoxia, managed emergent bronchoscopy with lavage of bilateral lungs and with vent setting alterations: Tidal volume 400, rate 28, PEEP 12, FiO2 100%. Will continue to titrate FiO2 down as tolerated, maintaining SpO2 88-92% we will continue to titrate pressors as tolerated. Chest x-ray showed increased fluid in lungs. Patient continues to produce no urine. Worsening cyanosis of distal extremities. Platelet count 17, platelets ordered. Exam Vital Signs Temp Pulse Resp BP Pulse Ox O2 Del Method O2 Flow Rate 97.8 F 92 28 H 104/70 92 L Mechanical Ventilation 90 06/08/24 12:00 06/08/24 15:53 06/08/24 13:15 06/08/24 15:53 06/08/24 15:12 06/07/24 17:00 06/07/24 17:00 FiO2 100 06/08/24 15:12 Narrative Exam PE: Gen: Alert, poorly responsive. Tracheostomy. HEENT: NCAT, anicteric conjunctivae. Dry mucous membranes. Vertical nystagmus. CVS: No M/R/G. Afib with tachycardia. Resp: Coarse lung sounds. Rhonchi and wheezing all lung ansari. Abd: Abdomen distended, soft. PEG tube. MSK: Good ROM in BUE & BLE. Bilateral lower and upper extremity edema. Edematous scrotum. Right femoral tri-flow catheter. Left and right foot cyanosis, progressing. Neuro: CN II-XII grossly intact. Baseline nonverbal. Sometimes tracks sounds. Objective Labs 06/18/24 06:57 06/18/24 06:57 Labs: Laboratory Results - last 24 hr 06/07/24 06/08/24 06/08/24 09:00 00:06 04:58 WBC 17.9 H RBC 2.87 L Hgb 8.8 L D 8.4 L Hct 25.6 L 23.3 L MCV 81 MCH 29.3 MCHC 36.1 RDW Std Deviation 47.8 H Plt Count 17 L* Neut % (Auto) 88 H Lymph % (Auto) 4 L [place] % (Auto) 4 Eos % (Auto) 3 Baso % (Auto) 0 Neut # (Auto) 15.8 H Lymph # (Auto) 0.6 L [place] # (Auto) 0.7 Eos # (Auto) 0.5 Baso # (Auto) 0.1 Immature Gran # (Auto) 0.19 H Absolute Nucleated RBC 0.27 H Immature Gran % 1 H Nucleated RBC % 2 H Sodium 138 Potassium 2.2 L* D Chloride 102 Carbon Dioxide 21.9 Anion Gap 14 BUN 66 H Creatinine 3.4 H Estim Creat Clear Calc 16.4 L eGFR 18 L BUN/Creatinine Ratio 19 Glucose 134 H Calculated Osmolality 296 H Calcium 7.6 L Corrected Calcium 8.8 Phosphorus 3.7 Magnesium 1.9 Total Bilirubin 1.4 H AST 75 H ALT 71 H Alkaline Phosphatase 171 H Total Protein 4.0 L Albumin 2.5 L Globulin 1.5 L Albumin/Globulin Ratio 1.7 Misc Test Result Platelets confirmed Blood Type O Positive Antibody Screen NEGATIVE Crossmatch See Detail Blood Bank Wristband ID Yes Blood Bank Comment PLATP Ready ABG Interpretation ABG results: 05/31/24 05/31/24 05/31/24 09:33 14:33 16:21 ABG pH 7.25 L 7.18 L* 7.30 L D ABG pCO2 68 H 78 H* D 57 H D ABG pO2 88 124 H D 69 L D ABG HCO3 30 H 29 H 28 H ABG O2 Saturation 96 99 H 94 ABG Base Excess 2 -1 1 VBG pH VBG pCO2 VBG pO2 VBG Base Excess 06/01/24 06/02/24 06/04/24 07:51 18:15 16:07 ABG pH 7.49 H D 7.47 H ABG pCO2 37 D 44 ABG pO2 49 L* D 48 L* ABG HCO3 28 H 32 H ABG O2 Saturation 89 L 86 L ABG Base Excess 5 H 7 H VBG pH 7.45 VBG pCO2 31 L VBG pO2 64 H VBG Base Excess -2 06/06/24 06/07/24 10:24 05:12 ABG pH 7.30 L ABG pCO2 47 ABG pO2 56 L* ABG HCO3 23 ABG O2 Saturation 83 L ABG Base Excess -3 VBG pH 7.35 VBG pCO2 46 D VBG pO2 52 VBG Base Excess 0 Quality Measures Quality Measures VTE prophylaxis Advance care planning discussed with:: spouse Assessment & Plan Assessment Current Active Medications: Generic Name Dose Route Start Last Admin Trade Name Freq PRN Reason Stop Dose Admin Acetaminophen 650 mg 06/04/24 15:09 06/04/24 16:40 Acetaminophen Lindsey 325 Mg/10 Ml Udc GT 07/04/24 15:08 650 mg Q6HR PRN Administration Pain Or Fever > 100.4 Albuterol/Ipratropium 3 ml 06/04/24 15:33 Albuterol/Ipratropium (Duoneb) Rt Lindsey 3 Ml Nebu INH 07/04/24 15:32 Q2HR PRN SHORTNESS OF BREATH OR WHEEZE Amiodarone HCl 200 mg 06/05/24 21:00 06/08/24 08:24 Amiodarone Hcl 200 Mg Tablet GT 07/05/24 20:59 200 mg BID XOCHITL Administration Calcium Acetate 667 mg 06/08/24 08:45 06/08/24 11:25 Calcium Acetate 667 Mg Tablet GT 07/04/24 18:44 667 mg TIDWM XOCHITL Administration Dextrose 25 ml 06/04/24 15:32 Dextrose 50%-Water Inj 50 Ml Syringe IV 07/04/24 15:31 Q15MIN PRN BG 50-70 responsive npo pt Dextrose 50 ml 06/04/24 15:32 Dextrose 50%-Water Inj 50 Ml Syringe IV 07/04/24 15:31 Q15MIN PRN BG <50 OR BG <70 & pt unresponsive Heparin Sodium (Porcine) 5,000 unit 06/04/24 22:00 06/06/24 06:18 Heparin Sod Inj 5000 Unit/Ml Vial SC 06/18/24 21:59 5,000 unit Q8HR XOCHITL Administration Heparin Sodium (Porcine) 2,200 unit 06/05/24 17:03 06/07/24 08:55 Heparin Sod Inj 1000 Unit/Ml Vial 10 Ml INDWELLCAT 06/19/24 17:02 2,200 unit PRN PRN Administration DIALYSIS Norepinephrine/Dextrose 8 mg in 250 mls @ 6.572 mls/hr 06/03/24 11:37 06/08/24 16:21 Levophed In D5w 8mg/250ml IV 07/03/24 11:36 0.39 mcg/kg/min .Q24H PRN 51.261 mls/hr PER PROTOCOL Titration Protocol 0.05 MCG/KG/MIN Levofloxacin/Dextrose 500 mg in 100 mls @ 100 mls/hr 06/06/24 18:30 06/06/24 18:17 Levaquin Ivpb IV 06/13/24 18:29 100 mls/hr Q48H XOCHITL Administration Albumin Human 25 gm in 100 mls @ 100 mls/min 06/05/24 17:05 06/07/24 08:32 Albuminar-25 Ivpb IV Infused PRN PRN Infusion DIALYSIS Fentanyl Citrate 2,500 mcg in 250 mls @ 2.5 mls/hr 06/06/24 08:54 06/08/24 16:13 Sublimaze Inj 2,500 Mcg/250 Ml Bag IV 06/11/24 08:53 0 mcg/hr .Q24H PRN 0 mls/hr PER PROTOCOL Titration Protocol 25 MCG/HR Propofol 1,000 mg in 100 mls @ 2.025 mls/hr 06/06/24 08:55 06/08/24 13:28 Diprivan Ivpb IV 07/06/24 08:54 0 mcg/kg/min .Q24H PRN 0 mls/hr PER PROTOCOL Titration Protocol 5 MCG/KG/MIN Clindamycin/Sodium Chloride 600 mg in 50 mls @ 100 mls/hr 06/07/24 18:00 06/08/24 11:25 Cleocin/Ns Ivpb IV 06/14/24 17:59 100 mls/hr Q6HR XOCHITL Administration Insulin Human Regular 0 unit 06/04/24 18:00 06/08/24 11:37 Insulin Hum Regular 1 Unit/0.01 Ml (Per Unit) SC 07/04/24 17:59 1 unit Q6HR XOCHITL Administration Protocol Lactulose 20 gm 06/08/24 09:00 06/08/24 11:20 Lactulose Syrup 20 Gm/30 Ml Udc GT 07/04/24 21:59 Not Given QDAY XOCHITL Protocol Pantoprazole Sodium 40 mg 06/04/24 15:30 06/08/24 08:24 Pantoprazole Inj 40 Mg Vial IVP 07/04/24 15:29 40 mg QDAY XOCHITL Administration Pharmacy Consult 1 each 06/04/24 18:24 Pharmacy Renal Dose Adjustment 1 Ea XX 07/04/24 18:23 PRN PRN CONSULT Plan 73-year-old male with 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 Neuro: #Chronic encephalopathy #CVA with residual deficits Metabolic encephalopathy due to severe constipation, hypoxia, metabolic disturbances. Patient is nonverbal at baseline, per family at bedside he is normally somewhat interactive. Currently patient is responsive only to pain, opens eyes, does not track sounds. Patient became close to baseline, responds to loud sounds, does not follow commands or have purposeful movement. Patient became agitated during dialysis, sedated to maintain vent synchronicity. Patient no longer candidate for dialysis, weaning off sedation. -Monitor Cardio: #Septic shock Patient developed severe hypotension causing rapid response to be called, MAP 41. Patient had notable mottling of hands, knees, feet. Patient has had fevers, leukocytosis. Patient showed significant improvement after 2 L bolus lactated Ringer's, hypotension resolved. Patient was downgraded, and per family wishes labs and medications other than levophed were discontinued. Patient's family later elected to resume treatment. Patient developed new fevers, increased leukocytosis. Procal 8.19. Repeat blood cultures drawn. Patient started on levofloxacin based on previous cultures, dosed for acute kidney injury. -Close monitoring -Levophed, titrate as needed -Levofloxacin 750 mg IV x1, followed by Levofloxacin 500 mg IV q48h (Started 06/04) -Clindamycin 600mg IV q6h (started 06/07) -Follow-up blood cultures #Afib with RVR Patient developed afib with RVR prompting rapid response. Amio bolus given, drip completed. Worsening tachycardia during dialysis, resolved with 150mg bolus amiodorone x1. -amiodarone 200mg GT BID -telemonitoring Pulm: #Acute hypoxic respiratory failure #Aspiration pneumonia #ARDS Patient developed worsening hypoxia despite increasing FiO2 on the floors following massive aspiration. Chest x-ray shows significant bilateral pneumonia, more severe on the left side. Patient has significantly distended abdomen, present on lungs. ABG showed pH 7.18, pCO2 70, pO2 124. Vent settings changed to increase tidal volume and respiratory rate, repeat ABG showed pH 7.3, pCO2 57, pO2 69. Patient improved enough for downgrade to telemetry, was later upgraded back to ICU for worsening hypoxia, hypotension, afib with RVR. Patient continues to have high FiO2 requirements to maintain saturation. Tidal volume decreased from 450 to 380. After sedation discontinued, patient became hypoxic/hypertensive, initially managed with vent settings but required emergent bronchoscopy with lavage of bilateral lungs. Chest x-ray showed increasing fluid in lungs. -Maintain vent settings, wean down FiO2 as tolerated -Lung protective vent strategies -Duoneb as needed -Antibiotics as above GI: #Transaminitis DDx Medication effect vs. severe acute illness Patient has had mild transaminitis during hospital stay. Slightly uptrending, patient on levaquin and amiodarone. Timing does not match rise in LFTs, could be contributing factor. Downtrending -monitor #PEG tube Patient has chronic PEG tube. Feeds have been held due to large bowel obstruction, now resolved. -Tube feeds, 20ml/hr with 25ml/hr water flushes Renal: #ATN Patient developed ATN due to ischemia in setting of hypotension. Patient had left femoral tri-flow cath placed for dialysis. Patient had difficulty with dialysis. On third day, blood was too thick to properly dialyze. Patient deemed to unstable for furhter dialysis by blueprint developer. Family updated on patient status. Patient anuric. Bumex 3mg IV given x1 without urine output. Patient remains severely fluid overloaded. -Not suitable candidate for dialysis #Hypokalemia Patient has had severely low potassium, down to 2.2. Patient was given multiple doses of potassium chloride, potassium improved to 3.5. After family requested treatment, repeat labs were drawn, potassium 2.2. 60mEq GT and 10 mEq IV ordered. Patient receiving dialysis with potassium repletion. -Monitor -Replete as needed Endo: #DM Patient history -ISS Heme: #Thrombocytopenia due to DIC Patient has had mild thrombocytopenia, steadily worsening for several days. Recently downtrended to 47. No signs of thrombosis or hemorrhaging. DIC panel: PT 14.5, PTT 49, Fibrinogen 515, D-Dimer >3820. LDH elevated. Platelets dropped to 20, transfusing 1 unit -Monitor -Treat underlying conditions -Replace platelets if <20k #Leukocytosis Likely due to infection and reactive to patient's worsening overall status. -Monitor #Normocytic anemia Patient has chronic normocytic anemia, slightly worse than normal currently. No signs of bleeding. Dropped to 6.5 after attempted dialysis, 1 unit PRBC given -Monitor ID: #Sepsis Procal 8.19. Fevers. Patient received Vancomycin and Zosyn previously. Blood cultures grew MRSA, sputum cultures grew Acinetobacter baumannii/haemol. Will adjust antibiotic dosage for reduced creatinine clearance -Levofloxacin 750 mg IV x1, followed by Levofloxacin 500 mg IV q48h (Started 06/04) -Clindamycin 600mg IV q6h (started 06/07) -Tylenol as needed for fevers -contact precautions Skin/MSK: #Deep tissue injury Patient has deep tissue injury to right upper back. -bandaged #Stage two pressure ulcer Patient has stage 2 pressure ulcer to right buttock. -bandaged ICU Health maintenance: Mechanical ventilation: Yes Sedation:Yes Diet: Tube feeds via PEG DVT ppx: None GI ppx: Protonix Godinez: No IV lines: Peripheral IVs Central line: Femoral tri-flow Arterial line: No Code status: Limited Code: No compressions Plan of care discussed with attending Dr. Garland. Jayjay Malagon MD PGY-1 Attending Provider Attestation/Addendum Patient seen and examined with above resident, Jayjay Malagon MD. I agree with the findings, assessment, and plan of care as documented except for any differences below. We will begin to wean sedation as is unclear if the patient is at his baseline mental status or continues to be with worsening encephalopathy secondary to underlying infection. Patient did have episode of significant desaturation and suspect that he is becoming volume overloaded as we are unable to complete dialysis with recurrent clotting of circuit and severe hypotension making it difficult even with vasopressor support. Patient with no significant urine output at this point. Patient did have desaturation during the day requiring emergent bronchoscopy. Was able to clear her airways and with bagging able to recruit for maintaining oxygenation between 88 to 92%. Unable to significantly adjust ventilator settings with continued high FiO2 at 100%. Patient with continued cyanosis and distal loss of circulation though he does have pulses on USG. Component of DIC secondary to septic shock and likely pre- existing peripheral artery disease given the patient's remote history of CVA as well in the past. Patient not a candidate for heparin or aspirin because of risk of bleeding nor is a surgical candidate at this point for intervention. Will try to minimize vasopressor dosing as this is likely contributing to small vessel vasoconstriction and worsening distal perfusion. Fortunately patient without upper extremity involvement. Total critical care time: I personally spent 45 minutes for review of physiologic parameters, directing plan of care throughout the day, coordination of care with other subspecialties, and counseling patient's family. This is exclusive of time spent teaching housestaff or performing any separate billable procedures. Patient continues to require critical care services for acute respiratory failure requiring mechanical ventilation and septic shock on vasopressor support underlying healthcare associated pneumonia. Course complicated by multiorgan failure. Patient continues to be at high risk for mortality requiring close monitoring only available in the intensive care unit.
[2024-06-08] MEDS: LEVOFLOXACIN/D5W 500 MG IVPB 500 MG/100 ML BAG 100 MG IV (18:05)
[2024-06-08] MEDS: Artificial Tears 225 DROP/15 ML BTL BOTH EYES (20:14)
[2024-06-08] MEDS: Norepinephrine/D5W 8mg/250ml 8 MG/250 ML BAG 53.889 MG IV (21:07)
[2024-06-09] VITALS (115 sets, daily range): BP systolic 62–183; BP diastolic 42–158; PULSE 61–846; RESP 19–29; TEMP 35.9–37.2; O2SAT 83–100; BMI 26.0
[2024-06-09] MEDS: INSULIN HUM REGULAR 1 UNIT/0.01 ML (PER UNIT) SC (00:01)
[2024-06-09] MEDS: CLINDAMYCIN/NS 600 MG IVPB 600 MG/50 ML BAG 100 MG IV ×4 (00:01→19:08)
[2024-06-09] MEDS: Norepinephrine/D5W 8mg/250ml 8 MG/250 ML BAG 51.261 MG IV (02:15)
[2024-06-09] MEDS: Norepinephrine/D5W 8mg/250ml 8 MG/250 ML BAG 48.632 MG IV (07:24)
[2024-06-09] MEDS: PANTOPRAZOLE INJ 40 MG VIAL IVP (08:54)
[2024-06-09] MEDS: AMIODARONE HCL 200 MG TABLET GT ×2 (08:55→20:58)
[2024-06-09] MEDS: CALCIUM ACETATE 667 MG TABLET GT ×3 (08:55→19:08)
--- NOTE | 2024-06-09 10:51 | PD.NEPHPROG ---
Documentation for date of: 06/09/24 Subjective Subjective Interval history: Interval history: The patient is a 73-year-old male with previous medical history of CVA, severe cognitive deficit, chronic PEG tube and tracheostomy placement, hyperlipidemia, diabetes mellitus, recurrent UTIs, depression, anxiety, upper extremity bilateral DVT who is a subacute facility resident. He was brought to the hospital due to constipation and abdominal distention for 5 days. Earlier he had similar problems and received enema, had a bowel movement and was transferred back to the facility. He had a manual disimpaction and copious amount of soft stools was evacuated by Dr. Cramer. Rectal tube was placed. Later in admission patient had developed fever, became tachycardic, tachypneic. Imaging showed bilateral pneumonia with continued to worsen, he was started on fluids. He was not able to maintain MAP more than 65, was started on Levophed. Also, EKG showed A-fib with RVR and was started on amiodarine drip. He continued to have multiple bowel movements. His labs showed hypokalemia and hypernatremia. His labs throughout admissionshowed uptrending WBC, hypernatremia, persistent hypokalemia and rapidly declining kidney functions. ICU team had a conversation with patient's family over regarding goals of care, patient's family decided to proceed with full treatment but not to proceed with chest compressions in case of cardiac arrest, patient is limited code. [employer] Mitigation Officer Dr. Reed was consulted due to ZACH and electrolyte abnormalities treaent and management. 06/05/2024: Patient was seen and examined by the bedside in the ICU. Saturating in the low 90s on FiO2 70%. Continues to require Levophed support. Labs showed sodium 151, potassium 2.9, chloride 113, bicarb 21.3, BUN 57, creatinine 3.2, EGFR 20, glucose 122, corrected calcium 8.4, AST 209, ALT 78, albumin 2.4. Due to hemodynamic instability and patient continuing to require Levophed, will hold off dialysis for today and will try to correct the electrolyte abnormalities and start free water flushes at 100 mL/h. Repeat renal panel showed sodium 150, potassium 3.5, chloride 113, BUN 58, creatinine 3.4, EGFR 18. 06/06/2024: Patient seen and examined at the bedside in the ICU. Today patient opens eyes to the verbal stimulation, but does not follow the objects or follow commands, continues to have rotatory nystagmus and left-sided gaze fixation. Yesterday patient's family decided to proceed with dialysis, dialysis treatment was ended early due to catheter not functioning, after attempting a bowel flush both ports remains sluggish. Dialysis session was stopped. Blood in the arterial line returned but blood and the venous line clotted was unable to return. CBC stat showed hemoglobin 7.3, hemoglobin earlier this day was 8.0. Today patient had a repeat dialysis session, 1 L of fluid was removed. A.m. labs showed hemoglobin 7.4, hematocrit 21.2, platelets 45, INR 1.4, fibrinogen 515, D-dimer more than 3820. Sodium 143, potassium 3.0, BUN 39, creatinine 2.1, lactic acid 3.4. 06/07/2024: Patient seen and examined at bedside in ICU, unable to tolerate dialysis, patient was given IV albumin, blood pressure does not tolerate dialysis treatment. Patient was able to complete dialysis yesterday, had about 804 mL removed, was given 1 unit of IV albumin. Patient's labs reviewed, show WBC 14.2, RBC 2.27, hemoglobin 6.6, hematocrit 18.7, platelet count 20,000, sodium 141, potassium 3.5, bicarb 19.7, BUN 54, creatinine 3.2, GFR 20, total bilirubin 1.7 AST 167 ALT 99, alk phos 188. Patient has poor prognosis, is unable to tolerate dialysis, recommended ICU team to discuss goals of care with family. 06/08/2024: Patient seen and examined at bedside in ICU. Yesterday was not able to unable to tolerate dialysis. Labs show WBC 17.9, hemoglobin 8.4, platelets 17, sodium 138, potassium 2.2, BUN 66, creatinine 3.4, EGFR 18. Patient is not a candidate for a dialysis due hemodynamic instability and developing DIC. Will continue to monitor, patient's prognosis remains poor. 06/09/2024 patient currently seen in ICU. Remains on the ventilator. Labs reviewed. unable to do dialysis due to hemodynamic instability, platelet count of 17,000 and extremely thick blood which is clotting of the dialyzer's. Cannot do heparin drip due to thrombocytopenia. Suspect patient in DIC. Prognosis remains poor. Plan of care discussed with Dr. Garland and ICU team. Review of Systems Review of Systems ROS Unobtainable: unobtainable due to mental status and unobtainable due to medical condition Exam Vital Signs Temp Pulse Resp BP Pulse Ox O2 Del Method O2 Flow Rate 36.6 C 90 28 H 120/62 99 Mechanical Ventilation 90 06/09/24 08:00 06/09/24 10:30 06/09/24 10:30 06/09/24 10:30 06/09/24 10:30 06/09/24 04:00 06/07/24 17:00 FiO2 80 06/09/24 10:09 Narrative Exam Gen: Chronically ill-appearing elderly male. HEENT: Left sided gaze fixation with rotatory nystagmus. CVS: normal S1 and S2. RRR. No M/R/G. Resp: CTA B/L. No rhonchi, rales, crackles or wheezing. Abd: soft, non-tender, non-distended. BS decreased. G-tube site unremarkable. MSK: 2+ lower extremity edema. Scrotal anasarca. Left foot cyanotic, poor circulation. Neuro: sedated Objective Labs 06/10/24 05:48 06/10/24 05:48 Labs: Laboratory Results - last 24 hr 06/07/24 09:00 Blood Type O Positive Antibody Screen NEGATIVE Crossmatch See Detail Blood Bank Wristband ID Yes Blood Bank Comment PLATP Ready ABG Interpretation ABG results: 05/31/24 05/31/24 05/31/24 09:33 14:33 16:21 ABG pH 7.25 L 7.18 L* 7.30 L D ABG pCO2 68 H 78 H* D 57 H D ABG pO2 88 124 H D 69 L D ABG HCO3 30 H 29 H 28 H ABG O2 Saturation 96 99 H 94 ABG Base Excess 2 -1 1 VBG pH VBG pCO2 VBG pO2 VBG Base Excess 06/01/24 06/02/24 06/04/24 07:51 18:15 16:07 ABG pH 7.49 H D 7.47 H ABG pCO2 37 D 44 ABG pO2 49 L* D 48 L* ABG HCO3 28 H 32 H ABG O2 Saturation 89 L 86 L ABG Base Excess 5 H 7 H VBG pH 7.45 VBG pCO2 31 L VBG pO2 64 H VBG Base Excess -2 06/06/24 06/07/24 10:24 05:12 ABG pH 7.30 L ABG pCO2 47 ABG pO2 56 L* ABG HCO3 23 ABG O2 Saturation 83 L ABG Base Excess -3 VBG pH 7.35 VBG pCO2 46 D VBG pO2 52 VBG Base Excess 0 Assessment & Plan Assessment and plan (1) Fecal impaction: Status: Acute Additional Assessment & Plan Additional Plan: The patient is a 73-year-old male with previous medical history of CVA, severe cognitive deficit, chronic PEG tube and tracheostomy placement, hyperlipidemia, diabetes mellitus, recurrent UTIs, depression, anxiety, upper extremity bilateral DVT who is a subacute facility resident. He was brought to the hospital due to constipation and abdominal distention for 5 days. He also developed pneumonia and acute on chronic respiratory failure. His labs showed hypokalemia and hypernatremia. His labs throughout admissionshowed uptrending WBC, hypernatremia, persistent hypokalemia and rapidly declining kidney functions. Hazard Mitigation Officer Dr. Reed was consulted due to ZACH and electrolyte abnormalities treaent and management. #ZACH - ATN #Hypokalemia #Hypernatremia, resolved Patient currently in ATN in the setting of septic shock. Patient unable to tolerate dialysis, hypotensive during treatment. Clotted dialyzer. -Recommended ICU team to discuss goals of care with family due to worsening patient's condition and inability to tolerate dialysis. ?Replete electrolytes as necessary ?Monitor daily CMP ?Avoid nephrotoxic agents ?Renally dose medications #Acute encephalopathy #CVA with residual deficits #New onset of A-fib #Shock #Acute on chronic hypoxic respiratory failure #ARDS #Severe bilateral pneumonia #Large bowel obstruction improving #Hypokalemia #Leukocytosis #Normocytic anemia #Bacterial pneumonia #Muscle atrophy - management as per primary Plan of care discussed with Dr. Garland and ICU team. Prognosis remains guarded. Quality - progress note Quality Measures Quality Measures: VTE prophylaxis Reason for Continued Stay Reason for Continued Stay: further monitoring
[2024-06-09] MEDS: MIDODRINE 5 MG TABLET GT ×2 (13:46→21:01)
[2024-06-09] MEDS: BUMETANIDE INJ 0.25 MG/ML VIAL 4 ML 3 MG IVP ×2 (13:46→20:59)
[2024-06-09] MEDS: Norepinephrine/D5W 8mg/250ml 8 MG/250 ML BAG 38.117 MG IV (14:31)
--- NOTE | 2024-06-09 15:14 | PD.IMPROG ---
Documentation for date of: 06/09/24 Subjective Subjective Interval history: Patient was seen at bedside this morning. Clinically unchanged. Patient continues to be in A-fib overnight Continue amiodarone for now. Keep potassium greater than 4 and magnesium greater than 2.0 at all times. Unable to do dialysis as per nephrology and primary critical care team as well as nephrology team did discuss goals of care with the family but the patient is still continues to be a limited code with resuscitation except for chest compression. Patient's platelets are also at 17,000. no heprain drip for now or any canticaogulation Overall patient has multiorgan dysfunction and deteriorating clinical condition over the last couple of days. At the request of the critical care team I did also speak to the son Mr. Muniz for almost 20 to 30 minutes to update the patient about the workup done till now, the treatment as well as the prognosis for the patient in detail. Discussed regarding the goals of care including comfort care in detail and answered all questions to their satisfaction. Son informed me that they will come back with their entire family tomorrow and will let us know their decision. Patient is on pressors and sedation Exam Vital Signs Temp Pulse Resp BP Pulse Ox O2 Del Method O2 Flow Rate 98.6 F 89 28 H 104/57 L 93 L Mechanical Ventilation 90 06/09/24 12:00 06/09/24 14:03 06/09/24 13:00 06/09/24 14:03 06/09/24 14:03 06/09/24 04:00 06/07/24 17:00 FiO2 65 06/09/24 14:03 Narrative Exam General: Nonverbal and unresponsive. Eyes: Pupils were difficult to assess due to cataracts Ears: No visible ear discharge Nose: No visible nasal discharge. Mouth/Throat: Dry mucous membranes, no redness, no lesions. Neck: Neck supple, no cervical lymphadenopathy. Lungs: Bronchial breath sounds bilateral Cardio: Normal S1/S2, irregular rhythm, no murmurs, no JVD Abdomen: Soft no palpable masses, peristalsis present, no guarding or rebound, PEG tube in place, 2 small 1 to 2 cm dry near the umbilicus wounds Extremities: Symmetrical, no significant deformities, 2+ peripheral edema upto thighd,peripheral pulses presents. Skin: No rashes, no lesions, warm to touch. Neuro: Cannot be assessed due to patient's medical condition Psych: Flat affect Objective Labs 06/10/24 05:48 06/10/24 05:48 Labs: Laboratory Results - last 24 hr 06/07/24 09:00 Blood Type O Positive Antibody Screen NEGATIVE Crossmatch See Detail Blood Bank Wristband ID Yes Blood Bank Comment PLATP Ready ABG Interpretation ABG results: 05/31/24 05/31/24 05/31/24 09:33 14:33 16:21 ABG pH 7.25 L 7.18 L* 7.30 L D ABG pCO2 68 H 78 H* D 57 H D ABG pO2 88 124 H D 69 L D ABG HCO3 30 H 29 H 28 H ABG O2 Saturation 96 99 H 94 ABG Base Excess 2 -1 1 VBG pH VBG pCO2 VBG pO2 VBG Base Excess 06/01/24 06/02/24 06/04/24 07:51 18:15 16:07 ABG pH 7.49 H D 7.47 H ABG pCO2 37 D 44 ABG pO2 49 L* D 48 L* ABG HCO3 28 H 32 H ABG O2 Saturation 89 L 86 L ABG Base Excess 5 H 7 H VBG pH 7.45 VBG pCO2 31 L VBG pO2 64 H VBG Base Excess -2 06/06/24 06/07/24 10:24 05:12 ABG pH 7.30 L ABG pCO2 47 ABG pO2 56 L* ABG HCO3 23 ABG O2 Saturation 83 L ABG Base Excess -3 VBG pH 7.35 VBG pCO2 46 D VBG pO2 52 VBG Base Excess 0 Assessment & Plan A&P Narrative 73-year-old male with past medical history of 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 1. A-fib with RVR, new onset 2. Hypokalemia ?Patient developed A-fib with RVR on 06/02/2024 ?Initial EKG showed on admission sinus tachycardia. ?Repeat EKG on 05/31/2024 that showed sinus rhythm ?EKG on 06/02/2024 showed A-fib with RVR and at this time patient's potassium was 2.9. ?Patient is currently DNR/DNI as per family's wishes ? Patient' family did not want any cardioversion at this time. Plan: ?Continue amiodarone drip for now and add amiodarone 200 p.o BID ?Recommend start patient on Eliquis 5 mg twice daily ? Recommend to keep potassium magnesium above 4 and 2 respectively to avoid any further arrhythmias ?Recommend primary care team to have goals of care discussion 06/09/2024 Patient is on mechanical ventilation at the present point of time. Family again changed his status to limited code and wanted to Patient continues to be in A-fib overnight Continue amiodarone for now. Keep potassium greater than 4 and magnesium greater than 2.0 at all times. Unable to do dialysis as per nephrology and primary critical care team as well as nephrology team did discuss goals of care with the family but the patient is still continues to be a limited code with resuscitation except for chest compression. Patient's platelets are also at 17,000. no heprin drip for now Overall patient has multiorgan dysfunction and deteriorating clinical condition over the last couple of days. At the request of the critical care team I did also speak to the son Mr. Muniz for almost 20 to 30 minutes to update the patient about the workup done till now, the treatment as well as the prognosis for the patient in detail. Discussed regarding the goals of care including comfort care in detail and answered all questions to their satisfaction. Son informed me that they will come back with their entire family tomorrow and will let us know their decision. Patient is on pressors and sedation 3. Acute on chronic hypoxic respiratory failure 4. Bilateral community-acquired pneumonia versus hospital-acquired pneumonia ? Continue management as per primary care team 5. Large bowel obstruction ?Continue management as per primary care team 6. CVA with residual deficits 7. Chronic PEG tube and tracheostomy ?Continue current management per primary care team 8. DM2 ? Continue current management as per primary care team 9. Bilateral upper extremity DVTs ? Continue current management as per primary care team 10. Anxiety 11. Depression ? Continue current management as per primary care team 12. Recurrent UTIs ? Continue current management as per primary care team There is a high probability of sudden, clinically significant or life threatening deterioration in the patient condition which required the highest level of physician preparedness to intervene urgently. I have personally spent total of 65 minutes of critical care time yesterday, exclusive of time spent on any procedures, in evaluation and management of this critically ill patient. Management of rest of the medical conditions as per primary team and other consultants. Thank you for the consult and allowing me to participate in the care of the patient. Cardiology will continue to follow. Kit Ho M.D. Interventional Cardiology Time Spent With Patient Time: Total time spent is greater than 50% in coordination of care (as documented) at patient's floor/unit and/or counseling patient:
--- NOTE | 2024-06-09 15:44 | PC.SS ---
Update: Patient not tolerating dialysis. Blood pressure dropping during dialysis. Patient on pressor support. Patient is Trach/PEG.
--- NOTE | 2024-06-09 15:58 | PD.RESPRO ---
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 Patient recently came to the ED on 05/24/2024 with similar complaints and received enema following which patient had a bowel movement and transferred back to the facility. Later patient was still found to have constipation for which Dr. Durant was consulted and patient received different bowel regimens and GoLytely with no much effect on constipation. As the patient is having progressive severe abdominal distention with constipation despite bowel regimens and GoLytely he was brought to the hospital today. No history of fever, vomiting. Dr. Durant was consulted and he tried to manually disimpact the stools but unsuccessful. Later Dr Cramer was consulted. 06/06/2024: Patient seen and examined at bedside. Patient received dialysis today. Developed worsening afib with tachycardia on dialysis, patient became agitated and asynchronous with vent. Propofol and fentanyl were initiated to maintain vent synchronicity, amiodrone 150mg bolus x1 given. Patient was able to complete dialysis with 800ml fluid removal. Tidal volume decreased from 450 to 380 for lung protective strategy in setting of ARDS. Plan to initiate tube feeds today. Patient has worsening thrombocytopenia, no evidence of hemorrhaging. 06/07/2024: Patient seen and examined at bedside. Dialysis attempted, however patient's blood was too thick to be properly dialyzed. In addition, patient developed tachycardia and hypotension. Per nephrology, patient is not a candidate for further dialysis sessions. Patient remains sedated and ventilated. Hemoglobin and platelets dropped, 1 unit PRBC and 1 unit platelets ordered. Patient developed sinus tachycardia during PRBC transfusion, rate slowed from 125 ml/hr to 75 ml/hr with improvement in tachycardia. Bumex 3mg IV x1 given without any urinary output. Contact precautions initiated due to Acinetobacter baumannii/haemol infection. Family updated regarding patient's condition and poor prognosis. 06/08/2024: Patient seen and examined at bedside. Spoke with [employer] teacher who reiterated patient is not to a candidate for dialysis. Sedation tapered off. Patient had episode of hypotension and respiratory distress with hypoxia, managed emergent bronchoscopy with lavage of bilateral lungs and with vent setting alterations: Tidal volume 400, rate 28, PEEP 12, FiO2 100%. Will continue to titrate FiO2 down as tolerated, maintaining SpO2 88-92% we will continue to titrate pressors as tolerated. Chest x-ray showed increased fluid in lungs. Patient continues to produce no urine. Worsening cyanosis of distal extremities. Platelet count 17, platelets ordered. 06/09/2024: The patient was examined at the bedside this morning. He continues to be in respiratory distress, with RR 30-35. Blood draws for labs were attempted, but as the blood has been thick in consistency, multiple attempts were failed. [employer] Machine Operator reported that the patient is not a candidate for hemodialysis as the blood is too thick to be out of the hemodialysis catheter and he cannot be given heparin as platelet count was 17 yesterday. Goals of care discussion was done with the patient's and son, who reported that they will touch base with all the family members and decide regarding proceeding further. We will attempt again to withdrawal blood samples for labs through hemodialysis catheter, and plan his treatment accordingly. After blood draw, we will remove his hemodialysis catheter. Exam Vital Signs Temp Pulse Resp BP Pulse Ox O2 Del Method O2 Flow Rate 98.6 F 89 28 H 104/57 L 93 L Mechanical Ventilation 90 06/09/24 12:00 06/09/24 14:03 06/09/24 13:00 06/09/24 14:03 06/09/24 14:03 06/09/24 04:00 06/07/24 17:00 FiO2 65 06/09/24 14:03 Narrative Exam PE: Gen: Alert, poorly responsive. Tracheostomy. HEENT: NCAT, anicteric conjunctivae. Dry mucous membranes. Vertical nystagmus. CVS: No M/R/G. Afib with tachycardia. Resp: Coarse lung sounds. Rhonchi and wheezing all lung ansari. Abd: Abdomen distended, soft. PEG tube. MSK: Good ROM in BUE & BLE. Bilateral lower and upper extremity edema. Edematous scrotum. Right femoral tri-flow catheter. Left and right foot cyanosis, progressing. Neuro: CN II-XII grossly intact. Baseline nonverbal. Sometimes tracks sounds. Objective Labs 06/18/24 06:57 06/18/24 06:57 Labs: Laboratory Results - last 24 hr 06/07/24 09:00 Blood Type O Positive Antibody Screen NEGATIVE Crossmatch See Detail Blood Bank Wristband ID Yes Blood Bank Comment PLATP Ready ABG Interpretation ABG results: 05/31/24 05/31/24 05/31/24 09:33 14:33 16:21 ABG pH 7.25 L 7.18 L* 7.30 L D ABG pCO2 68 H 78 H* D 57 H D ABG pO2 88 124 H D 69 L D ABG HCO3 30 H 29 H 28 H ABG O2 Saturation 96 99 H 94 ABG Base Excess 2 -1 1 VBG pH VBG pCO2 VBG pO2 VBG Base Excess 06/01/24 06/02/24 06/04/24 07:51 18:15 16:07 ABG pH 7.49 H D 7.47 H ABG pCO2 37 D 44 ABG pO2 49 L* D 48 L* ABG HCO3 28 H 32 H ABG O2 Saturation 89 L 86 L ABG Base Excess 5 H 7 H VBG pH 7.45 VBG pCO2 31 L VBG pO2 64 H VBG Base Excess -2 06/06/24 06/07/24 10:24 05:12 ABG pH 7.30 L ABG pCO2 47 ABG pO2 56 L* ABG HCO3 23 ABG O2 Saturation 83 L ABG Base Excess -3 VBG pH 7.35 VBG pCO2 46 D VBG pO2 52 VBG Base Excess 0 Quality Measures Quality Measures VTE prophylaxis Advance care planning discussed with:: spouse and child Assessment & Plan Assessment Current Active Medications: Generic Name Dose Route Start Last Admin Trade Name Freq PRN Reason Stop Dose Admin Acetaminophen 650 mg 06/04/24 15:09 06/04/24 16:40 Acetaminophen Lindsey 325 Mg/10 Ml Udc GT 07/04/24 15:08 650 mg Q6HR PRN Administration Pain Or Fever > 100.4 Albuterol/Ipratropium 3 ml 06/04/24 15:33 Albuterol/Ipratropium (Duoneb) Rt Lindsey 3 Ml Nebu INH 07/04/24 15:32 Q2HR PRN SHORTNESS OF BREATH OR WHEEZE Amiodarone HCl 200 mg 06/05/24 21:00 06/09/24 08:55 Amiodarone Hcl 200 Mg Tablet GT 07/05/24 20:59 200 mg BID XOCHITL Administration Artificial Tears 0 drop 06/08/24 19:44 06/08/24 20:14 Artificial Tears 225 Drop/15 Ml Btl BOTH EYES 07/08/24 19:43 1 drop PRN PRN Administration TO KEEP EYES MOIST Bumetanide 3 mg 06/09/24 13:15 06/09/24 13:46 Bumetanide Inj 0.25 Mg/Ml Vial 4 Ml IVP 07/09/24 13:14 3 mg BID XOCHITL Administration Calcium Acetate 667 mg 06/08/24 08:45 06/09/24 12:48 Calcium Acetate 667 Mg Tablet GT 07/04/24 18:44 667 mg TIDWM XOCHITL Administration Dextrose 25 ml 06/04/24 15:32 Dextrose 50%-Water Inj 50 Ml Syringe IV 07/04/24 15:31 Q15MIN PRN BG 50-70 responsive npo pt Dextrose 50 ml 06/04/24 15:32 Dextrose 50%-Water Inj 50 Ml Syringe IV 07/04/24 15:31 Q15MIN PRN BG <50 OR BG <70 & pt unresponsive Heparin Sodium (Porcine) 5,000 unit 06/04/24 22:00 06/06/24 06:18 Heparin Sod Inj 5000 Unit/Ml Vial SC 06/18/24 21:59 5,000 unit Q8HR XOCHITL Administration Heparin Sodium (Porcine) 2,200 unit 06/05/24 17:03 06/07/24 08:55 Heparin Sod Inj 1000 Unit/Ml Vial 10 Ml INDWELLCAT 06/19/24 17:02 2,200 unit PRN PRN Administration DIALYSIS Norepinephrine/Dextrose 8 mg in 250 mls @ 6.572 mls/hr 06/03/24 11:37 06/09/24 14:00 Levophed In D5w 8mg/250ml IV 07/03/24 11:36 Infused .Q24H PRN Titration PER PROTOCOL Protocol 0.05 MCG/KG/MIN Levofloxacin/Dextrose 500 mg in 100 mls @ 100 mls/hr 06/06/24 18:30 06/08/24 20:00 Levaquin Ivpb IV 06/13/24 18:29 Infused Q48H XOCHITL Infusion Albumin Human 25 gm in 100 mls @ 100 mls/min 06/05/24 17:05 06/07/24 08:32 Albuminar-25 Ivpb IV Infused PRN PRN Infusion DIALYSIS Fentanyl Citrate 2,500 mcg in 250 mls @ 2.5 mls/hr 06/06/24 08:54 06/08/24 16:13 Sublimaze Inj 2,500 Mcg/250 Ml Bag IV 06/11/24 08:53 0 mcg/hr .Q24H PRN 0 mls/hr PER PROTOCOL Titration Protocol 25 MCG/HR Propofol 1,000 mg in 100 mls @ 2.025 mls/hr 06/06/24 08:55 06/08/24 13:28 Diprivan Ivpb IV 07/06/24 08:54 0 mcg/kg/min .Q24H PRN 0 mls/hr PER PROTOCOL Titration Protocol 5 MCG/KG/MIN Clindamycin/Sodium Chloride 600 mg in 50 mls @ 100 mls/hr 06/07/24 18:00 06/09/24 12:44 Cleocin/Ns Ivpb IV 06/14/24 17:59 100 mls/hr Q6HR XOCHITL Administration Insulin Human Regular 0 unit 06/04/24 18:00 06/09/24 12:39 Insulin Hum Regular 1 Unit/0.01 Ml (Per Unit) SC 07/04/24 17:59 Not Given Q6HR XOCHITL Protocol Lactulose 20 gm 06/08/24 09:00 06/09/24 08:54 Lactulose Syrup 20 Gm/30 Ml Udc GT 07/04/24 21:59 Not Given QDAY XOCHITL Protocol Midodrine 5 mg 06/09/24 14:00 06/09/24 13:46 Midodrine 5 Mg Tablet GT 07/09/24 13:59 5 mg TID XOCHITL Administration Pantoprazole Sodium 40 mg 06/04/24 15:30 06/09/24 08:54 Pantoprazole Inj 40 Mg Vial IVP 07/04/24 15:29 40 mg QDAY XOCHITL Administration Pharmacy Consult 1 each 06/04/24 18:24 Pharmacy Renal Dose Adjustment 1 Ea XX 07/04/24 18:23 PRN PRN CONSULT Plan 73-year-old male with 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 06/09/2024: The patient was examined at the bedside this morning. He continues to be in respiratory distress, with RR 30-35. Blood draws for labs were attempted, but as the blood has been thick in consistency, multiple attempts were failed. [employer] Machine Operator reported that the patient is not a candidate for hemodialysis as the blood is too thick to be out of the hemodialysis catheter and he cannot be given heparin as platelet count was 17 yesterday. Goals of care discussion was done with the patient's and son, who reported that they will touch base with all the family members and decide regarding proceeding further. We will attempt again to withdrawal blood samples for labs through hemodialysis catheter, and plan his treatment accordingly. After blood draw, we will remove his hemodialysis catheter. Neuro: #Chronic encephalopathy #CVA with residual deficits Metabolic encephalopathy due to severe constipation, and hypoxia Patient is nonverbal at baseline, per family at bedside he is normally somewhat interactive. Currently patient is responsive only to pain, opens eyes, does not track sounds. Patient became close to baseline, responds to loud sounds, does not follow commands or have purposeful movement. Patient became agitated during dialysis, sedated to maintain vent synchronicity. Patient no longer candidate for dialysis as the blood is too thick to pull out of veins, weaning off sedation. -Monitor Cardio: #Septic shock 2/2 Acenetobacter baummani and enterobacter aerogenes pneumonia Patient started on levofloxacin based on previous cultures, dosed for acute kidney injury. -Close monitoring -Levophed, titrate as needed -Levofloxacin 750 mg IV x1, followed by Levofloxacin 500 mg IV q48h (Started 06/04) -Clindamycin 600mg IV q6h (started 06/07) -Follow-up blood cultures, has been negative for 48H #Afib Patient developed afib with RVR prompting rapid response. Amio bolus given, drip completed. Worsening tachycardia during dialysis, resolved with 150mg bolus amiodorone x1. -amiodarone 200mg GT BID -telemonitoring Pulm: #Acute hypoxic respiratory failure #Aspiration pneumonia #ARDS Patient developed worsening hypoxia despite increasing FiO2 on the floors following massive aspiration. Chest x-ray shows significant bilateral pneumonia, more severe on the left side. Patient has significantly distended abdomen, present on lungs. ABG showed pH 7.18, pCO2 70, pO2 124. Vent settings changed to increase tidal volume and respiratory rate, repeat ABG showed pH 7.3, pCO2 57, pO2 69. Patient improved enough for downgrade to telemetry, was later upgraded back to ICU for worsening hypoxia, hypotension, afib with RVR. Patient continues to have high FiO2 requirements to maintain saturation. Tidal volume decreased from 450 to 380. After sedation discontinued, patient became hypoxic/hypertensive, initially managed with vent settings but required emergent bronchoscopy with lavage of bilateral lungs. Chest x-ray showed increasing fluid in lungs. -Maintain vent settings, wean down FiO2 as tolerated -Lung protective vent strategies -Duoneb as needed -Antibiotics as above GI: #Transaminitis DDx Medication effect vs. severe acute illness Patient has had mild transaminitis during hospital stay. Slightly uptrending, patient on levaquin and amiodarone. Timing does not match rise in LFTs, could be contributing factor. Downtrending until yesterday, unable to draw labs -monitor #PEG tube Patient has chronic PEG tube. Feeds have been held due to large bowel obstruction, now resolved. -Tube feeds, 20ml/hr with 25ml/hr water flushes Renal: #ATN Patient developed ATN due to ischemia in setting of hypotension. Patient had left femoral tri-flow cath placed for dialysis. Patient had difficulty with dialysis. On third day, blood was too thick to properly dialyze. Patient deemed to unstable for furhter dialysis by [employer] teacher. Family updated on patient status. Patient anuric. Bumex 3mg IV given x1 without urine output. Patient remains severely fluid overloaded. -Started on Bumex 3mg BID -Not suitable candidate for dialysis #Hypokalemia Patient has had severely low potassium, down to 2.2. Patient was given multiple doses of potassium chloride, potassium improved to 3.5. After family requested treatment, repeat labs were drawn, potassium 2.2. 60mEq GT and 10 mEq IV ordered. Patient receiving dialysis with potassium repletion. -unable to draw labs -Monitor -Replete as needed Endo: #DM Patient history -ISS Heme: #Thrombocytopenia due to DIC Patient has had mild thrombocytopenia, steadily worsening for several days. Recently downtrended to 47. No signs of thrombosis or hemorrhaging. DIC panel: PT 14.5, PTT 49, Fibrinogen 515, D-Dimer >3820. LDH elevated. Platelets dropped to 17 yesterday -unable to draw labs -Monitor -Treat underlying conditions -Replace platelets if <20k #Leukocytosis Likely due to infection and reactive to patient's worsening overall status. -unable to draw labs -Monitor #Normocytic anemia Patient has chronic normocytic anemia, slightly worse than normal currently. No signs of bleeding. Dropped to 6.5 after attempted dialysis, 1 unit PRBC given -unable to draw labs -Monitor ID: #Sepsis Procal [id number]. Fevers. Patient received Vancomycin and Zosyn previously. Blood cultures grew MRSA, sputum cultures grew Acinetobacter baumannii/haemol. Will adjust antibiotic dosage for reduced creatinine clearance -Levofloxacin 750 mg IV x1, followed by Levofloxacin 500 mg IV q48h (Started 06/04) -Clindamycin 600mg IV q6h (started 06/07) -Tylenol as needed for fevers -contact precautions Skin/MSK: #Deep tissue injury Patient has deep tissue injury to right upper back. -bandaged #Stage two pressure ulcer Patient has stage 2 pressure ulcer to right buttock. -bandaged ICU Health maintenance: Mechanical ventilation: Yes Sedation:Yes Diet: Tube feeds via PEG DVT ppx: None GI ppx: Protonix Godinez: No IV lines: Peripheral IVs Central line: Femoral tri-flow- DC ordered on 06/10 Arterial line: No Code status: Limited Code: No compressions The patient's management plan was discussed with my attending physician MD Alex Franz MD, PGY2 Attending Provider Attestation/Addendum Patient seen and examined with above resident, Alex Garcia MD. I agree with the findings, assessment, and plan of care as documented except for any differences below. Patient with ongoing issues with coagulation including inability to perform hemodialysis due to frequent clotting and blood loss as well as thrombocytopenia with intermittent need for transfusions of both PRBCs and platelets. Suspect precipitant is related to DIC from septic shock. Patient remains on appropriate antibiotic regimen with Levaquin for known growth of Acinetobacter for which she was placed on isolation appropriately. Continuing all aggressive cares despite the patient's poor overall prognosis with significant debility from prior CVA and chronic trach dependent with superimposed aspiration pneumonia requiring mechanical ventilation now. Patient remains on appropriate tube feeds. Will plan to remove dialysis catheter now that HD is no longer planned. Will for fluid overload plan on trial of twice daily Bumex. Patient's family was notified of his intolerance to HD and his multiple comorbidities given his chance of recovery. Total critical care time: I personally spent 35 minutes for review of physiologic parameters, directing plan of care throughout the day, and coordination of care with other subspecialists. This is exclusive of time spent teaching housestaff or performing any separate billable procedures. Patient continues to require critical care services for Acinetobacter, any pneumonia with acute on chronic hypoxic respiratory failure and septic shock. Patient remains at high risk for further morbidity and mortality warranting ongoing treatment and management only available in the intensive care unit.
[2024-06-09 17:20] LABS: Basophils # (Auto) 0.1 Thou/mm3 (0.0-0.2); Basophils % (Auto) 0 % (0-2.5); Eosinophils # (Auto) 0.1 Thou/mm3 (0.0-0.5); Eosinophils % (Auto) 1 % (0-10); Hematocrit 22.9 % (41.0-53.0); Immature Granulocytes % (Auto) 3 % (0-0); Immature Granulocytes Auto 0.67 Thou/mm3 (0.00-0.00); Lymphocytes # (Auto) 0.7 Thou/mm3 (1.0-4.8); Lymphocytes % (Auto) 3 % (10-50); Mean Corpuscular HGB Conc 34.9 g/dl (31.0-37.0); Mean Corpuscular Hemoglobin 28.8 pg (25.0-35.0); Mean Corpuscular Volume 82 fL (80-100); Monocytes # (Auto) 1.4 Thou/mm3 (0.0-0.8); Monocytes % (Auto) 6 % (0-12); Neutrophils # (Auto) 19.2 Thou/mm3 (1.8-7.7); Neutrophils % (Auto) 87 % (37-80); Nucleated Red Blood Cell # 0.88 Thou/mm3 (0.00-0.00); Nucleated Red Blood Cell % 4 /100 WBC (0); RDW Standard Deviation 51.3 fL (35.1-43.9); Red Blood Count 2.78 Miln/mm3 (4.50-5.90); White Blood Count 22.1 Thou/mm3 (3.8-10.6)
[2024-06-09 17:30] LABS: Platelet Count 8 Thou/mm3 (140-440)
[2024-06-09 17:31] LABS: Slide Review Platelets confirmed
[2024-06-09 17:39] LABS: Alanine Aminotransferase 68 U/L (10-49); Albumin, Serum 2.4 gm/dL (3.4-4.8); Albumin/Globulin Ratio 1.2 (1.2-2.2); Alkaline Phosphatase 233 U/L (46-116); Anion Gap 12 (7-16); Aspartate Amino Transferase 68 U/L (0-34); BUN/Creatinine Ratio 19 Ratio (12-20); Bilirubin,Total 1.3 mg/dL (0.3-1.2); Blood Urea Nitrogen 76 mg/dL (9-23); Calcium 7.4 mg/dL (8.3-10.6); Calcium (Corrected) 8.7 mg/dL (8.5-10.1); Carbon Dioxide 21.5 mMol/L (20.0-31.0); Chloride 98 mMol/L (98-107); Creatinine (Component) 3.9 mg/dL (0.6-1.3); Estimated Creatinine Clearance 14.1 mL/min (>60); Glucose 129 mg/dL (74-106); Osmolality,Calculated 287 (275-295); Phosphorous 5.3 mg/dL (2.4-5.1); Potassium 3.6 mMol/L (3.4-5.1); Sodium 131 mMol/L (136-145); Total Protein 4.4 gm/dL (5.7-8.2); eGFR 16 See Note
[2024-06-09] MEDS: Norepinephrine/D5W 8mg/250ml 8 MG/250 ML BAG 27.602 MG IV (21:47)
[2024-06-10] VITALS (105 sets, daily range): BP systolic 83–140; BP diastolic 39–96; PULSE 70–89; RESP 23–36; TEMP 36–37.1; O2SAT 79–100; BMI 28.9
[2024-06-10] MEDS: CLINDAMYCIN/NS 600 MG IVPB 600 MG/50 ML BAG 100 MG IV ×4 (00:07→17:51)
[2024-06-10] MEDS: MIDODRINE 5 MG TABLET GT ×3 (05:43→21:50)
[2024-06-10] MEDS: INSULIN HUM REGULAR 1 UNIT/0.01 ML (PER UNIT) SC (05:54)
[2024-06-10 06:18] LABS: Basophils # (Auto) 0.1 Thou/mm3 (0.0-0.2); Basophils % (Auto) 0 % (0-2.5); Eosinophils % (Auto) 0 % (0-10); Hematocrit 24.6 % (41.0-53.0); Immature Granulocytes % (Auto) 3 % (0-0); Immature Granulocytes Auto 0.61 Thou/mm3 (0.00-0.00); Lymphocytes # (Auto) 0.6 Thou/mm3 (1.0-4.8); Lymphocytes % (Auto) 3 % (10-50); Mean Corpuscular Hemoglobin 28.4 pg (25.0-35.0); Mean Corpuscular Volume 81 fL (80-100); Monocytes # (Auto) 1.3 Thou/mm3 (0.0-0.8); Monocytes % (Auto) 6 % (0-12); Neutrophils # (Auto) 17.1 Thou/mm3 (1.8-7.7); Neutrophils % (Auto) 87 % (37-80); Nucleated Red Blood Cell # 0.68 Thou/mm3 (0.00-0.00); Nucleated Red Blood Cell % 4 /100 WBC (0); Red Blood Count 3.03 Miln/mm3 (4.50-5.90); White Blood Count 19.7 Thou/mm3 (3.8-10.6)
[2024-06-10 06:34] LABS: Platelet Count 28 Thou/mm3 (140-440)
[2024-06-10 06:35] LABS: Hemoglobin 8.6 g/dL (13.5-16.0)
[2024-06-10 06:45] LABS: Alanine Aminotransferase 57 U/L (10-49); Albumin, Serum 2.7 gm/dL (3.4-4.8); Albumin/Globulin Ratio 1.3 (1.2-2.2); Alkaline Phosphatase 222 U/L (46-116); Anion Gap 15 (7-16); Aspartate Amino Transferase 32 U/L (0-34); BUN/Creatinine Ratio 20 Ratio (12-20); Bilirubin,Total 1.3 mg/dL (0.3-1.2); Blood Urea Nitrogen 81 mg/dL (9-23); Calcium 7.8 mg/dL (8.3-10.6); Calcium (Corrected) 8.8 mg/dL (8.5-10.1); Carbon Dioxide 20.4 mMol/L (20.0-31.0); Chloride 97 mMol/L (98-107); Estimated Creatinine Clearance 13.8 mL/min (>60); Globulin 2.1 gm/dL (2.3-3.5); Glucose 148 mg/dL (74-106); Osmolality,Calculated 291 (275-295); Phosphorous 5.5 mg/dL (2.4-5.1); Potassium 3.3 mMol/L (3.4-5.1); Sodium 132 mMol/L (136-145); Total Protein 4.8 gm/dL (5.7-8.2); eGFR 15 See Note
[2024-06-10 06:47] LABS: Erythropoietin (EPO)* 2120.3 mIU/mL (2.6-18.5)
--- NOTE | 2024-06-10 06:53 | PC.NURSE ---
Recvd order for vas cath removal. No IR services available today, Destini [facility] made aware
--- NOTE | 2024-06-10 08:01 | PD.NEPHPROG ---
Documentation for date of: 06/10/24 Subjective Subjective Interval history: Interval history: The patient is a 73-year-old male with previous medical history of CVA, severe cognitive deficit, chronic PEG tube and tracheostomy placement, hyperlipidemia, diabetes mellitus, recurrent UTIs, depression, anxiety, upper extremity bilateral DVT who is a subacute facility resident. He was brought to the hospital due to constipation and abdominal distention for 5 days. Earlier he had similar problems and received enema, had a bowel movement and was transferred back to the facility. He had a manual disimpaction and copious amount of soft stools was evacuated by Dr. Cramer. Rectal tube was placed. Later in admission patient had developed fever, became tachycardic, tachypneic. Imaging showed bilateral pneumonia with continued to worsen, he was started on fluids. He was not able to maintain MAP more than 65, was started on Levophed. Also, EKG showed A-fib with RVR and was started on amiodarine drip. He continued to have multiple bowel movements. His labs showed hypokalemia and hypernatremia. His labs throughout admissionshowed uptrending WBC, hypernatremia, persistent hypokalemia and rapidly declining kidney functions. ICU team had a conversation with patient's family over regarding goals of care, patient's family decided to proceed with full treatment but not to proceed with chest compressions in case of cardiac arrest, patient is limited code. Manager Environmental Affairs Dr. Reed was consulted due to ZACH and electrolyte abnormalities treaent and management. 06/05/2024: Patient was seen and examined by the bedside in the ICU. Saturating in the low 90s on FiO2 70%. Continues to require Levophed support. Labs showed sodium 151, potassium 2.9, chloride 113, bicarb 21.3, BUN 57, creatinine 3.2, EGFR 20, glucose 122, corrected calcium 8.4, AST 209, ALT 78, albumin 2.4. Due to hemodynamic instability and patient continuing to require Levophed, will hold off dialysis for today and will try to correct the electrolyte abnormalities and start free water flushes at 100 mL/h. Repeat renal panel showed sodium 150, potassium 3.5, chloride 113, BUN 58, creatinine 3.4, EGFR 18. 06/06/2024: Patient seen and examined at the bedside in the ICU. Today patient opens eyes to the verbal stimulation, but does not follow the objects or follow commands, continues to have rotatory nystagmus and left-sided gaze fixation. Yesterday patient's family decided to proceed with dialysis, dialysis treatment was ended early due to catheter not functioning, after attempting a bowel flush both ports remains sluggish. Dialysis session was stopped. Blood in the arterial line returned but blood and the venous line clotted was unable to return. CBC stat showed hemoglobin 7.3, hemoglobin earlier this day was 8.0. Today patient had a repeat dialysis session, 1 L of fluid was removed. A.m. labs showed hemoglobin 7.4, hematocrit 21.2, platelets 45, INR 1.4, fibrinogen 515, D-dimer more than 3820. Sodium 143, potassium 3.0, BUN 39, creatinine 2.1, lactic acid 3.4. 06/07/2024: Patient seen and examined at bedside in ICU, unable to tolerate dialysis, patient was given IV albumin, blood pressure does not tolerate dialysis treatment. Patient was able to complete dialysis yesterday, had about 804 mL removed, was given 1 unit of IV albumin. Patient's labs reviewed, show WBC 14.2, RBC 2.27, hemoglobin 6.6, hematocrit 18.7, platelet count 20,000, sodium 141, potassium 3.5, bicarb 19.7, BUN 54, creatinine 3.2, GFR 20, total bilirubin 1.7 AST 167 ALT 99, alk phos 188. Patient has poor prognosis, is unable to tolerate dialysis, recommended ICU team to discuss goals of care with family. 06/08/2024: Patient seen and examined at bedside in ICU. Yesterday was not able to unable to tolerate dialysis. Labs show WBC 17.9, hemoglobin 8.4, platelets 17, sodium 138, potassium 2.2, BUN 66, creatinine 3.4, EGFR 18. Patient is not a candidate for a dialysis due hemodynamic instability and developing DIC. Will continue to monitor, patient's prognosis remains poor. 06/09/2024 patient currently seen in ICU. Remains on the ventilator. Labs reviewed. unable to do dialysis due to hemodynamic instability, platelet count of 17,000 and extremely thick blood which is clotting of the dialyzer's. Cannot do heparin drip due to thrombocytopenia. Suspect patient in DIC. Prognosis remains poor. Plan of care discussed with Dr. Garland and ICU team. 06/10/2024 patient currently seen in ICU. Remains on ventilator, nonresponsive. Urine output very minimal. Unfortunately cannot do dialysis due to hemodynamic instability and clotting of dialyzer's. Still remains in DIC/thrombocytopenia. Labs, medications have been reviewed. Spoke to Dr. Garland. Can remove dialysis catheter as a source of infection. Goals of care to be discussed with family. Prognosis remains poor. Review of Systems Review of Systems ROS Unobtainable: unobtainable due to mental status and unobtainable due to medical condition Exam Vital Signs Temp Pulse Resp BP Pulse Ox O2 Del Method O2 Flow Rate 35.9 C L 71 29 H 110/52 L 95 Mechanical Ventilation 90 06/09/24 22:29 06/10/24 07:45 06/10/24 07:45 06/10/24 07:45 06/10/24 07:15 06/09/24 04:00 06/07/24 17:00 FiO2 75 06/10/24 06:21 Narrative Exam Gen: Chronically ill-appearing elderly male. On ventilator HEENT: Left sided gaze fixation with rotatory nystagmus. CVS: normal S1 and S2. RRR. No M/R/G. Resp: CTA B/L. No rhonchi, rales, crackles or wheezing. Abd: soft, non-tender, non-distended. BS decreased. G-tube site unremarkable. MSK: 2+ lower extremity edema. Scrotal anasarca. Bilateral feet with cyanosis. The left earlobe seems to have some cyanosis. Neuro: Unresponsive Objective Labs 06/10/24 05:48 06/10/24 05:48 Labs: Laboratory Results - last 24 hr 06/05/24 06/07/24 06/09/24 18:08 09:00 16:49 WBC 22.1 H RBC 2.78 L Hgb 8.0 L Hct 22.9 L MCV 82 MCH 28.8 MCHC 34.9 RDW Std Deviation 51.3 H Plt Count 8 L* D Neut % (Auto) 87 H Lymph % (Auto) 3 L [place] % (Auto) 6 Eos % (Auto) 1 Baso % (Auto) 0 Neut # (Auto) 19.2 H Lymph # (Auto) 0.7 L [place] # (Auto) 1.4 H Eos # (Auto) 0.1 Baso # (Auto) 0.1 Immature Gran # (Auto) 0.67 H Absolute Nucleated RBC 0.88 H Immature Gran % 3 H Nucleated RBC % 4 H Sodium 131 L Potassium 3.6 D Chloride 98 Carbon Dioxide 21.5 Anion Gap 12 BUN 76 H Creatinine 3.9 H D Estim Creat Clear Calc 14.1 L eGFR 16 L BUN/Creatinine Ratio 19 Glucose 129 H Calculated Osmolality 287 Calcium 7.4 L Corrected Calcium 8.7 Phosphorus 5.3 H Magnesium 2.0 Erythropoietin 2120.3 H Total Bilirubin 1.3 H AST 68 H ALT 68 H Alkaline Phosphatase 233 H D Total Protein 4.4 L Albumin 2.4 L Globulin 2.0 L Albumin/Globulin Ratio 1.2 Misc Test Result Platelets confirmed Blood Type O Positive Antibody Screen NEGATIVE Crossmatch See Detail Blood Bank Wristband ID Yes Blood Bank Comment PLATP Ready 06/10/24 05:48 WBC 19.7 H RBC 3.03 L Hgb 8.6 L Hct 24.6 L MCV 81 MCH 28.4 MCHC 35.0 RDW Std Deviation 50.0 H Plt Count 28 L* D Neut % (Auto) 87 H Lymph % (Auto) 3 L [place] % (Auto) 6 Eos % (Auto) 0 Baso % (Auto) 0 Neut # (Auto) 17.1 H Lymph # (Auto) 0.6 L [place] # (Auto) 1.3 H Eos # (Auto) 0.0 Baso # (Auto) 0.1 Immature Gran # (Auto) 0.61 H Absolute Nucleated RBC 0.68 H Immature Gran % 3 H Nucleated RBC % 4 H Sodium 132 L Potassium 3.3 L Chloride 97 L Carbon Dioxide 20.4 Anion Gap 15 BUN 81 H Creatinine 4.0 H Estim Creat Clear Calc 13.8 L eGFR 15 L BUN/Creatinine Ratio 20 Glucose 148 H Calculated Osmolality 291 Calcium 7.8 L Corrected Calcium 8.8 Phosphorus 5.5 H Magnesium 2.0 Erythropoietin Total Bilirubin 1.3 H AST 32 ALT 57 H Alkaline Phosphatase 222 H Total Protein 4.8 L Albumin 2.7 L Globulin 2.1 L Albumin/Globulin Ratio 1.3 Misc Test Result See comment Blood Type Antibody Screen Crossmatch Blood Bank Wristband ID Blood Bank Comment ABG Interpretation ABG results: 05/31/24 05/31/24 05/31/24 09:33 14:33 16:21 ABG pH 7.25 L 7.18 L* 7.30 L D ABG pCO2 68 H 78 H* D 57 H D ABG pO2 88 124 H D 69 L D ABG HCO3 30 H 29 H 28 H ABG O2 Saturation 96 99 H 94 ABG Base Excess 2 -1 1 VBG pH VBG pCO2 VBG pO2 VBG Base Excess 06/01/24 06/02/24 06/04/24 07:51 18:15 16:07 ABG pH 7.49 H D 7.47 H ABG pCO2 37 D 44 ABG pO2 49 L* D 48 L* ABG HCO3 28 H 32 H ABG O2 Saturation 89 L 86 L ABG Base Excess 5 H 7 H VBG pH 7.45 VBG pCO2 31 L VBG pO2 64 H VBG Base Excess -2 06/06/24 06/07/24 10:24 05:12 ABG pH 7.30 L ABG pCO2 47 ABG pO2 56 L* ABG HCO3 23 ABG O2 Saturation 83 L ABG Base Excess -3 VBG pH 7.35 VBG pCO2 46 D VBG pO2 52 VBG Base Excess 0 Assessment & Plan Assessment and plan (1) Fecal impaction: Status: Acute Additional Assessment & Plan Additional Plan: The patient is a 73-year-old male with previous medical history of CVA, severe cognitive deficit, chronic PEG tube and tracheostomy placement, hyperlipidemia, diabetes mellitus, recurrent UTIs, depression, anxiety, upper extremity bilateral DVT who is a subacute facility resident. He was brought to the hospital due to constipation and abdominal distention for 5 days. He also developed pneumonia and acute on chronic respiratory failure. His labs showed hypokalemia and hypernatremia. His labs throughout admissionshowed uptrending WBC, hypernatremia, persistent hypokalemia and rapidly declining kidney functions. Manager Environmental Affairs Dr. Reed was consulted due to ZACH and electrolyte abnormalities #ZACH - ATN #Hypokalemia #Hypernatremia, resolved Patient currently in ATN in the setting of septic shock. Patient unable to tolerate dialysis, hypotensive during treatment. Clotted dialyzer. -Recommended ICU team to discuss goals of care with family due to worsening patient's condition and inability to tolerate dialysis. Prognosis remains poor. Plan of care discussed with Dr. Garland ?Replete electrolytes as necessary ?Monitor daily CMP ?Avoid nephrotoxic agents ?Renally dose medications #Acute encephalopathy #CVA with residual deficits #New onset of A-fib #Shock #Acute on chronic hypoxic respiratory failure #ARDS #Severe bilateral pneumonia #Large bowel obstruction improving #Hypokalemia #Leukocytosis #Normocytic anemia #Bacterial pneumonia #Muscle atrophy - management as per primary Plan of care discussed with Dr. Garland and ICU team. Prognosis remains guarded.
[2024-06-10] MEDS: SEVELAMER CARBONATE 800 MG TABLET PO ×3 (08:33→21:50)
[2024-06-10] MEDS: CALCIUM ACETATE 667 MG TABLET GT ×3 (08:33→17:50)
[2024-06-10] MEDS: BUMETANIDE INJ 0.25 MG/ML VIAL 4 ML 3 MG IVP ×2 (08:33→21:50)
[2024-06-10] MEDS: AMIODARONE HCL 200 MG TABLET GT ×2 (08:33→21:50)
[2024-06-10] MEDS: PANTOPRAZOLE INJ 40 MG VIAL IVP (08:34)
[2024-06-10] MEDS: POTASSIUM CHLORIDE 10% 20 MEQ/15 ML UDC GT (08:52)
--- NOTE | 2024-06-10 09:10 | PD.IMPROG ---
Documentation for date of: 06/10/24 Subjective Subjective Interval history: Patient was seen at bedside this morning. Clinically unchanged. Patient continues to be in A-fib overnight but rate is well-controlled Continue amiodarone for now. Keep potassium greater than 4 and magnesium greater than 2.0 at all times. Unable to do dialysis as per nephrology and primary critical care team as well as nephrology team did discuss goals of care with the family but the patient is still continues to be a limited code with resuscitation except for chest compression. Platelets were as low as 8000 yesterday and now are at 28,000. no heprain drip for now or any anticaogulation Hemoglobin is stable for now around 8 for the last couple of days. Patient apparently is diuresing but he is incontinent and patient is on Bumex 3 mg IV twice daily and kidney function continues to worsen BUN is 81 and creatinine is 4.0. Unable to do dialysis as noted above. Overall patient has multiorgan dysfunction and deteriorating clinical condition over the last couple of days. At the request of the critical care team I did also speak to the son Mr. Muniz yesterday for almost 20 to 30 minutes to update the patient about the workup done till now, the treatment as well as the prognosis for the patient in detail. Discussed regarding the goals of care including comfort care in detail and answered all questions to their satisfaction. Family apparently came today with still want to continue the same limited code Patient is on pressors and sedation Exam Vital Signs Temp Pulse Resp BP Pulse Ox O2 Del Method O2 Flow Rate 97 F 71 24 H 105/65 95 Mechanical Ventilation 90 06/10/24 08:00 06/10/24 08:46 06/10/24 08:46 06/10/24 08:46 06/10/24 07:15 06/09/24 04:00 06/07/24 17:00 FiO2 75 06/10/24 08:00 Narrative Exam General: Nonverbal and unresponsive. Eyes: Pupils were difficult to assess due to cataracts Ears: No visible ear discharge Nose: No visible nasal discharge. Mouth/Throat: Dry mucous membranes, no redness, no lesions. Neck: Neck supple, no cervical lymphadenopathy. Lungs: Bronchial breath sounds bilateral Cardio: Normal S1/S2, irregular rhythm, no murmurs, no JVD Abdomen: Soft no palpable masses, peristalsis present, no guarding or rebound, PEG tube in place, 2 small 1 to 2 cm dry near the umbilicus wounds Extremities: Symmetrical, no significant deformities, 2+ peripheral edema upto thighd,peripheral pulses presents. Skin: No rashes, no lesions, warm to touch. Neuro: Cannot be assessed due to patient's medical condition Psych: Flat affect Objective Labs 06/10/24 05:48 06/10/24 05:48 Labs: Laboratory Results - last 24 hr 06/05/24 06/07/24 06/09/24 18:08 09:00 16:49 WBC 22.1 H RBC 2.78 L Hgb 8.0 L Hct 22.9 L MCV 82 MCH 28.8 MCHC 34.9 RDW Std Deviation 51.3 H Plt Count 8 L* D Neut % (Auto) 87 H Lymph % (Auto) 3 L [place] % (Auto) 6 Eos % (Auto) 1 Baso % (Auto) 0 Neut # (Auto) 19.2 H Lymph # (Auto) 0.7 L [place] # (Auto) 1.4 H Eos # (Auto) 0.1 Baso # (Auto) 0.1 Immature Gran # (Auto) 0.67 H Absolute Nucleated RBC 0.88 H Immature Gran % 3 H Nucleated RBC % 4 H Sodium 131 L Potassium 3.6 D Chloride 98 Carbon Dioxide 21.5 Anion Gap 12 BUN 76 H Creatinine 3.9 H D Estim Creat Clear Calc 14.1 L eGFR 16 L BUN/Creatinine Ratio 19 Glucose 129 H Calculated Osmolality 287 Calcium 7.4 L Corrected Calcium 8.7 Phosphorus 5.3 H Magnesium 2.0 Erythropoietin 2120.3 H Total Bilirubin 1.3 H AST 68 H ALT 68 H Alkaline Phosphatase 233 H D Total Protein 4.4 L Albumin 2.4 L Globulin 2.0 L Albumin/Globulin Ratio 1.2 Misc Test Result Platelets confirmed Blood Type O Positive Antibody Screen NEGATIVE Crossmatch See Detail Blood Bank Wristband ID Yes Blood Bank Comment PLATP Ready 06/10/24 05:48 WBC 19.7 H RBC 3.03 L Hgb 8.6 L Hct 24.6 L MCV 81 MCH 28.4 MCHC 35.0 RDW Std Deviation 50.0 H Plt Count 28 L* D Neut % (Auto) 87 H Lymph % (Auto) 3 L [place] % (Auto) 6 Eos % (Auto) 0 Baso % (Auto) 0 Neut # (Auto) 17.1 H Lymph # (Auto) 0.6 L [place] # (Auto) 1.3 H Eos # (Auto) 0.0 Baso # (Auto) 0.1 Immature Gran # (Auto) 0.61 H Absolute Nucleated RBC 0.68 H Immature Gran % 3 H Nucleated RBC % 4 H Sodium 132 L Potassium 3.3 L Chloride 97 L Carbon Dioxide 20.4 Anion Gap 15 BUN 81 H Creatinine 4.0 H Estim Creat Clear Calc 13.8 L eGFR 15 L BUN/Creatinine Ratio 20 Glucose 148 H Calculated Osmolality 291 Calcium 7.8 L Corrected Calcium 8.8 Phosphorus 5.5 H Magnesium 2.0 Erythropoietin Total Bilirubin 1.3 H AST 32 ALT 57 H Alkaline Phosphatase 222 H Total Protein 4.8 L Albumin 2.7 L Globulin 2.1 L Albumin/Globulin Ratio 1.3 Misc Test Result See comment Blood Type Antibody Screen Crossmatch Blood Bank Wristband ID Blood Bank Comment ABG Interpretation ABG results: 05/31/24 05/31/24 05/31/24 09:33 14:33 16:21 ABG pH 7.25 L 7.18 L* 7.30 L D ABG pCO2 68 H 78 H* D 57 H D ABG pO2 88 124 H D 69 L D ABG HCO3 30 H 29 H 28 H ABG O2 Saturation 96 99 H 94 ABG Base Excess 2 -1 1 VBG pH VBG pCO2 VBG pO2 VBG Base Excess 06/01/24 06/02/24 06/04/24 07:51 18:15 16:07 ABG pH 7.49 H D 7.47 H ABG pCO2 37 D 44 ABG pO2 49 L* D 48 L* ABG HCO3 28 H 32 H ABG O2 Saturation 89 L 86 L ABG Base Excess 5 H 7 H VBG pH 7.45 VBG pCO2 31 L VBG pO2 64 H VBG Base Excess -2 06/06/24 06/07/24 10:24 05:12 ABG pH 7.30 L ABG pCO2 47 ABG pO2 56 L* ABG HCO3 23 ABG O2 Saturation 83 L ABG Base Excess -3 VBG pH 7.35 VBG pCO2 46 D VBG pO2 52 VBG Base Excess 0 Assessment & Plan A&P Narrative 73-year-old male with past medical history of 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 1. A-fib with RVR, new onset 2. Hypokalemia ?Patient developed A-fib with RVR on 06/02/2024 ?Initial EKG showed on admission sinus tachycardia. ?Repeat EKG on 05/31/2024 that showed sinus rhythm ?EKG on 06/02/2024 showed A-fib with RVR and at this time patient's potassium was 2.9. ?Patient is currently DNR/DNI as per family's wishes ? Patient' family did not want any cardioversion at this time. Plan: ?Continue amiodarone drip for now and add amiodarone 200 p.o BID ?Recommend start patient on Eliquis 5 mg twice daily ? Recommend to keep potassium magnesium above 4 and 2 respectively to avoid any further arrhythmias ?Recommend primary care team to have goals of care discussion 06/10/2024: Patient is on mechanical ventilation at the present point of time. Family again changed his status to limited code and wanted to Patient continues to be in A-fib overnight Continue amiodarone for now. Keep potassium greater than 4 and magnesium greater than 2.0 at all times. Unable to do dialysis as per nephrology and primary critical care team as well as nephrology team did discuss goals of care with the family but the patient is still continues to be a limited code with resuscitation except for chest compression. Patient's platelets are also at 17,000. no heprin drip for now Overall patient has multiorgan dysfunction and deteriorating clinical condition over the last couple of days. At the request of the critical care team I did also speak to the son Mr. Muniz for almost 20 to 30 minutes to update the patient about the workup done till now, the treatment as well as the prognosis for the patient in detail. Discussed regarding the goals of care including comfort care in detail and answered all questions to their satisfaction. Son informed me that they will come back with their entire family tomorrow and will let us know their decision. Patient is on pressors and sedation 3. Acute on chronic hypoxic respiratory failure 4. Bilateral community-acquired pneumonia versus hospital-acquired pneumonia ? Continue management as per primary care team 5. Large bowel obstruction ?Continue management as per primary care team 6. CVA with residual deficits 7. Chronic PEG tube and tracheostomy ?Continue current management per primary care team 8. DM2 ? Continue current management as per primary care team 9. Bilateral upper extremity DVTs ? Continue current management as per primary care team 10. Anxiety 11. Depression ? Continue current management as per primary care team 12. Recurrent UTIs ? Continue current management as per primary care team There is a high probability of sudden, clinically significant or life threatening deterioration in the patient condition which required the highest level of physician preparedness to intervene urgently. I have personally spent total of 65 minutes of critical care time yesterday, exclusive of time spent on any procedures, in evaluation and management of this critically ill patient. Management of rest of the medical conditions as per primary team and other consultants. Thank you for the consult and allowing me to participate in the care of the patient. Cardiology will continue to follow. Kit Ho M.D. Interventional Cardiology Time Spent With Patient Time: Total time spent is greater than 50% in coordination of care (as documented) at patient's floor/unit and/or counseling patient:
[2024-06-10] MEDS: Norepinephrine/D5W 8mg/250ml 8 MG/250 ML BAG 22.344 MG IV (09:36)
--- NOTE | 2024-06-10 14:01 | CHAP ---
09:30 AM Visited by spiritual care volunteer Provided prayer for Patient.
--- NOTE | 2024-06-10 14:03 | ESPR_ITS ---
Documentation for date of: 06/10/24 Subjective Subjective Interval history: Spoke with the attending RN Enteral feeding to be started today Patient mechanically ventilated through the tracheostomy PEG site looks clean and good no drainage Exam Vital Signs Temp Pulse Resp BP Pulse Ox O2 Del Method O2 Flow Rate 97 F 77 28 H 111/58 L 98 Mechanical Ventilation 90 06/10/24 08:00 06/10/24 13:09 06/10/24 10:45 06/10/24 13:09 06/10/24 10:45 06/09/24 04:00 06/07/24 17:00 FiO2 70 06/10/24 10:19 Objective Labs 06/10/24 05:48 06/10/24 05:48 Labs: Laboratory Results - last 24 hr 06/05/24 06/07/24 06/09/24 18:08 09:00 16:49 WBC 22.1 H RBC 2.78 L Hgb 8.0 L Hct 22.9 L MCV 82 MCH 28.8 MCHC 34.9 RDW Std Deviation 51.3 H Plt Count 8 L* D Neut % (Auto) 87 H Lymph % (Auto) 3 L Mcdonough % (Auto) 6 Eos % (Auto) 1 Baso % (Auto) 0 Neut # (Auto) 19.2 H Lymph # (Auto) 0.7 L Mcdonough # (Auto) 1.4 H Eos # (Auto) 0.1 Baso # (Auto) 0.1 Immature Gran # (Auto) 0.67 H Absolute Nucleated RBC 0.88 H Immature Gran % 3 H Nucleated RBC % 4 H Sodium 131 L Potassium 3.6 D Chloride 98 Carbon Dioxide 21.5 Anion Gap 12 BUN 76 H Creatinine 3.9 H D Estim Creat Clear Calc 14.1 L eGFR 16 L BUN/Creatinine Ratio 19 Glucose 129 H Calculated Osmolality 287 Calcium 7.4 L Corrected Calcium 8.7 Phosphorus 5.3 H Magnesium 2.0 Erythropoietin 2120.3 H Total Bilirubin 1.3 H AST 68 H ALT 68 H Alkaline Phosphatase 233 H D Total Protein 4.4 L Albumin 2.4 L Globulin 2.0 L Albumin/Globulin Ratio 1.2 Misc Test Result Platelets confirmed Blood Type O Positive Antibody Screen NEGATIVE Crossmatch See Detail Blood Bank Wristband ID Yes Blood Bank Comment PLATP Ready 06/10/24 05:48 WBC 19.7 H RBC 3.03 L Hgb 8.6 L Hct 24.6 L MCV 81 MCH 28.4 MCHC 35.0 RDW Std Deviation 50.0 H Plt Count 28 L* D Neut % (Auto) 87 H Lymph % (Auto) 3 L Mcdonough % (Auto) 6 Eos % (Auto) 0 Baso % (Auto) 0 Neut # (Auto) 17.1 H Lymph # (Auto) 0.6 L Mcdonough # (Auto) 1.3 H Eos # (Auto) 0.0 Baso # (Auto) 0.1 Immature Gran # (Auto) 0.61 H Absolute Nucleated RBC 0.68 H Immature Gran % 3 H Nucleated RBC % 4 H Sodium 132 L Potassium 3.3 L Chloride 97 L Carbon Dioxide 20.4 Anion Gap 15 BUN 81 H Creatinine 4.0 H Estim Creat Clear Calc 13.8 L eGFR 15 L BUN/Creatinine Ratio 20 Glucose 148 H Calculated Osmolality 291 Calcium 7.8 L Corrected Calcium 8.8 Phosphorus 5.5 H Magnesium 2.0 Erythropoietin Total Bilirubin 1.3 H AST 32 ALT 57 H Alkaline Phosphatase 222 H Total Protein 4.8 L Albumin 2.7 L Globulin 2.1 L Albumin/Globulin Ratio 1.3 Misc Test Result See comment Blood Type Antibody Screen Crossmatch Blood Bank Wristband ID Blood Bank Comment Impressions Impression: # Failure to thrive # Status postplacement of a PEG tube Start enteral hyperalimentation via the PEG tube# ABG Interpretation ABG results: 05/31/24 05/31/24 05/31/24 09:33 14:33 16:21 ABG pH 7.25 L 7.18 L* 7.30 L D ABG pCO2 68 H 78 H* D 57 H D ABG pO2 88 124 H D 69 L D ABG HCO3 30 H 29 H 28 H ABG O2 Saturation 96 99 H 94 ABG Base Excess 2 -1 1 VBG pH VBG pCO2 VBG pO2 VBG Base Excess 06/01/24 06/02/24 06/04/24 07:51 18:15 16:07 ABG pH 7.49 H D 7.47 H ABG pCO2 37 D 44 ABG pO2 49 L* D 48 L* ABG HCO3 28 H 32 H ABG O2 Saturation 89 L 86 L ABG Base Excess 5 H 7 H VBG pH 7.45 VBG pCO2 31 L VBG pO2 64 H VBG Base Excess -2 06/06/24 06/07/24 10:24 05:12 ABG pH 7.30 L ABG pCO2 47 ABG pO2 56 L* ABG HCO3 23 ABG O2 Saturation 83 L ABG Base Excess -3 VBG pH 7.35 VBG pCO2 46 D VBG pO2 52 VBG Base Excess 0 Assessment & Plan A&P Narrative 73-year-old male with past medical history of 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 1. A-fib with RVR, new onset 2. Hypokalemia ?Patient developed A-fib with RVR on 06/02/2024 ?Initial EKG showed on admission sinus tachycardia. ?Repeat EKG on 05/31/2024 that showed sinus rhythm ?EKG on 06/02/2024 showed A-fib with RVR and at this time patient's potassium was 2.9. ?Patient is currently DNR/DNI as per family's wishes ? Patient' family did not want any cardioversion at this time. Plan: ?Continue amiodarone drip for now and add amiodarone 200 p.o BID ?Recommend start patient on Eliquis 5 mg twice daily ? Recommend to keep potassium magnesium above 4 and 2 respectively to avoid any further arrhythmias ?Recommend primary care team to have goals of care discussion 06/09/2024 Patient is on mechanical ventilation at the present point of time. Family again changed his status to limited code and wanted to Patient continues to be in A-fib overnight Continue amiodarone for now. Keep potassium greater than 4 and magnesium greater than 2.0 at all times. Unable to do dialysis as per nephrology and primary critical care team as well as nephrology team did discuss goals of care with the family but the patient is still continues to be a limited code with resuscitation except for chest compression. Patient's platelets are also at 17,000. no heprin drip for now Overall patient has multiorgan dysfunction and deteriorating clinical condition over the last couple of days. At the request of the critical care team I did also speak to the son Mr. Muniz for almost 20 to 30 minutes to update the patient about the workup done till now, the treatment as well as the prognosis for the patient in detail. Discussed regarding the goals of care including comfort care in detail and answered all questions to their satisfaction. Son informed me that they will come back with their entire family tomorrow and will let us know their decision. Patient is on pressors and sedation 3. Acute on chronic hypoxic respiratory failure 4. Bilateral community-acquired pneumonia versus hospital-acquired pneumonia ? Continue management as per primary care team 5. Large bowel obstruction ?Continue management as per primary care team 6. CVA with residual deficits 7. Chronic PEG tube and tracheostomy ?Continue current management per primary care team 8. DM2 ? Continue current management as per primary care team 9. Bilateral upper extremity DVTs ? Continue current management as per primary care team 10. Anxiety 11. Depression ? Continue current management as per primary care team 12. Recurrent UTIs ? Continue current management as per primary care team There is a high probability of sudden, clinically significant or life threatening deterioration in the patient condition which required the highest level of physician preparedness to intervene urgently. I have personally spent total of 65 minutes of critical care time yesterday, exclusive of time spent on any procedures, in evaluation and management of this critically ill patient. Management of rest of the medical conditions as per primary team and other consultants. Thank you for the consult and allowing me to participate in the care of the patient. Cardiology will continue to follow. Kit Ho M.D. Interventional Cardiology Time Spent With Patient Time: Total time spent is greater than 50% in coordination of care (as documented) at patient's floor/unit and/or counseling patient:
[2024-06-10 14:54] LABS: INR 1.3 (0.9-1.3); Partial Thromboplastin Time 43.9 Seconds (22.0-36.0); Prothrombin Time 13.6 Seconds (9.0-12.2)
[2024-06-10 14:56] LABS: LDH (Lactate Dehydrogenase) 496 U/L (120-246)
[2024-06-10 15:30] LABS: Fibrinogen 386 mg/dL (175-375)
[2024-06-10] MEDS: LEVOFLOXACIN/D5W 500 MG IVPB 500 MG/100 ML BAG 100 MG IV (17:51)
--- NOTE | 2024-06-10 17:55 | PD.RESPRO ---
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 Patient recently came to the ED on 05/24/2024 with similar complaints and received enema following which patient had a bowel movement and transferred back to the facility. Later patient was still found to have constipation for which Dr. Durant was consulted and patient received different bowel regimens and GoLytely with no much effect on constipation. As the patient is having progressive severe abdominal distention with constipation despite bowel regimens and GoLytely he was brought to the hospital today. No history of fever, vomiting. Dr. Durant was consulted and he tried to manually disimpact the stools but unsuccessful. Later Dr Cramer was consulted. 06/07/2024: Patient seen and examined at bedside. Dialysis attempted, however patient's blood was too thick to be properly dialyzed. In addition, patient developed tachycardia and hypotension. Per nephrology, patient is not a candidate for further dialysis sessions. Patient remains sedated and ventilated. Hemoglobin and platelets dropped, 1 unit PRBC and 1 unit platelets ordered. Patient developed sinus tachycardia during PRBC transfusion, rate slowed from 125 ml/hr to 75 ml/hr with improvement in tachycardia. Bumex 3mg IV x1 given without any urinary output. Contact precautions initiated due to Acinetobacter baumannii/haemol infection. Family updated regarding patient's condition and poor prognosis. 06/08/2024: Patient seen and examined at bedside. Spoke with dental instrument maker who reiterated patient is not to a candidate for dialysis. Sedation tapered off. Patient had episode of hypotension and respiratory distress with hypoxia, managed emergent bronchoscopy with lavage of bilateral lungs and with vent setting alterations: Tidal volume 400, rate 28, PEEP 12, FiO2 100%. Will continue to titrate FiO2 down as tolerated, maintaining SpO2 88-92% we will continue to titrate pressors as tolerated. Chest x-ray showed increased fluid in lungs. Patient continues to produce no urine. Worsening cyanosis of distal extremities. Platelet count 17, platelets ordered. 06/09/2024: The patient was examined at the bedside this morning. He continues to be in respiratory distress, with RR 30-35. Blood draws for labs were attempted, but as the blood has been thick in consistency, multiple attempts were failed. Beam Doffer reported that the patient is not a candidate for hemodialysis as the blood is too thick to be out of the hemodialysis catheter and he cannot be given heparin as platelet count was 17 yesterday. Goals of care discussion was done with the patient's and son, who reported that they will touch base with all the family members and decide regarding proceeding further. We will attempt again to withdrawal blood samples for labs through hemodialysis catheter, and plan his treatment accordingly. After blood draw, we will remove his hemodialysis catheter. 06/10/2024: The patient was examined at the bedside this morning. He continues to be in respiratory distress, RR 30-35, saturating greater than 88% on FiO2 70%. He continues to be on Levophed drip at 0.21. Blood works were done by withdrawing the blood from right femoral hemodialysis catheter. Physical examination was significant for blisters of size measuring up to 2 into 3 cm on left lower extremity, and bluish discoloration of bilateral lower extremity distal half of bilateral foot. Peripheral pulses were very minimally palpable, and the patient is not a candidate for any surgical procedure given the platelet count of 18. Medicine labs are significant for white count trending down to 19.7, hemoglobin 8.6, platelet 28, PT 13.6, INR 1.3, PTT 43.9, and fibrinogen 386. Chemistry revealed sodium 132, potassium 3.3, was repleted with 20 mEq of oral KCl, BUN 81, creatinine 4.0, blood sugar 148, phosphorus 5.5 and we will continue with calcium acetate and sevelamer. Liver enzymes trending down. We will continue with 3 mg IV Bumex twice daily as patient has been bringing out some urine, approximately 500 cc in the entire daytime. Updates were given to the family members. We removed right femoral hemodialysis catheter as the patient is not a candidate for hemodialysis at this point, and it would only lead to further complications. Exam Vital Signs Temp Pulse Resp BP Pulse Ox O2 Del Method O2 Flow Rate 97.1 F 77 28 H 87/48 L 85 L Mechanical Ventilation 90 06/10/24 16:00 06/10/24 17:45 06/10/24 17:45 06/10/24 17:45 06/10/24 17:16 06/09/24 04:00 06/07/24 17:00 FiO2 70 06/10/24 14:23 Narrative Exam PE: Gen: Alert, poorly responsive. Tracheostomy. HEENT: NCAT, anicteric conjunctivae. Dry mucous membranes. CVS: No M/R/G. Afib Resp: Coarse lung sounds. Rhonchi and wheezing all lung ansari. Abd: Abdomen distended, soft. PEG tube. MSK: Good ROM in BUE & BLE. Bilateral lower and upper extremity edema. Edematous scrotum. Left and right foot cyanosis, progressing up to distal half of BL foot, Peripheral pulses very much feeble on dorsal pedis and posterior femoral. Neuro: CN II-XII grossly intact. Baseline nonverbal. Sometimes tracks sounds. Objective Labs 06/18/24 06:57 06/18/24 06:57 Labs: Laboratory Results - last 24 hr 06/05/24 06/07/24 06/10/24 18:08 09:00 05:48 WBC 19.7 H RBC 3.03 L Hgb 8.6 L Hct 24.6 L MCV 81 MCH 28.4 MCHC 35.0 RDW Std Deviation 50.0 H Plt Count 28 L* D Neut % (Auto) 87 H Lymph % (Auto) 3 L Metcalfe % (Auto) 6 Eos % (Auto) 0 Baso % (Auto) 0 Neut # (Auto) 17.1 H Lymph # (Auto) 0.6 L Metcalfe # (Auto) 1.3 H Eos # (Auto) 0.0 Baso # (Auto) 0.1 Immature Gran # (Auto) 0.61 H Absolute Nucleated RBC 0.68 H Immature Gran % 3 H Nucleated RBC % 4 H PT INR APTT Fibrinogen Sodium 132 L Potassium 3.3 L Chloride 97 L Carbon Dioxide 20.4 Anion Gap 15 BUN 81 H Creatinine 4.0 H Estim Creat Clear Calc 13.8 L eGFR 15 L BUN/Creatinine Ratio 20 Glucose 148 H Calculated Osmolality 291 Calcium 7.8 L Corrected Calcium 8.8 Phosphorus 5.5 H Magnesium 2.0 Erythropoietin 2120.3 H Total Bilirubin 1.3 H AST 32 ALT 57 H Alkaline Phosphatase 222 H Lactate Dehydrogenase Total Protein 4.8 L Albumin 2.7 L Globulin 2.1 L Albumin/Globulin Ratio 1.3 Misc Test Result See comment Blood Type O Positive Antibody Screen NEGATIVE Crossmatch See Detail Blood Bank Wristband ID Yes Blood Bank Comment PLATP Ready 06/10/24 14:28 WBC RBC Hgb Hct MCV MCH MCHC RDW Std Deviation Plt Count Neut % (Auto) Lymph % (Auto) Metcalfe % (Auto) Eos % (Auto) Baso % (Auto) Neut # (Auto) Lymph # (Auto) Metcalfe # (Auto) Eos # (Auto) Baso # (Auto) Immature Gran # (Auto) Absolute Nucleated RBC Immature Gran % Nucleated RBC % PT 13.6 H INR 1.3 APTT 43.9 H Fibrinogen 386 H Sodium Potassium Chloride Carbon Dioxide Anion Gap BUN Creatinine Estim Creat Clear Calc eGFR BUN/Creatinine Ratio Glucose Calculated Osmolality Calcium Corrected Calcium Phosphorus Magnesium Erythropoietin Total Bilirubin AST ALT Alkaline Phosphatase Lactate Dehydrogenase 496 H Total Protein Albumin Globulin Albumin/Globulin Ratio Misc Test Result Blood Type Antibody Screen Crossmatch Blood Bank Wristband ID Blood Bank Comment ABG Interpretation ABG results: 05/31/24 05/31/24 05/31/24 09:33 14:33 16:21 ABG pH 7.25 L 7.18 L* 7.30 L D ABG pCO2 68 H 78 H* D 57 H D ABG pO2 88 124 H D 69 L D ABG HCO3 30 H 29 H 28 H ABG O2 Saturation 96 99 H 94 ABG Base Excess 2 -1 1 VBG pH VBG pCO2 VBG pO2 VBG Base Excess 06/01/24 06/02/24 06/04/24 07:51 18:15 16:07 ABG pH 7.49 H D 7.47 H ABG pCO2 37 D 44 ABG pO2 49 L* D 48 L* ABG HCO3 28 H 32 H ABG O2 Saturation 89 L 86 L ABG Base Excess 5 H 7 H VBG pH 7.45 VBG pCO2 31 L VBG pO2 64 H VBG Base Excess -2 06/06/24 06/07/24 10:24 05:12 ABG pH 7.30 L ABG pCO2 47 ABG pO2 56 L* ABG HCO3 23 ABG O2 Saturation 83 L ABG Base Excess -3 VBG pH 7.35 VBG pCO2 46 D VBG pO2 52 VBG Base Excess 0 Quality Measures Quality Measures VTE prophylaxis Advance care planning discussed with:: spouse and child Assessment & Plan Assessment Current Active Medications: Generic Name Dose Route Start Last Admin Trade Name Freq PRN Reason Stop Dose Admin Acetaminophen 650 mg 06/04/24 15:09 06/04/24 16:40 Acetaminophen Lindsey 325 Mg/10 Ml Udc GT 07/04/24 15:08 650 mg Q6HR PRN Administration Pain Or Fever > 100.4 Albuterol/Ipratropium 3 ml 06/04/24 15:33 Albuterol/Ipratropium (Duoneb) Rt Lindsey 3 Ml Nebu INH 07/04/24 15:32 Q2HR PRN SHORTNESS OF BREATH OR WHEEZE Amiodarone HCl 200 mg 06/05/24 21:00 06/10/24 08:33 Amiodarone Hcl 200 Mg Tablet GT 07/05/24 20:59 200 mg BID XOCHITL Administration Artificial Tears 0 drop 06/08/24 19:44 06/08/24 20:14 Artificial Tears 225 Drop/15 Ml Btl BOTH EYES 07/08/24 19:43 1 drop PRN PRN Administration TO KEEP EYES MOIST Bumetanide 3 mg 06/09/24 13:15 06/10/24 08:33 Bumetanide Inj 0.25 Mg/Ml Vial 4 Ml IVP 07/09/24 13:14 3 mg BID XOCHITL Administration Calcium Acetate 667 mg 06/08/24 08:45 06/10/24 17:50 Calcium Acetate 667 Mg Tablet GT 07/04/24 18:44 667 mg TIDWM XOCHITL Administration Dextrose 25 ml 06/04/24 15:32 Dextrose 50%-Water Inj 50 Ml Syringe IV 07/04/24 15:31 Q15MIN PRN BG 50-70 responsive npo pt Dextrose 50 ml 06/04/24 15:32 Dextrose 50%-Water Inj 50 Ml Syringe IV 07/04/24 15:31 Q15MIN PRN BG <50 OR BG <70 & pt unresponsive Heparin Sodium (Porcine) 5,000 unit 06/04/24 22:00 06/06/24 06:18 Heparin Sod Inj 5000 Unit/Ml Vial SC 06/18/24 21:59 5,000 unit Q8HR XOCHITL Administration Heparin Sodium (Porcine) 2,200 unit 06/05/24 17:03 06/07/24 08:55 Heparin Sod Inj 1000 Unit/Ml Vial 10 Ml INDWELLCAT 06/19/24 17:02 2,200 unit PRN PRN Administration DIALYSIS Norepinephrine/Dextrose 8 mg in 250 mls @ 6.572 mls/hr 06/03/24 11:37 06/10/24 15:34 Levophed In D5w 8mg/250ml IV 07/03/24 11:36 0.21 mcg/kg/min .Q24H PRN 27.602 mls/hr PER PROTOCOL Titration Protocol 0.05 MCG/KG/MIN Levofloxacin/Dextrose 500 mg in 100 mls @ 100 mls/hr 06/06/24 18:30 06/10/24 17:51 Levaquin Ivpb IV 06/13/24 18:29 100 mls/hr Q48H XOCHITL Administration Albumin Human 25 gm in 100 mls @ 100 mls/min 06/05/24 17:05 06/07/24 08:32 Albuminar-25 Ivpb IV Infused PRN PRN Infusion DIALYSIS Fentanyl Citrate 2,500 mcg in 250 mls @ 2.5 mls/hr 06/06/24 08:54 06/08/24 16:13 Sublimaze Inj 2,500 Mcg/250 Ml Bag IV 06/11/24 08:53 0 mcg/hr .Q24H PRN 0 mls/hr PER PROTOCOL Titration Protocol 25 MCG/HR Propofol 1,000 mg in 100 mls @ 2.025 mls/hr 06/06/24 08:55 06/08/24 13:28 Diprivan Ivpb IV 07/06/24 08:54 0 mcg/kg/min .Q24H PRN 0 mls/hr PER PROTOCOL Titration Protocol 5 MCG/KG/MIN Clindamycin/Sodium Chloride 600 mg in 50 mls @ 100 mls/hr 06/07/24 18:00 06/10/24 17:51 Cleocin/Ns Ivpb IV 06/14/24 17:59 100 mls/hr Q6HR XOCHITL Administration Insulin Human Regular 0 unit 06/04/24 18:00 06/10/24 17:47 Insulin Hum Regular 1 Unit/0.01 Ml (Per Unit) SC 07/04/24 17:59 Not Given Q6HR XOCHITL Protocol Lactulose 20 gm 06/08/24 09:00 06/09/24 08:54 Lactulose Syrup 20 Gm/30 Ml Udc GT 07/04/24 21:59 Not Given QDAY XOCHITL Protocol Midodrine 5 mg 06/09/24 14:00 06/10/24 13:09 Midodrine 5 Mg Tablet GT 07/09/24 13:59 5 mg TID XOCHITL Administration Pantoprazole Sodium 40 mg 06/04/24 15:30 06/10/24 08:34 Pantoprazole Inj 40 Mg Vial IVP 07/04/24 15:29 40 mg QDAY XOCHITL Administration Pharmacy Consult 1 each 06/04/24 18:24 Pharmacy Renal Dose Adjustment 1 Ea XX 07/04/24 18:23 PRN PRN CONSULT Sevelamer Carbonate 800 mg 06/10/24 07:45 06/10/24 13:09 Sevelamer Carbonate 800 Mg Tablet PO 07/10/24 07:44 800 mg TID XOCHITL Administration Plan 73-year-old male with 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 06/10/2024: The patient was examined at the bedside this morning. He continues to be in respiratory distress, RR 30-35, saturating greater than 88% on FiO2 70%. He continues to be on Levophed drip at 0.21. Blood works were done by withdrawing the blood from right femoral hemodialysis catheter. Physical examination was significant for blisters of size measuring up to 2 into 3 cm on left lower extremity, and bluish discoloration of bilateral lower extremity distal half of bilateral foot. Peripheral pulses were very minimally palpable, and the patient is not a candidate for any surgical procedure given the platelet count of 18. Medicine labs are significant for white count trending down to 19.7, hemoglobin 8.6, platelet 28, PT 13.6, INR 1.3, PTT 43.9, and fibrinogen 386. Chemistry revealed sodium 132, potassium 3.3, was repleted with 20 mEq of oral KCl, BUN 81, creatinine 4.0, blood sugar 148, phosphorus 5.5 and we will continue with calcium acetate and sevelamer. Liver enzymes trending down. We will continue with 3 mg IV Bumex twice daily as patient has been bringing out some urine, approximately 500 cc in the entire daytime. Updates were given to the family members. We removed right femoral hemodialysis catheter as the patient is not a candidate for hemodialysis at this point, and it would only lead to further complications. Neuro: #Chronic encephalopathy #CVA with residual deficits Metabolic encephalopathy due to hypoxia Patient is nonverbal at baseline, per family at bedside he is normally somewhat interactive. Currently patient is responsive only to pain, opens eyes, does not track sounds. Patient became close to baseline, responds to loud sounds, does not follow commands or have purposeful movement. Patient became agitated during dialysis, sedated to maintain vent synchronicity. Patient no longer candidate for dialysis as the blood is too thick to pull out of veins, weaning off sedation. -Monitor CVS: #Septic shock 2/2 Acenetobacter baummani and enterobacter aerogenes pneumonia Patient started on levofloxacin based on previous cultures, dosed for acute kidney injury. -Close monitoring -Levophed, titrate as needed -Levofloxacin 750 mg IV x1, followed by Levofloxacin 500 mg IV q48h (Started 06/04) -Clindamycin 600mg IV q6h (started 06/07) -Follow-up blood cultures, has been negative for 48H #Bilateral LL PAD Physical exam revealed severe peripheral arterial disease with, minimal pulses felt at BL dorsalis pedis and posterior tibialis, with bluish discoloration of BL distal half of foot. -Patient is not a candidate for any surgical intervention due to DIC and platelet count of 28. #Afib Patient developed afib with RVR prompting rapid response. Amio bolus given, drip completed. Worsening tachycardia during dialysis, resolved with 150mg bolus amiodorone x1. -amiodarone 200mg GT BID -telemonitoring Pulm: #Acute hypoxic respiratory failure #Aspiration pneumonia #ARDS Patient developed worsening hypoxia despite increasing FiO2 on the floors following massive aspiration. Chest x-ray shows significant bilateral pneumonia, more severe on the left side. Patient has significantly distended abdomen, present on lungs. ABG showed pH 7.18, pCO2 70, pO2 124. Vent settings changed to increase tidal volume and respiratory rate, repeat ABG showed pH 7.3, pCO2 57, pO2 69. Patient improved enough for downgrade to telemetry, was later upgraded back to ICU for worsening hypoxia, hypotension, afib with RVR. Patient continues to have high FiO2 requirements to maintain saturation. Tidal volume decreased from 450 to 380. After sedation discontinued, patient became hypoxic/hypertensive, initially managed with vent settings but required emergent bronchoscopy with lavage of bilateral lungs. Chest x-ray showed increasing fluid in lungs. -Maintain vent settings, wean down FiO2 as tolerated -Lung protective vent strategies -Duoneb as needed -Antibiotics as above GI: #Transaminitis DDx Medication effect vs. severe acute illness Patient has had mild transaminitis during hospital stay. Slightly uptrending, patient on levaquin and amiodarone. Timing does not match rise in LFTs, could be contributing factor. Downtrending -monitor #PEG tube Patient has chronic PEG tube. Feeds have been held due to large bowel obstruction, now resolved. -Tube feeds, 20ml/hr with 25ml/hr water flushes Renal: #ATN Patient developed ATN due to ischemia in setting of hypotension. Patient had left femoral tri-flow cath placed for dialysis. Patient had difficulty with dialysis. On third day, blood was too thick to properly dialyze. Patient deemed to unstable for furhter dialysis by dental instrument maker. Family updated on patient status. Patient anuric. Bumex 3mg IV given x1 without urine output. Patient remains severely fluid overloaded. -Started on Bumex 3mg BID -Not suitable candidate for dialysis #Hypokalemia Patient has had low potassium of 3.3, . Patient was given multiple doses of potassium chloride, potassium improved to 3.5. After family requested treatment, repeat labs were drawn, potassium 2.2. -Repleted with 20meq KCl -Monitor -Replete as needed Endo: #DM Patient history -ISS Heme: #Thrombocytopenia due to DIC Patient has had mild thrombocytopenia, steadily worsening for several days. Recently downtrended to 47. No signs of thrombosis or hemorrhaging. DIC panel: PT 14.5, PTT 49, Fibrinogen 515, D-Dimer >3820. LDH elevated. Platelets down to 28 -Monitor -Treat underlying conditions -Replace platelets if <20k #Leukocytosis Likely due to infection and reactive to patient's worsening overall status. -downtrending -Monitor #Normocytic anemia Patient has chronic normocytic anemia, slightly worse than normal currently. No signs of bleeding. -Monitor ID: #Sepsis Procal 8.19. Fevers. Patient received Vancomycin and Zosyn previously. Blood cultures grew MRSA, sputum cultures grew Acinetobacter baumannii/haemol. Will adjust antibiotic dosage for reduced creatinine clearance -Levofloxacin 750 mg IV x1, followed by Levofloxacin 500 mg IV q48h (Started 06/04) -Clindamycin 600mg IV q6h (started 06/07) -Tylenol as needed for fevers -contact precautions Skin/MSK: #Deep tissue injury Patient has deep tissue injury to right upper back. -bandaged #Stage two pressure ulcer Patient has stage 2 pressure ulcer to right buttock. -bandaged ICU Health maintenance: Mechanical ventilation: Yes Sedation:Yes Diet: Tube feeds via PEG DVT ppx: None GI ppx: Protonix Godinez: No IV lines: Peripheral IVs Central line: Femoral tri-flow- DC on 06/10 Arterial line: No Code status: Limited Code: No compressions The patient's management plan was discussed with my attending physician MD Alex Franz MD, PGY2 Attending Provider Attestation/Addendum Patient seen and examined with above resident, Alex Garcia MD. I agree with the findings, assessment, and plan of care as documented except for any differences below. Patient continued on current mechanical ventilation settings requiring high FiO2 and PEEP. Levophed drip remains not significantly changed at this point with titration up and down. Patient no longer candidate for hemodialysis and catheter was used for blood draw prior to discontinuation. Patient on exam notably has significant lower extremity distal cyanosis and likely will have ischemia. Patient on ultrasound does have pulses intact but this is likely related to high dose of vasopressors and peripheral artery disease. Patient is not a surgical candidate given his low platelet count nor is he a candidate for aspirin or Plavix at this point. Heparin drip currently will also predispose the patient to bleeding. At this point we will continue to use warm blankets and optimization of circulation. Patient remains off of hemodialysis as needed by nephrology and we will attempt to use Bumex to 4 volume removal by kidneys even though he has poor renal function. Godinez has not been in place as to prevent any further source for infection complicating already septic shock secondary to aspiration pneumonia and his respiratory failure. Pressures on ventilator remain high likely in the setting of both poor compliance from infection as well as fluid status. Patient is on appropriate antibiotics based on culture data of which showed Acinetobacter. Patient with multiorgan failure with latest findings of peripheral cyanosis and limb ischemia likely due to small vessel disease in the presence of high-dose vasopressors. No need for additional blood products at this time. Patient's family updated and multiple discussions about poor prognosis given his multiorgan failure. Total critical care time: I personally spent 40 minutes for review of physiologic parameters, directing plan of care throughout the day, and coordination of care with other specialists. This is exclusive of time spent teaching housestaff or performing any separate billable procedures. Patient continues to require critical care services for acute on chronic hypoxic respiratory failure secondary to Acinetobacter baumannii pneumonia complicated by acute renal failure and peripheral lower extremity ischemia limited ability to intervene. Continue aggressive supportive care as per patient's and family with ongoing discussions being had. Patient remains at high risk for further morbidity and mortality warranting close monitoring and care only available in the intensive care unit.
[2024-06-10] MEDS: Norepinephrine/D5W 8mg/250ml 8 MG/250 ML BAG 30.231 MG IV (19:50)
[2024-06-11] VITALS (113 sets, daily range): BP systolic 83–157; BP diastolic 27–92; PULSE 49–108; RESP 23–33; TEMP 36.3–37.2; O2SAT 61–100; BMI 28.9
--- NOTE | 2024-06-11 04:00 | PC.NURSE ---
Dr Mark at bedside explaining to family pts poor iv access despite multiple attempts to place iv's. and daughter were made aware that if iv access is lost a new iv might not be able to be placed. Explained to family that pt is on high dose of levophed to maintain blood pressure and without this medication has a chance of expiration. Pt family verbalized understanding and requests no invasive lines such a central line access. Dr Mark explained code status and poor prognosis. Family requesting no measures taken if his heart stops but wants full treatment up to that point at this time
[2024-06-11] MEDS: Norepinephrine/D5W 8mg/250ml 8 MG/250 ML BAG 30.231 MG IV (04:07)
--- NOTE | 2024-06-11 04:25 | PD.RESEVENT ---
Documentation for date of: 06/11/24 Event Note Event Note: Around 3:30 AM were having difficulty with peripheral IVs for which we will try multiple attempts with ultrasound and initially unsuccessful and later on peripheral IV was obtained and left upper arm otherwise is not a good IV access and we do not for how long that IV access would be accessible, and the neck step will be a central line catheter. I spoke over the phone with patient's son Flavio and Daughter Kim and they stated they were on the way to the hospital. Around 4:15 o'clock in the morning patient daughter and and decision-maker Meli, with ICU charge nurse we explained them about the situation and that the next step will be a central line catheter to keep given the medications and pressors due to poor peripheral IV access, risks of procedure were explained, that the possibility of pneumothorax, hemothorax, bleeding, arrhythmias and even . Patient daughter and decision-maker Meli stated that they understand patient's current situation and overall poor health condition for which they decide not to proceed with central line catheters or invasive measures, but they will like to keep medications given medications and in case his heart stops, no chest compressions, no shocks, no lines and they want him to go peacefully for which they decide to switch the CODE STATUS to DNR. We will honor patient decision maker eMli wishes, POLST was signed as a witness with charge nurse. Patient discussed with my attending Dr Stan Mark MD PGY-3 Disclaimer: Despite multiple revisions, due to the dictation software being used, the document bellow may not be free of grammatical errors including phonetic/typographic errors. However, this does not deter from our commitment to providing health care in the patient's best interest in mind.
[2024-06-11] MEDS: SEVELAMER CARBONATE 800 MG TABLET PO ×2 (05:20→13:53)
[2024-06-11] MEDS: MIDODRINE 5 MG TABLET GT ×3 (05:20→21:58)
[2024-06-11] MEDS: CALCIUM ACETATE 667 MG TABLET GT ×3 (08:30→18:44)
[2024-06-11] MEDS: AMIODARONE HCL 200 MG TABLET GT ×2 (08:30→21:56)
[2024-06-11] MEDS: PANTOPRAZOLE INJ 40 MG VIAL IVP (08:30)
[2024-06-11] MEDS: BUMETANIDE INJ 0.25 MG/ML VIAL 4 ML 3 MG IVP (08:31)
--- NOTE | 2024-06-11 08:48 | PD.NEPHPROG ---
Documentation for date of: 06/11/24 Subjective Subjective Interval history: Interval history: The patient is a 73-year-old male with previous medical history of CVA, severe cognitive deficit, chronic PEG tube and tracheostomy placement, hyperlipidemia, diabetes mellitus, recurrent UTIs, depression, anxiety, upper extremity bilateral DVT who is a subacute facility resident. He was brought to the hospital due to constipation and abdominal distention for 5 days. Earlier he had similar problems and received enema, had a bowel movement and was transferred back to the facility. He had a manual disimpaction and copious amount of soft stools was evacuated by Dr. Cramer. Rectal tube was placed. Later in admission patient had developed fever, became tachycardic, tachypneic. Imaging showed bilateral pneumonia with continued to worsen, he was started on fluids. He was not able to maintain MAP more than 65, was started on Levophed. Also, EKG showed A-fib with RVR and was started on amiodarine drip. He continued to have multiple bowel movements. His labs showed hypokalemia and hypernatremia. His labs throughout admissionshowed uptrending WBC, hypernatremia, persistent hypokalemia and rapidly declining kidney functions. ICU team had a conversation with patient's family over regarding goals of care, patient's family decided to proceed with full treatment but not to proceed with chest compressions in case of cardiac arrest, patient is limited code. Yardage Control Clerk Dr. Reed was consulted due to ZACH and electrolyte abnormalities treaent and management. 06/05/2024: Patient was seen and examined by the bedside in the ICU. Saturating in the low 90s on FiO2 70%. Continues to require Levophed support. Labs showed sodium 151, potassium 2.9, chloride 113, bicarb 21.3, BUN 57, creatinine 3.2, EGFR 20, glucose 122, corrected calcium 8.4, AST 209, ALT 78, albumin 2.4. Due to hemodynamic instability and patient continuing to require Levophed, will hold off dialysis for today and will try to correct the electrolyte abnormalities and start free water flushes at 100 mL/h. Repeat renal panel showed sodium 150, potassium 3.5, chloride 113, BUN 58, creatinine 3.4, EGFR 18. 06/06/2024: Patient seen and examined at the bedside in the ICU. Today patient opens eyes to the verbal stimulation, but does not follow the objects or follow commands, continues to have rotatory nystagmus and left-sided gaze fixation. Yesterday patient's family decided to proceed with dialysis, dialysis treatment was ended early due to catheter not functioning, after attempting a bowel flush both ports remains sluggish. Dialysis session was stopped. Blood in the arterial line returned but blood and the venous line clotted was unable to return. CBC stat showed hemoglobin 7.3, hemoglobin earlier this day was 8.0. Today patient had a repeat dialysis session, 1 L of fluid was removed. A.m. labs showed hemoglobin 7.4, hematocrit 21.2, platelets 45, INR 1.4, fibrinogen 515, D-dimer more than 3820. Sodium 143, potassium 3.0, BUN 39, creatinine 2.1, lactic acid 3.4. 06/07/2024: Patient seen and examined at bedside in ICU, unable to tolerate dialysis, patient was given IV albumin, blood pressure does not tolerate dialysis treatment. Patient was able to complete dialysis yesterday, had about 804 mL removed, was given 1 unit of IV albumin. Patient's labs reviewed, show WBC 14.2, RBC 2.27, hemoglobin 6.6, hematocrit 18.7, platelet count 20,000, sodium 141, potassium 3.5, bicarb 19.7, BUN 54, creatinine 3.2, GFR 20, total bilirubin 1.7 AST 167 ALT 99, alk phos 188. Patient has poor prognosis, is unable to tolerate dialysis, recommended ICU team to discuss goals of care with family. 06/08/2024: Patient seen and examined at bedside in ICU. Yesterday was not able to unable to tolerate dialysis. Labs show WBC 17.9, hemoglobin 8.4, platelets 17, sodium 138, potassium 2.2, BUN 66, creatinine 3.4, EGFR 18. Patient is not a candidate for a dialysis due hemodynamic instability and developing DIC. Will continue to monitor, patient's prognosis remains poor. 06/09/2024 patient currently seen in ICU. Remains on the ventilator. Labs reviewed. unable to do dialysis due to hemodynamic instability, platelet count of 17,000 and extremely thick blood which is clotting of the dialyzer's. Cannot do heparin drip due to thrombocytopenia. Suspect patient in DIC. Prognosis remains poor. Plan of care discussed with Dr. Garland and ICU team. 06/11/2024 patient currently seen in ICU. Remains on ventilator, nonresponsive. Urine output very minimal. Unfortunately cannot do dialysis due to hemodynamic instability and clotting of dialyzer's. Still remains in DIC/thrombocytopenia. Labs, medications have been reviewed. Spoke to Dr. Garland. Dialysis catheter removed. Goals of care to be discussed with family. Prognosis remains poor. Review of Systems Review of Systems ROS Unobtainable: unobtainable due to mental status and unobtainable due to medical condition Exam Vital Signs Temp Pulse Resp BP Pulse Ox O2 Del Method O2 Flow Rate 37.1 C 82 28 H 140/59 H 94 L Mechanical Ventilation 90 06/11/24 04:00 06/11/24 08:31 06/11/24 07:15 06/11/24 08:31 06/11/24 07:15 06/09/24 04:00 06/07/24 17:00 FiO2 80 06/11/24 06:49 Narrative Exam Gen: Chronically ill-appearing elderly male. On ventilator HEENT: Left sided gaze fixation with rotatory nystagmus. CVS: normal S1 and S2. RRR. No M/R/G. Resp: CTA B/L. No rhonchi, rales, crackles or wheezing. Abd: soft, non-tender, non-distended. BS decreased. G-tube site unremarkable. MSK: 2+ lower extremity edema. Scrotal anasarca. Bilateral feet with cyanosis. The left earlobe seems to have some cyanosis. Neuro: Unresponsive Objective Labs 06/11/24 08:25 06/11/24 08:25 Labs: Laboratory Results - last 24 hr 06/07/24 06/10/24 09:00 14:28 PT 13.6 H INR 1.3 APTT 43.9 H Fibrinogen 386 H Lactate Dehydrogenase 496 H Crossmatch See Detail ABG Interpretation ABG results: 05/31/24 05/31/24 05/31/24 09:33 14:33 16:21 ABG pH 7.25 L 7.18 L* 7.30 L D ABG pCO2 68 H 78 H* D 57 H D ABG pO2 88 124 H D 69 L D ABG HCO3 30 H 29 H 28 H ABG O2 Saturation 96 99 H 94 ABG Base Excess 2 -1 1 VBG pH VBG pCO2 VBG pO2 VBG Base Excess 06/01/24 06/02/24 06/04/24 07:51 18:15 16:07 ABG pH 7.49 H D 7.47 H ABG pCO2 37 D 44 ABG pO2 49 L* D 48 L* ABG HCO3 28 H 32 H ABG O2 Saturation 89 L 86 L ABG Base Excess 5 H 7 H VBG pH 7.45 VBG pCO2 31 L VBG pO2 64 H VBG Base Excess -2 06/06/24 06/07/24 10:24 05:12 ABG pH 7.30 L ABG pCO2 47 ABG pO2 56 L* ABG HCO3 23 ABG O2 Saturation 83 L ABG Base Excess -3 VBG pH 7.35 VBG pCO2 46 D VBG pO2 52 VBG Base Excess 0 Assessment & Plan Assessment and plan (1) Fecal impaction: Status: Acute Additional Assessment & Plan Additional Plan: The patient is a 73-year-old male with previous medical history of CVA, severe cognitive deficit, chronic PEG tube and tracheostomy placement, hyperlipidemia, diabetes mellitus, recurrent UTIs, depression, anxiety, upper extremity bilateral DVT who is a subacute facility resident. He was brought to the hospital due to constipation and abdominal distention for 5 days. He also developed pneumonia and acute on chronic respiratory failure. His labs showed hypokalemia and hypernatremia. His labs throughout admissionshowed uptrending WBC, hypernatremia, persistent hypokalemia and rapidly declining kidney functions. Yardage Control Clerk Dr. Reed was consulted due to ZACH and electrolyte abnormalities #ZACH - ATN #Hypokalemia #Hypernatremia, resolved Patient currently in ATN in the setting of septic shock. Patient unable to tolerate dialysis, hypotensive during treatment. Clotted dialyzer. -Recommended ICU team to discuss goals of care with family due to worsening patient's condition and inability to tolerate dialysis. Prognosis remains poor. Plan of care discussed with Dr. Garland ?Replete electrolytes as necessary ?Monitor daily CMP ?Avoid nephrotoxic agents ?Renally dose medications #Acute encephalopathy #CVA with residual deficits #New onset of A-fib #Shock #Acute on chronic hypoxic respiratory failure #ARDS #Severe bilateral pneumonia #Large bowel obstruction improving #Hypokalemia #Leukocytosis #Normocytic anemia #Bacterial pneumonia #Muscle atrophy - management as per primary Plan of care discussed with Dr. Garland and ICU team. Prognosis remains guarded.
[2024-06-11 09:01] LABS: Basophils % (Auto) 0 % (0-2.5); Eosinophils % (Auto) 0 % (0-10); Immature Granulocytes % (Auto) 5 % (0-0); Immature Granulocytes Auto 0.87 Thou/mm3 (0.00-0.00); Lymphocytes # (Auto) 0.6 Thou/mm3 (1.0-4.8); Lymphocytes % (Auto) 3 % (10-50); Mean Corpuscular HGB Conc 33.8 g/dl (31.0-37.0); Mean Corpuscular Hemoglobin 28.4 pg (25.0-35.0); Mean Corpuscular Volume 84 fL (80-100); Monocytes # (Auto) 1.2 Thou/mm3 (0.0-0.8); Monocytes % (Auto) 7 % (0-12); Neutrophils # (Auto) 15.4 Thou/mm3 (1.8-7.7); Neutrophils % (Auto) 85 % (37-80); Nucleated Red Blood Cell # 1.23 Thou/mm3 (0.00-0.00); Nucleated Red Blood Cell % 7 /100 WBC (0); RDW Standard Deviation 51.3 fL (35.1-43.9); Red Blood Count 2.32 Miln/mm3 (4.50-5.90); White Blood Count 18.2 Thou/mm3 (3.8-10.6)
[2024-06-11 09:05] LABS: Hematocrit 19.5 % (41.0-53.0); Hemoglobin 6.6 g/dL (13.5-16.0)
[2024-06-11 09:06] LABS: Platelet Count 16 Thou/mm3 (140-440)
[2024-06-11] MEDS: BUMETANIDE INJ 20 MG in CONTAINER,EMPTY 50 ML 1 BAG 4 MG IV (09:20)
[2024-06-11 09:35] LABS: Alanine Aminotransferase 47 U/L (10-49); Albumin, Serum 2.3 gm/dL (3.4-4.8); Albumin/Globulin Ratio 1.2 (1.2-2.2); Alkaline Phosphatase 185 U/L (46-116); Anion Gap 11 (7-16); Aspartate Amino Transferase 36 U/L (0-34); BUN/Creatinine Ratio 21 Ratio (12-20); Blood Urea Nitrogen 85 mg/dL (9-23); Calcium 7.5 mg/dL (8.3-10.6); Calcium (Corrected) 8.9 mg/dL (8.5-10.1); Carbon Dioxide 22.8 mMol/L (20.0-31.0); Chloride 96 mMol/L (98-107); Creatinine (Component) 4.1 mg/dL (0.6-1.3); Estimated Creatinine Clearance 13.4 mL/min (>60); Glucose 118 mg/dL (74-106); Osmolality,Calculated 287 (275-295); Phosphorous 6.3 mg/dL (2.4-5.1); Potassium 3.5 mMol/L (3.4-5.1); Sodium 130 mMol/L (136-145); Total Protein 4.3 gm/dL (5.7-8.2); eGFR 15 See Note
[2024-06-11 09:48] LABS: Slide Review Platelets confirmed
[2024-06-11 10:46] LABS: Path Review Blood Smear Sent to Pathologist
[2024-06-11] MEDS: INSULIN HUM REGULAR 1 UNIT/0.01 ML (PER UNIT) SC (13:01)
--- NOTE | 2024-06-11 13:22 | PC.SS ---
Update: Code status changed to DNR. POLST form has been completed. Patient is Trach/PEG. Patient on contact precautions.
[2024-06-11] MEDS: METOCLOPRAMIDE INJ 5 MG/ML VIAL 2 ML IVP ×2 (13:54→18:45)
[2024-06-11] MEDS: POTASSIUM CHLORIDE 10% 20 MEQ/15 ML UDC GT (13:54)
--- NOTE | 2024-06-11 14:04 | PD.IMPROG ---
Documentation for date of: 06/11/24 Subjective Subjective Interval history: On enteral feeding Gastric residue is an issue Added Reglan Exam Vital Signs Temp Pulse Resp BP Pulse Ox O2 Del Method O2 Flow Rate 98.9 F 78 28 H 111/53 L 78 L Mechanical Ventilation 90 06/11/24 12:00 06/11/24 13:53 06/11/24 13:31 06/11/24 13:53 06/11/24 13:31 06/09/24 04:00 06/07/24 17:00 FiO2 80 06/11/24 12:00 Objective Labs 06/11/24 08:25 06/11/24 08:25 Labs: Laboratory Results - last 24 hr 06/10/24 06/11/24 06/11/24 14:28 08:25 09:45 WBC 18.2 H RBC 2.32 L Hgb 6.6 L* D Hct 19.5 L* MCV 84 MCH 28.4 MCHC 33.8 RDW Std Deviation 51.3 H Plt Count 16 L* D Neut % (Auto) 85 H Lymph % (Auto) 3 L [place] % (Auto) 7 Eos % (Auto) 0 Baso % (Auto) 0 Neut # (Auto) 15.4 H Lymph # (Auto) 0.6 L [place] # (Auto) 1.2 H Eos # (Auto) 0.0 Baso # (Auto) 0.0 Immature Gran # (Auto) 0.87 H Absolute Nucleated RBC 1.23 H Immature Gran % 5 H Nucleated RBC % 7 H Smear Path Review Sent to Pathologist PT 13.6 H INR 1.3 APTT 43.9 H Fibrinogen 386 H Sodium 130 L Potassium 3.5 Chloride 96 L Carbon Dioxide 22.8 Anion Gap 11 BUN 85 H Creatinine 4.1 H* Estim Creat Clear Calc 13.4 L eGFR 15 L BUN/Creatinine Ratio 21 H Glucose 118 H Calculated Osmolality 287 Calcium 7.5 L Corrected Calcium 8.9 Phosphorus 6.3 H Magnesium 2.0 Total Bilirubin 1.0 AST 36 H ALT 47 Alkaline Phosphatase 185 H D Lactate Dehydrogenase 496 H Total Protein 4.3 L Albumin 2.3 L Globulin 2.0 L Albumin/Globulin Ratio 1.2 Misc Test Result Platelets confirmed Blood Type O Positive Antibody Screen NEGATIVE Crossmatch See Detail Blood Bank Wristband ID Yes Blood Bank Comment PLATP Ready Impressions Impression: # Failure to thrive # Gastric residue is an issue Add Reglan 5 mg IV push Q6 ABG Interpretation ABG results: 05/31/24 05/31/24 05/31/24 09:33 14:33 16:21 ABG pH 7.25 L 7.18 L* 7.30 L D ABG pCO2 68 H 78 H* D 57 H D ABG pO2 88 124 H D 69 L D ABG HCO3 30 H 29 H 28 H ABG O2 Saturation 96 99 H 94 ABG Base Excess 2 -1 1 VBG pH VBG pCO2 VBG pO2 VBG Base Excess 06/01/24 06/02/24 06/04/24 07:51 18:15 16:07 ABG pH 7.49 H D 7.47 H ABG pCO2 37 D 44 ABG pO2 49 L* D 48 L* ABG HCO3 28 H 32 H ABG O2 Saturation 89 L 86 L ABG Base Excess 5 H 7 H VBG pH 7.45 VBG pCO2 31 L VBG pO2 64 H VBG Base Excess -2 06/06/24 06/07/24 10:24 05:12 ABG pH 7.30 L ABG pCO2 47 ABG pO2 56 L* ABG HCO3 23 ABG O2 Saturation 83 L ABG Base Excess -3 VBG pH 7.35 VBG pCO2 46 D VBG pO2 52 VBG Base Excess 0 Assessment & Plan A&P Narrative 73-year-old male with past medical history of 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 1. A-fib with RVR, new onset 2. Hypokalemia ?Patient developed A-fib with RVR on 06/02/2024 ?Initial EKG showed on admission sinus tachycardia. ?Repeat EKG on 05/31/2024 that showed sinus rhythm ?EKG on 06/02/2024 showed A-fib with RVR and at this time patient's potassium was 2.9. ?Patient is currently DNR/DNI as per family's wishes ? Patient' family did not want any cardioversion at this time. Plan: ?Continue amiodarone drip for now and add amiodarone 200 p.o BID ?Recommend start patient on Eliquis 5 mg twice daily ? Recommend to keep potassium magnesium above 4 and 2 respectively to avoid any further arrhythmias ?Recommend primary care team to have goals of care discussion 06/10/2024: Patient is on mechanical ventilation at the present point of time. Family again changed his status to limited code and wanted to Patient continues to be in A-fib overnight Continue amiodarone for now. Keep potassium greater than 4 and magnesium greater than 2.0 at all times. Unable to do dialysis as per nephrology and primary critical care team as well as nephrology team did discuss goals of care with the family but the patient is still continues to be a limited code with resuscitation except for chest compression. Patient's platelets are also at 17,000. no heprin drip for now Overall patient has multiorgan dysfunction and deteriorating clinical condition over the last couple of days. At the request of the critical care team I did also speak to the son Mr. Muniz for almost 20 to 30 minutes to update the patient about the workup done till now, the treatment as well as the prognosis for the patient in detail. Discussed regarding the goals of care including comfort care in detail and answered all questions to their satisfaction. Son informed me that they will come back with their entire family tomorrow and will let us know their decision. Patient is on pressors and sedation 3. Acute on chronic hypoxic respiratory failure 4. Bilateral community-acquired pneumonia versus hospital-acquired pneumonia ? Continue management as per primary care team 5. Large bowel obstruction ?Continue management as per primary care team 6. CVA with residual deficits 7. Chronic PEG tube and tracheostomy ?Continue current management per primary care team 8. DM2 ? Continue current management as per primary care team 9. Bilateral upper extremity DVTs ? Continue current management as per primary care team 10. Anxiety 11. Depression ? Continue current management as per primary care team 12. Recurrent UTIs ? Continue current management as per primary care team There is a high probability of sudden, clinically significant or life threatening deterioration in the patient condition which required the highest level of physician preparedness to intervene urgently. I have personally spent total of 65 minutes of critical care time yesterday, exclusive of time spent on any procedures, in evaluation and management of this critically ill patient. Management of rest of the medical conditions as per primary team and other consultants. Thank you for the consult and allowing me to participate in the care of the patient. Cardiology will continue to follow. Kit Ho M.D. Interventional Cardiology Time Spent With Patient Time: Total time spent is greater than 50% in coordination of care (as documented) at patient's floor/unit and/or counseling patient:
[2024-06-11] MEDS: Norepinephrine/D5W 8mg/250ml 8 MG/250 ML BAG 22.344 MG IV (15:54)
--- NOTE | 2024-06-11 16:39 | ESPR_ITS ---
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 Patient recently came to the ED on 05/24/2024 with similar complaints and received enema following which patient had a bowel movement and transferred back to the facility. Later patient was still found to have constipation for which Dr. Durant was consulted and patient received different bowel regimens and GoLytely with no much effect on constipation. As the patient is having progressive severe abdominal distention with constipation despite bowel regimens and GoLytely he was brought to the hospital today. No history of fever, vomiting. Dr. Durant was consulted and he tried to manually disimpact the stools but unsuccessful. Later Dr Cramer was consulted. 06/08/2024: Patient seen and examined at bedside. Spoke with dye automation operator who reiterated patient is not to a candidate for dialysis. Sedation tapered off. Patient had episode of hypotension and respiratory distress with hypoxia, managed emergent bronchoscopy with lavage of bilateral lungs and with vent setting alterations: Tidal volume 400, rate 28, PEEP 12, FiO2 100%. Will continue to titrate FiO2 down as tolerated, maintaining SpO2 88-92% we will continue to titrate pressors as tolerated. Chest x-ray showed increased fluid in lungs. Patient continues to produce no urine. Worsening cyanosis of distal extremities. Platelet count 17, platelets ordered. 06/09/2024: The patient was examined at the bedside this morning. He continues to be in respiratory distress, with RR 30-35. Blood draws for labs were attempted, but as the blood has been thick in consistency, multiple attempts were failed. Pathologist Assistant reported that the patient is not a candidate for hemodialysis as the blood is too thick to be out of the hemodialysis catheter and he cannot be given heparin as platelet count was 17 yesterday. Goals of care discussion was done with the patient's and son, who reported that they will touch base with all the family members and decide regarding proceeding further. We will attempt again to withdrawal blood samples for labs through hemodialysis catheter, and plan his treatment accordingly. After blood draw, we will remove his hemodialysis catheter. 06/10/2024: The patient was examined at the bedside this morning. He continues to be in respiratory distress, RR 30-35, saturating greater than 88% on FiO2 70%. He continues to be on Levophed drip at 0.21. Blood works were done by withdrawing the blood from right femoral hemodialysis catheter. Physical examination was significant for blisters of size measuring up to 2 into 3 cm on left lower extremity, and bluish discoloration of bilateral lower extremity distal half of bilateral foot. Peripheral pulses were very minimally palpable, and the patient is not a candidate for any surgical procedure given the platelet count of 18. Medicine labs are significant for white count trending down to 19.7, hemoglobin 8.6, platelet 28, PT 13.6, INR 1.3, PTT 43.9, and fibrinogen 386. Chemistry revealed sodium 132, potassium 3.3, was repleted with 20 mEq of oral KCl, BUN 81, creatinine 4.0, blood sugar 148, phosphorus 5.5 and we will continue with calcium acetate and sevelamer. Liver enzymes trending down. We will continue with 3 mg IV Bumex twice daily as patient has been bringing out some urine, approximately 500 cc in the entire daytime. Updates were given to the family members. We removed right femoral hemodialysis catheter as the patient is not a candidate for hemodialysis at this point, and it would only lead to further complications. 06/11/24: The patient was examined and evaluated at the bedside this morning. Overnight, it was difficult to get access to PIV lines, and family members were called and Goal of care discussion was done. Patient decision maker Meli wished to proceed with DNR/DNI with no aggressive intervention, POLST was signed as a witness with charge nurse. The patient was desaturating to 70s multiple times, and was requiring ventilation through Ambu bag. Multiple suctioning was required before it would improve oxygen saturation. Labs were significant for white count of 18.2, hemoglobin 6.6 and was ordered 1 unit of PRBC, platelet count 16 and 1 unit of platelet was ordered. Potassium was 3.5 and 20 mEq of oral KCl was given via PEG tube. The patient was bringing out some urine, and was started on Bumex drip 1 mg/h. As the phosphorus was 6.3 we increased the dose of sevelamer carbonate to 1600 Mg p.o. 3 times daily. Exam Vital Signs Temp Pulse Resp BP Pulse Ox O2 Del Method O2 Flow Rate 98.9 F 85 26 H 84/41 L 89 L Mechanical Ventilation 90 06/11/24 12:00 06/11/24 15:54 06/11/24 15:00 06/11/24 15:54 06/11/24 15:00 06/09/24 04:00 06/07/24 17:00 FiO2 70 06/11/24 14:05 Narrative Exam PE: Gen: Alert, poorly responsive. Tracheostomy. HEENT: NCAT, anicteric conjunctivae. Dry mucous membranes. CVS: No M/R/G. Afib Resp: Coarse lung sounds. Rhonchi and wheezing all lung ansari. Abd: Abdomen distended, soft. PEG tube. MSK: Good ROM in BUE & BLE. Bilateral lower and upper extremity 4+edema with anasarca. Edematous scrotum. Left and right foot cyanosis, progressing up to distal half of BL foot, Peripheral pulses very much feeble on dorsal pedis and posterior femoral. Neuro: CN II-XII grossly intact. Baseline nonverbal. Sometimes tracks sounds. Objective Labs 06/18/24 06:57 06/18/24 06:57 Labs: Laboratory Results - last 24 hr 06/11/24 06/11/24 08:25 09:45 WBC 18.2 H RBC 2.32 L Hgb 6.6 L* D Hct 19.5 L* MCV 84 MCH 28.4 MCHC 33.8 RDW Std Deviation 51.3 H Plt Count 16 L* D Neut % (Auto) 85 H Lymph % (Auto) 3 L Elk % (Auto) 7 Eos % (Auto) 0 Baso % (Auto) 0 Neut # (Auto) 15.4 H Lymph # (Auto) 0.6 L Elk # (Auto) 1.2 H Eos # (Auto) 0.0 Baso # (Auto) 0.0 Immature Gran # (Auto) 0.87 H Absolute Nucleated RBC 1.23 H Immature Gran % 5 H Nucleated RBC % 7 H Smear Path Review Sent to Pathologist Sodium 130 L Potassium 3.5 Chloride 96 L Carbon Dioxide 22.8 Anion Gap 11 BUN 85 H Creatinine 4.1 H* Estim Creat Clear Calc 13.4 L eGFR 15 L BUN/Creatinine Ratio 21 H Glucose 118 H Calculated Osmolality 287 Calcium 7.5 L Corrected Calcium 8.9 Phosphorus 6.3 H Magnesium 2.0 Total Bilirubin 1.0 AST 36 H ALT 47 Alkaline Phosphatase 185 H D Total Protein 4.3 L Albumin 2.3 L Globulin 2.0 L Albumin/Globulin Ratio 1.2 Misc Test Result Platelets confirmed Blood Type O Positive Antibody Screen NEGATIVE Crossmatch See Detail Blood Bank Wristband ID Yes Blood Bank Comment PLATP Ready ABG Interpretation ABG results: 05/31/24 05/31/24 05/31/24 09:33 14:33 16:21 ABG pH 7.25 L 7.18 L* 7.30 L D ABG pCO2 68 H 78 H* D 57 H D ABG pO2 88 124 H D 69 L D ABG HCO3 30 H 29 H 28 H ABG O2 Saturation 96 99 H 94 ABG Base Excess 2 -1 1 VBG pH VBG pCO2 VBG pO2 VBG Base Excess 06/01/24 06/02/24 06/04/24 07:51 18:15 16:07 ABG pH 7.49 H D 7.47 H ABG pCO2 37 D 44 ABG pO2 49 L* D 48 L* ABG HCO3 28 H 32 H ABG O2 Saturation 89 L 86 L ABG Base Excess 5 H 7 H VBG pH 7.45 VBG pCO2 31 L VBG pO2 64 H VBG Base Excess -2 06/06/24 06/07/24 10:24 05:12 ABG pH 7.30 L ABG pCO2 47 ABG pO2 56 L* ABG HCO3 23 ABG O2 Saturation 83 L ABG Base Excess -3 VBG pH 7.35 VBG pCO2 46 D VBG pO2 52 VBG Base Excess 0 Quality Measures Quality Measures VTE prophylaxis Advance care planning discussed with:: child Assessment & Plan Assessment Current Active Medications: Generic Name Dose Route Start Last Admin Trade Name Freq PRN Reason Stop Dose Admin Acetaminophen 650 mg 06/04/24 15:09 06/04/24 16:40 Acetaminophen Lindsey 325 Mg/10 Ml Udc GT 07/04/24 15:08 650 mg Q6HR PRN Administration Pain Or Fever > 100.4 Albuterol/Ipratropium 3 ml 06/04/24 15:33 Albuterol/Ipratropium (Duoneb) Rt Lindsey 3 Ml Nebu INH 07/04/24 15:32 Q2HR PRN SHORTNESS OF BREATH OR WHEEZE Amiodarone HCl 200 mg 06/05/24 21:00 06/11/24 08:30 Amiodarone Hcl 200 Mg Tablet GT 07/05/24 20:59 200 mg BID XOCHITL Administration Artificial Tears 0 drop 06/08/24 19:44 06/08/24 20:14 Artificial Tears 225 Drop/15 Ml Btl BOTH EYES 07/08/24 19:43 1 drop PRN PRN Administration TO KEEP EYES MOIST Calcium Acetate 667 mg 06/08/24 08:45 06/11/24 13:01 Calcium Acetate 667 Mg Tablet GT 07/04/24 18:44 667 mg TIDWM XOCHITL Administration Dextrose 25 ml 06/04/24 15:32 Dextrose 50%-Water Inj 50 Ml Syringe IV 07/04/24 15:31 Q15MIN PRN BG 50-70 responsive npo pt Dextrose 50 ml 06/04/24 15:32 Dextrose 50%-Water Inj 50 Ml Syringe IV 07/04/24 15:31 Q15MIN PRN BG <50 OR BG <70 & pt unresponsive Heparin Sodium (Porcine) 5,000 unit 06/04/24 22:00 06/06/24 06:18 Heparin Sod Inj 5000 Unit/Ml Vial SC 06/18/24 21:59 5,000 unit Q8HR XOCHITL Administration Heparin Sodium (Porcine) 2,200 unit 06/05/24 17:03 06/07/24 08:55 Heparin Sod Inj 1000 Unit/Ml Vial 10 Ml INDWELLCAT 06/19/24 17:02 2,200 unit PRN PRN Administration DIALYSIS Norepinephrine/Dextrose 8 mg in 250 mls @ 6.572 mls/hr 06/03/24 11:37 06/11/24 15:54 Levophed In D5w 8mg/250ml IV 07/03/24 11:36 0 mcg/kg/min .Q24H PRN 0.17 mls/hr PER PROTOCOL Administration Protocol 0.05 MCG/KG/MIN Levofloxacin/Dextrose 500 mg in 100 mls @ 100 mls/hr 06/06/24 18:30 06/10/24 17:51 Levaquin Ivpb IV 06/13/24 18:29 100 mls/hr Q48H XOCHITL Administration Albumin Human 25 gm in 100 mls @ 100 mls/min 06/05/24 17:05 06/07/24 08:32 Albuminar-25 Ivpb IV Infused PRN PRN Infusion DIALYSIS Propofol 1,000 mg in 100 mls @ 2.025 mls/hr 06/06/24 08:55 06/08/24 13:28 Diprivan Ivpb IV 07/06/24 08:54 0 mcg/kg/min .Q24H PRN 0 mls/hr PER PROTOCOL Titration Protocol 5 MCG/KG/MIN Bumetanide 20 mg/ IV 80 mls @ 4 mls/hr 06/11/24 09:11 06/11/24 09:20 Miscellaneous Supplies IV 06/12/24 05:10 1 mg/hr .Q20H XOCHITL 4 mls/hr Administration 1 MG/HR Magnesium Sulfate 2 gm in 50 mls @ 25 mls/hr 06/11/24 16:38 Magnesium Sulfate Ivpb IV 06/11/24 18:37 X1 ONE Insulin Human Regular 0 unit 06/04/24 18:00 06/11/24 13:01 Insulin Hum Regular 1 Unit/0.01 Ml (Per Unit) SC 07/04/24 17:59 1 unit Q6HR XOCHITL Administration Protocol Lactulose 20 gm 06/08/24 09:00 06/09/24 08:54 Lactulose Syrup 20 Gm/30 Ml Udc GT 07/04/24 21:59 Not Given QDAY XOCHITL Protocol Metoclopramide HCl 5 mg 06/11/24 13:15 06/11/24 13:54 Metoclopramide Inj 5 Mg/Ml Vial 2 Ml IVP 07/11/24 13:14 5 mg Q6HR XOCHITL Administration Protocol Midodrine 5 mg 06/09/24 14:00 06/11/24 13:53 Midodrine 5 Mg Tablet GT 07/09/24 13:59 5 mg TID XOCHITL Administration Pantoprazole Sodium 40 mg 06/04/24 15:30 06/11/24 08:30 Pantoprazole Inj 40 Mg Vial IVP 07/04/24 15:29 40 mg QDAY OXCHITL Administration Pharmacy Consult 1 each 06/04/24 18:24 Pharmacy Renal Dose Adjustment 1 Ea XX 07/04/24 18:23 PRN PRN CONSULT Sevelamer Carbonate 800 mg 06/10/24 07:45 06/11/24 13:53 Sevelamer Carbonate 800 Mg Tablet PO 07/10/24 07:44 800 mg TID XOCHITL Administration Plan 73-year-old male with 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 06/11/24: The patient was examined and evaluated at the bedside this morning. Overnight, it was difficult to get access to PIV lines, and family members were called and Goal of care discussion was done. Patient decision maker Meli wished to proceed with DNR/DNI with no aggressive intervention, POLST was signed as a witness with charge nurse. The patient was desaturating to 70s multiple times, and was requiring ventilation through Ambu bag. Multiple suctioning was required before it would improve oxygen saturation. Labs were significant for white count of 18.2, hemoglobin 6.6 and was ordered 1 unit of PRBC, platelet count 16 and 1 unit of platelet was ordered. Potassium was 3.5 and 20 mEq of oral KCl was given via PEG tube. The patient was bringing out some urine, and was started on Bumex drip 1 mg/h. As the phosphorus was 6.3 we increased the dose of sevelamer carbonate to 1600 Mg p.o. 3 times daily. Neuro: #Chronic encephalopathy #CVA with residual deficits Metabolic encephalopathy due to hypoxia Patient is nonverbal at baseline, per family at bedside he is normally somewhat interactive. Currently patient is responsive only to pain, opens eyes, does not track sounds. Patient became close to baseline, responds to loud sounds, does not follow commands or have purposeful movement. Patient became agitated during dialysis, sedated to maintain vent synchronicity. Patient no longer candidate for dialysis as the blood is too thick to pull out of veins, weaning off sedation. -Monitor CVS: #Septic shock 2/2 Acenetobacter baummani and enterobacter aerogenes pneumonia Patient started on levofloxacin based on previous cultures, dosed for acute kidney injury. -Close monitoring -Levophed, titrate as needed -Levofloxacin 750 mg IV x1, followed by Levofloxacin 500 mg IV q48h (Started 06/04) -Clindamycin 600mg IV q6h (started 06/07-06/11) -Follow-up blood cultures, has been negative for 48H #Bilateral LL PAD Physical exam revealed severe peripheral arterial disease with, minimal pulses felt at BL dorsalis pedis and posterior tibialis, with bluish discoloration of BL distal half of foot. -Patient is not a candidate for any surgical intervention due to DIC and not a candidate for antiplatelet as platelet count of 16, #Afib Patient developed afib with RVR prompting rapid response. Amio bolus given, drip completed. Worsening tachycardia during dialysis, resolved with 150mg bolus amiodorone x1. -amiodarone 200mg GT BID -telemonitoring Pulm: #Acute hypoxic respiratory failure #Aspiration pneumonia #ARDS Patient developed worsening hypoxia despite increasing FiO2 on the floors following massive aspiration. Chest x-ray shows significant bilateral pneumonia, more severe on the left side. Patient has significantly distended abdomen, present on lungs. ABG showed pH 7.18, pCO2 70, pO2 124. Vent settings changed to increase tidal volume and respiratory rate, repeat ABG showed pH 7.3, pCO2 57, pO2 69. Patient improved enough for downgrade to telemetry, was later upgraded back to ICU for worsening hypoxia, hypotension, afib with RVR. Patient continues to have high FiO2 requirements to maintain saturation. Tidal volume decreased from 450 to 380. After sedation discontinued, patient became hypoxic/hypertensive, initially managed with vent settings but required emergent bronchoscopy with lavage of bilateral lungs. Chest x-ray showed increasing fluid in lungs. -Maintain vent settings, wean down FiO2 as tolerated -Lung protective vent strategies -Duoneb as needed -Antibiotics as above GI: #Transaminitis DDx Medication effect vs. severe acute illness Patient has had mild transaminitis during hospital stay. Slightly uptrending, patient on levaquin and amiodarone. Timing does not match rise in LFTs, could be contributing factor. Downtrending -monitor #PEG tube Patient has chronic PEG tube. Feeds have been held due to large bowel obstruction, now resolved. -Tube feeds, 20ml/hr with 25ml/hr water flushes Renal: #ATN Patient developed ATN due to ischemia in setting of hypotension. Patient had left femoral tri-flow cath placed for dialysis. Patient had difficulty with dialysis. On third day, blood was too thick to properly dialyze. Patient deemed to unstable for furhter dialysis by dye automation operator. Family updated on patient status. Patient anuric. Bumex 3mg IV given x1 without urine output. Patient remains severely fluid overloaded. -Started on Bumex drip -Not suitable candidate for dialysis #Hypokalemia -Repleted with 20meq KCl -Monitor -Replete as needed #Hyperphosphetemia -calcium acetate TID and sevelamer increased to 1.6 g TID Endo: #DM Patient history -ISS Heme: #Thrombocytopenia due to DIC Patient has had mild thrombocytopenia, steadily worsening for several days. Recently downtrended to 47. No signs of thrombosis or hemorrhaging. DIC panel: PT 14.5, PTT 49, Fibrinogen 515, D-Dimer >3820. LDH elevated. Platelets down to 16 -Transfused with 1 Unit PRBC -Monitor -Treat underlying conditions -Replace platelets if <20k #Leukocytosis Likely due to infection and reactive to patient's worsening overall status. -downtrending -Monitor #Microcytic anemia Patient has chronic normocytic anemia, with multiple PRBC transfusion making it normocytic No signs of bleeding. -Monitor ID: #Sepsis Procal 8.19. Fevers. Patient received Vancomycin and Zosyn previously. Blood cultures grew MRSA, sputum cultures grew Acinetobacter baumannii/haemol. Will adjust antibiotic dosage for reduced creatinine clearance -Levofloxacin 750 mg IV x1, followed by Levofloxacin 500 mg IV q48h (Started 06/04) -Clindamycin 600mg IV q6h (started 06/07-06/11) -Tylenol as needed for fevers -contact precautions Skin/MSK: #Deep tissue injury Patient has deep tissue injury to right upper back. -bandaged #Stage two pressure ulcer Patient has stage 2 pressure ulcer to right buttock. -bandaged ICU Health maintenance: Mechanical ventilation: Yes Sedation:Yes Diet: Tube feeds via PEG DVT ppx: None GI ppx: Protonix Godinez: No IV lines: Peripheral IVs Central line: Femoral tri-flow- DC on 06/10 Arterial line: No Code status: Limited Code: No compressions The patient's management plan was discussed with my attending physician MD Alex Franz MD, PGY2 Attending Provider Attestation/Addendum Patient seen and examined with above resident, Alex Garcia MD. I agree with the findings, assessment, and plan of care as documented except for any differences below. Patient overnight with significant issues including access. Overnight resident, Dr. Mark, did reach out to the family and they did agree with avoidance of any aggressive intervention including no plans for placement of central access again. Patient's care will be limited given his continued deterioration and overwhelming number of comorbidities including renal failure for which she is not a candidate for hemodialysis and now peripheral vascular disease/distal limb ischemia in the setting of vasopressor and DIC. Patient with drop in hemoglobin, unit of PRBCs given today. Will hold off on additional platelets at this point. Remains a poor candidate for antiplatelet or anticoagulation. Will address multiple electrolyte abnormalities and started on Bumex drip to attempt to continue to address volume overload without ability to dialyze her ultrafiltrate. Patient continues to receive tube feeding. Evaluation continues to be difficult due to high pressures and hypoxia, compounded by his volume status. Complete course of Levaquin for known Acinetobacter pneumonia. Total critical care time: Personally spent 40 minutes for review of physiologic parameters, and directing plan of care throughout the day, coordination of care with other specialties. This is exclusive of time spent teaching housestaff or performing any separate billable procedures. Patient continues to require critical care services for septic shock secondary to Acinetobacter pneumonia and acute on chronic respiratory failure requiring mechanical ventilation. Patient remains at risk for further morbidity and high risk for mortality continue ongoing care and management only available in the intensive care unit.
[2024-06-11] MEDS: Magnesium Sulfate 2 GM Ivpb 2 GM/50 ML BAG IV (17:01)
[2024-06-11] MEDS: Ferrous Sulfate 300 MG/5 ML UDC PO (18:44)
[2024-06-11] MEDS: SEVELAMER CARBONATE 0.8 GM PACKET (NON-FORMULARY) 1.6 GM GT (18:54)
--- NOTE | 2024-06-11 23:37 | PC.NURSE ---
BLADDER SCAN DONE AT 2300, INDICATES THAT PT HAS A MAXIMUM OF 245ML IN BLADDER. PT REMAINS INCONTINENT OF URINE. MOST OF THE URINE APPEARS TO BE LEAKING AROUND THE CONDOM CATH
[2024-06-11] MEDS: Norepinephrine/D5W 8mg/250ml 8 MG/250 ML BAG 63.09 MG IV (23:55)
[2024-06-12] VITALS (109 sets, daily range): BP systolic 91–152; BP diastolic 49–83; PULSE 77–90; RESP 25–29; TEMP 36.1–36.7; O2SAT 88–100
[2024-06-12] MEDS: INSULIN HUM REGULAR 1 UNIT/0.01 ML (PER UNIT) SC ×3 (00:47→12:04)
[2024-06-12] MEDS: METOCLOPRAMIDE INJ 5 MG/ML VIAL 2 ML IVP ×4 (00:48→17:14)
[2024-06-12] MEDS: BUMETANIDE INJ 20 MG in CONTAINER,EMPTY 50 ML 1 BAG 4 MG IV (02:00)
[2024-06-12] MEDS: Norepinephrine/D5W 8mg/250ml 8 MG/250 ML BAG 39.431 MG IV ×3 (05:16→19:26)
[2024-06-12] MEDS: MIDODRINE 5 MG TABLET GT ×3 (05:48→21:16)
[2024-06-12] MEDS: PANTOPRAZOLE INJ 40 MG VIAL IVP (09:15)
[2024-06-12] MEDS: AMIODARONE HCL 200 MG TABLET GT ×2 (09:15→21:15)
[2024-06-12] MEDS: CALCIUM ACETATE 667 MG TABLET GT ×3 (09:15→17:14)
[2024-06-12] MEDS: Ferrous Sulfate 300 MG/5 ML UDC PO (09:15)
[2024-06-12] MEDS: SEVELAMER CARBONATE 0.8 GM PACKET (NON-FORMULARY) 1.6 GM GT ×3 (09:18→17:15)
--- NOTE | 2024-06-12 13:04 | PC.NURSE ---
0730 THIS MORNING PATIENT WAS GIVEN A BATH AND WITH ALL SHEETS AND CLOTHING CHANGED. DURING REPOSITIONING THE PATIENT THE PATIENTS OXYGEN DROPPED TO 60 PERCENT. PATIENT WAS BAGGED FOR 30 MINUTES UNTIL OXYGEN SATURATIONS CAME UP TO 92%. MD WAS NOTIFIED THAT THE PATIENT IS UNSTABLE TO TURN WITHOUT DE-SATURATING.
--- NOTE | 2024-06-12 14:43 | PC.SS ---
PARKING ENFORCEMENT OFFICER informed by ICU resident need to schedule family meeting with patient's adult children and spouse.
--- NOTE | 2024-06-12 14:43 | PC.SS ---
FLIGHT MANAGER contacted patient's daughter to discuss need for family meeting tomorrow. Patient's daughter informed FLIGHT MANAGER that she, brothers and mother will be present tomorrow at 12:00 pm. FLIGHT MANAGER informed police detective and ICU resident team.
--- NOTE | 2024-06-12 16:55 | PD.IMPROG ---
Documentation for date of: 06/12/24 Subjective Subjective Interval history: Enteral feeding only at 20 cc an hour Gastric residue remains a problem Exam Vital Signs Temp Pulse Resp BP Pulse Ox O2 Del Method O2 Flow Rate 97.3 F 81 28 H 108/64 98 Mechanical Ventilation 90 06/12/24 12:00 06/12/24 14:45 06/12/24 14:45 06/12/24 14:45 06/12/24 14:45 06/12/24 06:00 06/07/24 17:00 FiO2 80 06/12/24 14:12 Routine Respiratory Exam Comments: Mechanically ventilated through the tracheostomy Routine Abdominal Exam Comments: No drainage at the PEG site Objective Labs 06/11/24 08:25 06/11/24 08:25 Labs: Laboratory Results - last 24 hr 06/11/24 09:45 Blood Type O Positive Antibody Screen NEGATIVE Crossmatch See Detail Blood Bank Wristband ID Yes Blood Bank Comment PLATP Ready Impressions Impression: # Status postplacement of a PEG tube Continue to monitor enteral hyperalimentation Patient already on a regular diet to improve the gastric motility ABG Interpretation ABG results: 05/31/24 05/31/24 05/31/24 09:33 14:33 16:21 ABG pH 7.25 L 7.18 L* 7.30 L D ABG pCO2 68 H 78 H* D 57 H D ABG pO2 88 124 H D 69 L D ABG HCO3 30 H 29 H 28 H ABG O2 Saturation 96 99 H 94 ABG Base Excess 2 -1 1 VBG pH VBG pCO2 VBG pO2 VBG Base Excess 06/01/24 06/02/24 06/04/24 07:51 18:15 16:07 ABG pH 7.49 H D 7.47 H ABG pCO2 37 D 44 ABG pO2 49 L* D 48 L* ABG HCO3 28 H 32 H ABG O2 Saturation 89 L 86 L ABG Base Excess 5 H 7 H VBG pH 7.45 VBG pCO2 31 L VBG pO2 64 H VBG Base Excess -2 06/06/24 06/07/24 10:24 05:12 ABG pH 7.30 L ABG pCO2 47 ABG pO2 56 L* ABG HCO3 23 ABG O2 Saturation 83 L ABG Base Excess -3 VBG pH 7.35 VBG pCO2 46 D VBG pO2 52 VBG Base Excess 0 Assessment & Plan A&P Narrative 73-year-old male with past medical history of 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 1. A-fib with RVR, new onset 2. Hypokalemia ?Patient developed A-fib with RVR on 06/02/2024 ?Initial EKG showed on admission sinus tachycardia. ?Repeat EKG on 05/31/2024 that showed sinus rhythm ?EKG on 06/02/2024 showed A-fib with RVR and at this time patient's potassium was 2.9. ?Patient is currently DNR/DNI as per family's wishes ? Patient' family did not want any cardioversion at this time. Plan: ?Continue amiodarone drip for now and add amiodarone 200 p.o BID ?Recommend start patient on Eliquis 5 mg twice daily ? Recommend to keep potassium magnesium above 4 and 2 respectively to avoid any further arrhythmias ?Recommend primary care team to have goals of care discussion 06/10/2024: Patient is on mechanical ventilation at the present point of time. Family again changed his status to limited code and wanted to Patient continues to be in A-fib overnight Continue amiodarone for now. Keep potassium greater than 4 and magnesium greater than 2.0 at all times. Unable to do dialysis as per nephrology and primary critical care team as well as nephrology team did discuss goals of care with the family but the patient is still continues to be a limited code with resuscitation except for chest compression. Patient's platelets are also at 17,000. no heprin drip for now Overall patient has multiorgan dysfunction and deteriorating clinical condition over the last couple of days. At the request of the critical care team I did also speak to the son Mr. Muniz for almost 20 to 30 minutes to update the patient about the workup done till now, the treatment as well as the prognosis for the patient in detail. Discussed regarding the goals of care including comfort care in detail and answered all questions to their satisfaction. Son informed me that they will come back with their entire family tomorrow and will let us know their decision. Patient is on pressors and sedation 3. Acute on chronic hypoxic respiratory failure 4. Bilateral community-acquired pneumonia versus hospital-acquired pneumonia ? Continue management as per primary care team 5. Large bowel obstruction ?Continue management as per primary care team 6. CVA with residual deficits 7. Chronic PEG tube and tracheostomy ?Continue current management per primary care team 8. DM2 ? Continue current management as per primary care team 9. Bilateral upper extremity DVTs ? Continue current management as per primary care team 10. Anxiety 11. Depression ? Continue current management as per primary care team 12. Recurrent UTIs ? Continue current management as per primary care team There is a high probability of sudden, clinically significant or life threatening deterioration in the patient condition which required the highest level of physician preparedness to intervene urgently. I have personally spent total of 65 minutes of critical care time yesterday, exclusive of time spent on any procedures, in evaluation and management of this critically ill patient. Management of rest of the medical conditions as per primary team and other consultants. Thank you for the consult and allowing me to participate in the care of the patient. Cardiology will continue to follow. Kit Ho M.D. Interventional Cardiology Time Spent With Patient Time: Total time spent is greater than 50% in coordination of care (as documented) at patient's floor/unit and/or counseling patient:
[2024-06-12] MEDS: LEVOFLOXACIN/D5W 500 MG IVPB 500 MG/100 ML BAG 100 MG IV (17:30)
--- NOTE | 2024-06-12 17:41 | ESPR_ITS ---
Documentation for date of: 06/12/24 Subjective Subjective Interval history: Interval history: The patient is a 73-year-old male with previous medical history of CVA, severe cognitive deficit, chronic PEG tube and tracheostomy placement, hyperlipidemia, diabetes mellitus, recurrent UTIs, depression, anxiety, upper extremity bilateral DVT who is a subacute facility resident. He was brought to the hospital due to constipation and abdominal distention for 5 days. Earlier he had similar problems and received enema, had a bowel movement and was transferred back to the facility. He had a manual disimpaction and copious amount of soft stools was evacuated by Dr. Craemr. Rectal tube was placed. Later in admission patient had developed fever, became tachycardic, tachypneic. Imaging showed bilateral pneumonia with continued to worsen, he was started on fluids. He was not able to maintain MAP more than 65, was started on Levophed. Also, EKG showed A-fib with RVR and was started on amiodarine drip. He continued to have multiple bowel movements. His labs showed hypokalemia and hypernatremia. His labs throughout admissionshowed uptrending WBC, hypernatremia, persistent hypokalemia and rapidly declining kidney functions. ICU team had a conversation with patient's family over regarding goals of care, patient's family decided to proceed with full treatment but not to proceed with chest compressions in case of cardiac arrest, patient is limited code. Irrigation Service Technician Dr. Reed was consulted due to ZACH and electrolyte abnormalities treaent and management. 06/05/2024: Patient was seen and examined by the bedside in the ICU. Saturating in the low 90s on FiO2 70%. Continues to require Levophed support. Labs showed sodium 151, potassium 2.9, chloride 113, bicarb 21.3, BUN 57, creatinine 3.2, EGFR 20, glucose 122, corrected calcium 8.4, AST 209, ALT 78, albumin 2.4. Due to hemodynamic instability and patient continuing to require Levophed, will hold off dialysis for today and will try to correct the electrolyte abnormalities and start free water flushes at 100 mL/h. Repeat renal panel showed sodium 150, potassium 3.5, chloride 113, BUN 58, creatinine 3.4, EGFR 18. 06/06/2024: Patient seen and examined at the bedside in the ICU. Today patient opens eyes to the verbal stimulation, but does not follow the objects or follow commands, continues to have rotatory nystagmus and left-sided gaze fixation. Yesterday patient's family decided to proceed with dialysis, dialysis treatment was ended early due to catheter not functioning, after attempting a bowel flush both ports remains sluggish. Dialysis session was stopped. Blood in the arterial line returned but blood and the venous line clotted was unable to return. CBC stat showed hemoglobin 7.3, hemoglobin earlier this day was 8.0. Today patient had a repeat dialysis session, 1 L of fluid was removed. A.m. labs showed hemoglobin 7.4, hematocrit 21.2, platelets 45, INR 1.4, fibrinogen 515, D-dimer more than 3820. Sodium 143, potassium 3.0, BUN 39, creatinine 2.1, lactic acid 3.4. 06/07/2024: Patient seen and examined at bedside in ICU, unable to tolerate dialysis, patient was given IV albumin, blood pressure does not tolerate dialysis treatment. Patient was able to complete dialysis yesterday, had about 804 mL removed, was given 1 unit of IV albumin. Patient's labs reviewed, show WBC 14.2, RBC 2.27, hemoglobin 6.6, hematocrit 18.7, platelet count 20,000, sodium 141, potassium 3.5, bicarb 19.7, BUN 54, creatinine 3.2, GFR 20, total bilirubin 1.7 AST 167 ALT 99, alk phos 188. Patient has poor prognosis, is unable to tolerate dialysis, recommended ICU team to discuss goals of care with family. 06/08/2024: Patient seen and examined at bedside in ICU. Yesterday was not able to unable to tolerate dialysis. Labs show WBC 17.9, hemoglobin 8.4, platelets 17, sodium 138, potassium 2.2, BUN 66, creatinine 3.4, EGFR 18. Patient is not a candidate for a dialysis due hemodynamic instability and developing DIC. Will continue to monitor, patient's prognosis remains poor. 06/09/2024 patient currently seen in ICU. Remains on the ventilator. Labs reviewed. unable to do dialysis due to hemodynamic instability, platelet count of 17,000 and extremely thick blood which is clotting of the dialyzer's. Cannot do heparin drip due to thrombocytopenia. Suspect patient in DIC. Prognosis remains poor. Plan of care discussed with Dr. Garland and ICU team. 06/12/2024 patient currently seen in ICU. Remains on ventilator, nonresponsive. Urine output very minimal. Unfortunately cannot do dialysis due to hemodynamic instability and clotting of dialyzer's. Seems to be in DIC/thrombocytopenia. Labs, medications have been reviewed. Spoke to Dr. Garland. Goals of care to be discussed with family. Prognosis remains poor. Review of Systems Review of Systems ROS Unobtainable: unobtainable due to medical condition Narrative Review of Systems: s/p trach Exam Vital Signs Temp Pulse Resp BP Pulse Ox O2 Del Method O2 Flow Rate 36.7 C 81 25 H 124/60 97 Mechanical Ventilation 90 06/12/24 16:00 06/12/24 17:15 06/12/24 17:15 06/12/24 17:15 06/12/24 17:15 06/12/24 06:00 06/07/24 17:00 FiO2 80 06/12/24 16:00 Narrative Exam Gen: Chronically ill-appearing elderly male. On ventilator HEENT: Left sided gaze fixation with rotatory nystagmus. CVS: normal S1 and S2. RRR. No M/R/G. Resp: CTA B/L. No rhonchi, rales, crackles or wheezing. Abd: soft, non-tender, non-distended. BS decreased. G-tube site unremarkable. MSK: 2+ lower extremity edema. Scrotal anasarca. Bilateral feet with significant cyanosis. The left earlobe seems to have some cyanosis. Neuro: Unresponsive Objective Labs 06/11/24 08:25 06/11/24 08:25 Labs: Laboratory Results - last 24 hr 06/11/24 09:45 Blood Type O Positive Antibody Screen NEGATIVE Crossmatch See Detail Blood Bank Wristband ID Yes Blood Bank Comment PLATP Ready ABG Interpretation ABG results: 05/31/24 05/31/24 05/31/24 09:33 14:33 16:21 ABG pH 7.25 L 7.18 L* 7.30 L D ABG pCO2 68 H 78 H* D 57 H D ABG pO2 88 124 H D 69 L D ABG HCO3 30 H 29 H 28 H ABG O2 Saturation 96 99 H 94 ABG Base Excess 2 -1 1 VBG pH VBG pCO2 VBG pO2 VBG Base Excess 06/01/24 06/02/24 06/04/24 07:51 18:15 16:07 ABG pH 7.49 H D 7.47 H ABG pCO2 37 D 44 ABG pO2 49 L* D 48 L* ABG HCO3 28 H 32 H ABG O2 Saturation 89 L 86 L ABG Base Excess 5 H 7 H VBG pH 7.45 VBG pCO2 31 L VBG pO2 64 H VBG Base Excess -2 06/06/24 06/07/24 10:24 05:12 ABG pH 7.30 L ABG pCO2 47 ABG pO2 56 L* ABG HCO3 23 ABG O2 Saturation 83 L ABG Base Excess -3 VBG pH 7.35 VBG pCO2 46 D VBG pO2 52 VBG Base Excess 0 Assessment & Plan Assessment and plan (1) Fecal impaction: Status: Acute Additional Assessment & Plan Additional Plan: The patient is a 73-year-old male with previous medical history of CVA, severe cognitive deficit, chronic PEG tube and tracheostomy placement, hyperlipidemia, diabetes mellitus, recurrent UTIs, depression, anxiety, upper extremity bilateral DVT who is a subacute facility resident. He was brought to the hospital due to constipation and abdominal distention for 5 days. He also developed pneumonia and acute on chronic respiratory failure. His labs showed hypokalemia and hypernatremia. His labs throughout admissionshowed uptrending WBC, hypernatremia, persistent hypokalemia and rapidly declining kidney functions. Irrigation Service Technician Dr. Reed was consulted due to ZACH and electrolyte abnormalities #ZACH - ATN #Hypokalemia #Hypernatremia, resolved Patient currently in ATN in the setting of septic shock. Patient unable to tolerate dialysis, hypotensive during treatment. Clotted dialyzer. -Recommended ICU team to discuss goals of care with family due to worsening patient's condition and inability to tolerate dialysis. Prognosis remains poor. Plan of care discussed with Dr. Garland ?Replete electrolytes as necessary ?Monitor daily CMP ?Avoid nephrotoxic agents ?Renally dose medications #Acute encephalopathy #CVA with residual deficits #New onset of A-fib #Shock #Acute on chronic hypoxic respiratory failure #ARDS #Severe bilateral pneumonia #Large bowel obstruction improving #Hypokalemia #Leukocytosis #Normocytic anemia #Bacterial pneumonia #Muscle atrophy - management as per primary Plan of care discussed with Dr. Garland and ICU team. Prognosis remains guarded.
--- NOTE | 2024-06-12 18:51 | ESPR_ITS ---
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 Patient recently came to the ED on 05/24/2024 with similar complaints and received enema following which patient had a bowel movement and transferred back to the facility. Later patient was still found to have constipation for which Dr. Durant was consulted and patient received different bowel regimens and GoLytely with no much effect on constipation. As the patient is having progressive severe abdominal distention with constipation despite bowel regimens and GoLytely he was brought to the hospital today. No history of fever, vomiting. Dr. Durant was consulted and he tried to manually disimpact the stools but unsuccessful. Later Dr Cramer was consulted. 06/10/2024: The patient was examined at the bedside this morning. He continues to be in respiratory distress, RR 30-35, saturating greater than 88% on FiO2 70%. He continues to be on Levophed drip at 0.21. Blood works were done by withdrawing the blood from right femoral hemodialysis catheter. Physical examination was significant for blisters of size measuring up to 2 into 3 cm on left lower extremity, and bluish discoloration of bilateral lower extremity distal half of bilateral foot. Peripheral pulses were very minimally palpable, and the patient is not a candidate for any surgical procedure given the platelet count of 18. Medicine labs are significant for white count trending down to 19.7, hemoglobin 8.6, platelet 28, PT 13.6, INR 1.3, PTT 43.9, and fibrinogen 386. Chemistry revealed sodium 132, potassium 3.3, was repleted with 20 mEq of oral KCl, BUN 81, creatinine 4.0, blood sugar 148, phosphorus 5.5 and we will continue with calcium acetate and sevelamer. Liver enzymes trending down. We will continue with 3 mg IV Bumex twice daily as patient has been bringing out some urine, approximately 500 cc in the entire daytime. Updates were given to the family members. We removed right femoral hemodialysis catheter as the patient is not a candidate for hemodialysis at this point, and it would only lead to further complications. 06/11/24: The patient was examined and evaluated at the bedside this morning. Overnight, it was difficult to get access to PIV lines, and family members were called and Goal of care discussion was done. Patient decision maker Meli wished to proceed with DNR/DNI with no aggressive intervention, POLST was signed as a witness with charge nurse. The patient was desaturating to 70s multiple times, and was requiring ventilation through Ambu bag. Multiple suctioning was required before it would improve oxygen saturation. Labs were significant for white count of 18.2, hemoglobin 6.6 and was ordered 1 unit of PRBC, platelet count 16 and 1 unit of platelet was ordered. Potassium was 3.5 and 20 mEq of oral KCl was given via PEG tube. The patient was bringing out some urine, and was started on Bumex drip 1 mg/h. As the phosphorus was 6.3 we increased the dose of sevelamer carbonate to 1600 Mg p.o. 3 times daily. 06/12/2024: The patient was examined and evaluated at the bedside this morning. Overnight, the patient's O2 saturation was trending down so was bagged by ambu bag, patient bringing adequate urine but unable to measure. Multiple attempts were done to withdraw labs but was unsuccessful. Exam Vital Signs Temp Pulse Resp BP Pulse Ox O2 Del Method O2 Flow Rate 98.1 F 79 28 H 107/81 98 Mechanical Ventilation 90 06/12/24 16:00 06/12/24 18:01 06/12/24 18:01 06/12/24 18:01 06/12/24 18:01 06/12/24 06:00 06/07/24 17:00 FiO2 80 06/12/24 16:00 Narrative Exam PE: Gen: Alert, poorly responsive. Tracheostomy. HEENT: NCAT, anicteric conjunctivae. Dry mucous membranes. CVS: No M/R/G. Afib Resp: Coarse lung sounds. Rhonchi and wheezing all lung ansari. Abd: Abdomen distended, soft. PEG tube. MSK: Good ROM in BUE & BLE. Bilateral lower and upper extremity 4+edema with anasarca. Edematous scrotum. Left and right foot cyanosis, progressing up to distal half of BL foot, Peripheral pulses very much feeble on dorsal pedis and posterior femoral. Neuro: CN II-XII grossly intact. Baseline nonverbal. Sometimes tracks sounds. Objective Labs 06/18/24 06:57 06/18/24 06:57 Labs: Laboratory Results - last 24 hr 06/11/24 09:45 Blood Type O Positive Antibody Screen NEGATIVE Crossmatch See Detail Blood Bank Wristband ID Yes Blood Bank Comment PLATP Ready ABG Interpretation ABG results: 05/31/24 05/31/24 05/31/24 09:33 14:33 16:21 ABG pH 7.25 L 7.18 L* 7.30 L D ABG pCO2 68 H 78 H* D 57 H D ABG pO2 88 124 H D 69 L D ABG HCO3 30 H 29 H 28 H ABG O2 Saturation 96 99 H 94 ABG Base Excess 2 -1 1 VBG pH VBG pCO2 VBG pO2 VBG Base Excess 06/01/24 06/02/24 06/04/24 07:51 18:15 16:07 ABG pH 7.49 H D 7.47 H ABG pCO2 37 D 44 ABG pO2 49 L* D 48 L* ABG HCO3 28 H 32 H ABG O2 Saturation 89 L 86 L ABG Base Excess 5 H 7 H VBG pH 7.45 VBG pCO2 31 L VBG pO2 64 H VBG Base Excess -2 06/06/24 06/07/24 10:24 05:12 ABG pH 7.30 L ABG pCO2 47 ABG pO2 56 L* ABG HCO3 23 ABG O2 Saturation 83 L ABG Base Excess -3 VBG pH 7.35 VBG pCO2 46 D VBG pO2 52 VBG Base Excess 0 Quality Measures Quality Measures VTE prophylaxis Advance care planning discussed with:: spouse Assessment & Plan Assessment Current Active Medications: Generic Name Dose Route Start Last Admin Trade Name Freq PRN Reason Stop Dose Admin Acetaminophen 650 mg 06/04/24 15:09 06/04/24 16:40 Acetaminophen Lindsey 325 Mg/10 Ml Udc GT 07/04/24 15:08 650 mg Q6HR PRN Administration Pain Or Fever > 100.4 Albuterol/Ipratropium 3 ml 06/04/24 15:33 Albuterol/Ipratropium (Duoneb) Rt Lindsey 3 Ml Nebu INH 07/04/24 15:32 Q2HR PRN SHORTNESS OF BREATH OR WHEEZE Amiodarone HCl 200 mg 06/05/24 21:00 06/12/24 09:15 Amiodarone Hcl 200 Mg Tablet GT 07/05/24 20:59 200 mg BID XOCHITL Administration Artificial Tears 0 drop 06/08/24 19:44 06/08/24 20:14 Artificial Tears 225 Drop/15 Ml Btl BOTH EYES 07/08/24 19:43 1 drop PRN PRN Administration TO KEEP EYES MOIST Calcium Acetate 667 mg 06/08/24 08:45 06/12/24 17:14 Calcium Acetate 667 Mg Tablet GT 07/04/24 18:44 667 mg TIDWM XOCHITL Administration Dextrose 25 ml 06/04/24 15:32 Dextrose 50%-Water Inj 50 Ml Syringe IV 07/04/24 15:31 Q15MIN PRN BG 50-70 responsive npo pt Dextrose 50 ml 06/04/24 15:32 Dextrose 50%-Water Inj 50 Ml Syringe IV 07/04/24 15:31 Q15MIN PRN BG <50 OR BG <70 & pt unresponsive Ferrous Sulfate 300 mg 06/11/24 17:30 06/12/24 09:15 Ferrous Sulfate 300 Mg/5 Ml Udc PO 07/11/24 17:29 300 mg QDAY XOCHITL Administration Heparin Sodium (Porcine) 5,000 unit 06/04/24 22:00 06/06/24 06:18 Heparin Sod Inj 5000 Unit/Ml Vial SC 06/18/24 21:59 5,000 unit Q8HR XOCHITL Administration Heparin Sodium (Porcine) 2,200 unit 06/05/24 17:03 06/07/24 08:55 Heparin Sod Inj 1000 Unit/Ml Vial 10 Ml INDWELLCAT 06/19/24 17:02 2,200 unit PRN PRN Administration DIALYSIS Norepinephrine/Dextrose 8 mg in 250 mls @ 6.572 mls/hr 06/03/24 11:37 06/12/24 18:00 Levophed In D5w 8mg/250ml IV 07/03/24 11:36 0.3 mcg/kg/min .Q24H PRN 39.431 mls/hr PER PROTOCOL Titration Protocol 0.05 MCG/KG/MIN Levofloxacin/Dextrose 500 mg in 100 mls @ 100 mls/hr 06/06/24 18:30 06/12/24 17:30 Levaquin Ivpb IV 06/13/24 18:29 100 mls/hr Q48H XOCHITL Administration Albumin Human 25 gm in 100 mls @ 100 mls/min 06/05/24 17:05 06/07/24 08:32 Albuminar-25 Ivpb IV Infused PRN PRN Infusion DIALYSIS Propofol 1,000 mg in 100 mls @ 2.025 mls/hr 06/06/24 08:55 06/08/24 13:28 Diprivan Ivpb IV 07/06/24 08:54 0 mcg/kg/min .Q24H PRN 0 mls/hr PER PROTOCOL Titration Protocol 5 MCG/KG/MIN Bumetanide 20 mg/ IV 80 mls @ 4 mls/hr 06/12/24 01:15 06/12/24 02:00 Miscellaneous Supplies IV 06/12/24 21:14 1 mg/hr .Q20H XOCHITL 4 mls/hr Administration 1 MG/HR Insulin Human Regular 0 unit 06/04/24 18:00 06/12/24 17:22 Insulin Hum Regular 1 Unit/0.01 Ml (Per Unit) SC 07/04/24 17:59 Not Given Q6HR XOCHITL Protocol Lactulose 20 gm 06/08/24 09:00 06/09/24 08:54 Lactulose Syrup 20 Gm/30 Ml Udc GT 07/04/24 21:59 Not Given QDAY XOCHITL Protocol Metoclopramide HCl 5 mg 06/11/24 13:15 06/12/24 17:14 Metoclopramide Inj 5 Mg/Ml Vial 2 Ml IVP 07/11/24 13:14 5 mg Q6HR XOCHITL Administration Protocol Midodrine 5 mg 06/09/24 14:00 06/12/24 13:01 Midodrine 5 Mg Tablet GT 07/09/24 13:59 5 mg TID XOCHITL Administration Pantoprazole Sodium 40 mg 06/04/24 15:30 06/12/24 09:15 Pantoprazole Inj 40 Mg Vial IVP 07/04/24 15:29 40 mg QDAY XOCHITL Administration Pharmacy Consult 1 each 06/04/24 18:24 Pharmacy Renal Dose Adjustment 1 Ea XX 07/04/24 18:23 PRN PRN CONSULT Sevelamer Carbonate 1.6 gm 06/11/24 17:30 06/12/24 17:15 Sevelamer Carbonate 0.8 Gm Packet (Non-Formulary) GT 07/11/24 17:29 1.6 gm TIDWM XOCHITL Administration Plan 73-year-old male with 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 Neuro: #Chronic encephalopathy #CVA with residual deficits Metabolic encephalopathy due to hypoxia Patient is nonverbal at baseline, per family at bedside he is normally somewhat interactive. Currently patient is responsive only to pain, opens eyes, does not track sounds. Patient became close to baseline, responds to loud sounds, does not follow commands or have purposeful movement. Patient became agitated during dialysis, sedated to maintain vent synchronicity. Patient no longer candidate for dialysis as the blood is too thick to pull out of veins, weaning off sedation. -Monitor CVS: #Septic shock 2/2 Acenetobacter baummani and enterobacter aerogenes pneumonia Patient started on levofloxacin based on previous cultures, dosed for acute kidney injury. -Close monitoring -Levophed, titrate as needed -Levofloxacin 750 mg IV x1, followed by Levofloxacin 500 mg IV q48h (Started 06/04) -Clindamycin 600mg IV q6h (started 06/07-06/11) -Follow-up blood cultures, has been negative for 48H #Bilateral LL PAD Physical exam revealed severe peripheral arterial disease with, minimal pulses felt at BL dorsalis pedis and posterior tibialis, with bluish discoloration of BL distal half of foot. -Patient is not a candidate for any surgical intervention due to DIC and not a candidate for antiplatelet as platelet count of 16, #Afib Patient developed afib with RVR prompting rapid response. Amio bolus given, drip completed. Worsening tachycardia during dialysis, resolved with 150mg bolus amiodorone x1. -amiodarone 200mg GT BID -telemonitoring Pulm: #Acute on chronic hypoxic respiratory failure #Aspiration pneumonia #ARDS Patient developed worsening hypoxia despite increasing FiO2 on the floors following massive aspiration. Chest x-ray shows significant bilateral pneumonia, more severe on the left side. Patient has significantly distended abdomen, present on lungs. ABG showed pH 7.18, pCO2 70, pO2 124. Vent settings changed to increase tidal volume and respiratory rate, repeat ABG showed pH 7.3, pCO2 57, pO2 69. Patient improved enough for downgrade to telemetry, was later upgraded back to ICU for worsening hypoxia, hypotension, afib with RVR. Patient continues to have high FiO2 requirements to maintain saturation. Tidal volume decreased from 450 to 380. After sedation discontinued, patient became hypoxic/hypertensive, initially managed with vent settings but required emergent bronchoscopy with lavage of bilateral lungs. Chest x-ray showed increasing fluid in lungs. -Maintain vent settings, wean down FiO2 as tolerated -Lung protective vent strategies -Duoneb as needed -Antibiotics as above GI: #Transaminitis DDx Medication effect vs. severe acute illness Patient has had mild transaminitis during hospital stay. Slightly uptrending, patient on levaquin and amiodarone. Timing does not match rise in LFTs, could be contributing factor. Downtrending -monitor -Unable to obtain labs #PEG tube Patient has chronic PEG tube. Feeds have been held due to large bowel obstruction, now resolved. -Tube feeds, 20ml/hr with 25ml/hr water flushes Renal: #ATN Patient developed ATN due to ischemia in setting of hypotension. Patient had left femoral tri-flow cath placed for dialysis. Patient had difficulty with dialysis. On third day, blood was too thick to properly dialyze. Patient deemed to unstable for furhter dialysis by cleaning validation consultant. Family updated on patient status. Patient anuric. Bumex 3mg IV given x1 without urine output. Patient remains severely fluid overloaded. -Started on Bumex drip -Not suitable candidate for dialysis -Unable to obtain labs #Hypokalemia -Repleted with 20meq KCl -Monitor -Replete as needed #Hyperphosphetemia -calcium acetate TID and sevelamer increased to 1.6 g TID Endo: #DM Patient history -ISS Heme: #Thrombocytopenia due to DIC Patient has had mild thrombocytopenia, steadily worsening for several days. Recently downtrended to 47. No signs of thrombosis or hemorrhaging. DIC panel: PT 14.5, PTT 49, Fibrinogen 515, D-Dimer >3820. LDH elevated. Platelets down to 16 -Transfused with 1 Unit PRBC -Monitor -Treat underlying conditions -Replace platelets if <20k #Leukocytosis Likely due to infection and reactive to patient's worsening overall status. -downtrending -Monitor -Unable to obtain labs #Microcytic anemia Patient has chronic normocytic anemia, with multiple PRBC transfusion making it normocytic No signs of bleeding. -Monitor ID: #Sepsis Procal 8.. Fevers. Patient received Vancomycin and Zosyn previously. Blood cultures grew MRSA, sputum cultures grew Acinetobacter baumannii/haemol. Will adjust antibiotic dosage for reduced creatinine clearance -Levofloxacin 750 mg IV x1, followed by Levofloxacin 500 mg IV q48h (Started 06/04) -Clindamycin 600mg IV q6h (started 06/07-06/11) -Tylenol as needed for fevers -contact precautions Skin/MSK: #Deep tissue injury Patient has deep tissue injury to right upper back. -bandaged #Stage two pressure ulcer Patient has stage 2 pressure ulcer to right buttock. -bandaged ICU Health maintenance: Mechanical ventilation: Yes Sedation:Yes Diet: Tube feeds via PEG DVT ppx: None GI ppx: Protonix Godinez: No IV lines: Peripheral IVs Central line: Femoral tri-flow- DC on 06/10 Arterial line: No Code status: DNR The patient's management plan was discussed with my attending physician MD Alex Franz MD, PGY2 Attending Provider Attestation/Addendum Patient seen and examined with above resident, Alex Garcia MD. I agree with the findings, assessment, and plan of care as documented except for any differences below. Patient remains on vasopressor support as well as high ventilatory and oxygen support in the setting of his septic shock and renal failure from aspiration pneumonia. Notably required intermittent packing with even small position changes which we will continue to limit despite this being bad for his skin. Patient's renal function continues to be inadequate to control volume overload despite attempts using both diuretics and intolerance of hemodialysis with frequent clotting. Patient requiring platelets and PRBCs for DIC component from underlying shock and infection. Patient remains on appropriate antibiotics with Levaquin for Acinetobacter baumannii and seems to have responded to this with resolution of fevers and declining white count of mechanical ventilation unchanged due to volume status and pulmonary edema. Patient also with lower extremity peripheral cyanosis and gangrene in the setting of PAD/DIC. Patient poor candidate from surgical intervention perspective due to his multiple comorbidities and intolerance for antiplatelet therapy due to thrombocytopenia and avoidance of potential precipitation of bleeding. Patient does have pulses intact and does not warrant surgical intervention at this point nor definitive anticoagulation which will also complicate his risk of bleeding. Patient's family updated regularly by the resident staff and they remain adamant about pursuing all aggressive care at this point. I have not personally spoken to them and have now requested social work to organize a family meeting with cap coverer to ensure clarification of status, prognosis, and delineation of goals of care. We have limited his comfort medications including opiates to allow for improvement in mentation and they have been associated with worsening his hypotension. Total critical care time: I personally spent 35 minutes for review of physiologic parameters, directing plan of care throughout the day, and coordination of care with other specialties. This is exclusive of time spent teaching housestaff or performing any separate billable procedures. Patient continues to require critical care services for multiorgan dysfunction in the setting of acute hypoxic respiratory failure from aspiration pneumonia development of septic shock. Patient remains at high risk for worsening morbidity and mortality warranting continued close monitoring and care only available in the intensive care unit.
--- NOTE | 2024-06-12 19:11 | PC.NURSE ---
1230 pt urinated and needed to be changed, RT in the room upon changing the patient. Oxygen dropped to the low 70's RT bagged the patient and patient oxygen came back up after 15 min to the 90's
--- NOTE | 2024-06-12 19:15 | PC.NURSE ---
1645 pt was repositioned and changed due to the patient being soiled. RT and RN Jeremiah in the room patient de-saturated to the low 70's during changing. RT bagged the patient for 10-15 min and oxygen came back up to the 90's. Made aware
[2024-06-13] VITALS (109 sets, daily range): BP systolic 91–149; BP diastolic 37–85; PULSE 75–86; RESP 20–36; TEMP 36.2–36.6; O2SAT 73–100; BMI 28.0
[2024-06-13] MEDS: METOCLOPRAMIDE INJ 5 MG/ML VIAL 2 ML IVP ×5 (00:29→23:42)
[2024-06-13] MEDS: Norepinephrine/D5W 8mg/250ml 8 MG/250 ML BAG 36.803 MG IV (02:32)
[2024-06-13] MEDS: INSULIN HUM REGULAR 1 UNIT/0.01 ML (PER UNIT) SC ×3 (06:10→18:10)
[2024-06-13] MEDS: MIDODRINE 5 MG TABLET GT ×3 (06:11→21:07)
[2024-06-13 07:24] LABS: Basophils # (Auto) 0.1 Thou/mm3 (0.0-0.2); Basophils % (Auto) 0 % (0-2.5); Eosinophils # (Auto) 0.1 Thou/mm3 (0.0-0.5); Eosinophils % (Auto) 0 % (0-10); Hematocrit 21.6 % (41.0-53.0); Immature Granulocytes % (Auto) 4 % (0-0); Immature Granulocytes Auto 0.93 Thou/mm3 (0.00-0.00); Lymphocytes # (Auto) 0.5 Thou/mm3 (1.0-4.8); Lymphocytes % (Auto) 2 % (10-50); Mean Corpuscular HGB Conc 32.9 g/dl (31.0-37.0); Mean Corpuscular Hemoglobin 28.6 pg (25.0-35.0); Mean Corpuscular Volume 87 fL (80-100); Monocytes # (Auto) 1.3 Thou/mm3 (0.0-0.8); Monocytes % (Auto) 5 % (0-12); Neutrophils # (Auto) 22.3 Thou/mm3 (1.8-7.7); Neutrophils % (Auto) 89 % (37-80); Nucleated Red Blood Cell # 0.61 Thou/mm3 (0.00-0.00); Nucleated Red Blood Cell % 2 /100 WBC (0); RDW Standard Deviation 53.5 fL (35.1-43.9); Red Blood Count 2.48 Miln/mm3 (4.50-5.90); White Blood Count 25.1 Thou/mm3 (3.8-10.6)
[2024-06-13 07:29] LABS: Hemoglobin 7.1 g/dL (13.5-16.0); Platelet Count 39 Thou/mm3 (140-440)
--- NOTE | 2024-06-13 08:10 | PD.RESPRO ---
Documentation for date of: 06/13/24 Subjective Subjective Interval history: The patient is a 73-year-old male with previous medical history of CVA, severe cognitive deficit, chronic PEG tube and tracheostomy placement, hyperlipidemia, diabetes mellitus, recurrent UTIs, depression, anxiety, upper extremity bilateral DVT who is a subacute facility resident. He was brought to the hospital due to constipation and abdominal distention for 5 days. Earlier he had similar problems and received enema, had a bowel movement and was transferred back to the facility. He had a manual disimpaction and copious amount of soft stools was evacuated by Dr. Cramer. Rectal tube was placed. Later in admission patient had developed fever, became tachycardic, tachypneic. Imaging showed bilateral pneumonia with continued to worsen, he was started on fluids. He was not able to maintain MAP more than 65, was started on Levophed. Also, EKG showed A-fib with RVR and was started on amiodarine drip. He continued to have multiple bowel movements. His labs showed hypokalemia and hypernatremia. His labs throughout admissionshowed uptrending WBC, hypernatremia, persistent hypokalemia and rapidly declining kidney functions. ICU team had a conversation with patient's family over regarding goals of care, patient's family decided to proceed with full treatment but not to proceed with chest compressions in case of cardiac arrest, patient is limited code. [employer] Helper Dr. Reed was consulted due to ZACH and electrolyte abnormalities treaent and management. 06/05/2024: Patient was seen and examined by the bedside in the ICU. Saturating in the low 90s on FiO2 70%. Continues to require Levophed support. Labs showed sodium 151, potassium 2.9, chloride 113, bicarb 21.3, BUN 57, creatinine 3.2, EGFR 20, glucose 122, corrected calcium 8.4, AST 209, ALT 78, albumin 2.4. Due to hemodynamic instability and patient continuing to require Levophed, will hold off dialysis for today and will try to correct the electrolyte abnormalities and start free water flushes at 100 mL/h. Repeat renal panel showed sodium 150, potassium 3.5, chloride 113, BUN 58, creatinine 3.4, EGFR 18. 06/06/2024: Patient seen and examined at the bedside in the ICU. Today patient opens eyes to the verbal stimulation, but does not follow the objects or follow commands, continues to have rotatory nystagmus and left-sided gaze fixation. Yesterday patient's family decided to proceed with dialysis, dialysis treatment was ended early due to catheter not functioning, after attempting a bowel flush both ports remains sluggish. Dialysis session was stopped. Blood in the arterial line returned but blood and the venous line clotted was unable to return. CBC stat showed hemoglobin 7.3, hemoglobin earlier this day was 8.0. Today patient had a repeat dialysis session, 1 L of fluid was removed. A.m. labs showed hemoglobin 7.4, hematocrit 21.2, platelets 45, INR 1.4, fibrinogen 515, D-dimer more than 3820. Sodium 143, potassium 3.0, BUN 39, creatinine 2.1, lactic acid 3.4. 06/07/2024: Patient seen and examined at bedside in ICU, unable to tolerate dialysis, patient was given IV albumin, blood pressure does not tolerate dialysis treatment. Patient was able to complete dialysis yesterday, had about 804 mL removed, was given 1 unit of IV albumin. Patient's labs reviewed, show WBC 14.2, RBC 2.27, hemoglobin 6.6, hematocrit 18.7, platelet count 20,000, sodium 141, potassium 3.5, bicarb 19.7, BUN 54, creatinine 3.2, GFR 20, total bilirubin 1.7 AST 167 ALT 99, alk phos 188. Patient has poor prognosis, is unable to tolerate dialysis, recommended ICU team to discuss goals of care with family. 06/08/2024: Patient seen and examined at bedside in ICU. Yesterday was not able to unable to tolerate dialysis. Labs show WBC 17.9, hemoglobin 8.4, platelets 17, sodium 138, potassium 2.2, BUN 66, creatinine 3.4, EGFR 18. Patient is not a candidate for a dialysis due hemodynamic instability and developing DIC. Will continue to monitor, patient's prognosis remains poor. 06/09/2024 patient currently seen in ICU. Remains on the ventilator. Labs reviewed. unable to do dialysis due to hemodynamic instability, platelet count of 17,000 and extremely thick blood which is clotting of the dialyzer's. Cannot do heparin drip due to thrombocytopenia. Suspect patient in DIC. Prognosis remains poor. Plan of care discussed with Dr. Garland and ICU team. 06/12/2024 patient currently seen in ICU. Remains on ventilator, nonresponsive. Urine output very minimal. Unfortunately cannot do dialysis due to hemodynamic instability and clotting of dialyzer's. Seems to be in DIC/thrombocytopenia. Labs, medications have been reviewed. Spoke to Dr. Garland. Goals of care to be discussed with family. Prognosis remains poor. 06/13/2024 patient currently seen and examined in ICU. Remains on ventilator, nonresponsive. Urine output very minimal. Significant scrotal edema noted, patient is not a suitable candidate for dialysis, unable to tolerate dialysis, labs, medications have been reviewed. Goals of care to be discussion scheduled with family today. Prognosis remains poor. Exam Vital Signs Temp Pulse Resp BP Pulse Ox O2 Del Method O2 Flow Rate 97.1 F 76 25 H 111/85 H 100 Mechanical Ventilation 90 06/13/24 04:00 06/13/24 07:16 06/13/24 07:16 06/13/24 07:16 06/13/24 07:16 06/13/24 04:00 06/07/24 17:00 FiO2 75 06/13/24 07:00 Narrative Exam Gen: Chronically ill-appearing elderly male. On ventilator HEENT: Left sided gaze fixation with rotatory nystagmus. CVS: normal S1 and S2. RRR. No M/R/G. Resp: CTA B/L. No rhonchi, rales, crackles or wheezing. Abd: soft, non-tender, non-distended. BS decreased. G-tube site unremarkable. MSK: 2+ lower extremity edema. Scrotal anasarca. Bilateral feet with significant cyanosis. The left earlobe seems to have some cyanosis. Neuro: Unresponsive Objective Labs 06/13/24 05:15 06/14/24 05:50 Labs: Laboratory Results - last 24 hr 06/13/24 05:15 WBC 25.1 H D RBC 2.48 L Hgb 7.1 L Hct 21.6 L* MCV 87 MCH 28.6 MCHC 32.9 RDW Std Deviation 53.5 H Plt Count 39 L D Neut % (Auto) 89 H Lymph % (Auto) 2 L [place] % (Auto) 5 Eos % (Auto) 0 Baso % (Auto) 0 Neut # (Auto) 22.3 H Lymph # (Auto) 0.5 L [place] # (Auto) 1.3 H Eos # (Auto) 0.1 Baso # (Auto) 0.1 Immature Gran # (Auto) 0.93 H Absolute Nucleated RBC 0.61 H Immature Gran % 4 H Nucleated RBC % 2 H ABG Interpretation ABG results: 05/31/24 05/31/24 05/31/24 09:33 14:33 16:21 ABG pH 7.25 L 7.18 L* 7.30 L D ABG pCO2 68 H 78 H* D 57 H D ABG pO2 88 124 H D 69 L D ABG HCO3 30 H 29 H 28 H ABG O2 Saturation 96 99 H 94 ABG Base Excess 2 -1 1 VBG pH VBG pCO2 VBG pO2 VBG Base Excess 06/01/24 06/02/24 06/04/24 07:51 18:15 16:07 ABG pH 7.49 H D 7.47 H ABG pCO2 37 D 44 ABG pO2 49 L* D 48 L* ABG HCO3 28 H 32 H ABG O2 Saturation 89 L 86 L ABG Base Excess 5 H 7 H VBG pH 7.45 VBG pCO2 31 L VBG pO2 64 H VBG Base Excess -2 06/06/24 06/07/24 10:24 05:12 ABG pH 7.30 L ABG pCO2 47 ABG pO2 56 L* ABG HCO3 23 ABG O2 Saturation 83 L ABG Base Excess -3 VBG pH 7.35 VBG pCO2 46 D VBG pO2 52 VBG Base Excess 0 Quality Measures Quality Measures VTE prophylaxis Advance care planning discussed with:: patient Assessment & Plan Assessment Current Active Medications: Generic Name Dose Route Start Last Admin Trade Name Freq PRN Reason Stop Dose Admin Acetaminophen 650 mg 06/04/24 15:09 06/04/24 16:40 Acetaminophen Lindsey 325 Mg/10 Ml Udc GT 07/04/24 15:08 650 mg Q6HR PRN Administration Pain Or Fever > 100.4 Albuterol/Ipratropium 3 ml 06/04/24 15:33 Albuterol/Ipratropium (Duoneb) Rt Lindsey 3 Ml Nebu INH 07/04/24 15:32 Q2HR PRN SHORTNESS OF BREATH OR WHEEZE Amiodarone HCl 200 mg 06/05/24 21:00 12/26/24 21:15 Amiodarone Hcl 200 Mg Tablet GT 07/05/24 20:59 200 mg BID XOCHITL Administration Artificial Tears 0 drop 06/08/24 19:44 06/08/24 20:14 Artificial Tears 225 Drop/15 Ml Btl BOTH EYES 07/08/24 19:43 1 drop PRN PRN Administration TO KEEP EYES MOIST Calcium Acetate 667 mg 06/08/24 08:45 06/12/24 17:14 Calcium Acetate 667 Mg Tablet GT 07/04/24 18:44 667 mg TIDWM XCOHITL Administration Dextrose 25 ml 06/04/24 15:32 Dextrose 50%-Water Inj 50 Ml Syringe IV 07/04/24 15:31 Q15MIN PRN BG 50-70 responsive npo pt Dextrose 50 ml 06/04/24 15:32 Dextrose 50%-Water Inj 50 Ml Syringe IV 07/04/24 15:31 Q15MIN PRN BG <50 OR BG <70 & pt unresponsive Ferrous Sulfate 300 mg 06/11/24 17:30 06/12/24 09:15 Ferrous Sulfate 300 Mg/5 Ml Udc PO 07/11/24 17:29 300 mg QDAY XOCHITL Administration Heparin Sodium (Porcine) 5,000 unit 06/04/24 22:00 06/06/24 06:18 Heparin Sod Inj 5000 Unit/Ml Vial SC 06/18/24 21:59 5,000 unit Q8HR XOCHITL Administration Heparin Sodium (Porcine) 2,200 unit 06/05/24 17:03 06/07/24 08:55 Heparin Sod Inj 1000 Unit/Ml Vial 10 Ml INDWELLCAT 06/19/24 17:02 2,200 unit PRN PRN Administration DIALYSIS Norepinephrine/Dextrose 8 mg in 250 mls @ 6.572 mls/hr 06/03/24 11:37 06/13/24 06:00 Levophed In D5w 8mg/250ml IV 07/03/24 11:36 0.28 mcg/kg/min .Q24H PRN 36.803 mls/hr PER PROTOCOL Titration Protocol 0.05 MCG/KG/MIN Levofloxacin/Dextrose 500 mg in 100 mls @ 100 mls/hr 06/06/24 18:30 06/12/24 17:30 Levaquin Ivpb IV 06/13/24 18:29 100 mls/hr Q48H XOCHITL Administration Albumin Human 25 gm in 100 mls @ 100 mls/min 06/05/24 17:05 06/07/24 08:32 Albuminar-25 Ivpb IV Infused PRN PRN Infusion DIALYSIS Propofol 1,000 mg in 100 mls @ 2.025 mls/hr 06/06/24 08:55 06/08/24 13:28 Diprivan Ivpb IV 07/06/24 08:54 0 mcg/kg/min .Q24H PRN 0 mls/hr PER PROTOCOL Titration Protocol 5 MCG/KG/MIN Insulin Human Regular 0 unit 06/04/24 18:00 06/13/24 06:10 Insulin Hum Regular 1 Unit/0.01 Ml (Per Unit) SC 07/04/24 17:59 1 unit Q6HR XOCHITL Administration Protocol Lactulose 20 gm 06/08/24 09:00 06/09/24 08:54 Lactulose Syrup 20 Gm/30 Ml Udc GT 07/04/24 21:59 Not Given QDAY XOCHITL Protocol Metoclopramide HCl 5 mg 06/11/24 13:15 06/13/24 06:10 Metoclopramide Inj 5 Mg/Ml Vial 2 Ml IVP 07/11/24 13:14 5 mg Q6HR XOCHITL Administration Protocol Midodrine 5 mg 06/09/24 14:00 06/13/24 06:11 Midodrine 5 Mg Tablet GT 07/09/24 13:59 5 mg TID XOCHITL Administration Pantoprazole Sodium 40 mg 06/04/24 15:30 06/12/24 09:15 Pantoprazole Inj 40 Mg Vial IVP 07/04/24 15:29 40 mg QDAY XOCHITL Administration Pharmacy Consult 1 each 06/04/24 18:24 Pharmacy Renal Dose Adjustment 1 Ea XX 07/04/24 18:23 PRN PRN CONSULT Sevelamer Carbonate 1.6 gm 06/11/24 17:30 06/12/24 17:15 Sevelamer Carbonate 0.8 Gm Packet (Non-Formulary) GT 07/11/24 17:29 1.6 gm TIDWM XOCHITL Administration Plan Summary: The patient is a 73-year-old male with previous medical history of CVA, severe cognitive deficit, chronic PEG tube and tracheostomy placement, hyperlipidemia, diabetes mellitus, recurrent UTIs, depression, anxiety, upper extremity bilateral DVT who is a subacute facility resident. He was brought to the hospital due to constipation and abdominal distention for 5 days. He also developed pneumonia and acute on chronic respiratory failure. His labs showed hypokalemia and hypernatremia. His labs throughout admissionshowed uptrending WBC, hypernatremia, persistent hypokalemia and rapidly declining kidney functions. [employer] Helper Dr. Reed was consulted due to ZACH and electrolyte abnormalities #ZACH - ATN #Hypokalemia #Hypernatremia, resolved Patient currently in ATN in the setting of septic shock. Patient unable to tolerate dialysis, hypotensive during treatment. Clotted dialyzer. -Recommended ICU team to discuss goals of care with family due to worsening patient's condition and inability to tolerate dialysis. Prognosis remains poor. Plan of care discussed with Dr. Garland ?Replete electrolytes as necessary ?Monitor daily CMP ?Avoid nephrotoxic agents ?Renally dose medications #Acute encephalopathy #CVA with residual deficits #New onset of A-fib #Shock #Acute on chronic hypoxic respiratory failure #ARDS #Severe bilateral pneumonia #Large bowel obstruction improving #Hypokalemia #Leukocytosis #Normocytic anemia #Bacterial pneumonia #Muscle atrophy - management as per primary Plan of care discussed with Dr. Garland and ICU team. Prognosis remains guarded. Case discussed with Attending Dr. Reed. Tex Taylor PGY1 Attending Provider Attestation/Addendum Patient seen and examined with resident physician Dr. Taylor. Note reviewed, agree with findings and recommendations. Unable to offer dialysis due to hemodynamic instability and clotting of dialyzer. Patient with significant cyanosis in the toes
[2024-06-13] MEDS: PANTOPRAZOLE INJ 40 MG VIAL IVP (08:39)
[2024-06-13] MEDS: Ferrous Sulfate 300 MG/5 ML UDC PO (08:39)
[2024-06-13] MEDS: AMIODARONE HCL 200 MG TABLET GT ×2 (08:39→21:07)
[2024-06-13] MEDS: CALCIUM ACETATE 667 MG TABLET GT ×3 (08:40→17:28)
[2024-06-13 08:47] LABS: Alanine Aminotransferase 26 U/L (10-49); Albumin, Serum 2.8 gm/dL (3.4-4.8); Albumin/Globulin Ratio 1.3 (1.2-2.2); Alkaline Phosphatase 182 U/L (46-116); Anion Gap 11 (7-16); Aspartate Amino Transferase 29 U/L (0-34); BUN/Creatinine Ratio 22 Ratio (12-20); Blood Urea Nitrogen 88 mg/dL (9-23); Calcium 8.1 mg/dL (8.3-10.6); Calcium (Corrected) 9.1 mg/dL (8.5-10.1); Carbon Dioxide 22.5 mMol/L (20.0-31.0); Chloride 93 mMol/L (98-107); Estimated Creatinine Clearance 14.4 mL/min (>60); Globulin 2.2 gm/dL (2.3-3.5); Glucose 116 mg/dL (74-106); Magnesium 2.2 mg/dL (1.6-2.6); Osmolality,Calculated 281 (275-295); Phosphorous 6.5 mg/dL (2.4-5.1); Sodium 126 mMol/L (136-145); eGFR 15 See Note
[2024-06-13] MEDS: SEVELAMER CARBONATE 0.8 GM PACKET (NON-FORMULARY) 1.6 GM GT ×3 (08:57→17:28)
[2024-06-13 09:08] LABS: Slide Review Platelets confirmed
[2024-06-13] MEDS: Norepinephrine/D5W 8mg/250ml 8 MG/250 ML BAG 28.916 MG IV (10:30)
[2024-06-13] MEDS: POTASSIUM CHLORIDE 10% 20 MEQ/15 ML UDC 40 MEQ GT (11:20)
--- NOTE | 2024-06-13 14:35 | PC.NURSE ---
at 1340 unable to obtain accurate patient oxygen saturation reading, multiple sites attempted, including fingers, nose, forehead and bilateral ears, Dr. Garcia and Dr. Garland made aware, FIO2 increased to 100% on Ventilator settings per Dr. Garcia, no new orders at this time
--- NOTE | 2024-06-13 14:39 | PC.SS ---
Family meeting conducted today with patient's spouse and children: Saji Alvarez and Flavio Garland and resident's present. cash analyst present to assist with discussion. Dr. Garland informed family of patient's multiple organs failing: lung, kidney and heart. Kidney failure resulting in increased swelling to the patient. Discussed option of transitioning the patient to comfort care. Family declined stating that patient's brothers are in route to visit the patient over the weekend. Following visit, family will re-convene with lending manager to decide whether are not to pursue comfort measures. Treatment plan to remain the same.
--- NOTE | 2024-06-13 14:44 | PC.NURSE ---
attempted to turn patient for wound care, patient oxygen saturation decreased to 69%, unable fully complete wound care
--- NOTE | 2024-06-13 17:02 | ESPR_ITS ---
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 Patient recently came to the ED on 05/24/2024 with similar complaints and received enema following which patient had a bowel movement and transferred back to the facility. Later patient was still found to have constipation for which Dr. Durant was consulted and patient received different bowel regimens and GoLytely with no much effect on constipation. As the patient is having progressive severe abdominal distention with constipation despite bowel regimens and GoLytely he was brought to the hospital today. No history of fever, vomiting. Dr. Durant was consulted and he tried to manually disimpact the stools but unsuccessful. Later Dr Cramer was consulted. 06/10/2024: The patient was examined at the bedside this morning. He continues to be in respiratory distress, RR 30-35, saturating greater than 88% on FiO2 70%. He continues to be on Levophed drip at 0.21. Blood works were done by withdrawing the blood from right femoral hemodialysis catheter. Physical examination was significant for blisters of size measuring up to 2 into 3 cm on left lower extremity, and bluish discoloration of bilateral lower extremity distal half of bilateral foot. Peripheral pulses were very minimally palpable, and the patient is not a candidate for any surgical procedure given the platelet count of 18. Medicine labs are significant for white count trending down to 19.7, hemoglobin 8.6, platelet 28, PT 13.6, INR 1.3, PTT 43.9, and fibrinogen 386. Chemistry revealed sodium 132, potassium 3.3, was repleted with 20 mEq of oral KCl, BUN 81, creatinine 4.0, blood sugar 148, phosphorus 5.5 and we will continue with calcium acetate and sevelamer. Liver enzymes trending down. We will continue with 3 mg IV Bumex twice daily as patient has been bringing out some urine, approximately 500 cc in the entire daytime. Updates were given to the family members. We removed right femoral hemodialysis catheter as the patient is not a candidate for hemodialysis at this point, and it would only lead to further complications. 06/11/24: The patient was examined and evaluated at the bedside this morning. Overnight, it was difficult to get access to PIV lines, and family members were called and Goal of care discussion was done. Patient decision maker Meli wished to proceed with DNR/DNI with no aggressive intervention, POLST was signed as a witness with charge nurse. The patient was desaturating to 70s multiple times, and was requiring ventilation through Ambu bag. Multiple suctioning was required before it would improve oxygen saturation. Labs were significant for white count of 18.2, hemoglobin 6.6 and was ordered 1 unit of PRBC, platelet count 16 and 1 unit of platelet was ordered. Potassium was 3.5 and 20 mEq of oral KCl was given via PEG tube. The patient was bringing out some urine, and was started on Bumex drip 1 mg/h. As the phosphorus was 6.3 we increased the dose of sevelamer carbonate to 1600 Mg p.o. 3 times daily. 06/12/2024: The patient was examined and evaluated at the bedside this morning. Overnight, the patient's O2 saturation was trending down so was bagged by ambu bag, patient bringing adequate urine but unable to measure. Multiple attempts were done to withdraw labs but was unsuccessful. 06/13/2024: The patient was examined and evaluated at the bedside this morning again. No any active overnight events. He was saturating 92% on Fio2 80%. WBC trended up to 25.1, Hb 7.1, with improvement in platlet to 39. Na 126, and K 3.0, repleted with 40 MEQ KCL GT. Renal panel consistent for ATN. Goals of care was discussed with the entire family members and they wished do proceed with current medical management. Exam Vital Signs Temp Pulse Resp BP Pulse Ox O2 Del Method O2 Flow Rate 97.6 F 84 28 H 92/52 L 94 L Mechanical Ventilation 90 06/13/24 16:01 06/13/24 16:45 06/13/24 16:45 06/13/24 16:45 06/13/24 16:45 06/13/24 16:01 06/07/24 17:00 FiO2 100 06/13/24 16:01 Narrative Exam PE: Gen: Alert, poorly responsive. Tracheostomy. HEENT: NCAT, anicteric conjunctivae. Dry mucous membranes. CVS: No M/R/G. Afib Resp: Coarse lung sounds. Rhonchi and wheezing all lung ansari. Abd: Abdomen distended, soft. PEG tube. MSK: Good ROM in BUE & BLE. Bilateral lower and upper extremity 4+edema with anasarca. Edematous scrotum. Left and right foot cyanosis, progressing up to distal half of BL foot, Peripheral pulses very much feeble on dorsal pedis and posterior femoral. Neuro: CN II-XII grossly intact. Baseline nonverbal. Objective Labs 06/18/24 06:57 06/18/24 06:57 Labs: Laboratory Results - last 24 hr 06/13/24 06/13/24 05:15 07:45 WBC 25.1 H D RBC 2.48 L Hgb 7.1 L Hct 21.6 L* MCV 87 MCH 28.6 MCHC 32.9 RDW Std Deviation 53.5 H Plt Count 39 L D Neut % (Auto) 89 H Lymph % (Auto) 2 L [place] % (Auto) 5 Eos % (Auto) 0 Baso % (Auto) 0 Neut # (Auto) 22.3 H Lymph # (Auto) 0.5 L [place] # (Auto) 1.3 H Eos # (Auto) 0.1 Baso # (Auto) 0.1 Immature Gran # (Auto) 0.93 H Absolute Nucleated RBC 0.61 H Immature Gran % 4 H Nucleated RBC % 2 H Sodium 126 L Potassium 3.0 L D Chloride 93 L Carbon Dioxide 22.5 Anion Gap 11 BUN 88 H Creatinine 4.0 H Estim Creat Clear Calc 14.4 L eGFR 15 L BUN/Creatinine Ratio 22 H Glucose 116 H Calculated Osmolality 281 Calcium 8.1 L Corrected Calcium 9.1 Phosphorus 6.5 H Magnesium 2.2 Total Bilirubin 1.0 AST 29 ALT 26 Alkaline Phosphatase 182 H Total Protein 5.0 L Albumin 2.8 L D Globulin 2.2 L Albumin/Globulin Ratio 1.3 Misc Test Result Platelets confirmed ABG Interpretation ABG results: 05/31/24 05/31/24 05/31/24 09:33 14:33 16:21 ABG pH 7.25 L 7.18 L* 7.30 L D ABG pCO2 68 H 78 H* D 57 H D ABG pO2 88 124 H D 69 L D ABG HCO3 30 H 29 H 28 H ABG O2 Saturation 96 99 H 94 ABG Base Excess 2 -1 1 VBG pH VBG pCO2 VBG pO2 VBG Base Excess 06/01/24 06/02/24 06/04/24 07:51 18:15 16:07 ABG pH 7.49 H D 7.47 H ABG pCO2 37 D 44 ABG pO2 49 L* D 48 L* ABG HCO3 28 H 32 H ABG O2 Saturation 89 L 86 L ABG Base Excess 5 H 7 H VBG pH 7.45 VBG pCO2 31 L VBG pO2 64 H VBG Base Excess -2 06/06/24 06/07/24 10:24 05:12 ABG pH 7.30 L ABG pCO2 47 ABG pO2 56 L* ABG HCO3 23 ABG O2 Saturation 83 L ABG Base Excess -3 VBG pH 7.35 VBG pCO2 46 D VBG pO2 52 VBG Base Excess 0 Quality Measures Quality Measures VTE prophylaxis Advance care planning discussed with:: spouse and child Assessment & Plan Assessment Current Active Medications: Generic Name Dose Route Start Last Admin Trade Name Freq PRN Reason Stop Dose Admin Acetaminophen 650 mg 06/04/24 15:09 06/04/24 16:40 Acetaminophen Lindsey 325 Mg/10 Ml Udc GT 07/04/24 15:08 650 mg Q6HR PRN Administration Pain Or Fever > 100.4 Albuterol/Ipratropium 3 ml 06/04/24 15:33 Albuterol/Ipratropium (Duoneb) Rt Lindsey 3 Ml Nebu INH 07/04/24 15:32 Q2HR PRN SHORTNESS OF BREATH OR WHEEZE Amiodarone HCl 200 mg 06/05/24 21:00 06/13/24 08:39 Amiodarone Hcl 200 Mg Tablet GT 07/05/24 20:59 200 mg BID XOCHITL Administration Artificial Tears 0 drop 06/08/24 19:44 06/08/24 20:14 Artificial Tears 225 Drop/15 Ml Btl BOTH EYES 07/08/24 19:43 1 drop PRN PRN Administration TO KEEP EYES MOIST Calcium Acetate 667 mg 06/08/24 08:45 06/13/24 11:20 Calcium Acetate 667 Mg Tablet GT 07/04/24 18:44 667 mg TIDWM XOCHITL Administration Dextrose 25 ml 06/04/24 15:32 Dextrose 50%-Water Inj 50 Ml Syringe IV 07/04/24 15:31 Q15MIN PRN BG 50-70 responsive npo pt Dextrose 50 ml 06/04/24 15:32 Dextrose 50%-Water Inj 50 Ml Syringe IV 07/04/24 15:31 Q15MIN PRN BG <50 OR BG <70 & pt unresponsive Ferrous Sulfate 300 mg 06/11/24 17:30 06/13/24 08:39 Ferrous Sulfate 300 Mg/5 Ml Udc PO 07/11/24 17:29 300 mg QDAY XOCHITL Administration Heparin Sodium (Porcine) 5,000 unit 06/04/24 22:00 06/06/24 06:18 Heparin Sod Inj 5000 Unit/Ml Vial SC 06/18/24 21:59 5,000 unit Q8HR XOCHITL Administration Heparin Sodium (Porcine) 2,200 unit 06/05/24 17:03 06/07/24 08:55 Heparin Sod Inj 1000 Unit/Ml Vial 10 Ml INDWELLCAT 06/19/24 17:02 2,200 unit PRN PRN Administration DIALYSIS Norepinephrine/Dextrose 8 mg in 250 mls @ 6.572 mls/hr 06/03/24 11:37 06/13/24 16:01 Levophed In D5w 8mg/250ml IV 07/03/24 11:36 0.26 mcg/kg/min .Q24H PRN 34.174 mls/hr PER PROTOCOL Titration Protocol 0.05 MCG/KG/MIN Levofloxacin/Dextrose 500 mg in 100 mls @ 100 mls/hr 06/06/24 18:30 06/12/24 17:30 Levaquin Ivpb IV 06/13/24 18:29 100 mls/hr Q48H XOCHITL Administration Albumin Human 25 gm in 100 mls @ 100 mls/min 06/05/24 17:05 06/07/24 08:32 Albuminar-25 Ivpb IV Infused PRN PRN Infusion DIALYSIS Propofol 1,000 mg in 100 mls @ 2.025 mls/hr 06/06/24 08:55 06/08/24 13:28 Diprivan Ivpb IV 07/06/24 08:54 0 mcg/kg/min .Q24H PRN 0 mls/hr PER PROTOCOL Titration Protocol 5 MCG/KG/MIN Insulin Human Regular 0 unit 06/04/24 18:00 06/13/24 13:14 Insulin Hum Regular 1 Unit/0.01 Ml (Per Unit) SC 07/04/24 17:59 1 unit Q6HR XOCHITL Administration Protocol Lactulose 20 gm 06/08/24 09:00 06/09/24 08:54 Lactulose Syrup 20 Gm/30 Ml Udc GT 07/04/24 21:59 Not Given QDAY XOCHITL Protocol Metoclopramide HCl 5 mg 06/11/24 13:15 06/13/24 11:20 Metoclopramide Inj 5 Mg/Ml Vial 2 Ml IVP 07/11/24 13:14 5 mg Q6HR XOCHITL Administration Protocol Midodrine 5 mg 06/09/24 14:00 06/13/24 13:23 Midodrine 5 Mg Tablet GT 07/09/24 13:59 5 mg TID XOCHITL Administration Pantoprazole Sodium 40 mg 06/04/24 15:30 06/13/24 08:39 Pantoprazole Inj 40 Mg Vial IVP 07/04/24 15:29 40 mg QDAY XOCHITL Administration Pharmacy Consult 1 each 06/04/24 18:24 Pharmacy Renal Dose Adjustment 1 Ea XX 07/04/24 18:23 PRN PRN CONSULT Sevelamer Carbonate 1.6 gm 06/11/24 17:30 06/13/24 11:21 Sevelamer Carbonate 0.8 Gm Packet (Non-Formulary) GT 07/11/24 17:29 1.6 gm TIDWM XOCHITL Administration Plan 73-year-old male with 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 Neuro: #Chronic encephalopathy #CVA with residual deficits Metabolic encephalopathy due to hypoxia Patient is nonverbal at baseline, per family at bedside he is normally somewhat interactive. Currently patient is responsive only to pain, opens eyes, does not track sounds. Patient became close to baseline, responds to loud sounds, does not follow commands or have purposeful movement. Patient became agitated during dialysis, sedated to maintain vent synchronicity. Patient no longer candidate for dialysis as the blood is too thick to pull out of veins -Monitor CVS: #Septic shock 2/2 Acenetobacter baummani and enterobacter aerogenes pneumonia Patient started on levofloxacin based on previous cultures, dosed for acute kidney injury. -Close monitoring -Levophed, titrate as needed -Levofloxacin 750 mg IV x1, followed by Levofloxacin 500 mg IV q48h (Started 06/04) -Clindamycin 600mg IV q6h (started 06/07-06/11) -Follow-up blood cultures, has been negative for 48H #Bilateral LL PAD Physical exam revealed severe peripheral arterial disease with, minimal pulses felt at BL dorsalis pedis and posterior tibialis, with bluish discoloration of BL distal half of foot. -Patient is not a candidate for any surgical intervention due to DIC and not a candidate for antiplatelet as platelet count of 39, #Afib Patient developed afib with RVR prompting rapid response. Amio bolus given, drip completed. Worsening tachycardia during dialysis, resolved with 150mg bolus amiodorone x1. -amiodarone 200mg GT BID -telemonitoring Pulm: #Acute on chronic hypoxic respiratory failure #Aspiration pneumonia #ARDS Patient developed worsening hypoxia despite increasing FiO2 on the floors following massive aspiration. Chest x-ray shows significant bilateral pneumonia, more severe on the left side. Patient has significantly distended abdomen, present on lungs. ABG showed pH 7.18, pCO2 70, pO2 124. Vent settings changed to increase tidal volume and respiratory rate, repeat ABG showed pH 7.3, pCO2 57, pO2 69. Patient improved enough for downgrade to telemetry, was later upgraded back to ICU for worsening hypoxia, hypotension, afib with RVR. Patient continues to have high FiO2 requirements to maintain saturation. Tidal volume decreased from 450 to 380. After sedation discontinued, patient became hypoxic/hypertensive, initially managed with vent settings but required emergent bronchoscopy with lavage of bilateral lungs. Chest x-ray showed increasing fluid in lungs. -Maintain vent settings, wean down FiO2 as tolerated -Lung protective vent strategies -Duoneb as needed -Antibiotics as above GI: #Transaminitis DDx Medication effect vs. severe acute illness Patient has had mild transaminitis during hospital stay. Slightly uptrending, patient on levaquin and amiodarone. Timing does not match rise in LFTs, could be contributing factor. Downtrending -monitor #PEG tube Patient has chronic PEG tube. Feeds have been held due to large bowel obstruction, now resolved. -Tube feeds, 20ml/hr Renal: #ATN Patient developed ATN due to ischemia in setting of hypotension. Patient had left femoral tri-flow cath placed for dialysis. Patient had difficulty with dialysis. On third day, blood was too thick to properly dialyze. Patient deemed to unstable for furhter dialysis by instructor decorating. Family updated on patient status. Patient anuric. Bumex 3mg IV given x1 without urine output. Patient remains severely fluid overloaded. -Started on Bumex drip -Not suitable candidate for dialysis -Unable to obtain labs #Hypokalemia -Repleted with 40meq KCl -Monitor -Replete as needed #Hyperphosphetemia -calcium acetate TID and sevelamer increased to 1.6 g TID Endo: #DM Patient history -ISS Heme: #Thrombocytopenia due to DIC Patient has had mild thrombocytopenia, steadily worsening for several days. Recently downtrended to 47. No signs of thrombosis or hemorrhaging. DIC panel: PT 14.5, PTT 49, Fibrinogen 515, D-Dimer >3820. LDH elevated. Platelets down to 16 -Transfused with 1 Unit PRBC -Monitor -Treat underlying conditions -Replace platelets if <20k #Leukocytosis Likely due to infection and reactive to patient's worsening overall status. -WBC 25.2 -Monitor #Microcytic anemia Patient has chronic normocytic anemia, with multiple PRBC transfusion making it normocytic No signs of bleeding. -Monitor ID: #Sepsis Procal 8.19. Fevers. Patient received Vancomycin and Zosyn previously. Blood cultures grew MRSA, sputum cultures grew Acinetobacter baumannii/haemol. Will adjust antibiotic dosage for reduced creatinine clearance -Levofloxacin 750 mg IV x1, followed by Levofloxacin 500 mg IV q48h (Started 06/04) -Clindamycin 600mg IV q6h (started 06/07-06/11) -Tylenol as needed for fevers -contact precautions Skin/MSK: #Deep tissue injury Patient has deep tissue injury to right upper back. -bandaged #Stage two pressure ulcer Patient has stage 2 pressure ulcer to right buttock. -bandaged #Dry gangrene of BL foot -Patient is not a candidate for any surgical procedure -Not a candidate for anti platelet as of low platelets ICU Health maintenance: Mechanical ventilation: Yes Sedation:Yes Diet: Tube feeds via PEG DVT ppx: None GI ppx: Protonix Godinez: No IV lines: Peripheral IVs Central line: Femoral tri-flow- DC on 06/10 Arterial line: No Code status: DNR The patient's management plan was discussed with my attending physician MD Alex Franz MD, PGY2 Attending Provider Attestation/Addendum Patient seen and examined with above resident, Alex Garcia MD. I agree with the findings, assessment, and plan of care as documented except for any differences below. Patient remains with multiorgan failure including presence of acute renal failure and volume overload, with unfortunately unable to perform hemodialysis largely monitoring candidate which has been clearly explained to the family. Patient also with lower extremity bilateral gangrene secondary to high-dose vasopressors with septic shock being worse than prior. Patient with significant thrombocytopenia preventing anticoagulation and antiplatelet therapy requiring transfusions during this hospital course. Patient continues to have poor prognosis. This was discussed extensively with the patient's family at bedside by multiple other services as well as our resident team here. I had requested a meeting with the family at this afternoon with all 3 children and the patient's at bedside. Using a kitchen porter though I do speak German myself to ensure that there was clarification of all findings, prognosis and goals of care in the presence as well of case management. Patient's family is understanding that he does have multiple irreversible conditions that pose high risk of further morbidity and mortality especially in the setting of his chronic debility post CVA and with superimposed septic shock and infection and now requiring mechanical ventilatory support which has become more more difficult in the setting of his renal failure and volume overload. I have made them clearly aware that his demise is likely imminent despite all of our aggressive therapy and that even with survival of the acute phase, there was significant risk of further deterioration and other infections that would likely eventually lead to his demise. They expressed their understanding verbally and this was confirmed with our nursing staff who served as bakery worker. The children seem to be more aware of the significance of and severity of the multiorgan failure more so than the patient's . She has nonetheless elected to defer to her children who through the patient's daughter has been making decisions including recent transition back to DNR status. After discussion, the patient's family has expressed that they would like to await additional family members to come from [place] to pay their final visits as the patient seems to be more awake now with holding of his sedation. I have expressed my concern that the patient is likely in discomfort and that we will minimize any interventions with removal of central catheters and not replacement as they have requested along with withholding labs to avoid additional poking of the patient that we will course due to his discomfort. No additional catheters have been placed to ensure patient is comfortable and minimize risk of further infection. Checks are being used by nursing staff to help quantify if there is any urine output and he continues to have adequate stool on tube feeds. Patient's peak and plateau pressures remain elevated due to her volume status and inability to adequately ultrafiltrate with minimal response to her diuretics thus far. Electrolyte replacement is being given while he is receiving this and sodium remains low. Notably have been unable to significantly wean vasopressors though they are better and no longer leading to further extension of the knee gangrene of the lower extremities. I suspect patient will likely have autoamputation of the necrotic areas as he is not a candidate for surgery and there is no evidence of acute infection at this point though this is likely an additional source that could lead to his demise. Total critical care time: I personally spent 70 minutes for review of physiologic parameters, directing plan of care throughout the day, coordination of care with other subspecialists, and extensive counseling the patient's family about goals of care discussion. This is exclusive of time spent teaching housestaff or performing any separate billable procedures. Patient remains in critical condition with poor prognosis and likely demise during this hospitalization. Will remain in the ICU as this is the only place where his. Needs can be met
--- NOTE | 2024-06-13 18:15 | ESPR_ITS ---
Documentation for date of: 06/13/24 Subjective Subjective Interval history: Enteral hyperalimentation rate at 20 cc an hour Gastric residue remains a problem Exam Vital Signs Temp Pulse Resp BP Pulse Ox O2 Del Method O2 Flow Rate 97.6 F 83 28 H 109/56 L 100 Mechanical Ventilation 90 06/13/24 16:01 06/13/24 18:00 06/13/24 18:00 06/13/24 18:00 06/13/24 18:00 06/13/24 16:01 06/07/24 17:00 FiO2 100 06/13/24 16:01 Routine Respiratory Exam Comments: Mechanically ventilated through the tracheostomy tube Objective Labs 06/13/24 05:15 06/13/24 07:45 Labs: Laboratory Results - last 24 hr 06/13/24 06/13/24 05:15 07:45 WBC 25.1 H D RBC 2.48 L Hgb 7.1 L Hct 21.6 L* MCV 87 MCH 28.6 MCHC 32.9 RDW Std Deviation 53.5 H Plt Count 39 L D Neut % (Auto) 89 H Lymph % (Auto) 2 L [place] % (Auto) 5 Eos % (Auto) 0 Baso % (Auto) 0 Neut # (Auto) 22.3 H Lymph # (Auto) 0.5 L [place] # (Auto) 1.3 H Eos # (Auto) 0.1 Baso # (Auto) 0.1 Immature Gran # (Auto) 0.93 H Absolute Nucleated RBC 0.61 H Immature Gran % 4 H Nucleated RBC % 2 H Sodium 126 L Potassium 3.0 L D Chloride 93 L Carbon Dioxide 22.5 Anion Gap 11 BUN 88 H Creatinine 4.0 H Estim Creat Clear Calc 14.4 L eGFR 15 L BUN/Creatinine Ratio 22 H Glucose 116 H Calculated Osmolality 281 Calcium 8.1 L Corrected Calcium 9.1 Phosphorus 6.5 H Magnesium 2.2 Total Bilirubin 1.0 AST 29 ALT 26 Alkaline Phosphatase 182 H Total Protein 5.0 L Albumin 2.8 L D Globulin 2.2 L Albumin/Globulin Ratio 1.3 Misc Test Result Platelets confirmed Impressions Impression: # Failure to thrive # Dysphagia # PEG tube placement for enteral hyperalimentation gastric varices remains a problem Continue trickle feeding with the enteral hyperalimentation and gradually increase the rate if tolerated ABG Interpretation ABG results: 05/31/24 05/31/2405/31/24 09:33 14:33 16:21 ABG pH 7.25 L 7.18 L* 7.30 L D ABG pCO2 68 H 78 H* D 57 H D ABG pO2 88 124 H D 69 L D ABG HCO3 30 H 29 H 28 H ABG O2 Saturation 96 99 H 94 ABG Base Excess 2 -1 1 VBG pH VBG pCO2 VBG pO2 VBG Base Excess 06/01/24 06/02/24 06/04/24 07:51 18:15 16:07 ABG pH 7.49 H D 7.47 H ABG pCO2 37 D 44 ABG pO2 49 L* D 48 L* ABG HCO3 28 H 32 H ABG O2 Saturation 89 L 86 L ABG Base Excess 5 H 7 H VBG pH 7.45 VBG pCO2 31 L VBG pO2 64 H VBG Base Excess -2 06/06/24 06/07/24 10:24 05:12 ABG pH 7.30 L ABG pCO2 47 ABG pO2 56 L* ABG HCO3 23 ABG O2 Saturation 83 L ABG Base Excess -3 VBG pH 7.35 VBG pCO2 46 D VBG pO2 52 VBG Base Excess 0 Assessment & Plan A&P Narrative 73-year-old male with past medical history of 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 1. A-fib with RVR, new onset 2. Hypokalemia ?Patient developed A-fib with RVR on 06/02/2024 ?Initial EKG showed on admission sinus tachycardia. ?Repeat EKG on 05/31/2024 that showed sinus rhythm ?EKG on 06/02/2024 showed A-fib with RVR and at this time patient's potassium was 2.9. ?Patient is currently DNR/DNI as per family's wishes ? Patient' family did not want any cardioversion at this time. Plan: ?Continue amiodarone drip for now and add amiodarone 200 p.o BID ?Recommend start patient on Eliquis 5 mg twice daily ? Recommend to keep potassium magnesium above 4 and 2 respectively to avoid any further arrhythmias ?Recommend primary care team to have goals of care discussion 06/10/2024: Patient is on mechanical ventilation at the present point of time. Family again changed his status to limited code and wanted to Patient continues to be in A-fib overnight Continue amiodarone for now. Keep potassium greater than 4 and magnesium greater than 2.0 at all times. Unable to do dialysis as per nephrology and primary critical care team as well as nephrology team did discuss goals of care with the family but the patient is still continues to be a limited code with resuscitation except for chest compression. Patient's platelets are also at 17,000. no heprin drip for now Overall patient has multiorgan dysfunction and deteriorating clinical condition over the last couple of days. At the request of the critical care team I did also speak to the son Mr. Muniz for almost 20 to 30 minutes to update the patient about the workup done till now, the treatment as well as the prognosis for the patient in detail. Discussed regarding the goals of care including comfort care in detail and answered all questions to their satisfaction. Son informed me that they will come back with their entire family tomorrow and will let us know their decision. Patient is on pressors and sedation 3. Acute on chronic hypoxic respiratory failure 4. Bilateral community-acquired pneumonia versus hospital-acquired pneumonia ? Continue management as per primary care team 5. Large bowel obstruction ?Continue management as per primary care team 6. CVA with residual deficits 7. Chronic PEG tube and tracheostomy ?Continue current management per primary care team 8. DM2 ? Continue current management as per primary care team 9. Bilateral upper extremity DVTs ? Continue current management as per primary care team 10. Anxiety 11. Depression ? Continue current management as per primary care team 12. Recurrent UTIs ? Continue current management as per primary care team There is a high probability of sudden, clinically significant or life threatening deterioration in the patient condition which required the highest level of physician preparedness to intervene urgently. I have personally spent total of 65 minutes of critical care time yesterday, exclusive of time spent on any procedures, in evaluation and management of this critically ill patient. Management of rest of the medical conditions as per primary team and other consultants. Thank you for the consult and allowing me to participate in the care of the patient. Cardiology will continue to follow. Kit Ho M.D. Interventional Cardiology Time Spent With Patient Time: Total time spent is greater than 50% in coordination of care (as documented) at patient's floor/unit and/or counseling patient:
[2024-06-13] MEDS: Norepinephrine/D5W 8mg/250ml 8 MG/250 ML BAG 31.545 MG IV (19:12)
[2024-06-14] VITALS (111 sets, daily range): BP systolic 91–139; BP diastolic 38–86; PULSE 81–100; RESP 24–33; TEMP 36.6–37.1; O2SAT 84–100
[2024-06-14] MEDS: Norepinephrine/D5W 8mg/250ml 8 MG/250 ML BAG 31.545 MG IV ×2 (04:20→13:55)
[2024-06-14] MEDS: MIDODRINE 5 MG TABLET GT (05:19)
[2024-06-14] MEDS: METOCLOPRAMIDE INJ 5 MG/ML VIAL 2 ML IVP ×3 (05:20→17:28)
[2024-06-14 06:49] LABS: Alanine Aminotransferase 33 U/L (10-49); Albumin, Serum 2.7 gm/dL (3.4-4.8); Albumin/Globulin Ratio 1.4 (1.2-2.2); Alkaline Phosphatase 163 U/L (46-116); Anion Gap 11 (7-16); Aspartate Amino Transferase 21 U/L (0-34); BUN/Creatinine Ratio 23 Ratio (12-20); Bilirubin,Total 1.2 mg/dL (0.3-1.2); Blood Urea Nitrogen 92 mg/dL (9-23); Calcium 7.9 mg/dL (8.3-10.6); Calcium (Corrected) 8.9 mg/dL (8.5-10.1); Carbon Dioxide 23.8 mMol/L (20.0-31.0); Chloride 89 mMol/L (98-107); Estimated Creatinine Clearance 13.8 mL/min (>60); Glucose 110 mg/dL (74-106); Magnesium 2.1 mg/dL (1.6-2.6); Osmolality,Calculated 278 (275-295); Phosphorous 6.4 mg/dL (2.4-5.1); Potassium 3.8 mMol/L (3.4-5.1); Sodium 124 mMol/L (136-145); Total Protein 4.7 gm/dL (5.7-8.2); eGFR 15 See Note
[2024-06-14] MEDS: SEVELAMER CARBONATE 0.8 GM PACKET (NON-FORMULARY) 1.6 GM GT ×3 (08:36→17:28)
[2024-06-14] MEDS: PANTOPRAZOLE INJ 40 MG VIAL IVP (08:37)
[2024-06-14] MEDS: Ferrous Sulfate 300 MG/5 ML UDC PO (08:37)
[2024-06-14] MEDS: AMIODARONE HCL 200 MG TABLET GT ×2 (08:37→21:29)
[2024-06-14] MEDS: CALCIUM ACETATE 667 MG TABLET GT ×3 (08:37→17:29)
--- NOTE | 2024-06-14 09:13 | ESPR_ITS ---
Documentation for date of: 06/14/24 Subjective Subjective Interval history: The patient is a 73-year-old male with previous medical history of CVA, severe cognitive deficit, chronic PEG tube and tracheostomy placement, hyperlipidemia, diabetes mellitus, recurrent UTIs, depression, anxiety, upper extremity bilateral DVT who is a subacute facility resident. He was brought to the hospital due to constipation and abdominal distention for 5 days. Earlier he had similar problems and received enema, had a bowel movement and was transferred back to the facility. He had a manual disimpaction and copious amount of soft stools was evacuated by Dr. Cramer. Rectal tube was placed. Later in admission patient had developed fever, became tachycardic, tachypneic. Imaging showed bilateral pneumonia with continued to worsen, he was started on fluids. He was not able to maintain MAP more than 65, was started on Levophed. Also, EKG showed A-fib with RVR and was started on amiodarine drip. He continued to have multiple bowel movements. His labs showed hypokalemia and hypernatremia. His labs throughout admissionshowed uptrending WBC, hypernatremia, persistent hypokalemia and rapidly declining kidney functions. ICU team had a conversation with patient's family over regarding goals of care, patient's family decided to proceed with full treatment but not to proceed with chest compressions in case of cardiac arrest, patient is limited code. Technical Services Librarian Dr. Reed was consulted due to ZACH and electrolyte abnormalities treaent and management. 06/05/2024: Patient was seen and examined by the bedside in the ICU. Saturating in the low 90s on FiO2 70%. Continues to require Levophed support. Labs showed sodium 151, potassium 2.9, chloride 113, bicarb 21.3, BUN 57, creatinine 3.2, EGFR 20, glucose 122, corrected calcium 8.4, AST 209, ALT 78, albumin 2.4. Due to hemodynamic instability and patient continuing to require Levophed, will hold off dialysis for today and will try to correct the electrolyte abnormalities and start free water flushes at 100 mL/h. Repeat renal panel showed sodium 150, potassium 3.5, chloride 113, BUN 58, creatinine 3.4, EGFR 18. 06/06/2024: Patient seen and examined at the bedside in the ICU. Today patient opens eyes to the verbal stimulation, but does not follow the objects or follow commands, continues to have rotatory nystagmus and left-sided gaze fixation. Yesterday patient's family decided to proceed with dialysis, dialysis treatment was ended early due to catheter not functioning, after attempting a bowel flush both ports remains sluggish. Dialysis session was stopped. Blood in the arterial line returned but blood and the venous line clotted was unable to return. CBC stat showed hemoglobin 7.3, hemoglobin earlier this day was 8.0. Today patient had a repeat dialysis session, 1 L of fluid was removed. A.m. labs showed hemoglobin 7.4, hematocrit 21.2, platelets 45, INR 1.4, fibrinogen 515, D-dimer more than 3820. Sodium 143, potassium 3.0, BUN 39, creatinine 2.1, lactic acid 3.4. 06/07/2024: Patient seen and examined at bedside in ICU, unable to tolerate dialysis, patient was given IV albumin, blood pressure does not tolerate dialysis treatment. Patient was able to complete dialysis yesterday, had about 804 mL removed, was given 1 unit of IV albumin. Patient's labs reviewed, show WBC 14.2, RBC 2.27, hemoglobin 6.6, hematocrit 18.7, platelet count 20,000, sodium 141, potassium 3.5, bicarb 19.7, BUN 54, creatinine 3.2, GFR 20, total bilirubin 1.7 AST 167 ALT 99, alk phos 188. Patient has poor prognosis, is unable to tolerate dialysis, recommended ICU team to discuss goals of care with family. 06/08/2024: Patient seen and examined at bedside in ICU. Yesterday was not able to unable to tolerate dialysis. Labs show WBC 17.9, hemoglobin 8.4, platelets 17, sodium 138, potassium 2.2, BUN 66, creatinine 3.4, EGFR 18. Patient is not a candidate for a dialysis due hemodynamic instability and developing DIC. Will continue to monitor, patient's prognosis remains poor. 06/09/2024 patient currently seen in ICU. Remains on the ventilator. Labs reviewed. unable to do dialysis due to hemodynamic instability, platelet count of 17,000 and extremely thick blood which is clotting of the dialyzer's. Cannot do heparin drip due to thrombocytopenia. Suspect patient in DIC. Prognosis remains poor. Plan of care discussed with Dr. Garland and ICU team. 06/12/2024 patient currently seen in ICU. Remains on ventilator, nonresponsive. Urine output very minimal. Unfortunately cannot do dialysis due to hemodynamic instability and clotting of dialyzer's. Seems to be in DIC/thrombocytopenia. Labs, medications have been reviewed. Spoke to Dr. Garland. Goals of care to be discussed with family. Prognosis remains poor. 06/13/2024 patient currently seen and examined in ICU. Remains on ventilator, nonresponsive. Urine output very minimal. Significant scrotal edema noted, patient is not a suitable candidate for dialysis, unable to tolerate dialysis, labs, medications have been reviewed. Goals of care to be discussion scheduled with family today. Prognosis remains poor. 06/14/2024 patient currently seen and examined in ICU, currently on mechanical ventilation, nonresponsive. Patient is anuric has no urine output in the last 24 hours, significant scrotal edema is noted, goals of care discussion was held with family yesterday by ICU team, they want to continue with current management, case discussed with Dr. Garland, patient's family from [place] wants to come and see the patient. Patient is unable to tolerate dialysis, has extremely thick blood with clotting, patient has poor prognosis overall. Exam Vital Signs Temp Pulse Resp BP Pulse Ox O2 Del Method O2 Flow Rate 98.2 F 87 28 H 109/48 L 97 Mechanical Ventilation 90 06/14/24 04:01 06/14/24 08:37 06/14/24 07:45 06/14/24 08:37 06/14/24 07:45 06/13/24 16:01 06/07/24 17:00 FiO2 70 06/14/24 06:20 Narrative Exam Gen: Chronically ill-appearing elderly male. On ventilator HEENT: Left sided gaze fixation with rotatory nystagmus. CVS: normal S1 and S2. RRR. No M/R/G. Resp: CTA B/L. No rhonchi, rales, crackles or wheezing. Abd: soft, non-tender, non-distended. BS decreased. G-tube site unremarkable. MSK: 3+ lower extremity edema. Scrotal anasarca. Bilateral feet with significant cyanosis. The left earlobe seems to have some cyanosis. Neuro: Unresponsive Objective Labs 06/13/24 05:15 06/14/24 05:50 Labs: Laboratory Results - last 24 hr 06/13/24 06/14/24 07:45 05:50 Sodium 126 L 124 L Potassium 3.0 L D 3.8 D Chloride 93 L 89 L Carbon Dioxide 22.5 23.8 Anion Gap 11 11 BUN 88 H 92 H Creatinine 4.0 H 4.0 H Estim Creat Clear Calc 14.4 L 13.8 L eGFR 15 L 15 L BUN/Creatinine Ratio 22 H 23 H Glucose 116 H 110 H Calculated Osmolality 281 278 Calcium 8.1 L 7.9 L Corrected Calcium 9.1 8.9 Phosphorus 6.5 H 6.4 H Magnesium 2.2 2.1 Total Bilirubin 1.0 1.2 AST 29 21 ALT 26 33 Alkaline Phosphatase 182 H 163 H Total Protein 5.0 L 4.7 L Albumin 2.8 L D 2.7 L Globulin 2.2 L 2.0 L Albumin/Globulin Ratio 1.3 1.4 ABG Interpretation ABG results: 05/31/24 05/31/24 05/31/24 09:33 14:33 16:21 ABG pH 7.25 L 7.18 L* 7.30 L D ABG pCO2 68 H 78 H* D 57 H D ABG pO2 88 124 H D 69 L D ABG HCO3 30 H 29 H 28 H ABG O2 Saturation 96 99 H 94 ABG Base Excess 2 -1 1 VBG pH VBG pCO2 VBG pO2 VBG Base Excess 06/01/24 06/02/24 06/04/24 07:51 18:15 16:07 ABG pH 7.49 H D 7.47 H ABG pCO2 37 D 44 ABG pO2 49 L* D 48 L* ABG HCO3 28 H 32 H ABG O2 Saturation 89 L 86 L ABG Base Excess 5 H 7 H VBG pH 7.45 VBG pCO2 31 L VBG pO2 64 H VBG Base Excess -2 06/06/24 06/07/24 10:24 05:12 ABG pH 7.30 L ABG pCO2 47 ABG pO2 56 L* ABG HCO3 23 ABG O2 Saturation 83 L ABG Base Excess -3 VBG pH 7.35 VBG pCO2 46 D VBG pO2 52 VBG Base Excess 0 Quality Measures Quality Measures VTE prophylaxis Advance care planning discussed with:: patient Assessment & Plan Assessment Current Active Medications: Generic Name Dose Route Start Last Admin Trade Name Freq PRN Reason Stop Dose Admin Acetaminophen 650 mg 06/04/24 15:09 06/04/24 16:40 Acetaminophen Lindsey 325 Mg/10 Ml Udc GT 07/04/24 15:08 650 mg Q6HR PRN Administration Pain Or Fever > 100.4 Albuterol/Ipratropium 3 ml 06/04/24 15:33 Albuterol/Ipratropium (Duoneb) Rt Lindsey 3 Ml Nebu INH 07/04/24 15:32 Q2HR PRN SHORTNESS OF BREATH OR WHEEZE Amiodarone HCl 200 mg 06/05/24 21:00 06/14/24 08:37 Amiodarone Hcl 200 Mg Tablet GT 07/05/24 20:59 200 mg BID XOCHITL Administration Artificial Tears 0 drop 06/08/24 19:44 06/08/24 20:14 Artificial Tears 225 Drop/15 Ml Btl BOTH EYES 07/08/24 19:43 1 drop PRN PRN Administration TO KEEP EYES MOIST Calcium Acetate 667 mg 06/08/24 08:45 06/14/24 08:37 Calcium Acetate 667 Mg Tablet GT 07/04/24 18:44 667 mg TIDWM XOCHITL Administration Dextrose 25 ml 06/04/24 15:32 Dextrose 50%-Water Inj 50 Ml Syringe IV 07/04/24 15:31 Q15MIN PRN BG 50-70 responsive npo pt Dextrose 50 ml 06/04/24 15:32 Dextrose 50%-Water Inj 50 Ml Syringe IV 07/04/24 15:31 Q15MIN PRN BG <50 OR BG <70 & pt unresponsive Ferrous Sulfate 300 mg 06/11/24 17:30 06/14/24 08:37 Ferrous Sulfate 300 Mg/5 Ml Udc PO 07/11/24 17:29 300 mg QDAY XOCHITL Administration Heparin Sodium (Porcine) 5,000 unit 06/04/24 22:00 06/06/24 06:18 Heparin Sod Inj 5000 Unit/Ml Vial SC 06/18/24 21:59 5,000 unit Q8HR XOCHITL Administration Heparin Sodium (Porcine) 2,200 unit 06/05/24 17:03 06/07/24 08:55 Heparin Sod Inj 1000 Unit/Ml Vial 10 Ml INDWELLCAT 06/19/24 17:02 2,200 unit PRN PRN Administration DIALYSIS Norepinephrine/Dextrose 8 mg in 250 mls @ 6.572 mls/hr 06/03/24 11:37 06/14/24 06:00 Levophed In D5w 8mg/250ml IV 07/03/24 11:36 0.24 mcg/kg/min .Q24H PRN 31.545 mls/hr PER PROTOCOL Titration Protocol 0.05 MCG/KG/MIN Albumin Human 25 gm in 100 mls @ 100 mls/min 06/05/24 17:05 06/07/24 08:32 Albuminar-25 Ivpb IV Infused PRN PRN Infusion DIALYSIS Propofol 1,000 mg in 100 mls @ 2.025 mls/hr 06/06/24 08:55 06/08/24 13:28 Diprivan Ivpb IV 07/06/24 08:54 0 mcg/kg/min .Q24H PRN 0 mls/hr PER PROTOCOL Titration Protocol 5 MCG/KG/MIN Insulin Human Regular 0 unit 06/04/24 18:00 06/14/24 05:21 Insulin Hum Regular 1 Unit/0.01 Ml (Per Unit) SC 07/04/24 17:59 Not Given Q6HR XOCHITL Protocol Lactulose 20 gm 06/08/24 09:00 06/09/24 08:54 Lactulose Syrup 20 Gm/30 Ml Udc GT 07/04/24 21:59 Not Given QDAY XOCHITL Protocol Metoclopramide HCl 5 mg 06/11/24 13:15 06/14/24 05:20 Metoclopramide Inj 5 Mg/Ml Vial 2 Ml IVP 07/11/24 13:14 5 mg Q6HR XOCHITL Administration Protocol Midodrine 5 mg 06/09/24 14:00 06/14/24 05:19 Midodrine 5 Mg Tablet GT 07/09/24 13:59 5 mg TID XOCHITL Administration Pantoprazole Sodium 40 mg 06/04/24 15:30 06/14/24 08:37 Pantoprazole Inj 40 Mg Vial IVP 07/04/24 15:29 40 mg QDAY XOCHITL Administration Pharmacy Consult 1 each 06/04/24 18:24 Pharmacy Renal Dose Adjustment 1 Ea XX 07/04/24 18:23 PRN PRN CONSULT Sevelamer Carbonate 1.6 gm 06/11/24 17:30 06/14/24 08:36 Sevelamer Carbonate 0.8 Gm Packet (Non-Formulary) GT 07/11/24 17:29 1.6 gm TIDWM [facility] Administration Plan Summary: The patient is a 73-year-old male with previous medical history of CVA, severe cognitive deficit, chronic PEG tube and tracheostomy placement, hyperlipidemia, diabetes mellitus, recurrent UTIs, depression, anxiety, upper extremity bilateral DVT who is a subacute facility resident. He was brought to the hospital due to constipation and abdominal distention for 5 days. He also developed pneumonia and acute on chronic respiratory failure. His labs showed hypokalemia and hypernatremia. His labs throughout admissionshowed uptrending WBC, hypernatremia, persistent hypokalemia and rapidly declining kidney functions. Technical Services Librarian Dr. Reed was consulted due to ZACH and electrolyte abnormalities #ZACH - ATN #Hypokalemia #Hypernatremia, resolved #Fluid overload Patient currently in ATN in the setting of septic shock. Patient unable to tolerate dialysis, hypotensive during treatment. Clotted dialyzer. Patient does not tolerate dialysis and is also poor candidate for dialysis overall. Patient does have significant scrotal edema, 3+ extremity edema noted as well. -ICU team discussed goals of care with patient's family, they want to continue with current management, some family from [place] will come and visit the patient. ?Replete electrolytes as necessary ?Monitor daily CMP ?Avoid nephrotoxic agents ?Renally dose medications #Acute encephalopathy #CVA with residual deficits #New onset of A-fib #Shock #Acute on chronic hypoxic respiratory failure #ARDS #Severe bilateral pneumonia #Large bowel obstruction improving #Hypokalemia #Leukocytosis #Normocytic anemia #Bacterial pneumonia #Muscle atrophy - management as per primary Plan of care discussed with Dr. Garland and ICU team. Prognosis remains guarded. Case discussed with Attending Dr. Reed. Tex Taylor PGY1 Attending Provider Attestation/Addendum Patient seen and examined with resident physician Dr. Taylor. Note reviewed, agree with findings and recommendations. Unable to offer dialysis due to hemodynamic instability and clotting of dialyzer. Patient bedbound with a tracheostomy and G-tube. Noted goals of care discussed by ICU team. Apparently family wants to continue all aggressive measures. Prognosis remains very poor. Patient with significant cyanosis in the toes
--- NOTE | 2024-06-14 10:03 | PC.NURSE ---
patient unable to tolerate turning, Dr. Malagon aware, patient oxygen desaturates to 72% at lowest
--- NOTE | 2024-06-14 10:56 | PD.IMPROG ---
Documentation for date of: 06/14/24 Subjective Subjective Interval history: Enteral feeding remains a challenge Exam Vital Signs Temp Pulse Resp BP Pulse Ox O2 Del Method O2 Flow Rate 98.5 F 87 29 H 106/49 L 98 Mechanical Ventilation 90 06/14/24 08:01 06/14/24 10:45 06/14/24 10:45 06/14/24 10:45 06/14/24 10:45 06/14/24 08:01 06/07/24 17:00 FiO2 80 06/14/24 08:01 Objective Labs 06/13/24 05:15 06/14/24 05:50 Labs: Laboratory Results - last 24 hr 06/14/24 05:50 Sodium 124 L Potassium 3.8 D Chloride 89 L Carbon Dioxide 23.8 Anion Gap 11 BUN 92 H Creatinine 4.0 H Estim Creat Clear Calc 13.8 L eGFR 15 L BUN/Creatinine Ratio 23 H Glucose 110 H Calculated Osmolality 278 Calcium 7.9 L Corrected Calcium 8.9 Phosphorus 6.4 H Magnesium 2.1 Total Bilirubin 1.2 AST 21 ALT 33 Alkaline Phosphatase 163 H Total Protein 4.7 L Albumin 2.7 L Globulin 2.0 L Albumin/Globulin Ratio 1.4 Impressions Impression: # Failure to thrive # PEG placement for enteral feeding Gastric residue remains a challenge Continue the rate as much as tolerated of the enteral feeding ABG Interpretation ABG results: 05/31/24 05/31/24 05/31/24 09:33 14:33 16:21 ABG pH 7.25 L 7.18 L* 7.30 L D ABG pCO2 68 H 78 H* D 57 H D ABG pO2 88 124 H D 69 L D ABG HCO3 30 H 29 H 28 H ABG O2 Saturation 96 99 H 94 ABG Base Excess 2 -1 1 VBG pH VBG pCO2 VBG pO2 VBG Base Excess 06/01/24 06/02/24 06/04/24 07:51 18:15 16:07 ABG pH 7.49 H D 7.47 H ABG pCO2 37 D 44 ABG pO2 49 L* D 48 L* ABG HCO3 28 H 32 H ABG O2 Saturation 89 L 86 L ABG Base Excess 5 H 7 H VBG pH 7.45 VBG pCO2 31 L VBG pO2 64 H VBG Base Excess -2 06/06/24 06/07/24 10:24 05:12 ABG pH 7.30 L ABG pCO2 47 ABG pO2 56 L* ABG HCO3 23 ABG O2 Saturation 83 L ABG Base Excess -3 VBG pH 7.35 VBG pCO2 46 D VBG pO2 52 VBG Base Excess 0 Assessment & Plan A&P Narrative 73-year-old male with past medical history of 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 1. A-fib with RVR, new onset 2. Hypokalemia ?Patient developed A-fib with RVR on 06/02/2024 ?Initial EKG showed on admission sinus tachycardia. ?Repeat EKG on 05/31/2024 that showed sinus rhythm ?EKG on 06/02/2024 showed A-fib with RVR and at this time patient's potassium was 2.9. ?Patient is currently DNR/DNI as per family's wishes ? Patient' family did not want any cardioversion at this time. Plan: ?Continue amiodarone drip for now and add amiodarone 200 p.o BID ?Recommend start patient on Eliquis 5 mg twice daily ? Recommend to keep potassium magnesium above 4 and 2 respectively to avoid any further arrhythmias ?Recommend primary care team to have goals of care discussion 06/10/2024: Patient is on mechanical ventilation at the present point of time. Family again changed his status to limited code and wanted to Patient continues to be in A-fib overnight Continue amiodarone for now. Keep potassium greater than 4 and magnesium greater than 2.0 at all times. Unable to do dialysis as per nephrology and primary critical care team as well as nephrology team did discuss goals of care with the family but the patient is still continues to be a limited code with resuscitation except for chest compression. Patient's platelets are also at 17,000. no heprin drip for now Overall patient has multiorgan dysfunction and deteriorating clinical condition over the last couple of days. At the request of the critical care team I did also speak to the son Mr. Muniz for almost 20 to 30 minutes to update the patient about the workup done till now, the treatment as well as the prognosis for the patient in detail. Discussed regarding the goals of care including comfort care in detail and answered all questions to their satisfaction. Son informed me that they will come back with their entire family tomorrow and will let us know their decision. Patient is on pressors and sedation 3. Acute on chronic hypoxic respiratory failure 4. Bilateral community-acquired pneumonia versus hospital-acquired pneumonia ? Continue management as per primary care team 5. Large bowel obstruction ?Continue management as per primary care team 6. CVA with residual deficits 7. Chronic PEG tube and tracheostomy ?Continue current management per primary care team 8. DM2 ? Continue current management as per primary care team 9. Bilateral upper extremity DVTs ? Continue current management as per primary care team 10. Anxiety 11. Depression ? Continue current management as per primary care team 12. Recurrent UTIs ? Continue current management as per primary care team There is a high probability of sudden, clinically significant or life threatening deterioration in the patient condition which required the highest level of physician preparedness to intervene urgently. I have personally spent total of 65 minutes of critical care time yesterday, exclusive of time spent on any procedures, in evaluation and management of this critically ill patient. Management of rest of the medical conditions as per primary team and other consultants. Thank you for the consult and allowing me to participate in the care of the patient. Cardiology will continue to follow. Kit Ho M.D. Interventional Cardiology Time Spent With Patient Time: Total time spent is greater than 50% in coordination of care (as documented) at patient's floor/unit and/or counseling patient:
[2024-06-14] MEDS: BUMETANIDE 0.5 MG TABLET 4 MG PO (12:05)
[2024-06-14] MEDS: SODIUM CHLORIDE 1 GM TABLET GT ×2 (13:54→21:30)
[2024-06-14] MEDS: MIDODRINE 5 MG TABLET 10 MG GT ×2 (13:54→21:30)
--- NOTE | 2024-06-14 15:04 | PD.RESPRO ---
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 Patient recently came to the ED on 05/24/2024 with similar complaints and received enema following which patient had a bowel movement and transferred back to the facility. Later patient was still found to have constipation for which Dr. Durant was consulted and patient received different bowel regimens and GoLytely with no much effect on constipation. As the patient is having progressive severe abdominal distention with constipation despite bowel regimens and GoLytely he was brought to the hospital today. No history of fever, vomiting. Dr. Durant was consulted and he tried to manually disimpact the stools but unsuccessful. Later Dr Cramer was consulted. 06/10/2024: The patient was examined at the bedside this morning. He continues to be in respiratory distress, RR 30-35, saturating greater than 88% on FiO2 70%. He continues to be on Levophed drip at 0.21. Blood works were done by withdrawing the blood from right femoral hemodialysis catheter. Physical examination was significant for blisters of size measuring up to 2 into 3 cm on left lower extremity, and bluish discoloration of bilateral lower extremity distal half of bilateral foot. Peripheral pulses were very minimally palpable, and the patient is not a candidate for any surgical procedure given the platelet count of 18. Medicine labs are significant for white count trending down to 19.7, hemoglobin 8.6, platelet 28, PT 13.6, INR 1.3, PTT 43.9, and fibrinogen 386. Chemistry revealed sodium 132, potassium 3.3, was repleted with 20 mEq of oral KCl, BUN 81, creatinine 4.0, blood sugar 148, phosphorus 5.5 and we will continue with calcium acetate and sevelamer. Liver enzymes trending down. We will continue with 3 mg IV Bumex twice daily as patient has been bringing out some urine, approximately 500 cc in the entire daytime. Updates were given to the family members. We removed right femoral hemodialysis catheter as the patient is not a candidate for hemodialysis at this point, and it would only lead to further complications. 06/11/24: The patient was examined and evaluated at the bedside this morning. Overnight, it was difficult to get access to PIV lines, and family members were called and Goal of care discussion was done. Patient decision maker Meli wished to proceed with DNR/DNI with no aggressive intervention, POLST was signed as a witness with charge nurse. The patient was desaturating to 70s multiple times, and was requiring ventilation through Ambu bag. Multiple suctioning was required before it would improve oxygen saturation. Labs were significant for white count of 18.2, hemoglobin 6.6 and was ordered 1 unit of PRBC, platelet count 16 and 1 unit of platelet was ordered. Potassium was 3.5 and 20 mEq of oral KCl was given via PEG tube. The patient was bringing out some urine, and was started on Bumex drip 1 mg/h. As the phosphorus was 6.3 we increased the dose of sevelamer carbonate to 1600 Mg p.o. 3 times daily. 06/12/2024: The patient was examined and evaluated at the bedside this morning. Overnight, the patient's O2 saturation was trending down so was bagged by ambu bag, patient bringing adequate urine but unable to measure. Multiple attempts were done to withdraw labs but was unsuccessful. 06/13/2024: The patient was examined and evaluated at the bedside this morning again. No any active overnight events. He was saturating 92% on Fio2 80%. WBC trended up to 25.1, Hb 7.1, with improvement in platlet to 39. Na 126, and K 3.0, repleted with 40 MEQ KCL GT. Renal panel consistent for ATN. Goals of care was discussed with the entire family members and they wished do proceed with current medical management. 06/14/2024: Patient was seen and examined at bedside. No overnight events. Difficulty drawiung labs this morning due to DIC, patient blood rapidly clotting in vials. Future lab draws discontinued, will order if needed. Cyanosis progressing. Patient remains minimally responsive. Patient is making some amount of urine, scheduled Bumex ordered. Dilauded ordered for patient pain/discomfort. Exam Vital Signs Temp Pulse Resp BP Pulse Ox O2 Del Method O2 Flow Rate 98.3 F 85 28 H 119/53 L 98 Mechanical Ventilation 90 06/14/24 12:00 06/14/24 14:53 06/14/24 14:00 06/14/24 14:53 06/14/24 14:53 06/14/24 12:00 06/07/24 17:00 FiO2 80 06/14/24 14:53 Narrative Exam PE: Gen: Alert, poorly responsive. Tracheostomy. HEENT: NCAT, anicteric conjunctivae. Dry mucous membranes. Left ear cyanotic. CVS: No M/R/G. Afib Resp: Coarse lung sounds. Rhonchi and wheezing all lung ansari. Abd: Abdomen distended, soft. PEG tube. MSK: Good ROM in BUE & BLE. Bilateral lower and upper extremity 4+edema with anasarca. Edematous scrotum with ulcerations.. Left and right foot cyanosis, progressing up to distal half of BL foot, Peripheral pulses very much feeble on dorsal pedis and posterior femoral. Left toes necrosis. Skin tear left kulkarni. Neuro: CN II-XII grossly intact. Baseline nonverbal. Objective Labs 06/18/24 06:57 06/18/24 06:57 Labs: Laboratory Results - last 24 hr 06/14/24 05:50 Sodium 124 L Potassium 3.8 D Chloride 89 L Carbon Dioxide 23.8 Anion Gap 11 BUN 92 H Creatinine 4.0 H Estim Creat Clear Calc 13.8 L eGFR 15 L BUN/Creatinine Ratio 23 H Glucose 110 H Calculated Osmolality 278 Calcium 7.9 L Corrected Calcium 8.9 Phosphorus 6.4 H Magnesium 2.1 Total Bilirubin 1.2 AST 21 ALT 33 Alkaline Phosphatase 163 H Total Protein 4.7 L Albumin 2.7 L Globulin 2.0 L Albumin/Globulin Ratio 1.4 ABG Interpretation ABG results: 05/31/24 05/31/24 05/31/24 09:33 14:33 16:21 ABG pH 7.25 L 7.18 L* 7.30 L D ABG pCO2 68 H 78 H* D 57 H D ABG pO2 88 124 H D 69 L D ABG HCO3 30 H 29 H 28 H ABG O2 Saturation 96 99 H 94 ABG Base Excess 2 -1 1 VBG pH VBG pCO2 VBG pO2 VBG Base Excess 06/01/24 06/02/24 06/04/24 07:51 18:15 16:07 ABG pH 7.49 H D 7.47 H ABG pCO2 37 D 44 ABG pO2 49 L* D 48 L* ABG HCO3 28 H 32 H ABG O2 Saturation 89 L 86 L ABG Base Excess 5 H 7 H VBG pH 7.45 VBG pCO2 31 L VBG pO2 64 H VBG Base Excess -2 06/06/24 06/07/24 10:24 05:12 ABG pH 7.30 L ABG pCO2 47 ABG pO2 56 L* ABG HCO3 23 ABG O2 Saturation 83 L ABG Base Excess -3 VBG pH 7.35 VBG pCO2 46 D VBG pO2 52 VBG Base Excess 0 Quality Measures Quality Measures VTE prophylaxis Advance care planning discussed with:: spouse Assessment & Plan Assessment Current Active Medications: Generic Name Dose Route Start Last Admin Trade Name Freq PRN Reason Stop Dose Admin Acetaminophen 650 mg 06/04/24 15:09 06/04/24 16:40 Acetaminophen Lindsey 325 Mg/10 Ml Udc GT 07/04/24 15:08 650 mg Q6HR PRN Administration Pain Or Fever > 100.4 Protocol Albuterol/Ipratropium 3 ml 06/04/24 15:33 Albuterol/Ipratropium (Duoneb) Rt Lindsey 3 Ml Nebu INH 07/04/24 15:32 Q2HR PRN SHORTNESS OF BREATH OR WHEEZE Amiodarone HCl 200 mg 06/05/24 21:00 06/14/24 08:37 Amiodarone Hcl 200 Mg Tablet GT 07/05/24 20:59 200 mg BID XOCHITL Administration Artificial Tears 0 drop 06/08/24 19:44 06/08/24 20:14 Artificial Tears 225 Drop/15 Ml Btl BOTH EYES 07/08/24 19:43 1 drop PRN PRN Administration TO KEEP EYES MOIST Bumetanide 4 mg 06/14/24 21:00 Bumetanide 0.5 Mg Tablet GT 07/14/24 20:59 BID XOCHITL Calcium Acetate 667 mg 06/08/24 08:45 06/14/24 12:06 Calcium Acetate 667 Mg Tablet GT 07/04/24 18:44 667 mg TIDWM XOCHITL Administration Dextrose 25 ml 06/04/24 15:32 Dextrose 50%-Water Inj 50 Ml Syringe IV 07/04/24 15:31 Q15MIN PRN BG 50-70 responsive npo pt Dextrose 50 ml 06/04/24 15:32 Dextrose 50%-Water Inj 50 Ml Syringe IV 07/04/24 15:31 Q15MIN PRN BG <50 OR BG <70 & pt unresponsive Ferrous Sulfate 300 mg 06/11/24 17:30 06/14/24 08:37 Ferrous Sulfate 300 Mg/5 Ml Udc PO 07/11/24 17:29 300 mg QDAY XOCHITL Administration Heparin Sodium (Porcine) 5,000 unit 06/04/24 22:00 06/06/24 06:18 Heparin Sod Inj 5000 Unit/Ml Vial SC 06/18/24 21:59 5,000 unit Q8HR XOCHITL Administration Heparin Sodium (Porcine) 2,200 unit 06/05/24 17:03 06/07/24 08:55 Heparin Sod Inj 1000 Unit/Ml Vial 10 Ml INDWELLCAT 06/19/24 17:02 2,200 unit PRN PRN Administration DIALYSIS Hydromorphone HCl 0.25 mg 06/14/24 13:05 Hydromorphone Inj 2 Mg/Ml Vial IVP 06/19/24 13:04 Q3HR PRN PAIN Protocol Norepinephrine/Dextrose 8 mg in 250 mls @ 6.572 mls/hr 06/03/24 11:37 06/14/24 13:55 Levophed In D5w 8mg/250ml IV 07/03/24 11:36 0.24 mcg/kg/min .Q24H PRN 31.545 mls/hr PER PROTOCOL Administration Protocol 0.05 MCG/KG/MIN Albumin Human 25 gm in 100 mls @ 100 mls/min 06/05/24 17:05 06/07/24 08:32 Albuminar-25 Ivpb IV Infused PRN PRN Infusion DIALYSIS Propofol 1,000 mg in 100 mls @ 2.025 mls/hr 06/06/24 08:55 06/08/24 13:28 Diprivan Ivpb IV 07/06/24 08:54 0 mcg/kg/min .Q24H PRN 0 mls/hr PER PROTOCOL Titration Protocol 5 MCG/KG/MIN Insulin Human Regular 0 unit 06/04/24 18:00 06/14/24 12:11 Insulin Hum Regular 1 Unit/0.01 Ml (Per Unit) SC 07/04/24 17:59 Not Given Q6HR [facility] Protocol Lactulose 20 gm 06/08/24 09:00 06/09/24 08:54 Lactulose Syrup 20 Gm/30 Ml Udc GT 07/04/24 21:59 Not Given QDAY XOCHITL Protocol Metoclopramide HCl 5 mg 06/11/24 13:15 06/14/24 12:06 Metoclopramide Inj 5 Mg/Ml Vial 2 Ml IVP 07/11/24 13:14 5 mg Q6HR XOCHITL Administration Protocol Midodrine 10 mg 06/14/24 14:00 06/14/24 13:54 Midodrine 5 Mg Tablet GT 07/14/24 13:59 10 mg TID XOCHITL Administration Pantoprazole Sodium 40 mg 06/04/24 15:30 06/14/24 08:37 Pantoprazole Inj 40 Mg Vial IVP 07/04/24 15:29 40 mg QDAY XOCHITL Administration Pharmacy Consult 1 each 06/04/24 18:24 Pharmacy Renal Dose Adjustment 1 Ea XX 07/04/24 18:23 PRN PRN CONSULT Sevelamer Carbonate 1.6 gm 06/11/24 17:30 06/14/24 12:12 Sevelamer Carbonate 0.8 Gm Packet (Non-Formulary) GT 07/11/24 17:29 1.6 gm TIDWM XOCHITL Administration Sodium Chloride 1 gm 06/14/24 13:15 06/14/24 13:54 Sodium Chloride 1 Gm Tablet GT 07/14/24 13:14 1 gm BID XOCHITL Administration Plan 73-year-old male with 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 Neuro: #Chronic encephalopathy #CVA with residual deficits Metabolic encephalopathy due to hypoxia Patient is nonverbal at baseline, per family at bedside he is normally somewhat interactive. Currently patient is responsive only to pain, opens eyes, does not track sounds. Patient became close to baseline, responds to loud sounds, does not follow commands or have purposeful movement. Patient became agitated during dialysis, sedated to maintain vent synchronicity. Patient no longer candidate for dialysis as the blood is too thick to pull out of veins -Monitor CVS: #Septic shock 2/2 Acenetobacter baummani and enterobacter aerogenes pneumonia Patient started on levofloxacin based on previous cultures, dosed for acute kidney injury. -Close monitoring -Levophed, titrate as needed -Levofloxacin 750 mg IV x1, followed by Levofloxacin 500 mg IV q48h (06/04-06/14) -Clindamycin 600mg IV q6h (started 06/07-06/11) -Follow-up blood cultures, has been negative for 48H #Bilateral LL PAD Physical exam revealed severe peripheral arterial disease with, minimal pulses felt at BL dorsalis pedis and posterior tibialis, with bluish discoloration of BL distal half of foot. -Patient is not a candidate for any surgical intervention due to DIC and not a candidate for antiplatelet as platelet count of 39 #Afib Patient developed afib with RVR prompting rapid response. Amio bolus given, drip completed. Worsening tachycardia during dialysis, resolved with 150mg bolus amiodorone x1. -amiodarone 200mg GT BID -telemonitoring Pulm: #Acute on chronic hypoxic respiratory failure #Aspiration pneumonia #ARDS Patient developed worsening hypoxia despite increasing FiO2 on the floors following massive aspiration. Chest x-ray shows significant bilateral pneumonia, more severe on the left side. Patient has significantly distended abdomen, present on lungs. ABG showed pH 7.18, pCO2 70, pO2 124. Vent settings changed to increase tidal volume and respiratory rate, repeat ABG showed pH 7.3, pCO2 57, pO2 69. Patient improved enough for downgrade to telemetry, was later upgraded back to ICU for worsening hypoxia, hypotension, afib with RVR. Patient continues to have high FiO2 requirements to maintain saturation. Tidal volume decreased from 450 to 380. After sedation discontinued, patient became hypoxic/hypertensive, initially managed with vent settings but required emergent bronchoscopy with lavage of bilateral lungs. Chest x-ray showed increasing fluid in lungs. -Maintain vent settings, wean down FiO2 as tolerated -Lung protective vent strategies -Duoneb as needed -Antibiotic course completed GI: #Transaminitis DDx Medication effect vs. severe acute illness Patient has had mild transaminitis during hospital stay. Slightly uptrending, patient on levaquin and amiodarone. Timing does not match rise in LFTs, could be contributing factor. Downtrending -monitor #PEG tube Patient has chronic PEG tube. Feeds have been held due to large bowel obstruction, now resolved. -Tube feeds, 20ml/hr Renal: #ATN Patient developed ATN due to ischemia in setting of hypotension. Patient had left femoral tri-flow cath placed for dialysis. Patient had difficulty with dialysis. On third day, blood was too thick to properly dialyze. Patient deemed to unstable for furhter dialysis by clerical support. Family updated on patient status. Patient anuric. Bumex 3mg IV given x1 without urine output. Patient remains severely fluid overloaded. -Started on Bumex 4mg GT BID -Not suitable candidate for dialysis -Unable to obtain labs #Hypokalemia -Repleted with 40meq KCl -Monitor -Replete as needed #Hyperphosphetemia -calcium acetate TID and sevelamer increased to 1.6 g TID Endo: #DM Patient history -ISS Heme: #Thrombocytopenia due to DIC Patient has had mild thrombocytopenia, steadily worsening for several days. Recently downtrended to 47. No signs of thrombosis or hemorrhaging. DIC panel: PT 14.5, PTT 49, Fibrinogen 515, D-Dimer >3820. LDH elevated. Platelets down to 16 Transfused with 1 Unit PRBC Patient received platelet transfusions -Monitor -Treat underlying conditions -Replace platelets if <20k #Leukocytosis Likely due to infection and reactive to patient's worsening overall status. -WBC 25.2 -Monitor #Microcytic anemia Patient has chronic normocytic anemia, with multiple PRBC transfusion making it normocytic No signs of bleeding. -Monitor ID: #Sepsis Procal 8.19. Fevers. Patient received Vancomycin and Zosyn previously. Blood cultures grew MRSA, sputum cultures grew Acinetobacter baumannii/haemol. Will adjust antibiotic dosage for reduced creatinine clearance -Levofloxacin 750 mg IV x1, followed by Levofloxacin 500 mg IV q48h (06/04-06/14) -Clindamycin 600mg IV q6h (started 06/07-06/11) -Tylenol as needed for fevers -contact precautions Skin/MSK: #Deep tissue injury Patient has deep tissue injury to right upper back. -bandaged #Stage two pressure ulcer Patient has stage 2 pressure ulcer to right buttock. -bandaged #Dry gangrene of BL foot -Patient is not a candidate for any surgical procedure -Not a candidate for anti platelet as of low platelets #Ulceration of scrotum Patient unable to be turned regularly due to desaturations. -attempt to keep dry/clean ICU Health maintenance: Mechanical ventilation: Yes Sedation:No Diet: Tube feeds via PEG DVT ppx: SCDs GI ppx: Protonix Godinez: No IV lines: Peripheral IVs Central line: Femoral tri-flow- DC on 06/10 Arterial line: No Code status: DNR Plan of care discussed with my attending Dr. Garland. Jayjay Malagon MD PGY-1 Attending Provider Attestation/Addendum Patient seen and examined with above resident, Jayjay Malagon MD. I agree with the findings, assessment, and plan of care as documented except for any differences below. Patient remains stable although continues to require vasopressors and remains difficult to oxygenate and ventilate due to volume overload in the setting of his renal failure. Patient receiving Bumex with difficult to quantify urine output though multiple chucks needing to be changed and large voids being reported by nursing staff. Will continue to hold labs at the request of the patient's family to avoid pokes. Will replace potassium empirically continue to monitor over the coming days. We are awaiting additional family members from [place] to arrive over this weekend after my discussion yesterday. Based on their wishes, patient will be maintained on intermittent opiates as the patient continues to struggle although his mentation is unchanged and family feels that he is is awake as he normally would be and this is why they are awaiting additional family before they decide whether or not to withdraw care. Patient's son and was at bedside this afternoon. No additional family members present. Patient continued on appropriate supportive care. He does have significant fluid overload warranting continued diuresis in the setting of his renal failure as he has been deemed not a candidate for hemodialysis due to prior issues with circuit and overall prognosis. Similarly gangrene of the lower extremity seems to have stabilized with no extension. Patient does not have evidence of large vessel occlusion warranting surgical intervention. Patient also with thrombocytopenia though this has improved with transfusions, will hold on additional dosing of aspirin or anticoagulation at this time. Minimize pressors as this is likely precipitant for small vessel occlusion leading to distal necrosis. Total critical care time: I personally spent 30 minutes for review of physiologic parameters, directing plan of care throughout the day, and coordination of care with other subspecialties. This is exclusive of time spent teaching housestaff or performing any separate billable procedures. Patient continues to require critical care services for acute respiratory failure requiring mechanical ventilation in setting of aspiration pneumonia and septic shock. Patient remains at high risk for increased morbidity and mortality with multiorgan failure warranting close monitoring of care only available in the intensive care unit.
--- NOTE | 2024-06-14 18:43 | PC.NURSE ---
at 1700 pt turned to change wet pads underneath, pt oxygen saturation decreased to low 60%, patient sat up and recovered to oxygen saturation of 91% with 100% FIO2, RT at bedside and Dr. Melchor notified and at bedside, at 1800 patient oxygen saturation decreased to 85% RT notified, FIO2 increased to 90% by RT at bedside
[2024-06-14] MEDS: BUMETANIDE 0.5 MG TABLET 4 MG GT (21:29)
[2024-06-15] VITALS (111 sets, daily range): BP systolic 79–132; BP diastolic 37–72; PULSE 78–89; RESP 28–35; TEMP 36.4–37.6; O2SAT 84–100
[2024-06-15] MEDS: Norepinephrine/D5W 8mg/250ml 8 MG/250 ML BAG 23.659 MG IV (00:35)
[2024-06-15] MEDS: MIDODRINE 5 MG TABLET 10 MG GT ×3 (06:02→21:02)
[2024-06-15] MEDS: METOCLOPRAMIDE INJ 5 MG/ML VIAL 2 ML IVP ×4 (06:02→17:29)
[2024-06-15] MEDS: SEVELAMER CARBONATE 0.8 GM PACKET (NON-FORMULARY) 1.6 GM GT ×3 (09:30→17:29)
[2024-06-15] MEDS: CALCIUM ACETATE 667 MG TABLET GT ×3 (09:30→17:29)
[2024-06-15] MEDS: SODIUM CHLORIDE 1 GM TABLET GT ×2 (09:30→21:02)
[2024-06-15] MEDS: PANTOPRAZOLE INJ 40 MG VIAL IVP (09:30)
[2024-06-15] MEDS: Ferrous Sulfate 300 MG/5 ML UDC PO (09:30)
[2024-06-15] MEDS: AMIODARONE HCL 200 MG TABLET GT ×2 (09:31→21:00)
[2024-06-15] MEDS: BUMETANIDE 0.5 MG TABLET 4 MG GT ×2 (09:31→21:01)
--- NOTE | 2024-06-15 11:00 | ESPR_ITS ---
Documentation for date of: 06/15/24 Subjective Subjective Interval history: The patient is a 73-year-old male with previous medical history of CVA, severe cognitive deficit, chronic PEG tube and tracheostomy placement, hyperlipidemia, diabetes mellitus, recurrent UTIs, depression, anxiety, upper extremity bilateral DVT who is a subacute facility resident. He was brought to the hospital due to constipation and abdominal distention for 5 days. Earlier he had similar problems and received enema, had a bowel movement and was transferred back to the facility. He had a manual disimpaction and copious amount of soft stools was evacuated by Dr. Cramer. Rectal tube was placed. Later in admission patient had developed fever, became tachycardic, tachypneic. Imaging showed bilateral pneumonia with continued to worsen, he was started on fluids. He was not able to maintain MAP more than 65, was started on Levophed. Also, EKG showed A-fib with RVR and was started on amiodarine drip. He continued to have multiple bowel movements. His labs showed hypokalemia and hypernatremia. His labs throughout admissionshowed uptrending WBC, hypernatremia, persistent hypokalemia and rapidly declining kidney functions. ICU team had a conversation with patient's family over regarding goals of care, patient's family decided to proceed with full treatment but not to proceed with chest compressions in case of cardiac arrest, patient is limited code. [employer] Dr. Reed was consulted due to ZACH and electrolyte abnormalities treaent and management. 06/05/2024: Patient was seen and examined by the bedside in the ICU. Saturating in the low 90s on FiO2 70%. Continues to require Levophed support. Labs showed sodium 151, potassium 2.9, chloride 113, bicarb 21.3, BUN 57, creatinine 3.2, EGFR 20, glucose 122, corrected calcium 8.4, AST 209, ALT 78, albumin 2.4. Due to hemodynamic instability and patient continuing to require Levophed, will hold off dialysis for today and will try to correct the electrolyte abnormalities and start free water flushes at 100 mL/h. Repeat renal panel showed sodium 150, potassium 3.5, chloride 113, BUN 58, creatinine 3.4, EGFR 18. 06/06/2024: Patient seen and examined at the bedside in the ICU. Today patient opens eyes to the verbal stimulation, but does not follow the objects or follow commands, continues to have rotatory nystagmus and left-sided gaze fixation. Yesterday patient's family decided to proceed with dialysis, dialysis treatment was ended early due to catheter not functioning, after attempting a bowel flush both ports remains sluggish. Dialysis session was stopped. Blood in the arterial line returned but blood and the venous line clotted was unable to return. CBC stat showed hemoglobin 7.3, hemoglobin earlier this day was 8.0. Today patient had a repeat dialysis session, 1 L of fluid was removed. A.m. labs showed hemoglobin 7.4, hematocrit 21.2, platelets 45, INR 1.4, fibrinogen 515, D-dimer more than 3820. Sodium 143, potassium 3.0, BUN 39, creatinine 2.1, lactic acid 3.4. 06/07/2024: Patient seen and examined at bedside in ICU, unable to tolerate dialysis, patient was given IV albumin, blood pressure does not tolerate dialysis treatment. Patient was able to complete dialysis yesterday, had about 804 mL removed, was given 1 unit of IV albumin. Patient's labs reviewed, show WBC 14.2, RBC 2.27, hemoglobin 6.6, hematocrit 18.7, platelet count 20,000, sodium 141, potassium 3.5, bicarb 19.7, BUN 54, creatinine 3.2, GFR 20, total bilirubin 1.7 AST 167 ALT 99, alk phos 188. Patient has poor prognosis, is unable to tolerate dialysis, recommended ICU team to discuss goals of care with family. 06/08/2024: Patient seen and examined at bedside in ICU. Yesterday was not able to unable to tolerate dialysis. Labs show WBC 17.9, hemoglobin 8.4, platelets 17, sodium 138, potassium 2.2, BUN 66, creatinine 3.4, EGFR 18. Patient is not a candidate for a dialysis due hemodynamic instability and developing DIC. Will continue to monitor, patient's prognosis remains poor. 06/09/2024 patient currently seen in ICU. Remains on the ventilator. Labs reviewed. unable to do dialysis due to hemodynamic instability, platelet count of 17,000 and extremely thick blood which is clotting of the dialyzer's. Cannot do heparin drip due to thrombocytopenia. Suspect patient in DIC. Prognosis remains poor. Plan of care discussed with Dr. Garland and ICU team. 06/12/2024 patient currently seen in ICU. Remains on ventilator, nonresponsive. Urine output very minimal. Unfortunately cannot do dialysis due to hemodynamic instability and clotting of dialyzer's. Seems to be in DIC/thrombocytopenia. Labs, medications have been reviewed. Spoke to Dr. Garland. Goals of care to be discussed with family. Prognosis remains poor. 06/13/2024 patient currently seen and examined in ICU. Remains on ventilator, nonresponsive. Urine output very minimal. Significant scrotal edema noted, patient is not a suitable candidate for dialysis, unable to tolerate dialysis, labs, medications have been reviewed. Goals of care to be discussion scheduled with family today. Prognosis remains poor. 06/14/2024 patient currently seen and examined in ICU, currently on mechanical ventilation, nonresponsive. Patient is anuric has no urine output in the last 24 hours, significant scrotal edema is noted, goals of care discussion was held with family yesterday by ICU team, they want to continue with current management, case discussed with Dr. Garland, patient's family from [place] wants to come and see the patient. Patient is unable to tolerate dialysis, has extremely thick blood with clotting, patient has poor prognosis overall. 06/15/2024: Patient currently seen and examined in ICU, currently on mechanical ventilation, nonresponsive. Patient is anuric has no urine output in the last 24 hours, significant scrotal edema and toe dry gangrene is noted. Patient is unable to tolerate dialysis, has extremely thick blood with clotting, patient has poor prognosis overall. Exam Vital Signs Temp Pulse Resp BP Pulse Ox O2 Del Method O2 Flow Rate 98.9 F 85 28 H 111/51 L 92 L Mechanical Ventilation 90 06/15/24 04:00 06/15/24 10:07 06/15/24 06:30 06/15/24 10:07 06/15/24 10:07 06/14/24 16:00 06/07/24 17:00 FiO2 75 06/15/24 10:07 Narrative Exam Gen: Chronically ill-appearing elderly male. On ventilator HEENT: Left sided gaze fixation with rotatory nystagmus. CVS: normal S1 and S2. RRR. No M/R/G. Resp: CTA B/L. No rhonchi, rales, crackles or wheezing. Abd: soft, non-tender, non-distended. BS decreased. G-tube site unremarkable. MSK: 3+ lower extremity edema. Scrotal anasarca. Bilateral feet with significant cyanosis and toes with dry grangrene. The left earlobe cyanotic. Neuro: Unresponsive Objective Labs 06/13/24 05:15 06/14/24 05:50 Labs: Laboratory Results - last 24 hr 06/14/24 09:30 WBC Cancelled RBC Cancelled Hgb Cancelled Hct Cancelled MCV Cancelled MCH Cancelled MCHC Cancelled RDW Std Deviation Cancelled Plt Count Cancelled Neut % (Auto) Cancelled Lymph % (Auto) Cancelled [place] % (Auto) Cancelled Eos % (Auto) Cancelled Baso % (Auto) Cancelled Neut # (Auto) Cancelled Lymph # (Auto) Cancelled [place] # (Auto) Cancelled Eos # (Auto) Cancelled Baso # (Auto) Cancelled Immature Gran # (Auto) Cancelled Absolute Nucleated RBC Cancelled Immature Gran % Cancelled Nucleated RBC % Cancelled ABG Interpretation ABG results: 05/31/24 05/31/24 05/31/24 09:33 14:33 16:21 ABG pH 7.25 L 7.18 L* 7.30 L D ABG pCO2 68 H 78 H* D 57 H D ABG pO2 88 124 H D 69 L D ABG HCO3 30 H 29 H 28 H ABG O2 Saturation 96 99 H 94 ABG Base Excess 2 -1 1 VBG pH VBG pCO2 VBG pO2 VBG Base Excess 06/01/24 06/02/24 06/04/24 07:51 18:15 16:07 ABG pH 7.49 H D 7.47 H ABG pCO2 37 D 44 ABG pO2 49 L* D 48 L* ABG HCO3 28 H 32 H ABG O2 Saturation 89 L 86 L ABG Base Excess 5 H 7 H VBG pH 7.45 VBG pCO2 31 L VBG pO2 64 H VBG Base Excess -2 06/06/24 06/07/24 10:24 05:12 ABG pH 7.30 L ABG pCO2 47 ABG pO2 56 L* ABG HCO3 23 ABG O2 Saturation 83 L ABG Base Excess -3 VBG pH 7.35 VBG pCO2 46 D VBG pO2 52 VBG Base Excess 0 Quality Measures Quality Measures VTE prophylaxis Advance care planning discussed with:: other Assessment & Plan Assessment Current Active Medications: Generic Name Dose Route Start Last Admin Trade Name Freq PRN Reason Stop Dose Admin Acetaminophen 650 mg 06/04/24 15:09 06/04/24 16:40 Acetaminophen Lindsey 325 Mg/10 Ml Udc GT 07/04/24 15:08 650 mg Q6HR PRN Administration Pain Or Fever > 100.4 Protocol Albuterol/Ipratropium 3 ml 06/04/24 15:33 Albuterol/Ipratropium (Duoneb) Rt Lindsey 3 Ml Nebu INH 07/04/24 15:32 Q2HR PRN SHORTNESS OF BREATH OR WHEEZE Amiodarone HCl 200 mg 06/05/24 21:00 06/15/24 09:31 Amiodarone Hcl 200 Mg Tablet GT 07/05/24 20:59 200 mg BID XOCHITL Administration Artificial Tears 0 drop 06/08/24 19:44 06/08/24 20:14 Artificial Tears 225 Drop/15 Ml Btl BOTH EYES 07/08/24 19:43 1 drop PRN PRN Administration TO KEEP EYES MOIST Bumetanide 4 mg 06/14/24 21:00 06/15/24 09:31 Bumetanide 0.5 Mg Tablet GT 07/14/24 20:59 4 mg BID XOCHITL Administration Calcium Acetate 667 mg 06/08/24 08:45 06/15/24 09:30 Calcium Acetate 667 Mg Tablet GT 07/04/24 18:44 667 mg TIDWM XOCHITL Administration Dextrose 25 ml 06/04/24 15:32 Dextrose 50%-Water Inj 50 Ml Syringe IV 07/04/24 15:31 Q15MIN PRN BG 50-70 responsive npo pt Dextrose 50 ml 06/04/24 15:32 Dextrose 50%-Water Inj 50 Ml Syringe IV 07/04/24 15:31 Q15MIN PRN BG <50 OR BG <70 & pt unresponsive Ferrous Sulfate 300 mg 06/11/24 17:30 06/15/24 09:30 Ferrous Sulfate 300 Mg/5 Ml Udc PO 07/11/24 17:29 300 mg QDAY XOCHITL Administration Heparin Sodium (Porcine) 5,000 unit 06/04/24 22:00 06/06/24 06:18 Heparin Sod Inj 5000 Unit/Ml Vial SC 06/18/24 21:59 5,000 unit Q8HR XOCHITL Administration Heparin Sodium (Porcine) 2,200 unit 06/05/24 17:03 06/07/24 08:55 Heparin Sod Inj 1000 Unit/Ml Vial 10 Ml INDWELLCAT 06/19/24 17:02 2,200 unit PRN PRN Administration DIALYSIS Hydromorphone HCl 0.25 mg 06/14/24 13:05 Hydromorphone Inj 2 Mg/Ml Vial IVP 06/19/24 13:04 Q3HR PRN PAIN Protocol Norepinephrine/Dextrose 8 mg in 250 mls @ 6.572 mls/hr 06/03/24 11:37 06/15/24 06:00 Levophed In D5w 8mg/250ml IV 07/03/24 11:36 0.18 mcg/kg/min .Q24H PRN 23.659 mls/hr PER PROTOCOL Titration Protocol 0.05 MCG/KG/MIN Albumin Human 25 gm in 100 mls @ 100 mls/min 06/05/24 17:05 06/07/24 08:32 Albuminar-25 Ivpb IV Infused PRN PRN Infusion DIALYSIS Propofol 1,000 mg in 100 mls @ 2.025 mls/hr 06/06/24 08:55 06/08/24 13:28 Diprivan Ivpb IV 07/06/24 08:54 0 mcg/kg/min .Q24H PRN 0 mls/hr PER PROTOCOL Titration Protocol 5 MCG/KG/MIN Insulin Human Regular 0 unit 06/04/24 18:00 06/15/24 05:47 Insulin Hum Regular 1 Unit/0.01 Ml (Per Unit) SC 07/04/24 17:59 Not Given Q6HR XOCHITL Protocol Lactulose 20 gm 06/08/24 09:00 06/09/24 08:54 Lactulose Syrup 20 Gm/30 Ml Udc GT 07/04/24 21:59 Not Given QDAY XOCHITL Protocol Metoclopramide HCl 5 mg 06/11/24 13:15 06/15/24 06:02 Metoclopramide Inj 5 Mg/Ml Vial 2 Ml IVP 07/11/24 13:14 5 mg Q6HR XOCHITL Administration Protocol Midodrine 10 mg 06/14/24 14:00 06/15/24 06:02 Midodrine 5 Mg Tablet GT 07/14/24 13:59 10 mg TID XOCHITL Administration Pantoprazole Sodium 40 mg 06/04/24 15:30 06/15/24 09:30 Pantoprazole Inj 40 Mg Vial IVP 07/04/24 15:29 40 mg QDAY XOCHITL Administration Pharmacy Consult 1 each 06/04/24 18:24 Pharmacy Renal Dose Adjustment 1 Ea XX 07/04/24 18:23 PRN PRN CONSULT Sevelamer Carbonate 1.6 gm 06/11/24 17:30 06/15/24 09:30 Sevelamer Carbonate 0.8 Gm Packet (Non-Formulary) GT 07/11/24 17:29 1.6 gm TIDWM XOCHITL Administration Sodium Chloride 1 gm 06/14/24 13:15 06/15/24 09:30 Sodium Chloride 1 Gm Tablet GT 07/14/24 13:14 1 gm BID XOCHITL Administration Plan Summary: The patient is a 73-year-old male with previous medical history of CVA, severe cognitive deficit, chronic PEG tube and tracheostomy placement, hyperlipidemia, diabetes mellitus, recurrent UTIs, depression, anxiety, upper extremity bilateral DVT who is a subacute facility resident. He was brought to the hospital due to constipation and abdominal distention for 5 days. He also developed pneumonia and acute on chronic respiratory failure. His labs showed hypokalemia and hypernatremia. His labs throughout admissionshowed uptrending WBC, hypernatremia, persistent hypokalemia and rapidly declining kidney functions. [employer] Dr. Reed was consulted due to ZACH and electrolyte abnormalities #ZACH - ATN #Hypokalemia #Hypernatremia, resolved #Fluid overload Patient currently in ATN in the setting of septic shock. Patient unable to tolerate dialysis, hypotensive during treatment. Clotted dialyzer. Patient does not tolerate dialysis and is also poor candidate for dialysis overall. Patient does have significant scrotal edema, 3+ extremity edema noted as well. -ICU team discussed goals of care with patient's family, they want to continue with current management, some family from [place] will come and visit the patient over the weekend. ?Replete electrolytes as necessary ?Monitor daily CMP ?Avoid nephrotoxic agents ?Renally dose medications #Acute encephalopathy #CVA with residual deficits #New onset of A-fib #Shock #Acute on chronic hypoxic respiratory failure #ARDS #Severe bilateral pneumonia #Large bowel obstruction improving #Hypokalemia #Leukocytosis #Normocytic anemia #Bacterial pneumonia #Muscle atrophy - management as per primary Plan of care discussed with Dr. Garland and ICU team. Prognosis remains guarded. Plan of care discussed with attending Dr. Reed. Cuca Kaplan MD, PGY 1. Attending Provider Attestation/Addendum Patient seen and examined with resident physician Dr. Thurman. Note reviewed, agree with findings and recommendations. Unable to offer dialysis due to hemodynamic instability and clotting of dialyzer. Patient bedbound with a tracheostomy and G-tube. Noted goals of care discussed by ICU team. Apparently family wants to continue all aggressive measures. Prognosis remains very poor. Patient with significant cyanosis in the toes Plan of care discussed with Dr. Garland.
--- NOTE | 2024-06-15 12:10 | ESPR_ITS ---
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 Patient recently came to the ED on 05/24/2024 with similar complaints and received enema following which patient had a bowel movement and transferred back to the facility. Later patient was still found to have constipation for which Dr. Durant was consulted and patient received different bowel regimens and GoLytely with no much effect on constipation. As the patient is having progressive severe abdominal distention with constipation despite bowel regimens and GoLytely he was brought to the hospital today. No history of fever, vomiting. Dr. Durant was consulted and he tried to manually disimpact the stools but unsuccessful. Later Dr Cramer was consulted. 06/10/2024: The patient was examined at the bedside this morning. He continues to be in respiratory distress, RR 30-35, saturating greater than 88% on FiO2 70%. He continues to be on Levophed drip at 0.21. Blood works were done by withdrawing the blood from right femoral hemodialysis catheter. Physical examination was significant for blisters of size measuring up to 2 into 3 cm on left lower extremity, and bluish discoloration of bilateral lower extremity distal half of bilateral foot. Peripheral pulses were very minimally palpable, and the patient is not a candidate for any surgical procedure given the platelet count of 18. Medicine labs are significant for white count trending down to 19.7, hemoglobin 8.6, platelet 28, PT 13.6, INR 1.3, PTT 43.9, and fibrinogen 386. Chemistry revealed sodium 132, potassium 3.3, was repleted with 20 mEq of oral KCl, BUN 81, creatinine 4.0, blood sugar 148, phosphorus 5.5 and we will continue with calcium acetate and sevelamer. Liver enzymes trending down. We will continue with 3 mg IV Bumex twice daily as patient has been bringing out some urine, approximately 500 cc in the entire daytime. Updates were given to the family members. We removed right femoral hemodialysis catheter as the patient is not a candidate for hemodialysis at this point, and it would only lead to further complications. 06/11/24: The patient was examined and evaluated at the bedside this morning. Overnight, it was difficult to get access to PIV lines, and family members were called and Goal of care discussion was done. Patient decision maker Meli wished to proceed with DNR/DNI with no aggressive intervention, POLST was signed as a witness with charge nurse. The patient was desaturating to 70s multiple times, and was requiring ventilation through Ambu bag. Multiple suctioning was required before it would improve oxygen saturation. Labs were significant for white count of 18.2, hemoglobin 6.6 and was ordered 1 unit of PRBC, platelet count 16 and 1 unit of platelet was ordered. Potassium was 3.5 and 20 mEq of oral KCl was given via PEG tube. The patient was bringing out some urine, and was started on Bumex drip 1 mg/h. As the phosphorus was 6.3 we increased the dose of sevelamer carbonate to 1600 Mg p.o. 3 times daily. 06/12/2024: The patient was examined and evaluated at the bedside this morning. Overnight, the patient's O2 saturation was trending down so was bagged by ambu bag, patient bringing adequate urine but unable to measure. Multiple attempts were done to withdraw labs but was unsuccessful. 06/13/2024: The patient was examined and evaluated at the bedside this morning again. No any active overnight events. He was saturating 92% on Fio2 80%. WBC trended up to 25.1, Hb 7.1, with improvement in platlet to 39. Na 126, and K 3.0, repleted with 40 MEQ KCL GT. Renal panel consistent for ATN. Goals of care was discussed with the entire family members and they wished do proceed with current medical management. 06/14/2024: Patient was seen and examined at bedside. No overnight events. Difficulty drawing labs this morning due to DIC, patient blood rapidly clotting in vials. Future lab draws discontinued, will order if needed. Cyanosis progressing. Patient remains minimally responsive. Patient is making some amount of urine, scheduled Bumex ordered. Dilauded ordered for patient pain/discomfort. 06/15/2024: Patient seen and examined at bedside. No labs drawn this morning. Patient had 3 unmeasured but large urinary voids overnight. Will continue with Bumex, will give with albumin for increased diuresis. potassium 20mEq BID added due to continuous diuresis. Patient minimally responsive. Decreased levophed today. Pressures on vent remain elevated, peak pressure >40 and plateau pressure 39. Exam Vital Signs Temp Pulse Resp BP Pulse Ox O2 Del Method O2 Flow Rate 99.0 F 84 30 H 96/41 L 99 Mechanical Ventilation 90 06/15/24 08:00 06/15/24 11:30 06/15/24 11:30 06/15/24 11:30 06/15/24 11:30 06/15/24 08:00 06/07/24 17:00 FiO2 75 06/15/24 10:07 Narrative Exam PE: Gen: Alert, poorly responsive. Tracheostomy. HEENT: NCAT, anicteric conjunctivae. Dry mucous membranes. Left ear cyanotic. CVS: No M/R/G. Afib Resp: Coarse lung sounds. Rhonchi and wheezing all lung ansari. Abd: Abdomen distended, soft. PEG tube. MSK: Good ROM in BUE & BLE. Bilateral lower and upper extremity 4+ edema with anasarca. Weeping of upper extremities bilaterally. Edematous scrotum with ulcerations. Left and right foot cyanosis, progressing up to distal half of BL foot, Peripheral pulses very much feeble on dorsal pedis and posterior femoral. Left toes necrosis. Skin tear left kulkarni. Neuro: CN II-XII grossly intact. Baseline nonverbal. Objective Labs 06/13/24 05:15 06/14/24 05:50 Labs: Laboratory Results - last 24 hr 06/14/24 09:30 WBC Cancelled RBC Cancelled Hgb Cancelled Hct Cancelled MCV Cancelled MCH Cancelled MCHC Cancelled RDW Std Deviation Cancelled Plt Count Cancelled Neut % (Auto) Cancelled Lymph % (Auto) Cancelled [place] % (Auto) Cancelled Eos % (Auto) Cancelled Baso % (Auto) Cancelled Neut # (Auto) Cancelled Lymph # (Auto) Cancelled [place] # (Auto) Cancelled Eos # (Auto) Cancelled Baso # (Auto) Cancelled Immature Gran # (Auto) Cancelled Absolute Nucleated RBC Cancelled Immature Gran % Cancelled Nucleated RBC % Cancelled ABG Interpretation ABG results: 05/31/24 05/31/24 05/31/24 09:33 14:33 16:21 ABG pH 7.25 L 7.18 L* 7.30 L D ABG pCO2 68 H 78 H* D 57 H D ABG pO2 88 124 H D 69 L D ABG HCO3 30 H 29 H 28 H ABG O2 Saturation 96 99 H 94 ABG Base Excess 2 -1 1 VBG pH VBG pCO2 VBG pO2 VBG Base Excess 06/01/24 06/02/24 06/04/24 07:51 18:15 16:07 ABG pH 7.49 H D 7.47 H ABG pCO2 37 D 44 ABG pO2 49 L* D 48 L* ABG HCO3 28 H 32 H ABG O2 Saturation 89 L 86 L ABG Base Excess 5 H 7 H VBG pH 7.45 VBG pCO2 31 L VBG pO2 64 H VBG Base Excess -2 06/06/24 06/07/24 10:24 05:12 ABG pH 7.30 L ABG pCO2 47 ABG pO2 56 L* ABG HCO3 23 ABG O2 Saturation 83 L ABG Base Excess -3 VBG pH 7.35 VBG pCO2 46 D VBG pO2 52 VBG Base Excess 0 Quality Measures Quality Measures VTE prophylaxis Advance care planning discussed with:: spouse Assessment & Plan Assessment Current Active Medications: Generic Name Dose Route Start Last Admin Trade Name Freq PRN Reason Stop Dose Admin Acetaminophen 650 mg 06/04/24 15:09 06/04/24 16:40 Acetaminophen Lindsey 325 Mg/10 Ml Udc GT 07/04/24 15:08 650 mg Q6HR PRN Administration Pain Or Fever > 100.4 Protocol Albuterol/Ipratropium 3 ml 06/04/24 15:33 Albuterol/Ipratropium (Duoneb) Rt Lindsey 3 Ml Nebu INH 07/04/24 15:32 Q2HR PRN SHORTNESS OF BREATH OR WHEEZE Amiodarone HCl 200 mg 06/05/24 21:00 06/15/24 09:31 Amiodarone Hcl 200 Mg Tablet GT 07/05/24 20:59 200 mg BID XOCHITL Administration Artificial Tears 0 drop 06/08/24 19:44 06/08/24 20:14 Artificial Tears 225 Drop/15 Ml Btl BOTH EYES 07/08/24 19:43 1 drop PRN PRN Administration TO KEEP EYES MOIST Bumetanide 4 mg 06/14/24 21:00 06/15/24 09:31 Bumetanide 0.5 Mg Tablet GT 07/14/24 20:59 4 mg BID XOCHITL Administration Calcium Acetate 667 mg 06/08/24 08:45 06/15/24 09:30 Calcium Acetate 667 Mg Tablet GT 07/04/24 18:44 667 mg TIDWM XOCHITL Administration Dextrose 25 ml 06/04/24 15:32 Dextrose 50%-Water Inj 50 Ml Syringe IV 07/04/24 15:31 Q15MIN PRN BG 50-70 responsive npo pt Dextrose 50 ml 06/04/24 15:32 Dextrose 50%-Water Inj 50 Ml Syringe IV 07/04/24 15:31 Q15MIN PRN BG <50 OR BG <70 & pt unresponsive Ferrous Sulfate 300 mg 06/11/24 17:30 06/15/24 09:30 Ferrous Sulfate 300 Mg/5 Ml Udc PO 07/11/24 17:29 300 mg QDAY XOCHITL Administration Heparin Sodium (Porcine) 5,000 unit 06/04/24 22:00 06/06/24 06:18 Heparin Sod Inj 5000 Unit/Ml Vial SC 06/18/24 21:59 5,000 unit Q8HR XOCHITL Administration Heparin Sodium (Porcine) 2,200 unit 06/05/24 17:03 06/07/24 08:55 Heparin Sod Inj 1000 Unit/Ml Vial 10 Ml INDWELLCAT 06/19/24 17:02 2,200 unit PRN PRN Administration DIALYSIS Hydromorphone HCl 0.25 mg 06/14/24 13:05 Hydromorphone Inj 2 Mg/Ml Vial IVP 06/19/24 13:04 Q3HR PRN PAIN Protocol Norepinephrine/Dextrose 8 mg in 250 mls @ 6.572 mls/hr 06/03/24 11:37 06/15/24 06:00 Levophed In D5w 8mg/250ml IV 07/03/24 11:36 0.18 mcg/kg/min .Q24H PRN 23.659 mls/hr PER PROTOCOL Titration Protocol 0.05 MCG/KG/MIN Albumin Human 25 gm in 100 mls @ 100 mls/min 06/05/24 17:05 06/07/24 08:32 Albuminar-25 Ivpb IV Infused PRN PRN Infusion DIALYSIS Propofol 1,000 mg in 100 mls @ 2.025 mls/hr 06/06/24 08:55 06/08/24 13:28 Diprivan Ivpb IV 07/06/24 08:54 0 mcg/kg/min .Q24H PRN 0 mls/hr PER PROTOCOL Titration Protocol 5 MCG/KG/MIN Albumin Human 25 gm in 100 mls @ 100 mls/hr 06/15/24 11:45 Albuminar-25 Ivpb IV 06/15/24 12:44 X1 ONE Insulin Human Regular 0 unit 06/04/24 18:00 06/15/24 11:35 Insulin Hum Regular 1 Unit/0.01 Ml (Per Unit) SC 07/04/24 17:59 Not Given Q6HR XOCHITL Protocol Lactulose 20 gm 06/08/24 09:00 06/09/24 08:54 Lactulose Syrup 20 Gm/30 Ml [facility] 07/04/24 21:59 Not Given QDAY XOCHITL Protocol Metoclopramide HCl 5 mg 06/11/24 13:15 06/15/24 06:02 Metoclopramide Inj 5 Mg/Ml Vial 2 Ml IVP 07/11/24 13:14 5 mg Q6HR XOCHITL Administration Protocol Midodrine 10 mg 06/14/24 14:00 06/15/24 06:02 Midodrine 5 Mg Tablet GT 07/14/24 13:59 10 mg TID XOCHITL Administration Pantoprazole Sodium 40 mg 06/04/24 15:30 06/15/24 09:30 Pantoprazole Inj 40 Mg Vial IVP 07/04/24 15:29 40 mg QDAY XOCHITL Administration Pharmacy Consult 1 each 06/04/24 18:24 Pharmacy Renal Dose Adjustment 1 Ea XX 07/04/24 18:23 PRN PRN CONSULT Potassium Chloride 20 meq 06/16/24 09:00 Potassium Chloride 10% 20 Meq/15 Ml Udc GT 07/16/24 08:59 BID XOCHITL Sevelamer Carbonate 1.6 gm 06/11/24 17:30 06/15/24 09:30 Sevelamer Carbonate 0.8 Gm Packet (Non-Formulary) GT 07/11/24 17:29 1.6 gm TIDWM XOCHITL Administration Sodium Chloride 1 gm 06/14/24 13:15 06/15/24 09:30 Sodium Chloride 1 Gm Tablet GT 07/14/24 13:14 1 gm BID XOCHITL Administration Plan 73-year-old male with 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 Neuro: #Chronic encephalopathy #CVA with residual deficits Metabolic encephalopathy due to hypoxia Patient is nonverbal at baseline, per family at bedside he is normally somewhat interactive. Currently patient is responsive only to pain, opens eyes, does not track sounds. Patient became close to baseline, responds to loud sounds, does not follow commands or have purposeful movement. Patient became agitated during dialysis, sedated to maintain vent synchronicity. Patient no longer candidate for dialysis as the blood is too thick to pull out of veins -Monitor CVS: #Septic shock 2/ Acenetobacter baummani and enterobacter aerogenes pneumonia Patient started on levofloxacin based on previous cultures, dosed for acute kidney injury. -Close monitoring -Levophed, titrate as needed -Levofloxacin 750 mg IV x1, followed by Levofloxacin 500 mg IV q48h (06/04- 06/14) -Clindamycin 600mg IV q6h (started 06/07-06/11) -Follow-up blood cultures are negative #Bilateral LL PAD Physical exam revealed severe peripheral arterial disease with, minimal pulses felt at BL dorsalis pedis and posterior tibialis, with bluish discoloration of BL distal half of foot. -Patient is not a candidate for any surgical intervention due to DIC and not a candidate for antiplatelet as platelet count of 39 #Afib Patient developed afib with RVR prompting rapid response. Amio bolus given, drip completed. Worsening tachycardia during dialysis, resolved with 150mg bolus amiodorone x1. -amiodarone 200mg GT BID -telemonitoring Pulm: #Acute on chronic hypoxic respiratory failure #Aspiration pneumonia #ARDS Patient developed worsening hypoxia despite increasing FiO2 on the floors following massive aspiration. Chest x-ray shows significant bilateral pneumonia, more severe on the left side. Patient has significantly distended abdomen, present on lungs. ABG showed pH 7.18, pCO2 70, pO2 124. Vent settings changed to increase tidal volume and respiratory rate, repeat ABG showed pH 7.3, pCO2 57, pO2 69. Patient improved enough for downgrade to telemetry, was later upgraded back to ICU for worsening hypoxia, hypotension, afib with RVR. Patient continues to have high FiO2 requirements to maintain saturation. Tidal volume decreased from 450 to 380. After sedation discontinued, patient became hypoxic/hypertensive, initially managed with vent settings but required emergent bronchoscopy with lavage of bilateral lungs. Chest x-ray showed increasing fluid in lungs. Patient has elevated pressures on vent -Maintain vent settings, wean down FiO2 as tolerated -Lung protective vent strategies -Duoneb as needed -Antibiotic course completed -Diurese to remove excess fluids GI: #Transaminitis DDx Medication effect vs. severe acute illness Patient has had mild transaminitis during hospital stay. Slightly uptrending, patient on levaquin and amiodarone. Timing does not match rise in LFTs, could be contributing factor. Downtrending #PEG tube Patient has chronic PEG tube. Feeds have been held due to large bowel obstruction, now resolved. -Tube feeds, 20ml/hr Renal: #ATN Patient developed ATN due to ischemia in setting of hypotension. Patient had left femoral tri-flow cath placed for dialysis. Patient had difficulty with dialysis. On third day, blood was too thick to properly dialyze. Patient deemed to unstable for furhter dialysis by compounder sterile products. Family updated on patient status. Patient anuric. Bumex 3mg IV given x1 without urine output. Patient remains severely fluid overloaded. Patient started voiding with Bumex. -Started on Bumex 4mg GT BID -Will give albumin with Bumex to increase effectiveness -Not suitable candidate for dialysis -Unable to obtain labs #Hypokalemia Not monitoring daily labs. Patient diuresing with Bumex -Potassium 20 mEq GT BID #Hyponatremia Patient sodium downtrending before lab draws discontinued. Hypervolemic hyponatremia due to poor urinary output. -Diuresis -Salt tab 1gm GT BID #Hyperphosphetemia -calcium acetate TID and sevelamer increased to 1.6 g TID Endo: #DM Patient history -ISS Heme: #Thrombocytopenia due to DIC Patient has had mild thrombocytopenia, steadily worsening for several days. Recently downtrended to 47. No signs of thrombosis or hemorrhaging. DIC panel: PT 14.5, PTT 49, Fibrinogen 515, D-Dimer >3820. LDH elevated. Platelets down to 16 Transfused with 1 Unit PRBC Patient received platelet transfusions -Treat underlying conditions -Replace platelets if <20k #Leukocytosis Likely due to infection and reactive to patient's worsening overall status. -WBC 25.2 #Microcytic anemia Patient has chronic normocytic anemia, with multiple PRBC transfusion making it normocytic No signs of bleeding. ID: #Sepsis Procal [id number]. Fevers. Patient received Vancomycin and Zosyn previously. Blood cultures grew MRSA, sputum cultures grew Acinetobacter baumannii/haemol. Will adjust antibiotic dosage for reduced creatinine clearance -Levofloxacin 750 mg IV x1, followed by Levofloxacin 500 mg IV q48h (06/04- 06/14) -Clindamycin 600mg IV q6h (started 06/07-06/11) -Tylenol as needed for fevers -contact precautions Skin/MSK: #Deep tissue injury Patient has deep tissue injury to right upper back. -bandaged #Stage two pressure ulcer Patient has stage 2 pressure ulcer to right buttock. -bandaged #Dry gangrene of BL foot -Patient is not a candidate for any surgical procedure -Not a candidate for anti platelet as of low platelets #Ulceration of scrotum Patient unable to be turned regularly due to desaturations. -attempt to keep dry/clean ICU Health maintenance: Mechanical ventilation: Yes Sedation:No Diet: Tube feeds via PEG DVT ppx: SCDs GI ppx: Protonix Godinez: No IV lines: Peripheral IVs Central line: Femoral tri-flow- DC on 06/10 Arterial line: No Code status: DNR Plan of care discussed with my attending Dr. Garland. Jayjay Malagon MD PGY-1 Attending Provider Attestation/Addendum Patient seen and examined with above resident, Jayjay Malagon MD. I agree with the findings, assessment, and plan of care as documented except for any differences below. Patient continues to require vasopressor support and ventilatory status remains unchanged. Unable to maintain lung protective ventilation to poor pulmonary compliance. Patient continues to have significant volume overload and we are trying to diurese with use of Bumex at high dose. Patient remains a noncandidate for surgical intervention for his bilateral lower extremity gangrene nor is he a candidate for hemodialysis after continued assessment by nephrology. We are awaiting additional family members to come and visit the patient after my discussion with family on Sunday. Plan was to have them arrive today from [place]. However I have not seen any additional family numbers since yesterday. Will continue all care as desired by the family with limitations of course to ensure patient's comfort and with any functional limitations due to his overall candidacy for additional aggressive treatments. Maintain MAP goal above 65 and diuresis to optimize fluid status which may help with his noncompliance. Patient has completed course of appropriate antibiotics with Levaquin given growth of Acinetobacter baumannii. Patient remains afebrile at this point. Total critical care time: I personally spent 35 minutes for review of physiologic parameters, directing plan of care throughout the day, and coordination of care with other subspecialties. This is exclusive of time spent teaching housestaff or performing any separate billable procedures. Patient continues to require critical care services for acute hypoxic respiratory failure in the setting of healthcare associated pneumonia and requirement for mechanical ventilation, pressor requirement for septic shock. Patient remains at high risk for mortality with poor prognosis overall given prior comorbidities and acute insult.
[2024-06-15] MEDS: POTASSIUM CHLORIDE 10% 20 MEQ/15 ML UDC 40 MEQ GT (12:18)
[2024-06-15] MEDS: Norepinephrine/D5W 8mg/250ml 8 MG/250 ML BAG 21.03 MG IV (12:23)
--- NOTE | 2024-06-15 15:36 | ESPR_ITS ---
Documentation for date of: 06/15/24 Subjective Subjective Interval history: Mechanically ventilated through tracheostomy Enteral feeding remains a challenge Exam Vital Signs Temp Pulse Resp BP Pulse Ox O2 Del Method O2 Flow Rate 99.6 F 80 30 H 116/53 L 98 Mechanical Ventilation 90 06/15/24 12:00 06/15/24 15:07 06/15/24 14:45 06/15/24 15:07 06/15/24 15:07 06/15/24 12:00 06/07/24 17:00 FiO2 65 06/15/24 15:07 Routine Respiratory Exam Comments: Mechanically ventilated Routine Abdominal Exam Comments: No drainage at the PEG site Objective Labs 06/13/24 05:15 06/14/24 05:50 Labs: Laboratory Results - last 24 hr 06/14/24 09:30 WBC Cancelled RBC Cancelled Hgb Cancelled Hct Cancelled MCV Cancelled MCH Cancelled MCHC Cancelled RDW Std Deviation Cancelled Plt Count Cancelled Neut % (Auto) Cancelled Lymph % (Auto) Cancelled [place] % (Auto) Cancelled Eos % (Auto) Cancelled Baso % (Auto) Cancelled Neut # (Auto) Cancelled Lymph # (Auto) Cancelled [place] # (Auto) Cancelled Eos # (Auto) Cancelled Baso # (Auto) Cancelled Immature Gran # (Auto) Cancelled Absolute Nucleated RBC Cancelled Immature Gran % Cancelled Nucleated RBC % Cancelled Impressions Impression: # Gastric motility disorder # Gastric residue remains an issue Continue current management ABG Interpretation ABG results: 05/31/24 05/31/24 05/31/24 09:33 14:33 16:21 ABG pH 7.25 L 7.18 L* 7.30 L D ABG pCO2 68 H 78 H* D 57 H D ABG pO2 88 124 H D 69 L D ABG HCO3 30 H 29 H 28 H ABG O2 Saturation 96 99 H 94 ABG Base Excess 2 -1 1 VBG pH VBG pCO2 VBG pO2 VBG Base Excess 06/01/24 06/02/24 06/04/24 07:51 18:15 16:07 ABG pH 7.49 H D 7.47 H ABG pCO2 37 D 44 ABG pO2 49 L* D 48 L* ABG HCO3 28 H 32 H ABG O2 Saturation 89 L 86 L ABG Base Excess 5 H 7 H VBG pH 7.45 VBG pCO2 31 L VBG pO2 64 H VBG Base Excess -2 06/06/24 06/07/24 10:24 05:12 ABG pH 7.30 L ABG pCO2 47 ABG pO2 56 L* ABG HCO3 23 ABG O2 Saturation 83 L ABG Base Excess -3 VBG pH 7.35 VBG pCO2 46 D VBG pO2 52 VBG Base Excess 0 Assessment & Plan A&P Narrative 73-year-old male with past medical history of 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 1. A-fib with RVR, new onset 2. Hypokalemia ?Patient developed A-fib with RVR on 06/02/2024 ?Initial EKG showed on admission sinus tachycardia. ?Repeat EKG on 05/31/2024 that showed sinus rhythm ?EKG on 06/02/2024 showed A-fib with RVR and at this time patient's potassium was 2.9. ?Patient is currently DNR/DNI as per family's wishes ? Patient' family did not want any cardioversion at this time. Plan: ?Continue amiodarone drip for now and add amiodarone 200 p.o BID ?Recommend start patient on Eliquis 5 mg twice daily ? Recommend to keep potassium magnesium above 4 and 2 respectively to avoid any further arrhythmias ?Recommend primary care team to have goals of care discussion 06/10/2024: Patient is on mechanical ventilation at the present point of time. Family again changed his status to limited code and wanted to Patient continues to be in A-fib overnight Continue amiodarone for now. Keep potassium greater than 4 and magnesium greater than 2.0 at all times. Unable to do dialysis as per nephrology and primary critical care team as well as nephrology team did discuss goals of care with the family but the patient is still continues to be a limited code with resuscitation except for chest compression. Patient's platelets are also at 17,000. no heprin drip for now Overall patient has multiorgan dysfunction and deteriorating clinical condition over the last couple of days. At the request of the critical care team I did also speak to the son Mr. Muniz for almost 20 to 30 minutes to update the patient about the workup done till now, the treatment as well as the prognosis for the patient in detail. Discussed regarding the goals of care including comfort care in detail and answered all questions to their satisfaction. Son informed me that they will come back with their entire family tomorrow and will let us know their decision. Patient is on pressors and sedation 3. Acute on chronic hypoxic respiratory failure 4. Bilateral community-acquired pneumonia versus hospital-acquired pneumonia ? Continue management as per primary care team 5. Large bowel obstruction ?Continue management as per primary care team 6. CVA with residual deficits 7. Chronic PEG tube and tracheostomy ?Continue current management per primary care team 8. DM2 ? Continue current management as per primary care team 9. Bilateral upper extremity DVTs ? Continue current management as per primary care team 10. Anxiety 11. Depression ? Continue current management as per primary care team 12. Recurrent UTIs ? Continue current management as per primary care team There is a high probability of sudden, clinically significant or life threatening deterioration in the patient condition which required the highest level of physician preparedness to intervene urgently. I have personally spent total of 65 minutes of critical care time yesterday, exclusive of time spent on any procedures, in evaluation and management of this critically ill patient. Management of rest of the medical conditions as per primary team and other consultants. Thank you for the consult and allowing me to participate in the care of the patient. Cardiology will continue to follow. Kit Ho M.D. Interventional Cardiology Time Spent With Patient Time: Total time spent is greater than 50% in coordination of care (as documented) at patient's floor/unit and/or counseling patient:
[2024-06-16] VITALS (110 sets, daily range): BP systolic 90–131; BP diastolic 35–78; PULSE 79–94; RESP 18–36; TEMP 36.2–37.2; O2SAT 81–100
[2024-06-16] MEDS: METOCLOPRAMIDE INJ 5 MG/ML VIAL 2 ML IVP ×4 (00:04→18:20)
[2024-06-16] MEDS: Norepinephrine/D5W 8mg/250ml 8 MG/250 ML BAG 23.659 MG IV (00:29)
[2024-06-16] MEDS: MIDODRINE 5 MG TABLET 10 MG GT ×3 (05:46→21:33)
[2024-06-16] MEDS: BUMETANIDE 0.5 MG TABLET 4 MG GT ×2 (08:27→21:33)
[2024-06-16] MEDS: POTASSIUM CHLORIDE 10% 20 MEQ/15 ML UDC GT ×2 (08:27→21:33)
[2024-06-16] MEDS: SODIUM CHLORIDE 1 GM TABLET GT ×2 (08:27→21:34)
[2024-06-16] MEDS: SEVELAMER CARBONATE 0.8 GM PACKET (NON-FORMULARY) 1.6 GM GT ×3 (08:27→18:20)
[2024-06-16] MEDS: Ferrous Sulfate 300 MG/5 ML UDC PO (08:27)
[2024-06-16] MEDS: CALCIUM ACETATE 667 MG TABLET GT ×3 (08:27→18:21)
[2024-06-16] MEDS: PANTOPRAZOLE INJ 40 MG VIAL IVP (08:28)
[2024-06-16] MEDS: AMIODARONE HCL 200 MG TABLET GT ×2 (08:28→21:33)
[2024-06-16] MEDS: Norepinephrine/D5W 8mg/250ml 8 MG/250 ML BAG 26.288 MG IV (11:29)
--- NOTE | 2024-06-16 12:11 | PD.IMPROG ---
Documentation for date of: 06/16/24 Subjective Subjective Interval history: Enteral feeding remains a challenge Gastric motility disorder and gastroparesis in spite of regular Exam Vital Signs Temp Pulse Resp BP Pulse Ox O2 Del Method O2 Flow Rate 98.0 F 82 28 H 131/50 H 97 Mechanical Ventilation 90 06/16/24 08:00 06/16/24 11:29 06/16/24 11:00 06/16/24 11:29 06/16/24 11:00 06/16/24 08:00 06/07/24 17:00 FiO2 70 06/16/24 10:11 Objective Labs 06/13/24 05:15 06/14/24 05:50 Impressions Impression: # Failure to thrive requiring PEG placement Increase PEG feeding as tolerated ABG Interpretation ABG results: 05/31/24 05/31/24 05/31/24 09:33 14:33 16:21 ABG pH 7.25 L 7.18 L* 7.30 L D ABG pCO2 68 H 78 H* D 57 H D ABG pO2 88 124 H D 69 L D ABG HCO3 30 H 29 H 28 H ABG O2 Saturation 96 99 H 94 ABG Base Excess 2 -1 1 VBG pH VBG pCO2 VBG pO2 VBG Base Excess 06/01/24 06/02/24 06/04/24 07:51 18:15 16:07 ABG pH 7.49 H D 7.47 H ABG pCO2 37 D 44 ABG pO2 49 L* D 48 L* ABG HCO3 28 H 32 H ABG O2 Saturation 89 L 86 L ABG Base Excess 5 H 7 H VBG pH 7.45 VBG pCO2 31 L VBG pO2 64 H VBG Base Excess -2 06/06/24 06/07/24 10:24 05:12 ABG pH 7.30 L ABG pCO2 47 ABG pO2 56 L* ABG HCO3 23 ABG O2 Saturation 83 L ABG Base Excess -3 VBG pH 7.35 VBG pCO2 46 D VBG pO2 52 VBG Base Excess 0 Assessment & Plan A&P Narrative 73-year-old male with past medical history of 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 1. A-fib with RVR, new onset 2. Hypokalemia ?Patient developed A-fib with RVR on 06/02/2024 ?Initial EKG showed on admission sinus tachycardia. ?Repeat EKG on 05/31/2024 that showed sinus rhythm ?EKG on 06/02/2024 showed A-fib with RVR and at this time patient's potassium was 2.9. ?Patient is currently DNR/DNI as per family's wishes ? Patient' family did not want any cardioversion at this time. Plan: ?Continue amiodarone drip for now and add amiodarone 200 p.o BID ?Recommend start patient on Eliquis 5 mg twice daily ? Recommend to keep potassium magnesium above 4 and 2 respectively to avoid any further arrhythmias ?Recommend primary care team to have goals of care discussion 06/10/2024: Patient is on mechanical ventilation at the present point of time. Family again changed his status to limited code and wanted to Patient continues to be in A-fib overnight Continue amiodarone for now. Keep potassium greater than 4 and magnesium greater than 2.0 at all times. Unable to do dialysis as per nephrology and primary critical care team as well as nephrology team did discuss goals of care with the family but the patient is still continues to be a limited code with resuscitation except for chest compression. Patient's platelets are also at 17,000. no heprin drip for now Overall patient has multiorgan dysfunction and deteriorating clinical condition over the last couple of days. At the request of the critical care team I did also speak to the son Mr. Muniz for almost 20 to 30 minutes to update the patient about the workup done till now, the treatment as well as the prognosis for the patient in detail. Discussed regarding the goals of care including comfort care in detail and answered all questions to their satisfaction. Son informed me that they will come back with their entire family tomorrow and will let us know their decision. Patient is on pressors and sedation 3. Acute on chronic hypoxic respiratory failure 4. Bilateral community-acquired pneumonia versus hospital-acquired pneumonia ? Continue management as per primary care team 5. Large bowel obstruction ?Continue management as per primary care team 6. CVA with residual deficits 7. Chronic PEG tube and tracheostomy ?Continue current management per primary care team 8. DM2 ? Continue current management as per primary care team 9. Bilateral upper extremity DVTs ? Continue current management as per primary care team 10. Anxiety 11. Depression ? Continue current management as per primary care team 12. Recurrent UTIs ? Continue current management as per primary care team There is a high probability of sudden, clinically significant or life threatening deterioration in the patient condition which required the highest level of physician preparedness to intervene urgently. I have personally spent total of 65 minutes of critical care time yesterday, exclusive of time spent on any procedures, in evaluation and management of this critically ill patient. Management of rest of the medical conditions as per primary team and other consultants. Thank you for the consult and allowing me to participate in the care of the patient. Cardiology will continue to follow. Kit Ho M.D. Interventional Cardiology Time Spent With Patient Time: Total time spent is greater than 50% in coordination of care (as documented) at patient's floor/unit and/or counseling patient:
[2024-06-16] MEDS: INSULIN HUM REGULAR 1 UNIT/0.01 ML (PER UNIT) SC ×2 (12:16→18:46)
--- NOTE | 2024-06-16 12:20 | ESPR_ITS ---
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 Patient recently came to the ED on 05/24/2024 with similar complaints and received enema following which patient had a bowel movement and transferred back to the facility. Later patient was still found to have constipation for which Dr. Durant was consulted and patient received different bowel regimens and GoLytely with no much effect on constipation. As the patient is having progressive severe abdominal distention with constipation despite bowel regimens and GoLytely he was brought to the hospital today. No history of fever, vomiting. Dr. Durant was consulted and he tried to manually disimpact the stools but unsuccessful. Later Dr Cramer was consulted. 06/10/2024: The patient was examined at the bedside this morning. He continues to be in respiratory distress, RR 30-35, saturating greater than 88% on FiO2 70%. He continues to be on Levophed drip at 0.21. Blood works were done by withdrawing the blood from right femoral hemodialysis catheter. Physical examination was significant for blisters of size measuring up to 2 into 3 cm on left lower extremity, and bluish discoloration of bilateral lower extremity distal half of bilateral foot. Peripheral pulses were very minimally palpable, and the patient is not a candidate for any surgical procedure given the platelet count of 18. Medicine labs are significant for white count trending down to 19.7, hemoglobin 8.6, platelet 28, PT 13.6, INR 1.3, PTT 43.9, and fibrinogen 386. Chemistry revealed sodium 132, potassium 3.3, was repleted with 20 mEq of oral KCl, BUN 81, creatinine 4.0, blood sugar 148, phosphorus 5.5 and we will continue with calcium acetate and sevelamer. Liver enzymes trending down. We will continue with 3 mg IV Bumex twice daily as patient has been bringing out some urine, approximately 500 cc in the entire daytime. Updates were given to the family members. We removed right femoral hemodialysis catheter as the patient is not a candidate for hemodialysis at this point, and it would only lead to further complications. 06/11/24: The patient was examined and evaluated at the bedside this morning. Overnight, it was difficult to get access to PIV lines, and family members were called and Goal of care discussion was done. Patient decision maker Meli wished to proceed with DNR/DNI with no aggressive intervention, POLST was signed as a witness with charge nurse. The patient was desaturating to 70s multiple times, and was requiring ventilation through Ambu bag. Multiple suctioning was required before it would improve oxygen saturation. Labs were significant for white count of 18.2, hemoglobin 6.6 and was ordered 1 unit of PRBC, platelet count 16 and 1 unit of platelet was ordered. Potassium was 3.5 and 20 mEq of oral KCl was given via PEG tube. The patient was bringing out some urine, and was started on Bumex drip 1 mg/h. As the phosphorus was 6.3 we increased the dose of sevelamer carbonate to 1600 Mg p.o. 3 times daily. 06/12/2024: The patient was examined and evaluated at the bedside this morning. Overnight, the patient's O2 saturation was trending down so was bagged by ambu bag, patient bringing adequate urine but unable to measure. Multiple attempts were done to withdraw labs but was unsuccessful. 06/13/2024: The patient was examined and evaluated at the bedside this morning again. No any active overnight events. He was saturating 92% on Fio2 80%. WBC trended up to 25.1, Hb 7.1, with improvement in platlet to 39. Na 126, and K 3.0, repleted with 40 MEQ KCL GT. Renal panel consistent for ATN. Goals of care was discussed with the entire family members and they wished do proceed with current medical management. 06/14/2024: Patient was seen and examined at bedside. No overnight events. Difficulty drawing labs this morning due to DIC, patient blood rapidly clotting in vials. Future lab draws discontinued, will order if needed. Cyanosis progressing. Patient remains minimally responsive. Patient is making some amount of urine, scheduled Bumex ordered. Dilauded ordered for patient pain/discomfort. 06/15/2024: Patient seen and examined at bedside. No labs drawn this morning. Patient had 3 unmeasured but large urinary voids overnight. Will continue with Bumex, will give with albumin for increased diuresis. potassium 20mEq BID added due to continuous diuresis. Patient minimally responsive. Decreased levophed today. Pressures on vent remain elevated, peak pressure >40 and plateau pressure 39. 06/16/2024: Patient seen and examined at bedside. No lab draws. Patient had 3 unmeasured but moderate voids overnight. Patient receiving Bumex. Patient received potassium and salt tablets. No change in mentation. Cyanosis and gangrene of left foot not advancing. Pressor requirements unchanged. Exam Vital Signs Temp Pulse Resp BP Pulse Ox O2 Del Method O2 Flow Rate 98.0 F 82 28 H 131/50 H 97 Mechanical Ventilation 90 06/16/24 08:00 06/16/24 11:29 06/16/24 11:00 06/16/24 11:29 06/16/24 11:00 06/16/24 08:00 06/07/24 17:00 FiO2 70 06/16/24 10:11 Narrative Exam PE: Gen: Alert, poorly responsive. Tracheostomy. HEENT: NCAT, anicteric conjunctivae. Dry mucous membranes. Left ear cyanotic. CVS: No M/R/G. Afib Resp: Coarse lung sounds. Rhonchi and wheezing all lung ansari. Abd: Abdomen distended, soft. PEG tube. MSK: Good ROM in BUE & BLE. Bilateral lower and upper extremity 4+ edema with anasarca. Weeping of upper extremities bilaterally. Edematous scrotum with ulcerations. Left and right foot cyanosis, progressing up to distal half of BL foot, Peripheral pulses very much feeble on dorsal pedis and posterior femoral. Left toes necrosis. Skin tear left kulkarni. Neuro: CN II-XII grossly intact. Baseline nonverbal. Objective Labs 06/13/24 05:15 06/14/24 05:50 ABG Interpretation ABG results: 05/31/24 05/31/24 05/31/24 09:33 14:33 16:21 ABG pH 7.25 L 7.18 L* 7.30 L D ABG pCO2 68 H 78 H* D 57 H D ABG pO2 88 124 H D 69 L D ABG HCO3 30 H 29 H 28 H ABG O2 Saturation 96 99 H 94 ABG Base Excess 2 -1 1 VBG pH VBG pCO2 VBG pO2 VBG Base Excess 06/01/24 06/02/24 06/04/24 07:51 18:15 16:07 ABG pH 7.49 H D 7.47 H ABG pCO2 37 D 44 ABG pO2 49 L* D 48 L* ABG HCO3 28 H 32 H ABG O2 Saturation 89 L 86 L ABG Base Excess 5 H 7 H VBG pH 7.45 VBG pCO2 31 L VBG pO2 64 H VBG Base Excess -2 06/06/24 06/07/24 10:24 05:12 ABG pH 7.30 L ABG pCO2 47 ABG pO2 56 L* ABG HCO3 23 ABG O2 Saturation 83 L ABG Base Excess -3 VBG pH 7.35 VBG pCO2 46 D VBG pO2 52 VBG Base Excess 0 Quality Measures Quality Measures VTE prophylaxis Advance care planning discussed with:: spouse and child Assessment & Plan Assessment Current Active Medications: Generic Name Dose Route Start Last Admin Trade Name Freq PRN Reason Stop Dose Admin Acetaminophen 650 mg 06/04/24 15:09 06/04/24 16:40 Acetaminophen Lindsey 325 Mg/10 Ml Udc GT 07/04/24 15:08 650 mg Q6HR PRN Administration Pain Or Fever > 100.4 Protocol Albuterol/Ipratropium 3 ml 06/04/24 15:33 Albuterol/Ipratropium (Duoneb) Rt Lindsey 3 Ml Nebu INH 07/04/24 15:32 Q2HR PRN SHORTNESS OF BREATH OR WHEEZE Amiodarone HCl 200 mg 06/05/24 21:00 06/16/24 08:28 Amiodarone Hcl 200 Mg Tablet GT 07/05/24 20:59 200 mg BID XOCHITL Administration Artificial Tears 0 drop 06/08/24 19:44 06/08/24 20:14 Artificial Tears 225 Drop/15 Ml Btl BOTH EYES 07/08/24 19:43 1 drop PRN PRN Administration TO KEEP EYES MOIST Bumetanide 4 mg 06/14/24 21:00 06/16/24 08:27 Bumetanide 0.5 Mg Tablet GT 07/14/24 20:59 4 mg BID XOCHITL Administration Calcium Acetate 667 mg 06/08/24 08:45 06/16/24 12:01 Calcium Acetate 667 Mg Tablet GT 07/04/24 18:44 667 mg TIDWM XOCHITL Administration Dextrose 25 ml 06/04/24 15:32 Dextrose 50%-Water Inj 50 Ml Syringe IV 07/04/24 15:31 Q15MIN PRN BG 50-70 responsive npo pt Dextrose 50 ml 06/04/24 15:32 Dextrose 50%-Water Inj 50 Ml Syringe IV 07/04/24 15:31 Q15MIN PRN BG <50 OR BG <70 & pt unresponsive Ferrous Sulfate 300 mg 06/11/24 17:30 06/16/24 08:27 Ferrous Sulfate 300 Mg/5 Ml Udc PO 07/11/24 17:29 300 mg QDAY XOCHITL Administration Heparin Sodium (Porcine) 5,000 unit 06/04/24 22:00 06/06/24 06:18 Heparin Sod Inj 5000 Unit/Ml Vial SC 06/18/24 21:59 5,000 unit Q8HR XOCHITL Administration Heparin Sodium (Porcine) 2,200 unit 06/05/24 17:03 06/07/24 08:55 Heparin Sod Inj 1000 Unit/Ml Vial 10 Ml INDWELLCAT 06/19/24 17:02 2,200 unit PRN PRN Administration DIALYSIS Hydromorphone HCl 0.25 mg 06/14/24 13:05 Hydromorphone Inj 2 Mg/Ml Vial IVP 06/19/24 13:04 Q3HR PRN PAIN Protocol Norepinephrine/Dextrose 8 mg in 250 mls @ 6.572 mls/hr 06/03/24 11:37 06/16/24 12:12 Levophed In D5w 8mg/250ml IV 07/03/24 11:36 0.16 mcg/kg/min .Q24H PRN 21.03 mls/hr PER PROTOCOL Titration Protocol 0.05 MCG/KG/MIN Albumin Human 25 gm in 100 mls @ 100 mls/min 06/05/24 17:05 06/07/24 08:32 Albuminar-25 Ivpb IV Infused PRN PRN Infusion DIALYSIS Propofol 1,000 mg in 100 mls @ 2.025 mls/hr 06/06/24 08:55 06/08/24 13:28 Diprivan Ivpb IV 07/06/24 08:54 0 mcg/kg/min .Q24H PRN 0 mls/hr PER PROTOCOL Titration Protocol 5 MCG/KG/MIN Insulin Human Regular 0 unit 06/04/24 18:00 06/16/24 12:16 Insulin Hum Regular 1 Unit/0.01 Ml (Per Unit) SC 07/04/24 17:59 1 unit Q6HR XOCHITL Administration Protocol Lactulose 20 gm 06/08/24 09:00 06/09/24 08:54 Lactulose Syrup 20 Gm/30 Ml Udc GT 07/04/24 21:59 Not Given QDAY XOCHITL Protocol Metoclopramide HCl 5 mg 06/11/24 13:15 06/16/24 12:01 Metoclopramide Inj 5 Mg/Ml Vial 2 Ml IVP 07/11/24 13:14 5 mg Q6HR XOCHITL Administration Protocol Midodrine 10 mg 06/14/24 14:00 06/16/24 05:46 Midodrine 5 Mg Tablet GT 07/14/24 13:59 10 mg TID XOCHITL Administration Pantoprazole Sodium 40 mg 06/04/24 15:30 06/16/24 08:28 Pantoprazole Inj 40 Mg Vial IVP 07/04/24 15:29 40 mg QDAY XOCHITL Administration Pharmacy Consult 1 each 06/04/24 18:24 Pharmacy Renal Dose Adjustment 1 Ea XX 07/04/24 18:23 PRN PRN CONSULT Potassium Chloride 20 meq 06/16/24 09:00 06/16/24 08:27 Potassium Chloride 10% 20 Meq/15 Ml Udc GT 07/16/24 08:59 20 meq BID XOCHITL Administration Sevelamer Carbonate 1.6 gm 06/11/24 17:30 06/16/24 12:01 Sevelamer Carbonate 0.8 Gm Packet (Non-Formulary) GT 07/11/24 17:29 1.6 gm TIDWM XOCHITL Administration Sodium Chloride 1 gm 06/14/24 13:15 06/16/24 08:27 Sodium Chloride 1 Gm Tablet GT 07/14/24 13:14 1 gm BID XOCHITL Administration Plan 73-year-old male with 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 Neuro: #Chronic encephalopathy #CVA with residual deficits Metabolic encephalopathy due to hypoxia Patient is nonverbal at baseline, per family at bedside he is normally somewhat interactive. Currently patient is responsive only to pain, opens eyes, does not track sounds. Patient became close to baseline, responds to loud sounds, does not follow commands or have purposeful movement. Patient became agitated during dialysis, sedated to maintain vent synchronicity. Patient no longer candidate for dialysis as the blood is too thick to pull out of veins -Monitor CVS: #Septic shock 2/2 Acenetobacter baummani and enterobacter aerogenes pneumonia Patient started on levofloxacin based on previous cultures, dosed for acute kidney injury. -Close monitoring -Levophed, titrate as needed -Levofloxacin 750 mg IV x1, followed by Levofloxacin 500 mg IV q48h (06/04- 06/14) -Clindamycin 600mg IV q6h (started 06/07-06/11) -Follow-up blood cultures are negative #Bilateral LL PAD Physical exam revealed severe peripheral arterial disease with, minimal pulses felt at BL dorsalis pedis and posterior tibialis, with bluish discoloration of BL distal half of foot. -Patient is not a candidate for any surgical intervention due to DIC and not a candidate for antiplatelet as platelet count of 39 #Afib Patient developed afib with RVR prompting rapid response. Amio bolus given, drip completed. Worsening tachycardia during dialysis, resolved with 150mg bolus amiodorone x1. -amiodarone 200mg GT BID -telemonitoring Pulm: #Acute on chronic hypoxic respiratory failure #Aspiration pneumonia #ARDS Patient developed worsening hypoxia despite increasing FiO2 on the floors following massive aspiration. Chest x-ray shows significant bilateral pneumonia, more severe on the left side. Patient has significantly distended abdomen, present on lungs. ABG showed pH 7.18, pCO2 70, pO2 124. Vent settings changed to increase tidal volume and respiratory rate, repeat ABG showed pH 7.3, pCO2 57, pO2 69. Patient improved enough for downgrade to telemetry, was later upgraded back to ICU for worsening hypoxia, hypotension, afib with RVR. Patient continues to have high FiO2 requirements to maintain saturation. Tidal volume decreased from 450 to 380. After sedation discontinued, patient became hypoxic/hypertensive, initially managed with vent settings but required emergent bronchoscopy with lavage of bilateral lungs. Chest x-ray showed increasing fluid in lungs. Patient has elevated pressures on vent -Maintain vent settings, wean down FiO2 as tolerated -Lung protective vent strategies -Duoneb as needed -Antibiotic course completed -Diurese to remove excess fluids GI: #Transaminitis DDx Medication effect vs. severe acute illness Patient has had mild transaminitis during hospital stay. Slightly uptrending, patient on levaquin and amiodarone. Timing does not match rise in LFTs, could be contributing factor. Downtrending #PEG tube Patient has chronic PEG tube. Feeds have been held due to large bowel obstruction, now resolved. -Tube feeds, 20ml/hr Renal: #ATN Patient developed ATN due to ischemia in setting of hypotension. Patient had left femoral tri-flow cath placed for dialysis. Patient had difficulty with dialysis. On third day, blood was too thick to properly dialyze. Patient deemed to unstable for furhter dialysis by audio visual director. Family updated on patient status. Patient anuric. Bumex 3mg IV given x1 without urine output. Patient remains severely fluid overloaded. Patient started voiding with Bumex. -Started on Bumex 4mg GT BID -Will give albumin with Bumex to increase effectiveness -Not suitable candidate for dialysis -Unable to obtain labs #Hypokalemia Not monitoring daily labs. Patient diuresing with Bumex -Potassium 20 mEq GT BID #Hyponatremia Patient sodium downtrending before lab draws discontinued. Hypervolemic hyponatremia due to poor urinary output. -Diuresis -Salt tab 1gm GT BID #Hyperphosphetemia -calcium acetate TID and sevelamer increased to 1.6 g TID Endo: #DM Patient history -ISS Heme: #Thrombocytopenia due to DIC Patient has had mild thrombocytopenia, steadily worsening for several days. Recently downtrended to 47. No signs of thrombosis or hemorrhaging. DIC panel: PT 14.5, PTT 49, Fibrinogen 515, D-Dimer >3820. LDH elevated. Platelets down to 16 Transfused with 1 Unit PRBC Patient received platelet transfusions -Treat underlying conditions -Replace platelets if <20k #Leukocytosis Likely due to infection and reactive to patient's worsening overall status. -WBC 25.2 #Microcytic anemia Patient has chronic normocytic anemia, with multiple PRBC transfusion making it normocytic No signs of bleeding. ID: #Sepsis Procal [id number]. Fevers. Patient received Vancomycin and Zosyn previously. Blood cultures grew MRSA, sputum cultures grew Acinetobacter baumannii/haemol. Will adjust antibiotic dosage for reduced creatinine clearance -Levofloxacin 750 mg IV x1, followed by Levofloxacin 500 mg IV q48h (06/04- 06/14) -Clindamycin 600mg IV q6h (started 06/07-06/11) -Tylenol as needed for fevers -contact precautions Skin/MSK: #Deep tissue injury Patient has deep tissue injury to right upper back. -bandaged #Stage two pressure ulcer Patient has stage 2 pressure ulcer to right buttock. -bandaged #Dry gangrene of BL foot -Patient is not a candidate for any surgical procedure -Not a candidate for anti platelet as of low platelets #Ulceration of scrotum Patient unable to be turned regularly due to desaturations. -attempt to keep dry/clean ICU Health maintenance: Mechanical ventilation: Yes Sedation:No Diet: Tube feeds via PEG DVT ppx: SCDs GI ppx: Protonix Godinez: No IV lines: Peripheral IVs Central line: Femoral tri-flow- DC on 06/10 Arterial line: No Code status: DNR Plan of care discussed with my attending Dr. Garland. Jayjay Malagon MD PGY-1 Attending Provider Attestation/Addendum Patient seen and examined with above resident, Jayjay Malagon MD. I agree with the findings, assessment, and plan of care as documented except for any differences below. Patient continues to have high airway pressures though intermittently shows improvement. Ongoing aggressive diuresis with Bumex. Patient completed antibiotic course of has no evidence of new infection. Patient with significant renal failure though he is making urine output. We have limited labs at the discretion of the patient's family to avoid any additional discomfort given his overall poor prognosis. Patient's family has not been at bedside and we are awaiting additional members to arrive from [place] to further discuss potential transition to comfort care versus ongoing aggressive measures. Patient stable on vasopressor support and we will determine availability of long-term acute care if this is the route patient's family has decided upon after further discussions in the coming days. Patient does have significant inability to undergo hemodialysis and is not a surgical candidate for amputation of areas of gangrene on bilateral forefoot. No evidence of infection in these areas at this time: I suspect autoamputation will likely occur. We have ensured the patient is going to receive pain medications as his mentation is difficult to discern if he has improved or not this seems to be his baseline after historical neurologic injury. Total critical care: I personally spent 30 minutes for review of physiologic parameters, directing plan of care throughout the day, coordination of care with other specialists. This is exclusive of time spent teaching housestaff or performing separate billable procedures. Patient continues to require critical care services for acute on chronic hypoxic respiratory failure and distributive/septic shock. Patient continues to be at high risk for mortality and has poor prognosis. Patient requires close monitoring only available in the intensive care setting.
--- NOTE | 2024-06-16 12:53 | PC.SS ---
Update: Patient is Trach/PEG. Patient remains on pressor support. Gangrene present in left foot.
--- NOTE | 2024-06-16 15:53 | PD.NEPHPROG ---
Documentation for date of: 06/16/24 Subjective Subjective Interval history: Interval history: The patient is a 73-year-old male with previous medical history of CVA, severe cognitive deficit, chronic PEG tube and tracheostomy placement, hyperlipidemia, diabetes mellitus, recurrent UTIs, depression, anxiety, upper extremity bilateral DVT who is a subacute facility resident. He was brought to the hospital due to constipation and abdominal distention for 5 days. Earlier he had similar problems and received enema, had a bowel movement and was transferred back to the facility. He had a manual disimpaction and copious amount of soft stools was evacuated by Dr. Cramer. Rectal tube was placed. Later in admission patient had developed fever, became tachycardic, tachypneic. Imaging showed bilateral pneumonia with continued to worsen, he was started on fluids. He was not able to maintain MAP more than 65, was started on Levophed. Also, EKG showed A-fib with RVR and was started on amiodarine drip. He continued to have multiple bowel movements. His labs showed hypokalemia and hypernatremia. His labs throughout admissionshowed uptrending WBC, hypernatremia, persistent hypokalemia and rapidly declining kidney functions. ICU team had a conversation with patient's family over regarding goals of care, patient's family decided to proceed with full treatment but not to proceed with chest compressions in case of cardiac arrest, patient is limited code. Quality Assurance Tester Dr. Reed was consulted due to ZACH and electrolyte abnormalities treaent and management. 06/05/2024: Patient was seen and examined by the bedside in the ICU. Saturating in the low 90s on FiO2 70%. Continues to require Levophed support. Labs showed sodium 151, potassium 2.9, chloride 113, bicarb 21.3, BUN 57, creatinine 3.2, EGFR 20, glucose 122, corrected calcium 8.4, AST 209, ALT 78, albumin 2.4. Due to hemodynamic instability and patient continuing to require Levophed, will hold off dialysis for today and will try to correct the electrolyte abnormalities and start free water flushes at 100 mL/h. Repeat renal panel showed sodium 150, potassium 3.5, chloride 113, BUN 58, creatinine 3.4, EGFR 18. 06/06/2024: Patient seen and examined at the bedside in the ICU. Today patient opens eyes to the verbal stimulation, but does not follow the objects or follow commands, continues to have rotatory nystagmus and left-sided gaze fixation. Yesterday patient's family decided to proceed with dialysis, dialysis treatment was ended early due to catheter not functioning, after attempting a bowel flush both ports remains sluggish. Dialysis session was stopped. Blood in the arterial line returned but blood and the venous line clotted was unable to return. CBC stat showed hemoglobin 7.3, hemoglobin earlier this day was 8.0. Today patient had a repeat dialysis session, 1 L of fluid was removed. A.m. labs showed hemoglobin 7.4, hematocrit 21.2, platelets 45, INR 1.4, fibrinogen 515, D-dimer more than 3820. Sodium 143, potassium 3.0, BUN 39, creatinine 2.1, lactic acid 3.4. 06/07/2024: Patient seen and examined at bedside in ICU, unable to tolerate dialysis, patient was given IV albumin, blood pressure does not tolerate dialysis treatment. Patient was able to complete dialysis yesterday, had about 804 mL removed, was given 1 unit of IV albumin. Patient's labs reviewed, show WBC 14.2, RBC 2.27, hemoglobin 6.6, hematocrit 18.7, platelet count 20,000, sodium 141, potassium 3.5, bicarb 19.7, BUN 54, creatinine 3.2, GFR 20, total bilirubin 1.7 AST 167 ALT 99, alk phos 188. Patient has poor prognosis, is unable to tolerate dialysis, recommended ICU team to discuss goals of care with family. 06/08/2024: Patient seen and examined at bedside in ICU. Yesterday was not able to unable to tolerate dialysis. Labs show WBC 17.9, hemoglobin 8.4, platelets 17, sodium 138, potassium 2.2, BUN 66, creatinine 3.4, EGFR 18. Patient is not a candidate for a dialysis due hemodynamic instability and developing DIC. Will continue to monitor, patient's prognosis remains poor. 06/09/2024 patient currently seen in ICU. Remains on the ventilator. Labs reviewed. unable to do dialysis due to hemodynamic instability, platelet count of 17,000 and extremely thick blood which is clotting of the dialyzer's. Cannot do heparin drip due to thrombocytopenia. Suspect patient in DIC. Prognosis remains poor. Plan of care discussed with Dr. Garland and ICU team. 06/16/2024 patient currently seen in ICU. Remains on ventilator, nonresponsive. Urine output very minimal. Unfortunately cannot do dialysis due to hemodynamic instability and clotting of dialyzer's. Seems to be in DIC/thrombocytopenia. Labs, medications have been reviewed. Spoke to Dr. Garland. Goals of care to be discussed with family. Prognosis remains poor. Family wants to continue current management. Review of Systems Review of Systems ROS Unobtainable: unobtainable due to medical condition Narrative Review of Systems: On vent Exam Vital Signs Temp Pulse Resp BP Pulse Ox O2 Del Method O2 Flow Rate 36.2 C 81 28 H 109/48 L 96 Mechanical Ventilation 90 06/16/24 12:00 06/16/24 14:45 06/16/24 14:45 06/16/24 14:45 06/16/24 14:45 06/16/24 12:00 06/07/24 17:00 FiO2 70 06/16/24 14:43 Narrative Exam Gen: Chronically ill-appearing elderly male. S/p trach, on ventilator HEENT: Left sided gaze fixation with rotatory nystagmus. Eyes are wide open and fixed CVS: normal S1 and S2. RRR. No M/R/G. Resp: CTA B/L. No rhonchi, rales, crackles or wheezing. Abd: soft, non-tender, non-distended. BS decreased. G-tube site unremarkable. MSK: 3+ lower extremity edema. Scrotal anasarca. Bilateral feet with significant cyanosis and toes with dry grangrene. The left earlobe cyanotic. Neuro: Unresponsive Objective Labs 06/13/24 05:15 06/14/24 05:50 ABG Interpretation ABG results: 05/31/24 05/31/24 05/31/24 09:33 14:33 16:21 ABG pH 7.25 L 7.18 L* 7.30 L D ABG pCO2 68 H 78 H* D 57 H D ABG pO2 88 124 H D 69 L D ABG HCO3 30 H 29 H 28 H ABG O2 Saturation 96 99 H 94 ABG Base Excess 2 -1 1 VBG pH VBG pCO2 VBG pO2 VBG Base Excess 06/01/24 06/02/24 06/04/24 07:51 18:15 16:07 ABG pH 7.49 H D 7.47 H ABG pCO2 37 D 44 ABG pO2 49 L* D 48 L* ABG HCO3 28 H 32 H ABG O2 Saturation 89 L 86 L ABG Base Excess 5 H 7 H VBG pH 7.45 VBG pCO2 31 L VBG pO2 64 H VBG Base Excess -2 06/06/24 06/07/24 10:24 05:12 ABG pH 7.30 L ABG pCO2 47 ABG pO2 56 L* ABG HCO3 23 ABG O2 Saturation 83 L ABG Base Excess -3 VBG pH 7.35 VBG pCO2 46 D VBG pO2 52 VBG Base Excess 0 Assessment & Plan Assessment and plan (1) Fecal impaction: Status: Acute Additional Assessment & Plan Additional Plan: The patient is a 73-year-old male with previous medical history of CVA, severe cognitive deficit, chronic PEG tube and tracheostomy placement, hyperlipidemia, diabetes mellitus, recurrent UTIs, depression, anxiety, upper extremity bilateral DVT who is a subacute facility resident. He was brought to the hospital due to constipation and abdominal distention for 5 days. He also developed pneumonia and acute on chronic respiratory failure. His labs showed hypokalemia and hypernatremia. His labs throughout admissionshowed uptrending WBC, hypernatremia, persistent hypokalemia and rapidly declining kidney functions. Quality Assurance Tester Dr. Reed was consulted due to ZACH and electrolyte abnormalities #ZACH - ATN #Hypokalemia #Hypernatremia, resolved Patient currently in ATN in the setting of septic shock. Patient unable to tolerate dialysis, hypotensive during treatment. Clotted dialyzer. -Recommended ICU team to discuss goals of care with family due to worsening patient's condition and inability to tolerate dialysis. Prognosis remains poor. Plan of care discussed with Dr. Garland ?Replete electrolytes as necessary ?Monitor daily CMP ?Avoid nephrotoxic agents ?Renally dose medications #Acute encephalopathy #CVA with residual deficits #New onset of A-fib #Shock #Acute on chronic hypoxic respiratory failure #ARDS #Severe bilateral pneumonia #Large bowel obstruction improving #Hypokalemia #Leukocytosis #Normocytic anemia #Bacterial pneumonia #Muscle atrophy - management as per primary Plan of care discussed with Dr. Garland and ICU team. Prognosis remains guarded.
--- NOTE | 2024-06-16 21:23 | PC.RT ---
pt spo2 dropping to low 80s per nurse, came to room suction no sputum, oral suction with yankuer small thin cream sputum suctioned, spo2 not improving fio2 increased to 100% spo2 improved to 93%, pt remains on current settings acvc of 450, RR28, 10 peep 100% fio2 no other changes at this time.
[2024-06-17] VITALS (132 sets, daily range): BP systolic 78–162; BP diastolic 27–67; PULSE 80–95; RESP 28–37; TEMP 36.3–37.2; O2SAT 77–96; BMI 24.0
[2024-06-17] MEDS: Norepinephrine/D5W 8mg/250ml 8 MG/250 ML BAG 28.916 MG IV (00:01)
[2024-06-17] MEDS: METOCLOPRAMIDE INJ 5 MG/ML VIAL 2 ML IVP ×4 (00:14→19:31)
[2024-06-17 06:46] LABS: Base Excess -7 (-3-3); HCO3 21 mEq/L (20-26); O2 Saturation 83 % (91-98); PCO2 63 mmHg (32.0-48.0)
[2024-06-17 06:48] LABS: PO2 57 mmHg (83-108); pH, Arterial 7.14 (7.35-7.45)
[2024-06-17 06:49] LABS: Allen Test Not Performed; Inspired Oxygen, FIO2 100 %; Puncture Site Right Radial
[2024-06-17] MEDS: MIDODRINE 5 MG TABLET 10 MG GT ×3 (06:50→21:24)
[2024-06-17] MEDS: Norepinephrine/D5W 8mg/250ml 8 MG/250 ML BAG 26.288 MG IV ×2 (08:46→20:27)
[2024-06-17] MEDS: AMIODARONE HCL 200 MG TABLET GT ×2 (09:13→21:24)
[2024-06-17] MEDS: POTASSIUM CHLORIDE 10% 20 MEQ/15 ML UDC GT ×2 (09:13→21:24)
[2024-06-17] MEDS: PANTOPRAZOLE INJ 40 MG VIAL IVP (09:13)
[2024-06-17] MEDS: CALCIUM ACETATE 667 MG TABLET GT ×3 (09:14→19:31)
[2024-06-17] MEDS: Ferrous Sulfate 300 MG/5 ML UDC PO (09:14)
[2024-06-17] MEDS: SODIUM CHLORIDE 1 GM TABLET GT ×2 (09:14→21:24)
[2024-06-17] MEDS: SEVELAMER CARBONATE 0.8 GM PACKET (NON-FORMULARY) 1.6 GM GT ×3 (09:17→19:31)
[2024-06-17] MEDS: BUMETANIDE 0.5 MG TABLET 4 MG GT ×2 (09:18→21:24)
--- NOTE | 2024-06-17 10:17 | PD.IMPROG ---
Documentation for date of: 06/17/24 Subjective Subjective Interval history: Patient evaluated Cannot increase the enteral hyperalimentation rate because of the gastric residue issues Exam Vital Signs Temp Pulse Resp BP Pulse Ox O2 Del Method O2 Flow Rate 98.4 F 87 32 H 111/44 L 92 L Mechanical Ventilation 90 06/17/24 08:00 06/17/24 09:45 06/17/24 09:49 06/17/24 09:45 06/17/24 09:45 06/17/24 09:49 06/07/24 17:00 FiO2 90 06/17/24 09:49 Objective Labs 06/18/24 06:57 06/18/24 06:57 Labs: Laboratory Results - last 24 hr 06/17/24 06:32 Puncture Site Right Radial ABG pH 7.14 L* ABG pCO2 63 H ABG pO2 57 L* ABG HCO3 21 ABG O2 Saturation 83 L ABG Base Excess -7 L FiO2 100 Impressions Impression: # Failure to thrive # Mechanically ventilated through tracheostomy Continue current management ABG Interpretation ABG results: 05/31/24 05/31/24 05/31/24 09:33 14:33 16:21 ABG pH 7.25 L 7.18 L* 7.30 L D ABG pCO2 68 H 78 H* D 57 H D ABG pO2 88 124 H D 69 L D ABG HCO3 30 H 29 H 28 H ABG O2 Saturation 96 99 H 94 ABG Base Excess 2 -1 1 VBG pH VBG pCO2 VBG pO2 VBG Base Excess 06/01/24 06/02/24 06/04/24 07:51 18:15 16:07 ABG pH 7.49 H D 7.47 H ABG pCO2 37 D 44 ABG pO2 49 L* D 48 L* ABG HCO3 28 H 32 H ABG O2 Saturation 89 L 86 L ABG Base Excess 5 H 7 H VBG pH 7.45 VBG pCO2 31 L VBG pO2 64 H VBG Base Excess -2 06/06/24 06/07/24 06/17/24 10:24 05:12 06:32 ABG pH 7.30 L 7.14 L* ABG pCO2 47 63 H ABG pO2 56 L* 57 L* ABG HCO3 23 21 ABG O2 Saturation 83 L 83 L ABG Base Excess -3 -7 L VBG pH 7.35 VBG pCO2 46 D VBG pO2 52 VBG Base Excess 0 Assessment & Plan A&P Narrative 73-year-old male with past medical history of 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 1. A-fib with RVR, new onset 2. Hypokalemia ?Patient developed A-fib with RVR on 06/02/2024 ?Initial EKG showed on admission sinus tachycardia. ?Repeat EKG on 05/31/2024 that showed sinus rhythm ?EKG on 06/02/2024 showed A-fib with RVR and at this time patient's potassium was 2.9. ?Patient is currently DNR/DNI as per family's wishes ? Patient' family did not want any cardioversion at this time. Plan: ?Continue amiodarone drip for now and add amiodarone 200 p.o BID ?Recommend start patient on Eliquis 5 mg twice daily ? Recommend to keep potassium magnesium above 4 and 2 respectively to avoid any further arrhythmias ?Recommend primary care team to have goals of care discussion 06/10/2024: Patient is on mechanical ventilation at the present point of time. Family again changed his status to limited code and wanted to Patient continues to be in A-fib overnight Continue amiodarone for now. Keep potassium greater than 4 and magnesium greater than 2.0 at all times. Unable to do dialysis as per nephrology and primary critical care team as well as nephrology team did discuss goals of care with the family but the patient is still continues to be a limited code with resuscitation except for chest compression. Patient's platelets are also at 17,000. no heprin drip for now Overall patient has multiorgan dysfunction and deteriorating clinical condition over the last couple of days. At the request of the critical care team I did also speak to the son Mr. Muniz for almost 20 to 30 minutes to update the patient about the workup done till now, the treatment as well as the prognosis for the patient in detail. Discussed regarding the goals of care including comfort care in detail and answered all questions to their satisfaction. Son informed me that they will come back with their entire family tomorrow and will let us know their decision. Patient is on pressors and sedation 3. Acute on chronic hypoxic respiratory failure 4. Bilateral community-acquired pneumonia versus hospital-acquired pneumonia ? Continue management as per primary care team 5. Large bowel obstruction ?Continue management as per primary care team 6. CVA with residual deficits 7. Chronic PEG tube and tracheostomy ?Continue current management per primary care team 8. DM2 ? Continue current management as per primary care team 9. Bilateral upper extremity DVTs ? Continue current management as per primary care team 10. Anxiety 11. Depression ? Continue current management as per primary care team 12. Recurrent UTIs ? Continue current management as per primary care team There is a high probability of sudden, clinically significant or life threatening deterioration in the patient condition which required the highest level of physician preparedness to intervene urgently. I have personally spent total of 65 minutes of critical care time yesterday, exclusive of time spent on any procedures, in evaluation and management of this critically ill patient. Management of rest of the medical conditions as per primary team and other consultants. Thank you for the consult and allowing me to participate in the care of the patient. Cardiology will continue to follow. Kit Ho M.D. Interventional Cardiology Time Spent With Patient Time: Total time spent is greater than 50% in coordination of care (as documented) at patient's floor/unit and/or counseling patient:
--- NOTE | 2024-06-17 11:46 | ESPR_ITS ---
Documentation for date of: 06/17/24 Subjective Subjective Interval history: Interval history: The patient is a 73-year-old male with previous medical history of CVA, severe cognitive deficit, chronic PEG tube and tracheostomy placement, hyperlipidemia, diabetes mellitus, recurrent UTIs, depression, anxiety, upper extremity bilateral DVT who is a subacute facility resident. He was brought to the hospital due to constipation and abdominal distention for 5 days. Earlier he had similar problems and received enema, had a bowel movement and was transferred back to the facility. He had a manual disimpaction and copious amount of soft stools was evacuated by Dr. Cramer. Rectal tube was placed. Later in admission patient had developed fever, became tachycardic, tachypneic. Imaging showed bilateral pneumonia with continued to worsen, he was started on fluids. He was not able to maintain MAP more than 65, was started on Levophed. Also, EKG showed A-fib with RVR and was started on amiodarine drip. He continued to have multiple bowel movements. His labs showed hypokalemia and hypernatremia. His labs throughout admissionshowed uptrending WBC, hypernatremia, persistent hypokalemia and rapidly declining kidney functions. ICU team had a conversation with patient's family over regarding goals of care, patient's family decided to proceed with full treatment but not to proceed with chest compressions in case of cardiac arrest, patient is limited code. Medical Office Clerk Dr. Reed was consulted due to ZACH and electrolyte abnormalities treaent and management. 06/05/2024: Patient was seen and examined by the bedside in the ICU. Saturating in the low 90s on FiO2 70%. Continues to require Levophed support. Labs showed sodium 151, potassium 2.9, chloride 113, bicarb 21.3, BUN 57, creatinine 3.2, EGFR 20, glucose 122, corrected calcium 8.4, AST 209, ALT 78, albumin 2.4. Due to hemodynamic instability and patient continuing to require Levophed, will hold off dialysis for today and will try to correct the electrolyte abnormalities and start free water flushes at 100 mL/h. Repeat renal panel showed sodium 150, potassium 3.5, chloride 113, BUN 58, creatinine 3.4, EGFR 18. 06/06/2024: Patient seen and examined at the bedside in the ICU. Today patient opens eyes to the verbal stimulation, but does not follow the objects or follow commands, continues to have rotatory nystagmus and left-sided gaze fixation. Yesterday patient's family decided to proceed with dialysis, dialysis treatment was ended early due to catheter not functioning, after attempting a bowel flush both ports remains sluggish. Dialysis session was stopped. Blood in the arterial line returned but blood and the venous line clotted was unable to return. CBC stat showed hemoglobin 7.3, hemoglobin earlier this day was 8.0. Today patient had a repeat dialysis session, 1 L of fluid was removed. A.m. labs showed hemoglobin 7.4, hematocrit 21.2, platelets 45, INR 1.4, fibrinogen 515, D-dimer more than 3820. Sodium 143, potassium 3.0, BUN 39, creatinine 2.1, lactic acid 3.4. 06/07/2024: Patient seen and examined at bedside in ICU, unable to tolerate dialysis, patient was given IV albumin, blood pressure does not tolerate dialysis treatment. Patient was able to complete dialysis yesterday, had about 804 mL removed, was given 1 unit of IV albumin. Patient's labs reviewed, show WBC 14.2, RBC 2.27, hemoglobin 6.6, hematocrit 18.7, platelet count 20,000, sodium 141, potassium 3.5, bicarb 19.7, BUN 54, creatinine 3.2, GFR 20, total bilirubin 1.7 AST 167 ALT 99, alk phos 188. Patient has poor prognosis, is unable to tolerate dialysis, recommended ICU team to discuss goals of care with family. 06/08/2024: Patient seen and examined at bedside in ICU. Yesterday was not able to unable to tolerate dialysis. Labs show WBC 17.9, hemoglobin 8.4, platelets 17, sodium 138, potassium 2.2, BUN 66, creatinine 3.4, EGFR 18. Patient is not a candidate for a dialysis due hemodynamic instability and developing DIC. Will continue to monitor, patient's prognosis remains poor. 06/09/2024 patient currently seen in ICU. Remains on the ventilator. Labs reviewed. unable to do dialysis due to hemodynamic instability, platelet count of 17,000 and extremely thick blood which is clotting of the dialyzer's. Cannot do heparin drip due to thrombocytopenia. Suspect patient in DIC. Prognosis remains poor. Plan of care discussed with Dr. Garland and ICU team. 06/17/2024 patient currently seen in ICU. Remains on ventilator, nonresponsive. Urine output very minimal. Unfortunately cannot do dialysis due to hemodynamic instability and clotting of dialyzer's. Seems to be in DIC/thrombocytopenia. Labs, medications have been reviewed. Spoke to Dr. Garland. Goals of care to be discussed with family. Prognosis remains poor. Family wants to continue current management. seems to be imminent. Patient with significant gangrene of the toes Review of Systems Review of Systems ROS Unobtainable: unobtainable due to medical condition Narrative Review of Systems: On vent Exam Vital Signs Temp Pulse Resp BP Pulse Ox O2 Del Method O2 Flow Rate 36.9 C 84 32 H 117/42 L 92 L Mechanical Ventilation 90 06/17/24 08:00 06/17/24 11:09 06/17/24 10:15 06/17/24 11:09 06/17/24 11:09 06/17/24 10:19 06/07/24 17:00 FiO2 100 06/17/24 11:09 Narrative Exam Gen: Chronically ill-appearing elderly male. S/p trach, on ventilator HEENT: Left sided gaze fixation with rotatory nystagmus. Eyes are wide open and fixed CVS: normal S1 and S2. RRR. No M/R/G. Resp: CTA B/L. No rhonchi, rales, crackles or wheezing. Abd: soft, non-tender, non-distended. BS decreased. G-tube site unremarkable. MSK: 3+ lower extremity edema. Scrotal anasarca. Bilateral feet with significant cyanosis and toes with grangrene. Neuro: Unresponsive Objective Labs 06/18/24 06:57 06/18/24 06:57 Labs: Laboratory Results - last 24 hr 06/17/24 06:32 Puncture Site Right Radial ABG pH 7.14 L* ABG pCO2 63 H ABG pO2 57 L* ABG HCO3 21 ABG O2 Saturation 83 L ABG Base Excess -7 L FiO2 100 ABG Interpretation ABG results: 05/31/24 05/31/24 05/31/24 09:33 14:33 16:21 ABG pH 7.25 L 7.18 L* 7.30 L D ABG pCO2 68 H 78 H* D 57 H D ABG pO2 88 124 H D 69 L D ABG HCO3 30 H 29 H 28 H ABG O2 Saturation 96 99 H 94 ABG Base Excess 2 -1 1 VBG pH VBG pCO2 VBG pO2 VBG Base Excess 06/01/24 06/02/24 06/04/24 07:51 18:15 16:07 ABG pH 7.49 H D 7.47 H ABG pCO2 37 D 44 ABG pO2 49 L* D 48 L* ABG HCO3 28 H 32 H ABG O2 Saturation 89 L 86 L ABG Base Excess 5 H 7 H VBG pH 7.45 VBG pCO2 31 L VBG pO2 64 H VBG Base Excess -2 06/06/24 06/07/24 06/17/24 10:24 05:12 06:32 ABG pH 7.30 L 7.14 L* ABG pCO2 47 63 H ABG pO2 56 L* 57 L* ABG HCO3 23 21 ABG O2 Saturation 83 L 83 L ABG Base Excess -3 -7 L VBG pH 7.35 VBG pCO2 46 D VBG pO2 52 VBG Base Excess 0 Assessment & Plan Assessment and plan (1) Fecal impaction: Status: Acute Additional Assessment & Plan Additional Plan: The patient is a 73-year-old male with previous medical history of CVA, severe cognitive deficit, chronic PEG tube and tracheostomy placement, hyperlipidemia, diabetes mellitus, recurrent UTIs, depression, anxiety, upper extremity bilateral DVT who is a subacute facility resident. He was brought to the hospital due to constipation and abdominal distention for 5 days. He also developed pneumonia and acute on chronic respiratory failure. His labs showed hypokalemia and hypernatremia. His labs throughout admissionshowed uptrending WBC, hypernatremia, persistent hypokalemia and rapidly declining kidney functions. Medical Office Clerk Dr. Reed was consulted due to ZACH and electrolyte abnormalities #ZACH - ATN #Hypokalemia #Hypernatremia, resolved Patient currently in ATN in the setting of septic shock. Patient unable to tolerate dialysis, hypotensive during treatment. Clotted dialyzer. -Recommended ICU team to discuss goals of care with family due to worsening patient's condition and inability to tolerate dialysis. Prognosis remains poor. Plan of care discussed with Dr. Garland ?Replete electrolytes as necessary ?Monitor daily CMP ?Avoid nephrotoxic agents ?Renally dose medications #Acute encephalopathy #CVA with residual deficits #New onset of A-fib #Shock #Acute on chronic hypoxic respiratory failure #ARDS #Severe bilateral pneumonia #Large bowel obstruction improving #Hypokalemia #Leukocytosis #Normocytic anemia #Bacterial pneumonia #Muscle atrophy - management as per primary Plan of care discussed with Dr. Garland and ICU team. Prognosis remains guarded.
--- NOTE | 2024-06-17 12:55 | PD.RESPRO ---
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 Patient recently came to the ED on 05/24/2024 with similar complaints and received enema following which patient had a bowel movement and transferred back to the facility. Later patient was still found to have constipation for which Dr. Durant was consulted and patient received different bowel regimens and GoLytely with no much effect on constipation. As the patient is having progressive severe abdominal distention with constipation despite bowel regimens and GoLytely he was brought to the hospital today. No history of fever, vomiting. Dr. Durant was consulted and he tried to manually disimpact the stools but unsuccessful. Later Dr Cramer was consulted. 06/10/2024: The patient was examined at the bedside this morning. He continues to be in respiratory distress, RR 30-35, saturating greater than 88% on FiO2 70%. He continues to be on Levophed drip at 0.21. Blood works were done by withdrawing the blood from right femoral hemodialysis catheter. Physical examination was significant for blisters of size measuring up to 2 into 3 cm on left lower extremity, and bluish discoloration of bilateral lower extremity distal half of bilateral foot. Peripheral pulses were very minimally palpable, and the patient is not a candidate for any surgical procedure given the platelet count of 18. Medicine labs are significant for white count trending down to 19.7, hemoglobin 8.6, platelet 28, PT 13.6, INR 1.3, PTT 43.9, and fibrinogen 386. Chemistry revealed sodium 132, potassium 3.3, was repleted with 20 mEq of oral KCl, BUN 81, creatinine 4.0, blood sugar 148, phosphorus 5.5 and we will continue with calcium acetate and sevelamer. Liver enzymes trending down. We will continue with 3 mg IV Bumex twice daily as patient has been bringing out some urine, approximately 500 cc in the entire daytime. Updates were given to the family members. We removed right femoral hemodialysis catheter as the patient is not a candidate for hemodialysis at this point, and it would only lead to further complications. 06/11/24: The patient was examined and evaluated at the bedside this morning. Overnight, it was difficult to get access to PIV lines, and family members were called and Goal of care discussion was done. Patient decision maker Meli wished to proceed with DNR/DNI with no aggressive intervention, POLST was signed as a witness with charge nurse. The patient was desaturating to 70s multiple times, and was requiring ventilation through Ambu bag. Multiple suctioning was required before it would improve oxygen saturation. Labs were significant for white count of 18.2, hemoglobin 6.6 and was ordered 1 unit of PRBC, platelet count 16 and 1 unit of platelet was ordered. Potassium was 3.5 and 20 mEq of oral KCl was given via PEG tube. The patient was bringing out some urine, and was started on Bumex drip 1 mg/h. As the phosphorus was 6.3 we increased the dose of sevelamer carbonate to 1600 Mg p.o. 3 times daily. 06/12/2024: The patient was examined and evaluated at the bedside this morning. Overnight, the patient's O2 saturation was trending down so was bagged by ambu bag, patient bringing adequate urine but unable to measure. Multiple attempts were done to withdraw labs but was unsuccessful. 06/13/2024: The patient was examined and evaluated at the bedside this morning again. No any active overnight events. He was saturating 92% on Fio2 80%. WBC trended up to 25.1, Hb 7.1, with improvement in platlet to 39. Na 126, and K 3.0, repleted with 40 MEQ KCL GT. Renal panel consistent for ATN. Goals of care was discussed with the entire family members and they wished do proceed with current medical management. 06/14/2024: Patient was seen and examined at bedside. No overnight events. Difficulty drawing labs this morning due to DIC, patient blood rapidly clotting in vials. Future lab draws discontinued, will order if needed. Cyanosis progressing. Patient remains minimally responsive. Patient is making some amount of urine, scheduled Bumex ordered. Dilauded ordered for patient pain/discomfort. 06/15/2024: Patient seen and examined at bedside. No labs drawn this morning. Patient had 3 unmeasured but large urinary voids overnight. Will continue with Bumex, will give with albumin for increased diuresis. potassium 20mEq BID added due to continuous diuresis. Patient minimally responsive. Decreased levophed today. Pressures on vent remain elevated, peak pressure >40 and plateau pressure 39. 06/16/2024: Patient seen and examined at bedside. No lab draws. Patient had 3 unmeasured but moderate voids overnight. Patient receiving Bumex. Patient received potassium and salt tablets. No change in mentation. Cyanosis and gangrene of left foot not advancing. Pressor requirements unchanged. 06/17/2024: Patient seen and examined at bedside. ABG drawn: pH 7.14, pCO2 63, pO2 57. RR increased from 28 to 32. Patient edema unchanged. Vent pressures remain high. Exam Vital Signs Temp Pulse Resp BP Pulse Ox O2 Del Method O2 Flow Rate 98.4 F 84 32 H 117/42 L 92 L Mechanical Ventilation 90 06/17/24 08:00 06/17/24 11:09 06/17/24 10:15 06/17/24 11:09 06/17/24 11:09 06/17/24 10:19 06/07/24 17:00 FiO2 100 06/17/24 11:09 Narrative Exam PE: Gen: Alert, poorly responsive. Tracheostomy. HEENT: NCAT, anicteric conjunctivae. Dry mucous membranes. Left ear cyanotic. CVS: No M/R/G. Afib Resp: Coarse lung sounds. Rhonchi and wheezing all lung ansari. Abd: Abdomen distended, soft. PEG tube. MSK: Good ROM in BUE & BLE. Bilateral lower and upper extremity 4+ edema with anasarca. Weeping of upper extremities bilaterally. Edematous scrotum with ulcerations. Left and right foot cyanosis, progressing up to distal half of BL foot, Peripheral pulses very much feeble on dorsal pedis and posterior femoral. Left toes necrosis. Skin tear left kulkarni. Neuro: CN II-XII grossly intact. Baseline nonverbal. Objective Labs 06/13/24 05:15 06/14/24 05:50 Labs: Laboratory Results - last 24 hr 06/17/24 06:32 Puncture Site Right Radial ABG pH 7.14 L* ABG pCO2 63 H ABG pO2 57 L* ABG HCO3 21 ABG O2 Saturation 83 L ABG Base Excess -7 L FiO2 100 ABG Interpretation ABG results: 05/31/24 05/31/24 05/31/24 09:33 14:33 16:21 ABG pH 7.25 L 7.18 L* 7.30 L D ABG pCO2 68 H 78 H* D 57 H D ABG pO2 88 124 H D 69 L D ABG HCO3 30 H 29 H 28 H ABG O2 Saturation 96 99 H 94 ABG Base Excess 2 -1 1 VBG pH VBG pCO2 VBG pO2 VBG Base Excess 06/01/24 06/02/24 06/04/24 07:51 18:15 16:07 ABG pH 7.49 H D 7.47 H ABG pCO2 37 D 44 ABG pO2 49 L* D 48 L* ABG HCO3 28 H 32 H ABG O2 Saturation 89 L 86 L ABG Base Excess 5 H 7 H VBG pH 7.45 VBG pCO2 31 L VBG pO2 64 H VBG Base Excess -2 06/06/24 06/07/24 06/17/24 10:24 05:12 06:32 ABG pH 7.30 L 7.14 L* ABG pCO2 47 63 H ABG pO2 56 L* 57 L* ABG HCO3 23 21 ABG O2 Saturation 83 L 83 L ABG Base Excess -3 -7 L VBG pH 7.35 VBG pCO2 46 D VBG pO2 52 VBG Base Excess 0 Quality Measures Quality Measures VTE prophylaxis Advance care planning discussed with:: spouse and child Assessment & Plan Assessment Current Active Medications: Generic Name Dose Route Start Last Admin Trade Name Freq PRN Reason Stop Dose Admin Acetaminophen 650 mg 06/04/24 15:09 06/04/24 16:40 Acetaminophen Lindsey 325 Mg/10 Ml Udc GT 07/04/24 15:08 650 mg Q6HR PRN Administration Pain Or Fever > 100.4 Protocol Albuterol/Ipratropium 3 ml 06/04/24 15:33 Albuterol/Ipratropium (Duoneb) Rt Lindsey 3 Ml Nebu INH 07/04/24 15:32 Q2HR PRN SHORTNESS OF BREATH OR WHEEZE Amiodarone HCl 200 mg 06/05/24 21:00 06/17/24 09:13 Amiodarone Hcl 200 Mg Tablet GT 07/05/24 20:59 200 mg BID XOCHITL Administration Artificial Tears 0 drop 06/08/24 19:44 06/08/24 20:14 Artificial Tears 225 Drop/15 Ml Btl BOTH EYES 07/08/24 19:43 1 drop PRN PRN Administration TO KEEP EYES MOIST Bumetanide 4 mg 06/14/24 21:00 06/17/24 09:18 Bumetanide 0.5 Mg Tablet GT 07/14/24 20:59 4 mg BID XOCHITL Administration Calcium Acetate 667 mg 06/08/24 08:45 06/17/24 09:14 Calcium Acetate 667 Mg Tablet GT 07/04/24 18:44 667 mg TIDWM XOCHITL Administration Dextrose 25 ml 06/04/24 15:32 Dextrose 50%-Water Inj 50 Ml Syringe IV 07/04/24 15:31 Q15MIN PRN BG 50-70 responsive npo pt Dextrose 50 ml 06/04/24 15:32 Dextrose 50%-Water Inj 50 Ml Syringe IV 07/04/24 15:31 Q15MIN PRN BG <50 OR BG <70 & pt unresponsive Ferrous Sulfate 300 mg 06/11/24 17:30 06/17/24 09:14 Ferrous Sulfate 300 Mg/5 Ml Udc PO 07/11/24 17:29 300 mg QDAY XOCHITL Administration Heparin Sodium (Porcine) 5,000 unit 06/04/24 22:00 06/06/24 06:18 Heparin Sod Inj 5000 Unit/Ml Vial SC 06/18/24 21:59 5,000 unit Q8HR XOCHITL Administration Heparin Sodium (Porcine) 2,200 unit 06/05/24 17:03 06/07/24 08:55 Heparin Sod Inj 1000 Unit/Ml Vial 10 Ml INDWELLCAT 06/19/24 17:02 2,200 unit PRN PRN Administration DIALYSIS Hydromorphone HCl 0.25 mg 06/14/24 13:05 Hydromorphone Inj 2 Mg/Ml Vial IVP 06/19/24 13:04 Q3HR PRN PAIN Protocol Norepinephrine/Dextrose 8 mg in 250 mls @ 6.572 mls/hr 06/03/24 11:37 06/17/24 09:38 Levophed In D5w 8mg/250ml IV 07/03/24 11:36 0.16 mcg/kg/min .Q24H PRN 21.03 mls/hr PER PROTOCOL Titration Protocol 0.05 MCG/KG/MIN Albumin Human 25 gm in 100 mls @ 100 mls/min 06/05/24 17:05 06/07/24 08:32 Albuminar-25 Ivpb IV Infused PRN PRN Infusion DIALYSIS Insulin Human Regular 0 unit 06/04/24 18:00 06/17/24 07:43 Insulin Hum Regular 1 Unit/0.01 Ml (Per Unit) SC 07/04/24 17:59 Not Given Q6HR XOCHITL Protocol Lactulose 20 gm 06/08/24 09:00 06/09/24 08:54 Lactulose Syrup 20 Gm/30 Ml Udc GT 07/04/24 21:59 Not Given QDAY XOCHITL Protocol Metoclopramide HCl 5 mg 06/11/24 13:15 06/17/24 06:47 Metoclopramide Inj 5 Mg/Ml Vial 2 Ml IVP 07/11/24 13:14 5 mg Q6HR XOCHITL Administration Protocol Midodrine 10 mg 06/14/24 14:00 06/17/24 06:50 Midodrine 5 Mg Tablet GT 07/14/24 13:59 10 mg TID XOCHITL Administration Pantoprazole Sodium 40 mg 06/04/24 15:30 06/17/24 09:13 Pantoprazole Inj 40 Mg Vial IVP 07/04/24 15:29 40 mg QDAY XOCHITL Administration Pharmacy Consult 1 each 06/04/24 18:24 Pharmacy Renal Dose Adjustment 1 Ea XX 07/04/24 18:23 PRN PRN CONSULT Potassium Chloride 20 meq 06/16/24 09:00 06/17/24 09:13 Potassium Chloride 10% 20 Meq/15 Ml Udc GT 07/16/24 08:59 20 meq BID XOCHITL Administration Sevelamer Carbonate 1.6 gm 06/11/24 17:30 06/17/24 09:17 Sevelamer Carbonate 0.8 Gm Packet (Non-Formulary) GT 07/11/24 17:29 1.6 gm TIDWM XOCHITL Administration Sodium Chloride 1 gm 06/14/24 13:15 06/17/24 09:14 Sodium Chloride 1 Gm Tablet GT 07/14/24 13:14 1 gm BID XOCHITL Administration Plan 73-year-old male with 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 Neuro: #Chronic encephalopathy #CVA with residual deficits Metabolic encephalopathy due to hypoxia Patient is nonverbal at baseline, per family at bedside he is normally somewhat interactive. Currently patient is responsive only to pain, opens eyes, does not track sounds. Patient became close to baseline, responds to loud sounds, does not follow commands or have purposeful movement. Patient became agitated during dialysis, sedated to maintain vent synchronicity. Patient no longer candidate for dialysis as the blood is too thick to pull out of veins -Monitor CVS: #Septic shock 2/ Acenetobacter baummani and enterobacter aerogenes pneumonia Patient started on levofloxacin based on previous cultures, dosed for acute kidney injury. -Close monitoring -Levophed, titrate as needed -Levofloxacin 750 mg IV x1, followed by Levofloxacin 500 mg IV q48h (06/04-06/14) -Clindamycin 600mg IV q6h (started 06/07-06/11) -Follow-up blood cultures are negative #Bilateral LL PAD Physical exam revealed severe peripheral arterial disease with, minimal pulses felt at BL dorsalis pedis and posterior tibialis, with bluish discoloration of BL distal half of foot. -Patient is not a candidate for any surgical intervention due to DIC and not a candidate for antiplatelet as platelet count of 39 #Afib Patient developed afib with RVR prompting rapid response. Amio bolus given, drip completed. Worsening tachycardia during dialysis, resolved with 150mg bolus amiodorone x1. -amiodarone 200mg GT BID -telemonitoring Pulm: #Acute on chronic hypoxic respiratory failure #Aspiration pneumonia #ARDS Patient developed worsening hypoxia despite increasing FiO2 on the floors following massive aspiration. Chest x-ray shows significant bilateral pneumonia, more severe on the left side. Patient has significantly distended abdomen, present on lungs. ABG showed pH 7.18, pCO2 70, pO2 124. Vent settings changed to increase tidal volume and respiratory rate, repeat ABG showed pH 7.3, pCO2 57, pO2 69. Patient improved enough for downgrade to telemetry, was later upgraded back to ICU for worsening hypoxia, hypotension, afib with RVR. Patient continues to have high FiO2 requirements to maintain saturation. Tidal volume decreased from 450 to 380. After sedation discontinued, patient became hypoxic/hypertensive, initially managed with vent settings but required emergent bronchoscopy with lavage of bilateral lungs. Chest x-ray showed increasing fluid in lungs. Patient has elevated pressures on vent -Maintain vent settings, wean down FiO2 as tolerated -Lung protective vent strategies -Duoneb as needed -Antibiotic course completed -Diurese to remove excess fluids GI: #Transaminitis DDx Medication effect vs. severe acute illness Patient has had mild transaminitis during hospital stay. Slightly uptrending, patient on levaquin and amiodarone. Timing does not match rise in LFTs, could be contributing factor. Downtrending #PEG tube Patient has chronic PEG tube. Feeds have been held due to large bowel obstruction, now resolved. -Tube feeds, 20ml/hr Renal: #ATN Patient developed ATN due to ischemia in setting of hypotension. Patient had left femoral tri-flow cath placed for dialysis. Patient had difficulty with dialysis. On third day, blood was too thick to properly dialyze. Patient deemed to unstable for furhter dialysis by counselor [facility]. Family updated on patient status. Patient anuric. Bumex 3mg IV given x1 without urine output. Patient remains severely fluid overloaded. Patient started voiding with Bumex. -Started on Bumex 4mg GT BID -Will give albumin with Bumex to increase effectiveness -Not suitable candidate for dialysis -Unable to obtain labs #Hypokalemia Not monitoring daily labs. Patient diuresing with Bumex -Potassium 20 mEq GT BID #Hyponatremia Patient sodium downtrending before lab draws discontinued. Hypervolemic hyponatremia due to poor urinary output. -Diuresis -Salt tab 1gm GT BID #Hyperphosphetemia -calcium acetate TID and sevelamer increased to 1.6 g TID Endo: #DM Patient history -ISS Heme: #Thrombocytopenia due to DIC Patient has had mild thrombocytopenia, steadily worsening for several days. Recently downtrended to 47. No signs of thrombosis or hemorrhaging. DIC panel: PT 14.5, PTT 49, Fibrinogen 515, D-Dimer >3820. LDH elevated. Platelets down to 16 Transfused with 1 Unit PRBC Patient received platelet transfusions -Treat underlying conditions -Replace platelets if <20k #Leukocytosis Likely due to infection and reactive to patient's worsening overall status. -WBC 25.2 #Microcytic anemia Patient has chronic normocytic anemia, with multiple PRBC transfusion making it normocytic No signs of bleeding. ID: #Sepsis Procal [id number]. Fevers. Patient received Vancomycin and Zosyn previously. Blood cultures grew MRSA, sputum cultures grew Acinetobacter baumannii/haemol. Will adjust antibiotic dosage for reduced creatinine clearance -Levofloxacin 750 mg IV x1, followed by Levofloxacin 500 mg IV q48h (06/04-06/14) -Clindamycin 600mg IV q6h (started 06/07-06/11) -Tylenol as needed for fevers -contact precautions Skin/MSK: #Deep tissue injury Patient has deep tissue injury to right upper back. -bandaged #Stage two pressure ulcer Patient has stage 2 pressure ulcer to right buttock. -bandaged #Dry gangrene of BL foot -Patient is not a candidate for any surgical procedure -Not a candidate for anti platelet as of low platelets #Ulceration of scrotum Patient unable to be turned regularly due to desaturations. -attempt to keep dry/clean ICU Health maintenance: Mechanical ventilation: Yes Sedation:No Diet: Tube feeds via PEG DVT ppx: SCDs GI ppx: Protonix Godinez: No IV lines: Peripheral IVs Central line: Femoral tri-flow- DC on 06/10 Arterial line: No Code status: DNR Plan of care discussed with my attending Dr. Garland. Jayjay Malagon MD PGY-1 Attending Provider Attestation/Addendum Patient seen and examined with above resident, Jayjay Malagon MD. I agree with the findings, assessment, and plan of care as documented except for any differences below. Patient with continued pressor requirement fortunately. Patient continues to have significant deconditioning from prior neurologic insult as well as superimposed acute infection requiring mechanical ventilation for healthcare associated pneumonia. Course of antibiotics have been completed and despite this patient remains hemodynamically dependent on vasopressors as well as dependent on mechanical ventilation for adequate gas exchange. Limited renal recovery with continued anasarca though we are continuing him on aggressive diuretic regimen with Bumex. There is some improvement in his scrotal swelling. Will continue supportive care with appropriate wound care management with bilateral lower extremity 4 fourths with significant gangrene secondary to vasopressor requirements and peripheral vascular disease. Patient unfortunately is not a candidate for hemodialysis number surgical intervention. Suspect autoamputation will likely occur in the coming weeks. Patient's family has been updated on a regular basis and aware of his slow overall worsening despite medical intervention and limitations of care as detailed multiple times. We are awaiting additional family from [place] to visit the patient before they admitted a decision on whether to pursue all aggressive measures or transition to comfort only. We have limited his care as per the direction to avoid any further worsening discomfort including limiting labs at this point. Total critical care time: I personally spent 35 minutes for review of physiologic parameters, directing plan of care throughout the day, and coordination of care with other specialists. This is exclusive of time spent teaching housestaff or performing separate billable procedures. Patient continues to require critical care services due to distributive shock/septic shock and acute on chronic hypoxic respiratory failure secondary to healthcare associated infection/pneumonia. Patient continues to have poor prognosis and high risk for further morbidity and ultimately mortality.
[2024-06-17] MEDS: HYDROmorphone INJ 2 MG/ML VIAL 0.25 MG IVP ×2 (13:12→21:23)
--- NOTE | 2024-06-17 14:45 | PC.SS ---
Update: Patient Trach/PEG. Skin issues present. Eyes open not tracking. Remains on pressor support.
[2024-06-18] VITALS (164 sets, daily range): BP systolic 0–143; BP diastolic 0–67; PULSE 0–118; RESP 2–36; TEMP 36.6–37.1; O2SAT 37–99; BMI 26.9
[2024-06-18] MEDS: METOCLOPRAMIDE INJ 5 MG/ML VIAL 2 ML IVP ×3 (01:30→11:31)
[2024-06-18] MEDS: Norepinephrine/D5W 8mg/250ml 8 MG/250 ML BAG 57.833 MG IV (03:29)
[2024-06-18] MEDS: MIDODRINE 5 MG TABLET 10 MG GT (06:16)
[2024-06-18 07:29] LABS: Basophils # (Auto) 0.1 Thou/mm3 (0.0-0.2); Basophils % (Auto) 0 % (0-2.5); Eosinophils % (Auto) 0 % (0-10); Hematocrit 20.6 % (41.0-53.0); Immature Granulocytes % (Auto) 3 % (0-0); Immature Granulocytes Auto 1.03 Thou/mm3 (0.00-0.00); Lymphocytes # (Auto) 0.5 Thou/mm3 (1.0-4.8); Lymphocytes % (Auto) 1 % (10-50); Mean Corpuscular HGB Conc 29.1 g/dl (31.0-37.0); Mean Corpuscular Volume 96 fL (80-100); Monocytes % (Auto) 6 % (0-12); Neutrophils # (Auto) 30.3 Thou/mm3 (1.8-7.7); Neutrophils % (Auto) 90 % (37-80); Nucleated Red Blood Cell # 1.18 Thou/mm3 (0.00-0.00); Nucleated Red Blood Cell % 4 /100 WBC (0); RDW Standard Deviation 63.2 fL (35.1-43.9); Red Blood Count 2.14 Miln/mm3 (4.50-5.90); White Blood Count 33.9 Thou/mm3 (3.8-10.6)
[2024-06-18] MEDS: Norepinephrine/D5W 8mg/250ml 8 MG/250 ML BAG 70.976 MG IV (07:37)
[2024-06-18 07:47] LABS: Alanine Aminotransferase 26 U/L (10-49); Albumin, Serum 2.8 gm/dL (3.4-4.8); Albumin/Globulin Ratio 1.2 (1.2-2.2); Alkaline Phosphatase 147 U/L (46-116); Anion Gap 17 (7-16); Aspartate Amino Transferase 43 U/L (0-34); BUN/Creatinine Ratio 20 Ratio (12-20); Bilirubin,Total 2.3 mg/dL (0.3-1.2); Blood Urea Nitrogen 95 mg/dL (9-23); Calcium 7.6 mg/dL (8.3-10.6); Calcium (Corrected) 8.6 mg/dL (8.5-10.1); Chloride 88 mMol/L (98-107); Creatinine (Component) 4.7 mg/dL (0.6-1.3); Estimated Creatinine Clearance 12.8 mL/min (>60); Globulin 2.4 gm/dL (2.3-3.5); Glucose 110 mg/dL (74-106); Osmolality,Calculated 270 (275-295); Total Protein 5.2 gm/dL (5.7-8.2); eGFR 12 See Note
[2024-06-18] MEDS: Norepinephrine/D5W 8mg/250ml 8 MG/250 ML BAG 76.86 MG IV (07:55)
[2024-06-18 07:58] LABS: Carbon Dioxide 14.2 mMol/L (20.0-31.0); Sodium 119 mMol/L (136-145)
[2024-06-18 08:20] LABS: Platelet Count 64 Thou/mm3 (140-440)
[2024-06-18] MEDS: PANTOPRAZOLE INJ 40 MG VIAL IVP (08:26)
[2024-06-18] MEDS: AMIODARONE HCL 200 MG TABLET GT (08:26)
[2024-06-18] MEDS: Ferrous Sulfate 300 MG/5 ML UDC PO (08:26)
[2024-06-18] MEDS: CALCIUM ACETATE 667 MG TABLET GT (08:26)
[2024-06-18] MEDS: SEVELAMER CARBONATE 0.8 GM PACKET (NON-FORMULARY) 1.6 GM GT (08:26)
[2024-06-18] MEDS: SODIUM CHLORIDE 1 GM TABLET GT (08:26)
[2024-06-18] MEDS: ALBUMIN HUMAN 25% IVPB 25 GM/100 ML BTL IV (08:30)
[2024-06-18 10:10] LABS: Slide Review Platelets confirmed
--- NOTE | 2024-06-18 10:32 | PD.IMPROG ---
Documentation for date of: 06/18/24 Subjective Subjective Interval history: Patient evaluated in the ICU Enteral feeding rate of 20 cc an hour which is trickle feeding Mechanically ventilated Exam Vital Signs Temp Pulse Resp BP Pulse Ox O2 Del Method O2 Flow Rate 98.7 F 56 L 26 H 86/55 L 89 L Mechanical Ventilation 80 06/18/24 07:53 06/18/24 09:17 06/18/24 09:17 06/18/24 09:17 06/18/24 09:17 06/18/24 09:17 06/18/24 07:53 FiO2 100 06/18/24 09:17 Objective Labs 06/18/24 06:57 06/18/24 06:57 Labs: Laboratory Results - last 24 hr 06/18/24 06:57 WBC 33.9 H D RBC 2.14 L Hgb 6.0 L* Hct 20.6 L* MCV 96 MCH 28.0 MCHC 29.1 L RDW Std Deviation 63.2 H Plt Count 64 L D Neut % (Auto) 90 H Lymph % (Auto) 1 L [place] % (Auto) 6 Eos % (Auto) 0 Baso % (Auto) 0 Neut # (Auto) 30.3 H Lymph # (Auto) 0.5 L [place] # (Auto) 2.0 H Eos # (Auto) 0.0 Baso # (Auto) 0.1 Immature Gran # (Auto) 1.03 H Absolute Nucleated RBC 1.18 H Immature Gran % 3 H Nucleated RBC % 4 H Sodium 119 L* Potassium 6.0 H Chloride 88 L Carbon Dioxide 14.2 L* Anion Gap 17 H BUN 95 H Creatinine 4.7 H* D Estim Creat Clear Calc 12.8 L eGFR 12 L* BUN/Creatinine Ratio 20 Glucose 110 H Calculated Osmolality 270 L Calcium 7.6 L Corrected Calcium 8.6 Total Bilirubin 2.3 H AST 43 H ALT 26 Alkaline Phosphatase 147 H Total Protein 5.2 L Albumin 2.8 L Globulin 2.4 Albumin/Globulin Ratio 1.2 Misc Test Result Platelets confirmed Impressions Impression: # Failure to thrive # Continue enteral feeding as tolerated ABG Interpretation ABG results: 05/31/24 05/31/24 05/31/24 09:33 14:33 16:21 ABG pH 7.25 L 7.18 L* 7.30 L D ABG pCO2 68 H 78 H* D 57 H D ABG pO2 88 124 H D 69 L D ABG HCO3 30 H 29 H 28 H ABG O2 Saturation 96 99 H 94 ABG Base Excess 2 -1 1 VBG pH VBG pCO2 VBG pO2 VBG Base Excess 06/01/24 06/02/24 06/04/24 07:51 18:15 16:07 ABG pH 7.49 H D 7.47 H ABG pCO2 37 D 44 ABG pO2 49 L* D 48 L* ABG HCO3 28 H 32 H ABG O2 Saturation 89 L 86 L ABG Base Excess 5 H 7 H VBG pH 7.45 VBG pCO2 31 L VBG pO2 64 H VBG Base Excess -2 06/06/24 06/07/24 06/17/24 10:24 05:12 06:32 ABG pH 7.30 L 7.14 L* ABG pCO2 47 63 H ABG pO2 56 L* 57 L* ABG HCO3 23 21 ABG O2 Saturation 83 L 83 L ABG Base Excess -3 -7 L VBG pH 7.35 VBG pCO2 46 D VBG pO2 52 VBG Base Excess 0 Assessment & Plan A&P Narrative 73-year-old male with past medical history of 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 1. A-fib with RVR, new onset 2. Hypokalemia ?Patient developed A-fib with RVR on 06/02/2024 ?Initial EKG showed on admission sinus tachycardia. ?Repeat EKG on 05/31/2024 that showed sinus rhythm ?EKG on 06/02/2024 showed A-fib with RVR and at this time patient's potassium was 2.9. ?Patient is currently DNR/DNI as per family's wishes ? Patient' family did not want any cardioversion at this time. Plan: ?Continue amiodarone drip for now and add amiodarone 200 p.o BID ?Recommend start patient on Eliquis 5 mg twice daily ? Recommend to keep potassium magnesium above 4 and 2 respectively to avoid any further arrhythmias ?Recommend primary care team to have goals of care discussion 06/10/2024: Patient is on mechanical ventilation at the present point of time. Family again changed his status to limited code and wanted to Patient continues to be in A-fib overnight Continue amiodarone for now. Keep potassium greater than 4 and magnesium greater than 2.0 at all times. Unable to do dialysis as per nephrology and primary critical care team as well as nephrology team did discuss goals of care with the family but the patient is still continues to be a limited code with resuscitation except for chest compression. Patient's platelets are also at 17,000. no heprin drip for now Overall patient has multiorgan dysfunction and deteriorating clinical condition over the last couple of days. At the request of the critical care team I did also speak to the son Mr. Muniz for almost 20 to 30 minutes to update the patient about the workup done till now, the treatment as well as the prognosis for the patient in detail. Discussed regarding the goals of care including comfort care in detail and answered all questions to their satisfaction. Son informed me that they will come back with their entire family tomorrow and will let us know their decision. Patient is on pressors and sedation 3. Acute on chronic hypoxic respiratory failure 4. Bilateral community-acquired pneumonia versus hospital-acquired pneumonia ? Continue management as per primary care team 5. Large bowel obstruction ?Continue management as per primary care team 6. CVA with residual deficits 7. Chronic PEG tube and tracheostomy ?Continue current management per primary care team 8. DM2 ? Continue current management as per primary care team 9. Bilateral upper extremity DVTs ? Continue current management as per primary care team 10. Anxiety 11. Depression ? Continue current management as per primary care team 12. Recurrent UTIs ? Continue current management as per primary care team There is a high probability of sudden, clinically significant or life threatening deterioration in the patient condition which required the highest level of physician preparedness to intervene urgently. I have personally spent total of 65 minutes of critical care time yesterday, exclusive of time spent on any procedures, in evaluation and management of this critically ill patient. Management of rest of the medical conditions as per primary team and other consultants. Thank you for the consult and allowing me to participate in the care of the patient. Cardiology will continue to follow. Kit Ho M.D. Interventional Cardiology Time Spent With Patient Time: Total time spent is greater than 50% in coordination of care (as documented) at patient's floor/unit and/or counseling patient:
[2024-06-18] MEDS: Norepinephrine/D5W 8mg/250ml 8 MG/250 ML BAG 96.075 MG IV (10:52)
--- NOTE | 2024-06-18 10:56 | XR_ITS ---
Examination: AP chest single view TECHNIQUE: AP portable semiupright chest single view Exam date and time: June 18, 2024 1104 hours Comparison June 08, 2024 INDICATIONS: ICU patient with worsening hypoxia. FINDINGS: Severe bilateral lung opacity Tracheostomy tube tip 8 cm above delmy Normal heart size No pneumothorax IMPRESSION: Severe bilateral pneumonia ARDS pattern
--- NOTE | 2024-06-18 11:30 | PD.RESPRO ---
Documentation for date of: 06/18/24 Subjective Subjective Interval history: 73-year-old male with past medical history of CVA [nonverbal at baseline], chronic peg tube, chronic tracheostomy, hyperlipidemia, diabetes mellitus, recurrent UTIs with resistant organisms, depression, anxiety, history of upper extremity bilateral DVT was brought to the hospital from subacute facility with the complaints of constipation and abdominal distention since 5 days. Patient recently came to the ED on 05/24/2024 with similar complaints and received enema following which patient had a bowel movement and transferred back to the facility. Later patient was still found to have constipation for which Dr. Durant was consulted and patient received different bowel regimens and GoLytely with no much effect on constipation. As the patient is having progressive severe abdominal distention with constipation despite bowel regimens and GoLytely he was brought to the hospital today. No history of fever, vomiting. Dr. Durant was consulted and he tried to manually disimpact the stools but unsuccessful. Later Dr Cramer was consulted. 06/10/2024: The patient was examined at the bedside this morning. He continues to be in respiratory distress, RR 30-35, saturating greater than 88% on FiO2 70%. He continues to be on Levophed drip at 0.21. Blood works were done by withdrawing the blood from right femoral hemodialysis catheter. Physical examination was significant for blisters of size measuring up to 2 into 3 cm on left lower extremity, and bluish discoloration of bilateral lower extremity distal half of bilateral foot. Peripheral pulses were very minimally palpable, and the patient is not a candidate for any surgical procedure given the platelet count of 18. Medicine labs are significant for white count trending down to 19.7, hemoglobin 8.6, platelet 28, PT 13.6, INR 1.3, PTT 43.9, and fibrinogen 386. Chemistry revealed sodium 132, potassium 3.3, was repleted with 20 mEq of oral KCl, BUN 81, creatinine 4.0, blood sugar 148, phosphorus 5.5 and we will continue with calcium acetate and sevelamer. Liver enzymes trending down. We will continue with 3 mg IV Bumex twice daily as patient has been bringing out some urine, approximately 500 cc in the entire daytime. Updates were given to the family members. We removed right femoral hemodialysis catheter as the patient is not a candidate for hemodialysis at this point, and it would only lead to further complications. 06/11/24: The patient was examined and evaluated at the bedside this morning. Overnight, it was difficult to get access to PIV lines, and family members were called and Goal of care discussion was done. Patient decision maker Meli wished to proceed with DNR/DNI with no aggressive intervention, POLST was signed as a witness with charge nurse. The patient was desaturating to 70s multiple times, and was requiring ventilation through Ambu bag. Multiple suctioning was required before it would improve oxygen saturation. Labs were significant for white count of 18.2, hemoglobin 6.6 and was ordered 1 unit of PRBC, platelet count 16 and 1 unit of platelet was ordered. Potassium was 3.5 and 20 mEq of oral KCl was given via PEG tube. The patient was bringing out some urine, and was started on Bumex drip 1 mg/h. As the phosphorus was 6.3 we increased the dose of sevelamer carbonate to 1600 Mg p.o. 3 times daily. 06/12/2024: The patient was examined and evaluated at the bedside this morning. Overnight, the patient's O2 saturation was trending down so was bagged by ambu bag, patient bringing adequate urine but unable to measure. Multiple attempts were done to withdraw labs but was unsuccessful. 06/13/2024: The patient was examined and evaluated at the bedside this morning again. No any active overnight events. He was saturating 92% on Fio2 80%. WBC trended up to 25.1, Hb 7.1, with improvement in platlet to 39. Na 126, and K 3.0, repleted with 40 MEQ KCL GT. Renal panel consistent for ATN. Goals of care was discussed with the entire family members and they wished do proceed with current medical management. 06/14/2024: Patient was seen and examined at bedside. No overnight events. Difficulty drawing labs this morning due to DIC, patient blood rapidly clotting in vials. Future lab draws discontinued, will order if needed. Cyanosis progressing. Patient remains minimally responsive. Patient is making some amount of urine, scheduled Bumex ordered. Dilauded ordered for patient pain/discomfort. 06/15/2024: Patient seen and examined at bedside. No labs drawn this morning. Patient had 3 unmeasured but large urinary voids overnight. Will continue with Bumex, will give with albumin for increased diuresis. potassium 20mEq BID added due to continuous diuresis. Patient minimally responsive. Decreased levophed today. Pressures on vent remain elevated, peak pressure >40 and plateau pressure 39. 06/16/2024: Patient seen and examined at bedside. No lab draws. Patient had 3 unmeasured but moderate voids overnight. Patient receiving Bumex. Patient received potassium and salt tablets. No change in mentation. Cyanosis and gangrene of left foot not advancing. Pressor requirements unchanged. 06/17/2024: Patient seen and examined at bedside. ABG drawn: pH 7.14, pCO2 63, pO2 57. RR increased from 28 to 32. Patient edema unchanged. Vent pressures remain high. Exam Vital Signs Temp Pulse Resp BP Pulse Ox O2 Del Method O2 Flow Rate 98.7 F 53 L 24 H 108/61 93 L Mechanical Ventilation 80 06/18/24 07:53 06/18/24 10:52 06/18/24 10:48 06/18/24 10:52 06/18/24 10:48 06/18/24 10:48 06/18/24 07:53 FiO2 100 06/18/24 10:48 Objective Labs 06/18/24 06:57 06/18/24 06:57 Labs: Laboratory Results - last 24 hr 06/18/24 06/18/24 06:57 10:37 WBC 33.9 H D RBC 2.14 L Hgb 6.0 L* Hct 20.6 L* MCV 96 MCH 28.0 MCHC 29.1 L RDW Std Deviation 63.2 H Plt Count 64 L D Neut % (Auto) 90 H Lymph % (Auto) 1 L [place] % (Auto) 6 Eos % (Auto) 0 Baso % (Auto) 0 Neut # (Auto) 30.3 H Lymph # (Auto) 0.5 L [place] # (Auto) 2.0 H Eos # (Auto) 0.0 Baso # (Auto) 0.1 Immature Gran # (Auto) 1.03 H Absolute Nucleated RBC 1.18 H Immature Gran % 3 H Nucleated RBC % 4 H Sodium 119 L* Potassium 6.0 H Chloride 88 L Carbon Dioxide 14.2 L* Anion Gap 17 H BUN 95 H Creatinine 4.7 H* D Estim Creat Clear Calc 12.8 L eGFR 12 L* BUN/Creatinine Ratio 20 Glucose 110 H Calculated Osmolality 270 L Calcium 7.6 L Corrected Calcium 8.6 Total Bilirubin 2.3 H AST 43 H ALT 26 Alkaline Phosphatase 147 H Total Protein 5.2 L Albumin 2.8 L Globulin 2.4 Albumin/Globulin Ratio 1.2 Misc Test Result Platelets confirmed Crossmatch See Detail ABG Interpretation ABG results: 05/31/24 05/31/24 05/31/24 09:33 14:33 16:21 ABG pH 7.25 L 7.18 L* 7.30 L D ABG pCO2 68 H 78 H* D 57 H D ABG pO2 88 124 H D 69 L D ABG HCO3 30 H 29 H 28 H ABG O2 Saturation 96 99 H 94 ABG Base Excess 2 -1 1 VBG pH VBG pCO2 VBG pO2 VBG Base Excess 06/01/24 06/02/24 06/04/24 07:51 18:15 16:07 ABG pH 7.49 H D 7.47 H ABG pCO2 37 D 44 ABG pO2 49 L* D 48 L* ABG HCO3 28 H 32 H ABG O2 Saturation 89 L 86 L ABG Base Excess 5 H 7 H VBG pH 7.45 VBG pCO2 31 L VBG pO2 64 H VBG Base Excess -2 06/06/24 06/07/24 06/17/24 10:24 05:12 06:32 ABG pH 7.30 L 7.14 L* ABG pCO2 47 63 H ABG pO2 56 L* 57 L* ABG HCO3 23 21 ABG O2 Saturation 83 L 83 L ABG Base Excess -3 -7 L VBG pH 7.35 VBG pCO2 46 D VBG pO2 52 VBG Base Excess 0 Quality Measures Quality Measures VTE prophylaxis Assessment & Plan Assessment Current Active Medications: Generic Name Dose Route Start Last Admin Trade Name Freq PRN Reason Stop Dose Admin Acetaminophen 650 mg 06/04/24 15:09 06/04/24 16:40 Acetaminophen [place] 325 Mg/10 Ml Udc GT 07/04/24 15:08 650 mg Q6HR PRN Administration Pain Or Fever > 100.4 Protocol Albuterol/Ipratropium 3 ml 06/04/24 15:33 Albuterol/Ipratropium (Duoneb) Rt Lind[place] 3 Ml Nebu INH 07/04/24 15:32 Q2HR PRN SHORTNESS OF BREATH OR WHEEZE Amiodarone HCl 200 mg 06/05/24 21:00 06/18/24 08:26 Amiodarone Hcl 200 Mg Tablet GT 07/05/24 20:59 200 mg BID XOCHITL Administration Artificial Tears 0 drop 06/08/24 19:44 06/08/24 20:14 Artificial Tears 225 Drop/15 Ml Btl BOTH EYES 07/08/24 19:43 1 drop PRN PRN Administration TO KEEP EYES MOIST Calcium Acetate 667 mg 06/08/24 08:45 06/18/24 11:12 Calcium Acetate 667 Mg Tablet GT 07/04/24 18:44 Not Given TIDWM XOCHITL Dextrose 25 ml 06/04/24 15:32 Dextrose 50%-Water Inj 50 Ml Syringe IV 07/04/24 15:31 Q15MIN PRN BG 50-70 responsive npo pt Dextrose 50 ml 06/04/24 15:32 Dextrose 50%-Water Inj 50 Ml Syringe IV 07/04/24 15:31 Q15MIN PRN BG <50 OR BG <70 & pt unresponsive Ferrous Sulfate 300 mg 06/11/24 17:30 06/18/24 08:26 Ferrous Sulfate 300 Mg/5 Ml Udc PO 07/11/24 17:29 300 mg QDAY XOCHITL Administration Heparin Sodium (Porcine) 5,000 unit 06/04/24 22:00 06/06/24 06:18 Heparin Sod Inj 5000 Unit/Ml Vial SC 06/18/24 21:59 5,000 unit Q8HR XOCHITL Administration Heparin Sodium (Porcine) 2,200 unit 06/05/24 17:03 06/07/24 08:55 Heparin Sod Inj 1000 Unit/Ml Vial 10 Ml INDWELLCAT 06/19/24 17:02 2,200 unit PRN PRN Administration DIALYSIS Hydromorphone HCl 0.25 mg 06/14/24 13:05 06/17/24 21:23 Hydromorphone Inj 2 Mg/Ml Vial IVP 06/19/24 13:04 0.25 mg Q3HR PRN Administration PAIN Protocol Albumin Human 25 gm in 100 mls @ 100 mls/min 06/05/24 17:05 06/07/24 08:32 Albuminar-25 Ivpb IV Infused PRN PRN Infusion DIALYSIS Norepinephrine/Dextrose 8 mg in 250 mls @ 6.863 mls/hr 06/18/24 08:00 06/18/24 11:05 Levophed In D5w 8mg/250ml IV 07/18/24 07:59 0.72 mcg/kg/min .Q24H PRN 98.82 mls/hr PER PROTOCOL Titration Protocol 0.05 MCG/KG/MIN Levofloxacin/Dextrose 750 mg in 150 mls @ 100 mls/hr 06/18/24 11:10 Levaquin Ivpb IV 06/18/24 12:39 X1 ONE Levofloxacin/Dextrose 250 mg in 50 mls @ 50 mls/hr 06/19/24 09:00 Levaquin Ivpb IV 06/26/24 08:59 QDAY XOCHITL Vancomycin/Sodium Chloride 200 mls @ 120 mls/hr 06/18/24 11:30 Vancomycin/Ns 1 Gm Ivpb IV 06/18/24 13:09 X1 ONE Insulin Human Regular 0 unit 06/04/24 18:00 06/18/24 11:22 Insulin Hum Regular 1 Unit/0.01 Ml (Per Unit) SC 07/04/24 17:59 Not Given Q6HR XOCHITL Protocol Lactulose 20 gm 06/08/24 09:00 06/09/24 08:54 Lactulose Syrup 20 Gm/30 Ml Udc GT 07/04/24 21:59 Not Given QDAY XOCHITL Protocol Metoclopramide HCl 5 mg 06/11/24 13:15 06/18/24 06:16 Metoclopramide Inj 5 Mg/Ml Vial 2 Ml IVP 07/11/24 13:14 5 mg Q6HR XOCHITL Administration Protocol Midodrine 10 mg 06/14/24 14:00 06/18/24 06:16 Midodrine 5 Mg Tablet GT 07/14/24 13:59 10 mg TID XOCHITL Administration Pantoprazole Sodium 40 mg 06/04/24 15:30 06/18/24 08:26 Pantoprazole Inj 40 Mg Vial IVP 07/04/24 15:29 40 mg QDAY XOCHITL Administration Pharmacy Consult 1 each 06/04/24 18:24 Pharmacy Renal Dose Adjustment 1 Ea XX 07/04/24 18:23 PRN PRN CONSULT Pharmacy Consult 1 each 06/18/24 11:15 Vancomycin Pharmacy To Dose 1 Each Each IV 07/18/24 11:14 QDAY PRN PROTOCOL Potassium Chloride 20 meq 06/16/24 09:00 06/18/24 08:12 Potassium Chloride 10% 20 Meq/15 Ml Udc GT 07/16/24 08:59 Not Given BID XOCHITL Sevelamer Carbonate 1.6 gm 06/11/24 17:30 06/18/24 08:26 Sevelamer Carbonate 0.8 Gm Packet (Non-Formulary) GT 07/11/24 17:29 1.6 gm TIDWM XOCHITL Administration Sodium Chloride 1 gm 06/14/24 13:15 06/18/24 08:26 Sodium Chloride 1 Gm Tablet GT 07/14/24 13:14 1 gm BID XOCHITL Administration Plan 73-year-old male with 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 Neuro: #Chronic encephalopathy #CVA with residual deficits Metabolic encephalopathy due to hypoxia Patient is nonverbal at baseline, per family at bedside he is normally somewhat interactive. Currently patient is responsive only to pain, opens eyes, does not track sounds. Patient became close to baseline, responds to loud sounds, does not follow commands or have purposeful movement. Patient became agitated during dialysis, sedated to maintain vent synchronicity. Patient no longer candidate for dialysis as the blood is too thick to pull out of veins -Monitor CVS: #Septic shock 2/2 Acenetobacter baummani and enterobacter aerogenes pneumonia Patient started on levofloxacin based on previous cultures, dosed for acute kidney injury. -Close monitoring -Levophed, titrate as needed -Levofloxacin 750 mg IV x1, followed by Levofloxacin 500 mg IV q48h (06/04-06/14) -Clindamycin 600mg IV q6h (started 06/07-06/11) -Follow-up blood cultures are negative #Bilateral LL PAD Physical exam revealed severe peripheral arterial disease with, minimal pulses felt at BL dorsalis pedis and posterior tibialis, with bluish discoloration of BL distal half of foot. -Patient is not a candidate for any surgical intervention due to DIC and not a candidate for antiplatelet as platelet count of 39 #Afib Patient developed afib with RVR prompting rapid response. Amio bolus given, drip completed. Worsening tachycardia during dialysis, resolved with 150mg bolus amiodorone x1. -amiodarone 200mg GT BID -telemonitoring Pulm: #Acute on chronic hypoxic respiratory failure #Aspiration pneumonia #ARDS Patient developed worsening hypoxia despite increasing FiO2 on the floors following massive aspiration. Chest x-ray shows significant bilateral pneumonia, more severe on the left side. Patient has significantly distended abdomen, present on lungs. ABG showed pH 7.18, pCO2 70, pO2 124. Vent settings changed to increase tidal volume and respiratory rate, repeat ABG showed pH 7.3, pCO2 57, pO2 69. Patient improved enough for downgrade to telemetry, was later upgraded back to ICU for worsening hypoxia, hypotension, afib with RVR. Patient continues to have high FiO2 requirements to maintain saturation. Tidal volume decreased from 450 to 380. After sedation discontinued, patient became hypoxic/hypertensive, initially managed with vent settings but required emergent bronchoscopy with lavage of bilateral lungs. Chest x-ray showed increasing fluid in lungs. Patient has elevated pressures on vent -Maintain vent settings, wean down FiO2 as tolerated -Lung protective vent strategies -Duoneb as needed -Antibiotic course completed -Diurese to remove excess fluids GI: #Transaminitis DDx Medication effect vs. severe acute illness Patient has had mild transaminitis during hospital stay. Slightly uptrending, patient on levaquin and amiodarone. Timing does not match rise in LFTs, could be contributing factor. Downtrending #PEG tube Patient has chronic PEG tube. Feeds have been held due to large bowel obstruction, now resolved. -Tube feeds, 20ml/hr Renal: #ATN Patient developed ATN due to ischemia in setting of hypotension. Patient had left femoral tri-flow cath placed for dialysis. Patient had difficulty with dialysis. On third day, blood was too thick to properly dialyze. Patient deemed to unstable for furhter dialysis by vegetable grader. Family updated on patient status. Patient anuric. Bumex 3mg IV given x1 without urine output. Patient remains severely fluid overloaded. Patient started voiding with Bumex. -Started on Bumex 4mg GT BID -Will give albumin with Bumex to increase effectiveness -Not suitable candidate for dialysis -Unable to obtain labs #Hypokalemia Not monitoring daily labs. Patient diuresing with Bumex -Potassium 20 mEq GT BID #Hyponatremia Patient sodium downtrending before lab draws discontinued. Hypervolemic hyponatremia due to poor urinary output. -Diuresis -Salt tab 1gm GT BID #Hyperphosphetemia -calcium acetate TID and sevelamer increased to 1.6 g TID Endo: #DM Patient history -ISS Heme: #Thrombocytopenia due to DIC Patient has had mild thrombocytopenia, steadily worsening for several days. Recently downtrended to 47. No signs of thrombosis or hemorrhaging. DIC panel: PT 14.5, PTT 49, Fibrinogen 515, D-Dimer >3820. LDH elevated. Platelets down to 16 Transfused with 1 Unit PRBC Patient received platelet transfusions -Treat underlying conditions -Replace platelets if <20k #Leukocytosis Likely due to infection and reactive to patient's worsening overall status. -WBC 25.2 #Microcytic anemia Patient has chronic normocytic anemia, with multiple PRBC transfusion making it normocytic No signs of bleeding. ID: #Sepsis Procal [id number]. Fevers. Patient received Vancomycin and Zosyn previously. Blood cultures grew MRSA, sputum cultures grew Acinetobacter baumannii/haemol. Will adjust antibiotic dosage for reduced creatinine clearance -Levofloxacin 750 mg IV x1, followed by Levofloxacin 500 mg IV q48h (06/04-06/14) -Clindamycin 600mg IV q6h (started 06/07-06/11) -Tylenol as needed for fevers -contact precautions Skin/MSK: #Deep tissue injury Patient has deep tissue injury to right upper back. -bandaged #Stage two pressure ulcer Patient has stage 2 pressure ulcer to right buttock. -bandaged #Dry gangrene of BL foot -Patient is not a candidate for any surgical procedure -Not a candidate for anti platelet as of low platelets #Ulceration of scrotum Patient unable to be turned regularly due to desaturations. -attempt to keep dry/clean ICU Health maintenance: Mechanical ventilation: Yes Sedation:No Diet: Tube feeds via PEG DVT ppx: SCDs GI ppx: Protonix Godinez: No IV lines: Peripheral IVs Central line: Femoral tri-flow- DC on 06/10 Arterial line: No Code status: DNR Plan of care discussed with my attending Dr. Garland. Jayjay Malagon MD PGY-1
[2024-06-18] MEDS: LEVOFLOXACIN/D5W 750MG IVPB 750 MG/150 ML BAG 100 MG IV (11:31)
[2024-06-18] MEDS: VANCOMYCIN/NS 1 GM IVPB 200 ML IV (12:35)
[2024-06-18] MEDS: CALCIUM GLUC/NS 1000MG IVPB 1,000 MG/50 ML BAG 50 MG IV (13:30)
[2024-06-18] MEDS: ATROPINE SULF INJ 0.1 MG/ML SYR 10 ML 1 MG IV (13:30)
[2024-06-18] MEDS: EPINEPHrine INJ 0.1 MG/ML SYRINGE 10ML 1 MG IV ×3 (13:33→13:41)
[2024-06-18] MEDS: HYDROmorphone INJ 2 MG/ML VIAL 1 MG IVP ×2 (13:33→13:44)
[2024-06-18] MEDS: Sodium Bicarb Inj 8.4% SYR 50 ML SYRINGE IV (13:40)
[2024-06-18] MEDS: MIDAZOLAM INJ 1 MG/ML VIAL 2 ML 2 MG IV (13:43)
[2024-06-18] MEDS: Norepinephrine/D5W 8mg/250ml 8 MG/250 ML BAG 137.25 MG IV (13:57)
--- NOTE | 2024-06-18 14:56 | DES_ITS ---
<Statement entered by Abdifatah Garland MD - 06/19/24 08:32> I have reviewed and agree with the note as documented. I was present at time of pronouncement. Patient with sudden development of asystole. No cranial nerve reflexes intact, normal heart sounds with breath sounds after discontinuation of mechanical ventilation. Patient was pronounced by resident as documented. Documentation for date of: 06/18/24 Pronouncement Note Date and Time of Date of : 06/18/24 Time of : 14:04 PCOD Preliminary cause of : Cardiopulmonary arrest Contributing Factors (1) Fecal impaction: Summary Additional details: MD called to bedside after patient developed cardiopulmonary arrest. Patient was DNR, no shocks. Examination was performed, including pulse checks, listening heart and lung sounds, corneal reflexes, gag reflex. Patient was declared at 1404. Examination performed under supervision of attending Dr. Garland. Jayjay Malagon MD PGY-1 Additional Data Confirmation of : no pulse, no respirations, no heart sounds, pupils fixed and dilated and other (no gag reflex) Family: contacted Attending/PCP notified?: Yes Attending physician: Abdifatah Garland MD Was code activated?: No Autopsy requested?: No tyre finisher and examiner notified?: No Organ bank notified?: Yes Advance directives: Yes
--- NOTE | 2024-06-18 15:22 | DES_ITS ---
<Statement entered by bAdifatah Garland MD - 06/19/24 08:31> Patient seen and examined with above resident, Jayjay Malagon MD. I agree with the findings, assessment, plan of care as documented except for any differences below. Patient with acute worsening overnight with increased requirements of vasopressors. Suspicion for possible new infection, most likely pulmonary. We did resume broad-spectrum antibiotics. Will stop IV diuretics for now. Patient continues to have good urine output with forced diuresis between albumin and Bumex though I do not suspect that he is volume depleted as he continues to have significant peripheral edema and high pressures within his pulmonary circuit. We did stop his potassium supplementation as his potassium is now elevated, no EKG changes on assessment this morning. Patient's family was contacted given this new finding and likely worsening given he has multiple potential sources especially with the lower extremities with gangrene that it remains at high risk for superimposed infection. There was no further extension of his ischemia in the lower extremities and upper extremities remained stable although this will likely worsen with increased requirement for vasopressors overnight. Chest x-ray did show improved volume status in both lungs and improvement with left-sided infiltrates. Intra-abdominal may have been free air though this was not read by radiology, we are planning for CT of the abdomen. However, patient developed bradycardia suddenly. Weak pulses though he never lost the pulse and resuscitation was completed with atropine, sodium bicarb, calcium gluconate, and intermittent dosing of both IV and endotracheal epinephrine. Patient was bagged appropriately and had good response though he remained hypoxic after the episode. Patient's family was notified at the initiation of intervention and told to come to bedside as the patient was imminently likely to pass away. Patient on high-dose vasopressors with normalization of blood pressure as well. Patient approximately 10 minutes later did have sudden asystole with loss of pulse. Patient was DNR and we discontinue resuscitative efforts despite attempts to reach family to be at bedside as he passed. Patient's family arrived shortly thereafter and were updated at the bedside and condolences were given. Total critical care time: I personally spent 60 minutes for review of physiologic parameters, directed plan of care throughout the day, coordination of care, and counseling patient's family. This is exclusive of time spent teaching housestaff or performing any separate billable procedures. Patient required critical state of care services secondary to septic shock and acute on chronic hypoxic respiratory failure requiring mec hanical ventilation secondary to healthcare associated pneumonia complicated by renal failure and bilateral lower extremity gangrene from high vasopressor support. Patient with poor prognosis with expected mortality given his multiorgan failure requiring close monitoring and care only available in the intensive care unit and care. 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 During hospitalization patient developed several infections, including pneumonia and bacteremia, treated with appropriate antibiotics. Patient also developed acute hypoxic respiratory failure and septic shock due to massive aspiration event. After extensive goals of care conversations with family, patient was made DNR. Patient developed ATN, and dialyisis was initiated. However, patient developed hemodynamic instability during dialysis sessions and DIC resulting clotting of dialysis lines. Patient declared not a suitable candidate for dialysis. Patient continued to require pressors during hospitalization. Despite attempts to diureise with Bumex patient had worsening fluid overload. Patient developed dry gangrene of left foot and new ulcerations of scrotum, due to high pressor requirements and fluid overload. Patient began having acutely increasing pressor requirements, followed by bradycardia and cardiopulmonary arrest. Family was notified, and attempts were made to acheive ROSC with medical management. Patient with time of at 1404, determined by MD examination. Plan of care discussed with attending Dr. Garland. Jayjay Malagon MD PGY-1 Additional Data Confirmation of as documented by pronouncing clinician: no pulse, no respirations, no heart sounds, pupils fixed and dilated and other (No gag reflex) Family: contacted Attending/PCP notified?: Yes Attending physician: Abdifatah Garland MD Was code activated?: No Autopsy requested?: No automobile insurance claim examiner notified?: No Organ bank notified?: Yes Advance directives: Yes Hospice patient?: No Visit Providers Provider Primary care physician: Juan Rolle MD Consults: 05/29/24 07:04 Consult to General Surgery Stat Comment: Fecal impaction & Colon obstruction Consulting Provider: Gill Cramer 05/30/24 00:00 Referral Wound Care Urgent Comment: 05/31/24 16:20 Consult to Search Developer Stat Comment: Consulting Provider: Betty Stokes 06/02/24 09:50 Referral Registered Dietitian Routine Comment: TF to be resumed 06/02/24 18:17 Consult to Cardiology Stat Comment: Consulting Provider: Kit Ho 06/04/24 09:56 [facility] Referral - Knowledge Deficit Routine Comment: Positive screening for knowledge deficit needs. 06/04/24 11:14 Referral Jose Stat Comment: 06/04/24 17:52 Consult to Nephrology Routine Comment: Consulting Provider: Tank Reed 06/05/24 02:00 Referral Wound Care Urgent Comment: Instructions: sdti to upper back/buttock and thigh 06/05/24 10:16 Referral Nutritional Services Routine Comment: Instructions: DTI from coccyx to lower buttocks 06/05/24 19:53 Consult to Gastroenterology Stat Comment: Consulting Provider: Krishna Durant 06/12/24 08:53 Referral Wound Care Urgent Comment: LLE blisters Diagnosis PCOD Cause of : Cardiopulmonary arrest Contributing Factors (1) Fecal impaction: Discharge Plan Plan Patient Disposition: Prescriptions/Referrals Referrals: Juan Rolle MD [Primary Care Provider] - Patient/Caregiver Discharge Instructions Print Language: Greenlandic
--- NOTE | 2024-06-18 16:03 | PC.SS ---
Regional Liaison (MARYLOU) Arpita notified that patient . SW met with patient's family: son-Flavio, daughter-Kim and -Meli. SW introduced self, role and reason. SW discussed home with family. Meli reported that she has been speaking to both homes in [place]; however, since patient was [employer], she would prefer [facility] as both businesses are associated. Release of Remains Form was signed by patient's son, Flavio. MARYLOU updated Valentín.
== END 2024-06-18 16:53 | disposition expired | DRG 870 ==
LOC: SERX 07:24 → SERHOLD 08:38 → S2NX 18:57 → S2SX 05-31 16:21 → S2NX 06-02 13:42 → S2SX 06-02 13:42 → S2NX 06-03 06:28 → S2SX 06-04 13:51
PROVIDERS: Emergency Medicine; Internal Medicine; Student in an Organized Health Care Education/Training Program; Admitting Provider Student in an Organized Health Care Education/Training Program; Emergency Provider Emergency Medicine; PCP Specialist; Visit Provider Student in an Organized Health Care Education/Training Program
DX: A41.9 Sepsis, unspecified organism (principal); G93.41 Metabolic encephalopathy; J96.21 Acute and chronic respiratory failure with hypoxia; J15.9 Unspecified bacterial pneumonia; R65.21 Severe sepsis with septic shock; N17.0 Acute kidney failure with tubular necrosis; J69.0 Pneumonitis due to inhalation of food and vomit; K94.23 Gastrostomy malfunction; E87.0 Hyperosmolality and hypernatremia; E11.52 Type 2 diabetes mellitus with diabetic peripheral angiopathy with gangrene; E87.1 Hypo-osmolality and hyponatremia; K56.41 Fecal impaction; E87.6 Hypokalemia; Z66 Do not resuscitate; E78.5 Hyperlipidemia, unspecified; F32.A Depression, unspecified; F41.9 Anxiety disorder, unspecified; I48.91 Unspecified atrial fibrillation; K40.90 Unilateral inguinal hernia, without obstruction or gangrene, not specified as recurrent; E87.8 Other disorders of electrolyte and fluid balance, not elsewhere classified; N50.89 Other specified disorders of the male genital organs; Z74.01 Bed confinement status; M65.20 Calcific tendinitis, unspecified site; I46.9 Cardiac arrest, cause unspecified; R62.7 Adult failure to thrive; Z86.718 Personal history of other venous thrombosis and embolism; Z87.440 Personal history of urinary (tract) infections; H55.09 Other forms of nystagmus; L89.312 Pressure ulcer of right buttock, stage 2; E87.70 Fluid overload, unspecified; D69.59 Other secondary thrombocytopenia; D50.9 Iron deficiency anemia, unspecified; B95.62 Methicillin resistant Staphylococcus aureus infection as the cause of diseases classified elsewhere; B96.83 Acinetobacter baumannii as the cause of diseases classified elsewhere
CPT/HCPCS: 36415; 36600; 71045; 74018; 74177; 76870; 80048; 80053; 80069; 80074; 80202; 82378; 82550; 82668; 82803; 83540; 83550; 83605; 83615; 83690; 83735; 84100; 84132; 84145; 84295; 84443; 85007; 85014; 85018; 85025; 85027; 85379; 85384; 85610; 85730; 86706; 86850; 86900; 86901; 86923; 86965; 87040; 87077; 87081; 87086; 87186; 87205; 87400; 87634; 87651; 87811; 93005; 94003; 94640; 96361; 96365; 96366; 96367; 96375; 99285; A4216; A4649; J0131; J0171; J0283; J0295; J0461; J0613; J0692; J1643; J1650; J1815; J1956; J2060; J2250; J2270; J2470; J2543; J2704; J2765; J2997; J3010; J3370; J3371; J3475; J3480; J3490; J7030; J7040; J7050; J7060; J7120; J7999; P9016; P9035; P9047; Q5105; Q5106; Q9967; S0077; A9270; J0737; J1644